=== PATIENT | male | born 1970 | race Hispanic/Latino ===

== ENCOUNTER 2019-11-27 10:51 | Inpatient (IN) | payer MEDICARE ==
--- NOTE | 2019-11-27 11:42 | Emergency Department Report ---
ED General Adult HPI - General Chief complaint: Upper Respiratory Infection Stated complaint: PRESISTENT COUGH PUI?: Yes Time Seen by Provider: 11/27/19 11:27 Source: patient, family, RN notes reviewed Mode of arrival: Ambulatory Limitations: Physical Limitation, Other (Patient is a poor historian) - History of Present Illness Initial comments: The patient was evaluated in the emergency department for symptoms described in the history of present illness. He/she was evaluated in the context of the global COVID-19 pandemic, which necessitated consideration that the patient might be at risk for infection with the virus that causes COVID-19. Institutional protocols and algorithms that pertain to the evaluation of patients at risk for COVID-19 are in a state of rapid change based on information released by regulatory bodies including the CDC and federal and state organizations. These policies and algorithms were followed during the patient's care in the emergency department. Please note that these policies, procedures and recommendations changed on a rapid basis. During the entire history and physical examination, I had on complete personal protective equipment. The patient is a 49-year-old gentleman, with a past medical history of psychiatric disease, who reportedly only takes valproic acid. He is brought to the hospital by his caregiver with a complaint of cough, weakness, malaise and fatigue. No fever, no nausea, vomiting, diarrhea, no sick contacts, no travel, and no physical pain. Patient has not had exposure to COVID that the caregiver is aware of. Patient himself is weak and only complains of cough but denies physical pain. Patient is not able to describe the qualitative nature of his symptoms, exacerbating factors, relieving factors, or aggravating factors. -: days(s) Quality: other Consistency: other Improves with: other Worsens with: other Associated Symptoms: other Treatments Prior to Arrival: other - Related Data Allergies Allergy/AdvReac Type Severity Reaction Status Date / Time No Known Allergies Allergy Unverified 11/27/19 11:24 ED Review of Systems ROS: Stated complaint: PRESISTENT COUGH Other details as noted in HPI Comment: Unobtainable due to pts medical conditions Constitutional: malaise Respiratory: cough, shortness of breath Neurological: weakness ED Past Medical Hx - Past Medical History Previous Medical History?: Yes Hx Hypertension: Yes - Surgical History Past Surgical History?: Yes Hx Coronary Stent: Yes Hx Open Heart Surgery: Yes Additional Surgical History: Back - Social History Smoking Status: Current Every Day Smoker Substance Use Type: Prescribed ED Physical Exam - General Limitations: Physical Limitation General appearance: alert, in no apparent distress, obese - Head Head exam: Present: atraumatic, normocephalic - Eye Eye exam: Present: normal appearance, EOMI - ENT ENT exam: Present: normal exam, normal orophraynx, mucous membranes moist, normal external ear exam - Neck Neck exam: Present: normal inspection, full ROM. Absent: tenderness, meningismus - Respiratory Respiratory exam: Present: decreased breath sounds. Absent: respiratory distress, wheezes, rales, rhonchi, stridor - Cardiovascular Cardiovascular Exam: Present: regular rate, normal rhythm, normal heart sounds. Absent: bradycardia, tachycardia, irregular rhythm, systolic murmur, diastolic murmur, rubs, gallop - GI/Abdominal GI/Abdominal exam: Present: soft. Absent: distended, tenderness, guarding, rebound, rigid, pulsatile mass - Rectal Rectal exam: Present: deferred - Extremities Exam Extremities exam: Present: normal inspection, full ROM, pedal edema (1+ edema in the bilateral lower extremity), other (2+ pulses noted in the bilateral upper and lower extremities. There is no palpable cord. negative Homans sign. Muscular compartments are soft. The pelvis is stable.). Absent: calf tenderness - Back Exam Back exam: Present: normal inspection. Absent: tenderness, CVA tenderness (R), CVA tenderness (L), paraspinal tenderness, vertebral tenderness - Neurological Exam Neurological exam: Present: alert, other (No facial droop. Tongue midline. Extraocular movements intact bilaterally. Facial sensation intact to light touch in V1, V2, V3 distribution bilaterally. 5 and a 5 strength in 4 e xtremities. Sensation intact to light touch in 4 extremities.) - Psychiatric Psychiatric exam: Present: flat affect - Skin Skin exam: Present: warm, dry, intact, normal color. Absent: rash ED Course Vital Signs 11/27/19 11/27/19 11/27/19 11:18 11:41 11:45 Temperature 97.9 F Pulse Rate 103 H 98 H Respiratory 22 11 L Rate Blood Pressure 144/72 O2 Sat by Pulse 67 L 88 92 Oximetry 11/27/19 11/27/19 11/27/19 11:48 12:00 12:28 Temperature Pulse Rate 94 H 92 H Respiratory 19 22 Rate Blood Pressure 149/81 149/81 O2 Sat by Pulse 92 96 Oximetry - Reevaluation(s) Reevaluation #1: 11/27/19 12:19 Differential diagnosis, including but not limited to: COVID-19, bacterial pneu monia, viral pneumonia, congestive heart failure Assessment and plan: 49-year-old gentleman, presenting in the midst of the COVID pandemic, hypoxic, with malaise and fatigue, suspect COVID-19. Arterial blood gas demonstrates respiratory acidosis, hypercarbia, hypoxemic respiratory failure, partial metabolic compensation. Patient is awake, and protecting his airway, and does not appear to be in any acute distress, however, he is markedly hypoxic and hypoxemic. We will initiate BiPAP therapy, initiate steroids empirically, obtain appropriate laboratory studies to risk stratify for cytokine storm, placed on isolation, obtain x-ray of the chest, and EKG. Caregiver endorses no DVT or pulmonary embolism risk factors. Reassess once laboratory studies and x-ray have resulted, anticipate admission to the intensive care unit versus stepdown unit. Of note, on supplemental oxygen, 6 L, saturating at 90 to 93%. Reevaluation #2: 11/27/19 12:56 Patient appears clinically improved on BiPAP. Hospital physician, Dr. Nahomi [place] to admit to step down unit We will place infectious disease consult as a courtesy given high suspicion for COVID, will defer to inpatient team to further follow this up. Reevaluation #3: 11/27/19 14:09 Inflammatory markers elevated. Elevated proBNP is appreciated, we do suspect that the patient has pulmonary process going on, but I do not suspect acute congestive heart failure at this time. Patient found to have mild hyperkalemia, currently on BiPAP, GFR 59, mildly to moderately uremic. May be a component of dehydration. Given that patient is on BiPAP, nursing team to perform a swallow screen and if he passes, Kayexalate to be administered orally. If he does not pass, Kayexalate to be administered rectally. Transaminitis reviewed and appreciated. There is no right upper quadrant pain or tenderness. ED Medical Decision Making - Lab Data Result diagrams: 11/27/19 12:08 11/27/19 12:08 Vital Signs 11/27/19 11/27/19 11/27/19 11:18 11:41 11:45 Temperature 97.9 F Pulse Rate 103 H 98 H Respiratory 22 11 L Rate Blood Pressure 144/72 O2 Sat by Pulse 67 L 88 92 Oximetry 11/27/19 11/27/19 11:48 12:00 Temperature Pulse Rate 94 H Respiratory 19 Rate Blood Pressure 149/81 O2 Sat by Pulse 92 Oximetry Lab Results 11/27/19 11/27/19 11/27/19 Range/Units 11:55 12:08 12:08 WBC 10.4 (4.5-11.0) K/mm3 RBC 4.74 (3.65-5.03) M/mm3 Hgb 15.1 (11.8-15.2) gm/dl Hct 45.8 H (35.5-45.6) % MCV 97 H (84-94) fl MCH 32 (28-32) pg MCHC 33 (32-34) % RDW 14.1 (13.2-15.2) % Plt Count 189 (140-440) K/mm3 Add Manual Diff Complete Total Counted 100 Seg Neuts % (Manual) 76.0 H (40.0-70.0) % Band Neutrophils % 3.0 % Lymphocytes % (Manual) 3.0 L (13.4-35.0) % Reactive Lymphs % (Man) 0 % Monocytes % (Manual) 17.0 H (0.0-7.3) % Eosinophils % (Manual) 0 (0.0-4.3) % Basophils % (Manual) 0 (0.0-1.8) % Metamyelocytes % 1.0 % Myelocytes % 0 % Promyelocytes % 0 % Blast Cells % 0 % Nucleated RBC % 1.0 H (0.0-0.9) % Seg Neutrophils # Man 7.9 H (1.8-7.7) K/mm3 Band Neutrophils # 0.3 K/mm3 Lymphocytes # (Manual) 0.3 L (1.2-5.4) K/mm3 Abs React Lymphs (Man) 0.0 K/mm3 Monocytes # (Manual) 1.8 H (0.0-0.8) K/mm3 Eosinophils # (Manual) 0.0 (0.0-0.4) K/mm3 Basophils # (Manual) 0.0 (0.0-0.1) K/mm3 Metamyelocytes # 0.1 K/mm3 Myelocytes # 0.0 K/mm3 Promyelocytes # 0.0 K/mm3 Blast Cells # 0.0 K/mm3 WBC Morphology Not Reportable Hypersegmented Neuts Not Reportable Hyposegmented Neuts Not Reportable Hypogranular Neuts Not Reportable Smudge Cells Not Reportable Toxic Granulation Not Reportable Toxic Vacuolation Not Reportable Dohle Bodies Not Reportable Pelger-Huet Anomaly Not Reportable Malena Rods Not Reportable Platelet Estimate Consistent w auto Clumped Platelets Not Reportable Plt Clumps, EDTA Not Reportable Large Platelets Not Reportable Giant Platelets Not Reportable Platelet Satelliting Not Reportable Plt Morphology Comment Not Reportable RBC Morphology Normal Dimorphic RBCs Not Reportable Polychromasia Not Reportable Hypochromasia Not Reportable Poikilocytosis Not Reportable Anisocytosis Not Reportable Microcytosis Not Reportable Macrocytosis Not Reportable Spherocytes Not Reportable Pappenheimer Bodies Not Reportable Sickle Cells Not Reportable Target Cells Not Reportable Tear Drop Cells Not Reportable Ovalocytes Not Reportable Helmet Cells Not Reportable Herrera-[place] Bodies Not Reportable [place] Not Reportable Dain Cells Not Reportable Bite Cells Not Reportable Crenated Cell Not Reportable Elliptocytes Not Reportable Acanthocytes (Spur) Not Reportable Rouleaux Not Reportable Hemoglobin C Crystals Not Reportable Schistocytes Not Reportable Malaria parasites Not Reportable Rock Bodies Not Reportable Hem Pathologist Commnt No PT 14.6 (12.2-14.9) Sec. INR 1.13 (0.87-1.13) ABG pH 7.250 L (7.350-7.450) pH Units ABG pCO2 85.1 mm Hg ABG pO2 61.4 L (80.0-90.0) mm Hg ABG HCO3 36.5 H (20.0-26.0) mmol/L ABG O2 Saturation 86.3 L (95.0-99.0) % ABG O2 Content 16.8 (0.0-44) ABG Base Excess 5.9 H (-2.0-3.0) mmol/L ABG Hemoglobin 14.6 (14.0-18.0) gm/dl ABG Carboxyhemoglobin 4.8 (0.0-5.0) % ABG Methemoglobin 0.6 (0.0-1.5) % Oxyhemoglobin 81.6 L (95.0-99.0) % FiO2 44 % Sodium (137-145) mmol/L Potassium (3.6-5.0) mmol/L Chloride (98-107) mmol/L Carbon Dioxide (22-30) mmol/L Anion Gap mmol/L BUN (9-20) mg/dL Creatinine (0.8-1.3) mg/dL Estimated GFR ml/min BUN/Creatinine Ratio % Glucose (75-100) mg/dL Lactic Acid (0.7-2.0) mmol/L Calcium (8.4-10.2) mg/dL Magnesium (1.7-2.3) mg/dL Ferritin (30.0-300.0) ng/mL Total Bilirubin (0.1-1.2) mg/dL AST (5-40) units/L ALT (7-56) units/L Alkaline Phosphatase (35-129) units/L Lactate Dehydrogenase (91-180) units/L Total Creatine Kinase (55-170) units/L C-Reactive Protein (0.00-1.30) mg/dL NT-Pro-B Natriuret Pep (0-450) pg/mL Total Protein (6.3-8.2) g/dL Albumin (3.9-5) g/dL Albumin/Globulin Ratio % Procalcitonin (<0.15) ng/mL Salicylates (2.8-20.0) mg/dL Acetaminophen (10.0-30.0) ug/mL Valproic Acid (50-100) ug/mL 11/27/19 11/27/19 11/27/19 Range/Units 12:08 12:08 12:08 WBC (4.5-11.0) K/mm3 RBC (3.65-5.03) M/mm3 Hgb (11.8-15.2) gm/dl Hct (35.5-45.6) % MCV (84-94) fl MCH (28-32) pg MCHC (32-34) % RDW (13.2-15.2) % Plt Count (140-440) K/mm3 Add Manual Diff Total Counted Seg Neuts % (Manual) (40.0-70.0) % Band Neutrophils % % Lymphocytes % (Manual) (13.4-35.0) % Reactive Lymphs % (Man) % Monocytes % (Manual) (0.0-7.3) % Eosinophils % (Manual) (0.0-4.3) % Basophils % (Manual) (0.0-1.8) % Metamyelocytes % % Myelocytes % % Promyelocytes % % Blast Cells % % Nucleated RBC % (0.0-0.9) % Seg Neutrophils # Man (1.8-7.7) K/mm3 Band Neutrophils # K/mm3 Lymphocytes # (Manual) (1.2-5.4) K/mm3 Abs React Lymphs (Man) K/mm3 Monocytes # (Manual) (0.0-0.8) K/mm3 Eosinophils # (Manual) (0.0-0.4) K/mm3 Basophils # (Manual) (0.0-0.1) K/mm3 Metamyelocytes # K/mm3 Myelocytes # K/mm3 Promyelocytes # K/mm3 Blast Cells # K/mm3 WBC Morphology Hypersegmented Neuts Hyposegmented Neuts Hypogranular Neuts Smudge Cells Toxic Granulation Toxic Vacuolation Dohle Bodies Pelger-Huet Anomaly Malena Rods Platelet Estimate Clumped Platelets Plt Clumps, EDTA Large Platelets Giant Platelets Platelet Satelliting Plt Morphology Comment RBC Morphology Dimorphic RBCs Polychromasia Hypochromasia Poikilocytosis Anisocytosis Microcytosis Macrocytosis Spherocytes Pappenheimer Bodies Sickle Cells Target Cells Tear Drop Cells Ovalocytes Helmet Cells Herrera-[place] Bodies [place] Cells Bite Cells Crenated Cell Elliptocytes Acanthocytes (Spur) Rouleaux Hemoglobin C Crystals Schistocytes Malaria parasites Rock Bodies Hem Pathologist Commnt PT (12.2-14.9) Sec. INR (0.87-1.13) ABG pH (7.350-7.450) pH Units ABG pCO2 mm Hg ABG pO2 (80.0-90.0) mm Hg ABG HCO3 (20.0-26.0) mmol/L ABG O2 Saturation (95.0-99.0) % ABG O2 Content (0.0-44) ABG Base Excess (-2.0-3.0) mmol/L ABG Hemoglobin (14.0-18.0) gm/dl ABG Carboxyhemoglobin (0.0-5.0) % ABG Methemoglobin (0.0-1.5) % Oxyhemoglobin (95.0-99.0) % FiO2 % Sodium 138 (137-145) mmol/L Potassium 5.5 H (3.6-5.0) mmol/L Chloride 93.8 L (98-107) mmol/L Carbon Dioxide 38 H (22-30) mmol/L Anion Gap 12 mmol/L BUN 75 H (9-20) mg/dL Creatinine 1.3 (0.8-1.3) mg/dL Estimated GFR 59 ml/min BUN/Creatinine Ratio 58 % Glucose 109 H (75-100) mg/dL Lactic Acid 1.30 (0.7-2.0) mmol/L Calcium 8.3 L (8.4-10.2) mg/dL Magnesium 3.00 H (1.7-2.3) mg/dL Ferritin 818.7 H (30.0-300.0) ng/mL Total Bilirubin 0.40 (0.1-1.2) mg/dL AST 505 H (5-40) units/L ALT 375 H (7-56) units/L Alkaline Phosphatase 121 (35-129) units/L Lactate Dehydrogenase 408 H (91-180) units/L Total Creatine Kinase 83 (55-170) units/L C-Reactive Protein 19.50 H (0.00-1.30) mg/dL NT-Pro-B Natriuret Pep (0-450) pg/mL Total Protein 7.1 (6.3-8.2) g/dL Albumin 3.5 L (3.9-5) g/dL Albumin/Globulin Ratio 1.0 % Procalcitonin (<0.15) ng/mL Salicylates (2.8-20.0) mg/dL Acetaminophen (10.0-30.0) ug/mL Valproic Acid (50-100) ug/mL 11/27/19 11/27/19 11/27/19 Range/Units 12:08 12:08 12:08 WBC (4.5-11.0) K/mm3 RBC (3.65-5.03) M/mm3 Hgb (11.8-15.2) gm/dl Hct (35.5-45.6) % MCV (84-94) fl MCH (28-32) pg MCHC (32-34) % RDW (13.2-15.2) % Plt Count (140-440) K/mm3 Add Manual Diff Total Counted Seg Neuts % (Manual) (40.0-70.0) % Band Neutrophils % % Lymphocytes % (Manual) (13.4-35.0) % Reactive Lymphs % (Man) % Monocytes % (Manual) (0.0-7.3) % Eosinophils % (Manual) (0.0-4.3) % Basophils % (Manual) (0.0-1.8) % Metamyelocytes % % Myelocytes % % Promyelocytes % % Blast Cells % % Nucleated RBC % (0.0-0.9) % Seg Neutrophils # Man (1.8-7.7) K/mm3 Band Neutrophils # K/mm3 Lymphocytes # (Manual) (1.2-5.4) K/mm3 Abs React Lymphs (Man) K/mm3 Monocytes # (Manual) (0.0-0.8) K/mm3 Eosinophils # (Manual) (0.0-0.4) K/mm3 Basophils # (Manual) (0.0-0.1) K/mm3 Metamyelocytes # K/mm3 Myelocytes # K/mm3 Promyelocytes # K/mm3 Blast Cells # K/mm3 WBC Morphology Hypersegmented Neuts Hyposegmented Neuts Hypogranular Neuts Smudge Cells Toxic Granulation Toxic Vacuolation Dohle Bodies Pelger-Huet Anomaly Malena Rods Platelet Estimate Clumped Platelets Plt Clumps, EDTA Large Platelets Giant Platelets Platelet Satelliting Plt Morphology Comment RBC Morphology Dimorphic RBCs Polychromasia Hypochromasia Poikilocytosis Anisocytosis Microcytosis Macrocytosis Spherocytes Pappenheimer Bodies Sickle Cells Target Cells Tear Drop Cells Ovalocytes Helmet Cells Herrera-[place] Bodies [place] Cells Bite Cells Crenated Cell Elliptocytes Acanthocytes (Spur) Rouleaux Hemoglobin C Crystals Schistocytes Malaria parasites Rock Bodies Hem Pathologist Commnt PT (12.2-14.9) Sec. INR (0.87-1.13) ABG pH (7.350-7.450) pH Units ABG pCO2 mm Hg ABG pO2 (80.0-90.0) mm Hg ABG HCO3 (20.0-26.0) mmol/L ABG O2 Saturation (95.0-99.0) % ABG O2 Content (0.0-44) ABG Base Excess (-2.0-3.0) mmol/L ABG Hemoglobin (14.0-18.0) gm/dl ABG Carboxyhemoglobin (0.0-5.0) % ABG Methemoglobin (0.0-1.5) % Oxyhemoglobin (95.0-99.0) % FiO2 % Sodium (137-145) mmol/L Potassium (3.6-5.0) mmol/L Chloride (98-107) mmol/L Carbon Dioxide (22-30) mmol/L Anion Gap mmol/L BUN (9-20) mg/dL Creatinine (0.8-1.3) mg/dL Estimated GFR ml/min BUN/Creatinine Ratio % Glucose (75-100) mg/dL Lactic Acid (0.7-2.0) mmol/L Calcium (8.4-10.2) mg/dL Magnesium (1.7-2.3) mg/dL Ferritin (30.0-300.0) ng/mL Total Bilirubin (0.1-1.2) mg/dL AST (5-40) units/L ALT (7-56) units/L Alkaline Phosphatase (35-129) units/L Lactate Dehydrogenase (91-180) units/L Total Creatine Kinase (55-170) units/L C-Reactive Protein (0.00-1.30) mg/dL NT-Pro-B Natriuret Pep (0-450) pg/mL Total Protein (6.3-8.2) g/dL Albumin (3.9-5) g/dL Albumin/Globulin Ratio % Procalcitonin 0.56 (<0.15) ng/mL Salicylates < 0.3 L (2.8-20.0) mg/dL Acetaminophen 5.0 L (10.0-30.0) ug/mL Valproic Acid 64.7 (50-100) ug/mL 11/27/19 Range/Units 12:22 WBC (4.5-11.0) K/mm3 RBC (3.65-5.03) M/mm3 Hgb (11.8-15.2) gm/dl Hct (35.5-45.6) % MCV (84-94) fl MCH (28-32) pg MCHC (32-34) % RDW (13.2-15.2) % Plt Count (140-440) K/mm3 Add Manual Diff Total Counted Seg Neuts % (Manual) (40.0-70.0) % Band Neutrophils % % Lymphocytes % (Manual) (13.4-35.0) % Reactive Lymphs % (Man) % Monocytes % (Manual) (0.0-7.3) % Eosinophils % (Manual) (0.0-4.3) % Basophils % (Manual) (0.0-1.8) % Metamyelocytes % % Myelocytes % % Promyelocytes % % Blast Cells % % Nucleated RBC % (0.0-0.9) % Seg Neutrophils # Man (1.8-7.7) K/mm3 Band Neutrophils # K/mm3 Lymphocytes # (Manual) (1.2-5.4) K/mm3 Abs React Lymphs (Man) K/mm3 Monocytes # (Manual) (0.0-0.8) K/mm3 Eosinophils # (Manual) (0.0-0.4) K/mm3 Basophils # (Manual) (0.0-0.1) K/mm3 Metamyelocytes # K/mm3 Myelocytes # K/mm3 Promyelocytes # K/mm3 Blast Cells # K/mm3 WBC Morphology Hypersegmented Neuts Hyposegmented Neuts Hypogranular Neuts Smudge Cells Toxic Granulation Toxic Vacuolation Dohle Bodies Pelger-Huet Anomaly Malena Rods Platelet Estimate Clumped Platelets Plt Clumps, EDTA Large Platelets Giant Platelets Platelet Satelliting Plt Morphology Comment RBC Morphology Dimorphic RBCs Polychromasia Hypochromasia Poikilocytosis Anisocytosis Microcytosis Macrocytosis Spherocytes Pappenheimer Bodies Sickle Cells Target Cells Tear Drop Cells Ovalocytes Helmet Cells Herrera-[place] Bodies [place] Dain Cells Bite Cells Crenated Cell Elliptocytes Acanthocytes (Spur) Rouleaux Hemoglobin C Crystals Schistocytes Malaria parasites Rock Bodies Hem Pathologist Commnt PT (12.2-14.9) Sec. INR (0.87-1.13) ABG pH (7.350-7.450) pH Units ABG pCO2 mm Hg ABG pO2 (80.0-90.0) mm Hg ABG HCO3 (20.0-26.0) mmol/L ABG O2 Saturation (95.0-99.0) % ABG O2 Content (0.0-44) ABG Base Excess (-2.0-3.0) mmol/L ABG Hemoglobin (14.0-18.0) gm/dl ABG Carboxyhemoglobin (0.0-5.0) % ABG Methemoglobin (0.0-1.5) % Oxyhemoglobin (95.0-99.0) % FiO2 % Sodium (137-145) mmol/L Potassium (3.6-5.0) mmol/L Chloride (98-107) mmol/L Carbon Dioxide (22-30) mmol/L Anion Gap mmol/L BUN (9-20) mg/dL Creatinine (0.8-1.3) mg/dL Estimated GFR ml/min BUN/Creatinine Ratio % Glucose (75-100) mg/dL Lactic Acid (0.7-2.0) mmol/L Calcium (8.4-10.2) mg/dL Magnesium (1.7-2.3) mg/dL Ferritin (30.0-300.0) ng/mL Total Bilirubin (0.1-1.2) mg/dL AST (5-40) units/L ALT (7-56) units/L Alkaline Phosphatase (35-129) units/L Lactate Dehydrogenase (91-180) units/L Total Creatine Kinase (55-170) units/L C-Reactive Protein (0.00-1.30) mg/dL NT-Pro-B Natriuret Pep 62273 H (0-450) pg/mL Total Protein (6.3-8.2) g/dL Albumin (3.9-5) g/dL Albumin/Globulin Ratio % Procalcitonin (<0.15) ng/mL Salicylates (2.8-20.0) mg/dL Acetaminophen (10.0-30.0) ug/mL Valproic Acid (50-100) ug/mL Vital Signs 11/27/19 11/27/19 11/27/19 11:18 11:41 11:45 Temperature 97.9 F Pulse Rate 103 H 98 H Respiratory 22 11 L Rate Blood Pressure 144/72 O2 Sat by Pulse 67 L 88 92 Oximetry 11/27/19 11/27/19 11/27/19 11:48 12:00 12:28 Temperature Pulse Rate 94 H 92 H Respiratory 19 22 Rate Blood Pressure 149/81 149/81 O2 Sat by Pulse 92 96 Oximetry - EKG Data -: EKG Interpreted by Ok EKG shows normal: sinus rhythm Rate: normal - EKG Data When compared to previous EKG there are: previous EKG unavailable 11/27/19 12:24 Sinus rhythm, 95 bpm, extreme rightward axis deviation, low voltage, right bundle branch block, QTC prolonged, Q waves noted in the inferior leads. The EKG is abnormal. The EKG is not a STEMI - Radiology Data Radiology results: pending, report reviewed, image reviewed Print Report Referring Physician: JUAN J DURHAM Patient Name: CHELE NICOLE Date of : 1970 Sex: Male Report Date: 2019-11-27 Report Status: Finalized Findings [address] [address] XRay Report Signed Patient: CHELE NICOLE MR#: [id number] : 1970 Acct:[id number] Age/Sex: 49 / M ADM Date: 11/27/19 Loc: ED Attending Dr: Ordering Physician: JUAN J DURHAM MD Date of Service: 11/27/19 Procedure(s): XR chest 1V ap Accession Number(s): [id number] cc: JUAN J DURHAM MD Fluoro Time In Minutes: CHEST 1 VIEW 11/27/2019 11:55 AM INDICATION / CLINICAL INFORMATION: hypoxia dyspnea. COMPARISON: None available. FINDINGS: SUPPORT DEVICES: None. HEART / MEDIASTINUM: No significant abnormality. LUNGS / PLEURA: Bilateral inter stitial opacities with airspace opacification in the right lower lung. There is also a small right-sided pleural effusion. No pneumothorax. ADDITIONAL FINDINGS: No significant additional findings. IMPRESSION: 1. Bilateral interstitial opacities could reflect a component of pulmonary edema with small right pleural effusion. 2. There is more focal airspace consolidation in the right lower lung for which developing pneumonia cannot be excluded. Signer Name: Jared Gerber MD Signed: 11/27/2019 12:59 PM Workstation Name: [id number] Transcribed By: SS Dictated By: JARED GERBER Electronically Authenticated By: JARED GERBER Signed Date/Time: 11/27/191258 DD/ 57 TD /TT: Critical Care Time: Yes Critical care time in (mins) excluding proc time.: 35 Critical care attestation.: If time is entered above; I have spent that time in minutes in the direct care of this critically ill patient, excluding procedure time. ED Disposition Clinical Impression: Suspected 2019 novel coronavirus infection, Acute respiratory acidosis, Acute h ypoxemic respiratory failure, Uremia, Hyperkalemia Disposition: OP ADMIT IP TO THIS HOSP Is pt being admited?: Yes Does the pt Need Aspirin: No Condition: Serious
[2019-11-27 12:11] LABS: ABG Base Excess 5.9 mmol/L (-2.0-3.0); ABG HCO3 36.5 mmol/L (20.0-26.0); ABG Methemoglobin 0.6 % (0.0-1.5); ABG Oxygen Saturation 86.3 % (95.0-99.0); ABG PCO2 85.1 mm Hg; ABG PH 7.25 pH Units (7.350-7.450); ABG PO2 61.4 mm Hg (80.0-90.0)
[2019-11-27] MEDS ORDERED: dexAMETHasone 4 MG/ML VIAL IV ONE (12:16)
[2019-11-27] MEDS ORDERED: cefTRIAXone/NS 1 GM/50 ML 1 GM/50 ML BAG IV ONE (12:23)
[2019-11-27] MEDS ORDERED: AZITHROMYCIN 500 MG in SODIUM CHLORIDE 0.9% 250ML 250 ML IV ONE (12:23)
[2019-11-27 12:35] LABS: Hematocrit 45.8 % (35.5-45.6); Hemoglobin 15.1 gm/dl (11.8-15.2); Mean Corpuscular HGB Conc 33 % (32-34); Mean Corpuscular Volume 97 fl (84-94); Platelet Count 189 K/mm3 (140-440); Red Blood Count 4.74 M/mm3 (3.65-5.03); Red Cell Distribution Width 14.1 % (13.2-15.2)
[2019-11-27 12:41] LABS: INR 1.13 (0.87-1.13)
--- NOTE | 2019-11-27 13:04 | XRay Report ---
CHEST 1 VIEW 11/27/2019 11:55 AM INDICATION / CLINICAL INFORMATION: hypoxia dyspnea. COMPARISON: None available. FINDINGS: SUPPORT DEVICES: None. HEART / MEDIASTINUM: No significant abnormality. LUNGS / PLEURA: Bilateral interstitial opacities with airspace opacification in the right lower lung. There is also a small right-sided pleural effusion. No pneumothorax. ADDITIONAL FINDINGS: No significant additional findings. IMPRESSION: 1. Bilateral interstitial opacities could reflect a component of pulmonary edema with small right ple ural effusion. 2. There is more focal airspace consolidation in the right lower lung for which developing pneumonia cannot be excluded. Signer Name: Jose Gerber MD Signed: 11/27/2019 12:59 PM Workstation Name: [id number]
[2019-11-27 13:18] LABS: Albumin 3.5 g/dL (3.9-5); C-Reactive Protein 19.5 mg/dL (0.00-1.30); Calcium 8.3 mg/dL (8.4-10.2)
[2019-11-27 14:02] LABS: Band Neutrophils # (Manual) 0.3 K/mm3; Basophils % (Manual) 0 % (0.0-1.8); Eosinophils % (Manual) 0 % (0.0-4.3); Platelet Estimate Consistent w Auto; RBC Morphology Normal; Total Cells Counted 100
[2019-11-27] MEDS ORDERED: SODIUM CHLORIDE 0.9% 500 ML 500 ML IV ONE (14:08)
[2019-11-27] MEDS ORDERED: SODIUM POLYSTYRENE 15 GM/60 ML ORAL LIQD PR ONE (14:08)
[2019-11-27] MEDS ORDERED: SODIUM CHLORIDE 0.9% 500 ML 500 ML ONE (14:38)
[2019-11-27] MEDS ORDERED: SODIUM POLYSTYRENE 15 GM/60 ML ORAL LIQD ONE (15:03)
--- NOTE | 2019-11-27 18:33 | History and Physical Report ---
History of Present Illness Date of examination: 11/27/19 Date of admission: 11/27/19 12:57 Chief complaint: Cough and shortness of breath for 1 day History of present illness: 49-year-old male with history of psychiatric problems on valproic acid comes in for cough productive of thick mucoid sputum, weakness, malaise and fatigue. No fever or chills. No vomiting or diarrhea. No sick contacts. No exposure to coronavirus. Patient very short of breath and very low oxygen saturations-at the time of admission. His oxygen saturation was 67% on room air at the time of admission improved to 92% with on BiPAP. History of coronary artery disease but no CHF - Past Medical History Previous Medical History?: Yes --Hypertension: Yes --Psychiatric problems - Surgical History Past Surgical History?: Yes --Coronary Stent: Yes --Open Heart Surgery: Yes - Social History Smoking Status: Current Every Day Smoker Substance Use Type: Prescribed Family history --Htn Review of Systems ROS: Stated complaint: PERSISTENT COUGH Constitutional no weight loss or weight gain no fever or chills HEENT no sore throat no post nasal drip no diplopia Neck no neck stiffness no lymph gland enlargement Chest and lungs cough productive of mucoid sputum and sometimes yellow sputum CVS no chest pain no diaphoresis no palpitations GI no nausea no vomiting no diarrhea Genitourinary system no dysuria no flank pain Musculoskeletal system no muscle pains no joint pains [employer] no syncope no seizures Skin no rash no itching Psychiatric no depression no homicidal or suicidal tendencies Hematologic no lymphedema or bruising Endocrine no polydipsia no polyuria no cold intolerance no heat intolerance Medications and Allergies Allergies Allergy/AdvReac Type Severity Reaction Status Date / Time No Known Allergies Allergy Unverified 11/27/19 11:24 Home Medications Medication Instructions Recorded Confirmed Last Taken Type Depakote ER 11/27/19 Unknown History Vistaril 25 mg PO TID 11/27/19 11/27/19 Unknown History ZyPREXA 10 mg PO DAILY 11/27/19 11/27/19 Unknown History ZyPREXA 20 mg PO HS 11/27/19 11/27/19 Unknown History Exam - Constitutional Vitals: Temp Pulse Resp BP Pulse Ox 97.9 F 101 H 23 148/93 97 11/27/19 11:18 11/27/19 16:46 11/27/19 16:46 11/27/19 16:46 11/27/19 16:46 General appearance: Present: no acute distress, well-nourished - EENT Eyes: Present: PERRL ENT: hearing intact, clear oral mucosa - Neck Neck: Present: supple, normal ROM - Respiratory Respiratory effort: normal Respiratory: bilateral: CTA, rhonchi, wheezing - Cardiovascular Heart rate: 78 Rhythm: regular Heart Sounds: Present: S1 & S2. Absent: rub, click - Extremities Extremities: pulses symmetrical, No edema Peripheral Pulses: within normal limits - Abdominal General gastrointestinal: Present: soft, non-tender, non-distended, normal bowel sounds Male genitourinary: Present: normal - Integumentary Integumentary: Present: clear, warm, dry - Musculoskeletal Musculoskeletal: gait normal, strength equal bilaterally - Psychiatric Psychiatric: appropriate mood/affect, intact judgment & insight - Neurologic Neurologic: CNII-XII intact, moves all extremities HEART Score - HEART Score History: Moderately suspicious Age: 45-65 Risk factors: 1-2 risk factors Troponin: 1-3x normal limit - Critical Actions Critical Actions: 4-6 pts:12-16.6% risk of adverse cardiac event. Should be admitted Results - Labs CBC & Chem 7: 11/27/19 12:08 11/27/19 12:08 Labs: Laboratory Last Values WBC 10.4 K/mm3 (4.5-11.0) 11/27/19 12:08 RBC 4.74 M/mm3 (3.65-5.03) 11/27/19 12:08 Hgb 15.1 gm/dl (11.8-15.2) 11/27/19 12:08 Hct 45.8 % (35.5-45.6) H 11/27/19 12:08 MCV 97 fl (84-94) H 11/27/19 12:08 MCH 32 pg (28-32) 11/27/19 12:08 MCHC 33 % (32-34) 11/27/19 12:08 RDW 14.1 % (13.2-15.2) 11/27/19 12:08 Plt Count 189 K/mm3 (140-440) 11/27/19 12:08 Add Manual Diff Complete 11/27/19 12:08 Total Counted 100 11/27/19 12:08 Seg Neuts % (Manual) 76.0 % (40.0-70.0) H 11/27/19 12:08 Band Neutrophils % 3.0 % 11/27/19 12:08 Lymphocytes % (Manual) 3.0 % (13.4-35.0) L 11/27/19 12:08 Reactive Lymphs % (Man) 0 % 11/27/19 12:08 Monocytes % (Manual) 17.0 % (0.0-7.3) H 11/27/19 12:08 Eosinophils % (Manual) 0 % (0.0-4.3) 11/27/19 12:08 Basophils % (Manual) 0 % (0.0-1.8) 11/27/19 12:08 Metamyelocytes % 1.0 % 11/27/19 12:08 Myelocytes % 0 % 11/27/19 12:08 Promyelocytes % 0 % 11/27/19 12:08 Blast Cells % 0 % 11/27/19 12:08 Nucleated RBC % 1.0 % (0.0-0.9) H 11/27/19 12:08 Seg Neutrophils # Man 7.9 K/mm3 (1.8-7.7) H 11/27/19 12:08 Band Neutrophils # 0.3 K/mm3 11/27/19 12:08 Lymphocytes # (Manual) 0.3 K/mm3 (1.2-5.4) L 11/27/19 12:08 Abs React Lymphs (Man) 0.0 K/mm3 11/27/19 12:08 Monocytes # (Manual) 1.8 K/mm3 (0.0-0.8) H 11/27/19 12:08 Eosinophils # (Manual) 0.0 K/mm3 (0.0-0.4) 11/27/19 12:08 Basophils # (Manual) 0.0 K/mm3 (0.0-0.1) 11/27/19 12:08 Metamyelocytes # 0.1 K/mm3 11/27/19 12:08 Myelocytes # 0.0 K/mm3 11/27/19 12:08 Promyelocytes # 0.0 K/mm3 11/27/19 12:08 Blast Cells # 0.0 K/mm3 11/27/19 12:08 WBC Morphology Not Reportable 11/27/19 12:08 Hypersegmented Neuts Not Reportable 11/27/19 12:08 Hyposegmented Neuts Not Reportable 11/27/19 12:08 Hypogranular Neuts Not Reportable 11/27/19 12:08 Smudge Cells Not Reportable 11/27/19 12:08 Toxic Granulation Not Reportable 11/27/19 12:08 Toxic Vacuolation Not Reportable 11/27/19 12:08 Dohle Bodies Not Reportable 11/27/19 12:08 Pelger-Huet Anomaly Not Reportable 11/27/19 12:08 Malena Rods Not Reportable 11/27/19 12:08 Platelet Estimate Consistent w auto 11/27/19 12:08 Clumped Platelets Not Reportable 11/27/19 12:08 Plt Clumps, EDTA Not Reportable 11/27/19 12:08 Large Platelets Not Reportable 11/27/19 12:08 Giant Platelets Not Reportable 11/27/19 12:08 Platelet Satelliting Not Reportable 11/27/19 12:08 Plt Morphology Comment Not Reportable 11/27/19 12:08 RBC Morphology Normal 11/27/19 12:08 Dimorphic RBCs Not Reportable 11/27/19 12:08 Polychromasia Not Reportable 11/27/19 12:08 Hypochromasia Not Reportable 11/27/19 12:08 Poikilocytosis Not Reportable 11/27/19 12:08 Anisocytosis Not Reportable 11/27/19 12:08 Microcytosis Not Reportable 11/27/19 12:08 Macrocytosis Not Reportable 11/27/19 12:08 Spherocytes Not Reportable 11/27/19 12:08 Pappenheimer Bodies Not Reportable 11/27/19 12:08 Sickle Cells Not Reportable 11/27/19 12:08 Target Cells Not Reportable 11/27/19 12:08 Tear Drop Cells Not Reportable 11/27/19 12:08 Ovalocytes Not Reportable 11/27/19 12:08 Helmet Cells Not Reportable 11/27/19 12:08 [place] Bodies Not Reportable 11/27/19 12:08 [place] Rings Not Reportable 11/27/19 12:08 Dain Cells Not Reportable 11/27/19 12:08 Bite Cells Not Reportable 11/27/19 12:08 Crenated Cell Not Reportable 11/27/19 12:08 Elliptocytes Not Reportable 11/27/19 12:08 Acanthocytes (Spur) Not Reportable 11/27/19 12:08 Rouleaux Not Reportable 11/27/19 12:08 Hemoglobin C Crystals Not Reportable 11/27/19 12:08 Schistocytes Not Reportable 11/27/19 12:08 Malaria parasites Not Reportable 11/27/19 12:08 Rock Bodies Not Reportable 11/27/19 12:08 Hem Pathologist Commnt No 11/27/19 12:08 PT 14.6 Sec. (12.2-14.9) 11/27/19 12:08 INR 1.13 (0.87-1.13) 11/27/19 12:08 ABG pH 7.250 pH Units (7.350-7.450) L 11/27/19 11:55 ABG pCO2 85.1 mm Hg 11/27/19 11:55 ABG pO2 61.4 mm Hg (80.0-90.0) L 11/27/19 11:55 ABG HCO3 36.5 mmol/L (20.0-26.0) H 11/27/19 11:55 ABG O2 Saturation 86.3 % (95.0-99.0) L 11/27/19 11:55 ABG O2 Content 16.8 (0.0-44) 11/27/19 11:55 ABG Base Excess 5.9 mmol/L (-2.0-3.0) H 11/27/19 11:55 ABG Hemoglobin 14.6 gm/dl (14.0-18.0) 11/27/19 11:55 ABG Carboxyhemoglobin 4.8 % (0.0-5.0) 11/27/19 11:55 ABG Methemoglobin 0.6 % (0.0-1.5) 11/27/19 11:55 Oxyhemoglobin 81.6 % (95.0-99.0) L 11/27/19 11:55 FiO2 44 % 11/27/19 11:55 Sodium 138 mmol/L (137-145) 11/27/19 12:08 Potassium 5.5 mmol/L (3.6-5.0) H 11/27/19 12:08 Chloride 93.8 mmol/L (98-107) L 11/27/19 12:08 Carbon Dioxide 38 mmol/L (22-30) H 11/27/19 12:08 Anion Gap 12 mmol/L 11/27/19 12:08 BUN 75 mg/dL (9-20) H 11/27/19 12:08 Creatinine 1.3 mg/dL (0.8-1.3) 11/27/19 12:08 Estimated GFR 59 ml/min 11/27/19 12:08 BUN/Creatinine Ratio 58 % 11/27/19 12:08 Glucose 109 mg/dL (75-100) H 11/27/19 12:08 Lactic Acid 1.30 mmol/L (0.7-2.0) 11/27/19 12:08 Calcium 8.3 mg/dL (8.4-10.2) L 11/27/19 12:08 Magnesium 3.00 mg/dL (1.7-2.3) H 11/27/19 12:08 Ferritin 818.7 ng/mL (30.0-300.0) H 11/27/19 12:08 Total Bilirubin 0.40 mg/dL (0.1-1.2) 11/27/19 12:08 AST 505 units/L (5-40) H 11/27/19 12:08 ALT 375 units/L (7-56) H 11/27/19 12:08 Alkaline Phosphatase 121 units/L (35-129) 11/27/19 12:08 Lactate Dehydrogenase 408 units/L (91-180) H 11/27/19 12:08 Total Creatine Kinase 83 units/L (55-170) 11/27/19 12:08 C-Reactive Protein 19.50 mg/dL (0.00-1.30) H 11/27/19 12:08 NT-Pro-B Natriuret Pep 47090 pg/mL (0-450) H 11/27/19 12:22 Total Protein 7.1 g/dL (6.3-8.2) 11/27/19 12:08 Albumin 3.5 g/dL (3.9-5) L 11/27/19 12:08 Albumin/Globulin Ratio 1.0 % 11/27/19 12:08 Procalcitonin 0.56 ng/mL (<0.15) 11/27/19 12:08 Salicylates < 0.3 mg/dL (2.8-20.0) L 11/27/19 12:08 Acetaminophen 5.0 ug/mL (10.0-30.0) L 11/27/19 12:08 Valproic Acid 64.7 ug/mL (50-100) 11/27/19 12:08 Short CBC 11/27/19 Range/Units 12:08 WBC 10.4 (4.5-11.0) K/mm3 Hgb 15.1 (11.8-15.2) gm/dl Hct 45.8 H (35.5-45.6) % Plt Count 189 (140-440) K/mm3 BMP 11/27/19 12:08 Sodium 138 Potassium 5.5 H Chloride 93.8 L Carbon Dioxide 38 H BUN 75 H Creatinine 1.3 Glucose 109 H Calcium 8.3 L Cardiac Enzymes 11/27/19 Range/Units 12:08 Total Creatine Kinase 83 (55-170) units/L Liver Function 11/27/19 Range/Units 12:08 Total Bilirubin 0.40 (0.1-1.2) mg/dL AST 505 H (5-40) units/L ALT 375 H (7-56) units/L Alkaline Phosphatase 121 (35-129) units/L Albumin 3.5 L (3.9-5) g/dL Microbiology: Microbiology 11/27/19 12:08 Peripheral/Venous Blood Culture - Preliminary Culture in Progress 11/27/19 12:08 Peripheral/Venous Blood Culture - Preliminary Culture in Progress - Imaging and Cardiology Chest x-ray: report reviewed Imaging and Cardiology: CXR IMPRESSION: 1. Bilateral interstitial opacities could reflect a component of pulmonary edema with small right pleural effusion. 2. There is more focal airspace consolidation in the right lower lung for which developing pneumonia cannot be excluded. Signer Name: Jose Gerber MD Signed: 11/27/2019 12:59 PM Workstation Name: [id number] Assessment and Plan Assessment and plan: Critical care statement The high probability OF a clinically significant sudden or life-threatening deterioration of the cardiorespiratory system and endocrine system required my full and direct attention, intervention and postoperative management. The aggregate critical care time was 40 minutes. The time is in addition to time spent performing reported procedures but includes the followin: Data review and interpretation 2: Patient assessment and monitoring of vital signs 3: Documentation 4:: Medication orders and management Advance Directives: Yes (Full code) VTE prophylaxis?: Chemical Plan of care discussed with patient/family: Yes - Patient Problems (1) Acute hypoxemic respiratory failure Current Visit: Yes Status: Acute Plan to address problem: Patient is severely hypoxic Patient needs to be on BiPAP Differential diagnosis of COVID pneumonia, bilateral pneumonia which is commu nity-acquired and CHF exacerbation BNP is high--in 16,000's (2) Hypercapnic respiratory failure Current Visit: Yes Status: Acute Qualifiers: Chronicity: acute on chronic Qualified Code(s): J96.22 - Acute and chronic respiratory failure with hypercapnia Plan to address problem: Duo nebs [id number] and every 3 as needed (3) Suspected 2019 novel coronavirus infection Current Visit: Yes Status: Acute Plan to address problem: Coronavirus PCR ordered Inflammatory markers are also elevated Liver enzymes elevated Clinical picture including the labs point to COVID-19 infection (4) Hyperkalemia Current Visit: Yes Status: Acute Plan to address problem: Treated (5) Hypertension Current Visit: Yes Status: Chronic Qualifiers: Hypertension type: essential hypertension Qualified Code(s): I10 - Essential (primary) hypertension Plan to address problem: Continue antihypertensives (6) Acute exacerbation of CHF (congestive heart failure) Current Visit: Yes Status: Acute Qualifiers: Heart failure type: combined systolic and diastolic Qualified Code(s): I50.43 - Acute on chronic combined systolic (congestive) and diastolic (congestive) heart failure Plan to address problem: BNP is high Small pleural effusion on the right side Will get echocardiogram We will get cardiology consult (7) Elevated LFTs Current Visit: Yes Status: Acute Plan to address problem: Possibly secondary to covid infection Hepatitis profile ordered (8) Coronary artery disease Current Visit: Yes Status: Chronic Qualifiers: Coronary Disease-Associated Artery/Lesion type: [place] artery [place] vs. transplanted heart: [place] heart Plan to address problem: Continue aspirin and Plavix (9) DVT prophylaxis Current Visit: Yes Status: Acute Plan to address problem: On Lovenox and GI prophylaxis
[2019-11-27] MEDS ORDERED: ACETAMINOPHEN 325 MG TAB PO PRN (19:22)
[2019-11-27] MEDS ORDERED: HYDROmorphone 1 MG/1 ML INJ IV PRN (19:22)
[2019-11-27] MEDS ORDERED: METOCLOPRAMIDE 10 MG/2 ML INJ IV PRN (19:22)
[2019-11-27] MEDS ORDERED: MORPHINE 2 MG/1 ML INJ IV PRN (19:22)
[2019-11-27] MEDS ORDERED: ONDANSETRON 4 MG/2 ML INJ IV PRN (19:22)
[2019-11-27] MEDS ORDERED: IPRATROPIUM/ALBUTEROL SULFATE 3 ML AMPUL.NEB IH PRN ×2 (19:24→19:30)
[2019-11-27] MEDS ORDERED: CALCIUM GLUCONATE 2,000 MG in SODIUM CHLORIDE 0.9% 100 ML IV ONE (19:27)
[2019-11-27] MEDS ORDERED: HYDROmorphone 1 MG/1 ML INJ ONE (19:46)
[2019-11-27] MEDS: cefTRIAXone/NS 2 GM/100 ML 2 GM/100 ML BAG IV SCH (19:51)
[2019-11-27] MEDS ORDERED: IPRATROPIUM/ALBUTEROL SULFATE 3 ML AMPUL.NEB IH SCH (20:00)
[2019-11-27] MEDS ORDERED: LORazepam 2 MG/ML VIAL IM PRN (20:11)
[2019-11-27] MEDS ORDERED: LORazepam 2 MG/ML VIAL ONE (20:15)
[2019-11-27] MEDS: LORazepam 2 MG/ML VIAL IV PRN (20:21)
[2019-11-27] MEDS: DIVALPROEX ER 250 MG TAB PO SCH (21:14)
[2019-11-27] MEDS: methylPREDNISolone Sod Succinate 125 MG/2 ML INJ IV SCH (21:20)
[2019-11-27] MEDS: FAMOTIDINE 20 MG/2 ML INJ IV SCH (21:20)
[2019-11-27] MEDS ORDERED: DEPAKOTE 250 MG PO SCH (22:00)
[2019-11-27] MEDS ORDERED: ZYPREXA 20 MG PO SCH (22:00)
[2019-11-27] MEDS ORDERED: MIDAZOLAM 2 MG/2 ML INJ IV ONE (23:00)
[2019-11-27] MEDS ORDERED: fentaNYL 100 MCG/2 ML INJ IV ONE (23:00)
[2019-11-27] MEDS ORDERED: fentaNYL 100 MCG/2 ML INJ ONE (23:06)
[2019-11-27] MEDS ORDERED: MIDAZOLAM 2 MG/2 ML INJ ONE (23:07)
--- NOTE | 2019-11-28 01:08 | XRay Report ---
CHEST 1 VIEW INDICATION: S/P oral Intubation. COMPARISON: One day prior. FINDINGS: Support devices: Endotracheal tube tip is at the level of the clavicles. Esophagogastric tube extends below the edge of the image in the upper abdomen. Heart: Stable. Lungs/Pleura: No pneumothorax is seen. Previously seen interstitial opacities and small right pleural effusion or cyst. IMPRESSION: 1. Support devices as above. No pneumothorax. Signer Name: Tony Casey MD Signed: 11/28/2019 1:03 AM Workstation Name: [id number]
[2019-11-28] MEDS: IPRATROPIUM/ALBUTEROL SULFATE 3 ML AMPUL.NEB IH SCH ×5 (04:45→19:19)
[2019-11-28] MEDS: FUROSEMIDE 40 MG/4 ML INJ IV SCH ×2 (05:42→19:04)
[2019-11-28] MEDS: methylPREDNISolone Sod Succinate 125 MG/2 ML INJ IV SCH ×3 (05:42→21:56)
[2019-11-28] MEDS: fentaNYL 100 MCG/2 ML INJ IV PRN ×2 (06:30→22:40)
--- NOTE | 2019-11-28 10:40 | Consultation ---
History of Present Illness - Reason for Consult Consult date: 11/28/19 Rule out COVID Requesting physician: DAVE NEVAREZ - History of Present Illness 49 years old female with morbid obesity, psychiatric disorder, admitted on 11/27/2019 due to a week history of worsening shortness of breath, cough, generalized weakness, malaise. Patient is unable to provide history due to being intubated. Per records she denies any exposure to COVID-19 infection. On arrival, temperature was 97.9, HR 103, RR 22, O2 sats down to 69%. Patient initially was placed on BiPAP unfortunately was intubated overnight. Initial WBC 10.4. Creatinine 1.3. AST 505/ALT 375/LDH 408. CRP 19. BNP 16,236. Procalcitonin 0.5. Chest x-ray shows bilateral interstitial opacities with more focal consolidation on the right lower lobe. Patient is currently intubated with an FiO2 of 70%. Review of Systems: reviewed ED and H&P notes. Limited due to PPE conservation strategy Medications and Allergies Allergies Allergy/AdvReac Type Severity Reaction Status Date / Time No Known Allergies Allergy Unverified 11/27/19 11:24 Home Medications Medication Instructions Recorded Confirmed Last Taken Type Depakote ER 11/27/19 Unknown History Vistaril 25 mg PO TID 11/27/19 11/27/19 Unknown History ZyPREXA 10 mg PO DAILY 11/27/19 11/27/19 Unknown History ZyPREXA 20 mg PO HS 11/27/19 11/27/19 Unknown History Active Meds: Active Medications Acetaminophen (Tylenol) 650 mg PO Q4H PRN PRN Reason: Pain MILD(1-3)/Fever >100.5/[facility] Albuterol/Ipratropium (Duoneb *Not For Prn Use*) 1 ampul IH Q3H PRN PRN Reason: Wheezing Last Admin: 11/28/19 02:00 Dose: 1 ampul Documented by: Albuterol/Ipratropium (Duoneb *Not For Prn Use*) 1 ampul IH QIDRT [facility] Last Admin: 11/28/19 08:37 Dose: 1 ampul Documented by: Divalproex Sodium (Depakote Er) 250 mg PO BID [facility] Last Admin: 11/27/19 21:14 Dose: Not Given Documented by: Famotidine (Pepcid) 20 mg IV BID [facility] Last Admin: 11/27/19 21:20 Dose: 20 mg Documented by: Fentanyl (Sublimaze) 50 mcg IV Q2H PRN PRN Reason: Sedation Last Admin: 11/28/19 06:30 Dose: 50 mcg Documented by: Furosemide (Lasix) 40 mg IV 0600,1800 [facility] Last Admin: 11/28/19 05:42 Dose: 40 mg Documented by: Hydromorphone HCl (Dilaudid) 0.5 mg IV Q3H PRN PRN Reason: Pain , Severe (7-10) Last Admin: 11/27/19 20:14 Dose: 0.5 mg Documented by: Ceftriaxone Sodium (Rocephin/Ns 2 Gm/100 Ml) 2 gm in 100 mls @ 200 mls/hr IV Q24HR [facility]; Protocol Last Admin: 11/27/19 19:51 Dose: 200 mls/hr Documented by: Azithromycin 500 mg/ Sodium (Chloride) 250 mls @ 250 mls/hr IV Q24HR [facility]; Protocol Propofol (Diprivan 10 Mg/Ml) 1,000 mg in 100 mls @ 4.627 mls/hr IV TITR [facility]; Protocol Last Admin: 11/28/19 06:52 Dose: 5 mcg/kg/min, 4.627 mls/hr Documented by: Lorazepam (Ativan) 0.5 mg IV Q3H PRN PRN Reason: Agitation Last Admin: 11/27/19 20:21 Dose: 0.5 mg Documented by: Methylprednisolone Sodium Succinate (Solu-Medrol) 60 mg IV Q8HR [facility] Last Admin: 11/28/19 05:42 Dose: 60 mg Documented by: Metoclopramide HCl (Reglan) 10 mg IV Q6H PRN PRN Reason: Nausea And Vomiting Morphine Sulfate (Morphine) 2 mg IV Q4H PRN PRN Reason: Pain, Moderate (4-6) Olanzapine (Zyprexa) 20 mg PO HS [facility] Last Admin: 11/27/19 21:16 Dose: Not Given Documented by: Ondansetron HCl (Zofran) 4 mg IV Q3H PRN PRN Reason: Nausea And Vomiting Sodium Chloride (Sodium Chloride Flush Syringe 10 Ml) 10 ml IV BID [facility] Last Admin: 11/27/19 21:20 Dose: 10 ml Documented by: Sodium Chloride (Sodium Chloride Flush Syringe 10 Ml) 10 ml IV PRN PRN PRN Reason: LINE FLUSH Physical Examination - Physical Exam Narrative exam: Physical Exam: reviewed ED and hospitalist notes, limited due to conservation of PPE and decrease risk of transmission. General appearance: limited due to conservation of PPE Eyes: limited due to conservation of PPE HENT: Atraumatic; limited due to conservation of PPE Lungs: limited due to conservation of PPE CV: limited due to conservation of PPE Abdomen: limited due to conservation of PPE Extremities: limited due to conservation of PPE Skin: limited due to conservation of PPE Psych: limited due to conservation of PPE Neuro: limited due to conservation of PPE - Constitutional Vitals: Vital Signs Temp Pulse Resp BP Pulse Ox 97.8 F 100 H 26 H 121/75 99 11/28/19 03:42 11/28/19 08:38 11/28/19 08:38 11/28/19 08:04 11/28/19 08:04 Temperature -Last 24 Hours Temperature 97.8 F Temperature 97.7 F Temperature 97.9 F Results - Labs CBC & Chem 7: 11/27/19 12:08 11/27/19 12:08 Labs: Abnormal lab results 11/27/19 11/27/19 11/27/19 Range/Units 11:55 12:08 12:08 Hct 45.8 H (35.5-45.6) % MCV 97 H (84-94) fl Seg Neuts % (Manual) 76.0 H (40.0-70.0) % Lymphocytes % (Manual) 3.0 L (13.4-35.0) % Monocytes % (Manual) 17.0 H (0.0-7.3) % Nucleated RBC % 1.0 H (0.0-0.9) % Seg Neutrophils # Man 7.9 H (1.8-7.7) K/mm3 Lymphocytes # (Manual) 0.3 L (1.2-5.4) K/mm3 Monocytes # (Manual) 1.8 H (0.0-0.8) K/mm3 ABG pH 7.250 L (7.350-7.450) pH Units POC ABG pCO2 (32.0-48.0) mmHg POC ABG pO2 (83-108) mmHg ABG pO2 61.4 L (80.0-90.0) mm Hg ABG HCO3 36.5 H (20.0-26.0) mmol/L ABG O2 Saturation 86.3 L (95.0-99.0) % ABG Base Excess 5.9 H (-2.0-3.0) mmol/L Oxyhemoglobin 81.6 L (95.0-99.0) % Potassium 5.5 H (3.6-5.0) mmol/L Chloride 93.8 L (98-107) mmol/L Carbon Dioxide 38 H (22-30) mmol/L BUN 75 H (9-20) mg/dL Glucose 109 H (75-100) mg/dL Calcium 8.3 L (8.4-10.2) mg/dL Magnesium 3.00 H (1.7-2.3) mg/dL Ferritin (30.0-300.0) ng/mL AST 505 H (5-40) units/L ALT 375 H (7-56) units/L Lactate Dehydrogenase 408 H (91-180) units/L C-Reactive Protein 19.50 H (0.00-1.30) mg/dL NT-Pro-B Natriuret Pep (0-450) pg/mL Albumin 3.5 L (3.9-5) g/dL Salicylates (2.8-20.0) mg/dL Acetaminophen (10.0-30.0) ug/mL 11/27/19 11/27/19 11/27/19 Range/Units 12:08 12:08 12:08 Hct (35.5-45.6) % MCV (84-94) fl Seg Neuts % (Manual) (40.0-70.0) % Lymphocytes % (Manual) (13.4-35.0) % Monocytes % (Manual) (0.0-7.3) % Nucleated RBC % (0.0-0.9) % Seg Neutrophils # Man (1.8-7.7) K/mm3 Lymphocytes # (Manual) (1.2-5.4) K/mm3 Monocytes # (Manual) (0.0-0.8) K/mm3 ABG pH (7.350-7.450) pH Units POC ABG pCO2 (32.0-48.0) mmHg POC ABG pO2 (83-108) mmHg ABG pO2 (80.0-90.0) mm Hg ABG HCO3 (20.0-26.0) mmol/L ABG O2 Saturation (95.0-99.0) % ABG Base Excess (-2.0-3.0) mmol/L Oxyhemoglobin (95.0-99.0) % Potassium (3.6-5.0) mmol/L Chloride (98-107) mmol/L Carbon Dioxide (22-30) mmol/L BUN (9-20) mg/dL Glucose (75-100) mg/dL Calcium (8.4-10.2) mg/dL Magnesium (1.7-2.3) mg/dL Ferritin 818.7 H (30.0-300.0) ng/mL AST (5-40) units/L ALT (7-56) units/L Lactate Dehydrogenase (91-180) units/L C-Reactive Protein (0.00-1.30) mg/dL NT-Pro-B Natriuret Pep (0-450) pg/mL Albumin (3.9-5) g/dL Salicylates < 0.3 L (2.8-20.0) mg/dL Acetaminophen 5.0 L (10.0-30.0) ug/mL 11/27/19 11/27/19 11/28/19 Range/Units 12:22 22:40 01:45 Hct (35.5-45.6) % MCV (84-94) fl Seg Neuts % (Manual) (40.0-70.0) % Lymphocytes % (Manual) (13.4-35.0) % Monocytes % (Manual) (0.0-7.3) % Nucleated RBC % (0.0-0.9) % Seg Neutrophils # Man (1.8-7.7) K/mm3 Lymphocytes # (Manual) (1.2-5.4) K/mm3 Monocytes # (Manual) (0.0-0.8) K/mm3 ABG pH 7.086 L 7.257 L (7.350-7.450) pH Units POC ABG pCO2 133.5 H 81.8 H (32.0-48.0) mmHg POC ABG pO2 78.4 L 172.6 H (83-108) mmHg ABG pO2 (80.0-90.0) mm Hg ABG HCO3 (20.0-26.0) mmol/L ABG O2 Saturation (95.0-99.0) % ABG Base Excess (-2.0-3.0) mmol/L Oxyhemoglobin (95.0-99.0) % Potassium (3.6-5.0) mmol/L Chloride (98-107) mmol/L Carbon Dioxide (22-30) mmol/L BUN (9-20) mg/dL Glucose (75-100) mg/dL Calcium (8.4-10.2) mg/dL Magnesium (1.7-2.3) mg/dL Ferritin (30.0-300.0) ng/mL AST (5-40) units/L ALT (7-56) units/L Lactate Dehydrogenase (91-180) units/L C-Reactive Protein (0.00-1.30) mg/dL NT-Pro-B Natriuret Pep 71057 H (0-450) pg/mL Albumin (3.9-5) g/dL Salicylates (2.8-20.0) mg/dL Acetaminophen (10.0-30.0) ug/mL 11/28/19 Range/Units 05:25 Hct (35.5-45.6) % MCV (84-94) fl Seg Neuts % (Manual) (40.0-70.0) % Lymphocytes % (Manual) (13.4-35.0) % Monocytes % (Manual) (0.0-7.3) % Nucleated RBC % (0.0-0.9) % Seg Neutrophils # Man (1.8-7.7) K/mm3 Lymphocytes # (Manual) (1.2-5.4) K/mm3 Monocytes # (Manual) (0.0-0.8) K/mm3 ABG pH (7.350-7.450) pH Units POC ABG pCO2 64.2 H (32.0-48.0) mmHg POC ABG pO2 68.1 L (83-108) mmHg ABG pO2 (80.0-90.0) mm Hg ABG HCO3 (20.0-26.0) mmol/L ABG O2 Saturation (95.0-99.0) % ABG Base Excess (-2.0-3.0) mmol/L Oxyhemoglobin (95.0-99.0) % Potassium (3.6-5.0) mmol/L Chloride (98-107) mmol/L Carbon Dioxide (22-30) mmol/L BUN (9-20) mg/dL Glucose (75-100) mg/dL Calcium (8.4-10.2) mg/dL Magnesium (1.7-2.3) mg/dL Ferritin (30.0-300.0) ng/mL AST (5-40) units/L ALT (7-56) units/L Lactate Dehydrogenase (91-180) units/L C-Reactive Protein (0.00-1.30) mg/dL NT-Pro-B Natriuret Pep (0-450) pg/mL Albumin (3.9-5) g/dL Salicylates (2.8-20.0) mg/dL Acetaminophen (10.0-30.0) ug/mL Assessment and Plan Cultures: Blood culture pending SARS CoV2 PCR pending Assessment: 49 years old female with morbid obesity, psychiatric disorder, admitted on 11/27/2019 due to a week history of worsening shortness of breath, cough, generalized weakness, malaise: #Severe sepsis: Present on admission with tachycardia, severe hypoxia likely due to bilateral pneumonia. #Suspect Critical COVID pneumonia: SARS-CoV-2 PCR pending. Inflammatory markers, ferritin, CRP and LDH daily elevated. D-dimer pending. Noted elevated BNP #Acute hypoxemic respiratory failure: Initial O2 sat 69%, patient was on BiPAP, now intubated. Likely secondary to COVID-19 pneumonia. However should rule out community-acquired pneumonia given mild elevated procalcitonin and CHF exacerbation given elevated BNP 16,236. #Elevated LFTs: Elevated 10 times baseline. From COVID #Morbid obesity: Associated with poor cell counts. Recommendations: -Obtain SARS-CoV-2 PCR -Obtain SARS CoV-2 IgG if negative, then patient is a candidate for COVID convalescent plasma -Start Dexamethasone 6 mg IV/PO daily for 10 days -Patient is not a candidate for Remdesivir due to elevated LFTs to 10 times normal value -Monitor inflammatory markers - ferritin, Ddimer, CRP, LDH. D-dimer is pending -Continue ceftriaxone and azithromycin -Continue anticoagulation per System Protocol -Prone positioning as possible -Agree with transthoracic echocardiogram High mortality All laboratory, cultures and imaging were reviewed. Will follow Joanna Durham MD Infectious Diseases [employer] [facility] M [phone] O [phone]
[2019-11-28] MEDS ORDERED: SODIUM CHLORIDE 0.9% 500 ML 500 ML ONE (11:29)
[2019-11-28] MEDS: cefTRIAXone/NS 2 GM/100 ML 2 GM/100 ML BAG IV SCH (11:43)
[2019-11-28] MEDS: AZITHROMYCIN 500 MG in SODIUM CHLORIDE 0.9% 250ML 250 ML IV SCH (11:43)
[2019-11-28] MEDS: FAMOTIDINE 20 MG/2 ML INJ IV SCH ×2 (11:43→21:56)
--- NOTE | 2019-11-28 11:48 | Consultation ---
History of Present Illness Consult date: 11/28/19 Requesting physician: DAVE NEVAREZ Reason for consult: hypoxemia History of present illness: 49 y/o male who presented to the ED on yesterday with hypoxic respiratory failure with concern for pneumonia, COVID 19 and CHF. Called by IMS last night about respiratory failure and patient was being admitted to IMCU. Called by nurse a few hours later that patient is completely unresponsive on bipap therapy after being sedated in the ED. Asked for ABG which came back with a pH of 7.086 and CO2 of 133. Patient was intubated. Repeat ABG showed improvement and adjustments were made. COVID test is pending and ABG is improving. Past History Past Medical History: other (unable to obtain) Past Surgical History: Other (unable to obtain) Social history: other (unable to obtain) Family history: other (unable to obtain) Medications and Allergies Allergies Allergy/AdvReac Type Severity Reaction Status Date / Time No Known Allergies Allergy Unverified 11/27/19 11:24 Home Medications Medication Instructions Recorded Confirmed Last Taken Type Depakote ER 11/27/19 Unknown History Vistaril 25 mg PO TID 11/27/19 11/27/19 Unknown History ZyPREXA 10 mg PO DAILY 11/27/19 11/27/19 Unknown History ZyPREXA 20 mg PO HS 11/27/19 11/27/19 Unknown History Active Meds: Active Medications Acetaminophen (Tylenol) 650 mg PO Q4H PRN PRN Reason: Pain MILD(1-3)/Fever >100.5/[facility] Albuterol/Ipratropium (Duoneb *Not For Prn Use*) 1 ampul IH Q3H PRN PRN Reason: Wheezing Last Admin: 11/28/19 02:00 Dose: 1 ampul Documented by: Albuterol/Ipratropium (Duoneb *Not For Prn Use*) 1 ampul IH QIDRT [facility] Last Admin: 11/28/19 08:37 Dose: 1 ampul Documented by: Divalproex Sodium (Depakote Er) 250 mg PO BID [facility] Last Admin: 11/27/19 21:14 Dose: Not Given Documented by: Famotidine (Pepcid) 20 mg IV BID [facility] Last Admin: 11/27/19 21:20 Dose: 20 mg Documented by: Fentanyl (Sublimaze) 50 mcg IV Q2H PRN PRN Reason: Sedation Last Admin: 11/28/19 06:30 Dose: 50 mcg Documented by: Furosemide (Lasix) 40 mg IV 0600,1800 [facility] Last Admin: 11/28/19 05:42 Dose: 40 mg Documented by: Hydromorphone HCl (Dilaudid) 0.5 mg IV Q3H PRN PRN Reason: Pain , Severe (7-10) Last Admin: 11/27/19 20:14 Dose: 0.5 mg Documented by: Ceftriaxone Sodium (Rocephin/Ns 2 Gm/100 Ml) 2 gm in 100 mls @ 200 mls/hr IV Q24HR [facility]; Protocol Last Admin: 11/27/19 19:51 Dose: 200 mls/hr Documented by: Azithromycin 500 mg/ Sodium (Chloride) 250 mls @ 250 mls/hr IV Q24HR [facility]; Protocol Propofol (Diprivan 10 Mg/Ml) 1,000 mg in 100 mls @ 4.627 mls/hr IV TITR [facility]; Protocol Last Admin: 11/28/19 06:52 Dose: 5 mcg/kg/min, 4.627 mls/hr Documented by: Lorazepam (Ativan) 0.5 mg IV Q3H PRN PRN Reason: Agitation Last Admin: 11/27/19 20:21 Dose: 0.5 mg Documented by: Methylprednisolone Sodium Succinate (Solu-Medrol) 60 mg IV Q8HR [facility] Last Admin: 11/28/19 05:42 Dose: 60 mg Documented by: Metoclopramide HCl (Reglan) 10 mg IV Q6H PRN PRN Reason: Nausea And Vomiting Morphine Sulfate (Morphine) 2 mg IV Q4H PRN PRN Reason: Pain, Moderate (4-6) Olanzapine (Zyprexa) 20 mg PO HS [facility] Last Admin: 11/27/19 21:16 Dose: Not Given Documented by: Ondansetron HCl (Zofran) 4 mg IV Q3H PRN PRN Reason: Nausea And Vomiting Sodium Chloride (Sodium Chloride Flush Syringe 10 Ml) 10 ml IV BID [facility] Last Admin: 11/27/19 21:20 Dose: 10 ml Documented by: Sodium Chloride (Sodium Chloride Flush Syringe 10 Ml) 10 ml IV PRN PRN PRN Reason: LINE FLUSH Review of Systems ROS unobtainable: due to endotracheal tube, due to mental status Physical Examination Vital signs: Vital Signs Temp Pulse Resp BP Pulse Ox 97.9 F 103 H 22 144/72 67 L 11/27/19 11:18 11/27/19 11:18 11/27/19 11:18 11/27/19 11:18 11/27/19 11:18 Results - Laboratory Findings CBC and BMP: 11/27/19 12:08 11/27/19 12:08 ABG ABG pH 7.360 (7.320-7.450) 11/28/19 05:25 POC ABG pCO2 64.2 mmHg (32.0-48.0) H 11/28/19 05:25 ABG pCO2 85.1 mm Hg 11/27/19 11:55 POC ABG pO2 68.1 mmHg (83-108) L 11/28/19 05:25 ABG pO2 61.4 mm Hg (80.0-90.0) L 11/27/19 11:55 POC ABG HCO3 35.5 11/28/19 05:25 ABG O2 Saturation 86.3 % (95.0-99.0) L 11/27/19 11:55 PT/INR, D-dimer PT 14.6 Sec. (12.2-14.9) 11/27/19 12:08 INR 1.13 (0.87-1.13) 11/27/19 12:08 Abnormal lab findings: Abnormal Labs 11/27/19 11/27/19 11/27/19 11:55 12:08 12:08 Hct 45.8 H MCV 97 H Seg Neuts % (Manual) 76.0 H Lymphocytes % (Manual) 3.0 L Monocytes % (Manual) 17.0 H Nucleated RBC % 1.0 H Seg Neutrophils # Man 7.9 H Lymphocytes # (Manual) 0.3 L Monocytes # (Manual) 1.8 H ABG pH 7.250 L POC ABG pCO2 POC ABG pO2 ABG pO2 61.4 L ABG HCO3 36.5 H ABG O2 Saturation 86.3 L ABG Base Excess 5.9 H Oxyhemoglobin 81.6 L Potassium 5.5 H Chloride 93.8 L Carbon Dioxide 38 H BUN 75 H Glucose 109 H Calcium 8.3 L Magnesium 3.00 H Ferritin AST 505 H ALT 375 H Lactate Dehydrogenase 408 H C-Reactive Protein 19.50 H NT-Pro-B Natriuret Pep Albumin 3.5 L Salicylates Acetaminophen 11/27/19 11/27/19 11/27/19 12:08 12:08 12:08 Hct MCV Seg Neuts % (Manual) Lymphocytes % (Manual) Monocytes % (Manual) Nucleated RBC % Seg Neutrophils # Man Lymphocytes # (Manual) Monocytes # (Manual) ABG pH POC ABG pCO2 POC ABG pO2 ABG pO2 ABG HCO3 ABG O2 Saturation ABG Base Excess Oxyhemoglobin Potassium Chloride Carbon Dioxide BUN Glucose Calcium Magnesium Ferritin 818.7 H AST ALT Lactate Dehydrogenase C-Reactive Protein NT-Pro-B Natriuret Pep Albumin Salicylates < 0.3 L Acetaminophen 5.0 L 11/27/19 11/27/19 11/28/19 12:22 22:40 01:45 Hct MCV Seg Neuts % (Manual) Lymphocytes % (Manual) Monocytes % (Manual) Nucleated RBC % Seg Neutrophils # Man Lymphocytes # (Manual) Monocytes # (Manual) ABG pH 7.086 L 7.257 L POC ABG pCO2 133.5 H 81.8 H POC ABG pO2 78.4 L 172.6 H ABG pO2 ABG HCO3 ABG O2 Saturation ABG Base Excess Oxyhemoglobin Potassium Chloride Carbon Dioxide BUN Glucose Calcium Magnesium Ferritin AST ALT Lactate Dehydrogenase C-Reactive Protein NT-Pro-B Natriuret Pep 80432 H Albumin Salicylates Acetaminophen 11/28/19 05:25 Hct MCV Seg Neuts % (Manual) Lymphocytes % (Manual) Monocytes % (Manual) Nucleated RBC % Seg Neutrophils # Man Lymphocytes # (Manual) Monocytes # (Manual) ABG pH POC ABG pCO2 64.2 H POC ABG pO2 68.1 L ABG pO2 ABG HCO3 ABG O2 Saturation ABG Base Excess Oxyhemoglobin Potassium Chloride Carbon Dioxide BUN Glucose Calcium Magnesium Ferritin AST ALT Lactate Dehydrogenase C-Reactive Protein NT-Pro-B Natriuret Pep Albumin Salicylates Acetaminophen - Diagnostic Findings Chest x-ray: image reviewed Assessment and Plan 49 y/o male with acute respiratory failure, hypercapnic respiratory failure, and likely CHF, presevered vs reduced EF 1. Await COVID testing 2. If negative needs 2d echo complete 3. Agree with BID lasix therapy 4. Will consider bronch if secretions do not improve in the next 24 hours 5. Feed patient 6. Needs GI and DVT prophylaxis.
[2019-11-28] MEDS: DIVALPROEX ER 250 MG TAB PO SCH ×2 (11:53→21:56)
[2019-11-28 13:31] LABS: BUN/Creatinine Ratio 46; Blood Urea Nitrogen 46 mg/dL (9-20)
[2019-11-28 13:32] LABS: Alanine Aminotransferase 284 units/L (7-56); Albumin 2.9 g/dL (3.9-5); Hemolysis Index 25
[2019-11-28 13:41] LABS: Hemoglobin 13.6 gm/dl (11.8-15.2); Mean Corpuscular HGB Conc 32 % (32-34); Mean Corpuscular Volume 97 fl (84-94); Platelet Count 207 K/mm3 (140-440); Red Blood Count 4.32 M/mm3 (3.65-5.03); Red Cell Distribution Width 14.7 % (13.2-15.2)
--- NOTE | 2019-11-28 14:14 | Consultation ---
HISTORY OF PRESENT ILLNESS: The patient is a 49-year-old male who presented with cough, thick sputum production, weakness, malaise, fatigue, but no fever. He was very short of breath and his oxygen saturation was noted to be low. No chest pain was described. Right now, he is on mechanical ventilation and is a patient under investigation for coronavirus. There is a history of coronary artery disease, but no details are available. He is a smoker and he has a history of psychiatric problems. So far, there is no description of hypertension, hyperlipidemia, or diabetes. A Cardiology consult was requested because of possible congestive heart failure. There is no description of lung disease, although the patient is a smoker. PAST MEDICAL HISTORY: ALLERGIES: None. MEDICATIONS: See the nurse's list. SOCIAL HISTORY: Smoking, currently a daily smoker. Alcohol, no heavy use described. OPERATIONS: Back surgery, vague description of heart surgery. FAMILY HISTORY: Not available. REVIEW OF SYSTEMS: No other complaints or medical problems described. There is no description of fever, chills, nausea, vomiting, diarrhea, headache, earache, sore throat, skin problems or extreme joint pain. No history of arrhythmias or congestive heart failure. There is no history of strokes. PHYSICAL EXAMINATION: Deferred because of being under investigation for ta. IMPRESSION: 1. Respiratory failure due to either pneumonia or congestive heart failure. An echocardiogram is in progress to check LV function. 2. Vague description of coronary artery disease in the past. 3. Psychiatric history. 4. Abnormal electrolytes. 5. Elevated liver enzymes: Etiology unknown. 6. Abnormal EKG showing right axis deviation, poor R-wave progression, nonspecific ST-T changes. Consider right ventricular hypertrophy. PLAN: Therapy initiated by Infectious Disease, mechanical ventilation. Consider adding TEDDY inhibitors and beta blockers at some point, anticoagulate. Consider checking troponin levels, check for prior cardiac studies. Consider aspirin therapy. Thank you for this consultation. We will follow with patient. JOB# [id number] YOLI/NTS
--- NOTE | 2019-11-28 21:06 | Progress Note ---
Assessment and Plan Critical care statement The high probability OF a clinically significant sudden or life-threatening deterioration of the cardiorespiratory system and endocrine system required my full and direct attention, intervention and postoperative management. The aggregate critical care time was 40 minutes. The time is in addition to time spent performing reported procedures but includes the followin: Data review and interpretation 2: Patient assessment and monitoring of vital signs 3: Documentation 4:: Medication orders and management - Patient Problems (1) Acute hypoxemic respiratory failure Current Visit: Yes Status: Acute Plan to address problem: Patient is intubated Coronavirus negative Severe COPD and CHF (2) Hypercapnic respiratory failure Current Visit: Yes Status: Acute Qualifiers: Chronicity: acute on chronic Qualified Code(s): J96.22 - Acute and chronic respiratory failure with hypercapnia Plan to address problem: Duo nebs [id number] and every 3 as needed IV Solu-Medrol 60 mg every 8 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 (3) Suspected 2019 novel coronavirus infection Current Visit: Yes Status: Acute Plan to address problem: Coronavirus PCR negative (4) Hyperkalemia Current Visit: Yes Status: Acute Plan to address problem: Treated (5) Hypertension Current Visit: Yes Status: Chronic Qualifiers: Hypertension type: essential hypertension Qualified Code(s): I10 - Essential (primary) hypertension Plan to address problem: Continue antihypertensives (6) Acute exacerbation of CHF (congestive heart failure) Current Visit: Yes Status: Acute Qualifiers: Heart failure type: combined systolic and diastolic Qualified Code(s): I50.43 - Acute on chronic combined systolic (congestive) and diastolic (congestive) heart failure Plan to address problem: BNP is high Small pleural effusion on the right side Will get echocardiogram We will get cardiology consult (7) Elevated LFTs Current Visit: Yes Status: Acute Plan to address problem: Passive congestion of the liver secondary to CHF (8) Coronary artery disease Current Visit: Yes Status: Chronic Qualifiers: Coronary Disease-Associated Artery/Lesion type: [place] artery [place] vs. transplanted heart: [place] heart Plan to address problem: Continue aspirin and Plavix (9) DVT prophylaxis Current Visit: Yes Status: Acute Plan to address problem: On Lovenox and GI prophylaxis Subjective Date of service: 11/28/19 Principal diagnosis: Acute respiratory failure with hypoxia Interval history: Overnight patient became more lethargic with CO2 retention of about 130. Patien t was intubated. Objective - Exam Narrative Exam: Patient was intubated. - Constitutional Vitals: Vital Signs - 12hr 11/28/19 11/28/19 11/28/19 09:30 10:00 10:30 Temperature Pulse Rate 90 71 70 Pulse Rate [ Anterior Bilateral Throughout] Respiratory 20 25 H 27 H Rate Respiratory Rate [Anterior Bilateral Throughout] Blood Pressure 115/67 106/64 110/64 O2 Sat by Pulse 96 95 94 Oximetry 11/28/19 11/28/19 11/28/19 11:00 11:30 11:43 Temperature Pulse Rate 69 72 71 Pulse Rate [ Anterior Bilateral Throughout] Respiratory 22 25 H Rate Respiratory Rate [Anterior Bilateral Throughout] Blood Pressure 123/73 112/66 112/46 O2 Sat by Pulse 96 95 94 Oximetry 11/28/19 11/28/19 11/28/19 12:00 12:30 13:00 Temperature Pulse Rate 69 66 72 Pulse Rate [ Anterior Bilateral Throughout] Respiratory 26 H 23 26 H Rate Respiratory Rate [Anterior Bilateral Throughout] Blood Pressure 110/65 118/71 118/71 O2 Sat by Pulse 94 96 97 Oximetry 11/28/19 11/28/19 11/28/19 13:30 14:00 14:31 Temperature Pulse Rate 67 73 97 H Pulse Rate [ 68 Anterior Bilateral Throughout] Respiratory 26 H 26 H 20 Rate Respiratory 26 H Rate [Anterior Bilateral Throughout] Blood Pressure 119/71 131/78 138/78 O2 Sat by Pulse 97 98 95 Oximetry 11/28/19 11/28/19 11/28/19 15:01 15:31 16:00 Temperature Pulse Rate 102 H 98 H 77 Pulse Rate [ Anterior Bilateral Throughout] Respiratory 14 12 26 H Rate Respiratory Rate [Anterior Bilateral Throughout] Blood Pressure 109/80 111/75 130/73 O2 Sat by Pulse 99 95 96 Oximetry 11/28/19 11/28/19 11/28/19 16:30 16:37 17:00 Temperature Pulse Rate 80 77 74 Pulse Rate [ Anterior Bilateral Throughout] Respiratory 26 H 26 H Rate Respiratory Rate [Anterior Bilateral Throughout] Blood Pressure 118/71 118/73 117/69 O2 Sat by Pulse 92 92 94 Oximetry 11/28/19 11/28/19 11/28/19 17:30 18:00 18:30 Temperature Pulse Rate 72 71 75 Pulse Rate [ Anterior Bilateral Throughout] Respiratory 22 26 H 26 H Rate Respiratory Rate [Anterior Bilateral Throughout] Blood Pressure 120/68 115/68 114/66 O2 Sat by Pulse 96 95 92 Oximetry 11/28/19 11/28/19 11/28/19 19:00 19:10 19:20 Temperature Pulse Rate 68 65 Pulse Rate [ 65 Anterior Bilateral Throughout] Respiratory 26 H Rate Respiratory 26 H Rate [Anterior Bilateral Throughout] Blood Pressure 117/69 117/69 O2 Sat by Pulse 93 93 Oximetry 11/28/19 11/28/19 20:00 20:04 Temperature 97.5 F L Pulse Rate 70 Pulse Rate [ Anterior Bilateral Throughout] Respiratory Rate Respiratory Rate [Anterior Bilateral Throughout] Blood Pressure O2 Sat by Pulse Oximetry General appearance: Present: no acute distress, mild distress, well-nourished - EENT Eyes: PERRL, EOM intact ENT: hearing intact, clear oral mucosa Ears: bilateral: normal - Neck Neck: supple, normal ROM - Respiratory Respiratory effort: normal Respiratory: bilateral: CTA, rhonchi, wheezing - Breasts Breasts: normal - Cardiovascular Rhythm: regular Heart Sounds: Present: S1 & S2. Absent: gallop, rub Extremities: pulses intact, No edema, normal color, Full ROM - Gastrointestinal General gastrointestinal: Present: soft, non-tender, non-distended, normal bowel sounds - Genitourinary Male genitourinary: normal - Integumentary Integumentary: clear, warm, dry - Musculoskeletal Musculoskeletal: strength equal bilaterally, generalized weakness - Neurologic Neurologic: other (Patient intubated) - Labs CBC & Chem 7: 11/28/19 12:36 11/28/19 12:36 Labs: Abnormal lab results 11/27/19 11/28/19 11/28/19 Range/Units 22:40 01:45 05:25 WBC (4.5-11.0) K/mm3 MCV (84-94) fl ABG pH 7.086 L 7.257 L (7.320-7.450) POC ABG pCO2 133.5 H 81.8 H 64.2 H (32.0-48.0) mmHg POC ABG pO2 78.4 L 172.6 H 68.1 L (83-108) mmHg Potassium (3.6-5.0) mmol/L Chloride (98-107) mmol/L Carbon Dioxide (22-30) mmol/L BUN (9-20) mg/dL Glucose (75-100) mg/dL POC Glucose (70-105) Calcium (8.4-10.2) mg/dL AST (5-40) units/L ALT (7-56) units/L Total Protein (6.3-8.2) g/dL Albumin (3.9-5) g/dL 11/28/19 11/28/19 11/28/19 Range/Units 12:36 12:36 15:41 WBC 11.3 H (4.5-11.0) K/mm3 MCV 97 H (84-94) fl ABG pH (7.320-7.450) POC ABG pCO2 (32.0-48.0) mmHg POC ABG pO2 (83-108) mmHg Potassium 5.4 H (3.6-5.0) mmol/L Chloride 95.8 L (98-107) mmol/L Carbon Dioxide 38 H (22-30) mmol/L BUN 46 H (9-20) mg/dL Glucose 114 H (75-100) mg/dL POC Glucose 122 H (70-105) Calcium 8.0 L (8.4-10.2) mg/dL AST 169 H (5-40) units/L ALT 284 H (7-56) units/L Total Protein 5.9 L (6.3-8.2) g/dL Albumin 2.9 L (3.9-5) g/dL HEART Score - HEART Score Age: 45-65 Risk factors: 1-2 risk factors Troponin: 1-3x normal limit - Critical Actions Critical Actions: 4-6 pts:12-16.6% risk of adverse cardiac event. Should be admitted
[2019-11-28] MEDS ORDERED: MIDAZOLAM 2 MG/2 ML INJ IV ONE (23:00)
--- NOTE | 2019-11-29 03:05 | XRay Report ---
CHEST 1 VIEW INDICATION: follow up respiratory failure. COMPARISON: One day prior. FINDINGS: Support devices: Unchanged. Heart: Stable. Lungs/Pleura: No consolidation is seen. Interstitial opacities have improved. Small right pleural eff usion persists. IMPRESSION: 1. Improving interstitial opacities with persistent small right effusion. Signer Name: Tony Casey MD Signed: 11/29/2019 3:00 AM Workstation Name: [id number]
[2019-11-29] MEDS: FUROSEMIDE 40 MG/4 ML INJ IV SCH ×2 (05:55→17:21)
[2019-11-29] MEDS: methylPREDNISolone Sod Succinate 125 MG/2 ML INJ IV SCH ×3 (05:55→23:10)
[2019-11-29] MEDS: IPRATROPIUM/ALBUTEROL SULFATE 3 ML AMPUL.NEB IH SCH ×4 (08:55→21:53)
--- NOTE | 2019-11-29 09:33 | Progress Note ---
Assessment and Plan - Patient Problems (1) Acute exacerbation of CHF (congestive heart failure) Current Visit: Yes Status: Acute Qualifiers: Heart failure type: combined systolic and diastolic Qualified Code(s): I50.43 - Acute on chronic combined systolic (congestive) and diastolic (congestive) heart failure (2) Acute respiratory acidosis Current Visit: Yes Status: Acute (3) Hyperkalemia Current Visit: Yes Status: Acute (4) Coronary artery disease Current Visit: Yes Status: Chronic Qualifiers: Coronary Disease-Associated Artery/Lesion type: [place] artery [place] vs. transplanted heart: [place] heart Subjective Date of service: 11/29/19 Principal diagnosis: Acute respiratory failure with hypoxia Interval history: ON THE VENT & SEDATED Objective Vital Signs Temp Pulse Pulse Resp Resp BP Pulse Ox 11/29/19 08:53 58 L 125/78 94 11/29/19 08:00 59 L 26 H 110/66 94 11/29/19 07:30 52 L 26 H 133/75 97 11/29/19 07:00 56 L 26 H 113/68 94 11/29/19 06:30 55 L 26 H 116/65 95 11/29/19 06:00 53 L 26 H 124/71 96 11/29/19 05:30 55 L 26 H 117/62 96 11/29/19 05:00 56 L 26 H 114/64 95 11/29/19 04:30 62 26 H 111/61 94 11/29/19 04:00 98.5 F 66 26 H 116/68 94 11/29/19 03:30 68 26 H 114/67 94 11/29/19 03:00 66 27 H 120/69 95 11/29/19 02:45 68 26 H 115/69 94 11/29/19 02:31 84 15 115/69 94 11/29/19 02:15 69 26 H 129/76 95 11/29/19 02:00 75 26 H 129/76 95 11/29/19 01:45 74 14 122/74 98 11/29/19 01:30 63 26 H 122/74 96 11/29/19 01:15 62 26 H 126/71 95 11/29/19 01:00 62 26 H 126/71 95 11/29/19 00:45 58 L 26 H 120/64 94 11/29/19 00:30 59 L 26 H 128/72 96 11/29/19 00:15 56 L 26 H 110/66 95 11/29/19 00:01 57 L 26 H 120/64 95 11/29/19 00:00 97.9 F 55 L 26 H 120/64 95 11/28/19 23:30 59 L 26 H 110/66 94 11/28/19 23:29 61 157/132 94 11/28/19 23:01 67 16 157/132 98 11/28/19 22:30 64 26 H 116/70 95 11/28/19 22:00 71 26 H 109/88 95 11/28/19 21:30 69 26 H 108/64 91 11/28/19 21:00 72 26 H 117/68 93 11/28/19 20:30 68 26 H 113/67 95 11/28/19 20:04 70 11/28/19 20:00 97.5 F L 70 26 H 115/66 94 11/28/19 19:30 70 26 H 126/73 94 11/28/19 19:20 65 26 H 11/28/19 19:10 65 117/69 93 11/28/19 19:00 68 26 H 117/69 93 11/28/19 18:30 75 26 H 114/66 92 11/28/19 18:00 71 26 H 115/68 95 11/28/19 17:30 72 22 120/68 96 11/28/19 17:00 74 26 H 117/69 94 11/28/19 16:37 77 118/73 92 11/28/19 16:30 80 26 H 118/71 92 11/28/19 16:00 77 26 H 130/73 96 11/28/19 15:31 98 H 12 111/75 95 11/28/19 15:01 102 H 14 109/80 99 11/28/19 14:31 97 H 20 138/78 95 11/28/19 14:00 73 68 26 H 26 H 131/78 98 11/28/19 13:30 67 26 H 119/71 97 11/28/19 13:00 72 26 H 118/71 97 11/28/19 12:30 66 23 118/71 96 11/28/19 12:00 69 26 H 110/65 94 11/28/19 11:43 71 112/46 94 11/28/19 11:30 72 25 H 112/66 95 11/28/19 11:00 69 22 123/73 96 11/28/19 10:30 70 27 H 110/64 94 11/28/19 10:00 71 25 H 106/64 95 - Physical Examination General: Other (UNRESPONSIVE,,,TWITCHING,,VENT) HEENT: Positive: Other (DILATED PUPILS) Neck: Positive: neck supple Cardiac: Positive: Reg Rate and Rhythm, Other (NO R/M/G/ BUT LOUD RONCHI MAY MASK) Lungs: Positive: Rhonchi Neuro: Positive: Other (SEDATED) Abdomen: Positive: Unremarkable, Soft Extremities: Present: edema (NO) - Labs and Meds Cardiac Enzymes 11/28/19 Range/Units 12:36 AST 169 H (5-40) units/L CBC 11/28/19 Range/Units 12:36 WBC 11.3 H (4.5-11.0) K/mm3 RBC 4.32 (3.65-5.03) M/mm3 Hgb 13.6 (11.8-15.2) gm/dl Hct 42.0 (35.5-45.6) % Plt Count 207 (140-440) K/mm3 Comprehensive Metabolic Panel 11/28/19 Range/Units 12:36 Sodium 143 (137-145) mmol/L Potassium 5.4 H (3.6-5.0) mmol/L Chloride 95.8 L (98-107) mmol/L Carbon Dioxide 38 H (22-30) mmol/L BUN 46 H (9-20) mg/dL Creatinine 1.0 (0.8-1.3) mg/dL Glucose 114 H (75-100) mg/dL Calcium 8.0 L (8.4-10.2) mg/dL AST 169 H (5-40) units/L ALT 284 H (7-56) units/L Alkaline Phosphatase 96 (35-129) units/L Total Protein 5.9 L (6.3-8.2) g/dL Albumin 2.9 L (3.9-5) g/dL
[2019-11-29] MEDS: cefTRIAXone/NS 2 GM/100 ML 2 GM/100 ML BAG IV SCH (09:55)
[2019-11-29] MEDS: FAMOTIDINE 20 MG TAB PO SCH ×2 (09:56→23:09)
[2019-11-29] MEDS: VALPROIC ACID 250 MG/5 ML ORAL LIQD FEEDTUBE SCH ×2 (09:56→23:09)
[2019-11-29] MEDS: AZITHROMYCIN 500 MG in SODIUM CHLORIDE 0.9% 250ML 250 ML IV SCH (10:15)
--- NOTE | 2019-11-29 10:59 | Progress Note ---
Assessment and Plan 49 y/o male with acute respiratory failure, hypercapnic respiratory failure, and likely CHF, presevered vs reduced EF 1. Needs Echo, hopeful to be done today. 2. Continue elevated PEEP until FIO2 into the 40's 3. Agree with BID lasix therapy 4. No current indication for bronch at this time 5. Feed patient 6. Needs GI and DVT prophylaxis. 7. Will start to wean steroids, no documented evidence of COPD, but patient smokes per IMS. CCT 31 minutes. Subjective Date of service: 11/29/19 Principal diagnosis: Acute respiratory failure with hypoxia Interval history: ABG continues to improve. CXR is improving. Remains on High peep but I de creased the FiO2 down to 50%. [place] Virus is negative. Objective Vital Signs - 12hr 11/28/19 11/28/19 11/28/19 23:01 23:29 23:30 Temperature Pulse Rate 67 61 59 L Pulse Rate [ From Monitor] Respiratory 16 26 H Rate Blood Pressure 157/132 157/132 110/66 O2 Sat by Pulse 98 94 94 Oximetry 11/29/19 11/29/19 11/29/19 00:00 00:01 00:15 Temperature 97.9 F Pulse Rate 55 L 57 L 56 L Pulse Rate [ From Monitor] Respiratory 26 H 26 H 26 H Rate Blood Pressure 120/64 120/64 110/66 O2 Sat by Pulse 95 95 95 Oximetry 11/29/19 11/29/19 11/29/19 00:30 00:45 01:00 Temperature Pulse Rate 59 L 58 L 62 Pulse Rate [ From Monitor] Respiratory 26 H 26 H 26 H Rate Blood Pressure 128/72 120/64 126/71 O2 Sat by Pulse 96 94 95 Oximetry 11/29/19 11/29/19 11/29/19 01:15 01:30 01:45 Temperature Pulse Rate 62 63 74 Pulse Rate [ From Monitor] Respiratory 26 H 26 H 14 Rate Blood Pressure 126/71 122/74 122/74 O2 Sat by Pulse 95 96 98 Oximetry 11/29/19 11/29/19 11/29/19 02:00 02:15 02:31 Temperature Pulse Rate 75 69 84 Pulse Rate [ From Monitor] Respiratory 26 H 26 H 15 Rate Blood Pressure 129/76 129/76 115/69 O2 Sat by Pulse 95 95 94 Oximetry 11/29/19 11/29/19 11/29/19 02:45 03:00 03:30 Temperature Pulse Rate 68 66 68 Pulse Rate [ From Monitor] Respiratory 26 H 27 H 26 H Rate Blood Pressure 115/69 120/69 114/67 O2 Sat by Pulse 94 95 94 Oximetry 11/29/19 11/29/19 11/29/19 04:00 04:30 05:00 Temperature 98.5 F Pulse Rate 66 62 56 L Pulse Rate [ From Monitor] Respiratory 26 H 26 H 26 H Rate Blood Pressure 116/68 111/61 114/64 O2 Sat by Pulse 94 94 95 Oximetry 11/29/19 11/29/19 11/29/19 05:30 06:00 06:30 Temperature Pulse Rate 55 L 53 L 55 L Pulse Rate [ From Monitor] Respiratory 26 H 26 H 26 H Rate Blood Pressure 117/62 124/71 116/65 O2 Sat by Pulse 96 96 95 Oximetry 11/29/19 11/29/19 11/29/19 07:00 07:30 08:00 Temperature Pulse Rate 56 L 52 L 60 Pulse Rate [ 60 From Monitor] Respiratory 26 H 26 H 26 H Rate Blood Pressure 113/68 133/75 110/66 O2 Sat by Pulse 94 97 93 Oximetry 11/29/19 11/29/19 11/29/19 08:30 08:53 09:00 Temperature Pulse Rate 59 L 58 L 54 L Pulse Rate [ From Monitor] Respiratory 26 H 26 H Rate Blood Pressure 107/61 125/78 110/62 O2 Sat by Pulse 93 94 93 Oximetry 11/29/19 11/29/19 09:30 10:00 Temperature Pulse Rate 66 82 Pulse Rate [ From Monitor] Respiratory 26 H 24 Rate Blood Pressure 113/63 103/54 O2 Sat by Pulse 93 95 Oximetry CBC and BMP: 11/28/19 12:36 11/28/19 12:36 ABG, PT/INR, D-dimer: ABG ABG pH 7.439 (7.320-7.450) 11/29/19 02:42 POC ABG pCO2 57.2 mmHg (32.0-48.0) H 11/29/19 02:42 ABG pCO2 85.1 mm Hg 11/27/19 11:55 POC ABG pO2 80.2 mmHg (83-108) L 11/29/19 02:42 ABG pO2 61.4 mm Hg (80.0-90.0) L 11/27/19 11:55 POC ABG HCO3 37.9 11/29/19 02:42 ABG O2 Saturation 86.3 % (95.0-99.0) L 11/27/19 11:55 PT/INR, D-dimer PT 14.6 Sec. (12.2-14.9) 11/27/19 12:08 INR 1.13 (0.87-1.13) 11/27/19 12:08 Abnormal lab findings: Abnormal Labs 11/27/19 11/27/19 11/27/19 11:55 12:08 12:08 WBC Hct 45.8 H MCV 97 H Seg Neuts % (Manual) 76.0 H Lymphocytes % (Manual) 3.0 L Monocytes % (Manual) 17.0 H Nucleated RBC % 1.0 H Seg Neutrophils # Man 7.9 H Lymphocytes # (Manual) 0.3 L Monocytes # (Manual) 1.8 H ABG pH 7.250 L POC ABG pCO2 POC ABG pO2 ABG pO2 61.4 L ABG HCO3 36.5 H ABG O2 Saturation 86.3 L ABG Base Excess 5.9 H ABG Potassium ABG Chloride ABG Glucose Oxyhemoglobin 81.6 L Potassium 5.5 H Chloride 93.8 L Carbon Dioxide 38 H BUN 75 H Glucose 109 H POC Glucose Calcium 8.3 L Magnesium 3.00 H Ferritin AST 505 H ALT 375 H Lactate Dehydrogenase 408 H C-Reactive Protein 19.50 H NT-Pro-B Natriuret Pep Total Protein Albumin 3.5 L Arterial Blood Glucose Arterial Blood Ionized Calcium Salicylates Acetaminophen 11/27/19 11/27/19 11/27/19 12:08 12:08 12:08 WBC Hct MCV Seg Neuts % (Manual) Lymphocytes % (Manual) Monocytes % (Manual) Nucleated RBC % Seg Neutrophils # Man Lymphocytes # (Manual) Monocytes # (Manual) ABG pH POC ABG pCO2 POC ABG pO2 ABG pO2 ABG HCO3 ABG O2 Saturation ABG Base Excess ABG Potassium ABG Chloride ABG Glucose Oxyhemoglobin Potassium Chloride Carbon Dioxide BUN Glucose POC Glucose Calcium Magnesium Ferritin 818.7 H AST ALT Lactate Dehydrogenase C-Reactive Protein NT-Pro-B Natriuret Pep Total Protein Albumin Arterial Blood Glucose Arterial Blood Ionized Calcium Salicylates < 0.3 L Acetaminophen 5.0 L 11/27/19 11/27/19 11/28/19 12:22 22:40 01:45 WBC Hct MCV Seg Neuts % (Manual) Lymphocytes % (Manual) Monocytes % (Manual) Nucleated RBC % Seg Neutrophils # Man Lymphocytes # (Manual) Monocytes # (Manual) ABG pH 7.086 L 7.257 L POC ABG pCO2 133.5 H 81.8 H POC ABG pO2 78.4 L 172.6 H ABG pO2 ABG HCO3 ABG O2 Saturation ABG Base Excess ABG Potassium ABG Chloride ABG Glucose Oxyhemoglobin Potassium Chloride Carbon Dioxide BUN Glucose POC Glucose Calcium Magnesium Ferritin AST ALT Lactate Dehydrogenase C-Reactive Protein NT-Pro-B Natriuret Pep 63878 H Total Protein Albumin Arterial Blood Glucose Arterial Blood Ionized Calcium Salicylates Acetaminophen 11/28/19 11/28/19 11/28/19 05:25 12:36 12:36 WBC 11.3 H Hct MCV 97 H Seg Neuts % (Manual) Lymphocytes % (Manual) Monocytes % (Manual) Nucleated RBC % Seg Neutrophils # Man Lymphocytes # (Manual) Monocytes # (Manual) ABG pH POC ABG pCO2 64.2 H POC ABG pO2 68.1 L ABG pO2 ABG HCO3 ABG O2 Saturation ABG Base Excess ABG Potassium ABG Chloride ABG Glucose Oxyhemoglobin Potassium 5.4 H Chloride 95.8 L Carbon Dioxide 38 H BUN 46 H Glucose 114 H POC Glucose Calcium 8.0 L Magnesium Ferritin AST 169 H ALT 284 H Lactate Dehydrogenase C-Reactive Protein NT-Pro-B Natriuret Pep Total Protein 5.9 L Albumin 2.9 L Arterial Blood Glucose Arterial Blood Ionized Calcium Salicylates Acetaminophen 11/28/19 11/29/19 15:41 02:42 WBC Hct MCV Seg Neuts % (Manual) Lymphocytes % (Manual) Monocytes % (Manual) Nucleated RBC % Seg Neutrophils # Man Lymphocytes # (Manual) Monocytes # (Manual) ABG pH POC ABG pCO2 57.2 H POC ABG pO2 80.2 L ABG pO2 ABG HCO3 ABG O2 Saturation ABG Base Excess ABG Potassium 4.6 H ABG Chloride 97.0 L ABG Glucose 131 H Oxyhemoglobin Potassium Chloride Carbon Dioxide BUN Glucose POC Glucose 122 H Calcium Magnesium Ferritin AST ALT Lactate Dehydrogenase C-Reactive Protein NT-Pro-B Natriuret Pep Total Protein Albumin Arterial Blood Glucose 131 H Arterial Blood Ionized Calcium 4.1 L Salicylates Acetaminophen
--- NOTE | 2019-11-29 12:29 | Progress Note ---
Subjective Date of service: 11/29/19 Principal diagnosis: Acute respiratory failure with hypoxia Interval history: 11/28 Patient is intubated and sedated No family member is available Vital signs stable Lab results reviewed from yesterday No new lab results today Cardiology and pulmonary consult notes reviewed Assessment and plan Acute combined respiratory failure Pulmonary note reviewed and appreciated Patient remains intubated on FiO2 of 55% and PEEP of 10 Continue management per pulmonary recommendations Acute CHF Cardiology note reviewed Continue IV Lasix Echo ordered Monitor electrolytes Hyperkalemia No labs available from this morning Will order stat BMP Transaminitis Trending down Unclear etiology Possibly congestive hepatopathy from CHF Monitor LFTs Tested negative for COVID 19 virus Objective - Constitutional Vitals: Vital Signs - 12hr 11/29/19 11/29/19 11/29/19 00:30 00:45 01:00 Temperature Pulse Rate 59 L 58 L 62 Pulse Rate [ From Monitor] Respiratory 26 H 26 H 26 H Rate Blood Pressure 128/72 120/64 126/71 O2 Sat by Pulse 96 94 95 Oximetry 11/29/19 11/29/19 11/29/19 01:15 01:30 01:45 Temperature Pulse Rate 62 63 74 Pulse Rate [ From Monitor] Respiratory 26 H 26 H 14 Rate Blood Pressure 126/71 122/74 122/74 O2 Sat by Pulse 95 96 98 Oximetry 11/29/19 11/29/19 11/29/19 02:00 02:15 02:31 Temperature Pulse Rate 75 69 84 Pulse Rate [ From Monitor] Respiratory 26 H 26 H 15 Rate Blood Pressure 129/76 129/76 115/69 O2 Sat by Pulse 95 95 94 Oximetry 11/29/19 11/29/19 11/29/19 02:45 03:00 03:30 Temperature Pulse Rate 68 66 68 Pulse Rate [ From Monitor] Respiratory 26 H 27 H 26 H Rate Blood Pressure 115/69 120/69 114/67 O2 Sat by Pulse 94 95 94 Oximetry 11/29/19 11/29/19 11/29/19 04:00 04:30 05:00 Temperature 98.5 F Pulse Rate 66 62 56 L Pulse Rate [ From Monitor] Respiratory 26 H 26 H 26 H Rate Blood Pressure 116/68 111/61 114/64 O2 Sat by Pulse 94 94 95 Oximetry 11/29/19 11/29/19 11/29/19 05:30 06:00 06:30 Temperature Pulse Rate 55 L 53 L 55 L Pulse Rate [ From Monitor] Respiratory 26 H 26 H 26 H Rate Blood Pressure 117/62 124/71 116/65 O2 Sat by Pulse 96 96 95 Oximetry 11/29/19 11/29/19 11/29/19 07:00 07:30 08:00 Temperature Pulse Rate 56 L 52 L 60 Pulse Rate [ 60 From Monitor] Respiratory 26 H 26 H 26 H Rate Blood Pressure 113/68 133/75 110/66 O2 Sat by Pulse 94 97 93 Oximetry 11/29/19 11/29/19 11/29/19 08:30 08:53 09:00 Temperature Pulse Rate 59 L 58 L 54 L Pulse Rate [ From Monitor] Respiratory 26 H 26 H Rate Blood Pressure 107/61 125/78 110/62 O2 Sat by Pulse 93 94 93 Oximetry 11/29/19 11/29/19 11/29/19 09:30 10:00 10:30 Temperature Pulse Rate 66 82 70 Pulse Rate [ From Monitor] Respiratory 26 H 24 26 H Rate Blood Pressure 113/63 103/54 104/59 O2 Sat by Pulse 93 95 93 Oximetry 11/29/19 11/29/19 11/29/19 11:00 11:30 12:07 Temperature Pulse Rate 65 61 61 Pulse Rate [ From Monitor] Respiratory 26 H 26 H Rate Blood Pressure 108/61 108/63 115/64 O2 Sat by Pulse 95 94 92 Oximetry General appearance: Present: no acute distress, other (Sedated secondary to intubation) - EENT Eyes: PERRL - Neck Neck: supple, no masses or JVD - Respiratory Respiratory effort: normal Respiratory: bilateral: CTA - Cardiovascular Rhythm: regular Heart Sounds: Present: S1 & S2 Extremities: No edema - Gastrointestinal General gastrointestinal: Present: soft, non-tender - Genitourinary Male genitourinary: deferred - Integumentary Integumentary: clear - Neurologic Neurologic: other (Patient is sedated) - Labs CBC & Chem 7: 11/28/19 12:36 11/28/19 12:36 Labs: Abnormal lab results 11/28/19 11/28/19 11/28/19 Range/Units 12:36 12:36 15:41 WBC 11.3 H (4.5-11.0) K/mm3 MCV 97 H (84-94) fl POC ABG pCO2 (32.0-48.0) mmHg POC ABG pO2 (83-108) mmHg ABG Potassium (3.40-4.50) mmol/L ABG Chloride (98-107) mmol/L ABG Glucose (65-95) mg/dL Potassium 5.4 H (3.6-5.0) mmol/L Chloride 95.8 L (98-107) mmol/L Carbon Dioxide 38 H (22-30) mmol/L BUN 46 H (9-20) mg/dL Glucose 114 H (75-100) mg/dL POC Glucose 122 H (70-105) Calcium 8.0 L (8.4-10.2) mg/dL AST 169 H (5-40) units/L ALT 284 H (7-56) units/L Total Protein 5.9 L (6.3-8.2) g/dL Albumin 2.9 L (3.9-5) g/dL Arterial Blood Glucose (65-95) mg/dL Arterial Blood Ionized Calcium (4.6-5.3) mg/dL 11/29/19 11/29/19 Range/Units 02:42 12:02 WBC (4.5-11.0) K/mm3 MCV (84-94) fl POC ABG pCO2 57.2 H (32.0-48.0) mmHg POC ABG pO2 80.2 L (83-108) mmHg ABG Potassium 4.6 H (3.40-4.50) mmol/L ABG Chloride 97.0 L (98-107) mmol/L ABG Glucose 131 H (65-95) mg/dL Potassium (3.6-5.0) mmol/L Chloride (98-107) mmol/L Carbon Dioxide (22-30) mmol/L BUN (9-20) mg/dL Glucose (75-100) mg/dL POC Glucose 123 H (70-105) Calcium (8.4-10.2) mg/dL AST (5-40) units/L ALT (7-56) units/L Total Protein (6.3-8.2) g/dL Albumin (3.9-5) g/dL Arterial Blood Glucose 131 H (65-95) mg/dL Arterial Blood Ionized Calcium 4.1 L (4.6-5.3) mg/dL HEART Score - HEART Score Age: 45-65 Risk factors: 1-2 risk factors Troponin: 1-3x normal limit - Critical Actions Critical Actions: 4-6 pts:12-16.6% risk of adverse cardiac event. Should be admitted
[2019-11-29] MEDS ORDERED: LIPASE 10,500/PROTEASE 25,000/AMYLASE 43,750 (UNITS) DR CAP FEEDTUBE PRN (12:44)
[2019-11-29] MEDS ORDERED: SIMPLE SYRUP 15 ML FEEDTUBE PRN ×2 (12:44)
[2019-11-29] MEDS ORDERED: SODIUM BICARBONATE 325 MG TAB FEEDTUBE PRN (12:44)
[2019-11-29 15:33] LABS: Calcium 7.9 mg/dL (8.4-10.2)
--- NOTE | 2019-11-29 15:55 | Progress Note ---
Assessment and Plan Cultures: Blood culture pending SARS CoV2 PCR negative Assessment: 49 years old female with morbid obesity, psychiatric disorder, admitted on 11/27/2019 due to a week history of worsening shortness of breath, cough, generalized weakness, malaise: #Severe sepsis: Present on admission with tachycardia, severe hypoxia likely due to bilateral pneumonia. #Suspect Critical COVID pneumonia: SARS-CoV-2 PCR negative initially. Inflammatory markers, ferritin, CRP and LDH daily elevated. D-dimer pending. Noted elevated BNP #Acute hypoxemic respiratory failure: Initial O2 sat 69%, patient was on BiPAP, now intubated. Likely secondary to COVID-19 pneumonia. However should rule out community-acquired pneumonia given mild elevated procalcitonin and CHF exacerbation given elevated BNP 16,236. #Elevated LFTs: Elevated 10 times baseline. From COVID #Morbid obesity: Associated with poor cell counts. Recommendations: -Obtain SARS-CoV-2 PCR retest -Obtain SARS CoV-2 IgG if negative, then patient is a candidate for COVID convalescent plasma -Start Dexamethasone 6 mg IV/PO daily for 10 days -Patient is not a candidate for Remdesivir due to elevated LFTs to 10 times normal value -Monitor inflammatory markers - ferritin, Ddimer, CRP, LDH. D-dimer is pending -Continue ceftriaxone and azithromycin -Continue anticoagulation per System Protocol -Prone positioning as possible -Agree with transthoracic echocardiogram High mortality All laboratory, cultures and imaging were reviewed. Will follow Rocky Cosby MD [facility] ([facility] M: [phone] O: [phone] F: [phone] Subjective Date of service: 11/29/19 Principal diagnosis: Acute respiratory failure with hypoxia Interval history: Afebrile, mildly elevated white count at 11.3 currently on mechanical ventilation. Objective - Exam Narrative Exam: Physical exam deferred due to PPE conservation strategy. Please refer to primary team's note. - Constitutional Vitals: Vital Signs Temp Pulse Resp BP Pulse Ox 98.5 F 78 26 H 114/68 95 11/29/19 04:00 11/29/19 15:00 11/29/19 15:00 11/29/19 15:00 11/29/19 15:00 Temperature -Last 24 Hours Temperature 98.5 F Temperature 97.9 F Temperature 97.5 F - Labs CBC & Chem 7: 11/28/19 12:36 11/29/19 14:48 Labs: Abnormal lab results 11/28/19 11/29/19 11/29/19 Range/Units 15:41 02:42 12:02 POC ABG pCO2 57.2 H (32.0-48.0) mmHg POC ABG pO2 80.2 L (83-108) mmHg ABG Potassium 4.6 H (3.40-4.50) mmol/L ABG Chloride 97.0 L (98-107) mmol/L ABG Glucose 131 H (65-95) mg/dL Sodium (137-145) mmol/L Chloride (98-107) mmol/L Carbon Dioxide (22-30) mmol/L BUN (9-20) mg/dL Glucose (75-100) mg/dL POC Glucose 122 H 123 H (70-105) Calcium (8.4-10.2) mg/dL Arterial Blood Glucose 131 H (65-95) mg/dL Arterial Blood Ionized Calcium 4.1 L (4.6-5.3) mg/dL 11/29/19 Range/Units 14:48 POC ABG pCO2 (32.0-48.0) mmHg POC ABG pO2 (83-108) mmHg ABG Potassium (3.40-4.50) mmol/L ABG Chloride (98-107) mmol/L ABG Glucose (65-95) mg/dL Sodium 148 H (137-145) mmol/L Chloride 97.4 L (98-107) mmol/L Carbon Dioxide 38 H (22-30) mmol/L BUN 51 H (9-20) mg/dL Glucose 147 H (75-100) mg/dL POC Glucose (70-105) Calcium 7.9 L (8.4-10.2) mg/dL Arterial Blood Glucose (65-95) mg/dL Arterial Blood Ionized Calcium (4.6-5.3) mg/dL
[2019-11-29] MEDS: HEPARIN 5,000 UNIT/1 ML VIAL SUB-Q SCH (23:10)
[2019-11-30 05:32] LABS: Alanine Aminotransferase 219 units/L (7-56); BUN/Creatinine Ratio 47; Blood Urea Nitrogen 52 mg/dL (9-20); Calcium 8.2 mg/dL (8.4-10.2); Hemolysis Index 36
[2019-11-30] MEDS: FUROSEMIDE 40 MG/4 ML INJ IV SCH ×2 (06:30→18:33)
[2019-11-30] MEDS: methylPREDNISolone Sod Succinate 125 MG/2 ML INJ IV SCH ×3 (06:30→22:42)
[2019-11-30] MEDS: HEPARIN 5,000 UNIT/1 ML VIAL SUB-Q SCH ×3 (06:30→22:42)
[2019-11-30] MEDS: IPRATROPIUM/ALBUTEROL SULFATE 3 ML AMPUL.NEB IH SCH ×4 (07:34→22:04)
--- NOTE | 2019-11-30 08:18 | Progress Note ---
Assessment and Plan Assessment and plan: 49-year-old male with history of psychiatric problems on valproic acid comes in for cough productive of thick mucoid sputum, weakness, malaise and fatigue. No fever or chills. No vomiting or diarrhea. No sick contacts. No exposure to coronavirus. Patient very short of breath and very low oxygen saturations-at the time of admission. His oxygen saturation was 67% on room air at the time of admission improved to 92% with on BiPAP. History of coronary artery disease but no CHF 11/28 Patient is intubated and sedated No family member is available Vital signs stable Lab results reviewed from yesterday No new lab results today Cardiology and pulmonary consult notes reviewed 11/29: Remains intubated, continue aggressive management, Negative COVID19 Negative. Assessment and plan Acute combined respiratory failure with hypoxia Pulmonary note reviewed and appreciated Patient remains intubated on FiO2 of 55% and PEEP of 10 Continue management per pulmonary recommendations Acute CHF WITH PRESERVED EF Cardiology note reviewed Continue IV Lasix Echo ordered Monitor electrolytes Hyperkalemia No labs available from this morning Will order stat BMP Transaminitis Trending down Unclear etiology Possibly congestive hepatopathy from CHF Monitor LFTs Tested negative for COVID 19 virus The high probability of a clinically significant, sudden or life threatening deterioration of the [pulmonary] system(s) required my full and direct attention, intervention and personal management. The aggregate critical care time was [35] minutes. This time is in addition to time spent performing repor dipak procedures but includes the following: [x] Data Review and interpretation [x] Patient assessment and monitoring of vital signs [x] Documentation [x] Medication orders and management History Interval history: Patient seen and examined remains on the vent. Hospitalist Physical - Physical exam Narrative exam: General appearance: Present: no acute distress, other (Sedated secondary to intubation) - EENT Eyes: PERRL - Neck Neck: supple, no masses or JVD - Respiratory Respiratory effort: normal Respiratory: bilateral: CTA - Cardiovascular Rhythm: regular Heart Sounds: Present: S1 & S2 Extremities: No edema - Gastrointestinal General gastrointestinal: Present: soft, non-tender - Genitourinary Male genitourinary: deferred - Integumentary Integumentary: clear - Neurologic Neurologic: other (Patient is sedated) - Constitutional Vitals: Temp Pulse Resp BP Pulse Ox 97.9 F 59 L 26 H 115/72 97 11/30/19 03:38 11/30/19 07:35 11/30/19 07:35 11/30/19 07:28 11/30/19 07:28 General appearance: Present: no acute distress, other (Sedated secondary to intubation) HEART Score - HEART Score Age: 45-65 Risk factors: 1-2 risk factors Troponin: 1-3x normal limit - Critical Actions Critical Actions: 4-6 pts:12-16.6% risk of adverse cardiac event. Should be admitted Results - Labs CBC & Chem 7: 11/28/19 12:36 11/30/19 04:31 Labs: Laboratory Last Values WBC 11.3 K/mm3 (4.5-11.0) H 11/28/19 12:36 RBC 4.32 M/mm3 (3.65-5.03) 11/28/19 12:36 Hgb 13.6 gm/dl (11.8-15.2) 11/28/19 12:36 Hct 42.0 % (35.5-45.6) 11/28/19 12:36 MCV 97 fl (84-94) H 11/28/19 12:36 MCH 31 pg (28-32) 11/28/19 12:36 MCHC 32 % (32-34) 11/28/19 12:36 RDW 14.7 % (13.2-15.2) 11/28/19 12:36 Plt Count 207 K/mm3 (140-440) 11/28/19 12:36 Add Manual Diff Complete 11/27/19 12:08 Total Counted 100 11/27/19 12:08 Seg Neuts % (Manual) 76.0 % (40.0-70.0) H 11/27/19 12:08 Band Neutrophils % 3.0 % 11/27/19 12:08 Lymphocytes % (Manual) 3.0 % (13.4-35.0) L 11/27/19 12:08 Reactive Lymphs % (Man) 0 % 11/27/19 12:08 Monocytes % (Manual) 17.0 % (0.0-7.3) H 11/27/19 12:08 Eosinophils % (Manual) 0 % (0.0-4.3) 11/27/19 12:08 Basophils % (Manual) 0 % (0.0-1.8) 11/27/19 12:08 Metamyelocytes % 1.0 % 11/27/19 12:08 Myelocytes % 0 % 11/27/19 12:08 Promyelocytes % 0 % 11/27/19 12:08 Blast Cells % 0 % 11/27/19 12:08 Nucleated RBC % 1.0 % (0.0-0.9) H 11/27/19 12:08 Seg Neutrophils # Man 7.9 K/mm3 (1.8-7.7) H 11/27/19 12:08 Band Neutrophils # 0.3 K/mm3 11/27/19 12:08 Lymphocytes # (Manual) 0.3 K/mm3 (1.2-5.4) L 11/27/19 12:08 Abs React Lymphs (Man) 0.0 K/mm3 11/27/19 12:08 Monocytes # (Manual) 1.8 K/mm3 (0.0-0.8) H 11/27/19 12:08 Eosinophils # (Manual) 0.0 K/mm3 (0.0-0.4) 11/27/19 12:08 Basophils # (Manual) 0.0 K/mm3 (0.0-0.1) 11/27/19 12:08 Metamyelocytes # 0.1 K/mm3 11/27/19 12:08 Myelocytes # 0.0 K/mm3 11/27/19 12:08 Promyelocytes # 0.0 K/mm3 11/27/19 12:08 Blast Cells # 0.0 K/mm3 11/27/19 12:08 WBC Morphology Not Reportable 11/27/19 12:08 Hypersegmented Neuts Not Reportable 11/27/19 12:08 Hyposegmented Neuts Not Reportable 11/27/19 12:08 Hypogranular Neuts Not Reportable 11/27/19 12:08 Smudge Cells Not Reportable 11/27/19 12:08 Toxic Granulation Not Reportable 11/27/19 12:08 Toxic Vacuolation Not Reportable 11/27/19 12:08 Dohle Bodies Not Reportable 11/27/19 12:08 Pelger-Huet Anomaly Not Reportable 11/27/19 12:08 Malena Rods Not Reportable 11/27/19 12:08 Platelet Estimate Consistent w auto 11/27/19 12:08 Clumped Platelets Not Reportable 11/27/19 12:08 Plt Clumps, EDTA Not Reportable 11/27/19 12:08 Large Platelets Not Reportable 11/27/19 12:08 Giant Platelets Not Reportable 11/27/19 12:08 Platelet Satelliting Not Reportable 11/27/19 12:08 Plt Morphology Comment Not Reportable 11/27/19 12:08 RBC Morphology Normal 11/27/19 12:08 Dimorphic RBCs Not Reportable 11/27/19 12:08 Polychromasia Not Reportable 11/27/19 12:08 Hypochromasia Not Reportable 11/27/19 12:08 Poikilocytosis Not Reportable 11/27/19 12:08 Anisocytosis Not Reportable 11/27/19 12:08 Microcytosis Not Reportable 11/27/19 12:08 Macrocytosis Not Reportable 11/27/19 12:08 Spherocytes Not Reportable 11/27/19 12:08 Pappenheimer Bodies Not Reportable 11/27/19 12:08 Sickle Cells Not Reportable 11/27/19 12:08 Target Cells Not Reportable 11/27/19 12:08 Tear Drop Cells Not Reportable 11/27/19 12:08 Ovalocytes Not Reportable 11/27/19 12:08 Helmet Cells Not Reportable 11/27/19 12:08 [place] Bodies Not Reportable 11/27/19 12:08 [place] Rings Not Reportable 11/27/19 12:08 Dain Cells Not Reportable 11/27/19 12:08 Bite Cells Not Reportable 11/27/19 12:08 Crenated Cell Not Reportable 11/27/19 12:08 Elliptocytes Not Reportable 11/27/19 12:08 Acanthocytes (Spur) Not Reportable 11/27/19 12:08 Rouleaux Not Reportable 11/27/19 12:08 Hemoglobin C Crystals Not Reportable 11/27/19 12:08 Schistocytes Not Reportable 11/27/19 12:08 Malaria parasites Not Reportable 11/27/19 12:08 Rcok Bodies Not Reportable 11/27/19 12:08 Hem Pathologist Commnt No 11/27/19 12:08 PT 14.6 Sec. (12.2-14.9) 11/27/19 12:08 INR 1.13 (0.87-1.13) 11/27/19 12:08 ABG pH 7.421 (7.320-7.450) 11/30/19 04:40 POC ABG pCO2 61.7 mmHg (32.0-48.0) H 11/30/19 04:40 ABG pCO2 85.1 mm Hg 11/27/19 11:55 POC ABG pO2 86.6 mmHg (83-108) 11/30/19 04:40 ABG pO2 61.4 mm Hg (80.0-90.0) L 11/27/19 11:55 POC ABG HCO3 39.2 11/30/19 04:40 ABG HCO3 36.5 mmol/L (20.0-26.0) H 11/27/19 11:55 ABG O2 Saturation 86.3 % (95.0-99.0) L 11/27/19 11:55 ABG O2 Content 94.8 11/30/19 04:40 POC ABG Base Excess 11.8 11/30/19 04:40 ABG Base Excess 5.9 mmol/L (-2.0-3.0) H 11/27/19 11:55 ABG Hemoglobin 15.3 (12.0-17.5) 11/30/19 04:40 ABG Carboxyhemoglobin 4.8 % (0.0-5.0) 11/27/19 11:55 ABG Methemoglobin 0.6 % (0.0-1.5) 11/27/19 11:55 ABG Sodium 142.0 mmol/L (136.0-145.0) 11/30/19 04:40 ABG Potassium 4.6 mmol/L (3.40-4.50) H 11/30/19 04:40 ABG Chloride 97.0 mmol/L (98-107) L 11/30/19 04:40 ABG Glucose 167 mg/dL (65-95) H 11/30/19 04:40 Oxyhemoglobin 81.6 % (95.0-99.0) L 11/27/19 11:55 FiO2 50.0 11/30/19 04:40 Sodium 145 mmol/L (137-145) 11/30/19 04:31 Potassium 4.8 mmol/L (3.6-5.0) 11/30/19 04:31 Chloride 96.6 mmol/L (98-107) L 11/30/19 04:31 Carbon Dioxide 37 mmol/L (22-30) H 11/30/19 04:31 Anion Gap 16 mmol/L 11/30/19 04:31 BUN 52 mg/dL (9-20) H 11/30/19 04:31 Creatinine 1.1 mg/dL (0.8-1.3) 11/30/19 04:31 Estimated GFR > 60 ml/min 11/30/19 04:31 BUN/Creatinine Ratio 47 % 11/30/19 04:31 Glucose 173 mg/dL (75-100) H 11/30/19 04:31 POC Glucose 127 (70-105) H 11/29/19 17:23 Hemoglobin A1c 4.7 % (4-6) 11/28/19 04:15 Lactic Acid 1.30 mmol/L (0.7-2.0) 11/27/19 12:08 Calcium 8.2 mg/dL (8.4-10.2) L 11/30/19 04:31 Magnesium 3.00 mg/dL (1.7-2.3) H 11/27/19 12:08 Ferritin 818.7 ng/mL (30.0-300.0) H 11/27/19 12:08 Total Bilirubin 0.30 mg/dL (0.1-1.2) 11/30/19 04:31 AST 86 units/L (5-40) H 11/30/19 04:31 ALT 219 units/L (7-56) H 11/30/19 04:31 Alkaline Phosphatase 90 units/L (35-129) 11/30/19 04:31 Lactate Dehydrogenase 408 units/L (91-180) H 11/27/19 12:08 Total Creatine Kinase 83 units/L (55-170) 11/27/19 12:08 C-Reactive Protein 19.50 mg/dL (0.00-1.30) H 11/27/19 12:08 NT-Pro-B Natriuret Pep 95641 pg/mL (0-450) H 11/27/19 12:22 Total Protein 6.1 g/dL (6.3-8.2) L 11/30/19 04:31 Albumin 3.0 g/dL (3.9-5) L 11/30/19 04:31 Albumin/Globulin Ratio 1.0 % 11/30/19 04:31 Procalcitonin 0.56 ng/mL (<0.15) 11/27/19 12:08 Arterial Blood Glucose 167 mg/dL (65-95) H 11/30/19 04:40 Arterial Blood Ionized Calcium 4.4 mg/dL (4.6-5.3) L 11/30/19 04:40 Salicylates < 0.3 mg/dL (2.8-20.0) L 11/27/19 12:08 Acetaminophen 5.0 ug/mL (10.0-30.0) L 11/27/19 12:08 Valproic Acid 64.7 ug/mL (50-100) 11/27/19 12:08 Coronavirus (PCR) Negative (Negative) 11/28/19 10:00 Microbiology: Microbiology 11/27/19 Unknown Tracheal Aspirate Sputum Culture - Preliminary 11/27/19 12:08 Peripheral/Venous Blood Culture - Preliminary NO GROWTH AFTER 48 HOURS 11/27/19 12:08 Peripheral/Venous Blood Culture - Preliminary NO GROWTH AFTER 48 HOURS Cohen/IV: Voiding Method Indwelling Catheter IV Catheter Type [Right Wrist] INT / Saline Lock IV Catheter Type [Left INT / Saline Lock Antecubital] IV Catheter Type [Right Hand] INT / Saline Lock Active Medications - Current Medications Current Medications: Generic Name Dose Route Start Last Admin Trade Name Freq PRN Reason Stop Dose Admin Acetaminophen 650 mg 11/27/19 19:22 11/29/19 23:20 Tylenol PO 650 mg Q4H PRN Administration Pain MILD(1-3)/Fever >100.5/DIXON Albuterol/Ipratropium 1 ampul 11/27/19 19:24 11/28/19 02:00 Duoneb *Not For Prn Use* IH 1 ampul Q3H PRN Administration Wheezing Albuterol/Ipratropium 1 ampul 11/27/19 20:00 11/30/19 07:34 Duoneb *Not For Prn Use* IH 1 ampul QIDRT AYAKA Administration Lipase/Protease/Amylase 1 each 11/29/19 12:44 [place] 10,500 Unit FEEDTUBE PRN PRN For Clogged Feeding Tube Famotidine 20 mg 11/29/19 10:00 11/29/19 23:09 Pepcid PO 20 mg BID AYAKA Administration Fentanyl 50 mcg 11/28/19 00:06 11/28/19 22:40 Sublimaze IV 50 mcg Q2H PRN Administration Sedation Furosemide 40 mg 11/28/19 06:00 11/30/19 06:30 Lasix IV 40 mg 0600,1800 AYAKA Administration Heparin Sodium (Porcine) 5,000 unit 11/29/19 22:00 11/30/19 06:30 Heparin SUB-Q 5,000 unit Q8HR AYAKA Administration Hydromorphone HCl 0.5 mg 11/27/19 19:22 11/27/19 20:14 Dilaudid IV 0.5 mg Q3H PRN Administration Pain , Severe (7-10) Ceftriaxone Sodium 2 gm in 100 mls @ 200 mls/hr 11/27/19 20:00 11/29/19 09:55 Rocephin/Ns 2 Gm/100 Ml IV 200 mls/hr Q24HR AYAKA Administration Protocol Azithromycin 500 mg/ Sodium 250 mls @ 250 mls/hr 11/28/19 10:00 11/29/19 10:15 Chloride IV 250 mls/hr Q24HR AYAKA Administration Protocol Propofol 1,000 mg in 100 mls @ 4.627 mls/hr 11/28/19 01:00 11/30/19 06:51 Diprivan 10 Mg/Ml IV 30 mcg/kg/min TITR AYAKA 27.76 mls/hr Administration Protocol 5 MCG/KG/MIN Lorazepam 0.5 mg 11/27/19 20:19 11/27/19 20:21 Ativan IV 0.5 mg Q3H PRN Administration Agitation Methylprednisolone Sodium Succinate 40 mg 11/29/19 12:00 11/30/19 06:30 Solu-Medrol IV 40 mg Q8HR AYAKA Administration Metoclopramide HCl 10 mg 11/27/19 19:22 Reglan IV Q6H PRN Nausea And Vomiting Morphine Sulfate 2 mg 11/27/19 19:22 Morphine IV Q4H PRN Pain, Moderate (4-6) Olanzapine 20 mg 11/27/19 22:00 11/29/19 23:10 Zyprexa PO 20 mg HS AYAKA Administration Ondansetron HCl 4 mg 11/27/19 19:22 Zofran IV Q3H PRN Nausea And Vomiting Simple Syrup 15 ml 11/29/19 12:44 Simple Syrup FEEDTUBE PRN PRN Hypoglycemia Simple Syrup 30 ml 11/29/19 12:44 Simple Syrup FEEDTUBE PRN PRN Hypoglycemia Sodium Bicarbonate 325 mg 11/29/19 12:44 Sodium Bicarbonate FEEDTUBE PRN PRN For Clogged Feeding Tube Sodium Chloride 10 ml 11/27/19 22:00 11/29/19 23:10 Sodium Chloride Flush Syringe 10 Ml IV 10 ml BID AYAKA Administration Sodium Chloride 10 ml 11/27/19 19:22 11/28/19 13:10 Sodium Chloride Flush Syringe 10 Ml IV 10 ml PRN PRN Administration LINE FLUSH Valproic Acid 250 mg 11/29/19 10:00 11/29/19 23:09 Depakene Liq FEEDTUBE 250 mg BID AYAKA Administration Nutrition/Malnutrition Assess - Dietary Evaluation Nutrition/Malnutrition Findings: Nutrition Notes Start: 11/29/19 12:28 Freq: Status: Active Protocol: Document 11/29/19 12:28 (Rec: 11/29/19 12:44 [id number]) Nutrition Notes Need for Assessment generated from: MD Order Initial or Follow up Assessment Current Diagnosis Coronary Artery Disease, Hypertension,Heart Failure Other Pertinent Diagnosis Acute respiratory failure Current Diet NPO Labs/Tests K 5.4 BUN 46 Pertinent Medications Propofol at 27.76 ml/hr (732 kcal) Lasix Height 6 ft 1 in Weight 154.221 kg [place] Body Weight (kg) 83.63 BMI 44.9 Weight Status Morbidly Obese Subjective/Other Information verbal ordrer for TF. Pt on vent. Burn Absent Trauma Absent Current % PO Negligible Minimum of two criteria No physical signs of malnutrition #1 Nutrition Diagnosis Inadequate oral intake Etiology acute respirtory failure As Evidenced by Signs and Symptoms pt on vent Is patient on ventilator? Yes Is Patient Ambulatory and/or Out of Bed No REE-([facility]-confined to bed) 2962.056 Kcal/Kg value to use for calculation 13 Approximate Energy Requirements Using 2005 kcal/Kg Calculation Used for Recommendations Kcal/kg Additional Notes Pro: 210 g (<2.5 g/kg IBW) Fluid: 1 ml/kcal Nutrition Intervention Change Diet Order: TF Nutrition Support: Nepro 1.8 at 40 ml/hr Flush 200 ml q4h Kcal 1,728 Protein (gm) 78 Goal #1 Start and tolerate TF Goal #2 Meet at least 75% of protein and energy needs via TF Anticipated Discharge Needs: Unable to determine at this time Follow-Up By: 12/01/19 Additional Comments FU for TF tolerance, K labs, Propofol
--- NOTE | 2019-11-30 08:46 | XRay Report ---
CHEST 1 VIEW 11/30/2019 7:35 AM INDICATION / CLINICAL INFORMATION: follow up respiratory failure. COMPARISON: 11/29/2019. FINDINGS: SUPPORT DEVICES: Unchanged. HEART / MEDIASTINUM: Stable. LUNGS / PLEURA: Bilateral interstitial opacities are stable. No pneumothorax. ADDITIONAL FINDINGS: No significant additional findings. IMPRESSION: 1. No significant change from yesterday. Signer Name: Jose Gerber MD Signed: 11/30/2019 8:41 AM Workstation Name: [id number]
[2019-11-30] MEDS: FAMOTIDINE 20 MG TAB PO SCH ×2 (09:04→22:41)
[2019-11-30] MEDS: cefTRIAXone/NS 2 GM/100 ML 2 GM/100 ML BAG IV SCH (09:04)
[2019-11-30] MEDS: VALPROIC ACID 250 MG/5 ML ORAL LIQD FEEDTUBE SCH ×2 (09:04→22:42)
[2019-11-30] MEDS: AZITHROMYCIN 500 MG in SODIUM CHLORIDE 0.9% 250ML 250 ML IV SCH (09:08)
--- NOTE | 2019-11-30 11:53 | Progress Note ---
Assessment and Plan 49 y/o male with acute respiratory failure, hypercapnic respiratory failure, and likely CHF, presevered vs reduced EF 1. Echo shows HFpEF diastolic dysfunction. Needs continue diuresis. 2. Continue elevated PEEP until FIO2 into the 40's 3. Agree with BID lasix therapy 4. No current indication for bronch at this time 5. Feed patient, tolerating 6. Needs GI and DVT prophylaxis. 7. Will start to wean steroids, per sister has COPD so will treat as COPD exacerbation. CCT 31 minutes. Subjective Date of service: 11/30/19 Principal diagnosis: Acute respiratory failure with hypoxia Interval history: Down to 50%. On Vent. I dropped to 45. Remains sedated on Diprovan but per nursing on holiday will wake all the way. Per nursing spoke with sister who states patient has CHF Objective Vital Signs - 12hr 11/30/19 11/30/19 11/30/19 00:00 00:22 00:23 Temperature Pulse Rate 71 95 H 70 Pulse Rate [ Anterior Bilateral Throughout] Pulse Rate [ From Monitor] Respiratory 23 Rate Respiratory Rate [Anterior Bilateral Throughout] Blood Pressure 101/59 107/63 O2 Sat by Pulse 95 93 Oximetry 11/30/19 11/30/19 11/30/19 00:24 00:30 01:00 Temperature Pulse Rate 66 65 Pulse Rate [ Anterior Bilateral Throughout] Pulse Rate [ 70 From Monitor] Respiratory 24 16 26 H Rate Respiratory Rate [Anterior Bilateral Throughout] Blood Pressure 105/61 112/69 O2 Sat by Pulse 95 96 97 Oximetry 11/30/19 11/30/19 11/30/19 01:30 02:00 02:30 Temperature Pulse Rate 59 L 61 64 Pulse Rate [ Anterior Bilateral Throughout] Pulse Rate [ From Monitor] Respiratory 23 19 26 H Rate Respiratory Rate [Anterior Bilateral Throughout] Blood Pressure 124/75 126/77 118/70 O2 Sat by Pulse 98 97 95 Oximetry 11/30/19 11/30/19 11/30/19 03:00 03:30 03:38 Temperature 97.9 F Pulse Rate 65 66 Pulse Rate [ Anterior Bilateral Throughout] Pulse Rate [ From Monitor] Respiratory 21 26 H Rate Respiratory Rate [Anterior Bilateral Throughout] Blood Pressure 119/69 107/62 O2 Sat by Pulse 96 95 Oximetry 11/30/19 11/30/19 11/30/19 04:00 04:24 04:27 Temperature Pulse Rate 57 L 61 63 Pulse Rate [ Anterior Bilateral Throughout] Pulse Rate [ 61 From Monitor] Respiratory 26 H 24 Rate Respiratory Rate [Anterior Bilateral Throughout] Blood Pressure 111/70 123/74 O2 Sat by Pulse 97 95 98 Oximetry 11/30/19 11/30/19 11/30/19 04:30 05:00 05:30 Temperature Pulse Rate 63 64 60 Pulse Rate [ Anterior Bilateral Throughout] Pulse Rate [ From Monitor] Respiratory 26 H 26 H 26 H Rate Respiratory Rate [Anterior Bilateral Throughout] Blood Pressure 115/70 120/70 120/73 O2 Sat by Pulse 98 98 97 Oximetry 11/30/19 11/30/19 11/30/19 06:00 06:30 07:00 Temperature Pulse Rate 55 L 54 L 50 L Pulse Rate [ Anterior Bilateral Throughout] Pulse Rate [ From Monitor] Respiratory 26 H 26 H 26 H Rate Respiratory Rate [Anterior Bilateral Throughout] Blood Pressure 114/69 118/70 126/76 O2 Sat by Pulse 97 97 98 Oximetry 11/30/19 11/30/19 11/30/19 07:28 07:30 07:35 Temperature Pulse Rate 61 60 Pulse Rate [ 59 L Anterior Bilateral Throughout] Pulse Rate [ From Monitor] Respiratory 26 H Rate Respiratory 26 H Rate [Anterior Bilateral Throughout] Blood Pressure 115/72 115/72 O2 Sat by Pulse 97 97 Oximetry 11/30/19 11/30/19 11/30/19 08:00 08:30 09:00 Temperature 98.4 F Pulse Rate 65 69 65 Pulse Rate [ Anterior Bilateral Throughout] Pulse Rate [ 69 From Monitor] Respiratory 22 26 H 16 Rate Respiratory Rate [Anterior Bilateral Throughout] Blood Pressure 105/62 110/63 109/64 O2 Sat by Pulse 95 95 96 Oximetry 11/30/19 11/30/19 11/30/19 09:30 10:00 10:30 Temperature Pulse Rate 88 79 68 Pulse Rate [ Anterior Bilateral Throughout] Pulse Rate [ From Monitor] Respiratory 27 H 17 22 Rate Respiratory Rate [Anterior Bilateral Throughout] Blood Pressure 104/63 126/77 119/73 O2 Sat by Pulse 95 97 96 Oximetry CBC and BMP: 11/28/19 12:36 11/30/19 04:31 ABG, PT/INR, D-dimer: ABG ABG pH 7.421 (7.320-7.450) 11/30/19 04:40 POC ABG pCO2 61.7 mmHg (32.0-48.0) H 10/13/20 04:40 ABG pCO2 85.1 mm Hg 11/27/19 11:55 POC ABG pO2 86.6 mmHg (83-108) 11/30/19 04:40 ABG pO2 61.4 mm Hg (80.0-90.0) L 11/27/19 11:55 POC ABG HCO3 39.2 11/30/19 04:40 ABG O2 Saturation 86.3 % (95.0-99.0) L 11/27/19 11:55 PT/INR, D-dimer PT 14.6 Sec. (12.2-14.9) 11/27/19 12:08 INR 1.13 (0.87-1.13) 11/27/19 12:08 Abnormal lab findings: Abnormal Labs 11/27/19 11/27/19 11/27/19 11:55 12:08 12:08 WBC Hct 45.8 H MCV 97 H Seg Neuts % (Manual) 76.0 H Lymphocytes % (Manual) 3.0 L Monocytes % (Manual) 17.0 H Nucleated RBC % 1.0 H Seg Neutrophils # Man 7.9 H Lymphocytes # (Manual) 0.3 L Monocytes # (Manual) 1.8 H ABG pH 7.250 L POC ABG pCO2 POC ABG pO2 ABG pO2 61.4 L ABG HCO3 36.5 H ABG O2 Saturation 86.3 L ABG Base Excess 5.9 H ABG Potassium ABG Chloride ABG Glucose Oxyhemoglobin 81.6 L Sodium Potassium 5.5 H Chloride 93.8 L Carbon Dioxide 38 H BUN 75 H Glucose 109 H POC Glucose Calcium 8.3 L Magnesium 3.00 H Ferritin AST 505 H ALT 375 H Lactate Dehydrogenase 408 H C-Reactive Protein 19.50 H NT-Pro-B Natriuret Pep Total Protein Albumin 3.5 L Triglycerides Arterial Blood Glucose Arterial Blood Ionized Calcium Salicylates Acetaminophen 11/27/19 11/27/19 11/27/19 12:08 12:08 12:08 WBC Hct MCV Seg Neuts % (Manual) Lymphocytes % (Manual) Monocytes % (Manual) Nucleated RBC % Seg Neutrophils # Man Lymphocytes # (Manual) Monocytes # (Manual) ABG pH POC ABG pCO2 POC ABG pO2 ABG pO2 ABG HCO3 ABG O2 Saturation ABG Base Excess ABG Potassium ABG Chloride ABG Glucose Oxyhemoglobin Sodium Potassium Chloride Carbon Dioxide BUN Glucose POC Glucose Calcium Magnesium Ferritin 818.7 H AST ALT Lactate Dehydrogenase C-Reactive Protein NT-Pro-B Natriuret Pep Total Protein Albumin Triglycerides Arterial Blood Glucose Arterial Blood Ionized Calcium Salicylates < 0.3 L Acetaminophen 5.0 L 11/27/19 11/27/19 11/28/19 12:22 22:40 01:45 WBC Hct MCV Seg Neuts % (Manual) Lymphocytes % (Manual) Monocytes % (Manual) Nucleated RBC % Seg Neutrophils # Man Lymphocytes # (Manual) Monocytes # (Manual) ABG pH 7.086 L 7.257 L POC ABG pCO2 133.5 H 81.8 H POC ABG pO2 78.4 L 172.6 H ABG pO2 ABG HCO3 ABG O2 Saturation ABG Base Excess ABG Potassium ABG Chloride ABG Glucose Oxyhemoglobin Sodium Potassium Chloride Carbon Dioxide BUN Glucose POC Glucose Calcium Magnesium Ferritin AST ALT Lactate Dehydrogenase C-Reactive Protein NT-Pro-B Natriuret Pep 20221 H Total Protein Albumin Triglycerides Arterial Blood Glucose Arterial Blood Ionized Calcium Salicylates Acetaminophen 11/28/19 11/28/19 11/28/19 05:25 12:36 12:36 WBC 11.3 H Hct MCV 97 H Seg Neuts % (Manual) Lymphocytes % (Manual) Monocytes % (Manual) Nucleated RBC % Seg Neutrophils # Man Lymphocytes # (Manual) Monocytes # (Manual) ABG pH POC ABG pCO2 64.2 H POC ABG pO2 68.1 L ABG pO2 ABG HCO3 ABG O2 Saturation ABG Base Excess ABG Potassium ABG Chloride ABG Glucose Oxyhemoglobin Sodium Potassium 5.4 H Chloride 95.8 L Carbon Dioxide 38 H BUN 46 H Glucose 114 H POC Glucose Calcium 8.0 L Magnesium Ferritin AST 169 H ALT 284 H Lactate Dehydrogenase C-Reactive Protein NT-Pro-B Natriuret Pep Total Protein 5.9 L Albumin 2.9 L Triglycerides Arterial Blood Glucose Arterial Blood Ionized Calcium Salicylates Acetaminophen 11/28/19 11/29/19 11/29/19 15:41 02:42 12:02 WBC Hct MCV Seg Neuts % (Manual) Lymphocytes % (Manual) Monocytes % (Manual) Nucleated RBC % Seg Neutrophils # Man Lymphocytes # (Manual) Monocytes # (Manual) ABG pH POC ABG pCO2 57.2 H POC ABG pO2 80.2 L ABG pO2 ABG HCO3 ABG O2 Saturation ABG Base Excess ABG Potassium 4.6 H ABG Chloride 97.0 L ABG Glucose 131 H Oxyhemoglobin Sodium Potassium Chloride Carbon Dioxide BUN Glucose POC Glucose 122 H 123 H Calcium Magnesium Ferritin AST ALT Lactate Dehydrogenase C-Reactive Protein NT-Pro-B Natriuret Pep Total Protein Albumin Triglycerides Arterial Blood Glucose 131 H Arterial Blood Ionized Calcium 4.1 L Salicylates Acetaminophen 11/29/19 11/29/19 11/30/19 14:48 17:23 04:30 WBC Hct MCV Seg Neuts % (Manual) Lymphocytes % (Manual) Monocytes % (Manual) Nucleated RBC % Seg Neutrophils # Man Lymphocytes # (Manual) Monocytes # (Manual) ABG pH POC ABG pCO2 POC ABG pO2 ABG pO2 ABG HCO3 ABG O2 Saturation ABG Base Excess ABG Potassium ABG Chloride ABG Glucose Oxyhemoglobin Sodium 148 H Potassium Chloride 97.4 L Carbon Dioxide 38 H BUN 51 H Glucose 147 H POC Glucose 127 H Calcium 7.9 L Magnesium Ferritin AST ALT Lactate Dehydrogenase C-Reactive Protein NT-Pro-B Natriuret Pep Total Protein Albumin Triglycerides 216 H Arterial Blood Glucose Arterial Blood Ionized Calcium Salicylates Acetaminophen 11/30/19 11/30/19 04:31 04:40 WBC Hct MCV Seg Neuts % (Manual) Lymphocytes % (Manual) Monocytes % (Manual) Nucleated RBC % Seg Neutrophils # Man Lymphocytes # (Manual) Monocytes # (Manual) ABG pH POC ABG pCO2 61.7 H POC ABG pO2 ABG pO2 ABG HCO3 ABG O2 Saturation ABG Base Excess ABG Potassium 4.6 H ABG Chloride 97.0 L ABG Glucose 167 H Oxyhemoglobin Sodium Potassium Chloride 96.6 L Carbon Dioxide 37 H BUN 52 H Glucose 173 H POC Glucose Calcium 8.2 L Magnesium Ferritin AST 86 H ALT 219 H Lactate Dehydrogenase C-Reactive Protein NT-Pro-B Natriuret Pep Total Protein 6.1 L Albumin 3.0 L Triglycerides Arterial Blood Glucose 167 H Arterial Blood Ionized Calcium 4.4 L Salicylates Acetaminophen
--- NOTE | 2019-11-30 12:16 | Progress Note ---
<LAUREN LEÓN - Last Filed: 11/30/19 12:17> Assessment and Plan Heart failure with a preserved ejection fraction LVEF 55-60% Acute respiratory failure negative for COVID-19 Elevated LFTs Hx of COPD Hx Psychiatric disorder Medical therapy for heart failure with a preserved ejection fraction. Subjective Date of service: 11/30/19 Principal diagnosis: Acute respiratory failure with hypoxia Interval history: Patient remains intubated on the vent. Objective Vital Signs Temp Pulse Pulse Pulse Resp Resp BP 11/30/19 11:59 89 22 11/30/19 11:56 66 125/74 11/30/19 10:30 68 22 119/73 11/30/19 10:00 79 17 126/77 11/30/19 09:30 88 27 H 104/63 11/30/19 09:00 65 16 109/64 11/30/19 08:30 69 26 H 110/63 11/30/19 08:00 98.4 F 65 69 22 105/62 11/30/19 07:35 59 L 26 H 11/30/19 07:30 60 26 H 115/72 11/30/19 07:28 61 115/72 11/30/19 07:00 50 L 26 H 126/76 11/30/19 06:30 54 L 26 H 118/70 11/30/19 06:00 55 L 26 H 114/69 11/30/19 05:30 60 26 H 120/73 11/30/19 05:00 64 26 H 120/70 11/30/19 04:30 63 26 H 115/70 11/30/19 04:27 63 123/74 11/30/19 04:24 61 61 24 11/30/19 04:00 57 L 26 H 111/70 11/30/19 03:38 97.9 F 11/30/19 03:30 66 26 H 107/62 11/30/19 03:00 65 21 119/69 11/30/19 02:30 64 26 H 118/70 11/30/19 02:00 61 19 126/77 11/30/19 01:30 59 L 23 124/75 11/30/19 01:00 65 26 H 112/69 11/30/19 00:30 66 16 105/61 11/30/19 00:24 70 24 11/30/19 00:23 70 11/30/19 00:22 95 H 107/63 11/30/19 00:00 71 23 101/59 11/29/19 23:30 98.8 F 72 26 H 107/66 11/29/19 23:00 74 26 H 116/67 11/29/19 22:30 72 25 H 107/61 11/29/19 22:29 74 26 H 107/61 11/29/19 22:01 96 H 19 115/71 11/29/19 21:54 96 H 99 H 26 H 125/72 11/29/19 21:30 79 26 H 116/69 11/29/19 21:01 96 H 22 125/72 11/29/19 20:30 67 26 H 121/67 11/29/19 20:00 97 H 97 H 26 H 113/62 11/29/19 19:51 100.2 F H 11/29/19 19:30 87 24 118/68 11/29/19 19:00 72 26 H 115/65 11/29/19 18:01 83 26 H 109/62 11/29/19 17:30 64 26 H 123/69 11/29/19 17:00 69 26 H 120/67 11/29/19 16:31 95 H 18 117/65 11/29/19 16:30 69 114/68 11/29/19 16:20 74 26 H 11/29/19 16:00 98 F 70 69 26 H 114/64 11/29/19 15:30 71 26 H 113/65 11/29/19 15:00 78 26 H 114/68 11/29/19 14:30 80 17 111/63 11/29/19 14:00 102 H 15 137/92 11/29/19 13:30 78 13 118/67 11/29/19 13:00 92 H 21 105/64 11/29/19 12:30 70 26 H 104/60 Pulse Ox 11/30/19 11:59 11/30/19 11:56 95 11/30/19 10:30 96 11/30/19 10:00 97 11/30/19 09:30 95 11/30/19 09:00 96 11/30/19 08:30 95 11/30/19 08:00 95 11/30/19 07:35 11/30/19 07:30 97 11/30/19 07:28 97 11/30/19 07:00 98 11/30/19 06:30 97 11/30/19 06:00 97 11/30/19 05:30 97 11/30/19 05:00 98 11/30/19 04:30 98 11/30/19 04:27 98 11/30/19 04:24 95 11/30/19 04:00 97 11/30/19 03:38 11/30/19 03:30 95 11/30/19 03:00 96 11/30/19 02:30 95 11/30/19 02:00 97 11/30/19 01:30 98 11/30/19 01:00 97 11/30/19 00:30 96 11/30/19 00:24 95 11/30/19 00:23 11/30/19 00:22 93 11/30/19 00:00 95 11/29/19 23:30 95 11/29/19 23:00 94 11/29/19 22:30 94 11/29/19 22:29 94 11/29/19 22:01 100 11/29/19 21:54 96 11/29/19 21:30 97 11/29/19 21:01 96 11/29/19 20:30 95 11/29/19 20:00 95 11/29/19 19:51 11/29/19 19:30 95 11/29/19 19:00 94 11/29/19 18:01 93 11/29/19 17:30 94 11/29/19 17:00 96 11/29/19 16:31 93 11/29/19 16:30 95 11/29/19 16:20 11/29/19 16:00 93 11/29/19 15:30 94 11/29/19 15:00 95 11/29/19 14:30 94 11/29/19 14:00 97 11/29/19 13:30 94 11/29/19 13:00 92 11/29/19 12:30 92 - Physical Examination General: Other (intubated on the vent) Cardiac: Positive: Reg Rate and Rhythm - Labs and Meds Cardiac Enzymes 11/30/19 Range/Units 04:31 AST 86 H (5-40) units/L Lipids 11/30/19 Range/Units 04:30 Triglycerides 216 H (2-149) mg/dL Comprehensive Metabolic Panel 11/29/19 11/30/19 Range/Units 14:48 04:31 Sodium 148 H 145 (137-145) mmol/L Potassium 4.8 4.8 (3.6-5.0) mmol/L Chloride 97.4 L 96.6 L (98-107) mmol/L Carbon Dioxide 38 H 37 H (22-30) mmol/L BUN 51 H 52 H (9-20) mg/dL Creatinine 1.3 1.1 (0.8-1.3) mg/dL Glucose 147 H 173 H (75-100) mg/dL Calcium 7.9 L 8.2 L (8.4-10.2) mg/dL AST 86 H (5-40) units/L ALT 219 H (7-56) units/L Alkaline Phosphatase 90 (35-129) units/L Total Protein 6.1 L (6.3-8.2) g/dL Albumin 3.0 L (3.9-5) g/dL <CARRIE NICOLE - Last Filed: 12/07/19 22:55> Assessment and Plan I SAWT HIS PT & AGREE WITH THE Dx & Tx PLAN. - Patient Problems (1) Acute exacerbation of CHF (congestive heart failure) Current Visit: Yes Status: Acute Qualifiers: Heart failure type: combined systolic and diastolic Qualified Code(s): I50.43 - Acute on chronic combined systolic (congestive) and diastolic (congestive) heart failure (2) Acute respiratory acidosis Current Visit: Yes Status: Acute (3) Hyperkalemia Current Visit: Yes Status: Acute (4) Coronary artery disease Current Visit: Yes Status: Chronic Qualifiers: Coronary Disease-Associated Artery/Lesion type: [place] artery [place] vs. transplanted heart: [place] heart Objective Vital Signs Temp Pulse Pulse Pulse Pulse Pulse Pulse 12/07/19 21:32 74 12/07/19 20:42 12/07/19 20:41 87 12/07/19 20:00 98.4 F 74 12/07/19 17:02 73 12/07/19 15:55 82 12/07/19 15:54 98.1 F 86 12/07/19 15:00 12/07/19 14:20 92 H 12/07/19 12:00 78 12/07/19 11:38 97.9 F 77 12/07/19 10:00 77 76 76 76 76 12/07/19 09:24 85 12/07/19 09:22 85 12/07/19 09:20 83 12/07/19 08:25 86 12/07/19 07:17 98.5 F 76 12/07/19 04:26 97.6 F 78 12/06/19 23:27 83 Pulse Resp Resp BP BP Pulse Ox 12/07/19 21:32 107/69 12/07/19 20:42 96 12/07/19 20:41 20 12/07/19 20:00 18 107/69 96 12/07/19 17:02 12/07/19 15:55 93 12/07/19 15:54 20 105/63 78 L 12/07/19 15:00 97 12/07/19 14:20 20 12/07/19 12:00 12/07/19 11:38 20 103/66 96 12/07/19 10:00 76 25 H 96 12/07/19 09:24 94/57 12/07/19 09:22 95/57 12/07/19 09:20 94/57 98 12/07/19 08:25 20 96 12/07/19 07:17 20 102/63 81 L 12/07/19 04:26 20 96/61 88 12/06/19 23:27
--- NOTE | 2019-11-30 14:57 | Progress Note ---
Assessment and Plan Cultures: Blood culture pending SARS CoV2 PCR negative Assessment: 49 years old female with morbid obesity, psychiatric disorder, admitted on 11/27/2019 due to a week history of worsening shortness of breath, cough, generalized weakness, malaise: #Severe sepsis: Present on admission with tachycardia, severe hypoxia likely due to bilateral pneumonia. #Suspect Critical COVID pneumonia: SARS-CoV-2 PCR negative initially. Inflammatory markers, ferritin, CRP and LDH daily elevated. D-dimer pending. Noted elevated BNP #Acute hypoxemic respiratory failure: Initial O2 sat 69%, patient was on BiPAP, now intubated. Likely secondary to COVID-19 pneumonia. However should rule out community-acquired pneumonia given mild elevated procalcitonin and CHF exacerbation given elevated BNP 16,236. #Elevated LFTs: Elevated 10 times baseline. From COVID #Morbid obesity: Associated with poor cell counts. Recommendations: -Obtain SARS-CoV-2 PCR retest -Obtain SARS CoV-2 IgG if negative, then patient is a candidate for COVID convalescent plasma -Start Dexamethasone 6 mg IV/PO daily for 10 days -Patient is not a candidate for Remdesivir due to elevated LFTs to 10 times normal value -Monitor inflammatory markers - ferritin, Ddimer, CRP, LDH. D-dimer is pending -Continue ceftriaxone and azithromycin -Continue anticoagulation per System Protocol -Prone positioning as possible High mortality All laboratory, cultures and imaging were reviewed. Will follow Rocky Cosby MD [facility] ([facility] M: [phone] O: [phone] F: [phone] Subjective Date of service: 11/30/19 Principal diagnosis: Acute respiratory failure with hypoxia Interval history: Afebrile, no other acute changes. Remains on the vent. Objective - Exam Narrative Exam: Physical exam deferred due to PPE conservation strategy. Please refer to primary team's note. - Constitutional Vitals: Vital Signs Temp Pulse Resp BP Pulse Ox 98.4 F 74 21 105/62 94 11/30/19 08:00 11/30/19 12:30 11/30/19 12:30 11/30/19 12:30 11/30/19 12:30 Temperature -Last 24 Hours Temperature 98.4 F Temperature 97.9 F Temperature 98.8 F Temperature 100.2 F Temperature 98 F - Labs CBC & Chem 7: 11/28/19 12:36 11/30/19 04:31 Labs: Abnormal lab results 11/29/19 11/29/19 11/30/19 Range/Units 14:48 17:23 04:30 POC ABG pCO2 (32.0-48.0) mmHg ABG Potassium (3.40-4.50) mmol/L ABG Chloride (98-107) mmol/L ABG Glucose (65-95) mg/dL Sodium 148 H (137-145) mmol/L Chloride 97.4 L (98-107) mmol/L Carbon Dioxide 38 H (22-30) mmol/L BUN 51 H (9-20) mg/dL Glucose 147 H (75-100) mg/dL POC Glucose 127 H (70-105) Calcium 7.9 L (8.4-10.2) mg/dL AST (5-40) units/L ALT (7-56) units/L Total Protein (6.3-8.2) g/dL Albumin (3.9-5) g/dL Triglycerides 216 H (2-149) mg/dL Arterial Blood Glucose (65-95) mg/dL Arterial Blood Ionized Calcium (4.6-5.3) mg/dL 11/30/19 11/30/19 11/30/19 Range/Units 04:31 04:40 12:33 POC ABG pCO2 61.7 H (32.0-48.0) mmHg ABG Potassium 4.6 H (3.40-4.50) mmol/L ABG Chloride 97.0 L (98-107) mmol/L ABG Glucose 167 H (65-95) mg/dL Sodium (137-145) mmol/L Chloride 96.6 L (98-107) mmol/L Carbon Dioxide 37 H (22-30) mmol/L BUN 52 H (9-20) mg/dL Glucose 173 H (75-100) mg/dL POC Glucose 164 H (70-105) Calcium 8.2 L (8.4-10.2) mg/dL AST 86 H (5-40) units/L ALT 219 H (7-56) units/L Total Protein 6.1 L (6.3-8.2) g/dL Albumin 3.0 L (3.9-5) g/dL Triglycerides (2-149) mg/dL Arterial Blood Glucose 167 H (65-95) mg/dL Arterial Blood Ionized Calcium 4.4 L (4.6-5.3) mg/dL
[2019-11-30] MEDS: carvediloL 3.125 MG TAB PO SCH (22:42)
[2019-12-01 05:22] LABS: ABG Base Excess 14.4 mmol/L (-2.0-3.0); ABG HCO3 42.8 mmol/L (20.0-26.0); ABG Methemoglobin 0.6 % (0.0-1.5); ABG Oxygen Saturation 99.1 % (95.0-99.0); ABG PH 7.411 pH Units (7.350-7.450); ABG PO2 186.5 mm Hg (80.0-90.0)
[2019-12-01] MEDS: methylPREDNISolone Sod Succinate 125 MG/2 ML INJ IV SCH ×3 (05:43→21:17)
[2019-12-01] MEDS: HEPARIN 5,000 UNIT/1 ML VIAL SUB-Q SCH ×3 (05:43→21:17)
[2019-12-01] MEDS: FUROSEMIDE 40 MG/4 ML INJ IV SCH ×2 (05:43→17:28)
--- NOTE | 2019-12-01 06:50 | Progress Note ---
Assessment and Plan Assessment and plan: 49-year-old male with history of psychiatric problems on valproic acid comes in for cough productive of thick mucoid sputum, weakness, malaise and fatigue. No fever or chills. No vomiting or diarrhea. No sick contacts. No exposure to coronavirus. Patient very short of breath and very low oxygen saturations-at the time of admission. His oxygen saturation was 67% on room air at the time of admission improved to 92% with on BiPAP. History of coronary artery disease but no CHF 11/28 Patient is intubated and sedated No family member is available Vital signs stable Lab results reviewed from yesterday No new lab results today Cardiology and pulmonary consult notes reviewed 11/29: Remains intubated, continue aggressive management, Negative COVID19 Negative. 11/30: Continue vent management per greek professor, wean as tolerated, obtain CT chest to eval for PE as d.dimer significantly elevated. Assessment and plan Acute combined respiratory failure with hypoxia Pulmonary note reviewed and appreciated Patient remains intubated on FiO2 of 55% and PEEP of 10 Continue management per pulmonary recommendations COPD with acute exacerbation Intensivsit managing Acute Diastolic CHF WITH PRESERVED EF Cardiology note reviewed Continue IV Lasix Echo ordered Monitor electrolytes Hyperkalemia No labs available from this morning Will order stat BMP Transaminitis Trending down Unclear etiology Possibly congestive hepatopathy from CHF Monitor LFTs Tested negative for COVID 19 virus The high probability of a clinically significant, sudden or life threatening deterioration of the [pulmonary] system(s) required my full and direct attention, intervention and personal management. The aggregate critical care time was [35] minutes. This time is in addition to time spent performing reporte d procedures but includes the following: [x] Data Review and interpretation [x] Patient assessment and monitoring of vital signs [x] Documentation [x] Medication orders and management History Interval history: Patient seen and examined remains on the vent. Hospitalist Physical - Physical exam Narrative exam: General appearance: Present: no acute distress, other (Sedated secondary to intubation) - EENT Eyes: PERRL - Neck Neck: supple, no masses or JVD - Respiratory Respiratory effort: normal Respiratory: bilateral: CTA - Cardiovascular Rhythm: regular Heart Sounds: Present: S1 & S2 Extremities: No edema - Gastrointestinal General gastrointestinal: Present: soft, non-tender - Genitourinary Male genitourinary: deferred - Integumentary Integumentary: clear - Neurologic Neurologic: other (Patient is sedated) - Constitutional Vitals: Temp Pulse Resp BP Pulse Ox 98.9 F 71 15 136/83 93 12/01/19 06:00 12/01/19 06:00 12/01/19 06:00 12/01/19 06:00 12/01/19 06:00 General appearance: Present: no acute distress, other (Sedated secondary to intubation) HEART Score - HEART Score Age: 45-65 Risk factors: 1-2 risk factors Troponin: 1-3x normal limit - Critical Actions Critical Actions: 4-6 pts:12-16.6% risk of adverse cardiac event. Should be a dmitted Results - Labs CBC & Chem 7: 11/28/19 12:36 11/30/19 04:31 Labs: Laboratory Last Values WBC 11.3 K/mm3 (4.5-11.0) H 11/28/19 12:36 RBC 4.32 M/mm3 (3.65-5.03) 11/28/19 12:36 Hgb 13.6 gm/dl (11.8-15.2) 11/28/19 12:36 Hct 42.0 % (35.5-45.6) 11/28/19 12:36 MCV 97 fl (84-94) H 11/28/19 12:36 MCH 31 pg (28-32) 11/28/19 12:36 MCHC 32 % (32-34) 11/28/19 12:36 RDW 14.7 % (13.2-15.2) 11/28/19 12:36 Plt Count 207 K/mm3 (140-440) 11/28/19 12:36 Add Manual Diff Complete 11/27/19 12:08 Total Counted 100 11/27/19 12:08 Seg Neuts % (Manual) 76.0 % (40.0-70.0) H 11/27/19 12:08 Band Neutrophils % 3.0 % 11/27/19 12:08 Lymphocytes % (Manual) 3.0 % (13.4-35.0) L 11/27/19 12:08 Reactive Lymphs % (Man) 0 % 11/27/19 12:08 Monocytes % (Manual) 17.0 % (0.0-7.3) H 11/27/19 12:08 Eosinophils % (Manual) 0 % (0.0-4.3) 11/27/19 12:08 Basophils % (Manual) 0 % (0.0-1.8) 11/27/19 12:08 Metamyelocytes % 1.0 % 11/27/19 12:08 Myelocytes % 0 % 11/27/19 12:08 Promyelocytes % 0 % 11/27/19 12:08 Blast Cells % 0 % 11/27/19 12:08 Nucleated RBC % 1.0 % (0.0-0.9) H 11/27/19 12:08 Seg Neutrophils # Man 7.9 K/mm3 (1.8-7.7) H 11/27/19 12:08 Band Neutrophils # 0.3 K/mm3 11/27/19 12:08 Lymphocytes # (Manual) 0.3 K/mm3 (1.2-5.4) L 11/27/19 12:08 Abs React Lymphs (Man) 0.0 K/mm3 11/27/19 12:08 Monocytes # (Manual) 1.8 K/mm3 (0.0-0.8) H 11/27/19 12:08 Eosinophils # (Manual) 0.0 K/mm3 (0.0-0.4) 11/27/19 12:08 Basophils # (Manual) 0.0 K/mm3 (0.0-0.1) 11/27/19 12:08 Metamyelocytes # 0.1 K/mm3 11/27/19 12:08 Myelocytes # 0.0 K/mm3 11/27/19 12:08 Promyelocytes # 0.0 K/mm3 11/27/19 12:08 Blast Cells # 0.0 K/mm3 11/27/19 12:08 WBC Morphology Not Reportable 11/27/19 12:08 Hypersegmented Neuts Not Reportable 11/27/19 12:08 Hyposegmented Neuts Not Reportable 11/27/19 12:08 Hypogranular Neuts Not Reportable 11/27/19 12:08 Smudge Cells Not Reportable 11/27/19 12:08 Toxic Granulation Not Reportable 11/27/19 12:08 Toxic Vacuolation Not Reportable 11/27/19 12:08 Dohle Bodies Not Reportable 11/27/19 12:08 Pelger-Huet Anomaly Not Reportable 11/27/19 12:08 Malena Rods Not Reportable 11/27/19 12:08 Platelet Estimate Consistent w auto 11/27/19 12:08 Clumped Platelets Not Reportable 11/27/19 12:08 Plt Clumps, EDTA Not Reportable 11/27/19 12:08 Large Platelets Not Reportable 11/27/19 12:08 Giant Platelets Not Reportable 11/27/19 12:08 Platelet Satelliting Not Reportable 11/27/19 12:08 Plt Morphology Comment Not Reportable 11/27/19 12:08 RBC Morphology Normal 11/27/19 12:08 Dimorphic RBCs Not Reportable 11/27/19 12:08 Polychromasia Not Reportable 11/27/19 12:08 Hypochromasia Not Reportable 11/27/19 12:08 Poikilocytosis Not Reportable 11/27/19 12:08 Anisocytosis Not Reportable 11/27/19 12:08 Microcytosis Not Reportable 11/27/19 12:08 Macrocytosis Not Reportable 11/27/19 12:08 Spherocytes Not Reportable 11/27/19 12:08 Pappenheimer Bodies Not Reportable 11/27/19 12:08 Sickle Cells Not Reportable 11/27/19 12:08 Target Cells Not Reportable 11/27/19 12:08 Tear Drop Cells Not Reportable 11/27/19 12:08 Ovalocytes Not Reportable 11/27/19 12:08 Helmet Cells Not Reportable 11/27/19 12:08 Herrera-Asbury Bodies Not Reportable 11/27/19 12:08 Mathias Rings Not Reportable 11/27/19 12:08 Dain Cells Not Reportable 11/27/19 12:08 Bite Cells Not Reportable 11/27/19 12:08 Crenated Cell Not Reportable 11/27/19 12:08 Elliptocytes Not Reportable 11/27/19 12:08 Acanthocytes (Spur) Not Reportable 11/27/19 12:08 Rouleaux Not Reportable 11/27/19 12:08 Hemoglobin C Crystals Not Reportable 11/27/19 12:08 Schistocytes Not Reportable 11/27/19 12:08 Malaria parasites Not Reportable 11/27/19 12:08 Rock Bodies Not Reportable 11/27/19 12:08 Hem Pathologist Commnt No 11/27/19 12:08 PT 14.6 Sec. (12.2-14.9) 11/27/19 12:08 INR 1.13 (0.87-1.13) 11/27/19 12:08 ABG pH 7.411 pH Units (7.350-7.450) 12/01/19 04:16 POC ABG pCO2 61.7 mmHg (32.0-48.0) H 11/30/19 04:40 ABG pCO2 69.0 mm Hg 12/01/19 04:16 POC ABG pO2 86.6 mmHg (83-108) 11/30/19 04:40 ABG pO2 186.5 mm Hg (80.0-90.0) H 12/01/19 04:16 POC ABG HCO3 39.2 11/30/19 04:40 ABG HCO3 42.8 mmol/L (20.0-26.0) H 12/01/19 04:16 ABG O2 Saturation 99.1 % (95.0-99.0) H 12/01/19 04:16 ABG O2 Content 21.2 (0.0-44) 12/01/19 04:16 POC ABG Base Excess 11.8 11/30/19 04:40 ABG Base Excess 14.4 mmol/L (-2.0-3.0) H 12/01/19 04:16 ABG Hemoglobin 15.3 gm/dl (14.0-18.0) 12/01/19 04:16 ABG Carboxyhemoglobin 1.4 % (0.0-5.0) 12/01/19 04:16 ABG Methemoglobin 0.6 % (0.0-1.5) 12/01/19 04:16 ABG Sodium 142.0 mmol/L (136.0-145.0) 11/30/19 04:40 ABG Potassium 4.6 mmol/L (3.40-4.50) H 11/30/19 04:40 ABG Chloride 97.0 mmol/L (98-107) L 11/30/19 04:40 ABG Glucose 167 mg/dL (65-95) H 11/30/19 04:40 Oxyhemoglobin 97.2 % (95.0-99.0) 12/01/19 04:16 FiO2 70 % 12/01/19 04:16 Sodium 145 mmol/L (137-145) 11/30/19 04:31 Potassium 4.8 mmol/L (3.6-5.0) 11/30/19 04:31 Chloride 96.6 mmol/L (98-107) L 11/30/19 04:31 Carbon Dioxide 37 mmol/L (22-30) H 11/30/19 04:31 Anion Gap 16 mmol/L 11/30/19 04:31 BUN 52 mg/dL (9-20) H 11/30/19 04:31 Creatinine 1.1 mg/dL (0.8-1.3) 11/30/19 04:31 Estimated GFR > 60 ml/min 11/30/19 04:31 BUN/Creatinine Ratio 47 % 11/30/19 04:31 Glucose 173 mg/dL (75-100) H 11/30/19 04:31 POC Glucose 151 (70-105) H 12/01/19 05:35 Hemoglobin A1c 4.7 % (4-6) 11/28/19 04:15 Lactic Acid 1.30 mmol/L (0.7-2.0) 11/27/19 12:08 Calcium 8.2 mg/dL (8.4-10.2) L 11/30/19 04:31 Magnesium 3.00 mg/dL (1.7-2.3) H 11/27/19 12:08 Ferritin 818.7 ng/mL (30.0-300.0) H 11/27/19 12:08 Total Bilirubin 0.30 mg/dL (0.1-1.2) 11/30/19 04:31 AST 86 units/L (5-40) H 11/30/19 04:31 ALT 219 units/L (7-56) H 11/30/19 04:31 Alkaline Phosphatase 90 units/L (35-129) 11/30/19 04:31 Lactate Dehydrogenase 408 units/L (91-180) H 11/27/19 12:08 Total Creatine Kinase 83 units/L (55-170) 11/27/19 12:08 C-Reactive Protein 19.50 mg/dL (0.00-1.30) H 11/27/19 12:08 NT-Pro-B Natriuret Pep 97222 pg/mL (0-450) H 11/27/19 12:22 Total Protein 6.1 g/dL (6.3-8.2) L 11/30/19 04:31 Albumin 3.0 g/dL (3.9-5) L 11/30/19 04:31 Albumin/Globulin Ratio 1.0 % 11/30/19 04:31 Triglycerides 216 mg/dL (2-149) H 11/30/19 04:30 Procalcitonin 0.56 ng/mL (<0.15) 11/27/19 12:08 Arterial Blood Glucose 167 mg/dL (65-95) H 11/30/19 04:40 Arterial Blood Ionized Calcium 4.4 mg/dL (4.6-5.3) L 11/30/19 04:40 Salicylates < 0.3 mg/dL (2.8-20.0) L 11/27/19 12:08 Acetaminophen 5.0 ug/mL (10.0-30.0) L 11/27/19 12:08 Valproic Acid 64.7 ug/mL (50-100) 11/27/19 12:08 Coronavirus (PCR) Negative (Negative) 11/28/19 10:00 Microbiology: Microbiology 11/27/19 12:08 Peripheral/Venous Blood Culture - Preliminary NO GROWTH AFTER 72 HOURS 11/27/19 12:08 Peripheral/Venous Blood Culture - Preliminary NO GROWTH AFTER 72 HOURS - Diagnostic Impressions Diagnostic Impressions: Echocardiogram 11/27/19 19:28 Transthoracic Echocardiogram Indication: SOB BP: 124/71 HR: 75 Conclusions *EF 55-60% *TR JET INADEQUATE TO DETERMINE RVSP *RV ENLARGEMENT DYSFUNCTION Findings Left Ventricle: The left ventricular chamber size is normal. Global left ventricular systolic function is normal. The estimated ejection fraction is 55-60%. Abnormal left ventricular diastolic filling is observed, consistent with impaired relaxation. Left Atrium: The left atrial chamber size is normal. Right Ventricle: The right ventricle is mildly dilated. The right ventricular global systolic function is moderately reduced. Right Atrium: The right atrial cavity size is normal. Aortic Valve: The aortic valve leaflets are mildly thickened. There is no evidence of aortic regurgitation. Mitral Valve: The mitral valve leaflets appear normal. There is no evidence of mitral regurgitation. Tricuspid Valve: There is no evidence of tricuspid valve regurgitation. Pulmonic Valve: The pulmonic valve is not well visualized. Pericardium: There is no pericardial effusion. Aorta: The aorta appears normal. Measurements Chambers 2D Name Value Normal Range IVSd (2D) 1.07 cm (0.6 - 1.1) LVPWd (2D) 0.96 cm (0.6 - 1.1) LVIDd (2D) 4.93 cm (3.7 - 5.6) LVIDs (2D) 4.08 cm (2 - 3.8) LV FS (2D) 17.21 % - Ao root diameter (2D) 3.72 cm (2 - 3.7) Volumes/Mass Name Value Normal Range LA ESV SP 4CH (A/L) 20.87 ml - LA ESV SP 2CH (A/L) 41 ml - LA ESV BP (A/L) 30.22 ml - LA ESV BP (A/L) index 14.96 ml/m2 - LA ESV SP 4CH (MOD) 21.34 ml - LA ESV SP 2CH (MOD) 40.04 ml - LA ESV BP (MOD) 29.33 ml - LA ESV BP (MOD) index 14.52 ml/m2 - Diastolic/Systolic Function Name Value Normal Range MV E-wave Vmax 0.48 m/sec - MV deceleration time 268.38 msec - MV A-wave Vmax 0.56 m/sec - MV E:A ratio 0.86 ratio - Aortic Valve Name Value Normal Range AV Vmax 1.22 m/sec - AV VTI 22.32 cm - AV peak gradient 5.99 mmHg - AV mean gradient 3.69 mmHg - LVOT diameter 2.65 cm - LVOT Vmax 0.73 m/sec - LVOT VTI 13.52 cm - LVOT peak gradient 2.13 mmHg - LVOT mean gradient 1.22 mmHg - SV LVOT 74.61 ml - AGNES (continuity Vmax) 3.29 cm2 - AGNES (continuity VTI) 3.34 cm2 - Tricuspid Valve Name Value Normal Range RAP 3 mmHg - IVC diameter 2.23 cm (1.2 - 2.3) Pulmonic Valve/Qp:Qs Name Value Normal Range PV acceleration time 98.95 msec - Cohen/IV: Voiding Method Indwelling Catheter IV Catheter Type [Right Wrist] INT / Saline Lock IV Catheter Type [Left INT / Saline Lock Antecubital] IV Catheter Type [Right Hand] INT / Saline Lock Active Medications - Current Medications Current Medications: Generic Name Dose Route Start Last Admin Trade Name Freq PRN Reason Stop Dose Admin Acetaminophen 650 mg 11/27/19 19:22 11/29/19 23:20 Tylenol PO 650 mg Q4H PRN Administration Pain MILD(1-3)/Fever >100.5/DIXON Albuterol/Ipratropium 1 ampul 11/27/19 19:24 11/28/19 02:00 Duoneb *Not For Prn Use* IH 1 ampul Q3H PRN Administration Wheezing Albuterol/Ipratropium 1 ampul 11/27/19 20:00 11/30/19 22:04 Duoneb *Not For Prn Use* IH 1 ampul QIDRT AYAKA Administration Lipase/Protease/Amylase 1 each 11/29/19 12:44 Pancreaze 10,500 Unit FEEDTUBE PRN PRN For Clogged Feeding Tube Carvedilol 3.125 mg 11/30/19 22:00 11/30/19 22:42 Coreg PO 3.125 mg BID AYAKA Administration Famotidine 20 mg 11/29/19 10:00 11/30/19 22:41 Pepcid PO 20 mg BID AYAKA Administration Fentanyl 50 mcg 11/28/19 00:06 11/28/19 22:40 Sublimaze IV 50 mcg Q2H PRN Administration Sedation Furosemide 40 mg 11/28/19 06:00 12/01/19 05:43 Lasix IV 40 mg 0600,1800 AYAKA Administration Heparin Sodium (Porcine) 5,000 unit 11/29/19 22:00 12/01/19 05:43 Heparin SUB-Q 5,000 unit Q8HR AYAKA Administration Hydromorphone HCl 0.5 mg 11/27/19 19:22 11/27/19 20:14 Dilaudid IV 0.5 mg Q3H PRN Administration Pain , Severe (7-10) Ceftriaxone Sodium 2 gm in 100 mls @ 200 mls/hr 11/27/19 20:00 11/30/19 10:05 Rocephin/Ns 2 Gm/100 Ml IV Infused Q24HR AYAKA Infusion Protocol Azithromycin 500 mg/ Sodium 250 mls @ 250 mls/hr 11/28/19 10:00 11/30/19 10:10 Chloride IV Infused Q24HR [facility] Infusion Protocol Propofol 1,000 mg in 100 mls @ 4.627 mls/hr 11/28/19 01:00 12/01/19 05:56 Diprivan 10 Mg/Ml IV 30 mcg/kg/min TITR AYAKA 27.76 mls/hr Administration Protocol 5 MCG/KG/MIN Lisinopril 2.5 mg 12/01/19 10:00 Zestril PO QDAY AYAKA Lorazepam 0.5 mg 11/27/19 20:19 11/27/19 20:21 Ativan IV 0.5 mg Q3H PRN Administration Agitation Methylprednisolone Sodium Succinate 40 mg 11/29/19 12:00 12/01/19 05:43 Solu-Medrol IV 40 mg Q8HR AYAKA Administration Metoclopramide HCl 10 mg 11/27/19 19:22 Reglan IV Q6H PRN Nausea And Vomiting Morphine Sulfate 2 mg 11/27/19 19:22 Morphine IV Q4H PRN Pain, Moderate (4-6) Olanzapine 20 mg 11/27/19 22:00 11/30/19 22:42 Zyprexa PO 20 mg HS AYAKA Administration Olanzapine 10 mg 11/30/19 11:00 11/30/19 10:43 Zyprexa PO 10 mg DAILY AYAKA Administration Ondansetron HCl 4 mg 11/27/19 19:22 Zofran IV Q3H PRN Nausea And Vomiting Simple Syrup 15 ml 11/29/19 12:44 Simple Syrup FEEDTUBE PRN PRN Hypoglycemia Simple Syrup 30 ml 11/29/19 12:44 Simple Syrup FEEDTUBE PRN PRN Hypoglycemia Sodium Bicarbonate 325 mg 11/29/19 12:44 Sodium Bicarbonate FEEDTUBE PRN PRN For Clogged Feeding Tube Sodium Chloride 10 ml 11/27/19 22:00 11/30/19 22:43 Sodium Chloride Flush Syringe 10 Ml IV 10 ml BID AYAKA Administration Sodium Chloride 10 ml 11/27/19 19:22 11/28/19 13:10 Sodium Chloride Flush Syringe 10 Ml IV 10 ml PRN PRN Administration LINE FLUSH Valproic Acid 250 mg 11/29/19 10:00 11/30/19 22:42 Depakene Liq FEEDTUBE 250 mg BID AYAKA Administration Nutrition/Malnutrition Assess - Dietary Evaluation Nutrition/Malnutrition Findings: Nutrition Notes Start: 11/29/19 12:28 Freq: Status: Active Protocol: Document 11/29/19 12:28 MANI (Rec: 11/29/19 12:44 MANI [id number]) Nutrition Notes Need for Assessment generated from: MD Order Initial or Follow up Assessment Current Diagnosis Coronary Artery Disease, Hypertension,Heart Failure Other Pertinent Diagnosis Acute respiratory failure Current Diet NPO Labs/Tests K 5.4 BUN 46 Pertinent Medications Propofol at 27.76 ml/hr (732 kcal) Lasix Height 6 ft 1 in Weight 154.221 kg [place] Body Weight (kg) 83.63 BMI 44.9 Weight Status Morbidly Obese Subjective/Other Information verbal ordrer for TF. Pt on vent. Burn Absent Trauma Absent Current % PO Negligible Minimum of two criteria No physical signs of malnutrition #1 Nutrition Diagnosis Inadequate oral intake Etiology acute respirtory failure As Evidenced by Signs and Symptoms pt on vent Is patient on ventilator? Yes Is Patient Ambulatory and/or Out of Bed No REE-([place]-confined to bed) 2962.056 Kcal/Kg value to use for calculation 13 Approximate Energy Requirements Using 2005 kcal/Kg Calculation Used for Recommendations Kcal/kg Additional Notes Pro: 210 g (<2.5 g/kg IBW) Fluid: 1 ml/kcal Nutrition Intervention Change Diet Order: TF Nutrition Support: Nepro 1.8 at 40 ml/hr Flush 200 ml q4h Kcal 1,728 Protein (gm) 78 Goal #1 Start and tolerate TF Goal #2 Meet at least 75% of protein and energy needs via TF Anticipated Discharge Needs: Unable to determine at this time Follow-Up By: 12/01/19 Additional Comments FU for TF tolerance, K labs, Propofol
[2019-12-01] MEDS: IPRATROPIUM/ALBUTEROL SULFATE 3 ML AMPUL.NEB IH SCH ×4 (08:54→20:32)
[2019-12-01] MEDS: FAMOTIDINE 20 MG TAB PO SCH ×2 (09:34→21:18)
[2019-12-01] MEDS: carvediloL 3.125 MG TAB PO SCH ×2 (09:35→21:18)
[2019-12-01] MEDS: cefTRIAXone/NS 2 GM/100 ML 2 GM/100 ML BAG IV SCH (09:35)
[2019-12-01] MEDS: VALPROIC ACID 250 MG/5 ML ORAL LIQD FEEDTUBE SCH ×2 (09:35→21:18)
--- NOTE | 2019-12-01 10:02 | XRay Report ---
CHEST 1 VIEW INDICATION: follow up respiratory failure COMPARISON: 11/30/2019 FINDINGS: SUPPORT DEVICES: Endotracheal tubes has tip in good position. Nasogastric tube has tip below diaphrag m HEART / MEDIASTINUM: No significant abnormality. LUNGS / PLEURA: No significant pulmonary or pleural abnormality. No pneumothorax. ADDITIONAL FINDINGS: IMPRESSION: 1. No acute cardiopulmonary disease Signer Name: Chris Garcia MD Signed: 12/01/2019 9:56 AM Workstation Name: [id number]
[2019-12-01] MEDS: LISINOPRIL 5 MG TAB PO SCH (10:11)
[2019-12-01] MEDS: AZITHROMYCIN 500 MG in SODIUM CHLORIDE 0.9% 250ML 250 ML IV SCH (10:11)
--- NOTE | 2019-12-01 10:25 | Progress Note ---
<LAUREN LEÓN - Last Filed: 12/01/19 10:22> Assessment and Plan Heart failure with a preserved ejection fraction LVEF 55-60% Acute respiratory failure negative for COVID-19 Elevated LFTs Hx of COPD Hx Psychiatric disorder Continue medical therapy for heart failure with a preserved ejection fraction. Subjective Date of service: 12/01/19 Principal diagnosis: Acute respiratory failure with hypoxia Interval history: Patient remains intubated on the vent. Objective Vital Signs Temp Pulse Pulse Pulse Resp Resp BP 12/01/19 10:11 71 133/83 12/01/19 10:00 84 83 13 26 H 133/83 12/01/19 09:35 71 136/88 12/01/19 09:30 76 25 H 136/88 12/01/19 09:00 71 14 133/79 12/01/19 08:50 90 118/69 12/01/19 08:30 67 22 122/72 12/01/19 08:00 98.0 F 68 16 132/80 12/01/19 07:30 57 L 20 129/80 12/01/19 07:00 63 15 122/78 12/01/19 06:30 68 19 125/79 12/01/19 06:00 98.9 F 71 15 136/83 12/01/19 05:42 98.0 F 12/01/19 05:30 61 20 136/79 12/01/19 05:00 59 L 24 141/83 12/01/19 04:45 58 L 137/83 12/01/19 04:30 56 L 21 145/86 12/01/19 04:10 56 L 70 18 12/01/19 04:00 55 L 17 140/84 12/01/19 03:30 55 L 22 131/81 12/01/19 03:00 57 L 13 140/84 12/01/19 02:30 64 14 140/83 12/01/19 02:00 61 17 140/87 12/01/19 01:30 69 16 124/80 12/01/19 01:00 63 70 16 139/87 12/01/19 00:30 69 16 128/82 12/01/19 00:06 74 137/85 12/01/19 00:00 99.1 F 72 14 137/85 11/30/19 23:35 82 13 124/74 11/30/19 23:30 75 17 124/74 11/30/19 23:00 76 26 H 128/77 11/30/19 22:42 88 118/70 11/30/19 22:30 80 18 118/70 11/30/19 22:02 77 22 11/30/19 22:00 78 26 H 133/82 11/30/19 21:59 77 133/82 11/30/19 21:30 73 18 121/75 11/30/19 21:00 77 16 119/75 11/30/19 20:31 94 H 17 133/77 11/30/19 20:18 83 11/30/19 20:12 83 18 11/30/19 20:01 92 H 18 126/79 11/30/19 20:00 98.0 F 11/30/19 19:30 84 16 132/81 11/30/19 19:00 74 20 125/71 11/30/19 18:31 89 21 125/82 11/30/19 18:00 67 13 128/73 11/30/19 17:30 71 13 133/79 11/30/19 17:00 69 15 129/77 11/30/19 16:30 73 18 128/77 11/30/19 16:00 98.4 F 69 70 16 128/79 11/30/19 15:30 70 18 123/73 11/30/19 15:00 80 13 135/82 11/30/19 14:30 79 17 113/70 11/30/19 14:01 94 H 17 126/80 11/30/19 13:30 98 H 19 130/76 11/30/19 13:01 108 H 13 112/67 11/30/19 12:30 74 21 105/62 11/30/19 12:00 98.4 F 91 H 92 H 19 136/67 11/30/19 11:59 89 22 11/30/19 11:56 66 125/74 11/30/19 11:30 64 14 122/73 11/30/19 11:00 69 18 119/73 11/30/19 10:30 68 22 119/73 Pulse Ox 12/01/19 10:11 12/01/19 10:00 12/01/19 09:35 12/01/19 09:30 93 12/01/19 09:00 92 12/01/19 08:50 94 12/01/19 08:30 91 12/01/19 08:00 90 12/01/19 07:30 89 12/01/19 07:00 91 12/01/19 06:30 93 12/01/19 06:00 93 12/01/19 05:42 12/01/19 05:30 95 12/01/19 05:00 94 12/01/19 04:45 97 12/01/19 04:30 95 12/01/19 04:10 92 12/01/19 04:00 95 12/01/19 03:30 96 12/01/19 03:00 95 12/01/19 02:30 95 12/01/19 02:00 12/01/19 01:30 96 12/01/19 01:00 96 12/01/19 00:30 97 12/01/19 00:06 95 12/01/19 00:00 94 11/30/19 23:35 98 11/30/19 23:30 94 11/30/19 23:00 96 11/30/19 22:42 11/30/19 22:30 95 11/30/19 22:02 11/30/19 22:00 11/30/19 21:59 94 11/30/19 21:30 88 11/30/19 21:00 88 11/30/19 20:31 95 11/30/19 20:18 11/30/19 20:12 92 11/30/19 20:01 94 11/30/19 20:00 11/30/19 19:30 93 11/30/19 19:00 91 11/30/19 18:31 94 11/30/19 18:00 91 11/30/19 17:30 91 11/30/19 17:00 91 11/30/19 16:30 11/30/19 16:00 89 11/30/19 15:30 88 11/30/19 15:00 94 11/30/19 14:30 11/30/19 14:01 95 11/30/19 13:30 97 11/30/19 13:01 96 11/30/19 12:30 94 11/30/19 12:00 97 11/30/19 11:59 11/30/19 11:56 95 11/30/19 11:30 95 11/30/19 11:00 96 11/30/19 10:30 96 - Physical Examination General: Other (intubated on the vent) Cardiac: Positive: Reg Rate and Rhythm <CARRIE NICOLE Last Filed: 12/01/19 13:23> Assessment and Plan - Patient Problems (1) Acute exacerbation of CHF (congestive heart failure) Current Visit: Yes Status: Acute Qualifiers: Heart failure type: combined systolic and diastolic Qualified Code(s): I50.43 - Acute on chronic combined systolic (congestive) and diastolic (congestive) heart failure (2) Acute respiratory acidosis Current Visit: Yes Status: Acute (3) Hyperkalemia Current Visit: Yes Status: Acute (4) Coronary artery disease Current Visit: Yes Status: Chronic Qualifiers: Coronary Disease-Associated Artery/Lesion type: hughes artery [place] vs. transplanted heart: hughes heart Subjective Interval history: I SAW THIS PT & AGREE WITH THE Dx & Tx Objective Vital Signs Temp Pulse Pulse Pulse Resp Resp BP 12/01/19 12:22 84 125/80 12/01/19 12:00 98.9 F 68 21 129/81 12/01/19 11:30 78 15 124/78 12/01/19 11:00 70 18 137/81 12/01/19 10:30 71 15 135/78 12/01/19 10:11 71 133/83 12/01/19 10:00 84 83 13 26 H 133/83 12/01/19 09:35 71 136/88 12/01/19 09:30 76 25 H 136/88 12/01/19 09:00 71 14 133/79 12/01/19 08:50 90 118/69 12/01/19 08:30 67 22 122/72 12/01/19 08:00 98.0 F 68 16 132/80 12/01/19 07:30 57 L 20 129/80 12/01/19 07:00 63 15 122/78 12/01/19 06:30 68 19 125/79 12/01/19 06:00 98.9 F 71 15 136/83 12/01/19 05:42 98.0 F 12/01/19 05:30 61 20 136/79 12/01/19 05:00 59 L 24 141/83 12/01/19 04:45 58 L 137/83 12/01/19 04:30 56 L 21 145/86 12/01/19 04:10 56 L 70 18 12/01/19 04:00 55 L 17 140/84 12/01/19 03:30 55 L 22 131/81 12/01/19 03:00 57 L 13 140/84 12/01/19 02:30 64 14 140/83 12/01/19 02:00 61 17 140/87 12/01/19 01:30 69 16 124/80 12/01/19 01:00 63 70 16 139/87 12/01/19 00:30 69 16 128/82 12/01/19 00:06 74 137/85 12/01/19 00:00 99.1 F 72 14 137/85 11/30/19 23:35 82 13 124/74 11/30/19 23:30 75 17 124/74 11/30/19 23:00 76 26 H 128/77 11/30/19 22:42 88 118/70 11/30/19 22:30 80 18 118/70 11/30/19 22:02 77 22 11/30/19 22:00 78 26 H 133/82 11/30/19 21:59 77 133/82 11/30/19 21:30 73 18 121/75 11/30/19 21:00 77 16 119/75 11/30/19 20:31 94 H 17 133/77 11/30/19 20:18 83 11/30/19 20:12 83 18 11/30/19 20:01 92 H 18 126/79 11/30/19 20:00 98.0 F 11/30/19 19:30 84 16 132/81 11/30/19 19:00 74 20 125/71 11/30/19 18:31 89 21 125/82 11/30/19 18:00 67 13 128/73 11/30/19 17:30 71 13 133/79 11/30/19 17:00 69 15 129/77 11/30/19 16:30 73 18 128/77 11/30/19 16:00 98.4 F 69 70 16 128/79 11/30/19 15:30 70 18 123/73 11/30/19 15:00 80 13 135/82 11/30/19 14:30 79 17 113/70 10/13/20 14:01 94 H 17 126/80 11/30/19 13:30 98 H 19 130/76 Pulse Ox 12/01/19 12:22 94 12/01/19 12:00 92 12/01/19 11:30 91 12/01/19 11:00 87 12/01/19 10:30 86 12/01/19 10:11 12/01/19 10:00 12/01/19 09:35 12/01/19 09:30 93 12/01/19 09:00 92 12/01/19 08:50 94 12/01/19 08:30 91 12/01/19 08:00 90 12/01/19 07:30 89 12/01/19 07:00 91 12/01/19 06:30 93 12/01/19 06:00 93 12/01/19 05:42 12/01/19 05:30 95 12/01/19 05:00 94 12/01/19 04:45 97 12/01/19 04:30 95 12/01/19 04:10 92 12/01/19 04:00 95 12/01/19 03:30 96 12/01/19 03:00 95 12/01/19 02:30 95 12/01/19 02:00 12/01/19 01:30 96 12/01/19 01:00 96 12/01/19 00:30 97 12/01/19 00:06 95 12/01/19 00:00 94 11/30/19 23:35 98 11/30/19 23:30 94 11/30/19 23:00 96 11/30/19 22:42 11/30/19 22:30 95 11/30/19 22:02 11/30/19 22:00 11/30/19 21:59 94 11/30/19 21:30 88 11/30/19 21:00 88 11/30/19 20:31 95 11/30/19 20:18 11/30/19 20:12 92 11/30/19 20:01 94 11/30/19 20:00 11/30/19 19:30 93 11/30/19 19:00 91 11/30/19 18:31 94 11/30/19 18:00 91 11/30/19 17:30 91 11/30/19 17:00 91 11/30/19 16:30 11/30/19 16:00 89 11/30/19 15:30 88 11/30/19 15:00 94 11/30/19 14:30 11/30/19 14:01 95 11/30/19 13:30 97
--- NOTE | 2019-12-01 13:00 | Progress Note ---
Assessment and Plan 49 y/o male with acute respiratory failure, hypercapnic respiratory failure, and likely CHF, preserved EF 1. Echo shows HFpEF diastolic dysfunction. Needs continue diuresis. CXR has cleared. 2. Continue elevated PEEP until FIO2 into the 40's. Now at 40, start to wean PEEP, maybe extubatable in the next 24-48 hours. 3. Agree with BID lasix therapy, needs to continue 4. No current indication for bronch at this time 5. Feed patient, tolerating 6. Needs GI and DVT prophylaxis. 7. Will start to wean steroids, per sister has COPD so will treat as COPD exacerbation. 8. Reached out to ID, waiting to hear back from them. Confused in regards to concern for COVID. in meantime will repeat inflammatory markers. CCT 31 minutes. Subjective Date of service: 12/01/19 Principal diagnosis: Acute respiratory failure with hypoxia Interval history: Down to 40% Fio2. Sats and PaO2 on gas this am are good. Remains sedated. Triglycerides were OK so continue diprovan. ID requesting for repeat COVID as well as IgG for COVID. Objective Vital Signs - 12hr 12/01/19 12/01/19 12/01/19 01:00 01:30 02:00 Temperature Pulse Rate 63 69 61 Pulse Rate [ Anterior Bilateral Throughout] Pulse Rate [ 70 From Monitor] Respiratory 16 16 17 Rate Respiratory Rate [Anterior Bilateral Throughout] Blood Pressure 139/87 124/80 140/87 O2 Sat by Pulse 96 96 Oximetry 12/01/19 12/01/19 12/01/19 02:30 03:00 03:30 Temperature Pulse Rate 64 57 L 55 L Pulse Rate [ Anterior Bilateral Throughout] Pulse Rate [ From Monitor] Respiratory 14 13 22 Rate Respiratory Rate [Anterior Bilateral Throughout] Blood Pressure 140/83 140/84 131/81 O2 Sat by Pulse 95 95 96 Oximetry 12/01/19 12/01/19 12/01/19 04:00 04:10 04:30 Temperature Pulse Rate 55 L 56 L 56 L Pulse Rate [ Anterior Bilateral Throughout] Pulse Rate [ 70 From Monitor] Respiratory 17 18 21 Rate Respiratory Rate [Anterior Bilateral Throughout] Blood Pressure 140/84 145/86 O2 Sat by Pulse 95 92 95 Oximetry 12/01/19 12/01/19 12/01/19 04:45 05:00 05:30 Temperature Pulse Rate 58 L 59 L 61 Pulse Rate [ Anterior Bilateral Throughout] Pulse Rate [ From Monitor] Respiratory 24 20 Rate Respiratory Rate [Anterior Bilateral Throughout] Blood Pressure 137/83 141/83 136/79 O2 Sat by Pulse 97 94 95 Oximetry 12/01/19 12/01/19 12/01/19 05:42 06:00 06:30 Temperature 98.0 F 98.9 F Pulse Rate 71 68 Pulse Rate [ Anterior Bilateral Throughout] Pulse Rate [ From Monitor] Respiratory 15 19 Rate Respiratory Rate [Anterior Bilateral Throughout] Blood Pressure 136/83 125/79 O2 Sat by Pulse 93 93 Oximetry 12/01/19 12/01/19 12/01/19 07:00 07:30 08:00 Temperature 98.0 F Pulse Rate 63 57 L 68 Pulse Rate [ Anterior Bilateral Throughout] Pulse Rate [ From Monitor] Respiratory 15 20 16 Rate Respiratory Rate [Anterior Bilateral Throughout] Blood Pressure 122/78 129/80 132/80 O2 Sat by Pulse 91 89 90 Oximetry 12/01/19 12/01/19 12/01/19 08:30 08:50 09:00 Temperature Pulse Rate 67 90 71 Pulse Rate [ Anterior Bilateral Throughout] Pulse Rate [ From Monitor] Respiratory 22 14 Rate Respiratory Rate [Anterior Bilateral Throughout] Blood Pressure 122/72 118/69 133/79 O2 Sat by Pulse 91 94 92 Oximetry 12/01/19 12/01/19 12/01/19 09:30 09:35 10:00 Temperature Pulse Rate 76 71 84 Pulse Rate [ 83 Anterior Bilateral Throughout] Pulse Rate [ From Monitor] Respiratory 25 H 13 Rate Respiratory 26 H Rate [Anterior Bilateral Throughout] Blood Pressure 136/88 136/88 133/83 O2 Sat by Pulse 93 Oximetry 12/01/19 12/01/19 12/01/19 10:11 10:30 11:00 Temperature Pulse Rate 71 71 70 Pulse Rate [ Anterior Bilateral Throughout] Pulse Rate [ From Monitor] Respiratory 15 18 Rate Respiratory Rate [Anterior Bilateral Throughout] Blood Pressure 133/83 135/78 137/81 O2 Sat by Pulse 86 87 Oximetry 12/01/19 12/01/19 12/01/19 11:30 12:00 12:22 Temperature 98.9 F Pulse Rate 78 68 84 Pulse Rate [ Anterior Bilateral Throughout] Pulse Rate [ From Monitor] Respiratory 15 21 Rate Respiratory Rate [Anterior Bilateral Throughout] Blood Pressure 124/78 129/81 125/80 O2 Sat by Pulse 91 92 94 Oximetry CBC and BMP: 11/28/19 12:36 11/30/19 04:31 ABG, PT/INR, D-dimer: ABG ABG pH 7.411 pH Units (7.350-7.450) 12/01/19 04:16 POC ABG pCO2 61.7 mmHg (32.0-48.0) H 11/30/19 04:40 ABG pCO2 69.0 mm Hg 12/01/19 04:16 POC ABG pO2 86.6 mmHg (83-108) 11/30/19 04:40 ABG pO2 186.5 mm Hg (80.0-90.0) H 12/01/19 04:16 POC ABG HCO3 39.2 11/30/19 04:40 ABG O2 Saturation 99.1 % (95.0-99.0) H 12/01/19 04:16 PT/INR, D-dimer PT 14.6 Sec. (12.2-14.9) 11/27/19 12:08 INR 1.13 (0.87-1.13) 11/27/19 12:08 Abnormal lab findings: Abnormal Labs 11/27/19 11/27/19 11/27/19 11:55 12:08 12:08 WBC Hct 45.8 H MCV 97 H Seg Neuts % (Manual) 76.0 H Lymphocytes % (Manual) 3.0 L Monocytes % (Manual) 17.0 H Nucleated RBC % 1.0 H Seg Neutrophils # Man 7.9 H Lymphocytes # (Manual) 0.3 L Monocytes # (Manual) 1.8 H ABG pH 7.250 L POC ABG pCO2 POC ABG pO2 ABG pO2 61.4 L ABG HCO3 36.5 H ABG O2 Saturation 86.3 L ABG Base Excess 5.9 H ABG Potassium ABG Chloride ABG Glucose Oxyhemoglobin 81.6 L Sodium Potassium 5.5 H Chloride 93.8 L Carbon Dioxide 38 H BUN 75 H Glucose 109 H POC Glucose Calcium 8.3 L Magnesium 3.00 H Ferritin AST 505 H ALT 375 H Lactate Dehydrogenase 408 H C-Reactive Protein 19.50 H NT-Pro-B Natriuret Pep Total Protein Albumin 3.5 L Triglycerides Arterial Blood Glucose Arterial Blood Ionized Calcium Salicylates Acetaminophen 11/27/19 11/27/19 11/27/19 12:08 12:08 12:08 WBC Hct MCV Seg Neuts % (Manual) Lymphocytes % (Manual) Monocytes % (Manual) Nucleated RBC % Seg Neutrophils # Man Lymphocytes # (Manual) Monocytes # (Manual) ABG pH POC ABG pCO2 POC ABG pO2 ABG pO2 ABG HCO3 ABG O2 Saturation ABG Base Excess ABG Potassium ABG Chloride ABG Glucose Oxyhemoglobin Sodium Potassium Chloride Carbon Dioxide BUN Glucose POC Glucose Calcium Magnesium Ferritin 818.7 H AST ALT Lactate Dehydrogenase C-Reactive Protein NT-Pro-B Natriuret Pep Total Protein Albumin Triglycerides Arterial Blood Glucose Arterial Blood Ionized Calcium Salicylates < 0.3 L Acetaminophen 5.0 L 11/27/19 11/27/19 11/28/19 12:22 22:40 01:45 WBC Hct MCV Seg Neuts % (Manual) Lymphocytes % (Manual) Monocytes % (Manual) Nucleated RBC % Seg Neutrophils # Man Lymphocytes # (Manual) Monocytes # (Manual) ABG pH 7.086 L 7.257 L POC ABG pCO2 133.5 H 81.8 H POC ABG pO2 78.4 L 172.6 H ABG pO2 ABG HCO3 ABG O2 Saturation ABG Base Excess ABG Potassium ABG Chloride ABG Glucose Oxyhemoglobin Sodium Potassium Chloride Carbon Dioxide BUN Glucose POC Glucose Calcium Magnesium Ferritin AST ALT Lactate Dehydrogenase C-Reactive Protein NT-Pro-B Natriuret Pep 73114 H Total Protein Albumin Triglycerides Arterial Blood Glucose Arterial Blood Ionized Calcium Salicylates Acetaminophen 11/28/19 11/28/19 11/28/19 05:25 12:36 12:36 WBC 11.3 H Hct MCV 97 H Seg Neuts % (Manual) Lymphocytes % (Manual) Monocytes % (Manual) Nucleated RBC % Seg Neutrophils # Man Lymphocytes # (Manual) Monocytes # (Manual) ABG pH POC ABG pCO2 64.2 H POC ABG pO2 68.1 L ABG pO2 ABG HCO3 ABG O2 Saturation ABG Base Excess ABG Potassium ABG Chloride ABG Glucose Oxyhemoglobin Sodium Potassium 5.4 H Chloride 95.8 L Carbon Dioxide 38 H BUN 46 H Glucose 114 H POC Glucose Calcium 8.0 L Magnesium Ferritin AST 169 H ALT 284 H Lactate Dehydrogenase C-Reactive Protein NT-Pro-B Natriuret Pep Total Protein 5.9 L Albumin 2.9 L Triglycerides Arterial Blood Glucose Arterial Blood Ionized Calcium Salicylates Acetaminophen 11/28/19 11/29/19 11/29/19 15:41 02:42 12:02 WBC Hct MCV Seg Neuts % (Manual) Lymphocytes % (Manual) Monocytes % (Manual) Nucleated RBC % Seg Neutrophils # Man Lymphocytes # (Manual) Monocytes # (Manual) ABG pH POC ABG pCO2 57.2 H POC ABG pO2 80.2 L ABG pO2 ABG HCO3 ABG O2 Saturation ABG Base Excess ABG Potassium 4.6 H ABG Chloride 97.0 L ABG Glucose 131 H Oxyhemoglobin Sodium Potassium Chloride Carbon Dioxide BUN Glucose POC Glucose 122 H 123 H Calcium Magnesium Ferritin AST ALT Lactate Dehydrogenase C-Reactive Protein NT-Pro-B Natriuret Pep Total Protein Albumin Triglycerides Arterial Blood Glucose 131 H Arterial Blood Ionized Calcium 4.1 L Salicylates Acetaminophen 11/29/19 11/29/19 11/30/19 14:48 17:23 04:30 WBC Hct MCV Seg Neuts % (Manual) Lymphocytes % (Manual) Monocytes % (Manual) Nucleated RBC % Seg Neutrophils # Man Lymphocytes # (Manual) Monocytes # (Manual) ABG pH POC ABG pCO2 POC ABG pO2 ABG pO2 ABG HCO3 ABG O2 Saturation ABG Base Excess ABG Potassium ABG Chloride ABG Glucose Oxyhemoglobin Sodium 148 H Potassium Chloride 97.4 L Carbon Dioxide 38 H BUN 51 H Glucose 147 H POC Glucose 127 H Calcium 7.9 L Magnesium Ferritin AST ALT Lactate Dehydrogenase C-Reactive Protein NT-Pro-B Natriuret Pep Total Protein Albumin Triglycerides 216 H Arterial Blood Glucose Arterial Blood Ionized Calcium Salicylates Acetaminophen 11/30/19 11/30/19 11/30/19 04:31 04:40 12:33 WBC Hct MCV Seg Neuts % (Manual) Lymphocytes % (Manual) Monocytes % (Manual) Nucleated RBC % Seg Neutrophils # Man Lymphocytes # (Manual) Monocytes # (Manual) ABG pH POC ABG pCO2 61.7 H POC ABG pO2 ABG pO2 ABG HCO3 ABG O2 Saturation ABG Base Excess ABG Potassium 4.6 H ABG Chloride 97.0 L ABG Glucose 167 H Oxyhemoglobin Sodium Potassium Chloride 96.6 L Carbon Dioxide 37 H BUN 52 H Glucose 173 H POC Glucose 164 H Calcium 8.2 L Magnesium Ferritin AST 86 H ALT 219 H Lactate Dehydrogenase C-Reactive Protein NT-Pro-B Natriuret Pep Total Protein 6.1 L Albumin 3.0 L Triglycerides Arterial Blood Glucose 167 H Arterial Blood Ionized Calcium 4.4 L Salicylates Acetaminophen 11/30/19 12/01/19 12/01/19 18:38 00:26 04:16 WBC Hct MCV Seg Neuts % (Manual) Lymphocytes % (Manual) Monocytes % (Manual) Nucleated RBC % Seg Neutrophils # Man Lymphocytes # (Manual) Monocytes # (Manual) ABG pH POC ABG pCO2 POC ABG pO2 ABG pO2 186.5 H ABG HCO3 42.8 H ABG O2 Saturation 99.1 H ABG Base Excess 14.4 H ABG Potassium ABG Chloride ABG Glucose Oxyhemoglobin Sodium Potassium Chloride Carbon Dioxide BUN Glucose POC Glucose 142 H 158 H Calcium Magnesium Ferritin AST ALT Lactate Dehydrogenase C-Reactive Protein NT-Pro-B Natriuret Pep Total Protein Albumin Triglycerides Arterial Blood Glucose Arterial Blood Ionized Calcium Salicylates Acetaminophen 12/01/19 05:35 WBC Hct MCV Seg Neuts % (Manual) Lymphocytes % (Manual) Monocytes % (Manual) Nucleated RBC % Seg Neutrophils # Man Lymphocytes # (Manual) Monocytes # (Manual) ABG pH POC ABG pCO2 POC ABG pO2 ABG pO2 ABG HCO3 ABG O2 Saturation ABG Base Excess ABG Potassium ABG Chloride ABG Glucose Oxyhemoglobin Sodium Potassium Chloride Carbon Dioxide BUN Glucose POC Glucose 151 H Calcium Magnesium Ferritin AST ALT Lactate Dehydrogenase C-Reactive Protein NT-Pro-B Natriuret Pep Total Protein Albumin Triglycerides Arterial Blood Glucose Arterial Blood Ionized Calcium Salicylates Acetaminophen
--- NOTE | 2019-12-01 14:13 | Progress Note ---
Assessment and Plan Cultures: Blood culture pending SARS CoV2 PCR negative Assessment: 49 years old female with morbid obesity, psychiatric disorder, admitted on 11/27/2019 due to a week history of worsening shortness of breath, cough, generalized weakness, malaise: #Severe sepsis: Present on admission with tachycardia, severe hypoxia likely due to bilateral pneumonia. #Suspect Critical COVID pneumonia: SARS-CoV-2 PCR negative initially. Inflammatory markers, ferritin, CRP and LDH daily elevated. D-dimer pending. Noted elevated BNP #Acute hypoxemic respiratory failure: Initial O2 sat 69%, patient was on BiPAP, now intubated. discussed with Dr. Díaz, most likely secondary to non- compliance with CHF medications and accumulation of fluid. Woul get re-test to ensure infection did not tip him into exacerbations. #Elevated LFTs: Elevated 10 times baseline. From COVID #Morbid obesity: Associated with poor cell counts. Recommendations: -Obtain SARS-CoV-2 PCR retest - was cancelled, pulm will obtain -Dexamethasone 6 mg IV/PO daily for 10 days -Monitor inflammatory markers - ferritin, Ddimer, CRP, LDH. D-dimer is pending -Stopped ceftriaxone/azithromycin -Continue anticoagulation per System Protocol -Prone positioning as possible D/W Dr. Díaz Will follow Rocky Cosby MD [facility] M: [phone] O: [phone] F: [phone] Subjective Date of service: 12/01/19 Principal diagnosis: Acute respiratory failure with hypoxia Interval history: Afebrile, no acute change. Remains on the vent Imaging personally reviewed: Chest x-ray: Clear chest Objective - Exam Narrative Exam: Physical exam deferred due to PPE conservation strategy. Please refer to primary team's note. - Constitutional Vitals: Vital Signs Temp Pulse Resp BP Pulse Ox 98.9 F 71 27 H 135/76 93 12/01/19 12:00 12/01/19 13:00 12/01/19 13:00 12/01/19 13:00 12/01/19 12:31 Temperature -Last 24 Hours Temperature 98.9 F Temperature 98.0 F Temperature 98.9 F Temperature 98.0 F Temperature 99.1 F Temperature 98.0 F Temperature 98.4 F - Labs CBC & Chem 7: 11/28/19 12:36 11/30/19 04:31 Labs: Abnormal lab results 11/30/19 12/01/19 12/01/19 Range/Units 18:38 00:26 04:16 ABG pO2 186.5 H (80.0-90.0) mm Hg ABG HCO3 42.8 H (20.0-26.0) mmol/L ABG O2 Saturation 99.1 H (95.0-99.0) % ABG Base Excess 14.4 H (-2.0-3.0) mmol/L POC Glucose 142 H 158 H (70-105) 12/01/19 Range/Units 05:35 ABG pO2 (80.0-90.0) mm Hg ABG HCO3 (20.0-26.0) mmol/L ABG O2 Saturation (95.0-99.0) % ABG Base Excess (-2.0-3.0) mmol/L POC Glucose 151 H (70-105)
[2019-12-02 04:38] LABS: ABG Base Excess 14.5 mmol/L (-2.0-3.0); ABG HCO3 41.6 mmol/L (20.0-26.0); ABG Methemoglobin 0.6 % (0.0-1.5); ABG Oxygen Saturation 94.4 % (95.0-99.0); ABG PCO2 60.1 mm Hg; ABG PH 7.458 pH Units (7.350-7.450); ABG PO2 66.2 mm Hg (80.0-90.0)
[2019-12-02 05:38] LABS: Hematocrit 47.8 % (35.5-45.6); Hemoglobin 15.8 gm/dl (11.8-15.2); Mean Corpuscular HGB Conc 33 % (32-34); Mean Corpuscular Volume 95 fl (84-94); Platelet Count 201 K/mm3 (140-440); Red Blood Count 5.01 M/mm3 (3.65-5.03); Red Cell Distribution Width 14.4 % (13.2-15.2)
[2019-12-02 05:58] LABS: BUN/Creatinine Ratio 54; Blood Urea Nitrogen 54 mg/dL (9-20); Calcium 8.4 mg/dL (8.4-10.2); Hemolysis Index 5
[2019-12-02] MEDS: HEPARIN 5,000 UNIT/1 ML VIAL SUB-Q SCH (06:09)
[2019-12-02] MEDS: methylPREDNISolone Sod Succinate 125 MG/2 ML INJ IV SCH ×3 (06:11→22:04)
[2019-12-02] MEDS: FUROSEMIDE 40 MG/4 ML INJ IV SCH ×2 (06:12→18:41)
[2019-12-02] MEDS: IPRATROPIUM/ALBUTEROL SULFATE 3 ML AMPUL.NEB IH SCH ×4 (07:39→20:00)
--- NOTE | 2019-12-02 08:05 | Progress Note ---
Assessment and Plan Heart failure with a preserved ejection fraction LVEF 55-60% Acute respiratory failure negative for COVID-19 Elevated LFTs Hx of COPD Hx Psychiatric disorder Continue medical therapy for heart failure with a preserved ejection fraction. Subjective Date of service: 12/02/19 Principal diagnosis: Acute respiratory failure with hypoxia Interval history: Patient remains intubated on the vent. Objective Vital Signs Temp Pulse Pulse Pulse Resp Resp BP 12/02/19 08:00 99.1 F 12/02/19 07:35 82 108/70 12/02/19 06:45 83 21 117/81 12/02/19 06:30 78 26 H 106/74 12/02/19 06:15 79 26 H 103/67 12/02/19 06:00 84 26 H 94/67 12/02/19 05:45 86 26 H 111/69 12/02/19 05:31 85 25 H 101/64 12/02/19 05:15 79 26 H 101/64 12/02/19 05:00 84 20 112/74 12/02/19 04:45 77 26 H 101/65 12/02/19 04:30 82 24 108/70 12/02/19 04:25 74 100/64 12/02/19 04:15 73 27 H 100/64 12/02/19 04:00 98.6 F 73 83 25 H 100/63 12/02/19 03:45 73 26 H 104/68 12/02/19 03:30 72 26 H 104/67 12/02/19 03:15 72 25 H 99/63 12/02/19 03:00 73 27 H 98/62 12/02/19 02:45 71 26 H 102/64 12/02/19 02:30 76 24 103/64 12/02/19 02:15 76 26 H 114/73 12/02/19 02:00 77 27 H 114/73 12/02/19 01:45 80 15 124/79 12/02/19 01:30 78 25 H 116/75 12/02/19 01:15 79 25 H 114/72 12/02/19 01:00 81 27 H 108/69 12/02/19 00:45 82 19 111/67 12/02/19 00:30 81 23 109/68 12/02/19 00:22 80 118/68 10/15/20 00:15 87 14 118/68 12/02/19 00:01 83 25 H 129/80 12/02/19 00:00 98.1 F 83 83 25 H 12/01/19 23:51 84 19 97/75 12/01/19 23:45 83 17 97/75 12/01/19 23:30 87 18 106/70 12/01/19 23:15 86 12 120/66 12/01/19 23:00 82 23 110/72 12/01/19 22:45 87 14 103/65 12/01/19 22:30 87 18 109/69 12/01/19 22:15 86 22 114/71 12/01/19 22:00 83 27 H 109/65 12/01/19 21:45 88 19 106/62 12/01/19 21:30 84 25 H 108/68 12/01/19 21:18 87 110/68 12/01/19 21:15 85 21 110/68 12/01/19 21:00 89 23 95/65 12/01/19 20:45 83 26 H 116/72 12/01/19 20:32 88 85 28 H 105/68 12/01/19 20:30 83 26 H 105/68 12/01/19 20:15 80 26 H 107/65 12/01/19 20:00 98.4 F 88 88 24 108/69 12/01/19 19:45 89 27 H 101/65 12/01/19 19:30 86 20 106/64 12/01/19 19:15 85 26 H 106/64 12/01/19 19:00 88 25 H 108/70 12/01/19 18:45 84 24 107/65 12/01/19 18:30 82 26 H 115/69 12/01/19 18:15 78 18 110/70 12/01/19 18:01 91 H 18 136/80 12/01/19 17:30 76 26 H 106/66 12/01/19 17:00 78 26 H 110/67 12/01/19 16:35 81 28 H 12/01/19 16:30 75 19 106/61 12/01/19 16:04 71 112/69 12/01/19 16:00 98.9 F 75 75 17 112/69 12/01/19 15:30 113/65 12/01/19 15:00 123/77 12/01/19 14:30 72 22 126/72 12/01/19 14:00 83 14 123/76 12/01/19 13:30 75 27 H 124/75 12/01/19 13:00 73 71 18 27 H 135/76 12/01/19 12:31 82 20 130/85 12/01/19 12:22 84 125/80 12/01/19 12:00 98.9 F 69 69 13 129/81 12/01/19 11:30 78 15 124/78 12/01/19 11:00 70 18 137/81 12/01/19 10:30 71 15 135/78 12/01/19 10:11 71 133/83 12/01/19 10:00 84 83 13 26 H 133/83 12/01/19 09:35 71 136/88 12/01/19 09:30 76 25 H 136/88 12/01/19 09:00 71 14 133/79 12/01/19 08:50 90 118/69 12/01/19 08:30 67 22 122/72 Pulse Ox 12/02/19 08:00 12/02/19 07:35 96 12/02/19 06:45 99 12/02/19 06:30 96 12/02/19 06:15 96 12/02/19 06:00 95 12/02/19 05:45 95 12/02/19 05:31 93 12/02/19 05:15 96 12/02/19 05:00 95 12/02/19 04:45 97 12/02/19 04:30 98 12/02/19 04:25 100 12/02/19 04:15 100 12/02/19 04:00 100 12/02/19 03:45 99 12/02/19 03:30 99 12/02/19 03:15 99 12/02/19 03:00 99 12/02/19 02:45 99 12/02/19 02:30 100 12/02/19 02:15 99 12/02/19 02:00 99 12/02/19 01:45 98 12/02/19 01:30 98 12/02/19 01:15 98 12/02/19 01:00 98 12/02/19 00:45 98 12/02/19 00:30 100 12/02/19 00:22 100 12/02/19 00:15 99 12/02/19 00:01 100 12/02/19 00:00 100 12/01/19 23:51 98 12/01/19 23:45 99 12/01/19 23:30 98 12/01/19 23:15 99 12/01/19 23:00 99 12/01/19 22:45 99 12/01/19 22:30 99 12/01/19 22:15 99 12/01/19 22:00 99 12/01/19 21:45 99 12/01/19 21:30 12/01/19 21:18 12/01/19 21:15 93 12/01/19 21:00 91 12/01/19 20:45 12/01/19 20:32 99 12/01/19 20:30 12/01/19 20:15 12/01/19 20:00 92 12/01/19 19:45 91 12/01/19 19:30 92 12/01/19 19:15 91 12/01/19 19:00 12/01/19 18:45 12/01/19 18:30 12/01/19 18:15 92 12/01/19 18:01 99 12/01/19 17:30 12/01/19 17:00 95 12/01/19 16:35 12/01/19 16:30 94 12/01/19 16:04 96 12/01/19 16:00 95 12/01/19 15:30 12/01/19 15:00 12/01/19 14:30 91 12/01/19 14:00 93 12/01/19 13:30 91 12/01/19 13:00 12/01/19 12:31 93 12/01/19 12:22 94 12/01/19 12:00 94 12/01/19 11:30 91 12/01/19 11:00 87 12/01/19 10:30 86 12/01/19 10:11 12/01/19 10:00 12/01/19 09:35 12/01/19 09:30 93 12/01/19 09:00 92 12/01/19 08:50 94 12/01/19 08:30 91 - Physical Examination General: Other (intubated on the vent) HEENT: Positive: Other (DILATED PUPILS) Neck: Positive: neck supple Neuro: Positive: Other (SEDATED) Abdomen: Positive: Unremarkable, Soft Extremities: Present: edema (NO) - Labs and Meds CBC 12/02/19 Range/Units 05:03 WBC 12.2 H (4.5-11.0) K/mm3 RBC 5.01 (3.65-5.03) M/mm3 Hgb 15.8 H (11.8-15.2) gm/dl Hct 47.8 H (35.5-45.6) % Plt Count 201 (140-440) K/mm3 Comprehensive Metabolic Panel 12/02/19 Range/Units 05:03 Sodium 151 H (137-145) mmol/L Potassium 4.6 (3.6-5.0) mmol/L Chloride 98.2 (98-107) mmol/L Carbon Dioxide 40 H (22-30) mmol/L BUN 54 H (9-20) mg/dL Creatinine 1.0 (0.8-1.3) mg/dL Glucose 142 H (75-100) mg/dL Calcium 8.4 (8.4-10.2) mg/dL
--- NOTE | 2019-12-02 09:24 | Progress Note ---
Assessment and Plan 49 y/o male with acute respiratory failure, hypercapnic respiratory failure, and likely CHF, preserved EF 1. Echo shows HFpEF diastolic dysfunction. Needs continue diuresis. CXR has cleared. 2. Continue elevated PEEP until FIO2 into the 40's. Now at 30, start to wean PEEP dropped to 8 this am, maybe extubatable in the next 24-48 hours. 3. Agree with BID lasix therapy, needs to continue 4. No current indication for bronch at this time 5. Feed patient, tolerating 6. Needs GI and DVT prophylaxis. 7. Will start to wean steroids, per sister has COPD so will treat as COPD exacerbation. Will drop down to 20q8 starting tomorrow. 8. Clinically feel suspicion is low for COVID as we have other reasons to explain respiratory failure and CXR has cleared. Will hold on repeat testing 9. Low suspicion for PE as well but will defer to IMS in regards to CT Angio 10. Hopeful extubation soon. CCT 31 minutes. Subjective Date of service: 12/02/19 Principal diagnosis: Acute respiratory failure with hypoxia Interval history: Down to 30% and PEEP of 8. Still with good sats. Remains sedated on Diprovan. Inflammatory markers (at least ferritin and CRP) decreased compared to admission. No D-Dimer was checked previously but was elevated on my check. Objective Vital Signs - 12hr 12/01/19 12/01/19 12/01/19 21:30 21:45 22:00 Temperature Pulse Rate 84 88 83 Pulse Rate [ Anterior Bilateral Throughout] Pulse Rate [ From Monitor] Respiratory 25 H 19 27 H Rate Respiratory Rate [Anterior Bilateral Throughout] Blood Pressure 108/68 106/62 109/65 O2 Sat by Pulse 99 99 Oximetry 12/01/19 12/01/19 12/01/19 22:15 22:30 22:45 Temperature Pulse Rate 86 87 87 Pulse Rate [ Anterior Bilateral Throughout] Pulse Rate [ From Monitor] Respiratory 22 18 14 Rate Respiratory Rate [Anterior Bilateral Throughout] Blood Pressure 114/71 109/69 103/65 O2 Sat by Pulse 99 99 99 Oximetry 12/01/19 12/01/19 12/01/19 23:00 23:15 23:30 Temperature Pulse Rate 82 86 87 Pulse Rate [ Anterior Bilateral Throughout] Pulse Rate [ From Monitor] Respiratory 23 12 18 Rate Respiratory Rate [Anterior Bilateral Throughout] Blood Pressure 110/72 120/66 106/70 O2 Sat by Pulse 99 99 98 Oximetry 12/01/19 12/01/19 12/02/19 23:45 23:51 00:00 Temperature 98.1 F Pulse Rate 83 84 83 Pulse Rate [ Anterior Bilateral Throughout] Pulse Rate [ 83 From Monitor] Respiratory 17 19 25 H Rate Respiratory Rate [Anterior Bilateral Throughout] Blood Pressure 97/75 97/75 O2 Sat by Pulse 99 98 100 Oximetry 12/02/19 12/02/19 12/02/19 00:01 00:15 00:22 Temperature Pulse Rate 83 87 80 Pulse Rate [ Anterior Bilateral Throughout] Pulse Rate [ From Monitor] Respiratory 25 H 14 Rate Respiratory Rate [Anterior Bilateral Throughout] Blood Pressure 129/80 118/68 118/68 O2 Sat by Pulse 100 99 100 Oximetry 12/02/19 12/02/19 12/02/19 00:30 00:45 01:00 Temperature Pulse Rate 81 82 81 Pulse Rate [ Anterior Bilateral Throughout] Pulse Rate [ From Monitor] Respiratory 23 19 27 H Rate Respiratory Rate [Anterior Bilateral Throughout] Blood Pressure 109/68 111/67 108/69 O2 Sat by Pulse 100 98 98 Oximetry 12/02/19 12/02/19 12/02/19 01:15 01:30 01:45 Temperature Pulse Rate 79 78 80 Pulse Rate [ Anterior Bilateral Throughout] Pulse Rate [ From Monitor] Respiratory 25 H 25 H 15 Rate Respiratory Rate [Anterior Bilateral Throughout] Blood Pressure 114/72 116/75 124/79 O2 Sat by Pulse 98 98 98 Oximetry 12/02/19 12/02/19 12/02/19 02:00 02:15 02:30 Temperature Pulse Rate 77 76 76 Pulse Rate [ Anterior Bilateral Throughout] Pulse Rate [ From Monitor] Respiratory 27 H 26 H 24 Rate Respiratory Rate [Anterior Bilateral Throughout] Blood Pressure 114/73 114/73 103/64 O2 Sat by Pulse 99 99 100 Oximetry 12/02/19 12/02/19 12/02/19 02:45 03:00 03:15 Temperature Pulse Rate 71 73 72 Pulse Rate [ Anterior Bilateral Throughout] Pulse Rate [ From Monitor] Respiratory 26 H 27 H 25 H Rate Respiratory Rate [Anterior Bilateral Throughout] Blood Pressure 102/64 98/62 99/63 O2 Sat by Pulse 99 99 99 Oximetry 12/02/19 12/02/19 12/02/19 03:30 03:45 04:00 Temperature 98.6 F Pulse Rate 72 73 73 Pulse Rate [ Anterior Bilateral Throughout] Pulse Rate [ 83 From Monitor] Respiratory 26 H 26 H 25 H Rate Respiratory Rate [Anterior Bilateral Throughout] Blood Pressure 104/67 104/68 100/63 O2 Sat by Pulse 99 99 100 Oximetry 12/02/19 12/02/19 12/02/19 04:15 04:25 04:30 Temperature Pulse Rate 73 74 82 Pulse Rate [ Anterior Bilateral Throughout] Pulse Rate [ From Monitor] Respiratory 27 H 24 Rate Respiratory Rate [Anterior Bilateral Throughout] Blood Pressure 100/64 100/64 108/70 O2 Sat by Pulse 100 100 98 Oximetry 12/02/19 12/02/19 12/02/19 04:45 05:00 05:15 Temperature Pulse Rate 77 84 79 Pulse Rate [ Anterior Bilateral Throughout] Pulse Rate [ From Monitor] Respiratory 26 H 20 26 H Rate Respiratory Rate [Anterior Bilateral Throughout] Blood Pressure 101/65 112/74 101/64 O2 Sat by Pulse 97 95 96 Oximetry 12/02/19 12/02/19 12/02/19 05:31 05:45 06:00 Temperature Pulse Rate 85 86 84 Pulse Rate [ Anterior Bilateral Throughout] Pulse Rate [ From Monitor] Respiratory 25 H 26 H 26 H Rate Respiratory Rate [Anterior Bilateral Throughout] Blood Pressure 101/64 111/69 94/67 O2 Sat by Pulse 93 95 95 Oximetry 12/02/19 12/02/19 12/02/19 06:15 06:30 06:45 Temperature Pulse Rate 79 78 83 Pulse Rate [ Anterior Bilateral Throughout] Pulse Rate [ From Monitor] Respiratory 26 H 26 H 21 Rate Respiratory Rate [Anterior Bilateral Throughout] Blood Pressure 103/67 106/74 117/81 O2 Sat by Pulse 96 96 99 Oximetry 12/02/19 12/02/19 12/02/19 07:00 07:15 07:30 Temperature Pulse Rate 89 80 88 Pulse Rate [ Anterior Bilateral Throughout] Pulse Rate [ From Monitor] Respiratory 27 H 26 H 22 Rate Respiratory Rate [Anterior Bilateral Throughout] Blood Pressure 103/66 105/70 108/70 O2 Sat by Pulse 96 97 98 Oximetry 12/02/19 12/02/19 12/02/19 07:35 07:45 08:00 Temperature 99.1 F Pulse Rate 82 90 85 Pulse Rate [ Anterior Bilateral Throughout] Pulse Rate [ 85 From Monitor] Respiratory 18 19 Rate Respiratory Rate [Anterior Bilateral Throughout] Blood Pressure 108/70 108/78 119/82 O2 Sat by Pulse 96 95 96 Oximetry 12/02/19 12/02/19 12/02/19 08:05 08:15 08:30 Temperature Pulse Rate 84 83 Pulse Rate [ 81 Anterior Bilateral Throughout] Pulse Rate [ From Monitor] Respiratory 21 27 H Rate Respiratory 26 H Rate [Anterior Bilateral Throughout] Blood Pressure 102/70 107/64 O2 Sat by Pulse 94 97 Oximetry 12/02/19 12/02/19 08:45 09:00 Temperature Pulse Rate 84 82 Pulse Rate [ Anterior Bilateral Throughout] Pulse Rate [ From Monitor] Respiratory 26 H 26 H Rate Respiratory Rate [Anterior Bilateral Throughout] Blood Pressure 96/65 101/64 O2 Sat by Pulse 95 91 Oximetry Constitutional: comatose (secondary to induction with diprovan) Eyes: non-icteric ENT: other (orally intubated and sedated) Neck: supple Effort: normal Ascultation: Bilateral: clear, diminished breath sounds Percussion: Bilateral: not dull Cardiovascular: regular rate and rhythm Gastrointestinal: normoactive bowel sounds, soft Neurologic: unable to assess CBC and BMP: 12/02/19 05:03 12/02/19 05:03 ABG, PT/INR, D-dimer: ABG ABG pH 7.458 pH Units (7.350-7.450) H 12/02/19 04:08 POC ABG pCO2 61.7 mmHg (32.0-48.0) H 11/30/19 04:40 ABG pCO2 60.1 mm Hg 12/02/19 04:08 POC ABG pO2 86.6 mmHg (83-108) 11/30/19 04:40 ABG pO2 66.2 mm Hg (80.0-90.0) L 12/02/19 04:08 POC ABG HCO3 39.2 11/30/19 04:40 ABG O2 Saturation 94.4 % (95.0-99.0) L 12/02/19 04:08 PT/INR, D-dimer PT 14.6 Sec. (12.2-14.9) 11/27/19 12:08 INR 1.13 (0.87-1.13) 11/27/19 12:08 D-Dimer 2939.43 ng/mlDDU (0-234) H 12/01/19 14:29 Abnormal lab findings: Abnormal Labs 11/27/19 11/27/19 11/27/19 11:55 12:08 12:08 WBC Hgb Hct 45.8 H MCV 97 H Seg Neuts % (Manual) 76.0 H Lymphocytes % (Manual) 3.0 L Monocytes % (Manual) 17.0 H Nucleated RBC % 1.0 H Seg Neutrophils # Man 7.9 H Lymphocytes # (Manual) 0.3 L Monocytes # (Manual) 1.8 H D-Dimer ABG pH 7.250 L POC ABG pCO2 POC ABG pO2 ABG pO2 61.4 L ABG HCO3 36.5 H ABG O2 Saturation 86.3 L ABG Base Excess 5.9 H ABG Potassium ABG Chloride ABG Glucose Oxyhemoglobin 81.6 L Sodium Potassium 5.5 H Chloride 93.8 L Carbon Dioxide 38 H BUN 75 H Glucose 109 H POC Glucose Calcium 8.3 L Magnesium 3.00 H Ferritin AST 505 H ALT 375 H Lactate Dehydrogenase 408 H C-Reactive Protein 19.50 H NT-Pro-B Natriuret Pep Total Protein Albumin 3.5 L Triglycerides Arterial Blood Glucose Arterial Blood Ionized Calcium Salicylates Acetaminophen 11/27/19 11/27/19 11/27/19 12:08 12:08 12:08 WBC Hgb Hct MCV Seg Neuts % (Manual) Lymphocytes % (Manual) Monocytes % (Manual) Nucleated RBC % Seg Neutrophils # Man Lymphocytes # (Manual) Monocytes # (Manual) D-Dimer ABG pH POC ABG pCO2 POC ABG pO2 ABG pO2 ABG HCO3 ABG O2 Saturation ABG Base Excess ABG Potassium ABG Chloride ABG Glucose Oxyhemoglobin Sodium Potassium Chloride Carbon Dioxide BUN Glucose POC Glucose Calcium Magnesium Ferritin 818.7 H AST ALT Lactate Dehydrogenase C-Reactive Protein NT-Pro-B Natriuret Pep Total Protein Albumin Triglycerides Arterial Blood Glucose Arterial Blood Ionized Calcium Salicylates < 0.3 L Acetaminophen 5.0 L 11/27/19 11/27/19 11/28/19 12:22 22:40 01:45 WBC Hgb Hct MCV Seg Neuts % (Manual) Lymphocytes % (Manual) Monocytes % (Manual) Nucleated RBC % Seg Neutrophils # Man Lymphocytes # (Manual) Monocytes # (Manual) D-Dimer ABG pH 7.086 L 7.257 L POC ABG pCO2 133.5 H 81.8 H POC ABG pO2 78.4 L 172.6 H ABG pO2 ABG HCO3 ABG O2 Saturation ABG Base Excess ABG Potassium ABG Chloride ABG Glucose Oxyhemoglobin Sodium Potassium Chloride Carbon Dioxide BUN Glucose POC Glucose Calcium Magnesium Ferritin AST ALT Lactate Dehydrogenase C-Reactive Protein NT-Pro-B Natriuret Pep 44566 H Total Protein Albumin Triglycerides Arterial Blood Glucose Arterial Blood Ionized Calcium Salicylates Acetaminophen 11/28/19 11/28/19 11/28/19 05:25 12:36 12:36 WBC 11.3 H Hgb Hct MCV 97 H Seg Neuts % (Manual) Lymphocytes % (Manual) Monocytes % (Manual) Nucleated RBC % Seg Neutrophils # Man Lymphocytes # (Manual) Monocytes # (Manual) D-Dimer ABG pH POC ABG pCO2 64.2 H POC ABG pO2 68.1 L ABG pO2 ABG HCO3 ABG O2 Saturation ABG Base Excess ABG Potassium ABG Chloride ABG Glucose Oxyhemoglobin Sodium Potassium 5.4 H Chloride 95.8 L Carbon Dioxide 38 H BUN 46 H Glucose 114 H POC Glucose Calcium 8.0 L Magnesium Ferritin AST 169 H ALT 284 H Lactate Dehydrogenase C-Reactive Protein NT-Pro-B Natriuret Pep Total Protein 5.9 L Albumin 2.9 L Triglycerides Arterial Blood Glucose Arterial Blood Ionized Calcium Salicylates Acetaminophen 11/28/19 11/29/19 11/29/19 15:41 02:42 12:02 WBC Hgb Hct MCV Seg Neuts % (Manual) Lymphocytes % (Manual) Monocytes % (Manual) Nucleated RBC % Seg Neutrophils # Man Lymphocytes # (Manual) Monocytes # (Manual) D-Dimer ABG pH POC ABG pCO2 57.2 H POC ABG pO2 80.2 L ABG pO2 ABG HCO3 ABG O2 Saturation ABG Base Excess ABG Potassium 4.6 H ABG Chloride 97.0 L ABG Glucose 131 H Oxyhemoglobin Sodium Potassium Chloride Carbon Dioxide BUN Glucose POC Glucose 122 H 123 H Calcium Magnesium Ferritin AST ALT Lactate Dehydrogenase C-Reactive Protein NT-Pro-B Natriuret Pep Total Protein Albumin Triglycerides Arterial Blood Glucose 131 H Arterial Blood Ionized Calcium 4.1 L Salicylates Acetaminophen 11/29/19 11/29/19 11/30/19 14:48 17:23 04:30 WBC Hgb Hct MCV Seg Neuts % (Manual) Lymphocytes % (Manual) Monocytes % (Manual) Nucleated RBC % Seg Neutrophils # Man Lymphocytes # (Manual) Monocytes # (Manual) D-Dimer ABG pH POC ABG pCO2 POC ABG pO2 ABG pO2 ABG HCO3 ABG O2 Saturation ABG Base Excess ABG Potassium ABG Chloride ABG Glucose Oxyhemoglobin Sodium 148 H Potassium Chloride 97.4 L Carbon Dioxide 38 H BUN 51 H Glucose 147 H POC Glucose 127 H Calcium 7.9 L Magnesium Ferritin AST ALT Lactate Dehydrogenase C-Reactive Protein NT-Pro-B Natriuret Pep Total Protein Albumin Triglycerides 216 H Arterial Blood Glucose Arterial Blood Ionized Calcium Salicylates Acetaminophen 11/30/19 11/30/19 11/30/19 04:31 04:40 12:33 WBC Hgb Hct MCV Seg Neuts % (Manual) Lymphocytes % (Manual) Monocytes % (Manual) Nucleated RBC % Seg Neutrophils # Man Lymphocytes # (Manual) Monocytes # (Manual) D-Dimer ABG pH POC ABG pCO2 61.7 H POC ABG pO2 ABG pO2 ABG HCO3 ABG O2 Saturation ABG Base Excess ABG Potassium 4.6 H ABG Chloride 97.0 L ABG Glucose 167 H Oxyhemoglobin Sodium Potassium Chloride 96.6 L Carbon Dioxide 37 H BUN 52 H Glucose 173 H POC Glucose 164 H Calcium 8.2 L Magnesium Ferritin AST 86 H ALT 219 H Lactate Dehydrogenase C-Reactive Protein NT-Pro-B Natriuret Pep Total Protein 6.1 L Albumin 3.0 L Triglycerides Arterial Blood Glucose 167 H Arterial Blood Ionized Calcium 4.4 L Salicylates Acetaminophen 11/30/19 12/01/19 12/01/19 18:38 00:26 04:16 WBC Hgb Hct MCV Seg Neuts % (Manual) Lymphocytes % (Manual) Monocytes % (Manual) Nucleated RBC % Seg Neutrophils # Man Lymphocytes # (Manual) Monocytes # (Manual) D-Dimer ABG pH POC ABG pCO2 POC ABG pO2 ABG pO2 186.5 H ABG HCO3 42.8 H ABG O2 Saturation 99.1 H ABG Base Excess 14.4 H ABG Potassium ABG Chloride ABG Glucose Oxyhemoglobin Sodium Potassium Chloride Carbon Dioxide BUN Glucose POC Glucose 142 H 158 H Calcium Magnesium Ferritin AST ALT Lactate Dehydrogenase C-Reactive Protein NT-Pro-B Natriuret Pep Total Protein Albumin Triglycerides Arterial Blood Glucose Arterial Blood Ionized Calcium Salicylates Acetaminophen 12/01/19 12/01/19 12/01/19 05:35 12:17 14:29 WBC Hgb Hct MCV Seg Neuts % (Manual) Lymphocytes % (Manual) Monocytes % (Manual) Nucleated RBC % Seg Neutrophils # Man Lymphocytes # (Manual) Monocytes # (Manual) D-Dimer 2939.43 H ABG pH POC ABG pCO2 POC ABG pO2 ABG pO2 ABG HCO3 ABG O2 Saturation ABG Base Excess ABG Potassium ABG Chloride ABG Glucose Oxyhemoglobin Sodium Potassium Chloride Carbon Dioxide BUN Glucose POC Glucose 151 H 191 H Calcium Magnesium Ferritin AST ALT Lactate Dehydrogenase C-Reactive Protein NT-Pro-B Natriuret Pep Total Protein Albumin Triglycerides Arterial Blood Glucose Arterial Blood Ionized Calcium Salicylates Acetaminophen 12/01/19 12/01/19 12/01/19 14:29 14:29 17:59 WBC Hgb Hct MCV Seg Neuts % (Manual) Lymphocytes % (Manual) Monocytes % (Manual) Nucleated RBC % Seg Neutrophils # Man Lymphocytes # (Manual) Monocytes # (Manual) D-Dimer ABG pH POC ABG pCO2 POC ABG pO2 ABG pO2 ABG HCO3 ABG O2 Saturation ABG Base Excess ABG Potassium ABG Chloride ABG Glucose Oxyhemoglobin Sodium Potassium Chloride Carbon Dioxide BUN Glucose POC Glucose 147 H Calcium Magnesium Ferritin 369.3 H AST ALT Lactate Dehydrogenase C-Reactive Protein 2.60 H NT-Pro-B Natriuret Pep Total Protein Albumin Triglycerides Arterial Blood Glucose Arterial Blood Ionized Calcium Salicylates Acetaminophen 12/01/19 12/02/19 12/02/19 23:58 04:08 05:03 WBC 12.2 H Hgb 15.8 H Hct 47.8 H MCV 95 H Seg Neuts % (Manual) Lymphocytes % (Manual) Monocytes % (Manual) Nucleated RBC % Seg Neutrophils # Man Lymphocytes # (Manual) Monocytes # (Manual) D-Dimer ABG pH 7.458 H POC ABG pCO2 POC ABG pO2 ABG pO2 66.2 L ABG HCO3 41.6 H ABG O2 Saturation 94.4 L ABG Base Excess 14.5 H ABG Potassium ABG Chloride ABG Glucose Oxyhemoglobin 92.4 L Sodium Potassium Chloride Carbon Dioxide BUN Glucose POC Glucose 126 H Calcium Magnesium Ferritin AST ALT Lactate Dehydrogenase C-Reactive Protein NT-Pro-B Natriuret Pep Total Protein Albumin Triglycerides Arterial Blood Glucose Arterial Blood Ionized Calcium Salicylates Acetaminophen 12/02/19 12/02/19 05:03 05:36 WBC Hgb Hct MCV Seg Neuts % (Manual) Lymphocytes % (Manual) Monocytes % (Manual) Nucleated RBC % Seg Neutrophils # Man Lymphocytes # (Manual) Monocytes # (Manual) D-Dimer ABG pH POC ABG pCO2 POC ABG pO2 ABG pO2 ABG HCO3 ABG O2 Saturation ABG Base Excess ABG Potassium ABG Chloride ABG Glucose Oxyhemoglobin Sodium 151 H Potassium Chloride Carbon Dioxide 40 H BUN 54 H Glucose 142 H POC Glucose 136 H Calcium Magnesium Ferritin AST ALT Lactate Dehydrogenase C-Reactive Protein NT-Pro-B Natriuret Pep Total Protein Albumin Triglycerides Arterial Blood Glucose Arterial Blood Ionized Calcium Salicylates Acetaminophen
[2019-12-02] MEDS: VALPROIC ACID 250 MG/5 ML ORAL LIQD FEEDTUBE SCH ×2 (10:20→22:14)
[2019-12-02] MEDS: carvediloL 3.125 MG TAB PO SCH ×2 (10:21→22:05)
[2019-12-02] MEDS: FAMOTIDINE 20 MG TAB PO SCH ×2 (10:21→22:03)
[2019-12-02] MEDS: ENOXAPARIN 150 MG/1 ML INJ SUB-Q SCH ×2 (10:22→22:03)
[2019-12-02] MEDS: LISINOPRIL 5 MG TAB PO SCH (10:22)
--- NOTE | 2019-12-02 10:23 | Cat Scan Report ---
CTA CHEST WITH CONTRAST INDICATION : Pulmonary embolism. TECHNIQUE: Axial imaging performed through the chest, with contrast bolus timing set to maximize opa cification of the pulmonary arteries. Sagittal and coronal reformatted images. 3-plane MIP reformatte d images were obtained. All CT scans at this location are performed using CT dose reduction for ALAR A by means of automated exposure control. 100 mL of intravenous contrast administered. COMPARISON: None FINDINGS: Bolus: Contrast bolus timing is adequate. PTE: Nonocclusive pulmonary emboli are identified in the second and third order branches leading to the left upper lobe and left lower lobe. Mediastinum: Heart and great vessels appear normal. No pathologic mediastinal adenopathy. Endotrach eal tube and nasogastric tube are in position. Lungs: There is mild linear scarring or atelectasis in the anterior right upper lobe. Otherwise, the lungs are clear. No evidence for mass lesion, infiltrate, pleural fluid or pneumothorax. Bones: Degenerative changes in the spine with nothing acute. Upper abdomen: Limited imaging of the upper abdomen shows nothing acute. IMPRESSION: Positive for pulmonary emboli as described. Critical result discovered at 1012 hours EST and called to Kris Sullivan at 1017 hours on 11/02/2019. A read back was performed. Signer Name: Curtis Sheehan Jr, MD Signed: 12/02/2019 10:18 AM Workstation Name: [id number]
--- NOTE | 2019-12-02 16:32 | Progress Note ---
Assessment and Plan Cultures: Blood culture pending SARS CoV2 PCR negative Assessment: 49 years old female with morbid obesity, psychiatric disorder, admitted on 11/27/2019 due to a week history of worsening shortness of breath, cough, generalized weakness, malaise: #Severe sepsis: Present on admission with tachycardia, severe hypoxia likely due to bilateral pneumonia. #Suspect Critical COVID pneumonia: SARS-CoV-2 PCR negative initially. Inflammatory markers, ferritin, CRP and LDH daily elevated. D-dimer pending. Noted elevated BNP #Acute hypoxemic respiratory failure: Initial O2 sat 69%, patient was on BiPAP, now intubated. discussed with Dr. Díaz, most likely secondary to non- compliance with CHF medications and accumulation of fluid. Woul get re-test to ensure infection did not tip him into exacerbations. #Elevated LFTs: Elevated 10 times baseline. From COVID #Morbid obesity: Associated with poor cell counts. Recommendations: -Obtain SARS-CoV-2 PCR retest - was cancelled, pulm will obtain -Dexamethasone 6 mg IV/PO daily for 10 days -Monitor inflammatory markers - ferritin, Ddimer, CRP, LDH. D-dimer is pending -Continue anticoagulation per System Protocol Will follow Rocky Cosby MD [facility] ([facility] M: [phone] O: [phone] F: [phone] Subjective Date of service: 12/02/19 Principal diagnosis: Acute respiratory failure with hypoxia Interval history: Afebrile, white count 12.2 Objective - Exam Narrative Exam: Physical exam deferred due to PPE conservation strategy. Please refer to primary team's note. - Constitutional Vitals: Vital Signs Temp Pulse Resp BP Pulse Ox 98.1 F 84 16 111/75 93 12/02/19 12:00 12/02/19 16:00 12/02/19 16:00 12/02/19 16:00 12/02/19 16:00 Temperature -Last 24 Hours Temperature 98.1 F Temperature 99.1 F Temperature 98.6 F Temperature 98.1 F Temperature 98.4 F - Labs CBC & Chem 7: 12/02/19 05:03 12/02/19 05:03 Labs: Abnormal lab results 12/01/19 12/01/19 12/01/19 Range/Units 12:17 17:59 23:58 WBC (4.5-11.0) K/mm3 Hgb (11.8-15.2) gm/dl Hct (35.5-45.6) % MCV (84-94) fl ABG pH (7.350-7.450) pH Units ABG pO2 (80.0-90.0) mm Hg ABG HCO3 (20.0-26.0) mmol/L ABG O2 Saturation (95.0-99.0) % ABG Base Excess (-2.0-3.0) mmol/L Oxyhemoglobin (95.0-99.0) % Sodium (137-145) mmol/L Carbon Dioxide (22-30) mmol/L BUN (9-20) mg/dL Glucose (75-100) mg/dL POC Glucose 191 H 147 H 126 H (70-105) 12/02/19 12/02/19 12/02/19 Range/Units 04:08 05:03 05:03 WBC 12.2 H (4.5-11.0) K/mm3 Hgb 15.8 H (11.8-15.2) gm/dl Hct 47.8 H (35.5-45.6) % MCV 95 H (84-94) fl ABG pH 7.458 H (7.350-7.450) pH Units ABG pO2 66.2 L (80.0-90.0) mm Hg ABG HCO3 41.6 H (20.0-26.0) mmol/L ABG O2 Saturation 94.4 L (95.0-99.0) % ABG Base Excess 14.5 H (-2.0-3.0) mmol/L Oxyhemoglobin 92.4 L (95.0-99.0) % Sodium 151 H (137-145) mmol/L Carbon Dioxide 40 H (22-30) mmol/L BUN 54 H (9-20) mg/dL Glucose 142 H (75-100) mg/dL POC Glucose (70-105) 12/02/19 Range/Units 05:36 WBC (4.5-11.0) K/mm3 Hgb (11.8-15.2) gm/dl Hct (35.5-45.6) % MCV (84-94) fl ABG pH (7.350-7.450) pH Units ABG pO2 (80.0-90.0) mm Hg ABG HCO3 (20.0-26.0) mmol/L ABG O2 Saturation (95.0-99.0) % ABG Base Excess (-2.0-3.0) mmol/L Oxyhemoglobin (95.0-99.0) % Sodium (137-145) mmol/L Carbon Dioxide (22-30) mmol/L BUN (9-20) mg/dL Glucose (75-100) mg/dL POC Glucose 136 H (70-105)
[2019-12-03] MEDS: FUROSEMIDE 40 MG/4 ML INJ IV SCH ×2 (05:36→18:18)
[2019-12-03] MEDS: methylPREDNISolone Sod Succinate 125 MG/2 ML INJ IV SCH ×3 (05:36→21:44)
[2019-12-03] MEDS: IPRATROPIUM/ALBUTEROL SULFATE 3 ML AMPUL.NEB IH SCH ×4 (07:48→20:29)
--- NOTE | 2019-12-03 09:02 | Progress Note ---
Assessment and Plan 49 y/o male with acute respiratory failure, hypercapnic respiratory failure, and likely CHF, preserved EF 1. Extubated now. 2. Bipap QHS and PRN, currently on HFNC 3. Agree with BID lasix therapy, needs to continue, even extubated. 4. No current indication for bronch at this time 5. Bedside Swallow eval later this morning. 6. Needs GI and DVT prophylaxis. 7. Will drop down to q8 dosing and 20mg today. 8. Patient found to have PE, started on BID lovenox, can switch to orals once tolerating PO 9. Will monitor in unit for today, remains stable transfer to [facility] tomorrow. could go later today if bed is needed. CCT 31 minutes. Subjective Date of service: 12/03/19 Principal diagnosis: Acute respiratory failure with hypoxia Interval history: Awake and alert, agitated this am. Ordered extubation around 0700. doing well w ith it so far. Requesting water. Objective Vital Signs - 12hr 12/02/19 12/02/19 12/02/19 21:00 21:15 21:30 Temperature Pulse Rate 85 88 93 H Pulse Rate [ Anterior Bilateral Throughout] Pulse Rate [ From Monitor] Respiratory 20 14 21 Rate Respiratory Rate [Anterior Bilateral Throughout] Blood Pressure 127/78 108/77 108/64 O2 Sat by Pulse 96 96 97 Oximetry 12/02/19 12/02/19 12/02/19 21:45 22:00 22:05 Temperature Pulse Rate 94 H 96 H 95 H Pulse Rate [ Anterior Bilateral Throughout] Pulse Rate [ From Monitor] Respiratory 18 24 Rate Respiratory Rate [Anterior Bilateral Throughout] Blood Pressure 108/64 103/71 103/71 O2 Sat by Pulse 95 90 Oximetry 12/02/19 12/02/19 12/02/19 22:15 22:30 22:45 Temperature Pulse Rate 88 84 85 Pulse Rate [ Anterior Bilateral Throughout] Pulse Rate [ From Monitor] Respiratory 26 H 26 H 26 H Rate Respiratory Rate [Anterior Bilateral Throughout] Blood Pressure 101/65 100/65 102/67 O2 Sat by Pulse 91 91 92 Oximetry 12/02/19 12/02/19 12/02/19 23:00 23:13 23:15 Temperature Pulse Rate 83 87 84 Pulse Rate [ Anterior Bilateral Throughout] Pulse Rate [ From Monitor] Respiratory 27 H 26 H 26 H Rate Respiratory Rate [Anterior Bilateral Throughout] Blood Pressure 99/67 102/67 102/69 O2 Sat by Pulse 94 93 93 Oximetry 12/02/19 12/02/19 12/03/19 23:30 23:45 00:00 Temperature 97.5 F L Pulse Rate 84 77 75 Pulse Rate [ Anterior Bilateral Throughout] Pulse Rate [ 75 From Monitor] Respiratory 26 H 26 H 26 H Rate Respiratory Rate [Anterior Bilateral Throughout] Blood Pressure 100/70 104/72 104/74 O2 Sat by Pulse 94 94 94 Oximetry 12/03/19 12/03/19 12/03/19 00:15 00:30 00:45 Temperature Pulse Rate 73 72 72 Pulse Rate [ Anterior Bilateral Throughout] Pulse Rate [ From Monitor] Respiratory 26 H 26 H 26 H Rate Respiratory Rate [Anterior Bilateral Throughout] Blood Pressure 104/71 104/71 106/72 O2 Sat by Pulse 93 93 91 Oximetry 12/03/19 12/03/19 12/03/19 01:00 01:15 01:30 Temperature Pulse Rate 70 72 73 Pulse Rate [ Anterior Bilateral Throughout] Pulse Rate [ From Monitor] Respiratory 26 H 26 H 26 H Rate Respiratory Rate [Anterior Bilateral Throughout] Blood Pressure 109/74 103/71 107/75 O2 Sat by Pulse 93 91 95 Oximetry 12/03/19 12/03/19 12/03/19 01:45 02:00 02:15 Temperature Pulse Rate 72 71 69 Pulse Rate [ Anterior Bilateral Throughout] Pulse Rate [ From Monitor] Respiratory 26 H 26 H 26 H Rate Respiratory Rate [Anterior Bilateral Throughout] Blood Pressure 101/71 105/72 106/74 O2 Sat by Pulse 95 95 95 Oximetry 12/03/19 12/03/19 12/03/19 02:30 02:45 03:00 Temperature Pulse Rate 71 72 72 Pulse Rate [ Anterior Bilateral Throughout] Pulse Rate [ From Monitor] Respiratory 26 H 26 H 26 H Rate Respiratory Rate [Anterior Bilateral Throughout] Blood Pressure 107/74 105/76 109/76 O2 Sat by Pulse 95 95 95 Oximetry 12/03/19 12/03/19 12/03/19 03:15 03:30 03:37 Temperature Pulse Rate 74 76 73 Pulse Rate [ Anterior Bilateral Throughout] Pulse Rate [ From Monitor] Respiratory 26 H 26 H Rate Respiratory Rate [Anterior Bilateral Throughout] Blood Pressure 102/73 105/74 O2 Sat by Pulse 94 94 95 Oximetry 12/03/19 12/03/19 12/03/19 03:45 04:00 04:15 Temperature 99.3 F Pulse Rate 75 74 74 Pulse Rate [ Anterior Bilateral Throughout] Pulse Rate [ 74 From Monitor] Respiratory 26 H 26 H 26 H Rate Respiratory Rate [Anterior Bilateral Throughout] Blood Pressure 123/85 106/74 103/72 O2 Sat by Pulse 93 95 95 Oximetry 12/03/19 12/03/19 12/03/19 04:30 04:45 05:00 Temperature Pulse Rate 75 75 75 Pulse Rate [ Anterior Bilateral Throughout] Pulse Rate [ From Monitor] Respiratory 26 H 26 H 26 H Rate Respiratory Rate [Anterior Bilateral Throughout] Blood Pressure 100/70 104/73 105/71 O2 Sat by Pulse 95 94 94 Oximetry 12/03/19 12/03/19 12/03/19 05:15 05:30 05:45 Temperature Pulse Rate 73 75 73 Pulse Rate [ Anterior Bilateral Throughout] Pulse Rate [ From Monitor] Respiratory 26 H 26 H 26 H Rate Respiratory Rate [Anterior Bilateral Throughout] Blood Pressure 105/74 107/77 109/80 O2 Sat by Pulse 94 93 94 Oximetry 12/03/19 12/03/19 12/03/19 06:00 06:15 06:30 Temperature Pulse Rate 75 78 84 Pulse Rate [ Anterior Bilateral Throughout] Pulse Rate [ From Monitor] Respiratory 26 H 25 H 20 Rate Respiratory Rate [Anterior Bilateral Throughout] Blood Pressure 115/84 122/86 110/86 O2 Sat by Pulse 94 93 94 Oximetry 12/03/19 12/03/19 12/03/19 06:45 07:00 07:15 Temperature Pulse Rate 78 83 83 Pulse Rate [ Anterior Bilateral Throughout] Pulse Rate [ From Monitor] Respiratory 14 21 18 Rate Respiratory Rate [Anterior Bilateral Throughout] Blood Pressure 111/79 115/75 114/83 O2 Sat by Pulse 94 90 91 Oximetry 12/03/19 12/03/19 12/03/19 07:30 08:13 08:51 Temperature Pulse Rate 80 Pulse Rate [ 81 Anterior Bilateral Throughout] Pulse Rate [ From Monitor] Respiratory 22 Rate Respiratory 26 H Rate [Anterior Bilateral Throughout] Blood Pressure 117/80 O2 Sat by Pulse 90 93 Oximetry Constitutional: comatose (secondary to induction with diprovan) Eyes: non-icteric ENT: other (orally intubated and sedated) Neck: supple Effort: normal Ascultation: Bilateral: clear, diminished breath sounds Percussion: Bilateral: not dull Cardiovascular: regular rate and rhythm Gastrointestinal: normoactive bowel sounds, soft Neurologic: unable to assess CBC and BMP: 12/02/19 05:03 12/02/19 05:03 ABG, PT/INR, D-dimer: ABG ABG pH 7.458 pH Units (7.350-7.450) H 12/02/19 04:08 POC ABG pCO2 61.7 mmHg (32.0-48.0) H 11/30/19 04:40 ABG pCO2 60.1 mm Hg 12/02/19 04:08 POC ABG pO2 86.6 mmHg (83-108) 11/30/19 04:40 ABG pO2 66.2 mm Hg (80.0-90.0) L 12/02/19 04:08 POC ABG HCO3 39.2 11/30/19 04:40 ABG O2 Saturation 94.4 % (95.0-99.0) L 12/02/19 04:08 PT/INR, D-dimer PT 14.6 Sec. (12.2-14.9) 11/27/19 12:08 INR 1.13 (0.87-1.13) 11/27/19 12:08 D-Dimer 2939.43 ng/mlDDU (0-234) H 12/01/19 14:29 Abnormal lab findings: Abnormal Labs 11/27/19 11/27/19 11/27/19 11:55 12:08 12:08 WBC Hgb Hct 45.8 H MCV 97 H Seg Neuts % (Manual) 76.0 H Lymphocytes % (Manual) 3.0 L Monocytes % (Manual) 17.0 H Nucleated RBC % 1.0 H Seg Neutrophils # Man 7.9 H Lymphocytes # (Manual) 0.3 L Monocytes # (Manual) 1.8 H D-Dimer ABG pH 7.250 L POC ABG pCO2 POC ABG pO2 ABG pO2 61.4 L ABG HCO3 36.5 H ABG O2 Saturation 86.3 L ABG Base Excess 5.9 H ABG Potassium ABG Chloride ABG Glucose Oxyhemoglobin 81.6 L Sodium Potassium 5.5 H Chloride 93.8 L Carbon Dioxide 38 H BUN 75 H Glucose 109 H POC Glucose Calcium 8.3 L Magnesium 3.00 H Ferritin AST 505 H ALT 375 H Lactate Dehydrogenase 408 H C-Reactive Protein 19.50 H NT-Pro-B Natriuret Pep Total Protein Albumin 3.5 L Triglycerides Arterial Blood Glucose Arterial Blood Ionized Calcium Salicylates Acetaminophen 11/27/19 11/27/19 11/27/19 12:08 12:08 12:08 WBC Hgb Hct MCV Seg Neuts % (Manual) Lymphocytes % (Manual) Monocytes % (Manual) Nucleated RBC % Seg Neutrophils # Man Lymphocytes # (Manual) Monocytes # (Manual) D-Dimer ABG pH POC ABG pCO2 POC ABG pO2 ABG pO2 ABG HCO3 ABG O2 Saturation ABG Base Excess ABG Potassium ABG Chloride ABG Glucose Oxyhemoglobin Sodium Potassium Chloride Carbon Dioxide BUN Glucose POC Glucose Calcium Magnesium Ferritin 818.7 H AST ALT Lactate Dehydrogenase C-Reactive Protein NT-Pro-B Natriuret Pep Total Protein Albumin Triglycerides Arterial Blood Glucose Arterial Blood Ionized Calcium Salicylates < 0.3 L Acetaminophen 5.0 L 11/27/19 11/27/19 11/28/19 12:22 22:40 01:45 WBC Hgb Hct MCV Seg Neuts % (Manual) Lymphocytes % (Manual) Monocytes % (Manual) Nucleated RBC % Seg Neutrophils # Man Lymphocytes # (Manual) Monocytes # (Manual) D-Dimer ABG pH 7.086 L 7.257 L POC ABG pCO2 133.5 H 81.8 H POC ABG pO2 78.4 L 172.6 H ABG pO2 ABG HCO3 ABG O2 Saturation ABG Base Excess ABG Potassium ABG Chloride ABG Glucose Oxyhemoglobin Sodium Potassium Chloride Carbon Dioxide BUN Glucose POC Glucose Calcium Magnesium Ferritin AST ALT Lactate Dehydrogenase C-Reactive Protein NT-Pro-B Natriuret Pep 08074 H Total Protein Albumin Triglycerides Arterial Blood Glucose Arterial Blood Ionized Calcium Salicylates Acetaminophen 11/28/19 11/28/19 11/28/19 05:25 12:36 12:36 WBC 11.3 H Hgb Hct MCV 97 H Seg Neuts % (Manual) Lymphocytes % (Manual) Monocytes % (Manual) Nucleated RBC % Seg Neutrophils # Man Lymphocytes # (Manual) Monocytes # (Manual) D-Dimer ABG pH POC ABG pCO2 64.2 H POC ABG pO2 68.1 L ABG pO2 ABG HCO3 ABG O2 Saturation ABG Base Excess ABG Potassium ABG Chloride ABG Glucose Oxyhemoglobin Sodium Potassium 5.4 H Chloride 95.8 L Carbon Dioxide 38 H BUN 46 H Glucose 114 H POC Glucose Calcium 8.0 L Magnesium Ferritin AST 169 H ALT 284 H Lactate Dehydrogenase C-Reactive Protein NT-Pro-B Natriuret Pep Total Protein 5.9 L Albumin 2.9 L Triglycerides Arterial Blood Glucose Arterial Blood Ionized Calcium Salicylates Acetaminophen 11/28/19 11/29/19 11/29/19 15:41 02:42 12:02 WBC Hgb Hct MCV Seg Neuts % (Manual) Lymphocytes % (Manual) Monocytes % (Manual) Nucleated RBC % Seg Neutrophils # Man Lymphocytes # (Manual) Monocytes # (Manual) D-Dimer ABG pH POC ABG pCO2 57.2 H POC ABG pO2 80.2 L ABG pO2 ABG HCO3 ABG O2 Saturation ABG Base Excess ABG Potassium 4.6 H ABG Chloride 97.0 L ABG Glucose 131 H Oxyhemoglobin Sodium Potassium Chloride Carbon Dioxide BUN Glucose POC Glucose 122 H 123 H Calcium Magnesium Ferritin AST ALT Lactate Dehydrogenase C-Reactive Protein NT-Pro-B Natriuret Pep Total Protein Albumin Triglycerides Arterial Blood Glucose 131 H Arterial Blood Ionized Calcium 4.1 L Salicylates Acetaminophen 11/29/19 11/29/19 11/30/19 14:48 17:23 04:30 WBC Hgb Hct MCV Seg Neuts % (Manual) Lymphocytes % (Manual) Monocytes % (Manual) Nucleated RBC % Seg Neutrophils # Man Lymphocytes # (Manual) Monocytes # (Manual) D-Dimer ABG pH POC ABG pCO2 POC ABG pO2 ABG pO2 ABG HCO3 ABG O2 Saturation ABG Base Excess ABG Potassium ABG Chloride ABG Glucose Oxyhemoglobin Sodium 148 H Potassium Chloride 97.4 L Carbon Dioxide 38 H BUN 51 H Glucose 147 H POC Glucose 127 H Calcium 7.9 L Magnesium Ferritin AST ALT Lactate Dehydrogenase C-Reactive Protein NT-Pro-B Natriuret Pep Total Protein Albumin Triglycerides 216 H Arterial Blood Glucose Arterial Blood Ionized Calcium Salicylates Acetaminophen 11/30/19 11/30/19 11/30/19 04:31 04:40 12:33 WBC Hgb Hct MCV Seg Neuts % (Manual) Lymphocytes % (Manual) Monocytes % (Manual) Nucleated RBC % Seg Neutrophils # Man Lymphocytes # (Manual) Monocytes # (Manual) D-Dimer ABG pH POC ABG pCO2 61.7 H POC ABG pO2 ABG pO2 ABG HCO3 ABG O2 Saturation ABG Base Excess ABG Potassium 4.6 H ABG Chloride 97.0 L ABG Glucose 167 H Oxyhemoglobin Sodium Potassium Chloride 96.6 L Carbon Dioxide 37 H BUN 52 H Glucose 173 H POC Glucose 164 H Calcium 8.2 L Magnesium Ferritin AST 86 H ALT 219 H Lactate Dehydrogenase C-Reactive Protein NT-Pro-B Natriuret Pep Total Protein 6.1 L Albumin 3.0 L Triglycerides Arterial Blood Glucose 167 H Arterial Blood Ionized Calcium 4.4 L Salicylates Acetaminophen 11/30/19 12/01/19 12/01/19 18:38 00:26 04:16 WBC Hgb Hct MCV Seg Neuts % (Manual) Lymphocytes % (Manual) Monocytes % (Manual) Nucleated RBC % Seg Neutrophils # Man Lymphocytes # (Manual) Monocytes # (Manual) D-Dimer ABG pH POC ABG pCO2 POC ABG pO2 ABG pO2 186.5 H ABG HCO3 42.8 H ABG O2 Saturation 99.1 H ABG Base Excess 14.4 H ABG Potassium ABG Chloride ABG Glucose Oxyhemoglobin Sodium Potassium Chloride Carbon Dioxide BUN Glucose POC Glucose 142 H 158 H Calcium Magnesium Ferritin AST ALT Lactate Dehydrogenase C-Reactive Protein NT-Pro-B Natriuret Pep Total Protein Albumin Triglycerides Arterial Blood Glucose Arterial Blood Ionized Calcium Salicylates Acetaminophen 12/01/19 12/01/19 12/01/19 05:35 12:17 14:29 WBC Hgb Hct MCV Seg Neuts % (Manual) Lymphocytes % (Manual) Monocytes % (Manual) Nucleated RBC % Seg Neutrophils # Man Lymphocytes # (Manual) Monocytes # (Manual) D-Dimer 2939.43 H ABG pH POC ABG pCO2 POC ABG pO2 ABG pO2 ABG HCO3 ABG O2 Saturation ABG Base Excess ABG Potassium ABG Chloride ABG Glucose Oxyhemoglobin Sodium Potassium Chloride Carbon Dioxide BUN Glucose POC Glucose 151 H 191 H Calcium Magnesium Ferritin AST ALT Lactate Dehydrogenase C-Reactive Protein NT-Pro-B Natriuret Pep Total Protein Albumin Triglycerides Arterial Blood Glucose Arterial Blood Ionized Calcium Salicylates Acetaminophen 12/01/19 12/01/19 12/01/19 14:29 14:29 17:59 WBC Hgb Hct MCV Seg Neuts % (Manual) Lymphocytes % (Manual) Monocytes % (Manual) Nucleated RBC % Seg Neutrophils # Man Lymphocytes # (Manual) Monocytes # (Manual) D-Dimer ABG pH POC ABG pCO2 POC ABG pO2 ABG pO2 ABG HCO3 ABG O2 Saturation ABG Base Excess ABG Potassium ABG Chloride ABG Glucose Oxyhemoglobin Sodium Potassium Chloride Carbon Dioxide BUN Glucose POC Glucose 147 H Calcium Magnesium Ferritin 369.3 H AST ALT Lactate Dehydrogenase C-Reactive Protein 2.60 H NT-Pro-B Natriuret Pep Total Protein Albumin Triglycerides Arterial Blood Glucose Arterial Blood Ionized Calcium Salicylates Acetaminophen 12/01/19 12/02/19 12/02/19 23:58 04:08 05:03 WBC 12.2 H Hgb 15.8 H Hct 47.8 H MCV 95 H Seg Neuts % (Manual) Lymphocytes % (Manual) Monocytes % (Manual) Nucleated RBC % Seg Neutrophils # Man Lymphocytes # (Manual) Monocytes # (Manual) D-Dimer ABG pH 7.458 H POC ABG pCO2 POC ABG pO2 ABG pO2 66.2 L ABG HCO3 41.6 H ABG O2 Saturation 94.4 L ABG Base Excess 14.5 H ABG Potassium ABG Chloride ABG Glucose Oxyhemoglobin 92.4 L Sodium Potassium Chloride Carbon Dioxide BUN Glucose POC Glucose 126 H Calcium Magnesium Ferritin AST ALT Lactate Dehydrogenase C-Reactive Protein NT-Pro-B Natriuret Pep Total Protein Albumin Triglycerides Arterial Blood Glucose Arterial Blood Ionized Calcium Salicylates Acetaminophen 12/02/19 12/02/19 12/02/19 05:03 05:36 12:17 WBC Hgb Hct MCV Seg Neuts % (Manual) Lymphocytes % (Manual) Monocytes % (Manual) Nucleated RBC % Seg Neutrophils # Man Lymphocytes # (Manual) Monocytes # (Manual) D-Dimer ABG pH POC ABG pCO2 POC ABG pO2 ABG pO2 ABG HCO3 ABG O2 Saturation ABG Base Excess ABG Potassium ABG Chloride ABG Glucose Oxyhemoglobin Sodium 151 H Potassium Chloride Carbon Dioxide 40 H BUN 54 H Glucose 142 H POC Glucose 136 H 135 H Calcium Magnesium Ferritin AST ALT Lactate Dehydrogenase C-Reactive Protein NT-Pro-B Natriuret Pep Total Protein Albumin Triglycerides Arterial Blood Glucose Arterial Blood Ionized Calcium Salicylates Acetaminophen 12/02/19 12/02/19 12/03/19 17:59 23:37 05:27 WBC Hgb Hct MCV Seg Neuts % (Manual) Lymphocytes % (Manual) Monocytes % (Manual) Nucleated RBC % Seg Neutrophils # Man Lymphocytes # (Manual) Monocytes # (Manual) D-Dimer ABG pH POC ABG pCO2 POC ABG pO2 ABG pO2 ABG HCO3 ABG O2 Saturation ABG Base Excess ABG Potassium ABG Chloride ABG Glucose Oxyhemoglobin Sodium Potassium Chloride Carbon Dioxide BUN Glucose POC Glucose 139 H 120 H 110 H Calcium Magnesium Ferritin AST ALT Lactate Dehydrogenase C-Reactive Protein NT-Pro-B Natriuret Pep Total Protein Albumin Triglycerides Arterial Blood Glucose Arterial Blood Ionized Calcium Salicylates Acetaminophen
--- NOTE | 2019-12-03 09:30 | Progress Note ---
Assessment and Plan Critical care statement The high probability OF a clinically significant sudden or life-threatening deterioration of the cardiorespiratory system and endocrine system required my full and direct attention, intervention and postoperative management. The aggregate critical care time was 40 minutes. The time is in addition to time spent performing reported procedures but includes the followin: Data review and interpretation 2: Patient assessment and monitoring of vital signs 3: Documentation 4:: Medication orders and management - Patient Problems (1) Acute hypoxemic respiratory failure Current Visit: Yes Status: Acute Plan to address problem: Patient is intubated Coronavirus negative Severe COPD and CHF (2) Hypercapnic respiratory failure Current Visit: Yes Status: Acute Qualifiers: Chronicity: acute on chronic Qualified Code(s): J96.22 - Acute and chronic respiratory failure with hypercapnia Plan to address problem: Duo nebs [id number] and every 3 as needed IV Solu-Medrol 60 mg every 8 [employer] consult appreciated (3) Suspected 2019 novel coronavirus infection Current Visit: Yes Status: Acute Plan to address problem: Coronavirus PCR negative (4) Hyperkalemia Current Visit: Yes Status: Acute Plan to address problem: Treated (5) Hypertension Current Visit: Yes Status: Chronic Qualifiers: Hypertension type: essential hypertension Qualified Code(s): I10 - Essential (primary) hypertension Plan to address problem: Continue antihypertensives (6) Acute exacerbation of CHF (congestive heart failure) Current Visit: Yes Status: Acute Qualifiers: Heart failure type: combined systolic and diastolic Qualified Code(s): I50.43 - Acute on chronic combined systolic (congestive) and diastolic (congestive) heart failure Plan to address problem: BNP is high Small pleural effusion on the right side Will get echocardiogram We will get cardiology consult (7) Elevated LFTs Current Visit: Yes Status: Acute Plan to address problem: Passive congestion of the liver secondary to CHF (8) Coronary artery disease Current Visit: Yes Status: Chronic Qualifiers: Coronary Disease-Associated Artery/Lesion type: [place] artery [place] vs. transplanted heart: [place] heart Plan to address problem: Continue aspirin and Plavix (9) DVT prophylaxis Current Visit: Yes Status: Acute Plan to address problem: On Lovenox and GI prophylaxis Subjective Date of service: 12/02/19 Principal diagnosis: Acute respiratory failure with hypoxia Interval history: Overnight patient became more lethargic with CO2 retention of about 130. Patien t was intubated. Objective - Exam Narrative Exam: Patient was intubated. - Constitutional Vitals: Vital Signs - 12hr 12/02/19 12/02/19 12/02/19 21:30 21:45 22:00 Temperature Pulse Rate 93 H 94 H 96 H Pulse Rate [ Anterior Bilateral Throughout] Pulse Rate [ From Monitor] Respiratory 21 18 24 Rate Respiratory Rate [Anterior Bilateral Throughout] Blood Pressure 108/64 108/64 103/71 O2 Sat by Pulse 97 95 90 Oximetry 12/02/19 12/02/19 12/02/19 22:05 22:15 22:30 Temperature Pulse Rate 95 H 88 84 Pulse Rate [ Anterior Bilateral Throughout] Pulse Rate [ From Monitor] Respiratory 26 H 26 H Rate Respiratory Rate [Anterior Bilateral Throughout] Blood Pressure 103/71 101/65 100/65 O2 Sat by Pulse 91 91 Oximetry 12/02/19 12/02/19 12/02/19 22:45 23:00 23:13 Temperature Pulse Rate 85 83 87 Pulse Rate [ Anterior Bilateral Throughout] Pulse Rate [ From Monitor] Respiratory 26 H 27 H 26 H Rate Respiratory Rate [Anterior Bilateral Throughout] Blood Pressure 102/67 99/67 102/67 O2 Sat by Pulse 92 94 93 Oximetry 12/02/19 12/02/19 12/02/19 23:15 23:30 23:45 Temperature Pulse Rate 84 84 77 Pulse Rate [ Anterior Bilateral Throughout] Pulse Rate [ From Monitor] Respiratory 26 H 26 H 26 H Rate Respiratory Rate [Anterior Bilateral Throughout] Blood Pressure 102/69 100/70 104/72 O2 Sat by Pulse 93 94 94 Oximetry 12/03/19 12/03/19 12/03/19 00:00 00:15 00:30 Temperature 97.5 F L Pulse Rate 75 73 72 Pulse Rate [ Anterior Bilateral Throughout] Pulse Rate [ 75 From Monitor] Respiratory 26 H 26 H 26 H Rate Respiratory Rate [Anterior Bilateral Throughout] Blood Pressure 104/74 104/71 104/71 O2 Sat by Pulse 94 93 93 Oximetry 12/03/19 12/03/19 12/03/19 00:45 01:00 01:15 Temperature Pulse Rate 72 70 72 Pulse Rate [ Anterior Bilateral Throughout] Pulse Rate [ From Monitor] Respiratory 26 H 26 H 26 H Rate Respiratory Rate [Anterior Bilateral Throughout] Blood Pressure 106/72 109/74 103/71 O2 Sat by Pulse 91 93 91 Oximetry 12/03/19 12/03/1912/02/20 01:30 01:45 02:00 Temperature Pulse Rate 73 72 71 Pulse Rate [ Anterior Bilateral Throughout] Pulse Rate [ From Monitor] Respiratory 26 H 26 H 26 H Rate Respiratory Rate [Anterior Bilateral Throughout] Blood Pressure 107/75 101/71 105/72 O2 Sat by Pulse 95 95 95 Oximetry 12/03/19 12/03/19 12/03/19 02:15 02:30 02:45 Temperature Pulse Rate 69 71 72 Pulse Rate [ Anterior Bilateral Throughout] Pulse Rate [ From Monitor] Respiratory 26 H 26 H 26 H Rate Respiratory Rate [Anterior Bilateral Throughout] Blood Pressure 106/74 107/74 105/76 O2 Sat by Pulse 95 95 95 Oximetry 12/03/19 12/03/19 12/03/19 03:00 03:15 03:30 Temperature Pulse Rate 72 74 76 Pulse Rate [ Anterior Bilateral Throughout] Pulse Rate [ From Monitor] Respiratory 26 H 26 H 26 H Rate Respiratory Rate [Anterior Bilateral Throughout] Blood Pressure 109/76 102/73 105/74 O2 Sat by Pulse 95 94 94 Oximetry 12/03/19 12/03/19 12/03/19 03:37 03:45 04:00 Temperature 99.3 F Pulse Rate 73 75 74 Pulse Rate [ Anterior Bilateral Throughout] Pulse Rate [ 74 From Monitor] Respiratory 26 H 26 H Rate Respiratory Rate [Anterior Bilateral Throughout] Blood Pressure 123/85 106/74 O2 Sat by Pulse 95 93 95 Oximetry 12/03/19 12/03/19 12/03/19 04:15 04:30 04:45 Temperature Pulse Rate 74 75 75 Pulse Rate [ Anterior Bilateral Throughout] Pulse Rate [ From Monitor] Respiratory 26 H 26 H 26 H Rate Respiratory Rate [Anterior Bilateral Throughout] Blood Pressure 103/72 100/70 104/73 O2 Sat by Pulse 95 95 94 Oximetry 12/03/19 12/03/19 12/03/19 05:00 05:15 05:30 Temperature Pulse Rate 75 73 75 Pulse Rate [ Anterior Bilateral Throughout] Pulse Rate [ From Monitor] Respiratory 26 H 26 H 26 H Rate Respiratory Rate [Anterior Bilateral Throughout] Blood Pressure 105/71 105/74 107/77 O2 Sat by Pulse 94 94 93 Oximetry 12/03/19 12/03/19 12/03/19 05:45 06:00 06:15 Temperature Pulse Rate 73 75 78 Pulse Rate [ Anterior Bilateral Throughout] Pulse Rate [ From Monitor] Respiratory 26 H 26 H 25 H Rate Respiratory Rate [Anterior Bilateral Throughout] Blood Pressure 109/80 115/84 122/86 O2 Sat by Pulse 94 94 93 Oximetry 12/03/19 12/03/19 12/03/19 06:30 06:45 07:00 Temperature Pulse Rate 84 78 83 Pulse Rate [ Anterior Bilateral Throughout] Pulse Rate [ From Monitor] Respiratory 20 14 21 Rate Respiratory Rate [Anterior Bilateral Throughout] Blood Pressure 110/86 111/79 115/75 O2 Sat by Pulse 94 94 90 Oximetry 12/03/19 12/03/19 12/03/19 07:15 07:30 07:45 Temperature Pulse Rate 83 80 85 Pulse Rate [ Anterior Bilateral Throughout] Pulse Rate [ From Monitor] Respiratory 18 22 16 Rate Respiratory Rate [Anterior Bilateral Throughout] Blood Pressure 114/83 117/80 117/80 O2 Sat by Pulse 91 90 88 Oximetry 12/03/19 12/03/19 12/03/19 08:00 08:13 08:15 Temperature Pulse Rate 77 80 Pulse Rate [ 81 Anterior Bilateral Throughout] Pulse Rate [ From Monitor] Respiratory 20 20 Rate Respiratory 26 H Rate [Anterior Bilateral Throughout] Blood Pressure 110/72 113/71 O2 Sat by Pulse 93 84 Oximetry 12/03/19 12/03/19 12/03/19 08:30 08:45 08:51 Temperature Pulse Rate 79 84 Pulse Rate [ Anterior Bilateral Throughout] Pulse Rate [ From Monitor] Respiratory 21 17 Rate Respiratory Rate [Anterior Bilateral Throughout] Blood Pressure 109/69 108/69 O2 Sat by Pulse 89 89 93 Oximetry 12/03/19 12/03/19 09:00 09:15 Temperature Pulse Rate 83 88 Pulse Rate [ Anterior Bilateral Throughout] Pulse Rate [ From Monitor] Respiratory 16 21 Rate Respiratory Rate [Anterior Bilateral Throughout] Blood Pressure 107/67 90/60 O2 Sat by Pulse 91 80 L Oximetry General appearance: Present: no acute distress, well-nourished - EENT Eyes: PERRL, EOM intact ENT: hearing intact, clear oral mucosa Ears: bilateral: normal - Neck Neck: supple, normal ROM - Respiratory Respiratory effort: normal Respiratory: bilateral: CTA, negative: rhonchi, wheezing - Breasts Breasts: normal - Cardiovascular Rhythm: regular Heart Sounds: Present: S1 & S2. Absent: gallop, rub Extremities: pulses intact, No edema, normal color, Full ROM - Gastrointestinal General gastrointestinal: Present: soft, non-tender, non-distended, normal bowel sounds - Genitourinary Male genitourinary: normal - Integumentary Integumentary: clear, warm, dry - Musculoskeletal Musculoskeletal: 1, strength equal bilaterally - Neurologic Neurologic: moves all extremities - Psychiatric Psychiatric: memory intact, appropriate mood/affect, intact judgment & insight - Labs CBC & Chem 7: 12/06/19 04:28 12/06/19 04:28 Labs: Abnormal lab results 12/02/19 12/02/19 12/02/19 Range/Units 12:17 17:59 23:37 POC Glucose 135 H 139 H 120 H (70-105) 12/03/19 Range/Units 05:27 POC Glucose 110 H (70-105) HEART Score - HEART Score Age: 45-65 Risk factors: 1-2 risk factors Troponin: 1-3x normal limit - Critical Actions Critical Actions: 4-6 pts:12-16.6% risk of adverse cardiac event. Should be admitted
--- NOTE | 2019-12-03 09:30 | Progress Note ---
Assessment and Plan Critical care statement The high probability OF a clinically significant sudden or life-threatening deterioration of the cardiorespiratory system and endocrine system required my full and direct attention, intervention and postoperative management. The aggregate critical care time was 40 minutes. The time is in addition to time spent performing reported procedures but includes the followin: Data review and interpretation 2: Patient assessment and monitoring of vital signs 3: Documentation 4:: Medication orders and management - Patient Problems (1) Acute hypoxemic respiratory failure Current Visit: Yes Status: Acute Plan to address problem: Patient is intubated Coronavirus negative Severe COPD and CHF (2) Hypercapnic respiratory failure Current Visit: Yes Status: Acute Qualifiers: Chronicity: acute on chronic Qualified Code(s): J96.22 - Acute and chronic respiratory failure with hypercapnia Plan to address problem: Duo nebs [id number] and every 3 as needed IV Solu-Medrol 60 mg every 8 Research Physician consult appreciated (3) Suspected 2019 novel coronavirus infection Current Visit: Yes Status: Acute Plan to address problem: Coronavirus PCR negative (4) Hyperkalemia Current Visit: Yes Status: Acute Plan to address problem: Treated (5) Hypertension Current Visit: Yes Status: Chronic Qualifiers: Hypertension type: essential hypertension Qualified Code(s): I10 - Essential (primary) hypertension Plan to address problem: Continue antihypertensives (6) Acute exacerbation of CHF (congestive heart failure) Current Visit: Yes Status: Acute Qualifiers: Heart failure type: combined systolic and diastolic Qualified Code(s): I50.43 - Acute on chronic combined systolic (congestive) and diastolic (congestive) heart failure Plan to address problem: BNP is high Small pleural effusion on the right side Will get echocardiogram We will get cardiology consult (7) Elevated LFTs Current Visit: Yes Status: Acute Plan to address problem: Passive congestion of the liver secondary to CHF (8) Coronary artery disease Current Visit: Yes Status: Chronic Qualifiers: Coronary Disease-Associated Artery/Lesion type: [place] artery [place] vs. transplanted heart: [place] heart Plan to address problem: Continue aspirin and Plavix (9) DVT prophylaxis Current Visit: Yes Status: Acute Plan to address problem: On Lovenox and GI prophylaxis Subjective Date of service: 12/03/19 Principal diagnosis: Acute respiratory failure with hypoxia Interval history: Overnight patient became more lethargic with CO2 retention of about 130. Patien t was intubated. Objective - Exam Narrative Exam: Patient was intubated. - Constitutional Vitals: Vital Signs - 12hr 12/02/19 12/02/19 12/02/19 21:45 22:00 22:05 Temperature Pulse Rate 94 H 96 H 95 H Pulse Rate [ Anterior Bilateral Throughout] Pulse Rate [ From Monitor] Respiratory 18 24 Rate Respiratory Rate [Anterior Bilateral Throughout] Blood Pressure 108/64 103/71 103/71 O2 Sat by Pulse 95 90 Oximetry 12/02/19 12/02/19 12/02/19 22:15 22:30 22:45 Temperature Pulse Rate 88 84 85 Pulse Rate [ Anterior Bilateral Throughout] Pulse Rate [ From Monitor] Respiratory 26 H 26 H 26 H Rate Respiratory Rate [Anterior Bilateral Throughout] Blood Pressure 101/65 100/65 102/67 O2 Sat by Pulse 91 91 92 Oximetry 12/02/19 12/02/19 12/02/19 23:00 23:13 23:15 Temperature Pulse Rate 83 87 84 Pulse Rate [ Anterior Bilateral Throughout] Pulse Rate [ From Monitor] Respiratory 27 H 26 H 26 H Rate Respiratory Rate [Anterior Bilateral Throughout] Blood Pressure 99/67 102/67 102/69 O2 Sat by Pulse 94 93 93 Oximetry 12/02/19 12/02/19 12/03/19 23:30 23:45 00:00 Temperature 97.5 F L Pulse Rate 84 77 75 Pulse Rate [ Anterior Bilateral Throughout] Pulse Rate [ 75 From Monitor] Respiratory 26 H 26 H 26 H Rate Respiratory Rate [Anterior Bilateral Throughout] Blood Pressure 100/70 104/72 104/74 O2 Sat by Pulse 94 94 94 Oximetry 12/03/19 12/03/19 12/03/19 00:15 00:30 00:45 Temperature Pulse Rate 73 72 72 Pulse Rate [ Anterior Bilateral Throughout] Pulse Rate [ From Monitor] Respiratory 26 H 26 H 26 H Rate Respiratory Rate [Anterior Bilateral Throughout] Blood Pressure 104/71 104/71 106/72 O2 Sat by Pulse 93 93 91 Oximetry 12/03/19 12/03/19 12/03/19 01:00 01:15 01:30 Temperature Pulse Rate 70 72 73 Pulse Rate [ Anterior Bilateral Throughout] Pulse Rate [ From Monitor] Respiratory 26 H 26 H 26 H Rate Respiratory Rate [Anterior Bilateral Throughout] Blood Pressure 109/74 103/71 107/75 O2 Sat by Pulse 93 91 95 Oximetry 12/03/19 12/03/1912/02/20 01:45 02:00 02:15 Temperature Pulse Rate 72 71 69 Pulse Rate [ Anterior Bilateral Throughout] Pulse Rate [ From Monitor] Respiratory 26 H 26 H 26 H Rate Respiratory Rate [Anterior Bilateral Throughout] Blood Pressure 101/71 105/72 106/74 O2 Sat by Pulse 95 95 95 Oximetry 12/03/19 12/03/19 12/03/19 02:30 02:45 03:00 Temperature Pulse Rate 71 72 72 Pulse Rate [ Anterior Bilateral Throughout] Pulse Rate [ From Monitor] Respiratory 26 H 26 H 26 H Rate Respiratory Rate [Anterior Bilateral Throughout] Blood Pressure 107/74 105/76 109/76 O2 Sat by Pulse 95 95 95 Oximetry 12/03/19 12/03/19 12/03/19 03:15 03:30 03:37 Temperature Pulse Rate 74 76 73 Pulse Rate [ Anterior Bilateral Throughout] Pulse Rate [ From Monitor] Respiratory 26 H 26 H Rate Respiratory Rate [Anterior Bilateral Throughout] Blood Pressure 102/73 105/74 O2 Sat by Pulse 94 94 95 Oximetry 12/03/19 12/03/19 12/03/19 03:45 04:00 04:15 Temperature 99.3 F Pulse Rate 75 74 74 Pulse Rate [ Anterior Bilateral Throughout] Pulse Rate [ 74 From Monitor] Respiratory 26 H 26 H 26 H Rate Respiratory Rate [Anterior Bilateral Throughout] Blood Pressure 123/85 106/74 103/72 O2 Sat by Pulse 93 95 95 Oximetry 12/03/19 12/03/19 12/03/19 04:30 04:45 05:00 Temperature Pulse Rate 75 75 75 Pulse Rate [ Anterior Bilateral Throughout] Pulse Rate [ From Monitor] Respiratory 26 H 26 H 26 H Rate Respiratory Rate [Anterior Bilateral Throughout] Blood Pressure 100/70 104/73 105/71 O2 Sat by Pulse 95 94 94 Oximetry 12/03/19 12/03/19 12/03/19 05:15 05:30 05:45 Temperature Pulse Rate 73 75 73 Pulse Rate [ Anterior Bilateral Throughout] Pulse Rate [ From Monitor] Respiratory 26 H 26 H 26 H Rate Respiratory Rate [Anterior Bilateral Throughout] Blood Pressure 105/74 107/77 109/80 O2 Sat by Pulse 94 93 94 Oximetry 12/03/19 12/03/19 12/03/19 06:00 06:15 06:30 Temperature Pulse Rate 75 78 84 Pulse Rate [ Anterior Bilateral Throughout] Pulse Rate [ From Monitor] Respiratory 26 H 25 H 20 Rate Respiratory Rate [Anterior Bilateral Throughout] Blood Pressure 115/84 122/86 110/86 O2 Sat by Pulse 94 93 94 Oximetry 12/03/19 12/03/19 12/03/19 06:45 07:00 07:15 Temperature Pulse Rate 78 83 83 Pulse Rate [ Anterior Bilateral Throughout] Pulse Rate [ From Monitor] Respiratory 14 21 18 Rate Respiratory Rate [Anterior Bilateral Throughout] Blood Pressure 111/79 115/75 114/83 O2 Sat by Pulse 94 90 91 Oximetry 12/03/19 12/03/19 12/03/19 07:30 07:45 08:00 Temperature 98 F Pulse Rate 80 85 77 Pulse Rate [ Anterior Bilateral Throughout] Pulse Rate [ From Monitor] Respiratory 22 16 20 Rate Respiratory Rate [Anterior Bilateral Throughout] Blood Pressure 117/80 117/80 110/72 O2 Sat by Pulse 90 88 93 Oximetry 12/03/19 12/03/19 12/03/19 08:13 08:15 08:30 Temperature Pulse Rate 80 79 Pulse Rate [ 81 Anterior Bilateral Throughout] Pulse Rate [ From Monitor] Respiratory 20 21 Rate Respiratory 26 H Rate [Anterior Bilateral Throughout] Blood Pressure 113/71 109/69 O2 Sat by Pulse 84 89 Oximetry 12/03/19 12/03/19 12/03/19 08:45 08:51 09:00 Temperature Pulse Rate 84 83 Pulse Rate [ Anterior Bilateral Throughout] Pulse Rate [ From Monitor] Respiratory 17 16 Rate Respiratory Rate [Anterior Bilateral Throughout] Blood Pressure 108/69 107/67 O2 Sat by Pulse 89 93 91 Oximetry 12/03/19 09:15 Temperature Pulse Rate 88 Pulse Rate [ Anterior Bilateral Throughout] Pulse Rate [ From Monitor] Respiratory 21 Rate Respiratory Rate [Anterior Bilateral Throughout] Blood Pressure 90/60 O2 Sat by Pulse 80 L Oximetry General appearance: Present: no acute distress, mild distress, well-nourished - EENT Eyes: PERRL, EOM intact ENT: hearing intact, clear oral mucosa Ears: bilateral: normal - Neck Neck: supple, normal ROM - Respiratory Respiratory effort: normal Respiratory: bilateral: CTA, rhonchi, wheezing - Breasts Breasts: normal - Cardiovascular Rhythm: regular Heart Sounds: Present: S1 & S2. Absent: gallop, rub Extremities: pulses intact, No edema, normal color, Full ROM - Gastrointestinal General gastrointestinal: Present: soft, non-tender, non-distended, normal bowel sounds - Genitourinary Male genitourinary: normal - Integumentary Integumentary: clear, warm, dry - Musculoskeletal Musculoskeletal: 1, strength equal bilaterally - Neurologic Neurologic: moves all extremities - Psychiatric Psychiatric: memory intact, appropriate mood/affect, intact judgment & insight - Labs CBC & Chem 7: 12/06/19 04:28 12/06/19 04:28 Labs: Abnormal lab results 12/02/19 12/02/19 12/02/19 Range/Units 12:17 17:59 23:37 POC Glucose 135 H 139 H 120 H (70-105) 12/03/19 Range/Units 05:27 POC Glucose 110 H (70-105) HEART Score - HEART Score Age: 45-65 Risk factors: 1-2 risk factors Troponin: 1-3x normal limit - Critical Actions Critical Actions: 4-6 pts:12-16.6% risk of adverse cardiac event. Should be admitted
[2019-12-03] MEDS: FAMOTIDINE 20 MG TAB PO SCH ×2 (10:08→22:00)
[2019-12-03] MEDS: carvediloL 3.125 MG TAB PO SCH ×2 (10:08→22:00)
[2019-12-03] MEDS: VALPROIC ACID 250 MG/5 ML ORAL LIQD FEEDTUBE SCH ×2 (10:08→22:00)
[2019-12-03] MEDS: ENOXAPARIN 150 MG/1 ML INJ SUB-Q SCH ×2 (10:08→21:45)
[2019-12-03] MEDS: LISINOPRIL 5 MG TAB PO SCH (10:09)
--- NOTE | 2019-12-03 11:12 | Progress Note ---
Assessment and Plan - Patient Problems (1) Acute pulmonary embolism Current Visit: Yes Status: Acute Plan to address problem: Patient is status post respiratory failure due to acute pulmonary embolism. Continue management as outlined by pulmonary. Subjective Date of service: 12/03/19 Principal diagnosis: Acute respiratory failure with hypoxia Interval history: Patient was extubated this morning, breathing comfortably on room air. On environmental monitoring specialist he is in a sinus rhythm at 90, blood pressure 110 systolic. Objective Vital Signs Temp Pulse Pulse Pulse Resp Resp BP 12/03/19 10:09 118/63 12/03/19 10:08 80 118/63 12/03/19 09:15 88 21 90/60 12/03/19 09:00 83 16 107/67 12/03/19 08:51 12/03/19 08:45 84 17 108/69 12/03/19 08:30 79 21 109/69 12/03/19 08:15 80 20 113/71 12/03/19 08:13 81 26 H 12/03/19 08:00 98 F 77 20 110/72 12/03/19 07:45 85 16 117/80 12/03/19 07:30 80 22 117/80 12/03/19 07:15 83 18 114/83 12/03/19 07:00 83 21 115/75 12/03/19 06:45 78 14 111/79 12/03/19 06:30 84 20 110/86 12/03/19 06:15 78 25 H 122/86 12/03/19 06:00 75 26 H 115/84 12/03/19 05:45 73 26 H 109/80 12/03/19 05:30 75 26 H 107/77 12/03/19 05:15 73 26 H 105/74 12/03/19 05:00 75 26 H 105/71 12/03/19 04:45 75 26 H 104/73 12/03/19 04:30 75 26 H 100/70 12/03/19 04:15 74 26 H 103/72 12/03/19 04:00 99.3 F 74 74 26 H 106/74 12/03/19 03:45 75 26 H 123/85 12/03/19 03:37 73 12/03/19 03:30 76 26 H 105/74 12/03/19 03:15 74 26 H 102/73 12/03/19 03:00 72 26 H 109/76 12/03/19 02:45 72 26 H 105/76 12/03/19 02:30 71 26 H 107/74 12/03/19 02:15 69 26 H 106/74 12/03/19 02:00 71 26 H 105/72 12/03/19 01:45 72 26 H 101/71 12/03/19 01:30 73 26 H 107/75 12/03/19 01:15 72 26 H 103/71 12/03/19 01:00 70 26 H 109/74 12/03/19 00:45 72 26 H 106/72 12/03/19 00:30 72 26 H 104/71 12/03/19 00:15 73 26 H 104/71 12/03/19 00:00 97.5 F L 75 75 26 H 104/74 12/02/19 23:45 77 26 H 104/72 12/02/19 23:30 84 26 H 100/70 12/02/19 23:15 84 26 H 102/69 12/02/19 23:13 87 26 H 102/67 12/02/19 23:00 83 27 H 99/67 12/02/19 22:45 85 26 H 102/67 12/02/19 22:30 84 26 H 100/65 12/02/19 22:15 88 26 H 101/65 12/02/19 22:05 95 H 103/71 12/02/19 22:00 96 H 24 103/71 12/02/19 21:45 94 H 18 108/64 12/02/19 21:30 93 H 21 108/64 12/02/19 21:15 88 14 108/77 12/02/19 21:00 85 20 127/78 12/02/19 20:45 88 16 119/81 12/02/19 20:30 92 H 17 109/75 12/02/19 20:15 88 14 103/76 12/02/19 20:05 88 12/02/19 20:00 97.6 F 87 93 H 87 24 28 H 109/75 12/02/19 19:45 86 15 118/77 12/02/19 19:30 86 26 H 108/74 12/02/19 19:15 96 H 19 134/86 10/15/20 19:00 92 H 14 134/86 12/02/19 18:45 93 H 15 123/77 12/02/19 18:30 80 10 L 109/66 12/02/19 18:15 85 14 112/69 12/02/19 18:00 84 13 117/80 12/02/19 17:45 82 15 116/84 12/02/19 17:30 77 18 113/74 12/02/19 17:15 75 14 108/68 12/02/19 17:00 77 19 109/69 12/02/19 16:45 81 20 106/70 12/02/19 16:30 77 78 16 27 H 106/69 12/02/19 16:15 85 18 111/78 12/02/19 16:00 98.5 F 77 77 26 H 111/75 12/02/19 15:45 79 26 H 99/62 12/02/19 15:30 80 21 97/63 12/02/19 15:15 81 20 107/69 12/02/19 15:00 75 26 H 101/66 12/02/19 14:45 76 26 H 99/63 12/02/19 14:30 77 19 90/54 12/02/19 14:15 82 20 96/63 12/02/19 14:00 87 17 95/60 12/02/19 13:45 78 20 95/60 12/02/19 13:30 77 21 96/65 12/02/19 13:17 76 101/68 12/02/19 13:15 77 22 101/68 12/02/19 13:00 75 28 H 99/67 12/02/19 12:45 75 24 102/68 12/02/19 12:30 76 26 H 100/67 12/02/19 12:15 77 22 97/63 12/02/19 12:00 98.1 F 78 78 66 22 26 H 99/67 12/02/19 11:45 78 20 100/68 12/02/19 11:30 80 26 H 106/68 12/02/19 11:29 80 106/68 12/02/19 11:15 84 19 109/76 Pulse Ox 12/03/19 10:09 12/03/19 10:08 12/03/19 09:15 80 L 12/03/19 09:00 91 12/03/19 08:51 93 10/16/20 08:45 89 12/03/19 08:30 89 12/03/19 08:15 84 12/03/19 08:13 12/03/19 08:00 93 12/03/19 07:45 88 12/03/19 07:30 90 12/03/19 07:15 91 12/03/19 07:00 90 12/03/19 06:45 94 12/03/19 06:30 94 12/03/19 06:15 93 12/03/19 06:00 94 12/03/19 05:45 94 12/03/19 05:30 93 12/03/19 05:15 94 12/03/19 05:00 94 12/03/19 04:45 94 12/03/19 04:30 95 12/03/19 04:15 95 12/03/19 04:00 95 12/03/19 03:45 93 12/03/19 03:37 95 12/03/19 03:30 94 12/03/19 03:15 94 12/03/19 03:00 95 12/03/19 02:45 95 12/03/19 02:30 95 12/03/19 02:15 95 12/03/19 02:00 95 12/03/19 01:45 95 12/03/19 01:30 95 12/03/19 01:15 91 12/03/19 01:00 93 12/03/19 00:45 91 12/03/19 00:30 93 12/03/19 00:15 93 12/03/19 00:00 94 12/02/19 23:45 94 12/02/19 23:30 94 20 23:15 93 12/02/19 23:13 93 12/02/19 23:00 94 20 22:45 92 20 22:30 91 20 22:15 91 12/02/19 22:05 12/02/19 22:00 90 20 21:45 95 20 21:30 97 20 21:15 96 1520 21:00 96 20 20:45 96 20 20:30 95 20 20:15 96 10/15/20 20:05 10/15/20 20:00 95 12/02/19 19:45 93 12/02/19 19:30 12/02/19 19:15 91 12/02/19 19:00 86 12/02/19 18:45 91 12/02/19 18:30 90 12/02/19 18:15 12/02/19 18:00 97 12/02/19 17:45 94 12/02/19 17:30 93 12/02/19 17:15 92 12/02/19 17:00 91 12/02/19 16:45 95 12/02/19 16:30 96 12/02/19 16:15 97 12/02/19 16:00 100 12/02/19 15:45 94 12/02/19 15:30 91 12/02/19 15:15 92 12/02/19 15:00 95 12/02/19 14:45 95 12/02/19 14:30 95 12/02/19 14:15 97 12/02/19 14:00 97 12/02/19 13:45 96 12/02/19 13:30 96 12/02/19 13:17 96 12/02/19 13:15 95 12/02/19 13:00 95 12/02/19 12:45 96 12/02/19 12:30 96 12/02/19 12:15 95 12/02/19 12:00 96 12/02/19 11:45 95 12/02/19 11:30 95 12/02/19 11:29 94 12/02/19 11:15 95 - Physical Examination General: No Apparent Distress HEENT: Positive: PERRL, Other (DILATED PUPILS) Neck: Positive: neck supple Cardiac: Positive: Reg Rate and Rhythm Lungs: Positive: Decreased Breath Sounds Neuro: Positive: Grossly Intact Abdomen: Positive: Soft Skin: Positive: Clear Extremities: Absent: edema
--- NOTE | 2019-12-03 14:01 | Progress Note ---
Assessment and Plan Cultures: Blood culture pending SARS CoV2 PCR negative Assessment: 49 years old female with morbid obesity, psychiatric disorder, admitted on 11/27/2019 due to a week history of worsening shortness of breath, cough, generalized weakness, malaise: #Severe sepsis: Present on admission with tachycardia, severe hypoxia likely due to bilateral pneumonia. #Suspect Critical COVID pneumonia: SARS-CoV-2 PCR negative initially. Inflammatory markers, ferritin, CRP and LDH daily elevated. D-dimer pending. Noted elevated BNP #Acute hypoxemic respiratory failure: Initial O2 sat 69%, patient was on BiPAP, now intubated. discussed with Dr. Díaz, most likely secondary to non- compliance with CHF medications and accumulation of fluid. Woul get re-test to ensure infection did not tip him into exacerbations. #Elevated LFTs: Elevated 10 times baseline. From COVID #Morbid obesity: Associated with poor cell counts. #Left lung pulmonary embolism: Management per primary and cardiology. Recommendations: -Obtain SARS-CoV-2 PCR retest - was cancelled, pulm will obtain -Dexamethasone 6 mg IV/PO daily for 10 days -Monitor inflammatory markers - ferritin, Ddimer, CRP, LDH. D-dimer is pending -Anticoagulation for pulmonary was appropriate. Will follow Rocky Cosby MD [facility] ([facility] M: [phone] O: [phone] F: [phone] Subjective Date of service: 12/03/19 Principal diagnosis: Acute respiratory failure with hypoxia Interval history: Afebrile, white count is 12.2. Imaging personally reviewed: Chest CTA: Pulmonary emboli in the left upper and left lower lobe. Objective - Exam Narrative Exam: Physical exam deferred due to PPE conservation strategy. Please refer to primary team's note. - Constitutional Vitals: Vital Signs Temp Pulse Resp BP Pulse Ox 98 F 74 14 107/77 95 12/03/19 08:00 12/03/19 13:00 12/03/19 13:00 12/03/19 13:00 12/03/19 12:45 Temperature -Last 24 Hours Temperature 98 F Temperature 99.3 F Temperature 97.5 F Temperature 97.6 F Temperature 98.5 F - Labs CBC & Chem 7: 12/02/19 05:03 12/02/19 05:03 Labs: Abnormal lab results 12/02/19 12/02/19 12/02/19 Range/Units 12:17 17:59 23:37 POC Glucose 135 H 139 H 120 H (70-105) 12/03/19 Range/Units 05:27 POC Glucose 110 H (70-105)
[2019-12-04] MEDS: methylPREDNISolone Sod Succinate 125 MG/2 ML INJ IV SCH ×3 (05:46→21:24)
[2019-12-04] MEDS: FUROSEMIDE 40 MG/4 ML INJ IV SCH ×2 (05:46→18:36)
--- NOTE | 2019-12-04 07:55 | Progress Note ---
Assessment and Plan Critical care statement The high probability OF a clinically significant sudden or life-threatening deterioration of the cardiorespiratory system and endocrine system required my full and direct attention, intervention and postoperative management. The aggregate critical care time was 40 minutes. The time is in addition to time spent performing reported procedures but includes the followin: Data review and interpretation 2: Patient assessment and monitoring of vital signs 3: Documentation 4:: Medication orders and management - Patient Problems (1) Acute hypoxemic respiratory failure Current Visit: Yes Status: Acute Plan to address problem: Patient is extubated Continue nasal cannula oxygen and nebulizer treatments (2) Hypercapnic respiratory failure Current Visit: Yes Status: Acute Qualifiers: Chronicity: acute on chronic Qualified Code(s): J96.22 - Acute and chronic respiratory failure with hypercapnia Plan to address problem: Duo nebs [id number] and every 3 as needed IV Solu-Medrol decreased to 20 mg every 8 (3) Suspected 2019 novel coronavirus infection Current Visit: Yes Status: Acute Plan to address problem: Coronavirus PCR negative (4) Hyperkalemia Current Visit: Yes Status: Acute Plan to address problem: Treated (5) Hypertension Current Visit: Yes Status: Chronic Qualifiers: Hypertension type: essential hypertension Qualified Code(s): I10 - Essential (primary) hypertension Plan to address problem: Continue antihypertensives (6) Acute exacerbation of CHF (congestive heart failure) Current Visit: Yes Status: Acute Qualifiers: Heart failure type: combined systolic and diastolic Qualified Code(s): I50.43 - Acute on chronic combined systolic (congestive) and diastolic (congestive) heart failure Plan to address problem: BNP is high Small pleural effusion on the right side Will get echocardiogram We will get cardiology consult (7) Elevated LFTs Current Visit: Yes Status: Acute Plan to address problem: Passive congestion of the liver secondary to CHF (8) Coronary artery disease Current Visit: Yes Status: Chronic Qualifiers: Coronary Disease-Associated Artery/Lesion type: grayling artery [place] vs. transplanted heart: grayling heart Plan to address problem: Continue aspirin and Plavix (9) DVT prophylaxis Current Visit: Yes Status: Acute Plan to address problem: On Lovenox and GI prophylaxis (10) Discharge planning issues Current Visit: Yes Status: Acute Plan to address problem: Patient transferred to floor Subjective Date of service: 12/04/19 Principal diagnosis: Acute respiratory failure with hypoxia Interval history: Patient extubated yesterday post extubation patient doing well but still coughing and slightly short of breath Patient to be transferred to medical floor Objective - Constitutional Vitals: Vital Signs - 12hr 12/03/19 12/03/19 12/03/19 19:57 20:00 20:15 Temperature 98.2 F Pulse Rate 76 76 Pulse Rate [ Anterior Bilateral Throughout] Respiratory 23 18 Rate Respiratory Rate [Anterior Bilateral Throughout] Blood Pressure 124/81 112/76 O2 Sat by Pulse 90 Oximetry 12/03/19 12/03/19 12/03/19 20:31 20:32 20:45 Temperature Pulse Rate 84 78 Pulse Rate [ 83 Anterior Bilateral Throughout] Respiratory 15 18 Rate Respiratory 15 Rate [Anterior Bilateral Throughout] Blood Pressure 114/77 O2 Sat by Pulse 94 Oximetry 12/03/19 12/03/19 12/03/19 20:46 21:00 21:30 Temperature Pulse Rate 84 86 Pulse Rate [ Anterior Bilateral Throughout] Respiratory 15 19 Rate Respiratory Rate [Anterior Bilateral Throughout] Blood Pressure 110/86 116/77 O2 Sat by Pulse 97 94 98 Oximetry 12/03/19 12/03/19 12/03/19 22:00 22:30 23:00 Temperature Pulse Rate 75 73 73 Pulse Rate [ Anterior Bilateral Throughout] Respiratory 18 15 19 Rate Respiratory Rate [Anterior Bilateral Throughout] Blood Pressure 117/80 114/77 115/79 O2 Sat by Pulse Oximetry 12/03/19 12/03/19 12/03/19 23:30 23:31 23:45 Temperature 98.8 F Pulse Rate 73 83 Pulse Rate [ Anterior Bilateral Throughout] Respiratory 12 13 Rate Respiratory Rate [Anterior Bilateral Throughout] Blood Pressure 116/77 124/83 O2 Sat by Pulse 95 96 Oximetry 12/04/19 12/04/19 12/04/19 00:00 01:00 02:00 Temperature Pulse Rate 73 73 82 Pulse Rate [ Anterior Bilateral Throughout] Respiratory 12 13 12 Rate Respiratory Rate [Anterior Bilateral Throughout] Blood Pressure 113/75 114/77 124/89 O2 Sat by Pulse 92 95 96 Oximetry 12/04/19 12/04/19 12/04/19 03:00 03:46 03:47 Temperature 98.4 F Pulse Rate 72 73 Pulse Rate [ Anterior Bilateral Throughout] Respiratory 12 Rate Respiratory Rate [Anterior Bilateral Throughout] Blood Pressure 120/78 O2 Sat by Pulse Oximetry 12/04/19 12/04/19 12/04/19 04:00 05:00 06:00 Temperature Pulse Rate 74 70 85 Pulse Rate [ Anterior Bilateral Throughout] Respiratory 20 15 12 Rate Respiratory Rate [Anterior Bilateral Throughout] Blood Pressure 120/78 115/81 120/90 O2 Sat by Pulse 94 Oximetry 12/04/19 07:51 Temperature 97.9 F Pulse Rate Pulse Rate [ Anterior Bilateral Throughout] Respiratory Rate Respiratory Rate [Anterior Bilateral Throughout] Blood Pressure O2 Sat by Pulse Oximetry General appearance: Present: no acute distress, well-nourished - EENT Eyes: PERRL, EOM intact ENT: hearing intact, clear oral mucosa Ears: bilateral: normal - Neck Neck: supple, normal ROM - Respiratory Respiratory effort: normal Respiratory: bilateral: CTA, rhonchi, wheezing - Breasts Breasts: normal - Cardiovascular Heart rate: 78 Rhythm: regular Heart Sounds: Present: S1 & S2. Absent: gallop, rub Extremities: pulses intact, No edema, normal color, Full ROM - Gastrointestinal General gastrointestinal: Present: soft, non-tender, non-distended, normal bowel sounds - Genitourinary Male genitourinary: normal - Integumentary Integumentary: clear, warm, dry - Musculoskeletal Musculoskeletal: 1, strength equal bilaterally - Neurologic Neurologic: moves all extremities - Psychiatric Psychiatric: memory intact, appropriate mood/affect, intact judgment & insight - Allied health notes Allied health notes reviewed: nursing, case management - Labs CBC & Chem 7: 12/06/19 04:28 12/06/19 04:28 Labs: Abnormal lab results 12/03/19 Range/Units 11:34 POC Glucose 110 H (70-105) HEART Score - HEART Score Age: 45-65 Risk factors: 1-2 risk factors Troponin: 1-3x normal limit - Critical Actions Critical Actions: 4-6 pts:12-16.6% risk of adverse cardiac event. Should be admitted
--- NOTE | 2019-12-04 09:35 | Progress Note ---
Assessment and Plan Acute PE Acute respiratory failure Extubated 12/03/2019 Recommendations: Transition from lovenox to po eliquis when feasible Subjective Date of service: 12/04/19 Principal diagnosis: Acute respiratory failure with hypoxia Interval history: Patient is lying in bed, appears comfortable No arrhythmias recorded on tele Objective Vital Signs Temp Pulse Pulse Resp Resp BP Pulse Ox 12/04/19 07:51 97.9 F 12/04/19 06:00 85 12 120/90 94 12/04/19 05:00 70 15 115/81 12/04/19 04:00 74 20 120/78 12/04/19 03:47 73 12/04/19 03:46 98.4 F 12/04/19 03:00 72 12 120/78 12/04/19 02:00 82 12 124/89 96 12/04/19 01:00 73 13 114/77 95 12/04/19 00:00 73 12 113/75 92 12/03/19 23:45 83 13 124/83 96 12/03/19 23:31 98.8 F 12/03/19 23:30 73 12 116/77 95 12/03/19 23:00 73 19 115/79 12/03/19 22:30 73 15 114/77 12/03/19 22:00 75 18 117/80 12/03/19 21:30 86 19 116/77 98 12/03/19 21:00 84 15 110/86 94 12/03/19 20:46 97 12/03/19 20:45 78 18 114/77 12/03/19 20:32 83 15 12/03/19 20:31 84 15 94 12/03/19 20:15 76 18 112/76 90 12/03/19 20:00 76 23 124/81 12/03/19 19:57 98.2 F 12/03/19 19:45 76 17 116/81 93 12/03/19 19:30 74 15 119/82 12/03/19 19:15 118/84 12/03/19 19:00 116/82 12/03/19 18:45 108/81 12/03/19 18:30 115/82 12/03/19 18:15 69 14 114/71 12/03/19 18:00 72 14 109/72 92 12/03/19 17:50 71 15 12/03/19 17:45 73 14 117/76 93 12/03/19 17:30 76 12 114/75 95 12/03/19 17:24 95 12/03/19 17:15 72 12 108/74 12/03/19 17:00 70 12 108/74 93 12/03/19 16:45 74 22 116/77 93 12/03/19 16:30 78 26 H 108/73 12/03/19 16:15 73 21 120/76 12/03/19 16:00 98.2 F 74 17 116/72 12/03/19 15:45 75 23 115/69 94 12/03/19 15:30 73 15 114/72 12/03/19 15:15 71 18 116/67 95 12/03/19 15:00 74 17 108/69 96 12/03/19 14:45 72 12 114/71 94 12/03/19 14:30 74 28 H 116/78 93 12/03/19 14:15 74 14 119/77 95 12/03/19 14:00 74 14 110/75 12/03/19 13:45 73 15 111/73 95 12/03/19 13:30 70 13 123/73 12/03/19 13:15 73 15 111/77 93 12/03/19 13:00 74 14 107/77 12/03/19 12:52 76 14 12/03/19 12:45 73 14 112/78 95 12/03/19 12:35 95 12/03/19 12:30 82 22 109/69 95 12/03/19 12:15 75 14 113/75 92 12/03/19 12:00 98.3 F 87 17 115/74 90 12/03/19 11:45 72 15 116/71 12/03/19 11:30 75 15 113/75 89 12/03/19 11:15 76 16 106/74 12/03/19 11:00 72 17 112/70 90 12/03/19 10:45 80 19 117/73 91 12/03/19 10:30 82 18 107/72 89 12/03/19 10:15 88 14 110/68 81 L 12/03/19 10:09 118/63 12/03/19 10:08 80 118/63 12/03/19 10:00 87 19 110/68 91 12/03/19 09:45 88 20 98/65 94 - Physical Examination General: No Apparent Distress HEENT: Positive: PERRL, Other (DILATED PUPILS) Neck: Positive: neck supple Cardiac: Positive: Reg Rate and Rhythm Lungs: Positive: Normal Exam Neuro: Positive: Grossly Intact Abdomen: Positive: Soft Skin: Positive: Clear Extremities: Absent: edema
[2019-12-04] MEDS: IPRATROPIUM/ALBUTEROL SULFATE 3 ML AMPUL.NEB IH SCH ×4 (09:43→19:17)
[2019-12-04] MEDS: ENOXAPARIN 150 MG/1 ML INJ SUB-Q SCH ×2 (10:54→21:19)
[2019-12-04] MEDS: LISINOPRIL 5 MG TAB PO SCH (11:15)
[2019-12-04] MEDS: carvediloL 3.125 MG TAB PO SCH ×2 (11:15→21:18)
[2019-12-04] MEDS: FAMOTIDINE 20 MG TAB PO SCH ×2 (11:15→21:20)
[2019-12-04] MEDS: VALPROIC ACID 250 MG/5 ML ORAL LIQD FEEDTUBE SCH ×2 (14:44→21:19)
--- NOTE | 2019-12-04 19:16 | Progress Note ---
Assessment and Plan Imp: 1. Acute PE 2. Acute respiratory failure, hypoxia 3. A/C respiratory failure, hypercapnea 4. Morbid obesity 5. OHS Rec: 1. Cont. full dose anticoagulation 2. Cont. Solumedrol and Duonebs 3. Wean Flow and then FiO2 to keep sats 88-94% 4. Absence of significant infiltrates on CT chest argues against Covid-19 and PCR was negative 5. Mobilize as tolerated 6. Outpatient PFTs and PSG are needed 7. Complex decision-making Plan of care reviewed w/ patient, he understands/agrees Subjective Date of service: 12/04/19 Principal diagnosis: Acute respiratory failure with hypoxia Interval history: No events. Alert and awake, asking for water. SOB is improving. No new complaints. Active Medications Acetaminophen (Tylenol) 650 mg PO Q4H PRN PRN Reason: Pain MILD(1-3)/Fever >100.5/DIXON Last Admin: 11/29/19 23:20 Dose: 650 mg Documented by: Albuterol/Ipratropium (Duoneb *Not For Prn Use*) 1 ampul IH Q3H PRN PRN Reason: Wheezing Last Admin: 11/28/19 02:00 Dose: 1 ampul Documented by: Albuterol/Ipratropium (Duoneb *Not For Prn Use*) 1 ampul IH QIDRT [facility] Last Admin: 12/04/19 15:49 Dose: 1 ampul Documented by: Lipase/Protease/Amylase ([place] 10,500 Unit) 1 each FEEDTUBE PRN PRN PRN Reason: For Clogged Feeding Tube Carvedilol (Coreg) 3.125 mg PO BID [facility] Last Admin: 12/04/19 11:15 Dose: Not Given Documented by: Enoxaparin Sodium (Enoxaparin) 150 mg SUB-Q Q12HR [facility] Last Admin: 12/04/19 10:54 Dose: 150 mg Documented by: Famotidine (Pepcid) 20 mg PO BID [facility] Last Admin: 12/04/19 11:15 Dose: Not Given Documented by: Furosemide (Lasix) 40 mg IV 0600,1800 [facility] Last Admin: 12/04/19 18:36 Dose: 40 mg Documented by: Hydromorphone HCl (Dilaudid) 0.5 mg IV Q3H PRN PRN Reason: Pain , Severe (7-10) Last Admin: 11/27/19 20:14 Dose: 0.5 mg Documented by: Lisinopril (Zestril) 2.5 mg PO QDAY [facility] Last Admin: 12/04/19 11:15 Dose: Not Given Documented by: Lorazepam (Ativan) 0.5 mg IV Q3H PRN PRN Reason: Agitation Last Admin: 11/27/19 20:21 Dose: 0.5 mg Documented by: Methylprednisolone Sodium Succinate (Solu-Medrol) 40 mg IV Q8HR [facility] Last Admin: 12/04/19 14:44 Dose: 40 mg Documented by: Metoclopramide HCl (Reglan) 10 mg IV Q6H PRN PRN Reason: Nausea And Vomiting Morphine Sulfate (Morphine) 2 mg IV Q4H PRN PRN Reason: Pain, Moderate (4-6) Olanzapine (Zyprexa) 20 mg PO HS [facility] Last Admin: 12/03/19 22:00 Dose: Not Given Documented by: Olanzapine (Zyprexa) 10 mg PO DAILY [facility] Last Admin: 12/04/19 14:44 Dose: 10 mg Documented by: Ondansetron HCl (Zofran) 4 mg IV Q3H PRN PRN Reason: Nausea And Vomiting Simple Syrup (Simple Syrup) 15 ml FEEDTUBE PRN PRN PRN Reason: Hypoglycemia Simple Syrup (Simple Syrup) 30 ml FEEDTUBE PRN PRN PRN Reason: Hypoglycemia Sodium Bicarbonate (Sodium Bicarbonate) 325 mg FEEDTUBE PRN PRN PRN Reason: For Clogged Feeding Tube Sodium Chloride (Sodium Chloride Flush Syringe 10 Ml) 10 ml IV BID [facility] Last Admin: 12/04/19 10:54 Dose: 10 ml Documented by: Sodium Chloride (Sodium Chloride Flush Syringe 10 Ml) 10 ml IV PRN PRN PRN Reason: LINE FLUSH Last Admin: 12/04/19 05:50 Dose: 10 ml Documented by: Valproic Acid (Depakene Liq) 250 mg FEEDTUBE BID [facility] Last Admin: 12/04/19 14:44 Dose: 250 mg Documented by: Objective Vital Signs - 12hr 12/04/19 12/04/19 12/04/19 07:51 08:00 08:57 Temperature 97.9 F Pulse Rate 75 Pulse Rate [ Anterior Bilateral Throughout] Respiratory 14 Rate Respiratory Rate [Anterior Bilateral Throughout] Blood Pressure 118/80 O2 Sat by Pulse 95 Oximetry 12/04/19 12/04/19 12/04/19 09:00 09:43 10:00 Temperature Pulse Rate 77 80 Pulse Rate [ 81 Anterior Bilateral Throughout] Respiratory 14 12 Rate Respiratory 20 Rate [Anterior Bilateral Throughout] Blood Pressure 110/72 123/79 O2 Sat by Pulse 91 95 Oximetry 12/04/19 12/04/19 12/04/19 11:00 12:00 12:53 Temperature 97.9 F Pulse Rate 86 83 Pulse Rate [ 75 Anterior Bilateral Throughout] Respiratory 17 13 Rate Respiratory 18 Rate [Anterior Bilateral Throughout] Blood Pressure 113/83 118/77 O2 Sat by Pulse 97 95 95 Oximetry 12/04/19 12/04/19 12/04/19 13:00 14:00 15:00 Temperature Pulse Rate 75 73 78 Pulse Rate [ Anterior Bilateral Throughout] Respiratory 11 L 13 13 Rate Respiratory Rate [Anterior Bilateral Throughout] Blood Pressure 126/88 125/83 126/85 O2 Sat by Pulse 95 92 Oximetry 12/04/19 12/04/19 12/04/19 15:49 16:00 17:00 Temperature 97.9 F Pulse Rate 79 89 Pulse Rate [ 76 Anterior Bilateral Throughout] Respiratory 13 11 L Rate Respiratory 18 Rate [Anterior Bilateral Throughout] Blood Pressure 123/81 108/77 O2 Sat by Pulse 90 Oximetry 12/04/19 18:00 Temperature Pulse Rate 80 Pulse Rate [ Anterior Bilateral Throughout] Respiratory 13 Rate Respiratory Rate [Anterior Bilateral Throughout] Blood Pressure 109/82 O2 Sat by Pulse 92 Oximetry Constitutional: no acute distress, alert Eyes: non-icteric ENT: oropharynx moist Neck: supple Effort: normal Ascultation: Bilateral: wheezes (bilateral wheezes) Cardiovascular: regular rate and rhythm (no mrg) Gastrointestinal: normoactive bowel sounds, soft, non-tender, non-distended Integumentary: normal Extremities: no cyanosis, no edema, pink and warm Neurologic: normal mental status, non-focal exam, pupils equal and round, CN II- XII normal Psychiatric: mood appropriate, affect normal CBC and BMP: 12/02/19 05:03 12/02/19 05:03 ABG, PT/INR, D-dimer: ABG ABG pH 7.458 pH Units (7.350-7.450) H 12/02/19 04:08 POC ABG pCO2 61.7 mmHg (32.0-48.0) H 11/30/19 04:40 ABG pCO2 60.1 mm Hg 12/02/19 04:08 POC ABG pO2 86.6 mmHg (83-108) 11/30/19 04:40 ABG pO2 66.2 mm Hg (80.0-90.0) L 12/02/19 04:08 POC ABG HCO3 39.2 11/30/19 04:40 ABG O2 Saturation 94.4 % (95.0-99.0) L 12/02/19 04:08 PT/INR, D-dimer PT 14.6 Sec. (12.2-14.9) 11/27/19 12:08 INR 1.13 (0.87-1.13) 11/27/19 12:08 D-Dimer 2939.43 ng/mlDDU (0-234) H 12/01/19 14:29 Abnormal lab findings: Abnormal Labs 11/27/19 11/27/19 11/27/19 11:55 12:08 12:08 WBC Hgb Hct 45.8 H MCV 97 H Seg Neuts % (Manual) 76.0 H Lymphocytes % (Manual) 3.0 L Monocytes % (Manual) 17.0 H Nucleated RBC % 1.0 H Seg Neutrophils # Man 7.9 H Lymphocytes # (Manual) 0.3 L Monocytes # (Manual) 1.8 H D-Dimer ABG pH 7.250 L POC ABG pCO2 POC ABG pO2 ABG pO2 61.4 L ABG HCO3 36.5 H ABG O2 Saturation 86.3 L ABG Base Excess 5.9 H ABG Potassium ABG Chloride ABG Glucose Oxyhemoglobin 81.6 L Sodium Potassium 5.5 H Chloride 93.8 L Carbon Dioxide 38 H BUN 75 H Glucose 109 H POC Glucose Calcium 8.3 L Magnesium 3.00 H Ferritin AST 505 H ALT 375 H Lactate Dehydrogenase 408 H C-Reactive Protein 19.50 H NT-Pro-B Natriuret Pep Total Protein Albumin 3.5 L Triglycerides Arterial Blood Glucose Arterial Blood Ionized Calcium Salicylates Acetaminophen 11/27/19 11/27/19 11/27/19 12:08 12:08 12:08 WBC Hgb Hct MCV Seg Neuts % (Manual) Lymphocytes % (Manual) Monocytes % (Manual) Nucleated RBC % Seg Neutrophils # Man Lymphocytes # (Manual) Monocytes # (Manual) D-Dimer ABG pH POC ABG pCO2 POC ABG pO2 ABG pO2 ABG HCO3 ABG O2 Saturation ABG Base Excess ABG Potassium ABG Chloride ABG Glucose Oxyhemoglobin Sodium Potassium Chloride Carbon Dioxide BUN Glucose POC Glucose Calcium Magnesium Ferritin 818.7 H AST ALT Lactate Dehydrogenase C-Reactive Protein NT-Pro-B Natriuret Pep Total Protein Albumin Triglycerides Arterial Blood Glucose Arterial Blood Ionized Calcium Salicylates < 0.3 L Acetaminophen 5.0 L 11/27/19 11/27/19 11/28/19 12:22 22:40 01:45 WBC Hgb Hct MCV Seg Neuts % (Manual) Lymphocytes % (Manual) Monocytes % (Manual) Nucleated RBC % Seg Neutrophils # Man Lymphocytes # (Manual) Monocytes # (Manual) D-Dimer ABG pH 7.086 L 7.257 L POC ABG pCO2 133.5 H 81.8 H POC ABG pO2 78.4 L 172.6 H ABG pO2 ABG HCO3 ABG O2 Saturation ABG Base Excess ABG Potassium ABG Chloride ABG Glucose Oxyhemoglobin Sodium Potassium Chloride Carbon Dioxide BUN Glucose POC Glucose Calcium Magnesium Ferritin AST ALT Lactate Dehydrogenase C-Reactive Protein NT-Pro-B Natriuret Pep 82473 H Total Protein Albumin Triglycerides Arterial Blood Glucose Arterial Blood Ionized Calcium Salicylates Acetaminophen 11/28/19 11/28/19 11/28/19 05:25 12:36 12:36 WBC 11.3 H Hgb Hct MCV 97 H Seg Neuts % (Manual) Lymphocytes % (Manual) Monocytes % (Manual) Nucleated RBC % Seg Neutrophils # Man Lymphocytes # (Manual) Monocytes # (Manual) D-Dimer ABG pH POC ABG pCO2 64.2 H POC ABG pO2 68.1 L ABG pO2 ABG HCO3 ABG O2 Saturation ABG Base Excess ABG Potassium ABG Chloride ABG Glucose Oxyhemoglobin Sodium Potassium 5.4 H Chloride 95.8 L Carbon Dioxide 38 H BUN 46 H Glucose 114 H POC Glucose Calcium 8.0 L Magnesium Ferritin AST 169 H ALT 284 H Lactate Dehydrogenase C-Reactive Protein NT-Pro-B Natriuret Pep Total Protein 5.9 L Albumin 2.9 L Triglycerides Arterial Blood Glucose Arterial Blood Ionized Calcium Salicylates Acetaminophen 11/28/19 11/29/19 11/29/19 15:41 02:42 12:02 WBC Hgb Hct MCV Seg Neuts % (Manual) Lymphocytes % (Manual) Monocytes % (Manual) Nucleated RBC % Seg Neutrophils # Man Lymphocytes # (Manual) Monocytes # (Manual) D-Dimer ABG pH POC ABG pCO2 57.2 H POC ABG pO2 80.2 L ABG pO2 ABG HCO3 ABG O2 Saturation ABG Base Excess ABG Potassium 4.6 H ABG Chloride 97.0 L ABG Glucose 131 H Oxyhemoglobin Sodium Potassium Chloride Carbon Dioxide BUN Glucose POC Glucose 122 H 123 H Calcium Magnesium Ferritin AST ALT Lactate Dehydrogenase C-Reactive Protein NT-Pro-B Natriuret Pep Total Protein Albumin Triglycerides Arterial Blood Glucose 131 H Arterial Blood Ionized Calcium 4.1 L Salicylates Acetaminophen 11/29/19 11/29/19 11/30/19 14:48 17:23 04:30 WBC Hgb Hct MCV Seg Neuts % (Manual) Lymphocytes % (Manual) Monocytes % (Manual) Nucleated RBC % Seg Neutrophils # Man Lymphocytes # (Manual) Monocytes # (Manual) D-Dimer ABG pH POC ABG pCO2 POC ABG pO2 ABG pO2 ABG HCO3 ABG O2 Saturation ABG Base Excess ABG Potassium ABG Chloride ABG Glucose Oxyhemoglobin Sodium 148 H Potassium Chloride 97.4 L Carbon Dioxide 38 H BUN 51 H Glucose 147 H POC Glucose 127 H Calcium 7.9 L Magnesium Ferritin AST ALT Lactate Dehydrogenase C-Reactive Protein NT-Pro-B Natriuret Pep Total Protein Albumin Triglycerides 216 H Arterial Blood Glucose Arterial Blood Ionized Calcium Salicylates Acetaminophen 11/30/19 11/30/19 11/30/19 04:31 04:40 12:33 WBC Hgb Hct MCV Seg Neuts % (Manual) Lymphocytes % (Manual) Monocytes % (Manual) Nucleated RBC % Seg Neutrophils # Man Lymphocytes # (Manual) Monocytes # (Manual) D-Dimer ABG pH POC ABG pCO2 61.7 H POC ABG pO2 ABG pO2 ABG HCO3 ABG O2 Saturation ABG Base Excess ABG Potassium 4.6 H ABG Chloride 97.0 L ABG Glucose 167 H Oxyhemoglobin Sodium Potassium Chloride 96.6 L Carbon Dioxide 37 H BUN 52 H Glucose 173 H POC Glucose 164 H Calcium 8.2 L Magnesium Ferritin AST 86 H ALT 219 H Lactate Dehydrogenase C-Reactive Protein NT-Pro-B Natriuret Pep Total Protein 6.1 L Albumin 3.0 L Triglycerides Arterial Blood Glucose 167 H Arterial Blood Ionized Calcium 4.4 L Salicylates Acetaminophen 11/30/19 12/01/19 12/01/19 18:38 00:26 04:16 WBC Hgb Hct MCV Seg Neuts % (Manual) Lymphocytes % (Manual) Monocytes % (Manual) Nucleated RBC % Seg Neutrophils # Man Lymphocytes # (Manual) Monocytes # (Manual) D-Dimer ABG pH POC ABG pCO2 POC ABG pO2 ABG pO2 186.5 H ABG HCO3 42.8 H ABG O2 Saturation 99.1 H ABG Base Excess 14.4 H ABG Potassium ABG Chloride ABG Glucose Oxyhemoglobin Sodium Potassium Chloride Carbon Dioxide BUN Glucose POC Glucose 142 H 158 H Calcium Magnesium Ferritin AST ALT Lactate Dehydrogenase C-Reactive Protein NT-Pro-B Natriuret Pep Total Protein Albumin Triglycerides Arterial Blood Glucose Arterial Blood Ionized Calcium Salicylates Acetaminophen 12/01/19 12/01/19 12/01/19 05:35 12:17 14:29 WBC Hgb Hct MCV Seg Neuts % (Manual) Lymphocytes % (Manual) Monocytes % (Manual) Nucleated RBC % Seg Neutrophils # Man Lymphocytes # (Manual) Monocytes # (Manual) D-Dimer 2939.43 H ABG pH POC ABG pCO2 POC ABG pO2 ABG pO2 ABG HCO3 ABG O2 Saturation ABG Base Excess ABG Potassium ABG Chloride ABG Glucose Oxyhemoglobin Sodium Potassium Chloride Carbon Dioxide BUN Glucose POC Glucose 151 H 191 H Calcium Magnesium Ferritin AST ALT Lactate Dehydrogenase C-Reactive Protein NT-Pro-B Natriuret Pep Total Protein Albumin Triglycerides Arterial Blood Glucose Arterial Blood Ionized Calcium Salicylates Acetaminophen 12/01/19 12/01/19 12/01/19 14:29 14:29 17:59 WBC Hgb Hct MCV Seg Neuts % (Manual) Lymphocytes % (Manual) Monocytes % (Manual) Nucleated RBC % Seg Neutrophils # Man Lymphocytes # (Manual) Monocytes # (Manual) D-Dimer ABG pH POC ABG pCO2 POC ABG pO2 ABG pO2 ABG HCO3 ABG O2 Saturation ABG Base Excess ABG Potassium ABG Chloride ABG Glucose Oxyhemoglobin Sodium Potassium Chloride Carbon Dioxide BUN Glucose POC Glucose 147 H Calcium Magnesium Ferritin 369.3 H AST ALT Lactate Dehydrogenase C-Reactive Protein 2.60 H NT-Pro-B Natriuret Pep Total Protein Albumin Triglycerides Arterial Blood Glucose Arterial Blood Ionized Calcium Salicylates Acetaminophen 10/14/20 10/15/20 10/15/20 23:58 04:08 05:03 WBC 12.2 H Hgb 15.8 H Hct 47.8 H MCV 95 H Seg Neuts % (Manual) Lymphocytes % (Manual) Monocytes % (Manual) Nucleated RBC % Seg Neutrophils # Man Lymphocytes # (Manual) Monocytes # (Manual) D-Dimer ABG pH 7.458 H POC ABG pCO2 POC ABG pO2 ABG pO2 66.2 L ABG HCO3 41.6 H ABG O2 Saturation 94.4 L ABG Base Excess 14.5 H ABG Potassium ABG Chloride ABG Glucose Oxyhemoglobin 92.4 L Sodium Potassium Chloride Carbon Dioxide BUN Glucose POC Glucose 126 H Calcium Magnesium Ferritin AST ALT Lactate Dehydrogenase C-Reactive Protein NT-Pro-B Natriuret Pep Total Protein Albumin Triglycerides Arterial Blood Glucose Arterial Blood Ionized Calcium Salicylates Acetaminophen 12/02/19 12/02/19 12/02/19 05:03 05:36 12:17 WBC Hgb Hct MCV Seg Neuts % (Manual) Lymphocytes % (Manual) Monocytes % (Manual) Nucleated RBC % Seg Neutrophils # Man Lymphocytes # (Manual) Monocytes # (Manual) D-Dimer ABG pH POC ABG pCO2 POC ABG pO2 ABG pO2 ABG HCO3 ABG O2 Saturation ABG Base Excess ABG Potassium ABG Chloride ABG Glucose Oxyhemoglobin Sodium 151 H Potassium Chloride Carbon Dioxide 40 H BUN 54 H Glucose 142 H POC Glucose 136 H 135 H Calcium Magnesium Ferritin AST ALT Lactate Dehydrogenase C-Reactive Protein NT-Pro-B Natriuret Pep Total Protein Albumin Triglycerides Arterial Blood Glucose Arterial Blood Ionized Calcium Salicylates Acetaminophen 12/02/19 12/02/19 12/03/19 17:59 23:37 05:27 WBC Hgb Hct MCV Seg Neuts % (Manual) Lymphocytes % (Manual) Monocytes % (Manual) Nucleated RBC % Seg Neutrophils # Man Lymphocytes # (Manual) Monocytes # (Manual) D-Dimer ABG pH POC ABG pCO2 POC ABG pO2 ABG pO2 ABG HCO3 ABG O2 Saturation ABG Base Excess ABG Potassium ABG Chloride ABG Glucose Oxyhemoglobin Sodium Potassium Chloride Carbon Dioxide BUN Glucose POC Glucose 139 H 120 H 110 H Calcium Magnesium Ferritin AST ALT Lactate Dehydrogenase C-Reactive Protein NT-Pro-B Natriuret Pep Total Protein Albumin Triglycerides Arterial Blood Glucose Arterial Blood Ionized Calcium Salicylates Acetaminophen 12/03/19 12/04/19 11:34 17:42 WBC Hgb Hct MCV Seg Neuts % (Manual) Lymphocytes % (Manual) Monocytes % (Manual) Nucleated RBC % Seg Neutrophils # Man Lymphocytes # (Manual) Monocytes # (Manual) D-Dimer ABG pH POC ABG pCO2 POC ABG pO2 ABG pO2 ABG HCO3 ABG O2 Saturation ABG Base Excess ABG Potassium ABG Chloride ABG Glucose Oxyhemoglobin Sodium Potassium Chloride Carbon Dioxide BUN Glucose POC Glucose 110 H 149 H Calcium Magnesium Ferritin AST ALT Lactate Dehydrogenase C-Reactive Protein NT-Pro-B Natriuret Pep Total Protein Albumin Triglycerides Arterial Blood Glucose Arterial Blood Ionized Calcium Salicylates Acetaminophen Chest x-ray: report reviewed, image reviewed CT scan - chest: report reviewed, image reviewed
[2019-12-05] MEDS: methylPREDNISolone Sod Succinate 125 MG/2 ML INJ IV SCH ×3 (05:15→22:19)
[2019-12-05] MEDS: FUROSEMIDE 40 MG/4 ML INJ IV SCH ×2 (05:16→18:37)
[2019-12-05] MEDS: IPRATROPIUM/ALBUTEROL SULFATE 3 ML AMPUL.NEB IH SCH ×4 (07:26→20:21)
--- NOTE | 2019-12-05 10:32 | Progress Note ---
Assessment and Plan Acute PE Acute respiratory failure Extubated 12/03/2019 Recommendations: Transition from lovenox to po eliquis when feasible Subjective Date of service: 12/05/19 Principal diagnosis: Acute respiratory failure with hypoxia Interval history: Patient is lying in bed, appears comfortable No arrhythmias recorded on tele Objective Vital Signs Temp Pulse Pulse Pulse Resp Resp BP 12/05/19 10:00 18 12/05/19 08:24 98.1 F 79 18 108/80 12/05/19 08:16 77 12/05/19 07:26 76 18 12/05/19 03:50 98.7 F 80 18 108/75 12/05/19 02:19 12/04/19 23:32 77 12/04/19 23:25 97.7 F 76 18 107/75 12/04/19 22:00 77 15 114/84 12/04/19 21:18 77 108/74 12/04/19 21:00 88 13 108/74 12/04/19 20:00 98.1 F 82 76 21 127/85 12/04/19 19:20 82 14 12/04/19 19:18 12/04/19 19:00 84 11 L 122/89 12/04/19 18:00 80 13 109/82 12/04/19 17:00 89 11 L 108/77 12/04/19 16:00 97.9 F 79 13 123/81 12/04/19 15:49 76 18 12/04/19 15:00 78 13 126/85 12/04/19 14:00 73 13 125/83 12/04/19 13:00 75 11 L 126/88 12/04/19 12:53 75 18 12/04/19 12:00 97.9 F 83 13 118/77 12/04/19 11:00 86 17 113/83 Pulse Ox 12/05/19 10:00 95 12/05/19 08:24 91 12/05/19 08:16 12/05/19 07:26 94 12/05/19 03:50 93 12/05/19 02:19 97 12/04/19 23:32 12/04/19 23:25 92 12/04/19 22:00 87 12/04/19 21:18 12/04/19 21:00 92 12/04/19 20:00 95 12/04/19 19:20 12/04/19 19:18 97 12/04/19 19:00 12/04/19 18:00 92 12/04/19 17:00 12/04/19 16:00 90 12/04/19 15:49 12/04/19 15:00 12/04/19 14:00 92 12/04/19 13:00 95 12/04/19 12:53 95 12/04/19 12:00 95 12/04/19 11:00 97 - Physical Examination General: No Apparent Distress HEENT: Positive: PERRL, Other (DILATED PUPILS) Neck: Positive: neck supple Cardiac: Positive: Reg Rate and Rhythm Lungs: Positive: Normal Exam Neuro: Positive: Grossly Intact Abdomen: Positive: Soft Skin: Positive: Clear Extremities: Absent: edema
[2019-12-05] MEDS: carvediloL 3.125 MG TAB PO SCH ×2 (11:20→21:47)
[2019-12-05] MEDS: VALPROIC ACID 250 MG/5 ML ORAL LIQD FEEDTUBE SCH ×2 (11:20→22:19)
[2019-12-05] MEDS: LISINOPRIL 5 MG TAB PO SCH (11:21)
[2019-12-05] MEDS: ENOXAPARIN 150 MG/1 ML INJ SUB-Q SCH ×2 (11:21→22:18)
[2019-12-05] MEDS: FAMOTIDINE 20 MG TAB PO SCH ×2 (11:21→22:18)
--- NOTE | 2019-12-05 12:02 | Progress Note ---
Assessment and Plan - Patient Problems (1) Acute hypoxemic respiratory failure Current Visit: Yes Status: Acute Plan to address problem: Patient is extubated Continue nasal cannula oxygen and nebulizer treatments (2) Hypercapnic respiratory failure Current Visit: Yes Status: Acute Qualifiers: Chronicity: acute on chronic Qualified Code(s): J96.22 - Acute and chronic respiratory failure with hypercapnia Plan to address problem: Duo nebs [id number] and every 3 as needed IV Solu-Medrol decreased to 20 mg every 8 (3) Suspected 2019 novel coronavirus infection Current Visit: Yes Status: Acute Plan to address problem: Coronavirus PCR negative (4) Hyperkalemia Current Visit: Yes Status: Acute Plan to address problem: Treated (5) Hypertension Current Visit: Yes Status: Chronic Qualifiers: Hypertension type: essential hypertension Qualified Code(s): I10 - Essential (primary) hypertension Plan to address problem: Continue antihypertensives (6) Acute exacerbation of CHF (congestive heart failure) Current Visit: Yes Status: Acute Qualifiers: Heart failure type: combined systolic and diastolic Qualified Code(s): I 50.43 - Acute on chronic combined systolic (congestive) and diastolic (congestive) heart failure Plan to address problem: BNP is high Small pleural effusion on the right side Continue Lasix Ejection fraction is 55 to 60% Lasix may be decreased to once a day (7) Elevated LFTs Current Visit: Yes Status: Acute Plan to address problem: Passive congestion of the liver secondary to CHF Improved (8) Coronary artery disease Current Visit: Yes Status: Chronic Qualifiers: Coronary Disease-Associated Artery/Lesion type: [place] artery [place] vs. transplanted heart: [place] heart Plan to address problem: Continue aspirin and Plavix (9) DVT prophylaxis Current Visit: Yes Status: Acute Plan to address problem: On Lovenox and GI prophylaxis (10) Discharge planning issues Current Visit: Yes Status: Acute Plan to address problem: Patient may be discharged after physical therapy Subjective Date of service: 12/05/19 Principal diagnosis: Acute respiratory failure with hypoxia Interval history: Patient extubated on 12/03/2019 and transferred to the floor yesterday Patient still coughing and with restless Objective - Constitutional Vitals: Vital Signs - 12hr 12/05/19 12/05/19 12/05/19 02:19 03:50 07:26 Temperature 98.7 F Pulse Rate 80 Pulse Rate [ 76 Anterior Bilateral Throughout] Respiratory 18 Rate Respiratory 18 Rate [Anterior Bilateral Throughout] Blood Pressure 108/75 O2 Sat by Pulse 97 93 94 Oximetry 12/05/19 12/05/19 12/05/19 08:16 08:24 10:00 Temperature 98.1 F Pulse Rate 77 79 Pulse Rate [ Anterior Bilateral Throughout] Respiratory 18 18 Rate Respiratory Rate [Anterior Bilateral Throughout] Blood Pressure 108/80 O2 Sat by Pulse 91 95 Oximetry General appearance: Present: no acute distress, well-nourished - EENT Eyes: PERRL, EOM intact ENT: hearing intact, clear oral mucosa Ears: bilateral: normal - Neck Neck: supple, normal ROM - Respiratory Respiratory effort: normal Respiratory: bilateral: CTA, rhonchi - Breasts Breasts: normal - Cardiovascular Heart rate: 78 Rhythm: regular Heart Sounds: Present: S1 & S2. Absent: gallop, rub Extremities: pulses intact, No edema, normal color, Full ROM - Gastrointestinal General gastrointestinal: Present: soft, non-tender, non-distended, normal bowel sounds - Genitourinary Male genitourinary: normal - Integumentary Integumentary: clear, warm, dry - Musculoskeletal Musculoskeletal: 1, strength equal bilaterally - Neurologic Neurologic: moves all extremities - Psychiatric Psychiatric: memory intact, appropriate mood/affect, intact judgment & insight - Labs CBC & Chem 7: 12/06/19 04:28 12/06/19 04:28 Labs: Abnormal lab results 12/04/19 Range/Units 17:42 POC Glucose 149 H (70-105) HEART Score - HEART Score Age: 45-65 Risk factors: 1-2 risk factors Troponin: 1-3x normal limit - Critical Actions Critical Actions: 4-6 pts:12-16.6% risk of adverse cardiac event. Should be admitted
[2019-12-05] MEDS: LORazepam 2 MG/ML VIAL IV PRN (15:46)
--- NOTE | 2019-12-05 19:55 | Progress Note ---
Assessment and Plan Imp: 1. Acute PE 2. Acute respiratory failure, hypoxia 3. A/C respiratory failure, hypercapnea 4. Morbid obesity 5. OHS 6. Hypernatremia 7. COPD exac. Rec: 1. Cont. full dose anticoagulation 2. Cont. Solumedrol and Duonebs 3. Wean Flow and then FiO2 to keep sats 88-94% 4. Absence of significant infiltrates on CT chest argues against Covid-19 and PCR was negative 5. Mobilize as tolerated 6. Outpatient PFTs and PSG are needed 7. Diet as per ST; increase PO water intake if possible and monitor sodium -> labs in AM 8. Complex decision-making Plan of care reviewed w/ patient, he understands/agrees Subjective Date of service: 12/05/19 Principal diagnosis: Acute respiratory failure with hypoxia Interval history: No events. Alert and awake, tolerating PO. SOB is improving. No new complaints. Active Medications Acetaminophen (Tylenol) 650 mg PO Q4H PRN PRN Reason: Pain MILD(1-3)/Fever >100.5/DIXON Last Admin: 11/29/19 23:20 Dose: 650 mg Documented by: Albuterol/Ipratropium (Duoneb *Not For Prn Use*) 1 ampul IH Q3H PRN PRN Reason: Wheezing Last Admin: 11/28/19 02:00 Dose: 1 ampul Documented by: Albuterol/Ipratropium (Duoneb *Not For Prn Use*) 1 ampul IH QIDRT [facility] Last Admin: 12/05/19 15:05 Dose: 1 ampul Documented by: Lipase/Protease/Amylase ([place] 10,500 Unit) 1 each FEEDTUBE PRN PRN PRN Reason: For Clogged Feeding Tube Carvedilol (Coreg) 3.125 mg PO BID [facility] Last Admin: 12/05/19 11:20 Dose: 3.125 mg Documented by: Enoxaparin Sodium (Enoxaparin) 150 mg SUB-Q Q12HR [facility] Last Admin: 12/05/19 11:21 Dose: 150 mg Documented by: Famotidine (Pepcid) 20 mg PO BID [facility] Last Admin: 12/05/19 11:21 Dose: 20 mg Documented by: Furosemide (Lasix) 40 mg IV 0600,1800 [facility] Last Admin: 12/05/19 18:37 Dose: 40 mg Documented by: Hydromorphone HCl (Dilaudid) 0.5 mg IV Q3H PRN PRN Reason: Pain , Severe (7-10) Last Admin: 11/27/19 20:14 Dose: 0.5 mg Documented by: Lisinopril (Zestril) 2.5 mg PO QDAY [facility] Last Admin: 12/05/19 11:21 Dose: 2.5 mg Documented by: Lorazepam (Ativan) 0.5 mg IV Q3H PRN PRN Reason: Agitation Last Admin: 12/05/19 15:46 Dose: 0.5 mg Documented by: Methylprednisolone Sodium Succinate (Solu-Medrol) 40 mg IV Q8HR [facility] Last Admin: 12/05/19 13:12 Dose: 40 mg Documented by: Metoclopramide HCl (Reglan) 10 mg IV Q6H PRN PRN Reason: Nausea And Vomiting Morphine Sulfate (Morphine) 2 mg IV Q4H PRN PRN Reason: Pain, Moderate (4-6) Olanzapine (Zyprexa) 20 mg PO HS [facility] Last Admin: 12/04/19 21:23 Dose: 20 mg Documented by: Olanzapine (Zyprexa) 10 mg PO DAILY [facility] Last Admin: 12/05/19 11:21 Dose: 10 mg Documented by: Ondansetron HCl (Zofran) 4 mg IV Q3H PRN PRN Reason: Nausea And Vomiting Simple Syrup (Simple Syrup) 15 ml FEEDTUBE PRN PRN PRN Reason: Hypoglycemia Simple Syrup (Simple Syrup) 30 ml FEEDTUBE PRN PRN PRN Reason: Hypoglycemia Sodium Bicarbonate (Sodium Bicarbonate) 325 mg FEEDTUBE PRN PRN PRN Reason: For Clogged Feeding Tube Sodium Chloride (Sodium Chloride Flush Syringe 10 Ml) 10 ml IV BID [facility] Last Admin: 12/05/19 11:22 Dose: 10 ml Documented by: Sodium Chloride (Sodium Chloride Flush Syringe 10 Ml) 10 ml IV PRN PRN PRN Reason: LINE FLUSH Last Admin: 12/04/19 05:50 Dose: 10 ml Documented by: Valproic Acid (Depakene Liq) 250 mg FEEDTUBE BID [facility] Last Admin: 12/05/19 11:20 Dose: 250 mg Documented by: Objective Vital Signs - 12hr 12/05/19 12/05/19 12/05/19 08:16 08:24 10:00 Temperature 98.1 F Pulse Rate 77 79 Pulse Rate [ Anterior Bilateral Throughout] Respiratory 18 18 Rate Respiratory Rate [Anterior Bilateral Throughout] Blood Pressure 108/80 O2 Sat by Pulse 91 95 Oximetry 12/05/19 12/05/19 12/05/19 11:57 12:23 13:30 Temperature 98.1 F Pulse Rate 92 H Pulse Rate [ 82 Anterior Bilateral Throughout] Respiratory 18 Rate Respiratory 18 Rate [Anterior Bilateral Throughout] Blood Pressure 108/75 O2 Sat by Pulse 95 93 94 Oximetry 12/05/19 12/05/19 15:05 15:51 Temperature 98.1 F Pulse Rate 83 Pulse Rate [ 88 Anterior Bilateral Throughout] Respiratory 18 Rate Respiratory 20 Rate [Anterior Bilateral Throughout] Blood Pressure 105/73 O2 Sat by Pulse 94 93 Oximetry Constitutional: no acute distress, alert Eyes: non-icteric ENT: oropharynx moist Neck: supple Effort: normal Ascultation: Bilateral: wheezes (bilateral wheezes) Cardiovascular: regular rate and rhythm (no mrg) Gastrointestinal: normoactive bowel sounds, soft, non-tender, non-distended Integumentary: normal Extremities: no cyanosis, no edema, pink and warm Neurologic: normal mental status, non-focal exam, pupils equal and round, CN II- XII normal Psychiatric: mood appropriate, affect normal CBC and BMP: 12/02/19 05:03 12/02/19 05:03 ABG, PT/INR, D-dimer: ABG ABG pH 7.458 pH Units (7.350-7.450) H 12/02/19 04:08 POC ABG pCO2 61.7 mmHg (32.0-48.0) H 11/30/19 04:40 ABG pCO2 60.1 mm Hg 12/02/19 04:08 POC ABG pO2 86.6 mmHg (83-108) 11/30/19 04:40 ABG pO2 66.2 mm Hg (80.0-90.0) L 12/02/19 04:08 POC ABG HCO3 39.2 11/30/19 04:40 ABG O2 Saturation 94.4 % (95.0-99.0) L 12/02/19 04:08 PT/INR, D-dimer PT 14.6 Sec. (12.2-14.9) 11/27/19 12:08 INR 1.13 (0.87-1.13) 11/27/19 12:08 D-Dimer 2939.43 ng/mlDDU (0-234) H 12/01/19 14:29 Abnormal lab findings: Abnormal Labs 11/27/19 11/27/19 11/27/19 11:55 12:08 12:08 WBC Hgb Hct 45.8 H MCV 97 H Seg Neuts % (Manual) 76.0 H Lymphocytes % (Manual) 3.0 L Monocytes % (Manual) 17.0 H Nucleated RBC % 1.0 H Seg Neutrophils # Man 7.9 H Lymphocytes # (Manual) 0.3 L Monocytes # (Manual) 1.8 H D-Dimer ABG pH 7.250 L POC ABG pCO2 POC ABG pO2 ABG pO2 61.4 L ABG HCO3 36.5 H ABG O2 Saturation 86.3 L ABG Base Excess 5.9 H ABG Potassium ABG Chloride ABG Glucose Oxyhemoglobin 81.6 L Sodium Potassium 5.5 H Chloride 93.8 L Carbon Dioxide 38 H BUN 75 H Glucose 109 H POC Glucose Calcium 8.3 L Magnesium 3.00 H Ferritin AST 505 H ALT 375 H Lactate Dehydrogenase 408 H C-Reactive Protein 19.50 H NT-Pro-B Natriuret Pep Total Protein Albumin 3.5 L Triglycerides Arterial Blood Glucose Arterial Blood Ionized Calcium Salicylates Acetaminophen 11/27/19 11/27/19 11/27/19 12:08 12:08 12:08 WBC Hgb Hct MCV Seg Neuts % (Manual) Lymphocytes % (Manual) Monocytes % (Manual) Nucleated RBC % Seg Neutrophils # Man Lymphocytes # (Manual) Monocytes # (Manual) D-Dimer ABG pH POC ABG pCO2 POC ABG pO2 ABG pO2 ABG HCO3 ABG O2 Saturation ABG Base Excess ABG Potassium ABG Chloride ABG Glucose Oxyhemoglobin Sodium Potassium Chloride Carbon Dioxide BUN Glucose POC Glucose Calcium Magnesium Ferritin 818.7 H AST ALT Lactate Dehydrogenase C-Reactive Protein NT-Pro-B Natriuret Pep Total Protein Albumin Triglycerides Arterial Blood Glucose Arterial Blood Ionized Calcium Salicylates < 0.3 L Acetaminophen 5.0 L 11/27/19 11/27/19 11/28/19 12:22 22:40 01:45 WBC Hgb Hct MCV Seg Neuts % (Manual) Lymphocytes % (Manual) Monocytes % (Manual) Nucleated RBC % Seg Neutrophils # Man Lymphocytes # (Manual) Monocytes # (Manual) D-Dimer ABG pH 7.086 L 7.257 L POC ABG pCO2 133.5 H 81.8 H POC ABG pO2 78.4 L 172.6 H ABG pO2 ABG HCO3 ABG O2 Saturation ABG Base Excess ABG Potassium ABG Chloride ABG Glucose Oxyhemoglobin Sodium Potassium Chloride Carbon Dioxide BUN Glucose POC Glucose Calcium Magnesium Ferritin AST ALT Lactate Dehydrogenase C-Reactive Protein NT-Pro-B Natriuret Pep 96379 H Total Protein Albumin Triglycerides Arterial Blood Glucose Arterial Blood Ionized Calcium Salicylates Acetaminophen 11/28/19 11/28/19 11/28/19 05:25 12:36 12:36 WBC 11.3 H Hgb Hct MCV 97 H Seg Neuts % (Manual) Lymphocytes % (Manual) Monocytes % (Manual) Nucleated RBC % Seg Neutrophils # Man Lymphocytes # (Manual) Monocytes # (Manual) D-Dimer ABG pH POC ABG pCO2 64.2 H POC ABG pO2 68.1 L ABG pO2 ABG HCO3 ABG O2 Saturation ABG Base Excess ABG Potassium ABG Chloride ABG Glucose Oxyhemoglobin Sodium Potassium 5.4 H Chloride 95.8 L Carbon Dioxide 38 H BUN 46 H Glucose 114 H POC Glucose Calcium 8.0 L Magnesium Ferritin AST 169 H ALT 284 H Lactate Dehydrogenase C-Reactive Protein NT-Pro-B Natriuret Pep Total Protein 5.9 L Albumin 2.9 L Triglycerides Arterial Blood Glucose Arterial Blood Ionized Calcium Salicylates Acetaminophen 11/28/19 11/29/19 11/29/19 15:41 02:42 12:02 WBC Hgb Hct MCV Seg Neuts % (Manual) Lymphocytes % (Manual) Monocytes % (Manual) Nucleated RBC % Seg Neutrophils # Man Lymphocytes # (Manual) Monocytes # (Manual) D-Dimer ABG pH POC ABG pCO2 57.2 H POC ABG pO2 80.2 L ABG pO2 ABG HCO3 ABG O2 Saturation ABG Base Excess ABG Potassium 4.6 H ABG Chloride 97.0 L ABG Glucose 131 H Oxyhemoglobin Sodium Potassium Chloride Carbon Dioxide BUN Glucose POC Glucose 122 H 123 H Calcium Magnesium Ferritin AST ALT Lactate Dehydrogenase C-Reactive Protein NT-Pro-B Natriuret Pep Total Protein Albumin Triglycerides Arterial Blood Glucose 131 H Arterial Blood Ionized Calcium 4.1 L Salicylates Acetaminophen 11/29/19 11/29/19 11/30/19 14:48 17:23 04:30 WBC Hgb Hct MCV Seg Neuts % (Manual) Lymphocytes % (Manual) Monocytes % (Manual) Nucleated RBC % Seg Neutrophils # Man Lymphocytes # (Manual) Monocytes # (Manual) D-Dimer ABG pH POC ABG pCO2 POC ABG pO2 ABG pO2 ABG HCO3 ABG O2 Saturation ABG Base Excess ABG Potassium ABG Chloride ABG Glucose Oxyhemoglobin Sodium 148 H Potassium Chloride 97.4 L Carbon Dioxide 38 H BUN 51 H Glucose 147 H POC Glucose 127 H Calcium 7.9 L Magnesium Ferritin AST ALT Lactate Dehydrogenase C-Reactive Protein NT-Pro-B Natriuret Pep Total Protein Albumin Triglycerides 216 H Arterial Blood Glucose Arterial Blood Ionized Calcium Salicylates Acetaminophen 11/30/19 11/30/19 11/30/19 04:31 04:40 12:33 WBC Hgb Hct MCV Seg Neuts % (Manual) Lymphocytes % (Manual) Monocytes % (Manual) Nucleated RBC % Seg Neutrophils # Man Lymphocytes # (Manual) Monocytes # (Manual) D-Dimer ABG pH POC ABG pCO2 61.7 H POC ABG pO2 ABG pO2 ABG HCO3 ABG O2 Saturation ABG Base Excess ABG Potassium 4.6 H ABG Chloride 97.0 L ABG Glucose 167 H Oxyhemoglobin Sodium Potassium Chloride 96.6 L Carbon Dioxide 37 H BUN 52 H Glucose 173 H POC Glucose 164 H Calcium 8.2 L Magnesium Ferritin AST 86 H ALT 219 H Lactate Dehydrogenase C-Reactive Protein NT-Pro-B Natriuret Pep Total Protein 6.1 L Albumin 3.0 L Triglycerides Arterial Blood Glucose 167 H Arterial Blood Ionized Calcium 4.4 L Salicylates Acetaminophen 11/30/19 12/01/19 12/01/19 18:38 00:26 04:16 WBC Hgb Hct MCV Seg Neuts % (Manual) Lymphocytes % (Manual) Monocytes % (Manual) Nucleated RBC % Seg Neutrophils # Man Lymphocytes # (Manual) Monocytes # (Manual) D-Dimer ABG pH POC ABG pCO2 POC ABG pO2 ABG pO2 186.5 H ABG HCO3 42.8 H ABG O2 Saturation 99.1 H ABG Base Excess 14.4 H ABG Potassium ABG Chloride ABG Glucose Oxyhemoglobin Sodium Potassium Chloride Carbon Dioxide BUN Glucose POC Glucose 142 H 158 H Calcium Magnesium Ferritin AST ALT Lactate Dehydrogenase C-Reactive Protein NT-Pro-B Natriuret Pep Total Protein Albumin Triglycerides Arterial Blood Glucose Arterial Blood Ionized Calcium Salicylates Acetaminophen 12/01/19 12/01/19 12/01/19 05:35 12:17 14:29 WBC Hgb Hct MCV Seg Neuts % (Manual) Lymphocytes % (Manual) Monocytes % (Manual) Nucleated RBC % Seg Neutrophils # Man Lymphocytes # (Manual) Monocytes # (Manual) D-Dimer 2939.43 H ABG pH POC ABG pCO2 POC ABG pO2 ABG pO2 ABG HCO3 ABG O2 Saturation ABG Base Excess ABG Potassium ABG Chloride ABG Glucose Oxyhemoglobin Sodium Potassium Chloride Carbon Dioxide BUN Glucose POC Glucose 151 H 191 H Calcium Magnesium Ferritin AST ALT Lactate Dehydrogenase C-Reactive Protein NT-Pro-B Natriuret Pep Total Protein Albumin Triglycerides Arterial Blood Glucose Arterial Blood Ionized Calcium Salicylates Acetaminophen 12/01/19 12/01/19 12/01/19 14:29 14:29 17:59 WBC Hgb Hct MCV Seg Neuts % (Manual) Lymphocytes % (Manual) Monocytes % (Manual) Nucleated RBC % Seg Neutrophils # Man Lymphocytes # (Manual) Monocytes # (Manual) D-Dimer ABG pH POC ABG pCO2 POC ABG pO2 ABG pO2 ABG HCO3 ABG O2 Saturation ABG Base Excess ABG Potassium ABG Chloride ABG Glucose Oxyhemoglobin Sodium Potassium Chloride Carbon Dioxide BUN Glucose POC Glucose 147 H Calcium Magnesium Ferritin 369.3 H AST ALT Lactate Dehydrogenase C-Reactive Protein 2.60 H NT-Pro-B Natriuret Pep Total Protein Albumin Triglycerides Arterial Blood Glucose Arterial Blood Ionized Calcium Salicylates Acetaminophen 12/01/19 12/02/19 12/02/19 23:58 04:08 05:03 WBC 12.2 H Hgb 15.8 H Hct 47.8 H MCV 95 H Seg Neuts % (Manual) Lymphocytes % (Manual) Monocytes % (Manual) Nucleated RBC % Seg Neutrophils # Man Lymphocytes # (Manual) Monocytes # (Manual) D-Dimer ABG pH 7.458 H POC ABG pCO2 POC ABG pO2 ABG pO2 66.2 L ABG HCO3 41.6 H ABG O2 Saturation 94.4 L ABG Base Excess 14.5 H ABG Potassium ABG Chloride ABG Glucose Oxyhemoglobin 92.4 L Sodium Potassium Chloride Carbon Dioxide BUN Glucose POC Glucose 126 H Calcium Magnesium Ferritin AST ALT Lactate Dehydrogenase C-Reactive Protein NT-Pro-B Natriuret Pep Total Protein Albumin Triglycerides Arterial Blood Glucose Arterial Blood Ionized Calcium Salicylates Acetaminophen 12/02/19 12/02/19 12/02/19 05:03 05:36 12:17 WBC Hgb Hct MCV Seg Neuts % (Manual) Lymphocytes % (Manual) Monocytes % (Manual) Nucleated RBC % Seg Neutrophils # Man Lymphocytes # (Manual) Monocytes # (Manual) D-Dimer ABG pH POC ABG pCO2 POC ABG pO2 ABG pO2 ABG HCO3 ABG O2 Saturation ABG Base Excess ABG Potassium ABG Chloride ABG Glucose Oxyhemoglobin Sodium 151 H Potassium Chloride Carbon Dioxide 40 H BUN 54 H Glucose 142 H POC Glucose 136 H 135 H Calcium Magnesium Ferritin AST ALT Lactate Dehydrogenase C-Reactive Protein NT-Pro-B Natriuret Pep Total Protein Albumin Triglycerides Arterial Blood Glucose Arterial Blood Ionized Calcium Salicylates Acetaminophen 12/02/19 12/02/19 12/03/19 17:59 23:37 05:27 WBC Hgb Hct MCV Seg Neuts % (Manual) Lymphocytes % (Manual) Monocytes % (Manual) Nucleated RBC % Seg Neutrophils # Man Lymphocytes # (Manual) Monocytes # (Manual) D-Dimer ABG pH POC ABG pCO2 POC ABG pO2 ABG pO2 ABG HCO3 ABG O2 Saturation ABG Base Excess ABG Potassium ABG Chloride ABG Glucose Oxyhemoglobin Sodium Potassium Chloride Carbon Dioxide BUN Glucose POC Glucose 139 H 120 H 110 H Calcium Magnesium Ferritin AST ALT Lactate Dehydrogenase C-Reactive Protein NT-Pro-B Natriuret Pep Total Protein Albumin Triglycerides Arterial Blood Glucose Arterial Blood Ionized Calcium Salicylates Acetaminophen 12/03/19 12/04/19 11:34 17:42 WBC Hgb Hct MCV Seg Neuts % (Manual) Lymphocytes % (Manual) Monocytes % (Manual) Nucleated RBC % Seg Neutrophils # Man Lymphocytes # (Manual) Monocytes # (Manual) D-Dimer ABG pH POC ABG pCO2 POC ABG pO2 ABG pO2 ABG HCO3 ABG O2 Saturation ABG Base Excess ABG Potassium ABG Chloride ABG Glucose Oxyhemoglobin Sodium Potassium Chloride Carbon Dioxide BUN Glucose POC Glucose 110 H 149 H Calcium Magnesium Ferritin AST ALT Lactate Dehydrogenase C-Reactive Protein NT-Pro-B Natriuret Pep Total Protein Albumin Triglycerides Arterial Blood Glucose Arterial Blood Ionized Calcium Salicylates Acetaminophen Chest x-ray: report reviewed, image reviewed
[2019-12-06] MEDS: FUROSEMIDE 40 MG/4 ML INJ IV SCH ×2 (05:10→18:20)
[2019-12-06] MEDS: methylPREDNISolone Sod Succinate 125 MG/2 ML INJ IV SCH ×3 (05:28→23:12)
[2019-12-06 05:31] LABS: Hematocrit 53.8 % (35.5-45.6); Hemoglobin 17.8 gm/dl (11.8-15.2); Mean Corpuscular HGB Conc 33 % (32-34); Mean Corpuscular Volume 95 fl (84-94); Platelet Count 148 K/mm3 (140-440); Red Blood Count 5.68 M/mm3 (3.65-5.03); Red Cell Distribution Width 14.1 % (13.2-15.2)
[2019-12-06 05:42] LABS: Basophils % (Auto) 0.1 % (0.0-1.8); Lymphocytes # (Auto) 0.9 K/mm3 (1.2-5.4); Lymphocytes % (Auto) 4.7 % (13.4-35.0); Monocytes # (Auto) 0.8 K/mm3 (0.0-0.8); Monocytes % (Auto) 4.1 % (0.0-7.3)
[2019-12-06 05:45] LABS: BUN/Creatinine Ratio 74; Blood Urea Nitrogen 74 mg/dL (9-20); Calcium 8.9 mg/dL (8.4-10.2); Hemolysis Index 18
[2019-12-06] MEDS: IPRATROPIUM/ALBUTEROL SULFATE 3 ML AMPUL.NEB IH SCH ×4 (07:10→20:55)
--- NOTE | 2019-12-06 09:29 | Progress Note ---
Assessment and Plan 49 y/o male with acute respiratory failure, hypercapnic respiratory failure, and likely CHF, preserved EF 1. Will order nocturnal NIV. Needs to be worn nightly. May help with oxygen requirement. 2. Will ask CM to check on his NIV for home, per sister, patient has one or is at least suppose to be on one. If not, will attempt to get patient a trilogy at discharge. 3. Continue BID lasix therapy. 4. Continue solumedrol at 40q8 through today, will change to 20q8 starting tomorrow. 5. Agree with switching to oral therapy for PE once ready. Will need hypercoag work up as an outpatient and heme follow up. Subjective Date of service: 12/06/19 Principal diagnosis: Acute respiratory failure with hypoxia Interval history: Patient remains on HFNC. He is however, not getting PPV nightly and he should be. Objective Vital Signs - 12hr 12/05/19 12/06/19 12/06/19 23:24 03:00 03:50 Temperature 99.3 F 99.5 F Pulse Rate 82 80 Pulse Rate [ Anterior Bilateral Throughout] Respiratory 20 20 Rate Respiratory Rate [Anterior Bilateral Throughout] Blood Pressure 99/66 94/64 O2 Sat by Pulse 93 95 97 Oximetry 12/06/19 12/06/19 12/06/19 07:12 07:13 07:52 Temperature 98.0 F Pulse Rate 78 Pulse Rate [ 89 Anterior Bilateral Throughout] Respiratory 20 Rate Respiratory 20 Rate [Anterior Bilateral Throughout] Blood Pressure 110/73 O2 Sat by Pulse 94 96 Oximetry Constitutional: no acute distress, alert Eyes: non-icteric ENT: oropharynx moist Neck: supple Effort: normal Ascultation: Bilateral: clear, diminished breath sounds, wheezes (bilateral wheezes) Percussion: Bilateral: not dull Cardiovascular: regular rate and rhythm (no mrg) Gastrointestinal: normoactive bowel sounds, soft, non-tender, non-distended Integumentary: normal Extremities: no cyanosis, no edema, pink and warm Neurologic: normal mental status, non-focal exam, pupils equal and round, CN II- XII normal Psychiatric: mood appropriate, affect normal CBC and BMP: 12/06/19 04:28 12/06/19 04:28 ABG, PT/INR, D-dimer: ABG ABG pH 7.458 pH Units (7.350-7.450) H 12/02/19 04:08 POC ABG pCO2 61.7 mmHg (32.0-48.0) H 11/30/19 04:40 ABG pCO2 60.1 mm Hg 12/02/19 04:08 POC ABG pO2 86.6 mmHg (83-108) 11/30/19 04:40 ABG pO2 66.2 mm Hg (80.0-90.0) L 12/02/19 04:08 POC ABG HCO3 39.2 11/30/19 04:40 ABG O2 Saturation 94.4 % (95.0-99.0) L 12/02/19 04:08 PT/INR, D-dimer PT 14.6 Sec. (12.2-14.9) 11/27/19 12:08 INR 1.13 (0.87-1.13) 11/27/19 12:08 D-Dimer 2939.43 ng/mlDDU (0-234) H 12/01/19 14:29 Abnormal lab findings: Abnormal Labs 11/27/19 11/27/19 11/27/19 11:55 12:08 12:08 WBC RBC Hgb Hct 45.8 H MCV 97 H Lymph % (Auto) Lymph # (Auto) Seg Neuts % (Manual) 76.0 H Lymphocytes % (Manual) 3.0 L Monocytes % (Manual) 17.0 H Nucleated RBC % 1.0 H Seg Neutrophils # Seg Neutrophils # Man 7.9 H Lymphocytes # (Manual) 0.3 L Monocytes # (Manual) 1.8 H D-Dimer ABG pH 7.250 L POC ABG pCO2 POC ABG pO2 ABG pO2 61.4 L ABG HCO3 36.5 H ABG O2 Saturation 86.3 L ABG Base Excess 5.9 H ABG Potassium ABG Chloride ABG Glucose Oxyhemoglobin 81.6 L Sodium Potassium 5.5 H Chloride 93.8 L Carbon Dioxide 38 H BUN 75 H Glucose 109 H POC Glucose Calcium 8.3 L Magnesium 3.00 H Ferritin AST 505 H ALT 375 H Lactate Dehydrogenase 408 H C-Reactive Protein 19.50 H NT-Pro-B Natriuret Pep Total Protein Albumin 3.5 L Triglycerides Arterial Blood Glucose Arterial Blood Ionized Calcium Salicylates Acetaminophen 11/27/19 11/27/19 11/27/19 12:08 12:08 12:08 WBC RBC Hgb Hct MCV Lymph % (Auto) Lymph # (Auto) Seg Neuts % (Manual) Lymphocytes % (Manual) Monocytes % (Manual) Nucleated RBC % Seg Neutrophils # Seg Neutrophils # Man Lymphocytes # (Manual) Monocytes # (Manual) D-Dimer ABG pH POC ABG pCO2 POC ABG pO2 ABG pO2 ABG HCO3 ABG O2 Saturation ABG Base Excess ABG Potassium ABG Chloride ABG Glucose Oxyhemoglobin Sodium Potassium Chloride Carbon Dioxide BUN Glucose POC Glucose Calcium Magnesium Ferritin 818.7 H AST ALT Lactate Dehydrogenase C-Reactive Protein NT-Pro-B Natriuret Pep Total Protein Albumin Triglycerides Arterial Blood Glucose Arterial Blood Ionized Calcium Salicylates < 0.3 L Acetaminophen 5.0 L 11/27/19 11/27/19 11/28/19 12:22 22:40 01:45 WBC RBC Hgb Hct MCV Lymph % (Auto) Lymph # (Auto) Seg Neuts % (Manual) Lymphocytes % (Manual) Monocytes % (Manual) Nucleated RBC % Seg Neutrophils # Seg Neutrophils # Man Lymphocytes # (Manual) Monocytes # (Manual) D-Dimer ABG pH 7.086 L 7.257 L POC ABG pCO2 133.5 H 81.8 H POC ABG pO2 78.4 L 172.6 H ABG pO2 ABG HCO3 ABG O2 Saturation ABG Base Excess ABG Potassium ABG Chloride ABG Glucose Oxyhemoglobin Sodium Potassium Chloride Carbon Dioxide BUN Glucose POC Glucose Calcium Magnesium Ferritin AST ALT Lactate Dehydrogenase C-Reactive Protein NT-Pro-B Natriuret Pep 35861 H Total Protein Albumin Triglycerides Arterial Blood Glucose Arterial Blood Ionized Calcium Salicylates Acetaminophen 11/28/19 11/28/19 11/28/19 05:25 12:36 12:36 WBC 11.3 H RBC Hgb Hct MCV 97 H Lymph % (Auto) Lymph # (Auto) Seg Neuts % (Manual) Lymphocytes % (Manual) Monocytes % (Manual) Nucleated RBC % Seg Neutrophils # Seg Neutrophils # Man Lymphocytes # (Manual) Monocytes # (Manual) D-Dimer ABG pH POC ABG pCO2 64.2 H POC ABG pO2 68.1 L ABG pO2 ABG HCO3 ABG O2 Saturation ABG Base Excess ABG Potassium ABG Chloride ABG Glucose Oxyhemoglobin Sodium Potassium 5.4 H Chloride 95.8 L Carbon Dioxide 38 H BUN 46 H Glucose 114 H POC Glucose Calcium 8.0 L Magnesium Ferritin AST 169 H ALT 284 H Lactate Dehydrogenase C-Reactive Protein NT-Pro-B Natriuret Pep Total Protein 5.9 L Albumin 2.9 L Triglycerides Arterial Blood Glucose Arterial Blood Ionized Calcium Salicylates Acetaminophen 11/28/19 11/29/19 11/29/19 15:41 02:42 12:02 WBC RBC Hgb Hct MCV Lymph % (Auto) Lymph # (Auto) Seg Neuts % (Manual) Lymphocytes % (Manual) Monocytes % (Manual) Nucleated RBC % Seg Neutrophils # Seg Neutrophils # Man Lymphocytes # (Manual) Monocytes # (Manual) D-Dimer ABG pH POC ABG pCO2 57.2 H POC ABG pO2 80.2 L ABG pO2 ABG HCO3 ABG O2 Saturation ABG Base Excess ABG Potassium 4.6 H ABG Chloride 97.0 L ABG Glucose 131 H Oxyhemoglobin Sodium Potassium Chloride Carbon Dioxide BUN Glucose POC Glucose 122 H 123 H Calcium Magnesium Ferritin AST ALT Lactate Dehydrogenase C-Reactive Protein NT-Pro-B Natriuret Pep Total Protein Albumin Triglycerides Arterial Blood Glucose 131 H Arterial Blood Ionized Calcium 4.1 L Salicylates Acetaminophen 11/29/19 11/29/19 11/30/19 14:48 17:23 04:30 WBC RBC Hgb Hct MCV Lymph % (Auto) Lymph # (Auto) Seg Neuts % (Manual) Lymphocytes % (Manual) Monocytes % (Manual) Nucleated RBC % Seg Neutrophils # Seg Neutrophils # Man Lymphocytes # (Manual) Monocytes # (Manual) D-Dimer ABG pH POC ABG pCO2 POC ABG pO2 ABG pO2 ABG HCO3 ABG O2 Saturation ABG Base Excess ABG Potassium ABG Chloride ABG Glucose Oxyhemoglobin Sodium 148 H Potassium Chloride 97.4 L Carbon Dioxide 38 H BUN 51 H Glucose 147 H POC Glucose 127 H Calcium 7.9 L Magnesium Ferritin AST ALT Lactate Dehydrogenase C-Reactive Protein NT-Pro-B Natriuret Pep Total Protein Albumin Triglycerides 216 H Arterial Blood Glucose Arterial Blood Ionized Calcium Salicylates Acetaminophen 11/30/19 11/30/19 11/30/19 04:31 04:40 12:33 WBC RBC Hgb Hct MCV Lymph % (Auto) Lymph # (Auto) Seg Neuts % (Manual) Lymphocytes % (Manual) Monocytes % (Manual) Nucleated RBC % Seg Neutrophils # Seg Neutrophils # Man Lymphocytes # (Manual) Monocytes # (Manual) D-Dimer ABG pH POC ABG pCO2 61.7 H POC ABG pO2 ABG pO2 ABG HCO3 ABG O2 Saturation ABG Base Excess ABG Potassium 4.6 H ABG Chloride 97.0 L ABG Glucose 167 H Oxyhemoglobin Sodium Potassium Chloride 96.6 L Carbon Dioxide 37 H BUN 52 H Glucose 173 H POC Glucose 164 H Calcium 8.2 L Magnesium Ferritin AST 86 H ALT 219 H Lactate Dehydrogenase C-Reactive Protein NT-Pro-B Natriuret Pep Total Protein 6.1 L Albumin 3.0 L Triglycerides Arterial Blood Glucose 167 H Arterial Blood Ionized Calcium 4.4 L Salicylates Acetaminophen 11/30/19 12/01/19 12/01/19 18:38 00:26 04:16 WBC RBC Hgb Hct MCV Lymph % (Auto) Lymph # (Auto) Seg Neuts % (Manual) Lymphocytes % (Manual) Monocytes % (Manual) Nucleated RBC % Seg Neutrophils # Seg Neutrophils # Man Lymphocytes # (Manual) Monocytes # (Manual) D-Dimer ABG pH POC ABG pCO2 POC ABG pO2 ABG pO2 186.5 H ABG HCO3 42.8 H ABG O2 Saturation 99.1 H ABG Base Excess 14.4 H ABG Potassium ABG Chloride ABG Glucose Oxyhemoglobin Sodium Potassium Chloride Carbon Dioxide BUN Glucose POC Glucose 142 H 158 H Calcium Magnesium Ferritin AST ALT Lactate Dehydrogenase C-Reactive Protein NT-Pro-B Natriuret Pep Total Protein Albumin Triglycerides Arterial Blood Glucose Arterial Blood Ionized Calcium Salicylates Acetaminophen 12/01/19 12/01/19 12/01/19 05:35 12:17 14:29 WBC RBC Hgb Hct MCV Lymph % (Auto) Lymph # (Auto) Seg Neuts % (Manual) Lymphocytes % (Manual) Monocytes % (Manual) Nucleated RBC % Seg Neutrophils # Seg Neutrophils # Man Lymphocytes # (Manual) Monocytes # (Manual) D-Dimer 2939.43 H ABG pH POC ABG pCO2 POC ABG pO2 ABG pO2 ABG HCO3 ABG O2 Saturation ABG Base Excess ABG Potassium ABG Chloride ABG Glucose Oxyhemoglobin Sodium Potassium Chloride Carbon Dioxide BUN Glucose POC Glucose 151 H 191 H Calcium Magnesium Ferritin AST ALT Lactate Dehydrogenase C-Reactive Protein NT-Pro-B Natriuret Pep Total Protein Albumin Triglycerides Arterial Blood Glucose Arterial Blood Ionized Calcium Salicylates Acetaminophen 12/01/19 12/01/19 12/01/19 14:29 14:29 17:59 WBC RBC Hgb Hct MCV Lymph % (Auto) Lymph # (Auto) Seg Neuts % (Manual) Lymphocytes % (Manual) Monocytes % (Manual) Nucleated RBC % Seg Neutrophils # Seg Neutrophils # Man Lymphocytes # (Manual) Monocytes # (Manual) D-Dimer ABG pH POC ABG pCO2 POC ABG pO2 ABG pO2 ABG HCO3 ABG O2 Saturation ABG Base Excess ABG Potassium ABG Chloride ABG Glucose Oxyhemoglobin Sodium Potassium Chloride Carbon Dioxide BUN Glucose POC Glucose 147 H Calcium Magnesium Ferritin 369.3 H AST ALT Lactate Dehydrogenase C-Reactive Protein 2.60 H NT-Pro-B Natriuret Pep Total Protein Albumin Triglycerides Arterial Blood Glucose Arterial Blood Ionized Calcium Salicylates Acetaminophen 12/01/19 12/02/19 12/02/19 23:58 04:08 05:03 WBC 12.2 H RBC Hgb 15.8 H Hct 47.8 H MCV 95 H Lymph % (Auto) Lymph # (Auto) Seg Neuts % (Manual) Lymphocytes % (Manual) Monocytes % (Manual) Nucleated RBC % Seg Neutrophils # Seg Neutrophils # Man Lymphocytes # (Manual) Monocytes # (Manual) D-Dimer ABG pH 7.458 H POC ABG pCO2 POC ABG pO2 ABG pO2 66.2 L ABG HCO3 41.6 H ABG O2 Saturation 94.4 L ABG Base Excess 14.5 H ABG Potassium ABG Chloride ABG Glucose Oxyhemoglobin 92.4 L Sodium Potassium Chloride Carbon Dioxide BUN Glucose POC Glucose 126 H Calcium Magnesium Ferritin AST ALT Lactate Dehydrogenase C-Reactive Protein NT-Pro-B Natriuret Pep Total Protein Albumin Triglycerides Arterial Blood Glucose Arterial Blood Ionized Calcium Salicylates Acetaminophen 12/02/19 12/02/19 12/02/19 05:03 05:36 12:17 WBC RBC Hgb Hct MCV Lymph % (Auto) Lymph # (Auto) Seg Neuts % (Manual) Lymphocytes % (Manual) Monocytes % (Manual) Nucleated RBC % Seg Neutrophils # Seg Neutrophils # Man Lymphocytes # (Manual) Monocytes # (Manual) D-Dimer ABG pH POC ABG pCO2 POC ABG pO2 ABG pO2 ABG HCO3 ABG O2 Saturation ABG Base Excess ABG Potassium ABG Chloride ABG Glucose Oxyhemoglobin Sodium 151 H Potassium Chloride Carbon Dioxide 40 H BUN 54 H Glucose 142 H POC Glucose 136 H 135 H Calcium Magnesium Ferritin AST ALT Lactate Dehydrogenase C-Reactive Protein NT-Pro-B Natriuret Pep Total Protein Albumin Triglycerides Arterial Blood Glucose Arterial Blood Ionized Calcium Salicylates Acetaminophen 12/02/19 12/02/19 12/03/19 17:59 23:37 05:27 WBC RBC Hgb Hct MCV Lymph % (Auto) Lymph # (Auto) Seg Neuts % (Manual) Lymphocytes % (Manual) Monocytes % (Manual) Nucleated RBC % Seg Neutrophils # Seg Neutrophils # Man Lymphocytes # (Manual) Monocytes # (Manual) D-Dimer ABG pH POC ABG pCO2 POC ABG pO2 ABG pO2 ABG HCO3 ABG O2 Saturation ABG Base Excess ABG Potassium ABG Chloride ABG Glucose Oxyhemoglobin Sodium Potassium Chloride Carbon Dioxide BUN Glucose POC Glucose 139 H 120 H 110 H Calcium Magnesium Ferritin AST ALT Lactate Dehydrogenase C-Reactive Protein NT-Pro-B Natriuret Pep Total Protein Albumin Triglycerides Arterial Blood Glucose Arterial Blood Ionized Calcium Salicylates Acetaminophen 12/03/19 12/04/19 12/06/19 11:34 17:42 04:28 WBC 20.0 H RBC 5.68 H Hgb 17.8 H Hct 53.8 H MCV 95 H Lymph % (Auto) 4.7 L Lymph # (Auto) 0.9 L Seg Neuts % (Manual) Lymphocytes % (Manual) Monocytes % (Manual) Nucleated RBC % Seg Neutrophils # 18.2 H Seg Neutrophils # Man Lymphocytes # (Manual) Monocytes # (Manual) D-Dimer ABG pH POC ABG pCO2 POC ABG pO2 ABG pO2 ABG HCO3 ABG O2 Saturation ABG Base Excess ABG Potassium ABG Chloride ABG Glucose Oxyhemoglobin Sodium Potassium Chloride Carbon Dioxide BUN Glucose POC Glucose 110 H 149 H Calcium Magnesium Ferritin AST ALT Lactate Dehydrogenase C-Reactive Protein NT-Pro-B Natriuret Pep Total Protein Albumin Triglycerides Arterial Blood Glucose Arterial Blood Ionized Calcium Salicylates Acetaminophen 12/06/19 04:28 WBC RBC Hgb Hct MCV Lymph % (Auto) Lymph # (Auto) Seg Neuts % (Manual) Lymphocytes % (Manual) Monocytes % (Manual) Nucleated RBC % Seg Neutrophils # Seg Neutrophils # Man Lymphocytes # (Manual) Monocytes # (Manual) D-Dimer ABG pH POC ABG pCO2 POC ABG pO2 ABG pO2 ABG HCO3 ABG O2 Saturation ABG Base Excess ABG Potassium ABG Chloride ABG Glucose Oxyhemoglobin Sodium Potassium Chloride 94.4 L Carbon Dioxide 34 H BUN 74 H Glucose 133 H POC Glucose Calcium Magnesium Ferritin AST ALT Lactate Dehydrogenase C-Reactive Protein NT-Pro-B Natriuret Pep Total Protein Albumin Triglycerides Arterial Blood Glucose Arterial Blood Ionized Calcium Salicylates Acetaminophen
[2019-12-06] MEDS: LISINOPRIL 5 MG TAB PO SCH (10:20)
[2019-12-06] MEDS: VALPROIC ACID 250 MG/5 ML ORAL LIQD FEEDTUBE SCH ×2 (10:20→23:12)
[2019-12-06] MEDS: FAMOTIDINE 20 MG TAB PO SCH ×2 (10:21→23:12)
[2019-12-06] MEDS: carvediloL 3.125 MG TAB PO SCH ×2 (10:21→23:11)
--- NOTE | 2019-12-06 10:28 | Progress Note ---
Assessment and Plan Acute PE Acute respiratory failure extubated 12/03/2019 negative for COVID-19 Echo this presentation reports mild dilated RV, normal LVEF 55-60% Hx of COPD Hx Psychiatric disorder Transition from lovenox to oral anticoagulation when feasible. Subjective Date of service: 12/06/19 Principal diagnosis: Acute respiratory failure with hypoxia Interval history: Patient is on high flow oxygen. No distress noted. Objective Vital Signs Temp Pulse Pulse Resp Resp BP Pulse Ox 12/06/19 10:21 78 110/73 12/06/19 10:20 78 110/73 12/06/19 07:52 98.0 F 78 20 110/73 96 12/06/19 07:13 94 12/06/19 07:12 89 20 12/06/19 03:50 99.5 F 80 20 94/64 97 12/06/19 03:00 95 12/05/19 23:24 99.3 F 82 20 99/66 93 12/05/19 20:43 18 95 12/05/19 20:28 85 12/05/19 20:24 91 H 18 12/05/19 20:00 95 H 12/05/19 19:45 97.5 F L 95 H 18 84/57 92 12/05/19 15:51 98.1 F 83 18 105/73 93 12/05/19 15:05 88 20 94 12/05/19 13:30 94 12/05/19 12:23 98.1 F 92 H 18 108/75 93 12/05/19 11:57 82 18 95 - Physical Examination General: No Apparent Distress HEENT: Positive: PERRL Neck: Positive: neck supple Cardiac: Positive: Reg Rate and Rhythm Neuro: Positive: Grossly Intact Extremities: Absent: edema - Labs and Meds CBC 12/06/19 Range/Units 04:28 WBC 20.0 H (4.5-11.0) K/mm3 RBC 5.68 H (3.65-5.03) M/mm3 Hgb 17.8 H (11.8-15.2) gm/dl Hct 53.8 H (35.5-45.6) % Plt Count 148 (140-440) K/mm3 Lymph # (Auto) 0.9 L (1.2-5.4) K/mm3 [place] # (Auto) 0.8 (0.0-0.8) K/mm3 Eos # (Auto) 0.0 (0.0-0.4) K/mm3 Baso # (Auto) 0.0 (0.0-0.1) K/mm3 Comprehensive Metabolic Panel 12/06/19 Range/Units 04:28 Sodium 143 D (137-145) mmol/L Potassium 4.5 (3.6-5.0) mmol/L Chloride 94.4 L (98-107) mmol/L Carbon Dioxide 34 H (22-30) mmol/L BUN 74 H (9-20) mg/dL Creatinine 1.0 (0.8-1.3) mg/dL Glucose 133 H (75-100) mg/dL Calcium 8.9 (8.4-10.2) mg/dL
[2019-12-06] MEDS: ENOXAPARIN 150 MG/1 ML INJ SUB-Q SCH ×2 (10:40→23:12)
[2019-12-06] MEDS: BUDESONIDE 0.5 MG/2 ML NEBU IH SCH ×2 (10:50→20:55)
--- NOTE | 2019-12-06 16:03 | Progress Note ---
Assessment and Plan Cultures: Blood culture pending SARS CoV2 PCR negative Assessment: 49 years old female with morbid obesity, psychiatric disorder, admitted on 11/27/2019 due to a week history of worsening shortness of breath, cough, generalized weakness, malaise: #Severe sepsis: Present on admission with tachycardia, severe hypoxia likely due to bilateral pneumonia. #Suspect Critical COVID pneumonia: SARS-CoV-2 PCR negative initially. Inflammatory markers, ferritin, CRP and LDH daily elevated. D-dimer pending. Noted elevated BNP #Acute hypoxemic respiratory failure: Initial O2 sat 69%, patient was on BiPAP, now intubated. discussed with Dr. Díaz, most likely secondary to non- compliance with CHF medications and accumulation of fluid. Woul get re-test to ensure infection did not tip him into exacerbations. #Elevated LFTs: Elevated 10 times baseline. From COVID #Morbid obesity: Associated with poor cell counts. #Left lung pulmonary embolism: Management per primary and cardiology. Recommendations: -Obtain SARS-CoV-2 PCR retest - was cancelled, pulm will obtain -Dexamethasone 6 mg IV/PO daily for 10 days -Monitor inflammatory markers - ferritin, Ddimer, CRP, LDH. D-dimer is pending -Anticoagulation for pulmonary was appropriate. -Leukocytosis may be secondary to high-dose steroids. Would obtain repeat procalcitonin to ensure it is not elevated. Will follow Rocky Cosby MD [facility] ([facility] M: [phone] O: [phone] F: [phone] Subjective Date of service: 12/06/19 Principal diagnosis: Acute respiratory failure with hypoxia Interval history: Afebrile, white count elevated at 20. Which is a large increase. Sputum culture with Streptococcus pneumonia from 11/27/2019. Currently on high-dose steroids. Objective - Exam Narrative Exam: Physical exam deferred due to PPE conservation strategy. Please refer to primary team's note. - Constitutional Vitals: Vital Signs Temp Pulse Resp BP Pulse Ox 98.0 F 85 20 106/60 94 12/06/19 11:38 12/06/19 11:36 12/06/19 11:38 12/06/19 11:38 12/06/19 12:42 Temperature -Last 24 Hours Temperature 98.0 F Temperature 98.0 F Temperature 99.5 F Temperature 99.3 F Temperature 97.5 F - Labs CBC & Chem 7: 12/06/19 04:28 12/06/19 04:28 Labs: Abnormal lab results 12/06/19 12/06/19 Range/Units 04:28 04:28 WBC 20.0 H (4.5-11.0) K/mm3 RBC 5.68 H (3.65-5.03) M/mm3 Hgb 17.8 H (11.8-15.2) gm/dl Hct 53.8 H (35.5-45.6) % MCV 95 H (84-94) fl Lymph % (Auto) 4.7 L (13.4-35.0) % Lymph # (Auto) 0.9 L (1.2-5.4) K/mm3 Seg Neutrophils # 18.2 H (1.8-7.7) K/mm3 Chloride 94.4 L (98-107) mmol/L Carbon Dioxide 34 H (22-30) mmol/L BUN 74 H (9-20) mg/dL Glucose 133 H (75-100) mg/dL
--- NOTE | 2019-12-06 16:24 | Progress Note ---
Assessment and Plan Critical care statement The high probability OF a clinically significant sudden or life-threatening deterioration of the cardiorespiratory system and endocrine system required my full and direct attention, intervention and postoperative management. The aggregate critical care time was 40 minutes. The time is in addition to time spent performing reported procedures but includes the followin: Data review and interpretation 2: Patient assessment and monitoring of vital signs 3: Documentation 4:: Medication orders and management - Patient Problems (1) Acute hypoxemic respiratory failure Current Visit: Yes Status: Acute Plan to address problem: Patient is extubated Coronavirus negative Severe COPD and CHF Per ID coronavirus test to be repeated Initial coronavirus test on 11/27 was negative (2) Hypercapnic respiratory failure Current Visit: Yes Status: Acute Qualifiers: Chronicity: acute on chronic Qualified Code(s): J96.22 - Acute and chronic respiratory failure with hypercapnia Plan to address problem: Duo nebs [id number] and every 3 as needed IV [id number] mg every 8 Telecommunications Operator consult appreciated (3) Suspected 2019 novel coronavirus infection Current Visit: Yes Status: Acute Plan to address problem: Coronavirus PCR negative To repeat coronavirus PCR on 12/07/2019 (4) Hyperkalemia Current Visit: Yes Status: Acute Plan to address problem: Treated (5) Hypertension Current Visit: Yes Status: Chronic Qualifiers: Hypertension type: essential hypertension Qualified Code(s): I10 - Essential (primary) hypertension Plan to address problem: Continue antihypertensives (6) Acute exacerbation of CHF (congestive heart failure) Current Visit: Yes Status: Acute Qualifiers: Heart failure type: combined systolic and diastolic Qualified Code(s): I50.43 - Acute on chronic combined systolic (congestive) and diastolic (congestive) heart failure Plan to address problem: Echocardiogram shows ejection fraction of 55 to 60% Lasix decreased to 40 mg once a day BUN is high From prerenal volume depletion (7) Elevated LFTs Current Visit: Yes Status: Acute Plan to address problem: Passive congestion of the liver secondary to CHF LFTs to be repeated (8) Coronary artery disease Current Visit: Yes Status: Chronic Qualifiers: Coronary Disease-Associated Artery/Lesion type: [place] artery [place] vs. transplanted heart: [place] heart Plan to address problem: Continue aspirin and Plavix (9) DVT prophylaxis Current Visit: Yes Status: Acute Plan to address problem: On Lovenox and GI prophylaxis Subjective Date of service: 12/06/19 Principal diagnosis: Acute respiratory failure with hypoxia, COPD/CHF exacerbation Interval history: Patient was extubated on 12/03/2019 patient transferred to floor on 12/04/2019 patient continues to be in mild respiratory distress patient able to walk to the restroom slightly agitated has a new sacral area redness but no open wound see wound care notes. Objective - Exam Narrative Exam: Patient was intubated. - Constitutional Vitals: Vital Signs - 12hr 12/06/19 12/06/19 12/06/19 07:12 07:13 07:52 Temperature 98.0 F Pulse Rate 78 Pulse Rate [ 89 Anterior Bilateral Throughout] Pulse Rate [ Apical] Pulse Rate [ From Monitor] Respiratory 20 Rate Respiratory 20 Rate [Anterior Bilateral Throughout] Blood Pressure 110/73 O2 Sat by Pulse 94 96 Oximetry 12/06/19 12/06/19 12/06/19 08:00 10:00 10:20 Temperature Pulse Rate 78 78 Pulse Rate [ Anterior Bilateral Throughout] Pulse Rate [ 78 Apical] Pulse Rate [ 80 From Monitor] Respiratory 22 Rate Respiratory Rate [Anterior Bilateral Throughout] Blood Pressure 110/73 O2 Sat by Pulse 96 Oximetry 12/06/19 12/06/19 12/06/19 10:21 11:36 11:38 Temperature 98.0 F Pulse Rate 78 85 Pulse Rate [ Anterior Bilateral Throughout] Pulse Rate [ Apical] Pulse Rate [ From Monitor] Respiratory 20 Rate Respiratory Rate [Anterior Bilateral Throughout] Blood Pressure 110/73 79/44 106/60 O2 Sat by Pulse 89 Oximetry 12/06/19 12:42 Temperature Pulse Rate Pulse Rate [ Anterior Bilateral Throughout] Pulse Rate [ Apical] Pulse Rate [ From Monitor] Respiratory Rate Respiratory Rate [Anterior Bilateral Throughout] Blood Pressure O2 Sat by Pulse 94 Oximetry General appearance: Present: no acute distress, well-nourished - EENT Eyes: PERRL, EOM intact ENT: hearing intact, clear oral mucosa Ears: bilateral: normal - Neck Neck: supple, normal ROM - Respiratory Respiratory effort: normal Respiratory: bilateral: CTA, wheezing - Breasts Breasts: normal - Cardiovascular Heart rate: 78 Rhythm: regular Heart Sounds: Present: S1 & S2. Absent: gallop, rub Extremities: pulses intact, No edema, normal color, Full ROM Extremity abnormal: other (Sacral area redness present) - Gastrointestinal General gastrointestinal: Present: soft, non-tender, non-distended, normal bowel sounds - Genitourinary Male genitourinary: normal - Integumentary Integumentary: clear, warm, dry - Musculoskeletal Musculoskeletal: 1, strength equal bilaterally - Neurologic Neurologic: moves all extremities - Psychiatric Psychiatric: memory intact, appropriate mood/affect, intact judgment & insight - Labs CBC & Chem 7: 12/06/19 04:28 12/06/19 04:28 Labs: Abnormal lab results 12/06/19 12/06/19 Range/Units 04:28 04:28 WBC 20.0 H (4.5-11.0) K/mm3 RBC 5.68 H (3.65-5.03) M/mm3 Hgb 17.8 H (11.8-15.2) gm/dl Hct 53.8 H (35.5-45.6) % MCV 95 H (84-94) fl Lymph % (Auto) 4.7 L (13.4-35.0) % Lymph # (Auto) 0.9 L (1.2-5.4) K/mm3 Seg Neutrophils # 18.2 H (1.8-7.7) K/mm3 Chloride 94.4 L (98-107) mmol/L Carbon Dioxide 34 H (22-30) mmol/L BUN 74 H (9-20) mg/dL Glucose 133 H (75-100) mg/dL HEART Score - HEART Score Age: 45-65 Risk factors: 1-2 risk factors Troponin: 1-3x normal limit - Critical Actions Critical Actions: 4-6 pts:12-16.6% risk of adverse cardiac event. Should be admitted
[2019-12-07] MEDS: methylPREDNISolone Sod Succinate 125 MG/2 ML INJ IV SCH (05:24)
[2019-12-07] MEDS: FUROSEMIDE 40 MG/4 ML INJ IV SCH ×2 (05:24→09:24)
[2019-12-07] MEDS: IPRATROPIUM/ALBUTEROL SULFATE 3 ML AMPUL.NEB IH SCH ×4 (08:31→20:39)
[2019-12-07] MEDS: BUDESONIDE 0.5 MG/2 ML NEBU IH SCH ×2 (08:31→20:39)
--- NOTE | 2019-12-07 08:53 | Progress Note ---
Assessment and Plan 49 y/o male with acute respiratory failure, hypercapnic respiratory failure, and likely CHF, preserved EF 1. Will place two communication orders to RT, one for weaning and one for NIV. Order of NIV is in, was placed yesterday morning. If patient is refusing, need to document. 2. Will ask CM to check on his NIV for home, per sister, patient has one or is at least suppose to be on one. If not, will attempt to get patient a trilogy at discharge. 3. Continue BID lasix therapy. 4. Will change to Prednisone 60 daily, hopeful patient will take it. 5. Agree with switching to oral therapy for PE once ready. Will need hypercoag work up as an outpatient and heme follow up. Subjective Date of service: 12/07/19 Principal diagnosis: Acute respiratory failure with hypoxia, COPD/CHF exacerbation Interval history: Patient refused IV steroids x2 yesterday and last night. Sats are good on HFNC but no documented attempts at weaning. WC is elevated but no fever. No documentation of patient being placed on bipap therapy either. Objective Vital Signs - 12hr 12/06/19 12/06/19 12/07/19 20:56 23:27 04:26 Temperature 97.6 F Pulse Rate 83 78 Pulse Rate [ 85 Anterior Bilateral Throughout] Respiratory 20 Rate Respiratory 20 Rate [Anterior Bilateral Throughout] Blood Pressure 96/61 O2 Sat by Pulse 94 88 Oximetry 12/07/19 07:17 Temperature 98.5 F Pulse Rate 76 Pulse Rate [ Anterior Bilateral Throughout] Respiratory 20 Rate Respiratory Rate [Anterior Bilateral Throughout] Blood Pressure 102/63 O2 Sat by Pulse 81 L Oximetry Constitutional: no acute distress, alert Eyes: non-icteric ENT: oropharynx moist Neck: supple Effort: normal Ascultation: Bilateral: clear, diminished breath sounds, wheezes (bilateral wheezes) Percussion: Bilateral: not dull Cardiovascular: regular rate and rhythm (no mrg) Gastrointestinal: normoactive bowel sounds, soft, non-tender, non-distended Integumentary: normal Extremities: no cyanosis, no edema, pink and warm Neurologic: normal mental status, non-focal exam, pupils equal and round, CN II- XII normal Psychiatric: mood appropriate, affect normal CBC and BMP: 12/06/19 04:28 12/06/19 04:28 ABG, PT/INR, D-dimer: ABG ABG pH 7.458 pH Units (7.350-7.450) H 12/02/19 04:08 POC ABG pCO2 61.7 mmHg (32.0-48.0) H 11/30/19 04:40 ABG pCO2 60.1 mm Hg 12/02/19 04:08 POC ABG pO2 86.6 mmHg (83-108) 11/30/19 04:40 ABG pO2 66.2 mm Hg (80.0-90.0) L 12/02/19 04:08 POC ABG HCO3 39.2 11/30/19 04:40 ABG O2 Saturation 94.4 % (95.0-99.0) L 12/02/19 04:08 PT/INR, D-dimer PT 14.6 Sec. (12.2-14.9) 11/27/19 12:08 INR 1.13 (0.87-1.13) 11/27/19 12:08 D-Dimer 2939.43 ng/mlDDU (0-234) H 12/01/19 14:29 Abnormal lab findings: Abnormal Labs 11/27/19 11/27/19 11/27/19 11:55 12:08 12:08 WBC RBC Hgb Hct 45.8 H MCV 97 H Lymph % (Auto) Lymph # (Auto) Seg Neuts % (Manual) 76.0 H Lymphocytes % (Manual) 3.0 L Monocytes % (Manual) 17.0 H Nucleated RBC % 1.0 H Seg Neutrophils # Seg Neutrophils # Man 7.9 H Lymphocytes # (Manual) 0.3 L Monocytes # (Manual) 1.8 H D-Dimer ABG pH 7.250 L POC ABG pCO2 POC ABG pO2 ABG pO2 61.4 L ABG HCO3 36.5 H ABG O2 Saturation 86.3 L ABG Base Excess 5.9 H ABG Potassium ABG Chloride ABG Glucose Oxyhemoglobin 81.6 L Sodium Potassium 5.5 H Chloride 93.8 L Carbon Dioxide 38 H BUN 75 H Glucose 109 H POC Glucose Calcium 8.3 L Magnesium 3.00 H Ferritin AST 505 H ALT 375 H Lactate Dehydrogenase 408 H C-Reactive Protein 19.50 H NT-Pro-B Natriuret Pep Total Protein Albumin 3.5 L Triglycerides Arterial Blood Glucose Arterial Blood Ionized Calcium Salicylates Acetaminophen 11/27/19 11/27/19 11/27/19 12:08 12:08 12:08 WBC RBC Hgb Hct MCV Lymph % (Auto) Lymph # (Auto) Seg Neuts % (Manual) Lymphocytes % (Manual) Monocytes % (Manual) Nucleated RBC % Seg Neutrophils # Seg Neutrophils # Man Lymphocytes # (Manual) Monocytes # (Manual) D-Dimer ABG pH POC ABG pCO2 POC ABG pO2 ABG pO2 ABG HCO3 ABG O2 Saturation ABG Base Excess ABG Potassium ABG Chloride ABG Glucose Oxyhemoglobin Sodium Potassium Chloride Carbon Dioxide BUN Glucose POC Glucose Calcium Magnesium Ferritin 818.7 H AST ALT Lactate Dehydrogenase C-Reactive Protein NT-Pro-B Natriuret Pep Total Protein Albumin Triglycerides Arterial Blood Glucose Arterial Blood Ionized Calcium Salicylates < 0.3 L Acetaminophen 5.0 L 11/27/19 11/27/19 11/28/19 12:22 22:40 01:45 WBC RBC Hgb Hct MCV Lymph % (Auto) Lymph # (Auto) Seg Neuts % (Manual) Lymphocytes % (Manual) Monocytes % (Manual) Nucleated RBC % Seg Neutrophils # Seg Neutrophils # Man Lymphocytes # (Manual) Monocytes # (Manual) D-Dimer ABG pH 7.086 L 7.257 L POC ABG pCO2 133.5 H 81.8 H POC ABG pO2 78.4 L 172.6 H ABG pO2 ABG HCO3 ABG O2 Saturation ABG Base Excess ABG Potassium ABG Chloride ABG Glucose Oxyhemoglobin Sodium Potassium Chloride Carbon Dioxide BUN Glucose POC Glucose Calcium Magnesium Ferritin AST ALT Lactate Dehydrogenase C-Reactive Protein NT-Pro-B Natriuret Pep 88225 H Total Protein Albumin Triglycerides Arterial Blood Glucose Arterial Blood Ionized Calcium Salicylates Acetaminophen 11/28/19 11/28/19 11/28/19 05:25 12:36 12:36 WBC 11.3 H RBC Hgb Hct MCV 97 H Lymph % (Auto) Lymph # (Auto) Seg Neuts % (Manual) Lymphocytes % (Manual) Monocytes % (Manual) Nucleated RBC % Seg Neutrophils # Seg Neutrophils # Man Lymphocytes # (Manual) Monocytes # (Manual) D-Dimer ABG pH POC ABG pCO2 64.2 H POC ABG pO2 68.1 L ABG pO2 ABG HCO3 ABG O2 Saturation ABG Base Excess ABG Potassium ABG Chloride ABG Glucose Oxyhemoglobin Sodium Potassium 5.4 H Chloride 95.8 L Carbon Dioxide 38 H BUN 46 H Glucose 114 H POC Glucose Calcium 8.0 L Magnesium Ferritin AST 169 H ALT 284 H Lactate Dehydrogenase C-Reactive Protein NT-Pro-B Natriuret Pep Total Protein 5.9 L Albumin 2.9 L Triglycerides Arterial Blood Glucose Arterial Blood Ionized Calcium Salicylates Acetaminophen 11/28/19 11/29/19 11/29/19 15:41 02:42 12:02 WBC RBC Hgb Hct MCV Lymph % (Auto) Lymph # (Auto) Seg Neuts % (Manual) Lymphocytes % (Manual) Monocytes % (Manual) Nucleated RBC % Seg Neutrophils # Seg Neutrophils # Man Lymphocytes # (Manual) Monocytes # (Manual) D-Dimer ABG pH POC ABG pCO2 57.2 H POC ABG pO2 80.2 L ABG pO2 ABG HCO3 ABG O2 Saturation ABG Base Excess ABG Potassium 4.6 H ABG Chloride 97.0 L ABG Glucose 131 H Oxyhemoglobin Sodium Potassium Chloride Carbon Dioxide BUN Glucose POC Glucose 122 H 123 H Calcium Magnesium Ferritin AST ALT Lactate Dehydrogenase C-Reactive Protein NT-Pro-B Natriuret Pep Total Protein Albumin Triglycerides Arterial Blood Glucose 131 H Arterial Blood Ionized Calcium 4.1 L Salicylates Acetaminophen 11/29/19 11/29/19 11/30/19 14:48 17:23 04:30 WBC RBC Hgb Hct MCV Lymph % (Auto) Lymph # (Auto) Seg Neuts % (Manual) Lymphocytes % (Manual) Monocytes % (Manual) Nucleated RBC % Seg Neutrophils # Seg Neutrophils # Man Lymphocytes # (Manual) Monocytes # (Manual) D-Dimer ABG pH POC ABG pCO2 POC ABG pO2 ABG pO2 ABG HCO3 ABG O2 Saturation ABG Base Excess ABG Potassium ABG Chloride ABG Glucose Oxyhemoglobin Sodium 148 H Potassium Chloride 97.4 L Carbon Dioxide 38 H BUN 51 H Glucose 147 H POC Glucose 127 H Calcium 7.9 L Magnesium Ferritin AST ALT Lactate Dehydrogenase C-Reactive Protein NT-Pro-B Natriuret Pep Total Protein Albumin Triglycerides 216 H Arterial Blood Glucose Arterial Blood Ionized Calcium Salicylates Acetaminophen 11/30/19 11/30/19 11/30/19 04:31 04:40 12:33 WBC RBC Hgb Hct MCV Lymph % (Auto) Lymph # (Auto) Seg Neuts % (Manual) Lymphocytes % (Manual) Monocytes % (Manual) Nucleated RBC % Seg Neutrophils # Seg Neutrophils # Man Lymphocytes # (Manual) Monocytes # (Manual) D-Dimer ABG pH POC ABG pCO2 61.7 H POC ABG pO2 ABG pO2 ABG HCO3 ABG O2 Saturation ABG Base Excess ABG Potassium 4.6 H ABG Chloride 97.0 L ABG Glucose 167 H Oxyhemoglobin Sodium Potassium Chloride 96.6 L Carbon Dioxide 37 H BUN 52 H Glucose 173 H POC Glucose 164 H Calcium 8.2 L Magnesium Ferritin AST 86 H ALT 219 H Lactate Dehydrogenase C-Reactive Protein NT-Pro-B Natriuret Pep Total Protein 6.1 L Albumin 3.0 L Triglycerides Arterial Blood Glucose 167 H Arterial Blood Ionized Calcium 4.4 L Salicylates Acetaminophen 11/30/19 12/01/19 12/01/19 18:38 00:26 04:16 WBC RBC Hgb Hct MCV Lymph % (Auto) Lymph # (Auto) Seg Neuts % (Manual) Lymphocytes % (Manual) Monocytes % (Manual) Nucleated RBC % Seg Neutrophils # Seg Neutrophils # Man Lymphocytes # (Manual) Monocytes # (Manual) D-Dimer ABG pH POC ABG pCO2 POC ABG pO2 ABG pO2 186.5 H ABG HCO3 42.8 H ABG O2 Saturation 99.1 H ABG Base Excess 14.4 H ABG Potassium ABG Chloride ABG Glucose Oxyhemoglobin Sodium Potassium Chloride Carbon Dioxide BUN Glucose POC Glucose 142 H 158 H Calcium Magnesium Ferritin AST ALT Lactate Dehydrogenase C-Reactive Protein NT-Pro-B Natriuret Pep Total Protein Albumin Triglycerides Arterial Blood Glucose Arterial Blood Ionized Calcium Salicylates Acetaminophen 12/01/19 12/01/19 12/01/19 05:35 12:17 14:29 WBC RBC Hgb Hct MCV Lymph % (Auto) Lymph # (Auto) Seg Neuts % (Manual) Lymphocytes % (Manual) Monocytes % (Manual) Nucleated RBC % Seg Neutrophils # Seg Neutrophils # Man Lymphocytes # (Manual) Monocytes # (Manual) D-Dimer 2939.43 H ABG pH POC ABG pCO2 POC ABG pO2 ABG pO2 ABG HCO3 ABG O2 Saturation ABG Base Excess ABG Potassium ABG Chloride ABG Glucose Oxyhemoglobin Sodium Potassium Chloride Carbon Dioxide BUN Glucose POC Glucose 151 H 191 H Calcium Magnesium Ferritin AST ALT Lactate Dehydrogenase C-Reactive Protein NT-Pro-B Natriuret Pep Total Protein Albumin Triglycerides Arterial Blood Glucose Arterial Blood Ionized Calcium Salicylates Acetaminophen 12/01/19 12/01/19 12/01/19 14:29 14:29 17:59 WBC RBC Hgb Hct MCV Lymph % (Auto) Lymph # (Auto) Seg Neuts % (Manual) Lymphocytes % (Manual) Monocytes % (Manual) Nucleated RBC % Seg Neutrophils # Seg Neutrophils # Man Lymphocytes # (Manual) Monocytes # (Manual) D-Dimer ABG pH POC ABG pCO2 POC ABG pO2 ABG pO2 ABG HCO3 ABG O2 Saturation ABG Base Excess ABG Potassium ABG Chloride ABG Glucose Oxyhemoglobin Sodium Potassium Chloride Carbon Dioxide BUN Glucose POC Glucose 147 H Calcium Magnesium Ferritin 369.3 H AST ALT Lactate Dehydrogenase C-Reactive Protein 2.60 H NT-Pro-B Natriuret Pep Total Protein Albumin Triglycerides Arterial Blood Glucose Arterial Blood Ionized Calcium Salicylates Acetaminophen 12/01/19 12/02/19 12/02/19 23:58 04:08 05:03 WBC 12.2 H RBC Hgb 15.8 H Hct 47.8 H MCV 95 H Lymph % (Auto) Lymph # (Auto) Seg Neuts % (Manual) Lymphocytes % (Manual) Monocytes % (Manual) Nucleated RBC % Seg Neutrophils # Seg Neutrophils # Man Lymphocytes # (Manual) Monocytes # (Manual) D-Dimer ABG pH 7.458 H POC ABG pCO2 POC ABG pO2 ABG pO2 66.2 L ABG HCO3 41.6 H ABG O2 Saturation 94.4 L ABG Base Excess 14.5 H ABG Potassium ABG Chloride ABG Glucose Oxyhemoglobin 92.4 L Sodium Potassium Chloride Carbon Dioxide BUN Glucose POC Glucose 126 H Calcium Magnesium Ferritin AST ALT Lactate Dehydrogenase C-Reactive Protein NT-Pro-B Natriuret Pep Total Protein Albumin Triglycerides Arterial Blood Glucose Arterial Blood Ionized Calcium Salicylates Acetaminophen 12/02/19 12/02/19 12/02/19 05:03 05:36 12:17 WBC RBC Hgb Hct MCV Lymph % (Auto) Lymph # (Auto) Seg Neuts % (Manual) Lymphocytes % (Manual) Monocytes % (Manual) Nucleated RBC % Seg Neutrophils # Seg Neutrophils # Man Lymphocytes # (Manual) Monocytes # (Manual) D-Dimer ABG pH POC ABG pCO2 POC ABG pO2 ABG pO2 ABG HCO3 ABG O2 Saturation ABG Base Excess ABG Potassium ABG Chloride ABG Glucose Oxyhemoglobin Sodium 151 H Potassium Chloride Carbon Dioxide 40 H BUN 54 H Glucose 142 H POC Glucose 136 H 135 H Calcium Magnesium Ferritin AST ALT Lactate Dehydrogenase C-Reactive Protein NT-Pro-B Natriuret Pep Total Protein Albumin Triglycerides Arterial Blood Glucose Arterial Blood Ionized Calcium Salicylates Acetaminophen 12/02/19 12/02/19 12/03/19 17:59 23:37 05:27 WBC RBC Hgb Hct MCV Lymph % (Auto) Lymph # (Auto) Seg Neuts % (Manual) Lymphocytes % (Manual) Monocytes % (Manual) Nucleated RBC % Seg Neutrophils # Seg Neutrophils # Man Lymphocytes # (Manual) Monocytes # (Manual) D-Dimer ABG pH POC ABG pCO2 POC ABG pO2 ABG pO2 ABG HCO3 ABG O2 Saturation ABG Base Excess ABG Potassium ABG Chloride ABG Glucose Oxyhemoglobin Sodium Potassium Chloride Carbon Dioxide BUN Glucose POC Glucose 139 H 120 H 110 H Calcium Magnesium Ferritin AST ALT Lactate Dehydrogenase C-Reactive Protein NT-Pro-B Natriuret Pep Total Protein Albumin Triglycerides Arterial Blood Glucose Arterial Blood Ionized Calcium Salicylates Acetaminophen 12/03/19 12/04/19 12/06/19 11:34 17:42 04:28 WBC 20.0 H RBC 5.68 H Hgb 17.8 H Hct 53.8 H MCV 95 H Lymph % (Auto) 4.7 L Lymph # (Auto) 0.9 L Seg Neuts % (Manual) Lymphocytes % (Manual) Monocytes % (Manual) Nucleated RBC % Seg Neutrophils # 18.2 H Seg Neutrophils # Man Lymphocytes # (Manual) Monocytes # (Manual) D-Dimer ABG pH POC ABG pCO2 POC ABG pO2 ABG pO2 ABG HCO3 ABG O2 Saturation ABG Base Excess ABG Potassium ABG Chloride ABG Glucose Oxyhemoglobin Sodium Potassium Chloride Carbon Dioxide BUN Glucose POC Glucose 110 H 149 H Calcium Magnesium Ferritin AST ALT Lactate Dehydrogenase C-Reactive Protein NT-Pro-B Natriuret Pep Total Protein Albumin Triglycerides Arterial Blood Glucose Arterial Blood Ionized Calcium Salicylates Acetaminophen 12/06/19 04:28 WBC RBC Hgb Hct MCV Lymph % (Auto) Lymph # (Auto) Seg Neuts % (Manual) Lymphocytes % (Manual) Monocytes % (Manual) Nucleated RBC % Seg Neutrophils # Seg Neutrophils # Man Lymphocytes # (Manual) Monocytes # (Manual) D-Dimer ABG pH POC ABG pCO2 POC ABG pO2 ABG pO2 ABG HCO3 ABG O2 Saturation ABG Base Excess ABG Potassium ABG Chloride ABG Glucose Oxyhemoglobin Sodium Potassium Chloride 94.4 L Carbon Dioxide 34 H BUN 74 H Glucose 133 H POC Glucose Calcium Magnesium Ferritin AST ALT Lactate Dehydrogenase C-Reactive Protein NT-Pro-B Natriuret Pep Total Protein Albumin Triglycerides Arterial Blood Glucose Arterial Blood Ionized Calcium Salicylates Acetaminophen
[2019-12-07] MEDS: VALPROIC ACID 250 MG/5 ML ORAL LIQD FEEDTUBE SCH ×2 (09:21→21:30)
[2019-12-07] MEDS: predniSONE 20 MG TAB PO SCH (09:22)
[2019-12-07] MEDS: LISINOPRIL 5 MG TAB PO SCH (09:22)
[2019-12-07] MEDS: FAMOTIDINE 20 MG TAB PO SCH ×2 (09:22→21:31)
[2019-12-07] MEDS: ENOXAPARIN 150 MG/1 ML INJ SUB-Q SCH (09:23)
[2019-12-07] MEDS: carvediloL 3.125 MG TAB PO SCH ×2 (09:24→21:32)
[2019-12-07] MEDS ORDERED: predniSONE 20 MG TAB PO SCH (10:00)
--- NOTE | 2019-12-07 10:41 | Progress Note ---
Assessment and Plan Acute PE Acute respiratory failure extubated 12/03/2019 negative for COVID-19 Echo this presentation reports mild dilated RV, normal LVEF 55-60% Hx of COPD Hx Psychiatric disorder Conservative cardiac management. We will follow intermittently. Subjective Date of service: 12/07/19 Principal diagnosis: Acute respiratory failure with hypoxia, COPD/CHF exacerbation Interval history: No cardiac events reported overnight. Stable sinus rhythm on telemetry. Objective Vital Signs Temp Pulse Pulse Pulse Resp Resp BP 12/07/19 09:24 85 94/57 12/07/19 09:22 85 95/57 12/07/19 07:17 98.5 F 76 20 102/63 12/07/19 04:26 97.6 F 78 20 96/61 12/06/19 23:27 83 12/06/19 20:56 85 20 12/06/19 20:27 80 22 12/06/19 19:11 98.1 F 84 16 89/50 12/06/19 16:02 97.9 F 79 22 101/63 12/06/19 12:42 12/06/19 11:38 98.0 F 20 106/60 12/06/19 11:36 85 79/44 Pulse Ox 12/07/19 09:24 12/07/19 09:22 12/07/19 07:17 81 L 12/07/19 04:26 88 12/06/19 23:27 12/06/19 20:56 94 12/06/19 20:27 96 12/06/19 19:11 81 L 12/06/19 16:02 84 12/06/19 12:42 94 12/06/19 11:38 12/06/19 11:36 89 - Physical Examination General: No Apparent Distress HEENT: Positive: PERRL Neck: Positive: neck supple Cardiac: Positive: Reg Rate and Rhythm Neuro: Positive: Grossly Intact Abdomen: Positive: Soft Skin: Positive: Clear Extremities: Absent: edema
--- NOTE | 2019-12-07 12:47 | Progress Note ---
Assessment and Plan Assessment and plan: 49-year-old male with a medical history of psychiatric problems on valproic acid presented to the hospital on 11/26 with cough, weakness, malaise and fatigue. He was also having shortness of breath. Here in the ER, patient was noted to be hypoxic and he was placed on a BiPAP with slight improvement. Patient was subsequently admitted to the hospital with differentials of COPD exacerbation, acute exacerbation of congestive heart failure, possible Covid pneumonia. Patient was intubated for respiratory failure. Cardiology, pulmonology and ID on board. COVID-19 test performed showed negative results. 11/28 -11/29. Negative COVID-19 test. Remains intubated. Patient getting diuresed 11/30. 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 12/01. Patient found to have PEM started on Lovenox. Patient was extubated to BiPAP. Patient was extubated on 12/03/2019 patient transferred to floor on 12/04/2019 patient continues to be in mild respiratory distress patient able to walk to the restroom slightly agitated has a new sacral area redness but no open wound see wound care notes. 12/06. His steroids have been tapered. He is still on Lasix 40 mg IV twice daily. Cardiology is following closely. Currently patient is on 60% of oxygen. Patient needs to use BiPAP at night. Plan to follow-up with pulmonology in the office for sleep study and pulmonary function test. Anticoagulation switch to Eliquis 5 mg twice daily. Procalcitonin ordered to rule out possible infection due to positive leukocytosis which could be as a result of steroid administration. Problems --Acute hypoxemic respiratory failure Current Visit: Yes Status: Acute Plan to address problem: Likely from severe COPD and CHF. Cardiology and pulmonology recommendations appreciated COVID-19 test negative Per ID coronavirus test to be repeated. COVID-19 test ordered this morning. ---Hypercapnic respiratory failure Current Visit: Yes Status: Acute Qualifiers: Chronicity: acute on chronic Qualified Code(s): J96.22 - Acute and chronic respiratory failure with hypercapnia Plan to address problem: Duo nebs [id number] and every 3 as needed Steroids tapered to 60 mg daily for now Pulmonary recommendations appreciated ---Suspected 2019 novel coronavirus infection Current Visit: Yes Status: Acute Plan to address problem: Coronavirus PCR negative To repeat coronavirus PCR on 12/07/2019 --- Acute pulmonary evaluation Current Visit: Yes Status: Acute Plan to address problem: Continue Eliquis twice daily Needs to have coagulation work-up as outpatient and heme follow-up ---Hypertension Current Visit: Yes Status: Chronic Qualifiers: Hypertension type: essential hypertension Qualified Code(s): I10 - [place] l (primary) hypertension Plan to address problem: Continue antihypertensives ---Acute exacerbation of CHF (congestive heart failure) Current Visit: Yes Status: Acute Qualifiers: Heart failure type: combined systolic and diastolic Qualified Code(s): I50.43 - Acute on chronic combined systolic (congestive) and diastolic (congestive) heart failure Plan to address problem: Echocardiogram shows ejection fraction of 55 to 60% Lasix 40 mg twice daily Plan to switch to daily from tomorrow From prerenal volume depletion ---Elevated LFTs Current Visit: Yes Status: Acute Plan to address problem: Passive congestion of the liver secondary to CHF Continue to monitor ---Coronary artery disease Current Visit: Yes Status: Chronic Qualifiers: Coronary Disease-Associated Artery/Lesion type: [place] artery [place] vs. transplanted heart: [place] heart Plan to address problem: On aspirin and probably but this is currently being held ? Cardiology following ---DVT prophylaxis Current Visit: Yes Status: Acute Plan to address problem: History Interval history: Patient seen and examined. He is on 60% oxygen. On steroids but refused medicati ons yesterday. Pulmonology is following. Hospitalist Physical - Constitutional Vitals: Temp Pulse Resp BP Pulse Ox 97.9 F 77 20 103/66 96 12/07/19 11:38 12/07/19 11:38 12/07/19 11:38 12/07/19 11:38 12/07/19 11:38 General appearance: Present: no acute distress, well-nourished - EENT Eyes: Present: PERRL - Respiratory Respiratory: bilateral: rhonchi - Cardiovascular Heart Sounds: Present: S1 & S2 - Extremities Extremities: no ischemia, No edema - Abdominal General gastrointestinal: soft, non-tender, distended, normal bowel sounds - Neurologic Neurologic: CNII-XII intact - Allied Health Allied health notes reviewed: nursing, RT, case management HEART Score - HEART Score Age: 45-65 Risk factors: 1-2 risk factors Troponin: 1-3x normal limit - Critical Actions Critical Actions: 4-6 pts:12-16.6% risk of adverse cardiac event. Should be admitted Results - Labs CBC & Chem 7: 12/06/19 04:28 12/06/19 04:28 Labs: Laboratory Last Values WBC 20.0 K/mm3 (4.5-11.0) H 12/06/19 04:28 RBC 5.68 M/mm3 (3.65-5.03) H 12/06/19 04:28 Hgb 17.8 gm/dl (11.8-15.2) H 12/06/19 04:28 Hct 53.8 % (35.5-45.6) H 12/06/19 04:28 MCV 95 fl (84-94) H 12/06/19 04:28 MCH 31 pg (28-32) 12/06/19 04:28 MCHC 33 % (32-34) 12/06/19 04:28 RDW 14.1 % (13.2-15.2) 12/06/19 04:28 Plt Count 148 K/mm3 (140-440) 12/06/19 04:28 Lymph % (Auto) 4.7 % (13.4-35.0) L 12/06/19 04:28 Faulk % (Auto) 4.1 % (0.0-7.3) 12/06/19 04:28 Eos % (Auto) 0.0 % (0.0-4.3) 12/06/19 04:28 Baso % (Auto) 0.1 % (0.0-1.8) 12/06/19 04:28 Lymph # (Auto) 0.9 K/mm3 (1.2-5.4) L 12/06/19 04:28 [place] # (Auto) 0.8 K/mm3 (0.0-0.8) 12/06/19 04:28 Eos # (Auto) 0.0 K/mm3 (0.0-0.4) 12/06/19 04:28 Baso # (Auto) 0.0 K/mm3 (0.0-0.1) 12/06/19 04:28 Add Manual Diff Complete 11/27/19 12:08 Total Counted 100 11/27/19 12:08 Seg Neutrophils % Head Lineman 12/06/19 04:28 Seg Neuts % (Manual) 76.0 % (40.0-70.0) H 11/27/19 12:08 Band Neutrophils % 3.0 % 11/27/19 12:08 Lymphocytes % (Manual) 3.0 % (13.4-35.0) L 11/27/19 12:08 Reactive Lymphs % (Man) 0 % 11/27/19 12:08 Monocytes % (Manual) 17.0 % (0.0-7.3) H 11/27/19 12:08 Eosinophils % (Manual) 0 % (0.0-4.3) 11/27/19 12:08 Basophils % (Manual) 0 % (0.0-1.8) 11/27/19 12:08 Metamyelocytes % 1.0 % 11/27/19 12:08 Myelocytes % 0 % 11/27/19 12:08 Promyelocytes % 0 % 11/27/19 12:08 Blast Cells % 0 % 11/27/19 12:08 Nucleated RBC % 1.0 % (0.0-0.9) H 11/27/19 12:08 Seg Neutrophils # 18.2 K/mm3 (1.8-7.7) H 12/06/19 04:28 Seg Neutrophils # Man 7.9 K/mm3 (1.8-7.7) H 11/27/19 12:08 Band Neutrophils # 0.3 K/mm3 11/27/19 12:08 Lymphocytes # (Manual) 0.3 K/mm3 (1.2-5.4) L 11/27/19 12:08 Abs React Lymphs (Man) 0.0 K/mm3 11/27/19 12:08 Monocytes # (Manual) 1.8 K/mm3 (0.0-0.8) H 11/27/19 12:08 Eosinophils # (Manual) 0.0 K/mm3 (0.0-0.4) 11/27/19 12:08 Basophils # (Manual) 0.0 K/mm3 (0.0-0.1) 11/27/19 12:08 Metamyelocytes # 0.1 K/mm3 11/27/19 12:08 Myelocytes # 0.0 K/mm3 11/27/19 12:08 Promyelocytes # 0.0 K/mm3 11/27/19 12:08 Blast Cells # 0.0 K/mm3 11/27/19 12:08 WBC Morphology Not Reportable 11/27/19 12:08 Hypersegmented Neuts Not Reportable 11/27/19 12:08 Hyposegmented Neuts Not Reportable 11/27/19 12:08 Hypogranular Neuts Not Reportable 11/27/19 12:08 Smudge Cells Not Reportable 11/27/19 12:08 Toxic Granulation Not Reportable 11/27/19 12:08 Toxic Vacuolation Not Reportable 11/27/19 12:08 Dohle Bodies Not Reportable 11/27/19 12:08 Pelger-Huet Anomaly Not Reportable 11/27/19 12:08 Malena Rods Not Reportable 11/27/19 12:08 Platelet Estimate Consistent w auto 11/27/19 12:08 Clumped Platelets Not Reportable 11/27/19 12:08 Plt Clumps, EDTA Not Reportable 11/27/19 12:08 Large Platelets Not Reportable 11/27/19 12:08 Giant Platelets Not Reportable 11/27/19 12:08 Platelet Satelliting Not Reportable 11/27/19 12:08 Plt Morphology Comment Not Reportable 11/27/19 12:08 RBC Morphology Normal 11/27/19 12:08 Dimorphic RBCs Not Reportable 11/27/19 12:08 Polychromasia Not Reportable 11/27/19 12:08 Hypochromasia Not Reportable 11/27/19 12:08 Poikilocytosis Not Reportable 11/27/19 12:08 Anisocytosis Not Reportable 11/27/19 12:08 Microcytosis Not Reportable 11/27/19 12:08 Macrocytosis Not Reportable 11/27/19 12:08 Spherocytes Not Reportable 11/27/19 12:08 Pappenheimer Bodies Not Reportable 11/27/19 12:08 Sickle Cells Not Reportable 11/27/19 12:08 Target Cells Not Reportable 11/27/19 12:08 Tear Drop Cells Not Reportable 11/27/19 12:08 Ovalocytes Not Reportable 11/27/19 12:08 Helmet Cells Not Reportable 11/27/19 12:08 Herrera-Cameron Bodies Not Reportable 11/27/19 12:08 [place] Rings Not Reportable 11/27/19 12:08 [place] Cells Not Reportable 11/27/19 12:08 Bite Cells Not Reportable 11/27/19 12:08 Crenated Cell Not Reportable 11/27/19 12:08 Elliptocytes Not Reportable 11/27/19 12:08 Acanthocytes (Spur) Not Reportable 11/27/19 12:08 Rouleaux Not Reportable 11/27/19 12:08 Hemoglobin C Crystals Not Reportable 11/27/19 12:08 Schistocytes Not Reportable 11/27/19 12:08 Malaria parasites Not Reportable 11/27/19 12:08 Rock Bodies Not Reportable 11/27/19 12:08 Hem Pathologist Commnt No 11/27/19 12:08 PT 14.6 Sec. (12.2-14.9) 11/27/19 12:08 INR 1.13 (0.87-1.13) 11/27/19 12:08 D-Dimer 2939.43 ng/mlDDU (0-234) H 12/01/19 14:29 ABG pH 7.458 pH Units (7.350-7.450) H 12/02/19 04:08 POC ABG pCO2 61.7 mmHg (32.0-48.0) H 11/30/19 04:40 ABG pCO2 60.1 mm Hg 12/02/19 04:08 POC ABG pO2 86.6 mmHg (83-108) 11/30/19 04:40 ABG pO2 66.2 mm Hg (80.0-90.0) L 12/02/19 04:08 POC ABG HCO3 39.2 11/30/19 04:40 ABG HCO3 41.6 mmol/L (20.0-26.0) H 12/02/19 04:08 ABG O2 Saturation 94.4 % (95.0-99.0) L 12/02/19 04:08 ABG O2 Content 20.5 (0.0-44) 12/02/19 04:08 POC ABG Base Excess 11.8 11/30/19 04:40 ABG Base Excess 14.5 mmol/L (-2.0-3.0) H 12/02/19 04:08 ABG Hemoglobin 15.8 gm/dl (14.0-18.0) 12/02/19 04:08 ABG Carboxyhemoglobin 1.5 % (0.0-5.0) 12/02/19 04:08 ABG Methemoglobin 0.6 % (0.0-1.5) 12/02/19 04:08 ABG Sodium 142.0 mmol/L (136.0-145.0) 11/30/19 04:40 ABG Potassium 4.6 mmol/L (3.40-4.50) H 11/30/19 04:40 ABG Chloride 97.0 mmol/L (98-107) L 11/30/19 04:40 ABG Glucose 167 mg/dL (65-95) H 11/30/19 04:40 Oxyhemoglobin 92.4 % (95.0-99.0) L 12/02/19 04:08 FiO2 40 % 12/02/19 04:08 Sodium 143 mmol/L (137-145) D 12/06/19 04:28 Potassium 4.5 mmol/L (3.6-5.0) 12/06/19 04:28 Chloride 94.4 mmol/L (98-107) L 12/06/19 04:28 Carbon Dioxide 34 mmol/L (22-30) H 12/06/19 04:28 Anion Gap 19 mmol/L 12/06/19 04:28 BUN 74 mg/dL (9-20) H 12/06/19 04:28 Creatinine 1.0 mg/dL (0.8-1.3) 12/06/19 04:28 Estimated GFR > 60 ml/min 12/06/19 04:28 BUN/Creatinine Ratio 74 % 12/06/19 04:28 Glucose 133 mg/dL (75-100) H 12/06/19 04:28 POC Glucose 149 (70-105) H 12/04/19 17:42 Hemoglobin A1c 4.7 % (4-6) 11/28/19 04:15 Lactic Acid 1.30 mmol/L (0.7-2.0) 11/27/19 12:08 Calcium 8.9 mg/dL (8.4-10.2) 12/06/19 04:28 Magnesium 3.00 mg/dL (1.7-2.3) H 11/27/19 12:08 Ferritin 369.3 ng/mL (30.0-300.0) H 12/01/19 14:29 Total Bilirubin 0.30 mg/dL (0.1-1.2) 11/30/19 04:31 AST 86 units/L (5-40) H 11/30/19 04:31 ALT 219 units/L (7-56) H 11/30/19 04:31 Alkaline Phosphatase 90 units/L (35-129) 11/30/19 04:31 Lactate Dehydrogenase 408 units/L (91-180) H 11/27/19 12:08 Total Creatine Kinase 83 units/L (55-170) 11/27/19 12:08 C-Reactive Protein 2.60 mg/dL (0.00-1.30) H 12/01/19 14:29 NT-Pro-B Natriuret Pep 33715 pg/mL (0-450) H 11/27/19 12:22 Total Protein 6.1 g/dL (6.3-8.2) L 11/30/19 04:31 Albumin 3.0 g/dL (3.9-5) L 11/30/19 04:31 Albumin/Globulin Ratio 1.0 % 11/30/19 04:31 Triglycerides 216 mg/dL (2-149) H 11/30/19 04:30 Procalcitonin 0.06 ng/mL (<0.15) 12/07/19 05:42 Arterial Blood Glucose 167 mg/dL (65-95) H 11/30/19 04:40 Arterial Blood Ionized Calcium 4.4 mg/dL (4.6-5.3) L 11/30/19 04:40 Salicylates < 0.3 mg/dL (2.8-20.0) L 11/27/19 12:08 Acetaminophen 5.0 ug/mL (10.0-30.0) L 11/27/19 12:08 Valproic Acid 64.7 ug/mL (50-100) 11/27/19 12:08 Coronavirus (PCR) Negative (Negative) 11/28/19 10:00 - Diagnostic Impressions Diagnostic Impressions: Echocardiogram 11/27/19 19:28 Transthoracic Echocardiogram Indication: SOB BP: 124/71 HR: 75 Conclusions *EF 55-60% *TR JET INADEQUATE TO DETERMINE RVSP *RV ENLARGEMENT DYSFUNCTION Findings Left Ventricle: The left ventricular chamber size is normal. Global left ventricular systolic function is normal. The estimated ejection fraction is 55-60%. Abnormal left ventricular diastolic filling is observed, consistent with impaired relaxation. Left Atrium: The left atrial chamber size is normal. Right Ventricle: The right ventricle is mildly dilated. The right ventricular global systolic function is moderately reduced. Right Atrium: The right atrial cavity size is normal. Aortic Valve: The aortic valve leaflets are mildly thickened. There is no evidence of aortic regurgitation. Mitral Valve: The mitral valve leaflets appear normal. There is no evidence of mitral regurgitation. Tricuspid Valve: There is no evidence of tricuspid valve regurgitation. Pulmonic Valve: The pulmonic valve is not well visualized. Pericardium: There is no pericardial effusion. Aorta: The aorta appears normal. Measurements Chambers 2D Name Value Normal Range IVSd (2D) 1.07 cm (0.6 - 1.1) LVPWd (2D) 0.96 cm (0.6 - 1.1) LVIDd (2D) 4.93 cm (3.7 - 5.6) LVIDs (2D) 4.08 cm (2 - 3.8) LV FS (2D) 17.21 % - Ao root diameter (2D) 3.72 cm (2 - 3.7) Volumes/Mass Name Value Normal Range LA ESV SP 4CH (A/L) 20.87 ml - LA ESV SP 2CH (A/L) 41 ml - LA ESV BP (A/L) 30.22 ml - LA ESV BP (A/L) index 14.96 ml/m2 - LA ESV SP 4CH (MOD) 21.34 ml - LA ESV SP 2CH (MOD) 40.04 ml - LA ESV BP (MOD) 29.33 ml - LA ESV BP (MOD) index 14.52 ml/m2 - Diastolic/Systolic Function Name Value Normal Range MV E-wave Vmax 0.48 m/sec - MV deceleration time 268.38 msec - MV A-wave Vmax 0.56 m/sec - MV E:A ratio 0.86 ratio - Aortic Valve Name Value Normal Range AV Vmax 1.22 m/sec - AV VTI 22.32 cm - AV peak gradient 5.99 mmHg - AV mean gradient 3.69 mmHg - LVOT diameter 2.65 cm - LVOT Vmax 0.73 m/sec - LVOT VTI 13.52 cm - LVOT peak gradient 2.13 mmHg - LVOT mean gradient 1.22 mmHg - SV LVOT 74.61 ml - AGNES (continuity Vmax) 3.29 cm2 - AGNES (continuity VTI) 3.34 cm2 - Tricuspid Valve Name Value Normal Range RAP 3 mmHg - IVC diameter 2.23 cm (1.2 - 2.3) Pulmonic Valve/Qp:Qs Name Value Normal Range PV acceleration time 98.95 msec - Cohen/IV: Voiding Method Incontinent IV Catheter Type [Right INT / Saline Lock Antecubital] IV Catheter Type [Left Wrist] INT / Saline Lock IV Catheter Type [Right Wrist] INT / Saline Lock IV Catheter Type [Left INT / Saline Lock Antecubital] IV Catheter Type [Right Hand] INT / Saline Lock Active Medications - Current Medications Current Medications: Generic Name Dose Route Start Last Admin Trade Name Freq PRN Reason Stop Dose Admin Acetaminophen 650 mg 11/27/19 19:22 11/29/19 23:20 Tylenol PO 650 mg Q4H PRN Administration Pain MILD(1-3)/Fever >100.5/DIXON Albuterol/Ipratropium 1 ampul 11/27/19 19:24 11/28/19 02:00 Duoneb *Not For Prn Use* IH 1 ampul Q3H PRN Administration Wheezing Albuterol/Ipratropium 1 ampul 11/27/19 20:00 12/07/19 08:31 Duoneb *Not For Prn Use* IH 1 ampul QIDRT AYAKA Administration Lipase/Protease/Amylase 1 each 11/29/19 12:44 [place] 10,500 Unit FEEDTUBE PRN PRN For Clogged Feeding Tube Apixaban 5 mg 12/07/19 22:00 Eliquis PO Q12HR AYAKA Protocol Budesonide 0.5 mg 12/06/19 10:00 12/07/19 08:31 Pulmicort IH 0.5 mg Q12HRT AYAKA Administration Carvedilol 3.125 mg 11/30/19 22:00 12/07/19 09:24 Coreg PO Not Given BID AYAKA Famotidine 20 mg 11/29/19 10:00 12/07/19 09:22 Pepcid PO 20 mg BID AYAKA Administration Furosemide 40 mg 12/07/19 08:00 12/07/19 09:24 Lasix IV Not Given 0600 AYAKA Lisinopril 2.5 mg 12/01/19 10:00 12/07/19 09:22 Zestril PO Not Given QDAY AYAKA Morphine Sulfate 2 mg 11/27/19 19:22 Morphine IV Q4H PRN Pain, Moderate (4-6) Olanzapine 20 mg 11/27/19 22:00 12/06/19 23:12 Zyprexa PO Not Given HS AYAKA Olanzapine 10 mg 11/30/19 11:00 12/07/19 09:24 Zyprexa PO 10 mg DAILY AYAKA Administration Ondansetron HCl 4 mg 11/27/19 19:22 Zofran IV Q3H PRN Nausea And Vomiting Prednisone 60 mg 12/07/19 10:00 12/07/19 09:22 Deltasone PO 60 mg QDAY AYAKA Administration Simple Syrup 15 ml 11/29/19 12:44 Simple Syrup FEEDTUBE PRN PRN Hypoglycemia Simple Syrup 30 ml 11/29/19 12:44 Simple Syrup FEEDTUBE PRN PRN Hypoglycemia Sodium Bicarbonate 325 mg 11/29/19 12:44 Sodium Bicarbonate FEEDTUBE PRN PRN For Clogged Feeding Tube Sodium Chloride 10 ml 11/27/19 22:00 12/07/19 09:23 Sodium Chloride Flush Syringe 10 Ml IV 10 ml BID AYAKA Administration Sodium Chloride 10 ml 11/27/19 19:22 12/04/19 05:50 Sodium Chloride Flush Syringe 10 Ml IV 10 ml PRN PRN Administration LINE FLUSH Valproic Acid 250 mg 11/29/19 10:00 12/07/19 09:21 Depakene Liq FEEDTUBE 250 mg BID AYAKA Administration Nutrition/Malnutrition Assess - Dietary Evaluation Nutrition/Malnutrition Findings: Nutrition Notes Start: 11/29/19 12:28 Freq: Status: Active Protocol: Document 12/03/19 12:57 AL (Rec: 12/03/19 13:07 AL [email or web address]) Co-Sign 12/03/19 12:57 MK Nutrition Notes Initial or Follow up Reassessment Current Diagnosis Coronary Artery Disease, Hypertension,Heart Failure Other Pertinent Diagnosis Acute respiratory failure Current Diet NPO after midnight Labs/Tests Reviewed Pertinent Medications Solumedrol Lasix Height 6 ft 1 in Weight 154.221 kg [place] Body Weight (kg) 83.63 BMI 44.9 Weight Status Morbidly Obese Subjective/Other Information RD FU for TF tolerance. TF not running at 40 ml/hr (goal rate). Pt off of the vent. Reports that his appetite is normal. Waiting for bedside swallow eval. for diet advancment. Percent of energy/protein needs met: 0%/0% Burn Absent Trauma Absent GI Symptoms None Current % PO Negligible Minimum of two criteria No physical signs of malnutrition #1 Nutrition Diagnosis Inadequate oral intake Diagnosis Progress(for reassessment Continues documentation) Is patient on ventilator? No Is Patient Ambulatory and/or Out of Bed No REE-([facility]-confined to bed) 2962.056 Kcal/Kg value to use for calculation 13 Approximate Energy Requirements Using 2005 kcal/Kg Calculation Used for Recommendations Kcal/kg Additional Notes Pro: 125-155 g (.8-1.0 g/kg ABW) Fluid: 1 ml/kcal Nutrition Intervention Change Diet Order: Advance diet when medically feasible Nutrition Support: DC Goal #1 Diet advancement when medically feasible. Anticipated Discharge Needs: Cardiac diet Follow-Up By: 12/07/19 Additional Comments FU for diet advancment
--- NOTE | 2019-12-07 13:48 | Progress Note ---
Assessment and Plan Cultures: Blood culture pending SARS CoV2 PCR negative Assessment: 49 years old female with morbid obesity, psychiatric disorder, admitted on 11/27/2019 due to a week history of worsening shortness of breath, cough, generalized weakness, malaise: #Severe sepsis: Present on admission with tachycardia, severe hypoxia likely due to bilateral pneumonia. #Strep pneumoniae pneumonia: Now resolved, status post treatment. #Acute hypoxemic respiratory failure: Initial O2 sat 69%, patient was on BiPAP, now intubated. discussed with Dr. Díaz, most likely secondary to non- compliance with CHF medications and accumulation of fluid. Woul get re-test to ensure infection did not tip him into exacerbations. #Elevated LFTs: Elevated 10 times baseline. From COVID #Morbid obesity: Associated with poor cell counts. #Left lung pulmonary embolism: Management per primary and cardiology. Recommendations: -Leukocytosis may be secondary to high-dose steroids. -Procalcitonin is normal, remain off antibiotics at this time. Will follow Rocky Cosby MD [facility] M: [phone] O: [phone] F: [phone] Subjective Date of service: 12/07/19 Principal diagnosis: Acute respiratory failure with hypoxia, COPD/CHF exacerbation Interval history: Afebrile, white count elevated at 20. Procalcitonin is resulted 0.06. Objective - Exam Narrative Exam: Physical Exam: Constitutional: Alert, cooperative. No acute distress Head, Ears, Nose: Normocephalic, atraumatic. External ears, nose normal Eyes: Conjunctivae/corneas clear. No icterus. No ptosis. Neck: Supple, no meningeal signs Oral: dentition fair, no thrush Cardiovascular: S1, S2 normal. Respiratory: Good air entry, clear to auscultation bilaterally GI: Soft, non-tender; bowel sounds normal. No peritoneal signs. Musculoskeletal: No pedal edema, no cyanosis. Skin: No rash or abscess Hem/Lymphatic: No palpable cervical or supraclavicular nodes. No lymphangitis Psych: Mood ok. Affect normal Neurological: Awake, alert, oriented. No gross abnormality - Constitutional Vitals: Vital Signs Temp Pulse Resp BP Pulse Ox 97.9 F 77 20 103/66 96 12/07/19 11:38 12/07/19 11:38 12/07/19 11:38 12/07/19 11:38 12/07/19 11:38 Temperature -Last 24 Hours Temperature 97.9 F Temperature 98.5 F Temperature 97.6 F Temperature 98.1 F Temperature 97.9 F - Labs CBC & Chem 7: 12/06/19 04:28 12/06/19 04:28
[2019-12-07] MEDS: APIXABAN 5 MG TAB PO SCH (21:31)
[2019-12-08] MEDS: FUROSEMIDE 40 MG/4 ML INJ IV SCH (05:44)
[2019-12-08] MEDS: IPRATROPIUM/ALBUTEROL SULFATE 3 ML AMPUL.NEB IH SCH ×4 (08:45→20:36)
[2019-12-08] MEDS: BUDESONIDE 0.5 MG/2 ML NEBU IH SCH ×2 (08:45→20:36)
--- NOTE | 2019-12-08 09:20 | Progress Note ---
Assessment and Plan Acute PE -initiated on Eliquis Acute respiratory failure extubated 12/03/2019 negative for COVID-19 Echo this presentation reports mild dilated RV, normal LVEF 55-60% Hx of COPD Hx Psychiatric disorder Conservative cardiac management. Subjective Date of service: 12/08/19 Principal diagnosis: Acute respiratory failure with hypoxia, COPD/CHF exacerbation Interval history: Patient remains on high flow oxygen. No cardiac events reported overnight. Stable sinus rhythm on telemetry. Objective Vital Signs Temp Pulse Pulse Pulse Pulse Pulse Pulse 12/08/19 07:54 98.0 F 88 12/08/19 05:16 97.5 F L 12/08/19 05:00 71 12/08/19 03:04 73 12/08/19 00:03 98.5 F 80 12/07/19 22:00 74 74 74 74 12/07/19 21:32 74 12/07/19 20:42 12/07/19 20:41 87 12/07/19 20:00 98.4 F 74 12/07/19 19:36 98.4 F 12/07/19 17:02 73 12/07/19 15:55 82 12/07/19 15:54 98.1 F 86 12/07/19 15:00 12/07/19 14:20 92 H 12/07/19 12:00 78 12/07/19 11:38 97.9 F 77 12/07/19 10:00 77 76 76 76 76 12/07/19 09:24 85 12/07/19 09:22 85 12/07/19 09:20 83 Pulse Resp Resp BP BP Pulse Ox 12/08/19 07:54 20 117/44 92 12/08/19 05:16 20 118/68 12/08/19 05:00 94 12/08/19 03:04 12/08/19 00:03 20 96/50 97 12/07/19 22:00 74 18 96 12/07/19 21:32 107/69 12/07/19 20:42 96 12/07/19 20:41 20 12/07/19 20:00 18 107/69 96 12/07/19 19:36 18 12/07/19 17:02 12/07/19 15:55 93 12/07/19 15:54 20 105/63 78 L 12/07/19 15:00 97 12/07/19 14:20 20 12/07/19 12:00 12/07/19 11:38 20 103/66 96 12/07/19 10:00 76 25 H 96 12/07/19 09:24 94/57 12/07/19 09:22 95/57 12/07/19 09:20 94/57 98 - Physical Examination General: No Apparent Distress HEENT: Positive: PERRL Neck: Positive: neck supple Cardiac: Positive: Reg Rate and Rhythm Neuro: Positive: Grossly Intact Extremities: Absent: edema
[2019-12-08 10:32] LABS: Hematocrit 51.3 % (35.5-45.6); Mean Corpuscular HGB Conc 33 % (32-34); Mean Corpuscular Volume 94 fl (84-94); Platelet Count 158 K/mm3 (140-440); Red Blood Count 5.45 M/mm3 (3.65-5.03); Red Cell Distribution Width 13.8 % (13.2-15.2)
[2019-12-08] MEDS: FAMOTIDINE 20 MG TAB PO SCH ×2 (10:39→21:10)
[2019-12-08 10:40] LABS: Alanine Aminotransferase 60 units/L (7-56); Albumin 3.3 g/dL (3.9-5); BUN/Creatinine Ratio 59; Blood Urea Nitrogen 59 mg/dL (9-20); Calcium 8.5 mg/dL (8.4-10.2); Hemolysis Index 14
[2019-12-08] MEDS: predniSONE 20 MG TAB PO SCH (10:40)
[2019-12-08] MEDS: APIXABAN 5 MG TAB PO SCH ×2 (10:40→21:10)
[2019-12-08] MEDS: VALPROIC ACID 250 MG/5 ML ORAL LIQD FEEDTUBE SCH ×2 (10:40→21:11)
[2019-12-08] MEDS: carvediloL 3.125 MG TAB PO SCH ×2 (10:41→21:09)
[2019-12-08] MEDS: LISINOPRIL 5 MG TAB PO SCH (10:41)
[2019-12-08 12:05] LABS: Basophils % (Manual) 0 % (0.0-1.8); RBC Morphology Normal; Total Cells Counted 100
--- NOTE | 2019-12-08 12:05 | Progress Note ---
Assessment and Plan 49 y/o male with acute respiratory failure, hypercapnic respiratory failure, and likely CHF, preserved EF 1. Spoke to RT in person. Orders reviewed. 2. Needs a CM consult to investigate home [employer] company and usage. 3. Continue BID lasix therapy. 4. Per chart, taking Prednisone 60 daily, will continue 5. Agree with switching to oral therapy for PE once ready. Will need hypercoag work up as an outpatient and heme follow up. Spoke with pharmacy on yesterday and we have switched to orals. Subjective Date of service: 12/08/19 Principal diagnosis: Acute respiratory failure with hypoxia, COPD/CHF exacerbation Interval history: Spoke with RT. Patient consistently removes HFNC. Bipap is not in room so order was not seen. Spoke with RT about this as well. Objective Vital Signs - 12hr 12/08/19 12/08/19 12/08/19 00:03 03:04 05:00 Temperature 98.5 F Pulse Rate 80 73 71 Pulse Rate [ Anterior Bilateral Throughout] Respiratory 20 Rate Respiratory Rate [Anterior Bilateral Throughout] Blood Pressure 96/50 O2 Sat by Pulse 97 94 Oximetry 12/08/19 12/08/19 12/08/19 05:16 07:54 08:45 Temperature 97.5 F L 98.0 F Pulse Rate 88 Pulse Rate [ 94 H Anterior Bilateral Throughout] Respiratory 20 20 Rate Respiratory 22 Rate [Anterior Bilateral Throughout] Blood Pressure 118/68 117/44 O2 Sat by Pulse 92 Oximetry 12/08/19 09:37 Temperature Pulse Rate Pulse Rate [ Anterior Bilateral Throughout] Respiratory Rate Respiratory Rate [Anterior Bilateral Throughout] Blood Pressure O2 Sat by Pulse 93 Oximetry Constitutional: no acute distress, alert Eyes: non-icteric ENT: oropharynx moist Neck: supple Effort: normal Ascultation: Bilateral: clear, diminished breath sounds, wheezes (bilateral wheezes) Percussion: Bilateral: not dull Cardiovascular: regular rate and rhythm (no mrg) Gastrointestinal: normoactive bowel sounds, soft, non-tender, non-distended Integumentary: normal Extremities: no cyanosis, no edema, pink and warm Neurologic: normal mental status, non-focal exam, pupils equal and round, CN II- XII normal Psychiatric: mood appropriate, affect normal CBC and BMP: 12/08/19 10:00 12/08/19 10:00 ABG, PT/INR, D-dimer: ABG ABG pH 7.458 pH Units (7.350-7.450) H 12/02/19 04:08 POC ABG pCO2 61.7 mmHg (32.0-48.0) H 11/30/19 04:40 ABG pCO2 60.1 mm Hg 12/02/19 04:08 POC ABG pO2 86.6 mmHg (83-108) 11/30/19 04:40 ABG pO2 66.2 mm Hg (80.0-90.0) L 12/02/19 04:08 POC ABG HCO3 39.2 11/30/19 04:40 ABG O2 Saturation 94.4 % (95.0-99.0) L 12/02/19 04:08 PT/INR, D-dimer PT 14.6 Sec. (12.2-14.9) 11/27/19 12:08 INR 1.13 (0.87-1.13) 11/27/19 12:08 D-Dimer 2939.43 ng/mlDDU (0-234) H 12/01/19 14:29 Abnormal lab findings: Abnormal Labs 11/27/19 11/27/19 11/27/19 11:55 12:08 12:08 WBC RBC Hgb Hct 45.8 H MCV 97 H Lymph % (Auto) Lymph # (Auto) Seg Neuts % (Manual) 76.0 H Lymphocytes % (Manual) 3.0 L Monocytes % (Manual) 17.0 H Nucleated RBC % 1.0 H Seg Neutrophils # Seg Neutrophils # Man 7.9 H Lymphocytes # (Manual) 0.3 L Monocytes # (Manual) 1.8 H D-Dimer ABG pH 7.250 L POC ABG pCO2 POC ABG pO2 ABG pO2 61.4 L ABG HCO3 36.5 H ABG O2 Saturation 86.3 L ABG Base Excess 5.9 H ABG Potassium ABG Chloride ABG Glucose Oxyhemoglobin 81.6 L Sodium Potassium 5.5 H Chloride 93.8 L Carbon Dioxide 38 H BUN 75 H Glucose 109 H POC Glucose Calcium 8.3 L Magnesium 3.00 H Ferritin AST 505 H ALT 375 H Lactate Dehydrogenase 408 H C-Reactive Protein 19.50 H NT-Pro-B Natriuret Pep Total Protein Albumin 3.5 L Triglycerides Arterial Blood Glucose Arterial Blood Ionized Calcium Salicylates Acetaminophen 11/27/19 11/27/19 11/27/19 12:08 12:08 12:08 WBC RBC Hgb Hct MCV Lymph % (Auto) Lymph # (Auto) Seg Neuts % (Manual) Lymphocytes % (Manual) Monocytes % (Manual) Nucleated RBC % Seg Neutrophils # Seg Neutrophils # Man Lymphocytes # (Manual) Monocytes # (Manual) D-Dimer ABG pH POC ABG pCO2 POC ABG pO2 ABG pO2 ABG HCO3 ABG O2 Saturation ABG Base Excess ABG Potassium ABG Chloride ABG Glucose Oxyhemoglobin Sodium Potassium Chloride Carbon Dioxide BUN Glucose POC Glucose Calcium Magnesium Ferritin 818.7 H AST ALT Lactate Dehydrogenase C-Reactive Protein NT-Pro-B Natriuret Pep Total Protein Albumin Triglycerides Arterial Blood Glucose Arterial Blood Ionized Calcium Salicylates < 0.3 L Acetaminophen 5.0 L 11/27/19 11/27/19 11/28/19 12:22 22:40 01:45 WBC RBC Hgb Hct MCV Lymph % (Auto) Lymph # (Auto) Seg Neuts % (Manual) Lymphocytes % (Manual) Monocytes % (Manual) Nucleated RBC % Seg Neutrophils # Seg Neutrophils # Man Lymphocytes # (Manual) Monocytes # (Manual) D-Dimer ABG pH 7.086 L 7.257 L POC ABG pCO2 133.5 H 81.8 H POC ABG pO2 78.4 L 172.6 H ABG pO2 ABG HCO3 ABG O2 Saturation ABG Base Excess ABG Potassium ABG Chloride ABG Glucose Oxyhemoglobin Sodium Potassium Chloride Carbon Dioxide BUN Glucose POC Glucose Calcium Magnesium Ferritin AST ALT Lactate Dehydrogenase C-Reactive Protein NT-Pro-B Natriuret Pep 25108 H Total Protein Albumin Triglycerides Arterial Blood Glucose Arterial Blood Ionized Calcium Salicylates Acetaminophen 11/28/19 11/28/19 11/28/19 05:25 12:36 12:36 WBC 11.3 H RBC Hgb Hct MCV 97 H Lymph % (Auto) Lymph # (Auto) Seg Neuts % (Manual) Lymphocytes % (Manual) Monocytes % (Manual) Nucleated RBC % Seg Neutrophils # Seg Neutrophils # Man Lymphocytes # (Manual) Monocytes # (Manual) D-Dimer ABG pH POC ABG pCO2 64.2 H POC ABG pO2 68.1 L ABG pO2 ABG HCO3 ABG O2 Saturation ABG Base Excess ABG Potassium ABG Chloride ABG Glucose Oxyhemoglobin Sodium Potassium 5.4 H Chloride 95.8 L Carbon Dioxide 38 H BUN 46 H Glucose 114 H POC Glucose Calcium 8.0 L Magnesium Ferritin AST 169 H ALT 284 H Lactate Dehydrogenase C-Reactive Protein NT-Pro-B Natriuret Pep Total Protein 5.9 L Albumin 2.9 L Triglycerides Arterial Blood Glucose Arterial Blood Ionized Calcium Salicylates Acetaminophen 11/28/19 11/29/19 11/29/19 15:41 02:42 12:02 WBC RBC Hgb Hct MCV Lymph % (Auto) Lymph # (Auto) Seg Neuts % (Manual) Lymphocytes % (Manual) Monocytes % (Manual) Nucleated RBC % Seg Neutrophils # Seg Neutrophils # Man Lymphocytes # (Manual) Monocytes # (Manual) D-Dimer ABG pH POC ABG pCO2 57.2 H POC ABG pO2 80.2 L ABG pO2 ABG HCO3 ABG O2 Saturation ABG Base Excess ABG Potassium 4.6 H ABG Chloride 97.0 L ABG Glucose 131 H Oxyhemoglobin Sodium Potassium Chloride Carbon Dioxide BUN Glucose POC Glucose 122 H 123 H Calcium Magnesium Ferritin AST ALT Lactate Dehydrogenase C-Reactive Protein NT-Pro-B Natriuret Pep Total Protein Albumin Triglycerides Arterial Blood Glucose 131 H Arterial Blood Ionized Calcium 4.1 L Salicylates Acetaminophen 11/29/19 11/29/19 11/30/19 14:48 17:23 04:30 WBC RBC Hgb Hct MCV Lymph % (Auto) Lymph # (Auto) Seg Neuts % (Manual) Lymphocytes % (Manual) Monocytes % (Manual) Nucleated RBC % Seg Neutrophils # Seg Neutrophils # Man Lymphocytes # (Manual) Monocytes # (Manual) D-Dimer ABG pH POC ABG pCO2 POC ABG pO2 ABG pO2 ABG HCO3 ABG O2 Saturation ABG Base Excess ABG Potassium ABG Chloride ABG Glucose Oxyhemoglobin Sodium 148 H Potassium Chloride 97.4 L Carbon Dioxide 38 H BUN 51 H Glucose 147 H POC Glucose 127 H Calcium 7.9 L Magnesium Ferritin AST ALT Lactate Dehydrogenase C-Reactive Protein NT-Pro-B Natriuret Pep Total Protein Albumin Triglycerides 216 H Arterial Blood Glucose Arterial Blood Ionized Calcium Salicylates Acetaminophen 11/30/19 11/30/19 11/30/19 04:31 04:40 12:33 WBC RBC Hgb Hct MCV Lymph % (Auto) Lymph # (Auto) Seg Neuts % (Manual) Lymphocytes % (Manual) Monocytes % (Manual) Nucleated RBC % Seg Neutrophils # Seg Neutrophils # Man Lymphocytes # (Manual) Monocytes # (Manual) D-Dimer ABG pH POC ABG pCO2 61.7 H POC ABG pO2 ABG pO2 ABG HCO3 ABG O2 Saturation ABG Base Excess ABG Potassium 4.6 H ABG Chloride 97.0 L ABG Glucose 167 H Oxyhemoglobin Sodium Potassium Chloride 96.6 L Carbon Dioxide 37 H BUN 52 H Glucose 173 H POC Glucose 164 H Calcium 8.2 L Magnesium Ferritin AST 86 H ALT 219 H Lactate Dehydrogenase C-Reactive Protein NT-Pro-B Natriuret Pep Total Protein 6.1 L Albumin 3.0 L Triglycerides Arterial Blood Glucose 167 H Arterial Blood Ionized Calcium 4.4 L Salicylates Acetaminophen 11/30/19 12/01/19 12/01/19 18:38 00:26 04:16 WBC RBC Hgb Hct MCV Lymph % (Auto) Lymph # (Auto) Seg Neuts % (Manual) Lymphocytes % (Manual) Monocytes % (Manual) Nucleated RBC % Seg Neutrophils # Seg Neutrophils # Man Lymphocytes # (Manual) Monocytes # (Manual) D-Dimer ABG pH POC ABG pCO2 POC ABG pO2 ABG pO2 186.5 H ABG HCO3 42.8 H ABG O2 Saturation 99.1 H ABG Base Excess 14.4 H ABG Potassium ABG Chloride ABG Glucose Oxyhemoglobin Sodium Potassium Chloride Carbon Dioxide BUN Glucose POC Glucose 142 H 158 H Calcium Magnesium Ferritin AST ALT Lactate Dehydrogenase C-Reactive Protein NT-Pro-B Natriuret Pep Total Protein Albumin Triglycerides Arterial Blood Glucose Arterial Blood Ionized Calcium Salicylates Acetaminophen 12/01/19 12/01/19 12/01/19 05:35 12:17 14:29 WBC RBC Hgb Hct MCV Lymph % (Auto) Lymph # (Auto) Seg Neuts % (Manual) Lymphocytes % (Manual) Monocytes % (Manual) Nucleated RBC % Seg Neutrophils # Seg Neutrophils # Man Lymphocytes # (Manual) Monocytes # (Manual) D-Dimer 2939.43 H ABG pH POC ABG pCO2 POC ABG pO2 ABG pO2 ABG HCO3 ABG O2 Saturation ABG Base Excess ABG Potassium ABG Chloride ABG Glucose Oxyhemoglobin Sodium Potassium Chloride Carbon Dioxide BUN Glucose POC Glucose 151 H 191 H Calcium Magnesium Ferritin AST ALT Lactate Dehydrogenase C-Reactive Protein NT-Pro-B Natriuret Pep Total Protein Albumin Triglycerides Arterial Blood Glucose Arterial Blood Ionized Calcium Salicylates Acetaminophen 12/01/19 12/01/19 12/01/19 14:29 14:29 17:59 WBC RBC Hgb Hct MCV Lymph % (Auto) Lymph # (Auto) Seg Neuts % (Manual) Lymphocytes % (Manual) Monocytes % (Manual) Nucleated RBC % Seg Neutrophils # Seg Neutrophils # Man Lymphocytes # (Manual) Monocytes # (Manual) D-Dimer ABG pH POC ABG pCO2 POC ABG pO2 ABG pO2 ABG HCO3 ABG O2 Saturation ABG Base Excess ABG Potassium ABG Chloride ABG Glucose Oxyhemoglobin Sodium Potassium Chloride Carbon Dioxide BUN Glucose POC Glucose 147 H Calcium Magnesium Ferritin 369.3 H AST ALT Lactate Dehydrogenase C-Reactive Protein 2.60 H NT-Pro-B Natriuret Pep Total Protein Albumin Triglycerides Arterial Blood Glucose Arterial Blood Ionized Calcium Salicylates Acetaminophen 12/01/19 12/02/19 12/02/19 23:58 04:08 05:03 WBC 12.2 H RBC Hgb 15.8 H Hct 47.8 H MCV 95 H Lymph % (Auto) Lymph # (Auto) Seg Neuts % (Manual) Lymphocytes % (Manual) Monocytes % (Manual) Nucleated RBC % Seg Neutrophils # Seg Neutrophils # Man Lymphocytes # (Manual) Monocytes # (Manual) D-Dimer ABG pH 7.458 H POC ABG pCO2 POC ABG pO2 ABG pO2 66.2 L ABG HCO3 41.6 H ABG O2 Saturation 94.4 L ABG Base Excess 14.5 H ABG Potassium ABG Chloride ABG Glucose Oxyhemoglobin 92.4 L Sodium Potassium Chloride Carbon Dioxide BUN Glucose POC Glucose 126 H Calcium Magnesium Ferritin AST ALT Lactate Dehydrogenase C-Reactive Protein NT-Pro-B Natriuret Pep Total Protein Albumin Triglycerides Arterial Blood Glucose Arterial Blood Ionized Calcium Salicylates Acetaminophen 12/02/19 12/02/19 12/02/19 05:03 05:36 12:17 WBC RBC Hgb Hct MCV Lymph % (Auto) Lymph # (Auto) Seg Neuts % (Manual) Lymphocytes % (Manual) Monocytes % (Manual) Nucleated RBC % Seg Neutrophils # Seg Neutrophils # Man Lymphocytes # (Manual) Monocytes # (Manual) D-Dimer ABG pH POC ABG pCO2 POC ABG pO2 ABG pO2 ABG HCO3 ABG O2 Saturation ABG Base Excess ABG Potassium ABG Chloride ABG Glucose Oxyhemoglobin Sodium 151 H Potassium Chloride Carbon Dioxide 40 H BUN 54 H Glucose 142 H POC Glucose 136 H 135 H Calcium Magnesium Ferritin AST ALT Lactate Dehydrogenase C-Reactive Protein NT-Pro-B Natriuret Pep Total Protein Albumin Triglycerides Arterial Blood Glucose Arterial Blood Ionized Calcium Salicylates Acetaminophen 12/02/19 12/02/19 12/03/19 17:59 23:37 05:27 WBC RBC Hgb Hct MCV Lymph % (Auto) Lymph # (Auto) Seg Neuts % (Manual) Lymphocytes % (Manual) Monocytes % (Manual) Nucleated RBC % Seg Neutrophils # Seg Neutrophils # Man Lymphocytes # (Manual) Monocytes # (Manual) D-Dimer ABG pH POC ABG pCO2 POC ABG pO2 ABG pO2 ABG HCO3 ABG O2 Saturation ABG Base Excess ABG Potassium ABG Chloride ABG Glucose Oxyhemoglobin Sodium Potassium Chloride Carbon Dioxide BUN Glucose POC Glucose 139 H 120 H 110 H Calcium Magnesium Ferritin AST ALT Lactate Dehydrogenase C-Reactive Protein NT-Pro-B Natriuret Pep Total Protein Albumin Triglycerides Arterial Blood Glucose Arterial Blood Ionized Calcium Salicylates Acetaminophen 12/03/19 12/04/19 12/06/19 11:34 17:42 04:28 WBC 20.0 H RBC 5.68 H Hgb 17.8 H Hct 53.8 H MCV 95 H Lymph % (Auto) 4.7 L Lymph # (Auto) 0.9 L Seg Neuts % (Manual) Lymphocytes % (Manual) Monocytes % (Manual) Nucleated RBC % Seg Neutrophils # 18.2 H Seg Neutrophils # Man Lymphocytes # (Manual) Monocytes # (Manual) D-Dimer ABG pH POC ABG pCO2 POC ABG pO2 ABG pO2 ABG HCO3 ABG O2 Saturation ABG Base Excess ABG Potassium ABG Chloride ABG Glucose Oxyhemoglobin Sodium Potassium Chloride Carbon Dioxide BUN Glucose POC Glucose 110 H 149 H Calcium Magnesium Ferritin AST ALT Lactate Dehydrogenase C-Reactive Protein NT-Pro-B Natriuret Pep Total Protein Albumin Triglycerides Arterial Blood Glucose Arterial Blood Ionized Calcium Salicylates Acetaminophen 12/06/19 12/08/19 12/08/19 04:28 10:00 10:00 WBC 14.8 H RBC 5.45 H Hgb 17.0 H Hct 51.3 H MCV Lymph % (Auto) Lymph # (Auto) Seg Neuts % (Manual) Lymphocytes % (Manual) Monocytes % (Manual) Nucleated RBC % Seg Neutrophils # Seg Neutrophils # Man Lymphocytes # (Manual) Monocytes # (Manual) D-Dimer ABG pH POC ABG pCO2 POC ABG pO2 ABG pO2 ABG HCO3 ABG O2 Saturation ABG Base Excess ABG Potassium ABG Chloride ABG Glucose Oxyhemoglobin Sodium 135 L D Potassium Chloride 94.4 L 90.9 L Carbon Dioxide 34 H 33 H BUN 74 H 59 H Glucose 133 H 123 H POC Glucose Calcium Magnesium Ferritin AST ALT 60 H Lactate Dehydrogenase C-Reactive Protein NT-Pro-B Natriuret Pep Total Protein Albumin 3.3 L Triglycerides Arterial Blood Glucose Arterial Blood Ionized Calcium Salicylates Acetaminophen
[2019-12-08 12:06] LABS: Platelet Estimate Consistent w Auto
--- NOTE | 2019-12-08 14:28 | Progress Note ---
Assessment and Plan Cultures: Blood culture pending SARS CoV2 PCR negative Assessment: 49 years old female with morbid obesity, psychiatric disorder, admitted on 11/27/2019 due to a week history of worsening shortness of breath, cough, generalized weakness, malaise: #Severe sepsis: Present on admission with tachycardia, severe hypoxia likely due to bilateral pneumonia. #Strep pneumoniae pneumonia: Now resolved, status post treatment. #Acute hypoxemic respiratory failure: Initial O2 sat 69%, patient was on BiPAP, now intubated. discussed with Dr. Díaz, most likely secondary to non- compliance with CHF medications and accumulation of fluid. Woul get re-test to ensure infection did not tip him into exacerbations. #Elevated LFTs: Elevated 10 times baseline. From COVID #Morbid obesity: Associated with poor cell counts. #Left lung pulmonary embolism: Management per primary and cardiology. Recommendations: -Leukocytosis may be secondary to high-dose steroids. -Procalcitonin is normal, remain off antibiotics at this time. Will follow Rocky Cosby MD [facility] M: [phone] O: [phone] F: [phone] Subjective Date of service: 12/08/19 Principal diagnosis: Acute respiratory failure with hypoxia, COPD/CHF exacerbation Interval history: Afebrile, improving white count now 14.8. Currently on high flow nasal cannula. Objective - Exam Narrative Exam: Physical Exam: Constitutional: Alert, cooperative. No acute distress Head, Ears, Nose: Normocephalic, atraumatic. External ears, nose normal Eyes: Conjunctivae/corneas clear. No icterus. No ptosis. Neck: Supple, no meningeal signs Oral: dentition fair, no thrush Cardiovascular: S1, S2 normal. Respiratory: Good air entry, clear to auscultation bilaterally GI: Soft, non-tender; bowel sounds normal. No peritoneal signs. Musculoskeletal: No pedal edema, no cyanosis. Skin: No rash or abscess Hem/Lymphatic: No palpable cervical or supraclavicular nodes. No lymphangitis Psych: Mood ok. Affect normal Neurological: Awake, alert, oriented. No gross abnormality - Constitutional Vitals: Vital Signs Temp Pulse Resp BP Pulse Ox 98.0 F 94 H 20 98/68 93 12/08/19 07:54 12/08/19 12:23 12/08/19 12:23 12/08/19 10:38 12/08/19 09:37 Temperature -Last 24 Hours Temperature 98.0 F Temperature 97.5 F Temperature 98.5 F Temperature 98.4 F Temperature 98.4 F Temperature 98.1 F - Labs CBC & Chem 7: 12/08/19 10:00 12/08/19 10:00 Labs: Abnormal lab results 12/08/19 12/08/19 Range/Units 10:00 10:00 WBC 14.8 H (4.5-11.0) K/mm3 RBC 5.45 H (3.65-5.03) M/mm3 Hgb 17.0 H (11.8-15.2) gm/dl Hct 51.3 H (35.5-45.6) % Seg Neuts % (Manual) 87.0 H (40.0-70.0) % Lymphocytes % (Manual) 8.0 L (13.4-35.0) % Seg Neutrophils # Man 12.9 H (1.8-7.7) K/mm3 Sodium 135 L D (137-145) mmol/L Chloride 90.9 L (98-107) mmol/L Carbon Dioxide 33 H (22-30) mmol/L BUN 59 H (9-20) mg/dL Glucose 123 H (75-100) mg/dL ALT 60 H (7-56) units/L Albumin 3.3 L (3.9-5) g/dL
--- NOTE | 2019-12-08 15:06 | Progress Note ---
Assessment and Plan Assessment and plan: 49-year-old male with a medical history of psychiatric problems on valproic acid presented to the hospital on 11/26 with cough, weakness, malaise and fatigue. He was also having shortness of breath. Here in the ER, patient was noted to be hypoxic and he was placed on a BiPAP with slight improvement. Patient was subsequently admitted to the hospital with differentials of COPD exacerbation, acute exacerbation of congestive heart failure, possible Covid pneumonia. Patient was intubated for respiratory failure. Cardiology, pulmonology and ID on board. COVID-19 test performed showed negative results. 11/28 -11/29. Negative COVID-19 test. Remains intubated. Patient getting diuresed 11/30. 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 12/01. Patient found to have PEM started on Lovenox. Patient was extubated to BiPAP. Patient was extubated on 12/03/2019 patient transferred to floor on 12/04/2019 patient continues to be in mild respiratory distress patient able to walk to the restroom slightly agitated has a new sacral area redness but no open wound see wound care notes. 12/06. His steroids have been tapered. He is still on Lasix 40 mg IV twice daily. Cardiology is following closely. Currently patient is on 60% of oxygen. Patient needs to use BiPAP at night. Plan to follow-up with pulmonology in the office for sleep study and pulmonary function test. Anticoagulation switch to Eliquis 5 mg twice daily. Procalcitonin ordered to rule out possible infection but increased WBC could be as a result of steroid administration. 12/07. Still on 60-65% oxygen. Pulmonology following. Procalcitonin negative. Problems --Acute hypoxemic respiratory failure Current Visit: Yes Status: Acute Plan to address problem: Likely from severe COPD and CHF. Cardiology and pulmonology recommendations appreciated COVID-19 test negative Per ID coronavirus test to be repeated. COVID-19 test ordered this morning. ---Hypercapnic respiratory failure Current Visit: Yes Status: Acute Qualifiers: Chronicity: acute on chronic Qualified Code(s): J96.22 - Acute and chronic respiratory failure with hypercapnia Plan to address problem: Duo nebs [id number] and every 3 as needed Steroids tapered to 60 mg daily for now Pulmonary recommendations appreciated ---Suspected 2019 novel coronavirus infection Current Visit: Yes Status: Acute Plan to address problem: Coronavirus PCR negative To repeat coronavirus PCR on 12/07/2019 --- Acute pulmonary evaluation Current Visit: Yes Status: Acute Plan to address problem: Continue Eliquis twice daily Needs to have coagulation work-up as outpatient and heme follow-up ---Hypertension Current Visit: Yes Status: Chronic Qualifiers: Hypertension type: essential hypertension Qualified Code(s): I10 - Essential (primary) hypertension Plan to address problem: Continue antihypertensives ---Acute exacerbation of CHF (congestive heart failure) Current Visit: Yes Status: Acute Qualifiers: Heart failure type: combined systolic and diastolic Qualified Code(s): I50.43 - Acute on chronic combined systolic (congestive) and diastolic (congestive) heart failure Plan to address problem: Echocardiogram shows ejection fraction of 55 to 60% Lasix 40 mg twice daily ---Elevated LFTs Current Visit: Yes Status: Acute Plan to address problem: Passive congestion of the liver secondary to CHF Continue to monitor ---Coronary artery disease Current Visit: Yes Status: Chronic Qualifiers: Coronary Disease-Associated Artery/Lesion type: [place] artery [place] vs. transplanted heart: [place] heart Plan to address problem: On aspirin and probably but this is currently being held ? Cardiology following ---DVT prophylaxis Current Visit: Yes Status: Acute Plan to address problem: History Interval history: Patient seen and examined. Has no complaints. Hospitalist Physical - Constitutional Vitals: Temp Pulse Resp BP Pulse Ox 98.0 F 94 H 20 98/68 93 12/08/19 07:54 12/08/19 12:23 12/08/19 12:23 12/08/19 10:38 12/08/19 09:37 General appearance: Present: no acute distress, well-nourished - EENT Eyes: Present: PERRL - Neck Neck: Present: supple - Respiratory Respiratory: bilateral: wheezing - Cardiovascular Heart Sounds: Present: S1 & S2 - Extremities Extremities: No edema - Abdominal General gastrointestinal: soft, non-tender, normal bowel sounds - Psychiatric Psychiatric: appropriate mood/affect - Neurologic Neurologic: CNII-XII intact HEART Score - HEART Score Age: 45-65 Risk factors: 1-2 risk factors Troponin: 1-3x normal limit - Critical Actions Critical Actions: 4-6 pts:12-16.6% risk of adverse cardiac event. Should be admitted Results - Labs CBC & Chem 7: 12/08/19 10:00 12/08/19 10:00 Labs: Laboratory Last Values WBC 14.8 K/mm3 (4.5-11.0) H 12/08/19 10:00 RBC 5.45 M/mm3 (3.65-5.03) H 12/08/19 10:00 Hgb 17.0 gm/dl (11.8-15.2) H 12/08/19 10:00 Hct 51.3 % (35.5-45.6) H 12/08/19 10:00 MCV 94 fl (84-94) 12/08/19 10:00 MCH 31 pg (28-32) 12/08/19 10:00 MCHC 33 % (32-34) 12/08/19 10:00 RDW 13.8 % (13.2-15.2) 12/08/19 10:00 Plt Count 158 K/mm3 (140-440) 12/08/19 10:00 Lymph % (Auto) 4.7 % (13.4-35.0) L 12/06/19 04:28 [place] % (Auto) 4.1 % (0.0-7.3) 12/06/19 04:28 Eos % (Auto) 0.0 % (0.0-4.3) 12/06/19 04:28 Baso % (Auto) 0.1 % (0.0-1.8) 12/06/19 04:28 Lymph # (Auto) 0.9 K/mm3 (1.2-5.4) L 12/06/19 04:28 [place] # (Auto) 0.8 K/mm3 (0.0-0.8) 12/06/19 04:28 Eos # (Auto) 0.0 K/mm3 (0.0-0.4) 12/06/19 04:28 Baso # (Auto) 0.0 K/mm3 (0.0-0.1) 12/06/19 04:28 Add Manual Diff Complete 12/08/19 10:00 Total Counted 100 12/08/19 10:00 Seg Neutrophils % Media Manager 12/06/19 04:28 Seg Neuts % (Manual) 87.0 % (40.0-70.0) H 12/08/19 10:00 Band Neutrophils % 0 % 12/08/19 10:00 Lymphocytes % (Manual) 8.0 % (13.4-35.0) L 12/08/19 10:00 Reactive Lymphs % (Man) 0 % 12/08/19 10:00 Monocytes % (Manual) 4.0 % (0.0-7.3) 12/08/19 10:00 Eosinophils % (Manual) 1.0 % (0.0-4.3) 12/08/19 10:00 Basophils % (Manual) 0 % (0.0-1.8) 12/08/19 10:00 Metamyelocytes % 0 % 12/08/19 10:00 Myelocytes % 0 % 12/08/19 10:00 Promyelocytes % 0 % 12/08/19 10:00 Blast Cells % 0 % 12/08/19 10:00 Nucleated RBC % Not Reportable 12/08/19 10:00 Seg Neutrophils # 18.2 K/mm3 (1.8-7.7) H 12/06/19 04:28 Seg Neutrophils # Man 12.9 K/mm3 (1.8-7.7) H 12/08/19 10:00 Band Neutrophils # 0.0 K/mm3 12/08/19 10:00 Lymphocytes # (Manual) 1.2 K/mm3 (1.2-5.4) 12/08/19 10:00 Abs React Lymphs (Man) 0.0 K/mm3 12/08/19 10:00 Monocytes # (Manual) 0.6 K/mm3 (0.0-0.8) 12/08/19 10:00 Eosinophils # (Manual) 0.1 K/mm3 (0.0-0.4) 12/08/19 10:00 Basophils # (Manual) 0.0 K/mm3 (0.0-0.1) 12/08/19 10:00 Metamyelocytes # 0.0 K/mm3 12/08/19 10:00 Myelocytes # 0.0 K/mm3 12/08/19 10:00 Promyelocytes # 0.0 K/mm3 12/08/19 10:00 Blast Cells # 0.0 K/mm3 12/08/19 10:00 WBC Morphology Not Reportable 12/08/19 10:00 Hypersegmented Neuts Not Reportable 12/08/19 10:00 Hyposegmented Neuts Not Reportable 12/08/19 10:00 Hypogranular Neuts Not Reportable 12/08/19 10:00 Smudge Cells Not Reportable 12/08/19 10:00 Toxic Granulation Not Reportable 12/08/19 10:00 Toxic Vacuolation Not Reportable 12/08/19 10:00 Dohle Bodies Not Reportable 12/08/19 10:00 Pelger-Huet Anomaly Not Reportable 12/08/19 10:00 Malena Rods Not Reportable 12/08/19 10:00 Platelet Estimate Consistent w auto 12/08/19 10:00 Clumped Platelets Not Reportable 12/08/19 10:00 Plt Clumps, EDTA Not Reportable 12/08/19 10:00 Large Platelets Not Reportable 12/08/19 10:00 Giant Platelets Not Reportable 12/08/19 10:00 Platelet Satelliting Not Reportable 12/08/19 10:00 Plt Morphology Comment Not Reportable 12/08/19 10:00 RBC Morphology Normal 12/08/19 10:00 Dimorphic RBCs Not Reportable 12/08/19 10:00 Polychromasia Not Reportable 12/08/19 10:00 Hypochromasia Not Reportable 12/08/19 10:00 Poikilocytosis Not Reportable 12/08/19 10:00 Anisocytosis Not Reportable 12/08/19 10:00 Microcytosis Not Reportable 12/08/19 10:00 Macrocytosis Not Reportable 12/08/19 10:00 Spherocytes Not Reportable 12/08/19 10:00 Pappenheimer Bodies Not Reportable 12/08/19 10:00 Sickle Cells Not Reportable 12/08/19 10:00 Target Cells Not Reportable 12/08/19 10:00 Tear Drop Cells Not Reportable 12/08/19 10:00 Ovalocytes Not Reportable 12/08/19 10:00 Helmet Cells Not Reportable 12/08/19 10:00 [place]rera-[place] Bodies Not Reportable 12/08/19 10:00 [place] Rings Not Reportable 12/08/19 10:00 [place] Cells Not Reportable 12/08/19 10:00 Bite Cells Not Reportable 12/08/19 10:00 Crenated Cell Not Reportable 12/08/19 10:00 Elliptocytes Not Reportable 12/08/19 10:00 Acanthocytes (Spur) Not Reportable 12/08/19 10:00 Rouleaux Not Reportable 12/08/19 10:00 Hemoglobin C Crystals Not Reportable 12/08/19 10:00 Schistocytes Not Reportable 12/08/19 10:00 Malaria parasites Not Reportable 12/08/19 10:00 Rock Bodies Not Reportable 12/08/19 10:00 Hem Pathologist Commnt No 12/08/19 10:00 PT 14.6 Sec. (12.2-14.9) 11/27/19 12:08 INR 1.13 (0.87-1.13) 11/27/19 12:08 D-Dimer 2939.43 ng/mlDDU (0-234) H 12/01/19 14:29 ABG pH 7.458 pH Units (7.350-7.450) H 12/02/19 04:08 POC ABG pCO2 61.7 mmHg (32.0-48.0) H 11/30/19 04:40 ABG pCO2 60.1 mm Hg 12/02/19 04:08 POC ABG pO2 86.6 mmHg (83-108) 11/30/19 04:40 ABG pO2 66.2 mm Hg (80.0-90.0) L 12/02/19 04:08 POC ABG HCO3 39.2 11/30/19 04:40 ABG HCO3 41.6 mmol/L (20.0-26.0) H 12/02/19 04:08 ABG O2 Saturation 94.4 % (95.0-99.0) L 12/02/19 04:08 ABG O2 Content 20.5 (0.0-44) 12/02/19 04:08 POC ABG Base Excess 11.8 11/30/19 04:40 ABG Base Excess 14.5 mmol/L (-2.0-3.0) H 12/02/19 04:08 ABG Hemoglobin 15.8 gm/dl (14.0-18.0) 12/02/19 04:08 ABG Carboxyhemoglobin 1.5 % (0.0-5.0) 12/02/19 04:08 ABG Methemoglobin 0.6 % (0.0-1.5) 12/02/19 04:08 ABG Sodium 142.0 mmol/L (136.0-145.0) 11/30/19 04:40 ABG Potassium 4.6 mmol/L (3.40-4.50) H 11/30/19 04:40 ABG Chloride 97.0 mmol/L (98-107) L 11/30/19 04:40 ABG Glucose 167 mg/dL (65-95) H 11/30/19 04:40 Oxyhemoglobin 92.4 % (95.0-99.0) L 12/02/19 04:08 FiO2 40 % 12/02/19 04:08 Sodium 135 mmol/L (137-145) L D 12/08/19 10:00 Potassium 3.9 mmol/L (3.6-5.0) 12/08/19 10:00 Chloride 90.9 mmol/L (98-107) L 12/08/19 10:00 Carbon Dioxide 33 mmol/L (22-30) H 12/08/19 10:00 Anion Gap 15 mmol/L 12/08/19 10:00 BUN 59 mg/dL (9-20) H 12/08/19 10:00 Creatinine 1.0 mg/dL (0.8-1.3) 12/08/19 10:00 Estimated GFR > 60 ml/min 12/08/19 10:00 BUN/Creatinine Ratio 59 % 12/08/19 10:00 Glucose 123 mg/dL (75-100) H 12/08/19 10:00 POC Glucose 149 (70-105) H 12/04/19 17:42 Hemoglobin A1c 4.7 % (4-6) 11/28/19 04:15 Lactic Acid 1.30 mmol/L (0.7-2.0) 11/27/19 12:08 Calcium 8.5 mg/dL (8.4-10.2) 12/08/19 10:00 Magnesium 3.00 mg/dL (1.7-2.3) H 11/27/19 12:08 Ferritin 369.3 ng/mL (30.0-300.0) H 12/01/19 14:29 Total Bilirubin 1.10 mg/dL (0.1-1.2) 12/08/19 10:00 AST 31 units/L (5-40) 12/08/19 10:00 ALT 60 units/L (7-56) H 12/08/19 10:00 Alkaline Phosphatase 67 units/L (35-129) 12/08/19 10:00 Lactate Dehydrogenase 408 units/L (91-180) H 11/27/19 12:08 Total Creatine Kinase 83 units/L (55-170) 11/27/19 12:08 C-Reactive Protein 2.60 mg/dL (0.00-1.30) H 12/01/19 14:29 NT-Pro-B Natriuret Pep 19905 pg/mL (0-450) H 11/27/19 12:22 Total Protein 6.4 g/dL (6.3-8.2) 12/08/19 10:00 Albumin 3.3 g/dL (3.9-5) L 12/08/19 10:00 Albumin/Globulin Ratio 1.1 % 12/08/19 10:00 Triglycerides 216 mg/dL (2-149) H 11/30/19 04:30 Procalcitonin 0.06 ng/mL (<0.15) 12/07/19 05:42 Arterial Blood Glucose 167 mg/dL (65-95) H 11/30/19 04:40 Arterial Blood Ionized Calcium 4.4 mg/dL (4.6-5.3) L 11/30/19 04:40 Salicylates < 0.3 mg/dL (2.8-20.0) L 11/27/19 12:08 Acetaminophen 5.0 ug/mL (10.0-30.0) L 11/27/19 12:08 Valproic Acid 64.7 ug/mL (50-100) 11/27/19 12:08 Coronavirus (PCR) Negative (Negative) 12/08/19 07:08 - Diagnostic Impressions Diagnostic Impressions: Echocardiogram 11/27/19 19:28 Transthoracic Echocardiogram Indication: SOB BP: 124/71 HR: 75 Conclusions *EF 55-60% *TR JET INADEQUATE TO DETERMINE RVSP *RV ENLARGEMENT DYSFUNCTION Findings Left Ventricle: The left ventricular chamber size is normal. Global left ventricular systolic function is normal. The estimated ejection fraction is 55-60%. Abnormal left ventricular diastolic filling is observed, consistent with impaired relaxation. Left Atrium: The left atrial chamber size is normal. Right Ventricle: The right ventricle is mildly dilated. The right ventricular global systolic function is moderately reduced. Right Atrium: The right atrial cavity size is normal. Aortic Valve: The aortic valve leaflets are mildly thickened. There is no evidence of aortic regurgitation. Mitral Valve: The mitral valve leaflets appear normal. There is no evidence of mitral regurgitation. Tricuspid Valve: There is no evidence of tricuspid valve regurgitation. Pulmonic Valve: The pulmonic valve is not well visualized. Pericardium: There is no pericardial effusion. Aorta: The aorta appears normal. Measurements Chambers 2D Name Value Normal Range IVSd (2D) 1.07 cm (0.6 - 1.1) LVPWd (2D) 0.96 cm (0.6 - 1.1) LVIDd (2D) 4.93 cm (3.7 - 5.6) LVIDs (2D) 4.08 cm (2 - 3.8) LV FS (2D) 17.21 % - Ao root diameter (2D) 3.72 cm (2 - 3.7) Volumes/Mass Name Value Normal Range LA ESV SP 4CH (A/L) 20.87 ml - LA ESV SP 2CH (A/L) 41 ml - LA ESV BP (A/L) 30.22 ml - LA ESV BP (A/L) index 14.96 ml/m2 - LA ESV SP 4CH (MOD) 21.34 ml - LA ESV SP 2CH (MOD) 40.04 ml - LA ESV BP (MOD) 29.33 ml - LA ESV BP (MOD) index 14.52 ml/m2 - Diastolic/Systolic Function Name Value Normal Range MV E-wave Vmax 0.48 m/sec - MV deceleration time 268.38 msec - MV A-wave Vmax 0.56 m/sec - MV E:A ratio 0.86 ratio - Aortic Valve Name Value Normal Range AV Vmax 1.22 m/sec - AV VTI 22.32 cm - AV peak gradient 5.99 mmHg - AV mean gradient 3.69 mmHg - LVOT diameter 2.65 cm - LVOT Vmax 0.73 m/sec - LVOT VTI 13.52 cm - LVOT peak gradient 2.13 mmHg - LVOT mean gradient 1.22 mmHg - SV LVOT 74.61 ml - AGNES (continuity Vmax) 3.29 cm2 - AGNES (continuity VTI) 3.34 cm2 - Tricuspid Valve Name Value Normal Range RAP 3 mmHg - IVC diameter 2.23 cm (1.2 - 2.3) Pulmonic Valve/Qp:Qs Name Value Normal Range PV acceleration time 98.95 msec - Cohen/IV: Voiding Method Incontinent IV Catheter Type [Right INT / Saline Lock Antecubital] IV Catheter Type [Left Wrist] INT / Saline Lock IV Catheter Type [Right Wrist] INT / Saline Lock IV Catheter Type [Left INT / Saline Lock Antecubital] IV Catheter Type [Right Hand] INT / Saline Lock Active Medications - Current Medications Current Medications: Generic Name Dose Route Start Last Admin Trade Name Freq PRN Reason Stop Dose Admin Acetaminophen 650 mg 11/27/19 19:22 11/29/19 23:20 Tylenol PO 650 mg Q4H PRN Administration Pain MILD(1-3)/Fever >100.5/DIXON Albuterol/Ipratropium 1 ampul 11/27/19 19:24 11/28/19 02:00 Duoneb *Not For Prn Use* IH 1 ampul Q3H PRN Administration Wheezing Albuterol/Ipratropium 1 ampul 11/27/19 20:00 12/08/19 12:23 Duoneb *Not For Prn Use* IH 1 ampul QIDRT AYAKA Administration Lipase/Protease/Amylase 1 each 11/29/19 12:44 [place] 10,500 Unit FEEDTUBE PRN PRN For Clogged Feeding Tube Apixaban 5 mg 12/07/19 22:00 12/08/19 10:40 Eliquis PO 5 mg Q12HR AYAKA Administration Protocol Budesonide 0.5 mg 12/06/19 10:00 12/08/19 08:45 Pulmicort IH 0.5 mg Q12HRT AYAKA Administration Carvedilol 3.125 mg 11/30/19 22:00 12/08/19 10:41 Coreg PO Not Given BID AYAKA Famotidine 20 mg 11/29/19 10:00 12/08/19 10:39 Pepcid PO 20 mg BID AYAKA Administration Furosemide 40 mg 12/07/19 08:00 12/08/19 05:44 Lasix IV 40 mg 0600 AYAKA Administration Lisinopril 2.5 mg 12/01/19 10:00 12/08/19 10:41 Zestril PO Not Given QDAY AYAKA Morphine Sulfate 2 mg 11/27/19 19:22 Morphine IV Q4H PRN Pain, Moderate (4-6) Olanzapine 20 mg 11/27/19 22:00 12/07/19 21:31 Zyprexa PO 20 mg HS AYAKA Administration Olanzapine 10 mg 11/30/19 11:00 12/08/19 10:56 Zyprexa PO 10 mg DAILY AYAKA Administration Ondansetron HCl 4 mg 11/27/19 19:22 Zofran IV Q3H PRN Nausea And Vomiting Prednisone 60 mg 12/07/19 10:00 12/08/19 10:40 Deltasone PO 60 mg QDAY AYAKA Administration Simple Syrup 15 ml 11/29/19 12:44 Simple Syrup FEEDTUBE PRN PRN Hypoglycemia Simple Syrup 30 ml 11/29/19 12:44 Simple Syrup FEEDTUBE PRN PRN Hypoglycemia Sodium Bicarbonate 325 mg 11/29/19 12:44 Sodium Bicarbonate FEEDTUBE PRN PRN For Clogged Feeding Tube Sodium Chloride 10 ml 11/27/19 22:00 12/07/19 21:33 Sodium Chloride Flush Syringe 10 Ml IV 10 ml BID AYAKA Administration Sodium Chloride 10 ml 11/27/19 19:22 12/04/19 05:50 Sodium Chloride Flush Syringe 10 Ml IV 10 ml PRN PRN Administration LINE FLUSH Valproic Acid 250 mg 11/29/19 10:00 12/08/19 10:40 Depakene Liq FEEDTUBE 250 mg BID AYAKA Administration Nutrition/Malnutrition Assess - Dietary Evaluation Nutrition/Malnutrition Findings: Nutrition Notes Start: 11/29/19 12:28 Freq: Status: Active Protocol: Document 12/07/19 13:36 TAY (Rec: 12/07/19 13:41 TAY [id number]) Co-Sign 12/07/19 13:36 LM Nutrition Notes Initial or Follow up Reassessment Current Diagnosis Coronary Artery Disease, Hypertension,Heart Failure Other Pertinent Diagnosis Acute respiratory failure Current Diet Pureed cardiac Labs/Tests BUN 74 Pertinent Medications Reviewed Height 6 ft 1 in Weight 154.221 kg [place] Body Weight (kg) 83.63 BMI 44.9 Weight Status Morbidly Obese Subjective/Other Information F/U for diet advancement. Pt receiving pureed cardiac diet. Per RN, pt consuming 100%. Percent of energy/protein needs met: 90%/61% Burn Absent Trauma Absent GI Symptoms None Current % PO Negligible Minimum of two criteria No physical signs of malnutrition #1 Nutrition Diagnosis Inadequate oral intake As Evidenced by Signs and Symptoms Pt consuming 100% pureed diet Diagnosis Progress(for reassessment Improved documentation) Is patient on ventilator? No Is Patient Ambulatory and/or Out of Bed No REE-([place]-St. Jeor-confined to bed) 2962.056 Kcal/Kg value to use for calculation 13 Approximate Energy Requirements Using 2005 kcal/Kg Calculation Used for Recommendations Kcal/kg Additional Notes Pro: 125-155 g (.8-1.0 g/kg ABW) Fluid: 1 ml/kcal Nutrition Intervention Change Diet Order: Advance diet when medically feasible Goal #1 Diet advancement when medically feasible. Goal #2 Meet at least 75% energy and protein needs Anticipated Discharge Needs: Cardiac diet Follow-Up By: 12/14/19 Additional Comments F/U for intakes and diet advancement
[2019-12-09] MEDS: FUROSEMIDE 40 MG/4 ML INJ IV SCH (05:10)
[2019-12-09] MEDS: IPRATROPIUM/ALBUTEROL SULFATE 3 ML AMPUL.NEB IH SCH ×4 (07:45→22:30)
[2019-12-09] MEDS: BUDESONIDE 0.5 MG/2 ML NEBU IH SCH ×2 (07:45→22:30)
--- NOTE | 2019-12-09 08:55 | Progress Note ---
Assessment and Plan 49 y/o male with acute respiratory failure, hypercapnic respiratory failure, and likely CHF, preserved EF 1. Wean HFNC as tolerated. 2. Needs a CM consult to investigate home P[employer] company and usage. Not sure how much help they will be. Patient should qualify for LTACH given his ICU stay for intubation and prolonged need for HFNC. 3. Continue BID lasix therapy. 4. Per chart, taking Prednisone 60 daily, will continue. Should stay on this dosing until oxygen requirement decreases then will wean further. 5. Oral therapy for VTE 6. Hopeful CM can help to arrange a plan for discharge, given his noncompliance with therapy he will likely benefit from LTACH with pulmonary rehab to help wean FiO2. Subjective Date of service: 12/09/19 Principal diagnosis: Acute respiratory failure with hypoxia, COPD/CHF exacerbation Interval history: No bipap use. NO documentation of refusal. No machine in room. Per patient he refuses to use the machine and does not need it. He refuses to tell me the physician who gave it him in the past. Remains on HFNC. Spoke to Case Management in the hallway but was no help in regards to placement. Objective Vital Signs - 12hr 12/08/19 12/08/19 12/08/19 21:09 22:00 23:02 Temperature 97.8 F Pulse Rate 92 H 82 Pulse Rate [ Anterior Bilateral Throughout] Respiratory 19 Rate Respiratory Rate [Anterior Bilateral Throughout] Blood Pressure 101/55 104/67 O2 Sat by Pulse 97 94 Oximetry 12/09/19 12/09/19 12/09/19 03:24 04:01 07:45 Temperature 98.3 F Pulse Rate 73 70 Pulse Rate [ 90 Anterior Bilateral Throughout] Respiratory 17 Rate Respiratory 20 Rate [Anterior Bilateral Throughout] Blood Pressure 110/75 O2 Sat by Pulse 98 Oximetry 12/09/19 08:29 Temperature Pulse Rate Pulse Rate [ Anterior Bilateral Throughout] Respiratory Rate Respiratory Rate [Anterior Bilateral Throughout] Blood Pressure O2 Sat by Pulse 96 Oximetry Constitutional: no acute distress, alert Eyes: non-icteric ENT: oropharynx moist Neck: supple Effort: normal Ascultation: Bilateral: clear, diminished breath sounds, wheezes (bilateral wheezes) Percussion: Bilateral: not dull Cardiovascular: regular rate and rhythm (no mrg) Gastrointestinal: normoactive bowel sounds, soft, non-tender, non-distended Integumentary: normal Extremities: no cyanosis, no edema, pink and warm Neurologic: normal mental status, non-focal exam, pupils equal and round, CN II- XII normal Psychiatric: mood appropriate, affect normal CBC and BMP: 12/08/19 10:00 12/08/19 10:00 ABG, PT/INR, D-dimer: ABG ABG pH 7.458 pH Units (7.350-7.450) H 12/02/19 04:08 POC ABG pCO2 61.7 mmHg (32.0-48.0) H 11/30/19 04:40 ABG pCO2 60.1 mm Hg 12/02/19 04:08 POC ABG pO2 86.6 mmHg (83-108) 11/30/19 04:40 ABG pO2 66.2 mm Hg (80.0-90.0) L 12/02/19 04:08 POC ABG HCO3 39.2 11/30/19 04:40 ABG O2 Saturation 94.4 % (95.0-99.0) L 12/02/19 04:08 PT/INR, D-dimer PT 14.6 Sec. (12.2-14.9) 11/27/19 12:08 INR 1.13 (0.87-1.13) 11/27/19 12:08 D-Dimer 2939.43 ng/mlDDU (0-234) H 12/01/19 14:29 Abnormal lab findings: Abnormal Labs 11/27/19 11/27/19 11/27/19 11:55 12:08 12:08 WBC RBC Hgb Hct 45.8 H MCV 97 H Lymph % (Auto) Lymph # (Auto) Seg Neuts % (Manual) 76.0 H Lymphocytes % (Manual) 3.0 L Monocytes % (Manual) 17.0 H Nucleated RBC % 1.0 H Seg Neutrophils # Seg Neutrophils # Man 7.9 H Lymphocytes # (Manual) 0.3 L Monocytes # (Manual) 1.8 H D-Dimer ABG pH 7.250 L POC ABG pCO2 POC ABG pO2 ABG pO2 61.4 L ABG HCO3 36.5 H ABG O2 Saturation 86.3 L ABG Base Excess 5.9 H ABG Potassium ABG Chloride ABG Glucose Oxyhemoglobin 81.6 L Sodium Potassium 5.5 H Chloride 93.8 L Carbon Dioxide 38 H BUN 75 H Glucose 109 H POC Glucose Calcium 8.3 L Magnesium 3.00 H Ferritin AST 505 H ALT 375 H Lactate Dehydrogenase 408 H C-Reactive Protein 19.50 H NT-Pro-B Natriuret Pep Total Protein Albumin 3.5 L Triglycerides Arterial Blood Glucose Arterial Blood Ionized Calcium Salicylates Acetaminophen 11/27/19 11/27/19 11/27/19 12:08 12:08 12:08 WBC RBC Hgb Hct MCV Lymph % (Auto) Lymph # (Auto) Seg Neuts % (Manual) Lymphocytes % (Manual) Monocytes % (Manual) Nucleated RBC % Seg Neutrophils # Seg Neutrophils # Man Lymphocytes # (Manual) Monocytes # (Manual) D-Dimer ABG pH POC ABG pCO2 POC ABG pO2 ABG pO2 ABG HCO3 ABG O2 Saturation ABG Base Excess ABG Potassium ABG Chloride ABG Glucose Oxyhemoglobin Sodium Potassium Chloride Carbon Dioxide BUN Glucose POC Glucose Calcium Magnesium Ferritin 818.7 H AST ALT Lactate Dehydrogenase C-Reactive Protein NT-Pro-B Natriuret Pep Total Protein Albumin Triglycerides Arterial Blood Glucose Arterial Blood Ionized Calcium Salicylates < 0.3 L Acetaminophen 5.0 L 11/27/19 11/27/19 11/28/19 12:22 22:40 01:45 WBC RBC Hgb Hct MCV Lymph % (Auto) Lymph # (Auto) Seg Neuts % (Manual) Lymphocytes % (Manual) Monocytes % (Manual) Nucleated RBC % Seg Neutrophils # Seg Neutrophils # Man Lymphocytes # (Manual) Monocytes # (Manual) D-Dimer ABG pH 7.086 L 7.257 L POC ABG pCO2 133.5 H 81.8 H POC ABG pO2 78.4 L 172.6 H ABG pO2 ABG HCO3 ABG O2 Saturation ABG Base Excess ABG Potassium ABG Chloride ABG Glucose Oxyhemoglobin Sodium Potassium Chloride Carbon Dioxide BUN Glucose POC Glucose Calcium Magnesium Ferritin AST ALT Lactate Dehydrogenase C-Reactive Protein NT-Pro-B Natriuret Pep 25421 H Total Protein Albumin Triglycerides Arterial Blood Glucose Arterial Blood Ionized Calcium Salicylates Acetaminophen 11/28/19 11/28/19 11/28/19 05:25 12:36 12:36 WBC 11.3 H RBC Hgb Hct MCV 97 H Lymph % (Auto) Lymph # (Auto) Seg Neuts % (Manual) Lymphocytes % (Manual) Monocytes % (Manual) Nucleated RBC % Seg Neutrophils # Seg Neutrophils # Man Lymphocytes # (Manual) Monocytes # (Manual) D-Dimer ABG pH POC ABG pCO2 64.2 H POC ABG pO2 68.1 L ABG pO2 ABG HCO3 ABG O2 Saturation ABG Base Excess ABG Potassium ABG Chloride ABG Glucose Oxyhemoglobin Sodium Potassium 5.4 H Chloride 95.8 L Carbon Dioxide 38 H BUN 46 H Glucose 114 H POC Glucose Calcium 8.0 L Magnesium Ferritin AST 169 H ALT 284 H Lactate Dehydrogenase C-Reactive Protein NT-Pro-B Natriuret Pep Total Protein 5.9 L Albumin 2.9 L Triglycerides Arterial Blood Glucose Arterial Blood Ionized Calcium Salicylates Acetaminophen 11/28/19 11/29/19 11/29/19 15:41 02:42 12:02 WBC RBC Hgb Hct MCV Lymph % (Auto) Lymph # (Auto) Seg Neuts % (Manual) Lymphocytes % (Manual) Monocytes % (Manual) Nucleated RBC % Seg Neutrophils # Seg Neutrophils # Man Lymphocytes # (Manual) Monocytes # (Manual) D-Dimer ABG pH POC ABG pCO2 57.2 H POC ABG pO2 80.2 L ABG pO2 ABG HCO3 ABG O2 Saturation ABG Base Excess ABG Potassium 4.6 H ABG Chloride 97.0 L ABG Glucose 131 H Oxyhemoglobin Sodium Potassium Chloride Carbon Dioxide BUN Glucose POC Glucose 122 H 123 H Calcium Magnesium Ferritin AST ALT Lactate Dehydrogenase C-Reactive Protein NT-Pro-B Natriuret Pep Total Protein Albumin Triglycerides Arterial Blood Glucose 131 H Arterial Blood Ionized Calcium 4.1 L Salicylates Acetaminophen 11/29/19 11/29/19 11/30/19 14:48 17:23 04:30 WBC RBC Hgb Hct MCV Lymph % (Auto) Lymph # (Auto) Seg Neuts % (Manual) Lymphocytes % (Manual) Monocytes % (Manual) Nucleated RBC % Seg Neutrophils # Seg Neutrophils # Man Lymphocytes # (Manual) Monocytes # (Manual) D-Dimer ABG pH POC ABG pCO2 POC ABG pO2 ABG pO2 ABG HCO3 ABG O2 Saturation ABG Base Excess ABG Potassium ABG Chloride ABG Glucose Oxyhemoglobin Sodium 148 H Potassium Chloride 97.4 L Carbon Dioxide 38 H BUN 51 H Glucose 147 H POC Glucose 127 H Calcium 7.9 L Magnesium Ferritin AST ALT Lactate Dehydrogenase C-Reactive Protein NT-Pro-B Natriuret Pep Total Protein Albumin Triglycerides 216 H Arterial Blood Glucose Arterial Blood Ionized Calcium Salicylates Acetaminophen 11/30/19 11/30/19 11/30/19 04:31 04:40 12:33 WBC RBC Hgb Hct MCV Lymph % (Auto) Lymph # (Auto) Seg Neuts % (Manual) Lymphocytes % (Manual) Monocytes % (Manual) Nucleated RBC % Seg Neutrophils # Seg Neutrophils # Man Lymphocytes # (Manual) Monocytes # (Manual) D-Dimer ABG pH POC ABG pCO2 61.7 H POC ABG pO2 ABG pO2 ABG HCO3 ABG O2 Saturation ABG Base Excess ABG Potassium 4.6 H ABG Chloride 97.0 L ABG Glucose 167 H Oxyhemoglobin Sodium Potassium Chloride 96.6 L Carbon Dioxide 37 H BUN 52 H Glucose 173 H POC Glucose 164 H Calcium 8.2 L Magnesium Ferritin AST 86 H ALT 219 H Lactate Dehydrogenase C-Reactive Protein NT-Pro-B Natriuret Pep Total Protein 6.1 L Albumin 3.0 L Triglycerides Arterial Blood Glucose 167 H Arterial Blood Ionized Calcium 4.4 L Salicylates Acetaminophen 11/30/19 12/01/19 12/01/19 18:38 00:26 04:16 WBC RBC Hgb Hct MCV Lymph % (Auto) Lymph # (Auto) Seg Neuts % (Manual) Lymphocytes % (Manual) Monocytes % (Manual) Nucleated RBC % Seg Neutrophils # Seg Neutrophils # Man Lymphocytes # (Manual) Monocytes # (Manual) D-Dimer ABG pH POC ABG pCO2 POC ABG pO2 ABG pO2 186.5 H ABG HCO3 42.8 H ABG O2 Saturation 99.1 H ABG Base Excess 14.4 H ABG Potassium ABG Chloride ABG Glucose Oxyhemoglobin Sodium Potassium Chloride Carbon Dioxide BUN Glucose POC Glucose 142 H 158 H Calcium Magnesium Ferritin AST ALT Lactate Dehydrogenase C-Reactive Protein NT-Pro-B Natriuret Pep Total Protein Albumin Triglycerides Arterial Blood Glucose Arterial Blood Ionized Calcium Salicylates Acetaminophen 12/01/19 12/01/19 12/01/19 05:35 12:17 14:29 WBC RBC Hgb Hct MCV Lymph % (Auto) Lymph # (Auto) Seg Neuts % (Manual) Lymphocytes % (Manual) Monocytes % (Manual) Nucleated RBC % Seg Neutrophils # Seg Neutrophils # Man Lymphocytes # (Manual) Monocytes # (Manual) D-Dimer 2939.43 H ABG pH POC ABG pCO2 POC ABG pO2 ABG pO2 ABG HCO3 ABG O2 Saturation ABG Base Excess ABG Potassium ABG Chloride ABG Glucose Oxyhemoglobin Sodium Potassium Chloride Carbon Dioxide BUN Glucose POC Glucose 151 H 191 H Calcium Magnesium Ferritin AST ALT Lactate Dehydrogenase C-Reactive Protein NT-Pro-B Natriuret Pep Total Protein Albumin Triglycerides Arterial Blood Glucose Arterial Blood Ionized Calcium Salicylates Acetaminophen 12/01/19 12/01/19 12/01/19 14:29 14:29 17:59 WBC RBC Hgb Hct MCV Lymph % (Auto) Lymph # (Auto) Seg Neuts % (Manual) Lymphocytes % (Manual) Monocytes % (Manual) Nucleated RBC % Seg Neutrophils # Seg Neutrophils # Man Lymphocytes # (Manual) Monocytes # (Manual) D-Dimer ABG pH POC ABG pCO2 POC ABG pO2 ABG pO2 ABG HCO3 ABG O2 Saturation ABG Base Excess ABG Potassium ABG Chloride ABG Glucose Oxyhemoglobin Sodium Potassium Chloride Carbon Dioxide BUN Glucose POC Glucose 147 H Calcium Magnesium Ferritin 369.3 H AST ALT Lactate Dehydrogenase C-Reactive Protein 2.60 H NT-Pro-B Natriuret Pep Total Protein Albumin Triglycerides Arterial Blood Glucose Arterial Blood Ionized Calcium Salicylates Acetaminophen 12/01/19 12/02/19 12/02/19 23:58 04:08 05:03 WBC 12.2 H RBC Hgb 15.8 H Hct 47.8 H MCV 95 H Lymph % (Auto) Lymph # (Auto) Seg Neuts % (Manual) Lymphocytes % (Manual) Monocytes % (Manual) Nucleated RBC % Seg Neutrophils # Seg Neutrophils # Man Lymphocytes # (Manual) Monocytes # (Manual) D-Dimer ABG pH 7.458 H POC ABG pCO2 POC ABG pO2 ABG pO2 66.2 L ABG HCO3 41.6 H ABG O2 Saturation 94.4 L ABG Base Excess 14.5 H ABG Potassium ABG Chloride ABG Glucose Oxyhemoglobin 92.4 L Sodium Potassium Chloride Carbon Dioxide BUN Glucose POC Glucose 126 H Calcium Magnesium Ferritin AST ALT Lactate Dehydrogenase C-Reactive Protein NT-Pro-B Natriuret Pep Total Protein Albumin Triglycerides Arterial Blood Glucose Arterial Blood Ionized Calcium Salicylates Acetaminophen 12/02/19 12/02/19 12/02/19 05:03 05:36 12:17 WBC RBC Hgb Hct MCV Lymph % (Auto) Lymph # (Auto) Seg Neuts % (Manual) Lymphocytes % (Manual) Monocytes % (Manual) Nucleated RBC % Seg Neutrophils # Seg Neutrophils # Man Lymphocytes # (Manual) Monocytes # (Manual) D-Dimer ABG pH POC ABG pCO2 POC ABG pO2 ABG pO2 ABG HCO3 ABG O2 Saturation ABG Base Excess ABG Potassium ABG Chloride ABG Glucose Oxyhemoglobin Sodium 151 H Potassium Chloride Carbon Dioxide 40 H BUN 54 H Glucose 142 H POC Glucose 136 H 135 H Calcium Magnesium Ferritin AST ALT Lactate Dehydrogenase C-Reactive Protein NT-Pro-B Natriuret Pep Total Protein Albumin Triglycerides Arterial Blood Glucose Arterial Blood Ionized Calcium Salicylates Acetaminophen 12/02/19 12/02/19 12/03/19 17:59 23:37 05:27 WBC RBC Hgb Hct MCV Lymph % (Auto) Lymph # (Auto) Seg Neuts % (Manual) Lymphocytes % (Manual) Monocytes % (Manual) Nucleated RBC % Seg Neutrophils # Seg Neutrophils # Man Lymphocytes # (Manual) Monocytes # (Manual) D-Dimer ABG pH POC ABG pCO2 POC ABG pO2 ABG pO2 ABG HCO3 ABG O2 Saturation ABG Base Excess ABG Potassium ABG Chloride ABG Glucose Oxyhemoglobin Sodium Potassium Chloride Carbon Dioxide BUN Glucose POC Glucose 139 H 120 H 110 H Calcium Magnesium Ferritin AST ALT Lactate Dehydrogenase C-Reactive Protein NT-Pro-B Natriuret Pep Total Protein Albumin Triglycerides Arterial Blood Glucose Arterial Blood Ionized Calcium Salicylates Acetaminophen 12/03/19 12/04/19 12/06/19 11:34 17:42 04:28 WBC 20.0 H RBC 5.68 H Hgb 17.8 H Hct 53.8 H MCV 95 H Lymph % (Auto) 4.7 L Lymph # (Auto) 0.9 L Seg Neuts % (Manual) Lymphocytes % (Manual) Monocytes % (Manual) Nucleated RBC % Seg Neutrophils # 18.2 H Seg Neutrophils # Man Lymphocytes # (Manual) Monocytes # (Manual) D-Dimer ABG pH POC ABG pCO2 POC ABG pO2 ABG pO2 ABG HCO3 ABG O2 Saturation ABG Base Excess ABG Potassium ABG Chloride ABG Glucose Oxyhemoglobin Sodium Potassium Chloride Carbon Dioxide BUN Glucose POC Glucose 110 H 149 H Calcium Magnesium Ferritin AST ALT Lactate Dehydrogenase C-Reactive Protein NT-Pro-B Natriuret Pep Total Protein Albumin Triglycerides Arterial Blood Glucose Arterial Blood Ionized Calcium Salicylates Acetaminophen 12/06/19 12/08/19 12/08/19 04:28 10:00 10:00 WBC 14.8 H RBC 5.45 H Hgb 17.0 H Hct 51.3 H MCV Lymph % (Auto) Lymph # (Auto) Seg Neuts % (Manual) 87.0 H Lymphocytes % (Manual) 8.0 L Monocytes % (Manual) Nucleated RBC % Seg Neutrophils # Seg Neutrophils # Man 12.9 H Lymphocytes # (Manual) Monocytes # (Manual) D-Dimer ABG pH POC ABG pCO2 POC ABG pO2 ABG pO2 ABG HCO3 ABG O2 Saturation ABG Base Excess ABG Potassium ABG Chloride ABG Glucose Oxyhemoglobin Sodium 135 L D Potassium Chloride 94.4 L 90.9 L Carbon Dioxide 34 H 33 H BUN 74 H 59 H Glucose 133 H 123 H POC Glucose Calcium Magnesium Ferritin AST ALT 60 H Lactate Dehydrogenase C-Reactive Protein NT-Pro-B Natriuret Pep Total Protein Albumin 3.3 L Triglycerides Arterial Blood Glucose Arterial Blood Ionized Calcium Salicylates Acetaminophen
[2019-12-09] MEDS: FAMOTIDINE 20 MG TAB PO SCH ×2 (10:32→21:46)
[2019-12-09] MEDS: APIXABAN 5 MG TAB PO SCH ×2 (10:33→21:21)
[2019-12-09] MEDS: predniSONE 20 MG TAB PO SCH (10:33)
[2019-12-09] MEDS: VALPROIC ACID 250 MG/5 ML ORAL LIQD FEEDTUBE SCH ×2 (10:39→21:21)
[2019-12-09] MEDS: LISINOPRIL 5 MG TAB PO SCH (10:50)
[2019-12-09] MEDS: carvediloL 3.125 MG TAB PO SCH ×2 (10:50→21:20)
--- NOTE | 2019-12-09 11:27 | Progress Note ---
Assessment and Plan - Patient Problems (1) Acute pulmonary embolism Current Visit: Yes Status: Acute Plan to address problem: Continue Eliquis for oral anticoagulation in the setting of acute pulmonary embolism. Subjective Date of service: 12/09/19 Principal diagnosis: Acute respiratory failure with hypoxia, COPD/CHF exacerbation Interval history: Patient is comfortable, no cardiac complaints. Physical therapy is in progress. Objective Vital Signs Temp Pulse Pulse Resp Resp BP BP 12/09/19 09:00 98 F 96 H 20 100/62 12/09/19 08:29 12/09/19 07:45 90 20 12/09/19 04:01 70 12/09/19 03:24 98.3 F 73 17 110/75 12/08/19 23:02 97.8 F 82 19 104/67 12/08/19 22:00 12/08/19 21:09 92 H 101/55 12/08/19 20:35 90 20 12/08/19 19:47 98.7 F 92 H 17 101/55 12/08/19 17:00 88 12/08/19 16:23 94 H 20 12/08/19 15:27 98.0 F 85 20 99/68 12/08/19 15:00 12/08/19 12:23 94 H 20 Pulse Ox 12/09/19 09:00 100 12/09/19 08:29 96 12/09/19 07:45 12/09/19 04:01 12/09/19 03:24 98 12/08/19 23:02 94 12/08/19 22:00 97 12/08/19 21:09 12/08/19 20:35 92 12/08/19 19:47 97 12/08/19 17:00 12/08/19 16:23 12/08/19 15:27 91 12/08/19 15:00 96 12/08/19 12:23 - Physical Examination General: No Apparent Distress HEENT: Positive: PERRL Neck: Positive: neck supple Cardiac: Positive: Reg Rate and Rhythm Lungs: Positive: Decreased Breath Sounds Neuro: Positive: Grossly Intact Abdomen: Positive: Soft Skin: Positive: Clear Extremities: Absent: edema
--- NOTE | 2019-12-09 13:36 | Progress Note ---
Assessment and Plan Cultures: Blood culture pending SARS CoV2 PCR negative x2 Assessment: 49 years old female with morbid obesity, psychiatric disorder, admitted on 11/27/2019 due to a week history of worsening shortness of breath, cough, generalized weakness, malaise: #Severe sepsis: Present on admission with tachycardia, severe hypoxia likely due to edema #Strep pneumoniae pneumonia: Now resolved, status post treatment. #Acute hypoxemic respiratory failure: Initial O2 sat 69% #Elevated LFTs: ?hepatic congestion #Morbid obesity: Associated with poor cell counts. #Left lung pulmonary embolism: Management per primary and cardiology. Recommendations: -Leukocytosis may be secondary to high-dose steroids. -Procalcitonin is normal, remain off antibiotics at this time. Will sign off. Please call with questions. Rocky Cosby MD [facility] M: [phone] O: [phone] F: [phone] Subjective Date of service: 12/09/19 Principal diagnosis: Acute respiratory failure with hypoxia, COPD/CHF exacerbation Interval history: Afebrile, white count now improved to 15. Objective - Exam Narrative Exam: Physical Exam: Constitutional: Alert, cooperative. No acute distress Head, Ears, Nose: Normocephalic, atraumatic. External ears, nose normal Eyes: Conjunctivae/corneas clear. No icterus. No ptosis. Neck: Supple, no meningeal signs Oral: dentition fair, no thrush Cardiovascular: S1, S2 normal. Respiratory: Good air entry, clear to auscultation bilaterally GI: Soft, non-tender; bowel sounds normal. No peritoneal signs. Musculoskeletal: No pedal edema, no cyanosis. Skin: No rash or abscess Hem/Lymphatic: No palpable cervical or supraclavicular nodes. No lymphangitis Psych: Mood ok. Affect normal Neurological: Awake, alert, oriented. No gross abnormality - Constitutional Vitals: Vital Signs Temp Pulse Resp BP Pulse Ox 98.0 F 96 H 16 105/65 92 12/09/19 11:10 12/09/19 13:06 12/09/19 13:06 12/09/19 11:10 12/09/19 11:10 Temperature -Last 24 Hours Temperature 98.0 F Temperature 98 F Temperature 98.3 F Temperature 97.8 F Temperature 98.7 F Temperature 98.0 F - Labs CBC & Chem 7: 12/08/19 10:00 12/08/19 10:00
--- NOTE | 2019-12-09 17:16 | Progress Note ---
Assessment and Plan Assessment and plan: 49-year-old male with a medical history of psychiatric problems on valproic acid presented to the hospital on 11/26 with cough, weakness, malaise and fatigue. He was also having shortness of breath. Here in the ER, patient was noted to be hypoxic and he was placed on a BiPAP with slight improvement. Patient was subsequently admitted to the hospital with differentials of COPD exacerbation, acute exacerbation of congestive heart failure, possible Covid pneumonia. Patient was intubated for respiratory failure. Cardiology, pulmonology and ID on board. COVID-19 test performed showed negative results. 11/28 -11/29. Negative COVID-19 test. Remains intubated. Patient getting diuresed 11/30. Continue vent management as presented with clarification operator, wean as tolerated, obtain CTA chest to rule out PE as D-dimer was significant elevated. 12/01. Patient found to have PEM started on Lovenox. Patient was extubated to BiPAP. Patient was extubated on 12/03/2019 patient transferred to floor on 12/04/2019 patient continues to be in mild respiratory distress patient able to walk to the restroom slightly agitated has a new sacral area redness but no open wound see wound care notes. 12/06. His steroids have been tapered. He is still on Lasix 40 mg IV twice daily. Cardiology is following closely. Currently patient is on 60% of oxygen. Patient needs to use BiPAP at night. Plan to follow-up with pulmonology in the office for sleep study and pulmonary function test. Anticoagulation switch to Eliquis 5 mg twice daily. Procalcitonin ordered to rule out possible infection but increased WBC could be as a result of steroid administration. 12/07. Still on 60-65% oxygen. Pulmonology following. Procalcitonin negative. 12/08. Patient has refused to keep his oxygen on today. Had episode of agitation today as per RN. Patient remained calm during my encounter this p.m. patient seen without oxygen on advancing to keep his oxygen on. Discussed with patient's family [Courtney] Problems --Acute hypoxemic respiratory failure Current Visit: Yes Status: Acute Plan to address problem: Likely from severe COPD and CHF. Cardiology and pulmonology recommendations appreciated COVID-19 test negative Per ID coronavirus test to be repeated. COVID-19 test negative ---Hypercapnic respiratory failure Current Visit: Yes Status: Acute Qualifiers: Chronicity: acute on chronic Qualified Code(s): J96.22 - Acute and chronic respiratory failure with hypercapnia Plan to address problem: Duo nebs [id number] and every 3 as needed Low-dose prednisone Pulmonary recommendations appreciated ---Suspected 2019 novel coronavirus infection Current Visit: Yes Status: Acute Plan to address problem: Coronavirus PCR negative --- Acute pulmonary evaluation Current Visit: Yes Status: Acute Plan to address problem: Continue Eliquis twice daily Needs to have coagulation work-up as outpatient and heme follow-up ---Hypertension Current Visit: Yes Status: Chronic Qualifiers: Hypertension type: essential hypertension Qualified Code(s): I10 - Essential (primary) hypertension Plan to address problem: Continue antihypertensives ---Acute exacerbation of CHF (congestive heart failure) Current Visit: Yes Status: Acute Qualifiers: Heart failure type: combined systolic and diastolic Qualified Code(s): I50.43 - Acute on chronic combined systolic (congestive) and diastolic (congestive) heart failure Plan to address problem: Echocardiogram shows ejection fraction of 55 to 60% Lasix 40 mg twice daily ---Elevated LFTs Current Visit: Yes Status: Acute Plan to address problem: Passive congestion of the liver secondary to CHF Continue to monitor ---Coronary artery disease Current Visit: Yes Status: Chronic Qualifiers: Coronary Disease-Associated Artery/Lesion type: [place] artery [place] vs. transplanted heart: [place] heart Plan to address problem: On aspirin and probably but this is currently being held ? Cardiology following ---DVT prophylaxis Current Visit: Yes Status: Acute Plan to address problem: History Interval history: Patient seen and examined. Has no complaints. Patient had been getting agitated today and has refused to keep his oxygen on. He said that he feels better. Hospitalist Physical - Physical exam Narrative exam: VITAL SIGNS: Reviewed. GENERAL: Awake and alert and responds to questions HEAD: No signs of head trauma. EYES: Pupils are equal. Extraocular motions intact. EARS: Hearing grossly intact. MOUTH: Oropharynx is normal. NECK: No adenopathy, no JVD. CHEST: Improved bilateral wheeze CARDIAC: Regular rate and rhythm. S1 and S2, without murmurs, gallops, or rubs. VASCULAR: No Edema. Peripheral pulses normal and equal in all extremities. ABDOMEN: Soft, non tender and non distended. No rebound or guarding, and no masses palpated. Bowel Sounds normal. MUSCULOSKELETAL: Good range of motion of all major joints. Extremities without clubbing, cyanosis or edema. NEUROLOGIC EXAM: Alert and oriented x3. No focal neurologic deficits PSYCHIATRIC: Stable mood SKIN: No obvious lesions - Constitutional Vitals: Temp Pulse Resp BP Pulse Ox 97.9 F 98 H 16 112/72 95 12/09/19 15:04 12/09/19 16:55 12/09/19 16:55 12/09/19 15:04 12/09/19 16:56 HEART Score - HEART Score Age: 45-65 Risk factors: 1-2 risk factors Troponin: 1-3x normal limit - Critical Actions Critical Actions: 4-6 pts:12-16.6% risk of adverse cardiac event. Should be admitted Results - Labs CBC & Chem 7: 12/08/19 10:00 12/08/19 10:00 Labs: Laboratory Last Values WBC 14.8 K/mm3 (4.5-11.0) H 12/08/19 10:00 RBC 5.45 M/mm3 (3.65-5.03) H 12/08/19 10:00 Hgb 17.0 gm/dl (11.8-15.2) H 12/08/19 10:00 Hct 51.3 % (35.5-45.6) H 12/08/19 10:00 MCV 94 fl (84-94) 12/08/19 10:00 MCH 31 pg (28-32) 12/08/19 10:00 MCHC 33 % (32-34) 12/08/19 10:00 RDW 13.8 % (13.2-15.2) 12/08/19 10:00 Plt Count 158 K/mm3 (140-440) 12/08/19 10:00 Lymph % (Auto) 4.7 % (13.4-35.0) L 12/06/19 04:28 [place] % (Auto) 4.1 % (0.0-7.3) 12/06/19 04:28 Eos % (Auto) 0.0 % (0.0-4.3) 12/06/19 04:28 Baso % (Auto) 0.1 % (0.0-1.8) 12/06/19 04:28 Lymph # (Auto) 0.9 K/mm3 (1.2-5.4) L 12/06/19 04:28 [place] # (Auto) 0.8 K/mm3 (0.0-0.8) 12/06/19 04:28 Eos # (Auto) 0.0 K/mm3 (0.0-0.4) 12/06/19 04:28 Baso # (Auto) 0.0 K/mm3 (0.0-0.1) 12/06/19 04:28 Add Manual Diff Complete 12/08/19 10:00 Total Counted 100 12/08/19 10:00 Seg Neutrophils % Air [employer]ubmar[employer] 12/06/19 04:28 Seg Neuts % (Manual) 87.0 % (40.0-70.0) H 12/08/19 10:00 Band Neutrophils % 0 % 12/08/19 10:00 Lymphocytes % (Manual) 8.0 % (13.4-35.0) L 12/08/19 10:00 Reactive Lymphs % (Man) 0 % 12/08/19 10:00 Monocytes % (Manual) 4.0 % (0.0-7.3) 12/08/19 10:00 Eosinophils % (Manual) 1.0 % (0.0-4.3) 12/08/19 10:00 Basophils % (Manual) 0 % (0.0-1.8) 12/08/19 10:00 Metamyelocytes % 0 % 12/08/19 10:00 Myelocytes % 0 % 12/08/19 10:00 Promyelocytes % 0 % 12/08/19 10:00 Blast Cells % 0 % 12/08/19 10:00 Nucleated RBC % Not Reportable 12/08/19 10:00 Seg Neutrophils # 18.2 K/mm3 (1.8-7.7) H 12/06/19 04:28 Seg Neutrophils # Man 12.9 K/mm3 (1.8-7.7) H 12/08/19 10:00 Band Neutrophils # 0.0 K/mm3 12/08/19 10:00 Lymphocytes # (Manual) 1.2 K/mm3 (1.2-5.4) 12/08/19 10:00 Abs React Lymphs (Man) 0.0 K/mm3 12/08/19 10:00 Monocytes # (Manual) 0.6 K/mm3 (0.0-0.8) 12/08/19 10:00 Eosinophils # (Manual) 0.1 K/mm3 (0.0-0.4) 12/08/19 10:00 Basophils # (Manual) 0.0 K/mm3 (0.0-0.1) 12/08/19 10:00 Metamyelocytes # 0.0 K/mm3 12/08/19 10:00 Myelocytes # 0.0 K/mm3 12/08/19 10:00 Promyelocytes # 0.0 K/mm3 12/08/19 10:00 Blast Cells # 0.0 K/mm3 12/08/19 10:00 WBC Morphology Not Reportable 12/08/19 10:00 Hypersegmented Neuts Not Reportable 12/08/19 10:00 Hyposegmented Neuts Not Reportable 12/08/19 10:00 Hypogranular Neuts Not Reportable 12/08/19 10:00 Smudge Cells Not Reportable 12/08/19 10:00 Toxic Granulation Not Reportable 12/08/19 10:00 Toxic Vacuolation Not Reportable 12/08/19 10:00 Dohle Bodies Not Reportable 12/08/19 10:00 Pelger-Huet Anomaly Not Reportable 12/08/19 10:00 Malena Rods Not Reportable 12/08/19 10:00 Platelet Estimate Consistent w auto 12/08/19 10:00 Clumped Platelets Not Reportable 12/08/19 10:00 Plt Clumps, EDTA Not Reportable 12/08/19 10:00 Large Platelets Not Reportable 12/08/19 10:00 Giant Platelets Not Reportable 12/08/19 10:00 Platelet Satelliting Not Reportable 12/08/19 10:00 Plt Morphology Comment Not Reportable 12/08/19 10:00 RBC Morphology Normal 12/08/19 10:00 Dimorphic RBCs Not Reportable 12/08/19 10:00 Polychromasia Not Reportable 12/08/19 10:00 Hypochromasia Not Reportable 12/08/19 10:00 Poikilocytosis Not Reportable 12/08/19 10:00 Anisocytosis Not Reportable 12/08/19 10:00 Microcytosis Not Reportable 12/08/19 10:00 Macrocytosis Not Reportable 12/08/19 10:00 Spherocytes Not Reportable 12/08/19 10:00 Pappenheimer Bodies Not Reportable 12/08/19 10:00 Sickle Cells Not Reportable 12/08/19 10:00 Target Cells Not Reportable 12/08/19 10:00 Tear Drop Cells Not Reportable 12/08/19 10:00 Ovalocytes Not Reportable 12/08/19 10:00 Helmet Cells Not Reportable 12/08/19 10:00 [place] Bodies Not Reportable 12/08/19 10:00 [place] Rings Not Reportable 12/08/19 10:00 Dain Cells Not Reportable 12/08/19 10:00 Bite Cells Not Reportable 12/08/19 10:00 Crenated Cell Not Reportable 12/08/19 10:00 Elliptocytes Not Reportable 12/08/19 10:00 Acanthocytes (Spur) Not Reportable 12/08/19 10:00 Rouleaux Not Reportable 12/08/19 10:00 Hemoglobin C Crystals Not Reportable 12/08/19 10:00 Schistocytes Not Reportable 12/08/19 10:00 Malaria parasites Not Reportable 12/08/19 10:00 Rock Bodies Not Reportable 12/08/19 10:00 Hem Pathologist Commnt No 12/08/19 10:00 PT 14.6 Sec. (12.2-14.9) 11/27/19 12:08 INR 1.13 (0.87-1.13) 11/27/19 12:08 D-Dimer 2939.43 ng/mlDDU (0-234) H 12/01/19 14:29 ABG pH 7.458 pH Units (7.350-7.450) H 12/02/19 04:08 POC ABG pCO2 61.7 mmHg (32.0-48.0) H 11/30/19 04:40 ABG pCO2 60.1 mm Hg 12/02/19 04:08 POC ABG pO2 86.6 mmHg (83-108) 11/30/19 04:40 ABG pO2 66.2 mm Hg (80.0-90.0) L 12/02/19 04:08 POC ABG HCO3 39.2 11/30/19 04:40 ABG HCO3 41.6 mmol/L (20.0-26.0) H 12/02/19 04:08 ABG O2 Saturation 94.4 % (95.0-99.0) L 12/02/19 04:08 ABG O2 Content 20.5 (0.0-44) 12/02/19 04:08 POC ABG Base Excess 11.8 11/30/19 04:40 ABG Base Excess 14.5 mmol/L (-2.0-3.0) H 12/02/19 04:08 ABG Hemoglobin 15.8 gm/dl (14.0-18.0) 12/02/19 04:08 ABG Carboxyhemoglobin 1.5 % (0.0-5.0) 12/02/19 04:08 ABG Methemoglobin 0.6 % (0.0-1.5) 12/02/19 04:08 ABG Sodium 142.0 mmol/L (136.0-145.0) 11/30/19 04:40 ABG Potassium 4.6 mmol/L (3.40-4.50) H 11/30/19 04:40 ABG Chloride 97.0 mmol/L (98-107) L 11/30/19 04:40 ABG Glucose 167 mg/dL (65-95) H 11/30/19 04:40 Oxyhemoglobin 92.4 % (95.0-99.0) L 12/02/19 04:08 FiO2 40 % 12/02/19 04:08 Sodium 135 mmol/L (137-145) L D 12/08/19 10:00 Potassium 3.9 mmol/L (3.6-5.0) 12/08/19 10:00 Chloride 90.9 mmol/L (98-107) L 12/08/19 10:00 Carbon Dioxide 33 mmol/L (22-30) H 12/08/19 10:00 Anion Gap 15 mmol/L 12/08/19 10:00 BUN 59 mg/dL (9-20) H 12/08/19 10:00 Creatinine 1.0 mg/dL (0.8-1.3) 12/08/19 10:00 Estimated GFR > 60 ml/min 12/08/19 10:00 BUN/Creatinine Ratio 59 % 12/08/19 10:00 Glucose 123 mg/dL (75-100) H 12/08/19 10:00 POC Glucose 149 (70-105) H 12/04/19 17:42 Hemoglobin A1c 4.7 % (4-6) 11/28/19 04:15 Lactic Acid 1.30 mmol/L (0.7-2.0) 11/27/19 12:08 Calcium 8.5 mg/dL (8.4-10.2) 12/08/19 10:00 Magnesium 3.00 mg/dL (1.7-2.3) H 11/27/19 12:08 Ferritin 369.3 ng/mL (30.0-300.0) H 12/01/19 14:29 Total Bilirubin 1.10 mg/dL (0.1-1.2) 12/08/19 10:00 AST 31 units/L (5-40) 12/08/19 10:00 ALT 60 units/L (7-56) H 12/08/19 10:00 Alkaline Phosphatase 67 units/L (35-129) 12/08/19 10:00 Lactate Dehydrogenase 408 units/L (91-180) H 11/27/19 12:08 Total Creatine Kinase 83 units/L (55-170) 11/27/19 12:08 C-Reactive Protein 2.60 mg/dL (0.00-1.30) H 12/01/19 14:29 NT-Pro-B Natriuret Pep 41056 pg/mL (0-450) H 11/27/19 12:22 Total Protein 6.4 g/dL (6.3-8.2) 12/08/19 10:00 Albumin 3.3 g/dL (3.9-5) L 12/08/19 10:00 Albumin/Globulin Ratio 1.1 % 12/08/19 10:00 Triglycerides 216 mg/dL (2-149) H 11/30/19 04:30 Procalcitonin 0.06 ng/mL (<0.15) 12/07/19 05:42 Arterial Blood Glucose 167 mg/dL (65-95) H 11/30/19 04:40 Arterial Blood Ionized Calcium 4.4 mg/dL (4.6-5.3) L 11/30/19 04:40 Salicylates < 0.3 mg/dL (2.8-20.0) L 11/27/19 12:08 Acetaminophen 5.0 ug/mL (10.0-30.0) L 11/27/19 12:08 Valproic Acid 64.7 ug/mL (50-100) 11/27/19 12:08 Coronavirus (PCR) Negative (Negative) 12/08/19 07:08 - Diagnostic Impressions Diagnostic Impressions: Echocardiogram 11/27/19 19:28 Transthoracic Echocardiogram Indication: SOB BP: 124/71 HR: 75 Conclusions *EF 55-60% *TR JET INADEQUATE TO DETERMINE RVSP *RV ENLARGEMENT DYSFUNCTION Findings Left Ventricle: The left ventricular chamber size is normal. Global left ventricular systolic function is normal. The estimated ejection fraction is 55-60%. Abnormal left ventricular diastolic filling is observed, consistent with impaired relaxation. Left Atrium: The left atrial chamber size is normal. Right Ventricle: The right ventricle is mildly dilated. The right ventricular global systolic function is moderately reduced. Right Atrium: The right atrial cavity size is normal. Aortic Valve: The aortic valve leaflets are mildly thickened. There is no evidence of aortic regurgitation. Mitral Valve: The mitral valve leaflets appear normal. There is no evidence of mitral regurgitation. Tricuspid Valve: There is no evidence of tricuspid valve regurgitation. Pulmonic Valve: The pulmonic valve is not well visualized. Pericardium: There is no pericardial effusion. Aorta: The aorta appears normal. Measurements Chambers 2D Name Value Normal Range IVSd (2D) 1.07 cm (0.6 - 1.1) LVPWd (2D) 0.96 cm (0.6 - 1.1) LVIDd (2D) 4.93 cm (3.7 - 5.6) LVIDs (2D) 4.08 cm (2 - 3.8) LV FS (2D) 17.21 % - Ao root diameter (2D) 3.72 cm (2 - 3.7) Volumes/Mass Name Value Normal Range LA ESV SP 4CH (A/L) 20.87 ml - LA ESV SP 2CH (A/L) 41 ml - LA ESV BP (A/L) 30.22 ml - LA ESV BP (A/L) index 14.96 ml/m2 - LA ESV SP 4CH (MOD) 21.34 ml - LA ESV SP 2CH (MOD) 40.04 ml - LA ESV BP (MOD) 29.33 ml - LA ESV BP (MOD) index 14.52 ml/m2 - Diastolic/Systolic Function Name Value Normal Range MV E-wave Vmax 0.48 m/sec - MV deceleration time 268.38 msec - MV A-wave Vmax 0.56 m/sec - MV E:A ratio 0.86 ratio - Aortic Valve Name Value Normal Range AV Vmax 1.22 m/sec - AV VTI 22.32 cm - AV peak gradient 5.99 mmHg - AV mean gradient 3.69 mmHg - LVOT diameter 2.65 cm - LVOT Vmax 0.73 m/sec - LVOT VTI 13.52 cm - LVOT peak gradient 2.13 mmHg - LVOT mean gradient 1.22 mmHg - SV LVOT 74.61 ml - AGNES (continuity Vmax) 3.29 cm2 - AGNES (continuity VTI) 3.34 cm2 - Tricuspid Valve Name Value Normal Range RAP 3 mmHg - IVC diameter 2.23 cm (1.2 - 2.3) Pulmonic Valve/Qp:Qs Name Value Normal Range PV acceleration time 98.95 msec - Cohen/IV: Voiding Method Urinal IV Catheter Type [Right INT / Saline Lock Antecubital] IV Catheter Type [Left Wrist] INT / Saline Lock IV Catheter Type [Right Wrist] INT / Saline Lock IV Catheter Type [Left INT / Saline Lock Antecubital] IV Catheter Type [Right Hand] INT / Saline Lock Active Medications - Current Medications Current Medications: Generic Name Dose Route Start Last Admin Trade Name Freq PRN Reason Stop Dose Admin Acetaminophen 650 mg 11/27/19 19:22 11/29/19 23:20 Tylenol PO 650 mg Q4H PRN Administration Pain MILD(1-3)/Fever >100.5/DIXON Albuterol/Ipratropium 1 ampul 11/27/19 19:24 11/28/19 02:00 Duoneb *Not For Prn Use* IH 1 ampul Q3H PRN Administration Wheezing Albuterol/Ipratropium 1 ampul 11/27/19 20:00 12/09/19 16:55 Duoneb *Not For Prn Use* IH 1 ampul QIDRT AYAKA Administration Lipase/Protease/Amylase 1 each 11/29/19 12:44 [place] 10,500 Unit FEEDTUBE PRN PRN For Clogged Feeding Tube Apixaban 5 mg 12/07/19 22:00 12/09/19 10:33 Eliquis PO 5 mg Q12HR AYAKA Administration Protocol Budesonide 0.5 mg 12/06/19 10:00 12/09/19 07:45 Pulmicort IH 0.5 mg Q12HRT AYAKA Administration Carvedilol 3.125 mg 11/30/19 22:00 12/09/19 10:50 Coreg PO Not Given BID AYAKA Famotidine 20 mg 11/29/19 10:00 12/09/19 10:32 Pepcid PO 20 mg BID AYAKA Administration Furosemide 40 mg 12/07/19 08:00 12/09/19 05:10 Lasix IV 40 mg 0600 AYAKA Administration Lisinopril 2.5 mg 12/01/19 10:00 12/09/19 10:50 Zestril PO Not Given QDAY AYAKA Morphine Sulfate 2 mg 11/27/19 19:22 Morphine IV Q4H PRN Pain, Moderate (4-6) Olanzapine 20 mg 11/27/19 22:00 12/08/19 21:10 Zyprexa PO 20 mg HS AYAKA Administration Olanzapine 10 mg 11/30/19 11:00 12/09/19 10:32 Zyprexa PO 10 mg DAILY AYAKA Administration Ondansetron HCl 4 mg 11/27/19 19:22 Zofran IV Q3H PRN Nausea And Vomiting Prednisone 60 mg 12/07/19 10:00 12/09/19 10:33 Deltasone PO 60 mg QDAY AYAKA Administration Simple Syrup 15 ml 11/29/19 12:44 Simple Syrup FEEDTUBE PRN PRN Hypoglycemia Simple Syrup 30 ml 11/29/19 12:44 Simple Syrup FEEDTUBE PRN PRN Hypoglycemia Sodium Bicarbonate 325 mg 11/29/19 12:44 Sodium Bicarbonate FEEDTUBE PRN PRN For Clogged Feeding Tube Sodium Chloride 10 ml 11/27/19 22:00 12/09/19 10:33 Sodium Chloride Flush Syringe 10 Ml IV 10 ml BID AYAKA Administration Sodium Chloride 10 ml 11/27/19 19:22 12/04/19 05:50 Sodium Chloride Flush Syringe 10 Ml IV 10 ml PRN PRN Administration LINE FLUSH Valproic Acid 250 mg 11/29/19 10:00 12/09/19 10:39 Depakene Liq FEEDTUBE 250 mg BID AYAKA Administration Nutrition/Malnutrition Assess - Dietary Evaluation Nutrition/Malnutrition Findings: Nutrition Notes Start: 11/29/19 12:28 Freq: Status: Active Protocol: Document 12/07/19 13:36 TAY (Rec: 12/07/19 13:41 TAY [id number]) Co-Sign 12/07/19 13:36 LM Nutrition Notes Initial or Follow up Reassessment Current Diagnosis Coronary Artery Disease, Hypertension,Heart Failure Other Pertinent Diagnosis Acute respiratory failure Current Diet Pureed cardiac Labs/Tests BUN 74 Pertinent Medications Reviewed Height 6 ft 1 in Weight 154.221 kg [place] Body Weight (kg) 83.63 BMI 44.9 Weight Status Morbidly Obese Subjective/Other Information F/U for diet advancement. Pt receiving pureed cardiac diet. Per RN, pt consuming 100%. Percent of energy/protein needs met: 90%/61% Burn Absent Trauma Absent GI Symptoms None Current % PO Negligible Minimum of two criteria No physical signs of malnutrition #1 Nutrition Diagnosis Inadequate oral intake As Evidenced by Signs and Symptoms Pt consuming 100% pureed diet Diagnosis Progress(for reassessment Improved documentation) Is patient on ventilator? No Is Patient Ambulatory and/or Out of Bed No REE-([facility]-confined to bed) 2962.056 Kcal/Kg value to use for calculation 13 Approximate Energy Requirements Using 2005 kcal/Kg Calculation Used for Recommendations Kcal/kg Additional Notes Pro: 125-155 g (.8-1.0 g/kg ABW) Fluid: 1 ml/kcal Nutrition Intervention Change Diet Order: Advance diet when medically feasible Goal #1 Diet advancement when medically feasible. Goal #2 Meet at least 75% energy and protein needs Anticipated Discharge Needs: Cardiac diet Follow-Up By: 12/14/19 Additional Comments F/U for intakes and diet advancement
[2019-12-10] MEDS: FUROSEMIDE 40 MG/4 ML INJ IV SCH (05:11)
[2019-12-10] MEDS: IPRATROPIUM/ALBUTEROL SULFATE 3 ML AMPUL.NEB IH SCH ×4 (07:47→20:29)
[2019-12-10] MEDS: BUDESONIDE 0.5 MG/2 ML NEBU IH SCH ×2 (07:47→20:30)
[2019-12-10] MEDS: FAMOTIDINE 20 MG TAB PO SCH ×2 (09:32→21:19)
[2019-12-10] MEDS: predniSONE 20 MG TAB PO SCH (09:33)
[2019-12-10] MEDS: APIXABAN 5 MG TAB PO SCH ×2 (09:33→21:19)
[2019-12-10] MEDS: carvediloL 3.125 MG TAB PO SCH ×2 (09:34→21:20)
[2019-12-10] MEDS: VALPROIC ACID 250 MG/5 ML ORAL LIQD FEEDTUBE SCH ×2 (09:38→21:19)
[2019-12-10] MEDS: LISINOPRIL 5 MG TAB PO SCH (09:38)
--- NOTE | 2019-12-10 10:02 | Progress Note ---
Assessment and Plan Acute PE -initiated on Eliquis Acute respiratory failure extubated 12/03/2019 negative for COVID-19 Echo this presentation reports mild dilated RV, normal LVEF 55-60% Hx of COPD Hx Psychiatric disorder Conservative cardiac management. Subjective Date of service: 12/10/19 Principal diagnosis: Acute respiratory failure with hypoxia, COPD/CHF exacerbation Interval history: Patient remains on high flow oxygen. No cardiac events reported overnight. Objective Vital Signs Temp Pulse Pulse Resp Resp BP BP 12/10/19 07:47 92 H 22 12/10/19 07:33 96.4 F L 81 18 105/72 12/10/19 04:17 97.9 F 79 16 99/56 12/10/19 03:52 99/66 12/09/19 23:16 97.6 F 83 18 103/66 12/09/19 22:05 90 16 12/09/19 22:00 12/09/19 21:20 92 H 96/56 12/09/19 19:28 97.5 F L 92 H 16 96/56 12/09/19 16:56 12/09/19 16:55 98 H 16 12/09/19 15:04 97.9 F 84 20 112/72 12/09/19 13:06 96 H 16 12/09/19 11:10 98.0 F 83 105/65 Pulse Ox 12/10/19 07:47 97 12/10/19 07:33 96 12/10/19 04:17 96 12/10/19 03:52 12/09/19 23:16 93 12/09/19 22:05 12/09/19 22:00 92 12/09/19 21:20 12/09/19 19:28 91 12/09/19 16:56 95 12/09/19 16:55 12/09/19 15:04 89 12/09/19 13:06 12/09/19 11:10 92 - Physical Examination General: No Apparent Distress HEENT: Positive: PERRL Neck: Positive: neck supple Cardiac: Positive: Reg Rate and Rhythm Lungs: Positive: Decreased Breath Sounds Neuro: Positive: Grossly Intact Extremities: Absent: edema
--- NOTE | 2019-12-10 12:06 | Consultation ---
History of Present Illness - Reason for Consult Consult date: 12/10/19 Reason for consult: psychosis - History of Present Psychiatric Illness Bacilio de la vega is a 49y/o male patient who presented to the ER for shortness of breath. During my interview with the patient, he was lying in bed watching t.v. He was calm and cooperative. He is a poor historian. He is a/o x 2. He says he has a history of "bipolar." The patient could not remember much about why he was admitted into the hospital. He says "I think I wasn't feeling well." He says "I feel okay, I'm just thirsty." He denies SI/HI or ever having an attempt. The patient also denies hallucinations of any kind. He denies any illicit drug use or alcohol but states he smokes a "pack of cigarets a day." He states he does not want a nicotine patch. PAST PSYCHIATRIC HISTORY: Diagnoses: Bipolar Suicide attempts or Self-harm behavior: denies Prior psychiatric hospitalizations: Denies Substance Abuse history: Nicotine Previous psychiatric medications tried: Could not recall Outpatient treatment: Denies PAST MEDICAL HISTORY: None reported Family Psychiatric History: None reported or documented SOCIAL HISTORY Marital Status: Single Living Arrangements: caregiver Employment Status: disabled Access to guns/weapons: None reported Education: high school History of Abuse: Denies Legal History: Denies REVIEW OF SYSTEMS Constitutional: Negative for weight loss ENT: Negative for stridor Respiratory: Negative for cough or hemoptysis All other systems reviewed and are negative MENTAL STATUS EXAMINATION General Appearance and Behavior: Age appropriate, good hygiene, wearing appropriate clothes, fair eye contact Cooperation: Participating/engaged Psychomotor Behavior: Psychomotor normal Mood: "okay." Affect and affective range: congruent with stated mood Thought Process: goal directed Thought Content: denies hallucinations, or negative thoughts Speech: Normal rate and tone Intellectual Functioning: Average Suicidal Ideation: SI Homicidal Ideation: Denies HI Hallucinations: Denies Delusions: None elicited Insight and Judgment: Limited insight and judgment Memory: Impaired Orientation: Alert, oriented Assessment and Plan (1)Acute Psychosis Current Visit: Yes Status: Acute RECOMMENDATIONS MEDICATIONS: No meds prescribed at this time. Risks, benefits and alternatives of medications discussed with the patient, questions answered and consent obtained from patient. PSYCHOTHERAPY: Supportive psychotherapy provided MEDICAL: Per primary team DELIRIUM PRECAUTIONS: Please re-orient patient frequently, keep lights on during the day, and minimize benzodiazepines and opiates as these medications could worsen patient's confusion. INDEPENDENT BEAUTY CONSULTANT: Defer to primary DISPOSITION: Do not recommend acute inpatient psychiatric treatment at this time. The patient understands that if thoughts of self harm or fear of endangerment are to arise she is to seek immediate assistance including the crisis hotline, 911/ER. The terrazzo helper is to give the patient resources for outpatient psychiatry, cognitive behavioral therapy. The patent is to follow up with outpatient psych, and primary in 7 to 14 days upon discharge. Will sign off. Thank you for the consult. Please contact with any questions and/or concerns. Medications and Allergies Allergies Allergy/AdvReac Type Severity Reaction Status Date / Time No Known Allergies Allergy Unverified 11/27/19 11:24 Home Medications Medication Instructions Recorded Confirmed Last Taken Type Depakote ER 250 mg PO ONCE 11/27/19 12/07/19 12/07/19 19:31 History Vistaril 25 mg PO TID 11/27/19 11/27/19 Unknown History ZyPREXA 10 mg PO DAILY 11/27/19 11/27/19 Unknown History ZyPREXA 20 mg PO HS 11/27/19 11/27/19 Unknown History Active Meds: Active Medications Acetaminophen (Tylenol) 650 mg PO Q4H PRN PRN Reason: Pain MILD(1-3)/Fever >100.5/DIXON Last Admin: 11/29/19 23:20 Dose: 650 mg Documented by: Albuterol/Ipratropium (Duoneb *Not For Prn Use*) 1 ampul IH Q3H PRN PRN Reason: Wheezing Last Admin: 11/28/19 02:00 Dose: 1 ampul Documented by: Albuterol/Ipratropium (Duoneb *Not For Prn Use*) 1 ampul IH QIDRT AYAKA Last Admin: 12/10/19 11:48 Dose: 1 ampul Documented by: Lipase/Protease/Amylase ([place] 10,500 Unit) 1 each FEEDTUBE PRN PRN PRN Reason: For Clogged Feeding Tube Apixaban (Eliquis) 5 mg PO Q12HR [facility]; Protocol Last Admin: 12/10/19 09:33 Dose: 5 mg Documented by: Budesonide (Pulmicort) 0.5 mg IH Q12HRT [facility] Last Admin: 12/10/19 07:47 Dose: 0.5 mg Documented by: Carvedilol (Coreg) 3.125 mg PO BID [facility] Last Admin: 12/10/19 09:34 Dose: 3.125 mg Documented by: Famotidine (Pepcid) 20 mg PO BID [facility] Last Admin: 12/10/19 09:32 Dose: 20 mg Documented by: Furosemide (Lasix) 40 mg IV 0600 [facility] Last Admin: 12/10/19 05:11 Dose: Not Given Documented by: Lisinopril (Zestril) 2.5 mg PO QDAY [facility] Last Admin: 12/10/19 09:38 Dose: Not Given Documented by: Morphine Sulfate (Morphine) 2 mg IV Q4H PRN PRN Reason: Pain, Moderate (4-6) Last Admin: 12/09/19 21:22 Dose: 2 mg Documented by: Olanzapine (Zyprexa) 20 mg PO HS [facility] Last Admin: 12/09/19 21:21 Dose: 20 mg Documented by: Olanzapine (Zyprexa) 10 mg PO DAILY [facility] Last Admin: 12/10/19 09:36 Dose: 10 mg Documented by: Ondansetron HCl (Zofran) 4 mg IV Q3H PRN PRN Reason: Nausea And Vomiting Prednisone (Deltasone) 60 mg PO QDAY [facility] Last Admin: 12/10/19 09:33 Dose: 60 mg Documented by: Simple Syrup (Simple Syrup) 15 ml FEEDTUBE PRN PRN PRN Reason: Hypoglycemia Simple Syrup (Simple Syrup) 30 ml FEEDTUBE PRN PRN PRN Reason: Hypoglycemia Sodium Bicarbonate (Sodium Bicarbonate) 325 mg FEEDTUBE PRN PRN PRN Reason: For Clogged Feeding Tube Sodium Chloride (Sodium Chloride Flush Syringe 10 Ml) 10 ml IV BID [facility] Last Admin: 12/10/19 09:35 Dose: 10 ml Documented by: Sodium Chloride (Sodium Chloride Flush Syringe 10 Ml) 10 ml IV PRN PRN PRN Reason: LINE FLUSH Last Admin: 12/04/19 05:50 Dose: 10 ml Documented by: Valproic Acid (Depakene Liq) 250 mg FEEDTUBE BID [facility] Last Admin: 12/10/19 09:38 Dose: 250 mg Documented by: Mental Status Exam - Vital signs Last Vital Signs Temp 97.9 F 12/10/19 11:16 Pulse 88 12/10/19 11:50 Resp 20 12/10/19 11:50 BP 95/57 12/10/19 11:16 Pulse Ox 89 12/10/19 11:16 Results Result Diagrams: 12/08/19 10:00 12/08/19 10:00 All other labs normal.
--- NOTE | 2019-12-10 13:18 | Progress Note ---
Assessment and Plan Assessment and plan: 49-year-old male with a medical history of psychiatric problems on valproic acid presented to the hospital on 11/26 with cough, weakness, malaise and fatigue. He was also having shortness of breath. Here in the ER, patient was noted to be hypoxic and he was placed on a BiPAP with slight improvement. Patient was subsequently admitted to the hospital with differentials of COPD exacerbation, acute exacerbation of congestive heart failure, possible Covid pneumonia. Patient was intubated for respiratory failure. Cardiology, pulmonology and ID on board. COVID-19 test performed showed negative results. 11/28 -11/29. Negative COVID-19 test. Remains intubated. Patient getting diuresed 11/30. 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 12/01. Patient found to have PEM started on Lovenox. Patient was extubated to BiPAP. Patient was extubated on 12/03/2019 patient transferred to floor on 12/04/2019 patient continues to be in mild respiratory distress patient able to walk to the restroom slightly agitated has a new sacral area redness but no open wound see wound care notes. 12/06. His steroids have been tapered. He is still on Lasix 40 mg IV twice daily. Cardiology is following closely. Currently patient is on 60% of oxygen. Patient needs to use BiPAP at night. Plan to follow-up with pulmonology in the office for sleep study and pulmonary function test. Anticoagulation switch to Eliquis 5 mg twice daily. Procalcitonin ordered to rule out possible infection but increased WBC could be as a result of steroid administration. 12/07. Still on 60-65% oxygen. Pulmonology following. Procalcitonin negative. 12/08. Patient has refused to keep his oxygen on today. Had episode of agitation today as per RN. Patient remained calm during my encounter this p.m. patient seen without oxygen on advancing to keep his oxygen on. Discussed with patient's family [Courtney] 12/09. He is calm today - still refuses oxygen but his oxygen has been holding above 90 in RA> See walk test. Has a history of psych issues. Has been seen by psych. He will need to go to [facility] when accepted. Problems --Sepsis POA Current Visit: Yes Status: Resolved Plan to address problem: --Acute hypoxemic respiratory failure Current Visit: Yes Status: Acute Plan to address problem: Likely from severe COPD and CHF. Cardiology and pulmonology recommendations appreciated COVID-19 test negative Per ID coronavirus test to be repeated. COVID-19 test negative ---Hypercapnic respiratory failure Current Visit: Yes Status: Acute Qualifiers: Chronicity: acute on chronic Qualified Code(s): J96.22 - Acute and chronic respiratory failure with hypercapnia Plan to address problem: Duo nebs [id number]-natrx and every 3 as needed Low-dose prednisone Pulmonary recommendations appreciated ---Suspected 2019 novel coronavirus infection Current Visit: Yes Status: Acute Plan to address problem: Coronavirus PCR negative --- Acute pulmonary evaluation Current Visit: Yes Status: Acute Plan to address problem: Continue Eliquis twice daily Needs to have coagulation work-up as outpatient and heme follow-up ---Hypertension Current Visit: Yes Status: Chronic Qualifiers: Hypertension type: essential hypertension Qualified Code(s): I10 - Essential (primary) hypertension Plan to address problem: Continue antihypertensives ---Acute exacerbation of CHF (congestive heart failure) Current Visit: Yes Status: Acute Qualifiers: Heart failure type: combined systolic and diastolic Qualified Code(s): I50.43 - Acute on chronic combined systolic (congestive) and diastolic (congestive) heart failure Plan to address problem: Echocardiogram shows ejection fraction of 55 to 60% Lasix 40 mg twice daily ---Elevated LFTs Current Visit: Yes Status: Acute Plan to address problem: Passive congestion of the liver secondary to CHF Continue to monitor ---Coronary artery disease Current Visit: Yes Status: Chronic Qualifiers: Coronary Disease-Associated Artery/Lesion type: [place] artery [place] vs. transplanted heart: [place] heart Plan to address problem: On aspirin and probably but this is currently being held ? Cardiology following ---DVT prophylaxis Current Visit: Yes Status: Acute Plan to address problem: History Interval history: Patient seen and examined. Has no complaints. Patient had been getting agitated today and has refused to keep his oxygen on. He said that he feels better. Hospitalist Physical - Constitutional Vitals: Temp Pulse Resp BP Pulse Ox 97.9 F 90 18 95/57 89 12/10/19 11:16 12/10/19 11:50 12/10/19 11:50 12/10/19 11:16 12/10/19 11:16 General appearance: Present: no acute distress, well-nourished HEART Score - HEART Score Age: 45-65 Risk factors: 1-2 risk factors Troponin: 1-3x normal limit - Critical Actions Critical Actions: 4-6 pts:12-16.6% risk of adverse cardiac event. Should be admitted Results - Labs CBC & Chem 7: 12/08/19 10:00 12/08/19 10:00 Labs: Laboratory Last Values WBC 14.8 K/mm3 (4.5-11.0) H 12/08/19 10:00 RBC 5.45 M/mm3 (3.65-5.03) H 12/08/19 10:00 Hgb 17.0 gm/dl (11.8-15.2) H 12/08/19 10:00 Hct 51.3 % (35.5-45.6) H 12/08/19 10:00 MCV 94 fl (84-94) 12/08/19 10:00 MCH 31 pg (28-32) 12/08/19 10:00 MCHC 33 % (32-34) 12/08/19 10:00 RDW 13.8 % (13.2-15.2) 12/08/19 10:00 Plt Count 158 K/mm3 (140-440) 12/08/19 10:00 Lymph % (Auto) 4.7 % (13.4-35.0) L 12/06/19 04:28 Elbert % (Auto) 4.1 % (0.0-7.3) 12/06/19 04:28 Eos % (Auto) 0.0 % (0.0-4.3) 12/06/19 04:28 Baso % (Auto) 0.1 % (0.0-1.8) 12/06/19 04:28 Lymph # (Auto) 0.9 K/mm3 (1.2-5.4) L 12/06/19 04:28 Elbert # (Auto) 0.8 K/mm3 (0.0-0.8) 12/06/19 04:28 Eos # (Auto) 0.0 K/mm3 (0.0-0.4) 12/06/19 04:28 Baso # (Auto) 0.0 K/mm3 (0.0-0.1) 12/06/19 04:28 Add Manual Diff Complete 12/08/19 10:00 Total Counted 100 12/08/19 10:00 Seg Neutrophils % Burn Table Operator 12/06/19 04:28 Seg Neuts % (Manual) 87.0 % (40.0-70.0) H 12/08/19 10:00 Band Neutrophils % 0 % 12/08/19 10:00 Lymphocytes % (Manual) 8.0 % (13.4-35.0) L 12/08/19 10:00 Reactive Lymphs % (Man) 0 % 12/08/19 10:00 Monocytes % (Manual) 4.0 % (0.0-7.3) 12/08/19 10:00 Eosinophils % (Manual) 1.0 % (0.0-4.3) 12/08/19 10:00 Basophils % (Manual) 0 % (0.0-1.8) 12/08/19 10:00 Metamyelocytes % 0 % 12/08/19 10:00 Myelocytes % 0 % 12/08/19 10:00 Promyelocytes % 0 % 12/08/19 10:00 Blast Cells % 0 % 12/08/19 10:00 Nucleated RBC % Not Reportable 12/08/19 10:00 Seg Neutrophils # 18.2 K/mm3 (1.8-7.7) H 12/06/19 04:28 Seg Neutrophils # Man 12.9 K/mm3 (1.8-7.7) H 12/08/19 10:00 Band Neutrophils # 0.0 K/mm3 12/08/19 10:00 Lymphocytes # (Manual) 1.2 K/mm3 (1.2-5.4) 12/08/19 10:00 Abs React Lymphs (Man) 0.0 K/mm3 12/08/19 10:00 Monocytes # (Manual) 0.6 K/mm3 (0.0-0.8) 12/08/19 10:00 Eosinophils # (Manual) 0.1 K/mm3 (0.0-0.4) 12/08/19 10:00 Basophils # (Manual) 0.0 K/mm3 (0.0-0.1) 12/08/19 10:00 Metamyelocytes # 0.0 K/mm3 12/08/19 10:00 Myelocytes # 0.0 K/mm3 12/08/19 10:00 Promyelocytes # 0.0 K/mm3 12/08/19 10:00 Blast Cells # 0.0 K/mm3 12/08/19 10:00 WBC Morphology Not Reportable 12/08/19 10:00 Hypersegmented Neuts Not Reportable 12/08/19 10:00 Hyposegmented Neuts Not Reportable 12/08/19 10:00 Hypogranular Neuts Not Reportable 12/08/19 10:00 Smudge Cells Not Reportable 12/08/19 10:00 Toxic Granulation Not Reportable 12/08/19 10:00 Toxic Vacuolation Not Reportable 12/08/19 10:00 Dohle Bodies Not Reportable 12/08/19 10:00 Pelger-Huet Anomaly Not Reportable 12/08/19 10:00 Malena Rods Not Reportable 12/08/19 10:00 Platelet Estimate Consistent w auto 12/08/19 10:00 Clumped Platelets Not Reportable 12/08/19 10:00 Plt Clumps, EDTA Not Reportable 12/08/19 10:00 Large Platelets Not Reportable 12/08/19 10:00 Giant Platelets Not Reportable 12/08/19 10:00 Platelet Satelliting Not Reportable 12/08/19 10:00 Plt Morphology Comment Not Reportable 12/08/19 10:00 RBC Morphology Normal 12/08/19 10:00 Dimorphic RBCs Not Reportable 12/08/19 10:00 Polychromasia Not Reportable 12/08/19 10:00 Hypochromasia Not Reportable 12/08/19 10:00 Poikilocytosis Not Reportable 12/08/19 10:00 Anisocytosis Not Reportable 12/08/19 10:00 Microcytosis Not Reportable 12/08/19 10:00 Macrocytosis Not Reportable 12/08/19 10:00 Spherocytes Not Reportable 12/08/19 10:00 Pappenheimer Bodies Not Reportable 12/08/19 10:00 Sickle Cells Not Reportable 12/08/19 10:00 Target Cells Not Reportable 12/08/19 10:00 Tear Drop Cells Not Reportable 12/08/19 10:00 Ovalocytes Not Reportable 12/08/19 10:00 Helmet Cells Not Reportable 12/08/19 10:00 [place] Bodies Not Reportable 12/08/19 10:00 Bagley Rings Not Reportable 12/08/19 10:00 Dain Cells Not Reportable 12/08/19 10:00 Bite Cells Not Reportable 12/08/19 10:00 Crenated Cell Not Reportable 12/08/19 10:00 Elliptocytes Not Reportable 12/08/19 10:00 Acanthocytes (Spur) Not Reportable 12/08/19 10:00 Rouleaux Not Reportable 12/08/19 10:00 Hemoglobin C Crystals Not Reportable 12/08/19 10:00 Schistocytes Not Reportable 12/08/19 10:00 Malaria parasites Not Reportable 12/08/19 10:00 Rock Bodies Not Reportable 12/08/19 10:00 Hem Pathologist Commnt No 12/08/19 10:00 PT 14.6 Sec. (12.2-14.9) 11/27/19 12:08 INR 1.13 (0.87-1.13) 11/27/19 12:08 D-Dimer 2939.43 ng/mlDDU (0-234) H 12/01/19 14:29 ABG pH 7.458 pH Units (7.350-7.450) H 12/02/19 04:08 POC ABG pCO2 61.7 mmHg (32.0-48.0) H 11/30/19 04:40 ABG pCO2 60.1 mm Hg 12/02/19 04:08 POC ABG pO2 86.6 mmHg (83-108) 11/30/19 04:40 ABG pO2 66.2 mm Hg (80.0-90.0) L 12/02/19 04:08 POC ABG HCO3 39.2 11/30/19 04:40 ABG HCO3 41.6 mmol/L (20.0-26.0) H 12/02/19 04:08 ABG O2 Saturation 94.4 % (95.0-99.0) L 12/02/19 04:08 ABG O2 Content 20.5 (0.0-44) 12/02/19 04:08 POC ABG Base Excess 11.8 11/30/19 04:40 ABG Base Excess 14.5 mmol/L (-2.0-3.0) H 12/02/19 04:08 ABG Hemoglobin 15.8 gm/dl (14.0-18.0) 12/02/19 04:08 ABG Carboxyhemoglobin 1.5 % (0.0-5.0) 12/02/19 04:08 ABG Methemoglobin 0.6 % (0.0-1.5) 12/02/19 04:08 ABG Sodium 142.0 mmol/L (136.0-145.0) 11/30/19 04:40 ABG Potassium 4.6 mmol/L (3.40-4.50) H 11/30/19 04:40 ABG Chloride 97.0 mmol/L (98-107) L 11/30/19 04:40 ABG Glucose 167 mg/dL (65-95) H 11/30/19 04:40 Oxyhemoglobin 92.4 % (95.0-99.0) L 12/02/19 04:08 FiO2 40 % 12/02/19 04:08 Sodium 135 mmol/L (137-145) L D 12/08/19 10:00 Potassium 3.9 mmol/L (3.6-5.0) 12/08/19 10:00 Chloride 90.9 mmol/L (98-107) L 12/08/19 10:00 Carbon Dioxide 33 mmol/L (22-30) H 12/08/19 10:00 Anion Gap 15 mmol/L 12/08/19 10:00 BUN 59 mg/dL (9-20) H 12/08/19 10:00 Creatinine 1.0 mg/dL (0.8-1.3) 12/08/19 10:00 Estimated GFR > 60 ml/min 12/08/19 10:00 BUN/Creatinine Ratio 59 % 12/08/19 10:00 Glucose 123 mg/dL (75-100) H 12/08/19 10:00 POC Glucose 149 (70-105) H 12/04/19 17:42 Hemoglobin A1c 4.7 % (4-6) 11/28/19 04:15 Lactic Acid 1.30 mmol/L (0.7-2.0) 11/27/19 12:08 Calcium 8.5 mg/dL (8.4-10.2) 12/08/19 10:00 Magnesium 3.00 mg/dL (1.7-2.3) H 11/27/19 12:08 Ferritin 369.3 ng/mL (30.0-300.0) H 12/01/19 14:29 Total Bilirubin 1.10 mg/dL (0.1-1.2) 12/08/19 10:00 AST 31 units/L (5-40) 12/08/19 10:00 ALT 60 units/L (7-56) H 12/08/19 10:00 Alkaline Phosphatase 67 units/L (35-129) 12/08/19 10:00 Lactate Dehydrogenase 408 units/L (91-180) H 11/27/19 12:08 Total Creatine Kinase 83 units/L (55-170) 11/27/19 12:08 C-Reactive Protein 2.60 mg/dL (0.00-1.30) H 12/01/19 14:29 NT-Pro-B Natriuret Pep 74980 pg/mL (0-450) H 11/27/19 12:22 Total Protein 6.4 g/dL (6.3-8.2) 12/08/19 10:00 Albumin 3.3 g/dL (3.9-5) L 12/08/19 10:00 Albumin/Globulin Ratio 1.1 % 12/08/19 10:00 Triglycerides 216 mg/dL (2-149) H 11/30/19 04:30 Procalcitonin 0.06 ng/mL (<0.15) 12/07/19 05:42 Arterial Blood Glucose 167 mg/dL (65-95) H 11/30/19 04:40 Arterial Blood Ionized Calcium 4.4 mg/dL (4.6-5.3) L 11/30/19 04:40 Salicylates < 0.3 mg/dL (2.8-20.0) L 11/27/19 12:08 Acetaminophen 5.0 ug/mL (10.0-30.0) L 11/27/19 12:08 Valproic Acid 64.7 ug/mL (50-100) 11/27/19 12:08 Coronavirus (PCR) Negative (Negative) 12/08/19 07:08 - Diagnostic Impressions Diagnostic Impressions: Echocardiogram 11/27/19 19:28 Transthoracic Echocardiogram Indication: SOB BP: 124/71 HR: 75 Conclusions *EF 55-60% *TR JET INADEQUATE TO DETERMINE RVSP *RV ENLARGEMENT DYSFUNCTION Findings Left Ventricle: The left ventricular chamber size is normal. Global left ventricular systolic function is normal. The estimated ejection fraction is 55-60%. Abnormal left ventricular diastolic filling is observed, consistent with impaired relaxation. Left Atrium: The left atrial chamber size is normal. Right Ventricle: The right ventricle is mildly dilated. The right ventricular global systolic function is moderately reduced. Right Atrium: The right atrial cavity size is normal. Aortic Valve: The aortic valve leaflets are mildly thickened. There is no evidence of aortic regurgitation. Mitral Valve: The mitral valve leaflets appear normal. There is no evidence of mitral regurgitation. Tricuspid Valve: There is no evidence of tricuspid valve regurgitation. Pulmonic Valve: The pulmonic valve is not well visualized. Pericardium: There is no pericardial effusion. Aorta: The aorta appears normal. Measurements Chambers 2D Name Value Normal Range IVSd (2D) 1.07 cm (0.6 - 1.1) LVPWd (2D) 0.96 cm (0.6 - 1.1) LVIDd (2D) 4.93 cm (3.7 - 5.6) LVIDs (2D) 4.08 cm (2 - 3.8) LV FS (2D) 17.21 % - Ao root diameter (2D) 3.72 cm (2 - 3.7) Volumes/Mass Name Value Normal Range LA ESV SP 4CH (A/L) 20.87 ml - LA ESV SP 2CH (A/L) 41 ml - LA ESV BP (A/L) 30.22 ml - LA ESV BP (A/L) index 14.96 ml/m2 - LA ESV SP 4CH (MOD) 21.34 ml - LA ESV SP 2CH (MOD) 40.04 ml - LA ESV BP (MOD) 29.33 ml - LA ESV BP (MOD) index 14.52 ml/m2 - Diastolic/Systolic Function Name Value Normal Range MV E-wave Vmax 0.48 m/sec - MV deceleration time 268.38 msec - MV A-wave Vmax 0.56 m/sec - MV E:A ratio 0.86 ratio - Aortic Valve Name Value Normal Range AV Vmax 1.22 m/sec - AV VTI 22.32 cm - AV peak gradient 5.99 mmHg - AV mean gradient 3.69 mmHg - LVOT diameter 2.65 cm - LVOT Vmax 0.73 m/sec - LVOT VTI 13.52 cm - LVOT peak gradient 2.13 mmHg - LVOT mean gradient 1.22 mmHg - SV LVOT 74.61 ml - AGNES (continuity Vmax) 3.29 cm2 - AGNES (continuity VTI) 3.34 cm2 - Tricuspid Valve Name Value Normal Range RAP 3 mmHg - IVC diameter 2.23 cm (1.2 - 2.3) Pulmonic Valve/Qp:Qs Name Value Normal Range PV acceleration time 98.95 msec - Cohen/IV: Voiding Method Incontinent IV Catheter Type [Left Forearm INT / Saline Lock ] IV Catheter Type [Right INT / Saline Lock Antecubital] IV Catheter Type [Left Wrist] INT / Saline Lock IV Catheter Type [Right Wrist] INT / Saline Lock IV Catheter Type [Left INT / Saline Lock Antecubital] IV Catheter Type [Right Hand] INT / Saline Lock Active Medications - Current Medications Current Medications: Generic Name Dose Route Start Last Admin Trade Name Freq PRN Reason Stop Dose Admin Acetaminophen 650 mg 11/27/19 19:22 11/29/19 23:20 Tylenol PO 650 mg Q4H PRN Administration Pain MILD(1-3)/Fever >100.5/DIXON Albuterol/Ipratropium 1 ampul 11/27/19 19:24 11/28/19 02:00 Duoneb *Not For Prn Use* IH 1 ampul Q3H PRN Administration Wheezing Albuterol/Ipratropium 1 ampul 11/27/19 20:00 12/10/19 11:48 Duoneb *Not For Prn Use* IH 1 ampul QIDRT AYAKA Administration Lipase/Protease/Amylase 1 each 11/29/19 12:44 [place] 10,500 Unit FEEDTUBE PRN PRN For Clogged Feeding Tube Apixaban 5 mg 12/07/19 22:00 12/10/19 09:33 Eliquis PO 5 mg Q12HR AYAKA Administration Protocol Budesonide 0.5 mg 12/06/19 10:00 12/10/19 07:47 Pulmicort IH 0.5 mg Q12HRT AYAKA Administration Carvedilol 3.125 mg 11/30/19 22:00 12/10/19 09:34 Coreg PO 3.125 mg BID AYAKA Administration Famotidine 20 mg 11/29/19 10:00 12/10/19 09:32 Pepcid PO 20 mg BID AYAKA Administration Furosemide 40 mg 12/07/19 08:00 12/10/19 05:11 Lasix IV Not Given 0600 AYAKA Lisinopril 2.5 mg 12/01/19 10:00 12/10/19 09:38 Zestril PO Not Given QDAY AYAKA Morphine Sulfate 2 mg 11/27/19 19:22 12/09/19 21:22 Morphine IV 2 mg Q4H PRN Administration Pain, Moderate (4-6) Olanzapine 20 mg 11/27/19 22:00 12/09/19 21:21 Zyprexa PO 20 mg HS AYAKA Administration Olanzapine 10 mg 11/30/19 11:00 12/10/19 09:36 Zyprexa PO 10 mg DAILY AYAKA Administration Ondansetron HCl 4 mg 11/27/19 19:22 Zofran IV Q3H PRN Nausea And Vomiting Prednisone 60 mg 12/07/19 10:00 12/10/19 09:33 Deltasone PO 60 mg QDAY AYAKA Administration Simple Syrup 15 ml 11/29/19 12:44 Simple Syrup FEEDTUBE PRN PRN Hypoglycemia Simple Syrup 30 ml 11/29/19 12:44 Simple Syrup FEEDTUBE PRN PRN Hypoglycemia Sodium Bicarbonate 325 mg 11/29/19 12:44 Sodium Bicarbonate FEEDTUBE PRN PRN For Clogged Feeding Tube Sodium Chloride 10 ml 11/27/19 22:00 12/10/19 09:35 Sodium Chloride Flush Syringe 10 Ml IV 10 ml BID AYAKA Administration Sodium Chloride 10 ml 11/27/19 19:22 12/04/19 05:50 Sodium Chloride Flush Syringe 10 Ml IV 10 ml PRN PRN Administration LINE FLUSH Valproic Acid 250 mg 11/29/19 10:00 12/10/19 09:38 Depakene Liq FEEDTUBE 250 mg BID AYAKA Administration Nutrition/Malnutrition Assess - Dietary Evaluation Nutrition/Malnutrition Findings: Nutrition Notes Start: 11/29/19 12:28 Freq: Status: Active Protocol: Document 12/07/19 13:36 TAY (Rec: 12/07/19 13:41 TAY [id number]) Co-Sign 12/07/19 13:36 LM Nutrition Notes Initial or Follow up Reassessment Current Diagnosis Coronary Artery Disease, Hypertension,Heart Failure Other Pertinent Diagnosis Acute respiratory failure Current Diet Pureed cardiac Labs/Tests BUN 74 Pertinent Medications Reviewed Height 6 ft 1 in Weight 154.221 kg [place] Body Weight (kg) 83.63 BMI 44.9 Weight Status Morbidly Obese Subjective/Other Information F/U for diet advancement. Pt receiving pureed cardiac diet. Per RN, pt consuming 100%. Percent of energy/protein needs met: 90%/61% Burn Absent Trauma Absent GI Symptoms None Current % PO Negligible Minimum of two criteria No physical signs of malnutrition #1 Nutrition Diagnosis Inadequate oral intake As Evidenced by Signs and Symptoms Pt consuming 100% pureed diet Diagnosis Progress(for reassessment Improved documentation) Is patient on ventilator? No Is Patient Ambulatory and/or Out of Bed No REE-([place]-confined to bed) 2962.056 Kcal/Kg value to use for calculation 13 Approximate Energy Requirements Using 2005 kcal/Kg Calculation Used for Recommendations Kcal/kg Additional Notes Pro: 125-155 g (.8-1.0 g/kg ABW) Fluid: 1 ml/kcal Nutrition Intervention Change Diet Order: Advance diet when medically feasible Goal #1 Diet advancement when medically feasible. Goal #2 Meet at least 75% energy and protein needs Anticipated Discharge Needs: Cardiac diet Follow-Up By: 12/14/19 Additional Comments F/U for intakes and diet advancement
--- NOTE | 2019-12-10 19:02 | Progress Note ---
Assessment and Plan 49 y/o male with acute respiratory failure, hypercapnic respiratory failure, and likely CHF, preserved EF 1. Now off oxygen. 2. Reviewed CM note in regards to LTACH. They have spoken with the patient's sister. However if patient truly does not require HFNC anymore then he will not meet criteria and does not need LTACH. 3. Continue BID lasix therapy. 4. Now that oxygen requirement had dropped, can start to wean steroids. Will c hange to 40 daily and taper as follows. 40 for 4 days, 20 for 4 days, 10 for 4 days then stop. 5. Oral therapy for VTE 6. Hopeful discharge in the next 24-48 hours. Subjective Date of service: 12/10/19 Principal diagnosis: Acute respiratory failure with hypoxia, COPD/CHF exacerbation Interval history: No acute events. Still on HFNC based on charting. Per the nurses notes a walk test was done on room air and patient had a sat of 89%, at rest 93. Patient currently lying in bed on room air. Pleasant today. Objective Vital Signs - 12hr 12/10/19 12/10/19 12/10/19 07:33 07:47 11:16 Temperature 96.4 F L 97.9 F Pulse Rate 81 94 H Pulse Rate [ 92 H Anterior Bilateral Throughout] Respiratory 18 18 Rate Respiratory 22 Rate [Anterior Bilateral Throughout] Blood Pressure 105/72 95/57 O2 Sat by Pulse 96 97 89 Oximetry 12/10/19 12/10/19 12/10/19 11:50 16:23 16:29 Temperature 98.7 F Pulse Rate 83 Pulse Rate [ 90 72 Anterior Bilateral Throughout] Respiratory 18 Rate Respiratory 18 24 Rate [Anterior Bilateral Throughout] Blood Pressure 80/50 O2 Sat by Pulse 92 Oximetry Constitutional: no acute distress, alert Eyes: non-icteric ENT: oropharynx moist Neck: supple Effort: normal Ascultation: Bilateral: clear, diminished breath sounds, wheezes (bilateral wheezes) Percussion: Bilateral: not dull Cardiovascular: regular rate and rhythm (no mrg) Gastrointestinal: normoactive bowel sounds, soft, non-tender, non-distended Integumentary: normal Extremities: no cyanosis, no edema, pink and warm Neurologic: normal mental status, non-focal exam, pupils equal and round, CN II- XII normal Psychiatric: mood appropriate, affect normal CBC and BMP: 12/08/19 10:00 12/08/19 10:00 ABG, PT/INR, D-dimer: ABG ABG pH 7.458 pH Units (7.350-7.450) H 12/02/19 04:08 POC ABG pCO2 61.7 mmHg (32.0-48.0) H 11/30/19 04:40 ABG pCO2 60.1 mm Hg 12/02/19 04:08 POC ABG pO2 86.6 mmHg (83-108) 11/30/19 04:40 ABG pO2 66.2 mm Hg (80.0-90.0) L 12/02/19 04:08 POC ABG HCO3 39.2 11/30/19 04:40 ABG O2 Saturation 94.4 % (95.0-99.0) L 12/02/19 04:08 PT/INR, D-dimer PT 14.6 Sec. (12.2-14.9) 11/27/19 12:08 INR 1.13 (0.87-1.13) 11/27/19 12:08 D-Dimer 2939.43 ng/mlDDU (0-234) H 12/01/19 14:29 Abnormal lab findings: Abnormal Labs 11/27/19 11/27/19 11/27/19 11:55 12:08 12:08 WBC RBC Hgb Hct 45.8 H MCV 97 H Lymph % (Auto) Lymph # (Auto) Seg Neuts % (Manual) 76.0 H Lymphocytes % (Manual) 3.0 L Monocytes % (Manual) 17.0 H Nucleated RBC % 1.0 H Seg Neutrophils # Seg Neutrophils # Man 7.9 H Lymphocytes # (Manual) 0.3 L Monocytes # (Manual) 1.8 H D-Dimer ABG pH 7.250 L POC ABG pCO2 POC ABG pO2 ABG pO2 61.4 L ABG HCO3 36.5 H ABG O2 Saturation 86.3 L ABG Base Excess 5.9 H ABG Potassium ABG Chloride ABG Glucose Oxyhemoglobin 81.6 L Sodium Potassium 5.5 H Chloride 93.8 L Carbon Dioxide 38 H BUN 75 H Glucose 109 H POC Glucose Calcium 8.3 L Magnesium 3.00 H Ferritin AST 505 H ALT 375 H Lactate Dehydrogenase 408 H C-Reactive Protein 19.50 H NT-Pro-B Natriuret Pep Total Protein Albumin 3.5 L Triglycerides Arterial Blood Glucose Arterial Blood Ionized Calcium Salicylates Acetaminophen 11/27/19 11/27/19 11/27/19 12:08 12:08 12:08 WBC RBC Hgb Hct MCV Lymph % (Auto) Lymph # (Auto) Seg Neuts % (Manual) Lymphocytes % (Manual) Monocytes % (Manual) Nucleated RBC % Seg Neutrophils # Seg Neutrophils # Man Lymphocytes # (Manual) Monocytes # (Manual) D-Dimer ABG pH POC ABG pCO2 POC ABG pO2 ABG pO2 ABG HCO3 ABG O2 Saturation ABG Base Excess ABG Potassium ABG Chloride ABG Glucose Oxyhemoglobin Sodium Potassium Chloride Carbon Dioxide BUN Glucose POC Glucose Calcium Magnesium Ferritin 818.7 H AST ALT Lactate Dehydrogenase C-Reactive Protein NT-Pro-B Natriuret Pep Total Protein Albumin Triglycerides Arterial Blood Glucose Arterial Blood Ionized Calcium Salicylates < 0.3 L Acetaminophen 5.0 L 11/27/19 11/27/19 11/28/19 12:22 22:40 01:45 WBC RBC Hgb Hct MCV Lymph % (Auto) Lymph # (Auto) Seg Neuts % (Manual) Lymphocytes % (Manual) Monocytes % (Manual) Nucleated RBC % Seg Neutrophils # Seg Neutrophils # Man Lymphocytes # (Manual) Monocytes # (Manual) D-Dimer ABG pH 7.086 L 7.257 L POC ABG pCO2 133.5 H 81.8 H POC ABG pO2 78.4 L 172.6 H ABG pO2 ABG HCO3 ABG O2 Saturation ABG Base Excess ABG Potassium ABG Chloride ABG Glucose Oxyhemoglobin Sodium Potassium Chloride Carbon Dioxide BUN Glucose POC Glucose Calcium Magnesium Ferritin AST ALT Lactate Dehydrogenase C-Reactive Protein NT-Pro-B Natriuret Pep 45960 H Total Protein Albumin Triglycerides Arterial Blood Glucose Arterial Blood Ionized Calcium Salicylates Acetaminophen 11/28/19 11/28/19 11/28/19 05:25 12:36 12:36 WBC 11.3 H RBC Hgb Hct MCV 97 H Lymph % (Auto) Lymph # (Auto) Seg Neuts % (Manual) Lymphocytes % (Manual) Monocytes % (Manual) Nucleated RBC % Seg Neutrophils # Seg Neutrophils # Man Lymphocytes # (Manual) Monocytes # (Manual) D-Dimer ABG pH POC ABG pCO2 64.2 H POC ABG pO2 68.1 L ABG pO2 ABG HCO3 ABG O2 Saturation ABG Base Excess ABG Potassium ABG Chloride ABG Glucose Oxyhemoglobin Sodium Potassium 5.4 H Chloride 95.8 L Carbon Dioxide 38 H BUN 46 H Glucose 114 H POC Glucose Calcium 8.0 L Magnesium Ferritin AST 169 H ALT 284 H Lactate Dehydrogenase C-Reactive Protein NT-Pro-B Natriuret Pep Total Protein 5.9 L Albumin 2.9 L Triglycerides Arterial Blood Glucose Arterial Blood Ionized Calcium Salicylates Acetaminophen 11/28/19 11/29/19 11/29/19 15:41 02:42 12:02 WBC RBC Hgb Hct MCV Lymph % (Auto) Lymph # (Auto) Seg Neuts % (Manual) Lymphocytes % (Manual) Monocytes % (Manual) Nucleated RBC % Seg Neutrophils # Seg Neutrophils # Man Lymphocytes # (Manual) Monocytes # (Manual) D-Dimer ABG pH POC ABG pCO2 57.2 H POC ABG pO2 80.2 L ABG pO2 ABG HCO3 ABG O2 Saturation ABG Base Excess ABG Potassium 4.6 H ABG Chloride 97.0 L ABG Glucose 131 H Oxyhemoglobin Sodium Potassium Chloride Carbon Dioxide BUN Glucose POC Glucose 122 H 123 H Calcium Magnesium Ferritin AST ALT Lactate Dehydrogenase C-Reactive Protein NT-Pro-B Natriuret Pep Total Protein Albumin Triglycerides Arterial Blood Glucose 131 H Arterial Blood Ionized Calcium 4.1 L Salicylates Acetaminophen 11/29/19 11/29/19 11/30/19 14:48 17:23 04:30 WBC RBC Hgb Hct MCV Lymph % (Auto) Lymph # (Auto) Seg Neuts % (Manual) Lymphocytes % (Manual) Monocytes % (Manual) Nucleated RBC % Seg Neutrophils # Seg Neutrophils # Man Lymphocytes # (Manual) Monocytes # (Manual) D-Dimer ABG pH POC ABG pCO2 POC ABG pO2 ABG pO2 ABG HCO3 ABG O2 Saturation ABG Base Excess ABG Potassium ABG Chloride ABG Glucose Oxyhemoglobin Sodium 148 H Potassium Chloride 97.4 L Carbon Dioxide 38 H BUN 51 H Glucose 147 H POC Glucose 127 H Calcium 7.9 L Magnesium Ferritin AST ALT Lactate Dehydrogenase C-Reactive Protein NT-Pro-B Natriuret Pep Total Protein Albumin Triglycerides 216 H Arterial Blood Glucose Arterial Blood Ionized Calcium Salicylates Acetaminophen 11/30/19 11/30/19 11/30/19 04:31 04:40 12:33 WBC RBC Hgb Hct MCV Lymph % (Auto) Lymph # (Auto) Seg Neuts % (Manual) Lymphocytes % (Manual) Monocytes % (Manual) Nucleated RBC % Seg Neutrophils # Seg Neutrophils # Man Lymphocytes # (Manual) Monocytes # (Manual) D-Dimer ABG pH POC ABG pCO2 61.7 H POC ABG pO2 ABG pO2 ABG HCO3 ABG O2 Saturation ABG Base Excess ABG Potassium 4.6 H ABG Chloride 97.0 L ABG Glucose 167 H Oxyhemoglobin Sodium Potassium Chloride 96.6 L Carbon Dioxide 37 H BUN 52 H Glucose 173 H POC Glucose 164 H Calcium 8.2 L Magnesium Ferritin AST 86 H ALT 219 H Lactate Dehydrogenase C-Reactive Protein NT-Pro-B Natriuret Pep Total Protein 6.1 L Albumin 3.0 L Triglycerides Arterial Blood Glucose 167 H Arterial Blood Ionized Calcium 4.4 L Salicylates Acetaminophen 11/30/19 12/01/19 12/01/19 18:38 00:26 04:16 WBC RBC Hgb Hct MCV Lymph % (Auto) Lymph # (Auto) Seg Neuts % (Manual) Lymphocytes % (Manual) Monocytes % (Manual) Nucleated RBC % Seg Neutrophils # Seg Neutrophils # Man Lymphocytes # (Manual) Monocytes # (Manual) D-Dimer ABG pH POC ABG pCO2 POC ABG pO2 ABG pO2 186.5 H ABG HCO3 42.8 H ABG O2 Saturation 99.1 H ABG Base Excess 14.4 H ABG Potassium ABG Chloride ABG Glucose Oxyhemoglobin Sodium Potassium Chloride Carbon Dioxide BUN Glucose POC Glucose 142 H 158 H Calcium Magnesium Ferritin AST ALT Lactate Dehydrogenase C-Reactive Protein NT-Pro-B Natriuret Pep Total Protein Albumin Triglycerides Arterial Blood Glucose Arterial Blood Ionized Calcium Salicylates Acetaminophen 12/01/19 12/01/19 12/01/19 05:35 12:17 14:29 WBC RBC Hgb Hct MCV Lymph % (Auto) Lymph # (Auto) Seg Neuts % (Manual) Lymphocytes % (Manual) Monocytes % (Manual) Nucleated RBC % Seg Neutrophils # Seg Neutrophils # Man Lymphocytes # (Manual) Monocytes # (Manual) D-Dimer 2939.43 H ABG pH POC ABG pCO2 POC ABG pO2 ABG pO2 ABG HCO3 ABG O2 Saturation ABG Base Excess ABG Potassium ABG Chloride ABG Glucose Oxyhemoglobin Sodium Potassium Chloride Carbon Dioxide BUN Glucose POC Glucose 151 H 191 H Calcium Magnesium Ferritin AST ALT Lactate Dehydrogenase C-Reactive Protein NT-Pro-B Natriuret Pep Total Protein Albumin Triglycerides Arterial Blood Glucose Arterial Blood Ionized Calcium Salicylates Acetaminophen 12/01/19 12/01/19 12/01/19 14:29 14:29 17:59 WBC RBC Hgb Hct MCV Lymph % (Auto) Lymph # (Auto) Seg Neuts % (Manual) Lymphocytes % (Manual) Monocytes % (Manual) Nucleated RBC % Seg Neutrophils # Seg Neutrophils # Man Lymphocytes # (Manual) Monocytes # (Manual) D-Dimer ABG pH POC ABG pCO2 POC ABG pO2 ABG pO2 ABG HCO3 ABG O2 Saturation ABG Base Excess ABG Potassium ABG Chloride ABG Glucose Oxyhemoglobin Sodium Potassium Chloride Carbon Dioxide BUN Glucose POC Glucose 147 H Calcium Magnesium Ferritin 369.3 H AST ALT Lactate Dehydrogenase C-Reactive Protein 2.60 H NT-Pro-B Natriuret Pep Total Protein Albumin Triglycerides Arterial Blood Glucose Arterial Blood Ionized Calcium Salicylates Acetaminophen 12/01/19 12/02/19 12/02/19 23:58 04:08 05:03 WBC 12.2 H RBC Hgb 15.8 H Hct 47.8 H MCV 95 H Lymph % (Auto) Lymph # (Auto) Seg Neuts % (Manual) Lymphocytes % (Manual) Monocytes % (Manual) Nucleated RBC % Seg Neutrophils # Seg Neutrophils # Man Lymphocytes # (Manual) Monocytes # (Manual) D-Dimer ABG pH 7.458 H POC ABG pCO2 POC ABG pO2 ABG pO2 66.2 L ABG HCO3 41.6 H ABG O2 Saturation 94.4 L ABG Base Excess 14.5 H ABG Potassium ABG Chloride ABG Glucose Oxyhemoglobin 92.4 L Sodium Potassium Chloride Carbon Dioxide BUN Glucose POC Glucose 126 H Calcium Magnesium Ferritin AST ALT Lactate Dehydrogenase C-Reactive Protein NT-Pro-B Natriuret Pep Total Protein Albumin Triglycerides Arterial Blood Glucose Arterial Blood Ionized Calcium Salicylates Acetaminophen 12/02/19 12/02/19 12/02/19 05:03 05:36 12:17 WBC RBC Hgb Hct MCV Lymph % (Auto) Lymph # (Auto) Seg Neuts % (Manual) Lymphocytes % (Manual) Monocytes % (Manual) Nucleated RBC % Seg Neutrophils # Seg Neutrophils # Man Lymphocytes # (Manual) Monocytes # (Manual) D-Dimer ABG pH POC ABG pCO2 POC ABG pO2 ABG pO2 ABG HCO3 ABG O2 Saturation ABG Base Excess ABG Potassium ABG Chloride ABG Glucose Oxyhemoglobin Sodium 151 H Potassium Chloride Carbon Dioxide 40 H BUN 54 H Glucose 142 H POC Glucose 136 H 135 H Calcium Magnesium Ferritin AST ALT Lactate Dehydrogenase C-Reactive Protein NT-Pro-B Natriuret Pep Total Protein Albumin Triglycerides Arterial Blood Glucose Arterial Blood Ionized Calcium Salicylates Acetaminophen 12/02/19 12/02/19 12/03/19 17:59 23:37 05:27 WBC RBC Hgb Hct MCV Lymph % (Auto) Lymph # (Auto) Seg Neuts % (Manual) Lymphocytes % (Manual) Monocytes % (Manual) Nucleated RBC % Seg Neutrophils # Seg Neutrophils # Man Lymphocytes # (Manual) Monocytes # (Manual) D-Dimer ABG pH POC ABG pCO2 POC ABG pO2 ABG pO2 ABG HCO3 ABG O2 Saturation ABG Base Excess ABG Potassium ABG Chloride ABG Glucose Oxyhemoglobin Sodium Potassium Chloride Carbon Dioxide BUN Glucose POC Glucose 139 H 120 H 110 H Calcium Magnesium Ferritin AST ALT Lactate Dehydrogenase C-Reactive Protein NT-Pro-B Natriuret Pep Total Protein Albumin Triglycerides Arterial Blood Glucose Arterial Blood Ionized Calcium Salicylates Acetaminophen 12/03/19 12/04/19 12/06/19 11:34 17:42 04:28 WBC 20.0 H RBC 5.68 H Hgb 17.8 H Hct 53.8 H MCV 95 H Lymph % (Auto) 4.7 L Lymph # (Auto) 0.9 L Seg Neuts % (Manual) Lymphocytes % (Manual) Monocytes % (Manual) Nucleated RBC % Seg Neutrophils # 18.2 H Seg Neutrophils # Man Lymphocytes # (Manual) Monocytes # (Manual) D-Dimer ABG pH POC ABG pCO2 POC ABG pO2 ABG pO2 ABG HCO3 ABG O2 Saturation ABG Base Excess ABG Potassium ABG Chloride ABG Glucose Oxyhemoglobin Sodium Potassium Chloride Carbon Dioxide BUN Glucose POC Glucose 110 H 149 H Calcium Magnesium Ferritin AST ALT Lactate Dehydrogenase C-Reactive Protein NT-Pro-B Natriuret Pep Total Protein Albumin Triglycerides Arterial Blood Glucose Arterial Blood Ionized Calcium Salicylates Acetaminophen 12/06/19 12/08/19 12/08/19 04:28 10:00 10:00 WBC 14.8 H RBC 5.45 H Hgb 17.0 H Hct 51.3 H MCV Lymph % (Auto) Lymph # (Auto) Seg Neuts % (Manual) 87.0 H Lymphocytes % (Manual) 8.0 L Monocytes % (Manual) Nucleated RBC % Seg Neutrophils # Seg Neutrophils # Man 12.9 H Lymphocytes # (Manual) Monocytes # (Manual) D-Dimer ABG pH POC ABG pCO2 POC ABG pO2 ABG pO2 ABG HCO3 ABG O2 Saturation ABG Base Excess ABG Potassium ABG Chloride ABG Glucose Oxyhemoglobin Sodium 135 L D Potassium Chloride 94.4 L 90.9 L Carbon Dioxide 34 H 33 H BUN 74 H 59 H Glucose 133 H 123 H POC Glucose Calcium Magnesium Ferritin AST ALT 60 H Lactate Dehydrogenase C-Reactive Protein NT-Pro-B Natriuret Pep Total Protein Albumin 3.3 L Triglycerides Arterial Blood Glucose Arterial Blood Ionized Calcium Salicylates Acetaminophen
[2019-12-11] MEDS: FUROSEMIDE 40 MG/4 ML INJ IV SCH (05:23)
[2019-12-11] MEDS: IPRATROPIUM/ALBUTEROL SULFATE 3 ML AMPUL.NEB IH SCH ×4 (08:15→21:37)
[2019-12-11] MEDS: BUDESONIDE 0.5 MG/2 ML NEBU IH SCH ×2 (08:15→21:37)
[2019-12-11] MEDS: VALPROIC ACID 250 MG/5 ML ORAL LIQD FEEDTUBE SCH ×2 (09:06→21:41)
[2019-12-11] MEDS: predniSONE 20 MG TAB PO SCH (09:07)
[2019-12-11] MEDS: carvediloL 3.125 MG TAB PO SCH ×2 (09:07→21:42)
[2019-12-11] MEDS: APIXABAN 5 MG TAB PO SCH ×2 (09:07→21:38)
[2019-12-11] MEDS: FAMOTIDINE 20 MG TAB PO SCH ×2 (09:07→21:38)
[2019-12-11] MEDS: LISINOPRIL 5 MG TAB PO SCH (09:08)
--- NOTE | 2019-12-11 11:35 | Progress Note ---
Assessment and Plan Assessment and plan: 49-year-old male with a medical history of psychiatric problems on valproic acid presented to the hospital on 11/26 with cough, weakness, malaise and fatigue. He was also having shortness of breath. Here in the ER, patient was noted to be hypoxic and he was placed on a BiPAP with slight improvement. Patient was subsequently admitted to the hospital with differentials of COPD exacerbation, acute exacerbation of congestive heart failure, possible Covid pneumonia. Patient was intubated for respiratory failure. Cardiology, pulmonology and ID on board. COVID-19 test performed showed negative results. 11/28 -11/29. Negative COVID-19 test. Remains intubated. Patient getting diuresed 11/30. 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 12/01. Patient found to have PEM started on Lovenox. Patient was extubated to BiPAP. Patient was extubated on 12/03/2019 patient transferred to floor on 12/04/2019 patient continues to be in mild respiratory distress patient able to walk to the restroom slightly agitated has a new sacral area redness but no open wound see wound care notes. 12/06. His steroids have been tapered. He is still on Lasix 40 mg IV twice daily. Cardiology is following closely. Currently patient is on 60% of oxygen. Patient needs to use BiPAP at night. Plan to follow-up with pulmonology in the office for sleep study and pulmonary function test. Anticoagulation switch to Eliquis 5 mg twice daily. Procalcitonin ordered to rule out possible infection but increased WBC could be as a result of steroid administration. 12/07. Still on 60-65% oxygen. Pulmonology following. Procalcitonin negative. 12/08. Patient has refused to keep his oxygen on today. Had episode of agitation today as per RN. Patient remained calm during my encounter this p.m. patient seen without oxygen on advancing to keep his oxygen on. Discussed with patient's family [Courtney] 12/09. He is calm today - still refuses oxygen but his oxygen has been holding above 90 in RA> See walk test. Has a history of psych issues. Has been seen by psych. He will need to go to LT[facility] when accepted. 12/10. Not requiring oxygen. On tapering doses of steroids. Switch lasix to PO. Does not qualify for LTAC. Will dc home. Problems --Sepsis POA Current Visit: Yes Status: Resolved Plan to address problem: --Acute hypoxemic respiratory failure Current Visit: Yes Status: Resolved Plan to address problem: Likely from severe COPD and CHF. Cardiology and pulmonology recommendations appreciated COVID-19 test negative Per ID coronavirus test to be repeated. COVID-19 test negative ---Hypercapnic respiratory failure Current Visit: Yes Status: Acute Qualifiers: Chronicity: acute on chronic Qualified Code(s): J96.22 - Acute and chronic respiratory failure with hypercapnia Plan to address problem: Low-dose prednisone taper Pulmonary recommendations appreciated ---Suspected 2019 novel coronavirus infection Current Visit: Yes Status: Acute Plan to address problem: Coronavirus PCR negative --- Acute pulmonary evaluation Current Visit: Yes Status: Acute Plan to address problem: Continue Eliquis twice daily Needs to have coagulation work-up as outpatient and heme follow-up ---Hypertension Current Visit: Yes Status: Chronic Qualifiers: Hypertension type: essential hypertension Qualified Code(s): I10 - Essential (primary) hypertension Plan to address problem: Continue antihypertensives ---Acute exacerbation of CHF (congestive heart failure) Current Visit: Yes Status: Acute Qualifiers: Heart failure type: combined systolic and diastolic Qualified Code(s): I50.43 - Acute on chronic combined systolic (congestive) and diastolic (congestive) heart failure Plan to address problem: Echocardiogram shows ejection fraction of 55 to 60% Switch lasix to PO ---Elevated LFTs Current Visit: Yes Status: Acute Plan to address problem: Passive congestion of the liver secondary to CHF Continue to monitor ---Coronary artery disease Current Visit: Yes Status: Chronic Qualifiers: Coronary Disease-Associated Artery/Lesion type: [place] artery [place] vs. transplanted heart: [place] heart Plan to address problem: On aspirin and probably but this is currently being held ? Cardiology following ---DVT prophylaxis Current Visit: Yes Status: Acute Plan to address problem: History Interval history: Patient seen and examined. Has no complaints. No longer on oxygen. Has no complaints. Hospitalist Physical - Physical exam Narrative exam: VITAL SIGNS: Reviewed. GENERAL: Awake and alert and responds to questions HEAD: No signs of head trauma. EYES: Pupils are equal. Extraocular motions intact. EARS: Hearing grossly intact. MOUTH: Oropharynx is normal. NECK: No adenopathy, no JVD. CHEST: Improved bilateral wheeze CARDIAC: Regular rate and rhythm. S1 and S2, without murmurs, gallops, or rubs. VASCULAR: No Edema. Peripheral pulses normal and equal in all extremities. ABDOMEN: Soft, non tender and non distended. No rebound or guarding, and no masses palpated. Bowel Sounds normal. MUSCULOSKELETAL: Good range of motion of all major joints. Extremities without clubbing, cyanosis or edema. NEUROLOGIC EXAM: Alert and oriented x3. No focal neurologic deficits PSYCHIATRIC: Stable mood SKIN: No obvious lesions - Constitutional Vitals: Temp Pulse Resp BP Pulse Ox 97.9 F 87 21 95/66 92 12/11/19 07:49 12/11/19 08:19 12/11/19 08:19 12/11/19 07:49 12/11/19 08:19 HEART Score - HEART Score Age: 45-65 Risk factors: 1-2 risk factors Troponin: 1-3x normal limit - Critical Actions Critical Actions: 4-6 pts:12-16.6% risk of adverse cardiac event. Should be admitted Results - Labs CBC & Chem 7: 12/08/19 10:00 12/08/19 10:00 Labs: Laboratory Last Values WBC 14.8 K/mm3 (4.5-11.0) H 12/08/19 10:00 RBC 5.45 M/mm3 (3.65-5.03) H 12/08/19 10:00 Hgb 17.0 gm/dl (11.8-15.2) H 12/08/19 10:00 Hct 51.3 % (35.5-45.6) H 12/08/19 10:00 MCV 94 fl (84-94) 12/08/19 10:00 MCH 31 pg (28-32) 12/08/19 10:00 MCHC 33 % (32-34) 12/08/19 10:00 RDW 13.8 % (13.2-15.2) 12/08/19 10:00 Plt Count 158 K/mm3 (140-440) 12/08/19 10:00 Lymph % (Auto) 4.7 % (13.4-35.0) L 12/06/19 04:28 [place] % (Auto) 4.1 % (0.0-7.3) 12/06/19 04:28 Eos % (Auto) 0.0 % (0.0-4.3) 12/06/19 04:28 Baso % (Auto) 0.1 % (0.0-1.8) 12/06/19 04:28 Lymph # (Auto) 0.9 K/mm3 (1.2-5.4) L 12/06/19 04:28 [place] # (Auto) 0.8 K/mm3 (0.0-0.8) 12/06/19 04:28 Eos # (Auto) 0.0 K/mm3 (0.0-0.4) 12/06/19 04:28 Baso # (Auto) 0.0 K/mm3 (0.0-0.1) 12/06/19 04:28 Add Manual Diff Complete 12/08/19 10:00 Total Counted 100 12/08/19 10:00 Seg Neutrophils % Sheet Writer 12/06/19 04:28 Seg Neuts % (Manual) 87.0 % (40.0-70.0) H 12/08/19 10:00 Band Neutrophils % 0 % 12/08/19 10:00 Lymphocytes % (Manual) 8.0 % (13.4-35.0) L 12/08/19 10:00 Reactive Lymphs % (Man) 0 % 12/08/19 10:00 Monocytes % (Manual) 4.0 % (0.0-7.3) 12/08/19 10:00 Eosinophils % (Manual) 1.0 % (0.0-4.3) 12/08/19 10:00 Basophils % (Manual) 0 % (0.0-1.8) 12/08/19 10:00 Metamyelocytes % 0 % 12/08/19 10:00 Myelocytes % 0 % 12/08/19 10:00 Promyelocytes % 0 % 12/08/19 10:00 Blast Cells % 0 % 12/08/19 10:00 Nucleated RBC % Not Reportable 12/08/19 10:00 Seg Neutrophils # 18.2 K/mm3 (1.8-7.7) H 12/06/19 04:28 Seg Neutrophils # Man 12.9 K/mm3 (1.8-7.7) H 12/08/19 10:00 Band Neutrophils # 0.0 K/mm3 12/08/19 10:00 Lymphocytes # (Manual) 1.2 K/mm3 (1.2-5.4) 12/08/19 10:00 Abs React Lymphs (Man) 0.0 K/mm3 12/08/19 10:00 Monocytes # (Manual) 0.6 K/mm3 (0.0-0.8) 12/08/19 10:00 Eosinophils # (Manual) 0.1 K/mm3 (0.0-0.4) 12/08/19 10:00 Basophils # (Manual) 0.0 K/mm3 (0.0-0.1) 12/08/19 10:00 Metamyelocytes # 0.0 K/mm3 12/08/19 10:00 Myelocytes # 0.0 K/mm3 12/08/19 10:00 Promyelocytes # 0.0 K/mm3 12/08/19 10:00 Blast Cells # 0.0 K/mm3 12/08/19 10:00 WBC Morphology Not Reportable 12/08/19 10:00 Hypersegmented Neuts Not Reportable 12/08/19 10:00 Hyposegmented Neuts Not Reportable 12/08/19 10:00 Hypogranular Neuts Not Reportable 12/08/19 10:00 Smudge Cells Not Reportable 12/08/19 10:00 Toxic Granulation Not Reportable 12/08/19 10:00 Toxic Vacuolation Not Reportable 12/08/19 10:00 Dohle Bodies Not Reportable 12/08/19 10:00 Pelger-Huet Anomaly Not Reportable 12/08/19 10:00 Malena Rods Not Reportable 12/08/19 10:00 Platelet Estimate Consistent w auto 12/08/19 10:00 Clumped Platelets Not Reportable 12/08/19 10:00 Plt Clumps, EDTA Not Reportable 12/08/19 10:00 Large Platelets Not Reportable 12/08/19 10:00 Giant Platelets Not Reportable 12/08/19 10:00 Platelet Satelliting Not Reportable 12/08/19 10:00 Plt Morphology Comment Not Reportable 12/08/19 10:00 RBC Morphology Normal 12/08/19 10:00 Dimorphic RBCs Not Reportable 12/08/19 10:00 Polychromasia Not Reportable 12/08/19 10:00 Hypochromasia Not Reportable 12/08/19 10:00 Poikilocytosis Not Reportable 12/08/19 10:00 Anisocytosis Not Reportable 12/08/19 10:00 Microcytosis Not Reportable 12/08/19 10:00 Macrocytosis Not Reportable 12/08/19 10:00 Spherocytes Not Reportable 12/08/19 10:00 Pappenheimer Bodies Not Reportable 12/08/19 10:00 Sickle Cells Not Reportable 12/08/19 10:00 Target Cells Not Reportable 12/08/19 10:00 Tear Drop Cells Not Reportable 12/08/19 10:00 Ovalocytes Not Reportable 12/08/19 10:00 Helmet Cells Not Reportable 12/08/19 10:00 [place] Bodies Not Reportable 12/08/19 10:00 [place] Rings Not Reportable 12/08/19 10:00 [place] Cells Not Reportable 12/08/19 10:00 Bite Cells Not Reportable 12/08/19 10:00 Crenated Cell Not Reportable 12/08/19 10:00 Elliptocytes Not Reportable 12/08/19 10:00 Acanthocytes (Spur) Not Reportable 12/08/19 10:00 Rouleaux Not Reportable 12/08/19 10:00 Hemoglobin C Crystals Not Reportable 12/08/19 10:00 Schistocytes Not Reportable 12/08/19 10:00 Malaria parasites Not Reportable 12/08/19 10:00 Rock Bodies Not Reportable 12/08/19 10:00 Hem Pathologist Commnt No 12/08/19 10:00 PT 14.6 Sec. (12.2-14.9) 11/27/19 12:08 INR 1.13 (0.87-1.13) 11/27/19 12:08 D-Dimer 2939.43 ng/mlDDU (0-234) H 12/01/19 14:29 ABG pH 7.458 pH Units (7.350-7.450) H 12/02/19 04:08 POC ABG pCO2 61.7 mmHg (32.0-48.0) H 11/30/19 04:40 ABG pCO2 60.1 mm Hg 12/02/19 04:08 POC ABG pO2 86.6 mmHg (83-108) 11/30/19 04:40 ABG pO2 66.2 mm Hg (80.0-90.0) L 12/02/19 04:08 POC ABG HCO3 39.2 11/30/19 04:40 ABG HCO3 41.6 mmol/L (20.0-26.0) H 12/02/19 04:08 ABG O2 Saturation 94.4 % (95.0-99.0) L 12/02/19 04:08 ABG O2 Content 20.5 (0.0-44) 12/02/19 04:08 POC ABG Base Excess 11.8 11/30/19 04:40 ABG Base Excess 14.5 mmol/L (-2.0-3.0) H 12/02/19 04:08 ABG Hemoglobin 15.8 gm/dl (14.0-18.0) 12/02/19 04:08 ABG Carboxyhemoglobin 1.5 % (0.0-5.0) 12/02/19 04:08 ABG Methemoglobin 0.6 % (0.0-1.5) 12/02/19 04:08 ABG Sodium 142.0 mmol/L (136.0-145.0) 11/30/19 04:40 ABG Potassium 4.6 mmol/L (3.40-4.50) H 11/30/19 04:40 ABG Chloride 97.0 mmol/L (98-107) L 11/30/19 04:40 ABG Glucose 167 mg/dL (65-95) H 11/30/19 04:40 Oxyhemoglobin 92.4 % (95.0-99.0) L 12/02/19 04:08 FiO2 40 % 12/02/19 04:08 Sodium 135 mmol/L (137-145) L D 12/08/19 10:00 Potassium 3.9 mmol/L (3.6-5.0) 12/08/19 10:00 Chloride 90.9 mmol/L (98-107) L 12/08/19 10:00 Carbon Dioxide 33 mmol/L (22-30) H 12/08/19 10:00 Anion Gap 15 mmol/L 12/08/19 10:00 BUN 59 mg/dL (9-20) H 12/08/19 10:00 Creatinine 1.0 mg/dL (0.8-1.3) 12/08/19 10:00 Estimated GFR > 60 ml/min 12/08/19 10:00 BUN/Creatinine Ratio 59 % 12/08/19 10:00 Glucose 123 mg/dL (75-100) H 12/08/19 10:00 POC Glucose 149 (70-105) H 12/04/19 17:42 Hemoglobin A1c 4.7 % (4-6) 11/28/19 04:15 Lactic Acid 1.30 mmol/L (0.7-2.0) 11/27/19 12:08 Calcium 8.5 mg/dL (8.4-10.2) 12/08/19 10:00 Magnesium 3.00 mg/dL (1.7-2.3) H 11/27/19 12:08 Ferritin 369.3 ng/mL (30.0-300.0) H 12/01/19 14:29 Total Bilirubin 1.10 mg/dL (0.1-1.2) 12/08/19 10:00 AST 31 units/L (5-40) 12/08/19 10:00 ALT 60 units/L (7-56) H 12/08/19 10:00 Alkaline Phosphatase 67 units/L (35-129) 12/08/19 10:00 Lactate Dehydrogenase 408 units/L (91-180) H 11/27/19 12:08 Total Creatine Kinase 83 units/L (55-170) 11/27/19 12:08 C-Reactive Protein 2.60 mg/dL (0.00-1.30) H 12/01/19 14:29 NT-Pro-B Natriuret Pep 32401 pg/mL (0-450) H 11/27/19 12:22 Total Protein 6.4 g/dL (6.3-8.2) 12/08/19 10:00 Albumin 3.3 g/dL (3.9-5) L 12/08/19 10:00 Albumin/Globulin Ratio 1.1 % 12/08/19 10:00 Triglycerides 216 mg/dL (2-149) H 11/30/19 04:30 Procalcitonin 0.06 ng/mL (<0.15) 12/07/19 05:42 Arterial Blood Glucose 167 mg/dL (65-95) H 11/30/19 04:40 Arterial Blood Ionized Calcium 4.4 mg/dL (4.6-5.3) L 11/30/19 04:40 Salicylates < 0.3 mg/dL (2.8-20.0) L 11/27/19 12:08 Acetaminophen 5.0 ug/mL (10.0-30.0) L 11/27/19 12:08 Valproic Acid 64.7 ug/mL (50-100) 11/27/19 12:08 Coronavirus (PCR) Negative (Negative) 12/08/19 07:08 - Diagnostic Impressions Diagnostic Impressions: Echocardiogram 11/27/19 19:28 Transthoracic Echocardiogram Indication: SOB BP: 124/71 HR: 75 Conclusions *EF 55-60% *TR JET INADEQUATE TO DETERMINE RVSP *RV ENLARGEMENT DYSFUNCTION Findings Left Ventricle: The left ventricular chamber size is normal. Global left ventricular systolic function is normal. The estimated ejection fraction is 55-60%. Abnormal left ventricular diastolic filling is observed, consistent with impaired relaxation. Left Atrium: The left atrial chamber size is normal. Right Ventricle: The right ventricle is mildly dilated. The right ventricular global systolic function is moderately reduced. Right Atrium: The right atrial cavity size is normal. Aortic Valve: The aortic valve leaflets are mildly thickened. There is no evidence of aortic regurgitation. Mitral Valve: The mitral valve leaflets appear normal. There is no evidence of mitral regurgitation. Tricuspid Valve: There is no evidence of tricuspid valve regurgitation. Pulmonic Valve: The pulmonic valve is not well visualized. Pericardium: There is no pericardial effusion. Aorta: The aorta appears normal. Measurements Chambers 2D Name Value Normal Range IVSd (2D) 1.07 cm (0.6 - 1.1) LVPWd (2D) 0.96 cm (0.6 - 1.1) LVIDd (2D) 4.93 cm (3.7 - 5.6) LVIDs (2D) 4.08 cm (2 - 3.8) LV FS (2D) 17.21 % - Ao root diameter (2D) 3.72 cm (2 - 3.7) Volumes/Mass Name Value Normal Range LA ESV SP 4CH (A/L) 20.87 ml - LA ESV SP 2CH (A/L) 41 ml - LA ESV BP (A/L) 30.22 ml - LA ESV BP (A/L) index 14.96 ml/m2 - LA ESV SP 4CH (MOD) 21.34 ml - LA ESV SP 2CH (MOD) 40.04 ml - LA ESV BP (MOD) 29.33 ml - LA ESV BP (MOD) index 14.52 ml/m2 - Diastolic/Systolic Function Name Value Normal Range MV E-wave Vmax 0.48 m/sec - MV deceleration time 268.38 msec - MV A-wave Vmax 0.56 m/sec - MV E:A ratio 0.86 ratio - Aortic Valve Name Value Normal Range AV Vmax 1.22 m/sec - AV VTI 22.32 cm - AV peak gradient 5.99 mmHg - AV mean gradient 3.69 mmHg - LVOT diameter 2.65 cm - LVOT Vmax 0.73 m/sec - LVOT VTI 13.52 cm - LVOT peak gradient 2.13 mmHg - LVOT mean gradient 1.22 mmHg - SV LVOT 74.61 ml - AGNES (continuity Vmax) 3.29 cm2 - AGNES (continuity VTI) 3.34 cm2 - Tricuspid Valve Name Value Normal Range RAP 3 mmHg - IVC diameter 2.23 cm (1.2 - 2.3) Pulmonic Valve/Qp:Qs Name Value Normal Range PV acceleration time 98.95 msec - Cohen/IV: Voiding Method Condom Catheter IV Catheter Type [Left Forearm INT / Saline Lock ] IV Catheter Type [Right INT / Saline Lock Antecubital] IV Catheter Type [Left Wrist] INT / Saline Lock IV Catheter Type [Right Wrist] INT / Saline Lock IV Catheter Type [Left INT / Saline Lock Antecubital] IV Catheter Type [Right Hand] INT / Saline Lock Active Medications - Current Medications Current Medications: Generic Name Dose Route Start Last Admin Trade Name Freq PRN Reason Stop Dose Admin Acetaminophen 650 mg 11/27/19 19:22 11/29/19 23:20 Tylenol PO 650 mg Q4H PRN Administration Pain MILD(1-3)/Fever >100.5/DIXON Albuterol/Ipratropium 1 ampul 11/27/19 19:24 11/28/19 02:00 Duoneb *Not For Prn Use* IH 1 ampul Q3H PRN Administration Wheezing Albuterol/Ipratropium 1 ampul 11/27/19 20:00 12/11/19 08:15 Duoneb *Not For Prn Use* IH 1 ampul QIDRT AYAKA Administration Lipase/Protease/Amylase 1 each 11/29/19 12:44 [place] 10,500 Unit FEEDTUBE PRN PRN For Clogged Feeding Tube Apixaban 5 mg 12/07/19 22:00 12/11/19 09:07 Eliquis PO 5 mg Q12HR AYAKA Administration Protocol Budesonide 0.5 mg 12/06/19 10:00 12/11/19 08:15 Pulmicort IH 0.5 mg Q12HRT AYAKA Administration Carvedilol 3.125 mg 11/30/19 22:00 12/11/19 09:07 Coreg PO Not Given BID AYAKA Famotidine 20 mg 11/29/19 10:00 12/11/19 09:07 Pepcid PO 20 mg BID AYAKA Administration Furosemide 40 mg 12/07/19 08:00 12/11/19 05:23 Lasix IV 40 mg 0600 AYAKA Administration Lisinopril 2.5 mg 12/01/19 10:00 12/11/19 09:08 Zestril PO Not Given QDAY AYAKA Morphine Sulfate 2 mg 11/27/19 19:22 12/09/19 21:22 Morphine IV 2 mg Q4H PRN Administration Pain, Moderate (4-6) Olanzapine 20 mg 11/27/19 22:00 12/10/19 21:19 Zyprexa PO 20 mg HS AYAKA Administration Olanzapine 10 mg 11/30/19 11:00 12/11/19 09:06 Zyprexa PO 10 mg DAILY AYAKA Administration Ondansetron HCl 4 mg 11/27/19 19:22 Zofran IV Q3H PRN Nausea And Vomiting Prednisone 60 mg 12/07/19 10:00 12/11/19 09:07 Deltasone PO 60 mg QDAY AYAKA Administration Simple Syrup 15 ml 11/29/19 12:44 Simple Syrup FEEDTUBE PRN PRN Hypoglycemia Simple Syrup 30 ml 11/29/19 12:44 Simple Syrup FEEDTUBE PRN PRN Hypoglycemia Sodium Bicarbonate 325 mg 11/29/19 12:44 Sodium Bicarbonate FEEDTUBE PRN PRN For Clogged Feeding Tube Sodium Chloride 10 ml 11/27/19 22:00 12/11/19 09:07 Sodium Chloride Flush Syringe 10 Ml IV 10 ml BID AYAKA Administration Sodium Chloride 10 ml 11/27/19 19:22 12/04/19 05:50 Sodium Chloride Flush Syringe 10 Ml IV 10 ml PRN PRN Administration LINE FLUSH Valproic Acid 250 mg 11/29/19 10:00 12/11/19 09:06 Depakene Liq FEEDTUBE 250 mg BID AYAKA Administration Nutrition/Malnutrition Assess - Dietary Evaluation Nutrition/Malnutrition Findings: Nutrition Notes Start: 11/29/19 12:28 Freq: Status: Active Protocol: Document 12/07/19 13:36 TAY (Rec: 12/07/19 13:41 TAY [id number]) Co-Sign 12/07/19 13:36 LM Nutrition Notes Initial or Follow up Reassessment Current Diagnosis Coronary Artery Disease, Hypertension,Heart Failure Other Pertinent Diagnosis Acute respiratory failure Current Diet Pureed cardiac Labs/Tests BUN 74 Pertinent Medications Reviewed Height 6 ft 1 in Weight 154.221 kg [place] Body Weight (kg) 83.63 BMI 44.9 Weight Status Morbidly Obese Subjective/Other Information F/U for diet advancement. Pt receiving pureed cardiac diet. Per RN, pt consuming 100%. Percent of energy/protein needs met: 90%/61% Burn Absent Trauma Absent GI Symptoms None Current % PO Negligible Minimum of two criteria No physical signs of malnutrition #1 Nutrition Diagnosis Inadequate oral intake As Evidenced by Signs and Symptoms Pt consuming 100% pureed diet Diagnosis Progress(for reassessment Improved documentation) Is patient on ventilator? No Is Patient Ambulatory and/or Out of Bed No REE-([facility]-confined to bed) 2962.056 Kcal/Kg value to use for calculation 13 Approximate Energy Requirements Using 2005 kcal/Kg Calculation Used for Recommendations Kcal/kg Additional Notes Pro: 125-155 g (.8-1.0 g/kg ABW) Fluid: 1 ml/kcal Nutrition Intervention Change Diet Order: Advance diet when medically feasible Goal #1 Diet advancement when medically feasible. Goal #2 Meet at least 75% energy and protein needs Anticipated Discharge Needs: Cardiac diet Follow-Up By: 12/14/19 Additional Comments F/U for intakes and diet advancement
--- NOTE | 2019-12-11 11:41 | Progress Note ---
Assessment and Plan 49 y/o male with acute respiratory failure, hypercapnic respiratory failure, and likely CHF, preserved EF No new recs for today. Please see recs for below. At this point will sign off. Patient is not a candidate for LTACH anymore since weaning from HFNC. Call if questions. 1. Now off oxygen. 2. Reviewed CM note in regards to LTACH. They have spoken with the patient's sister. However if patient truly does not require HFNC anymore then he will not meet criteria and does not need LTACH. 3. Continue BID lasix therapy. 4. Now that oxygen requirement had dropped, can start to wean steroids. Will change to 40 daily and taper as follows. 40 for 4 days, 20 for 4 days, 10 for 4 days then stop. 5. Oral therapy for VTE 6. Hopeful discharge in the next 24-48 hours. Subjective Date of service: 12/11/19 Principal diagnosis: Acute respiratory failure with hypoxia, COPD/CHF exacerbation Interval history: Patient remains on room air. Refused PPV again last night. Objective Vital Signs - 12hr 12/11/19 12/11/19 12/11/19 05:22 05:28 07:49 Temperature 98.2 F 97.9 F Pulse Rate 80 80 83 Pulse Rate [ Anterior Bilateral Throughout] Respiratory 20 20 Rate Respiratory Rate [Anterior Bilateral Throughout] Blood Pressure 95/66 Blood Pressure 110/69 [Left] O2 Sat by Pulse 94 92 Oximetry 12/11/19 08:19 Temperature Pulse Rate Pulse Rate [ 87 Anterior Bilateral Throughout] Respiratory Rate Respiratory 21 Rate [Anterior Bilateral Throughout] Blood Pressure Blood Pressure [Left] O2 Sat by Pulse 92 Oximetry Constitutional: no acute distress, alert Eyes: non-icteric ENT: oropharynx moist Neck: supple Effort: normal Ascultation: Bilateral: clear, diminished breath sounds, wheezes (bilateral wheezes) Percussion: Bilateral: not dull Cardiovascular: regular rate and rhythm (no mrg) Gastrointestinal: normoactive bowel sounds, soft, non-tender, non-distended Integumentary: normal Extremities: no cyanosis, no edema, pink and warm Neurologic: normal mental status, non-focal exam, pupils equal and round, CN II- XII normal Psychiatric: mood appropriate, affect normal CBC and BMP: 12/08/19 10:00 12/08/19 10:00 ABG, PT/INR, D-dimer: ABG ABG pH 7.458 pH Units (7.350-7.450) H 12/02/19 04:08 POC ABG pCO2 61.7 mmHg (32.0-48.0) H 11/30/19 04:40 ABG pCO2 60.1 mm Hg 12/02/19 04:08 POC ABG pO2 86.6 mmHg (83-108) 11/30/19 04:40 ABG pO2 66.2 mm Hg (80.0-90.0) L 12/02/19 04:08 POC ABG HCO3 39.2 11/30/19 04:40 ABG O2 Saturation 94.4 % (95.0-99.0) L 12/02/19 04:08 PT/INR, D-dimer PT 14.6 Sec. (12.2-14.9) 11/27/19 12:08 INR 1.13 (0.87-1.13) 11/27/19 12:08 D-Dimer 2939.43 ng/mlDDU (0-234) H 12/01/19 14:29 Abnormal lab findings: Abnormal Labs 11/27/19 11/27/19 11/27/19 11:55 12:08 12:08 WBC RBC Hgb Hct 45.8 H MCV 97 H Lymph % (Auto) Lymph # (Auto) Seg Neuts % (Manual) 76.0 H Lymphocytes % (Manual) 3.0 L Monocytes % (Manual) 17.0 H Nucleated RBC % 1.0 H Seg Neutrophils # Seg Neutrophils # Man 7.9 H Lymphocytes # (Manual) 0.3 L Monocytes # (Manual) 1.8 H D-Dimer ABG pH 7.250 L POC ABG pCO2 POC ABG pO2 ABG pO2 61.4 L ABG HCO3 36.5 H ABG O2 Saturation 86.3 L ABG Base Excess 5.9 H ABG Potassium ABG Chloride ABG Glucose Oxyhemoglobin 81.6 L Sodium Potassium 5.5 H Chloride 93.8 L Carbon Dioxide 38 H BUN 75 H Glucose 109 H POC Glucose Calcium 8.3 L Magnesium 3.00 H Ferritin AST 505 H ALT 375 H Lactate Dehydrogenase 408 H C-Reactive Protein 19.50 H NT-Pro-B Natriuret Pep Total Protein Albumin 3.5 L Triglycerides Arterial Blood Glucose Arterial Blood Ionized Calcium Salicylates Acetaminophen 11/27/19 11/27/19 11/27/19 12:08 12:08 12:08 WBC RBC Hgb Hct MCV Lymph % (Auto) Lymph # (Auto) Seg Neuts % (Manual) Lymphocytes % (Manual) Monocytes % (Manual) Nucleated RBC % Seg Neutrophils # Seg Neutrophils # Man Lymphocytes # (Manual) Monocytes # (Manual) D-Dimer ABG pH POC ABG pCO2 POC ABG pO2 ABG pO2 ABG HCO3 ABG O2 Saturation ABG Base Excess ABG Potassium ABG Chloride ABG Glucose Oxyhemoglobin Sodium Potassium Chloride Carbon Dioxide BUN Glucose POC Glucose Calcium Magnesium Ferritin 818.7 H AST ALT Lactate Dehydrogenase C-Reactive Protein NT-Pro-B Natriuret Pep Total Protein Albumin Triglycerides Arterial Blood Glucose Arterial Blood Ionized Calcium Salicylates < 0.3 L Acetaminophen 5.0 L 11/27/19 11/27/19 11/28/19 12:22 22:40 01:45 WBC RBC Hgb Hct MCV Lymph % (Auto) Lymph # (Auto) Seg Neuts % (Manual) Lymphocytes % (Manual) Monocytes % (Manual) Nucleated RBC % Seg Neutrophils # Seg Neutrophils # Man Lymphocytes # (Manual) Monocytes # (Manual) D-Dimer ABG pH 7.086 L 7.257 L POC ABG pCO2 133.5 H 81.8 H POC ABG pO2 78.4 L 172.6 H ABG pO2 ABG HCO3 ABG O2 Saturation ABG Base Excess ABG Potassium ABG Chloride ABG Glucose Oxyhemoglobin Sodium Potassium Chloride Carbon Dioxide BUN Glucose POC Glucose Calcium Magnesium Ferritin AST ALT Lactate Dehydrogenase C-Reactive Protein NT-Pro-B Natriuret Pep 46153 H Total Protein Albumin Triglycerides Arterial Blood Glucose Arterial Blood Ionized Calcium Salicylates Acetaminophen 11/28/19 11/28/19 11/28/19 05:25 12:36 12:36 WBC 11.3 H RBC Hgb Hct MCV 97 H Lymph % (Auto) Lymph # (Auto) Seg Neuts % (Manual) Lymphocytes % (Manual) Monocytes % (Manual) Nucleated RBC % Seg Neutrophils # Seg Neutrophils # Man Lymphocytes # (Manual) Monocytes # (Manual) D-Dimer ABG pH POC ABG pCO2 64.2 H POC ABG pO2 68.1 L ABG pO2 ABG HCO3 ABG O2 Saturation ABG Base Excess ABG Potassium ABG Chloride ABG Glucose Oxyhemoglobin Sodium Potassium 5.4 H Chloride 95.8 L Carbon Dioxide 38 H BUN 46 H Glucose 114 H POC Glucose Calcium 8.0 L Magnesium Ferritin AST 169 H ALT 284 H Lactate Dehydrogenase C-Reactive Protein NT-Pro-B Natriuret Pep Total Protein 5.9 L Albumin 2.9 L Triglycerides Arterial Blood Glucose Arterial Blood Ionized Calcium Salicylates Acetaminophen 11/28/19 11/29/19 11/29/19 15:41 02:42 12:02 WBC RBC Hgb Hct MCV Lymph % (Auto) Lymph # (Auto) Seg Neuts % (Manual) Lymphocytes % (Manual) Monocytes % (Manual) Nucleated RBC % Seg Neutrophils # Seg Neutrophils # Man Lymphocytes # (Manual) Monocytes # (Manual) D-Dimer ABG pH POC ABG pCO2 57.2 H POC ABG pO2 80.2 L ABG pO2 ABG HCO3 ABG O2 Saturation ABG Base Excess ABG Potassium 4.6 H ABG Chloride 97.0 L ABG Glucose 131 H Oxyhemoglobin Sodium Potassium Chloride Carbon Dioxide BUN Glucose POC Glucose 122 H 123 H Calcium Magnesium Ferritin AST ALT Lactate Dehydrogenase C-Reactive Protein NT-Pro-B Natriuret Pep Total Protein Albumin Triglycerides Arterial Blood Glucose 131 H Arterial Blood Ionized Calcium 4.1 L Salicylates Acetaminophen 11/29/19 11/29/19 11/30/19 14:48 17:23 04:30 WBC RBC Hgb Hct MCV Lymph % (Auto) Lymph # (Auto) Seg Neuts % (Manual) Lymphocytes % (Manual) Monocytes % (Manual) Nucleated RBC % Seg Neutrophils # Seg Neutrophils # Man Lymphocytes # (Manual) Monocytes # (Manual) D-Dimer ABG pH POC ABG pCO2 POC ABG pO2 ABG pO2 ABG HCO3 ABG O2 Saturation ABG Base Excess ABG Potassium ABG Chloride ABG Glucose Oxyhemoglobin Sodium 148 H Potassium Chloride 97.4 L Carbon Dioxide 38 H BUN 51 H Glucose 147 H POC Glucose 127 H Calcium 7.9 L Magnesium Ferritin AST ALT Lactate Dehydrogenase C-Reactive Protein NT-Pro-B Natriuret Pep Total Protein Albumin Triglycerides 216 H Arterial Blood Glucose Arterial Blood Ionized Calcium Salicylates Acetaminophen 11/30/19 11/30/19 11/30/19 04:31 04:40 12:33 WBC RBC Hgb Hct MCV Lymph % (Auto) Lymph # (Auto) Seg Neuts % (Manual) Lymphocytes % (Manual) Monocytes % (Manual) Nucleated RBC % Seg Neutrophils # Seg Neutrophils # Man Lymphocytes # (Manual) Monocytes # (Manual) D-Dimer ABG pH POC ABG pCO2 61.7 H POC ABG pO2 ABG pO2 ABG HCO3 ABG O2 Saturation ABG Base Excess ABG Potassium 4.6 H ABG Chloride 97.0 L ABG Glucose 167 H Oxyhemoglobin Sodium Potassium Chloride 96.6 L Carbon Dioxide 37 H BUN 52 H Glucose 173 H POC Glucose 164 H Calcium 8.2 L Magnesium Ferritin AST 86 H ALT 219 H Lactate Dehydrogenase C-Reactive Protein NT-Pro-B Natriuret Pep Total Protein 6.1 L Albumin 3.0 L Triglycerides Arterial Blood Glucose 167 H Arterial Blood Ionized Calcium 4.4 L Salicylates Acetaminophen 11/30/19 12/01/19 12/01/19 18:38 00:26 04:16 WBC RBC Hgb Hct MCV Lymph % (Auto) Lymph # (Auto) Seg Neuts % (Manual) Lymphocytes % (Manual) Monocytes % (Manual) Nucleated RBC % Seg Neutrophils # Seg Neutrophils # Man Lymphocytes # (Manual) Monocytes # (Manual) D-Dimer ABG pH POC ABG pCO2 POC ABG pO2 ABG pO2 186.5 H ABG HCO3 42.8 H ABG O2 Saturation 99.1 H ABG Base Excess 14.4 H ABG Potassium ABG Chloride ABG Glucose Oxyhemoglobin Sodium Potassium Chloride Carbon Dioxide BUN Glucose POC Glucose 142 H 158 H Calcium Magnesium Ferritin AST ALT Lactate Dehydrogenase C-Reactive Protein NT-Pro-B Natriuret Pep Total Protein Albumin Triglycerides Arterial Blood Glucose Arterial Blood Ionized Calcium Salicylates Acetaminophen 12/01/19 12/01/19 12/01/19 05:35 12:17 14:29 WBC RBC Hgb Hct MCV Lymph % (Auto) Lymph # (Auto) Seg Neuts % (Manual) Lymphocytes % (Manual) Monocytes % (Manual) Nucleated RBC % Seg Neutrophils # Seg Neutrophils # Man Lymphocytes # (Manual) Monocytes # (Manual) D-Dimer 2939.43 H ABG pH POC ABG pCO2 POC ABG pO2 ABG pO2 ABG HCO3 ABG O2 Saturation ABG Base Excess ABG Potassium ABG Chloride ABG Glucose Oxyhemoglobin Sodium Potassium Chloride Carbon Dioxide BUN Glucose POC Glucose 151 H 191 H Calcium Magnesium Ferritin AST ALT Lactate Dehydrogenase C-Reactive Protein NT-Pro-B Natriuret Pep Total Protein Albumin Triglycerides Arterial Blood Glucose Arterial Blood Ionized Calcium Salicylates Acetaminophen 12/01/19 12/01/19 12/01/19 14:29 14:29 17:59 WBC RBC Hgb Hct MCV Lymph % (Auto) Lymph # (Auto) Seg Neuts % (Manual) Lymphocytes % (Manual) Monocytes % (Manual) Nucleated RBC % Seg Neutrophils # Seg Neutrophils # Man Lymphocytes # (Manual) Monocytes # (Manual) D-Dimer ABG pH POC ABG pCO2 POC ABG pO2 ABG pO2 ABG HCO3 ABG O2 Saturation ABG Base Excess ABG Potassium ABG Chloride ABG Glucose Oxyhemoglobin Sodium Potassium Chloride Carbon Dioxide BUN Glucose POC Glucose 147 H Calcium Magnesium Ferritin 369.3 H AST ALT Lactate Dehydrogenase C-Reactive Protein 2.60 H NT-Pro-B Natriuret Pep Total Protein Albumin Triglycerides Arterial Blood Glucose Arterial Blood Ionized Calcium Salicylates Acetaminophen 12/01/19 12/02/19 12/02/19 23:58 04:08 05:03 WBC 12.2 H RBC Hgb 15.8 H Hct 47.8 H MCV 95 H Lymph % (Auto) Lymph # (Auto) Seg Neuts % (Manual) Lymphocytes % (Manual) Monocytes % (Manual) Nucleated RBC % Seg Neutrophils # Seg Neutrophils # Man Lymphocytes # (Manual) Monocytes # (Manual) D-Dimer ABG pH 7.458 H POC ABG pCO2 POC ABG pO2 ABG pO2 66.2 L ABG HCO3 41.6 H ABG O2 Saturation 94.4 L ABG Base Excess 14.5 H ABG Potassium ABG Chloride ABG Glucose Oxyhemoglobin 92.4 L Sodium Potassium Chloride Carbon Dioxide BUN Glucose POC Glucose 126 H Calcium Magnesium Ferritin AST ALT Lactate Dehydrogenase C-Reactive Protein NT-Pro-B Natriuret Pep Total Protein Albumin Triglycerides Arterial Blood Glucose Arterial Blood Ionized Calcium Salicylates Acetaminophen 12/02/19 12/02/19 12/02/19 05:03 05:36 12:17 WBC RBC Hgb Hct MCV Lymph % (Auto) Lymph # (Auto) Seg Neuts % (Manual) Lymphocytes % (Manual) Monocytes % (Manual) Nucleated RBC % Seg Neutrophils # Seg Neutrophils # Man Lymphocytes # (Manual) Monocytes # (Manual) D-Dimer ABG pH POC ABG pCO2 POC ABG pO2 ABG pO2 ABG HCO3 ABG O2 Saturation ABG Base Excess ABG Potassium ABG Chloride ABG Glucose Oxyhemoglobin Sodium 151 H Potassium Chloride Carbon Dioxide 40 H BUN 54 H Glucose 142 H POC Glucose 136 H 135 H Calcium Magnesium Ferritin AST ALT Lactate Dehydrogenase C-Reactive Protein NT-Pro-B Natriuret Pep Total Protein Albumin Triglycerides Arterial Blood Glucose Arterial Blood Ionized Calcium Salicylates Acetaminophen 12/02/19 12/02/19 12/03/19 17:59 23:37 05:27 WBC RBC Hgb Hct MCV Lymph % (Auto) Lymph # (Auto) Seg Neuts % (Manual) Lymphocytes % (Manual) Monocytes % (Manual) Nucleated RBC % Seg Neutrophils # Seg Neutrophils # Man Lymphocytes # (Manual) Monocytes # (Manual) D-Dimer ABG pH POC ABG pCO2 POC ABG pO2 ABG pO2 ABG HCO3 ABG O2 Saturation ABG Base Excess ABG Potassium ABG Chloride ABG Glucose Oxyhemoglobin Sodium Potassium Chloride Carbon Dioxide BUN Glucose POC Glucose 139 H 120 H 110 H Calcium Magnesium Ferritin AST ALT Lactate Dehydrogenase C-Reactive Protein NT-Pro-B Natriuret Pep Total Protein Albumin Triglycerides Arterial Blood Glucose Arterial Blood Ionized Calcium Salicylates Acetaminophen 12/03/19 12/04/19 12/06/19 11:34 17:42 04:28 WBC 20.0 H RBC 5.68 H Hgb 17.8 H Hct 53.8 H MCV 95 H Lymph % (Auto) 4.7 L Lymph # (Auto) 0.9 L Seg Neuts % (Manual) Lymphocytes % (Manual) Monocytes % (Manual) Nucleated RBC % Seg Neutrophils # 18.2 H Seg Neutrophils # Man Lymphocytes # (Manual) Monocytes # (Manual) D-Dimer ABG pH POC ABG pCO2 POC ABG pO2 ABG pO2 ABG HCO3 ABG O2 Saturation ABG Base Excess ABG Potassium ABG Chloride ABG Glucose Oxyhemoglobin Sodium Potassium Chloride Carbon Dioxide BUN Glucose POC Glucose 110 H 149 H Calcium Magnesium Ferritin AST ALT Lactate Dehydrogenase C-Reactive Protein NT-Pro-B Natriuret Pep Total Protein Albumin Triglycerides Arterial Blood Glucose Arterial Blood Ionized Calcium Salicylates Acetaminophen 12/06/19 12/08/19 12/08/19 04:28 10:00 10:00 WBC 14.8 H RBC 5.45 H Hgb 17.0 H Hct 51.3 H MCV Lymph % (Auto) Lymph # (Auto) Seg Neuts % (Manual) 87.0 H Lymphocytes % (Manual) 8.0 L Monocytes % (Manual) Nucleated RBC % Seg Neutrophils # Seg Neutrophils # Man 12.9 H Lymphocytes # (Manual) Monocytes # (Manual) D-Dimer ABG pH POC ABG pCO2 POC ABG pO2 ABG pO2 ABG HCO3 ABG O2 Saturation ABG Base Excess ABG Potassium ABG Chloride ABG Glucose Oxyhemoglobin Sodium 135 L D Potassium Chloride 94.4 L 90.9 L Carbon Dioxide 34 H 33 H BUN 74 H 59 H Glucose 133 H 123 H POC Glucose Calcium Magnesium Ferritin AST ALT 60 H Lactate Dehydrogenase C-Reactive Protein NT-Pro-B Natriuret Pep Total Protein Albumin 3.3 L Triglycerides Arterial Blood Glucose Arterial Blood Ionized Calcium Salicylates Acetaminophen
--- NOTE | 2019-12-11 12:32 | Progress Note ---
Assessment and Plan - Patient Problems (1) Acute pulmonary embolism Current Visit: Yes Status: Acute Plan to address problem: Continue Eliquis for oral anticoagulation in the setting of acute pulmonary embolism. Subjective Date of service: 12/11/19 Principal diagnosis: Acute respiratory failure with hypoxia, COPD/CHF exacerbation Interval history: Patient is comfortable, no new cardiac complaints. Objective Vital Signs Temp Pulse Pulse Resp Resp BP BP 12/11/19 12:24 84 21 12/11/19 08:19 87 21 12/11/19 07:49 97.9 F 83 20 95/66 12/11/19 05:28 98.2 F 80 20 110/69 12/11/19 05:22 80 12/10/19 21:20 98 H 101/66 12/10/19 20:32 91 H 16 12/10/19 19:17 98.0 F 107 H 18 101/66 12/10/19 16:29 98.7 F 83 18 80/50 12/10/19 16:23 72 24 Pulse Ox 12/11/19 12:24 12/11/19 08:19 92 12/11/19 07:49 92 12/11/19 05:28 12/11/19 05:22 94 12/10/19 21:20 12/10/19 20:32 94 12/10/19 19:17 89 12/10/19 16:29 92 12/10/19 16:23 - Physical Examination General: No Apparent Distress HEENT: Positive: PERRL Neck: Positive: neck supple Cardiac: Positive: Reg Rate and Rhythm Lungs: Positive: Decreased Breath Sounds Neuro: Positive: Grossly Intact Abdomen: Positive: Soft Skin: Positive: Clear Extremities: Absent: edema
[2019-12-12] MEDS ORDERED: FUROSEMIDE 40 MG TAB PO SCH (06:00)
[2019-12-12] MEDS: BUDESONIDE 0.5 MG/2 ML NEBU IH SCH (08:44)
[2019-12-12] MEDS: IPRATROPIUM/ALBUTEROL SULFATE 3 ML AMPUL.NEB IH SCH ×3 (08:44→16:43)
--- NOTE | 2019-12-12 09:02 | Progress Note ---
Assessment and Plan 49 y/o male with acute respiratory failure, hypercapnic respiratory failure, and likely CHF, preserved EF No new recs for today. Please see recs for below. At this point will sign off. Patient is not a candidate for LTACH anymore since weaning from HFNC. Call if questions. 1. Now off oxygen. 2. Reviewed CM note in regards to LTACH. They have spoken with the patient's sister. However if patient truly does not require HFNC anymore then he will not meet criteria and does not need LTACH. 3. Continue BID lasix therapy. 4. Now that oxygen requirement had dropped, can start to wean steroids. Will change to 40 daily and taper as follows. 40 for 4 days, 20 for 4 days, 10 for 4 days then stop. 5. Oral therapy for VTE 6. Hopeful discharge in the next 24-48 hours. Subjective Date of service: 12/12/19 Principal diagnosis: Acute respiratory failure with hypoxia, COPD/CHF exacerbation Interval history: No acute events. REmains on room air. Objective Vital Signs - 12hr 12/12/19 12/12/19 12/12/19 00:39 06:56 07:40 Temperature 97.3 F L 97.9 F Pulse Rate 75 80 79 Pulse Rate [ Anterior Bilateral Throughout] Respiratory 20 20 20 Rate Respiratory Rate [Anterior Bilateral Throughout] Blood Pressure 109/70 102/65 Blood Pressure 100/69 [Left] O2 Sat by Pulse 95 93 89 Oximetry 12/12/19 12/12/19 08:45 08:46 Temperature Pulse Rate Pulse Rate [ 95 H Anterior Bilateral Throughout] Respiratory Rate Respiratory 20 Rate [Anterior Bilateral Throughout] Blood Pressure Blood Pressure [Left] O2 Sat by Pulse 92 Oximetry Constitutional: no acute distress, alert Eyes: non-icteric ENT: oropharynx moist Neck: supple Effort: normal Ascultation: Bilateral: clear, diminished breath sounds, wheezes (bilateral wheezes) Percussion: Bilateral: not dull Cardiovascular: regular rate and rhythm (no mrg) Gastrointestinal: normoactive bowel sounds, soft, non-tender, non-distended Integumentary: normal Extremities: no cyanosis, no edema, pink and warm Neurologic: normal mental status, non-focal exam, pupils equal and round, CN II- XII normal Psychiatric: mood appropriate, affect normal CBC and BMP: 12/08/19 10:00 12/08/19 10:00 ABG, PT/INR, D-dimer: ABG ABG pH 7.458 pH Units (7.350-7.450) H 12/02/19 04:08 POC ABG pCO2 61.7 mmHg (32.0-48.0) H 11/30/19 04:40 ABG pCO2 60.1 mm Hg 12/02/19 04:08 POC ABG pO2 86.6 mmHg (83-108) 11/30/19 04:40 ABG pO2 66.2 mm Hg (80.0-90.0) L 12/02/19 04:08 POC ABG HCO3 39.2 11/30/19 04:40 ABG O2 Saturation 94.4 % (95.0-99.0) L 12/02/19 04:08 PT/INR, D-dimer PT 14.6 Sec. (12.2-14.9) 11/27/19 12:08 INR 1.13 (0.87-1.13) 11/27/19 12:08 D-Dimer 2939.43 ng/mlDDU (0-234) H 12/01/19 14:29 Abnormal lab findings: Abnormal Labs 11/27/19 11/27/19 11/27/19 11:55 12:08 12:08 WBC RBC Hgb Hct 45.8 H MCV 97 H Lymph % (Auto) Lymph # (Auto) Seg Neuts % (Manual) 76.0 H Lymphocytes % (Manual) 3.0 L Monocytes % (Manual) 17.0 H Nucleated RBC % 1.0 H Seg Neutrophils # Seg Neutrophils # Man 7.9 H Lymphocytes # (Manual) 0.3 L Monocytes # (Manual) 1.8 H D-Dimer ABG pH 7.250 L POC ABG pCO2 POC ABG pO2 ABG pO2 61.4 L ABG HCO3 36.5 H ABG O2 Saturation 86.3 L ABG Base Excess 5.9 H ABG Potassium ABG Chloride ABG Glucose Oxyhemoglobin 81.6 L Sodium Potassium 5.5 H Chloride 93.8 L Carbon Dioxide 38 H BUN 75 H Glucose 109 H POC Glucose Calcium 8.3 L Magnesium 3.00 H Ferritin AST 505 H ALT 375 H Lactate Dehydrogenase 408 H C-Reactive Protein 19.50 H NT-Pro-B Natriuret Pep Total Protein Albumin 3.5 L Triglycerides Arterial Blood Glucose Arterial Blood Ionized Calcium Salicylates Acetaminophen 11/27/19 11/27/19 11/27/19 12:08 12:08 12:08 WBC RBC Hgb Hct MCV Lymph % (Auto) Lymph # (Auto) Seg Neuts % (Manual) Lymphocytes % (Manual) Monocytes % (Manual) Nucleated RBC % Seg Neutrophils # Seg Neutrophils # Man Lymphocytes # (Manual) Monocytes # (Manual) D-Dimer ABG pH POC ABG pCO2 POC ABG pO2 ABG pO2 ABG HCO3 ABG O2 Saturation ABG Base Excess ABG Potassium ABG Chloride ABG Glucose Oxyhemoglobin Sodium Potassium Chloride Carbon Dioxide BUN Glucose POC Glucose Calcium Magnesium Ferritin 818.7 H AST ALT Lactate Dehydrogenase C-Reactive Protein NT-Pro-B Natriuret Pep Total Protein Albumin Triglycerides Arterial Blood Glucose Arterial Blood Ionized Calcium Salicylates < 0.3 L Acetaminophen 5.0 L 11/27/19 11/27/19 11/28/19 12:22 22:40 01:45 WBC RBC Hgb Hct MCV Lymph % (Auto) Lymph # (Auto) Seg Neuts % (Manual) Lymphocytes % (Manual) Monocytes % (Manual) Nucleated RBC % Seg Neutrophils # Seg Neutrophils # Man Lymphocytes # (Manual) Monocytes # (Manual) D-Dimer ABG pH 7.086 L 7.257 L POC ABG pCO2 133.5 H 81.8 H POC ABG pO2 78.4 L 172.6 H ABG pO2 ABG HCO3 ABG O2 Saturation ABG Base Excess ABG Potassium ABG Chloride ABG Glucose Oxyhemoglobin Sodium Potassium Chloride Carbon Dioxide BUN Glucose POC Glucose Calcium Magnesium Ferritin AST ALT Lactate Dehydrogenase C-Reactive Protein NT-Pro-B Natriuret Pep 51711 H Total Protein Albumin Triglycerides Arterial Blood Glucose Arterial Blood Ionized Calcium Salicylates Acetaminophen 11/28/19 11/28/19 11/28/19 05:25 12:36 12:36 WBC 11.3 H RBC Hgb Hct MCV 97 H Lymph % (Auto) Lymph # (Auto) Seg Neuts % (Manual) Lymphocytes % (Manual) Monocytes % (Manual) Nucleated RBC % Seg Neutrophils # Seg Neutrophils # Man Lymphocytes # (Manual) Monocytes # (Manual) D-Dimer ABG pH POC ABG pCO2 64.2 H POC ABG pO2 68.1 L ABG pO2 ABG HCO3 ABG O2 Saturation ABG Base Excess ABG Potassium ABG Chloride ABG Glucose Oxyhemoglobin Sodium Potassium 5.4 H Chloride 95.8 L Carbon Dioxide 38 H BUN 46 H Glucose 114 H POC Glucose Calcium 8.0 L Magnesium Ferritin AST 169 H ALT 284 H Lactate Dehydrogenase C-Reactive Protein NT-Pro-B Natriuret Pep Total Protein 5.9 L Albumin 2.9 L Triglycerides Arterial Blood Glucose Arterial Blood Ionized Calcium Salicylates Acetaminophen 11/28/19 11/29/19 11/29/19 15:41 02:42 12:02 WBC RBC Hgb Hct MCV Lymph % (Auto) Lymph # (Auto) Seg Neuts % (Manual) Lymphocytes % (Manual) Monocytes % (Manual) Nucleated RBC % Seg Neutrophils # Seg Neutrophils # Man Lymphocytes # (Manual) Monocytes # (Manual) D-Dimer ABG pH POC ABG pCO2 57.2 H POC ABG pO2 80.2 L ABG pO2 ABG HCO3 ABG O2 Saturation ABG Base Excess ABG Potassium 4.6 H ABG Chloride 97.0 L ABG Glucose 131 H Oxyhemoglobin Sodium Potassium Chloride Carbon Dioxide BUN Glucose POC Glucose 122 H 123 H Calcium Magnesium Ferritin AST ALT Lactate Dehydrogenase C-Reactive Protein NT-Pro-B Natriuret Pep Total Protein Albumin Triglycerides Arterial Blood Glucose 131 H Arterial Blood Ionized Calcium 4.1 L Salicylates Acetaminophen 11/29/19 11/29/19 11/30/19 14:48 17:23 04:30 WBC RBC Hgb Hct MCV Lymph % (Auto) Lymph # (Auto) Seg Neuts % (Manual) Lymphocytes % (Manual) Monocytes % (Manual) Nucleated RBC % Seg Neutrophils # Seg Neutrophils # Man Lymphocytes # (Manual) Monocytes # (Manual) D-Dimer ABG pH POC ABG pCO2 POC ABG pO2 ABG pO2 ABG HCO3 ABG O2 Saturation ABG Base Excess ABG Potassium ABG Chloride ABG Glucose Oxyhemoglobin Sodium 148 H Potassium Chloride 97.4 L Carbon Dioxide 38 H BUN 51 H Glucose 147 H POC Glucose 127 H Calcium 7.9 L Magnesium Ferritin AST ALT Lactate Dehydrogenase C-Reactive Protein NT-Pro-B Natriuret Pep Total Protein Albumin Triglycerides 216 H Arterial Blood Glucose Arterial Blood Ionized Calcium Salicylates Acetaminophen 11/30/19 11/30/19 11/30/19 04:31 04:40 12:33 WBC RBC Hgb Hct MCV Lymph % (Auto) Lymph # (Auto) Seg Neuts % (Manual) Lymphocytes % (Manual) Monocytes % (Manual) Nucleated RBC % Seg Neutrophils # Seg Neutrophils # Man Lymphocytes # (Manual) Monocytes # (Manual) D-Dimer ABG pH POC ABG pCO2 61.7 H POC ABG pO2 ABG pO2 ABG HCO3 ABG O2 Saturation ABG Base Excess ABG Potassium 4.6 H ABG Chloride 97.0 L ABG Glucose 167 H Oxyhemoglobin Sodium Potassium Chloride 96.6 L Carbon Dioxide 37 H BUN 52 H Glucose 173 H POC Glucose 164 H Calcium 8.2 L Magnesium Ferritin AST 86 H ALT 219 H Lactate Dehydrogenase C-Reactive Protein NT-Pro-B Natriuret Pep Total Protein 6.1 L Albumin 3.0 L Triglycerides Arterial Blood Glucose 167 H Arterial Blood Ionized Calcium 4.4 L Salicylates Acetaminophen 11/30/19 12/01/19 12/01/19 18:38 00:26 04:16 WBC RBC Hgb Hct MCV Lymph % (Auto) Lymph # (Auto) Seg Neuts % (Manual) Lymphocytes % (Manual) Monocytes % (Manual) Nucleated RBC % Seg Neutrophils # Seg Neutrophils # Man Lymphocytes # (Manual) Monocytes # (Manual) D-Dimer ABG pH POC ABG pCO2 POC ABG pO2 ABG pO2 186.5 H ABG HCO3 42.8 H ABG O2 Saturation 99.1 H ABG Base Excess 14.4 H ABG Potassium ABG Chloride ABG Glucose Oxyhemoglobin Sodium Potassium Chloride Carbon Dioxide BUN Glucose POC Glucose 142 H 158 H Calcium Magnesium Ferritin AST ALT Lactate Dehydrogenase C-Reactive Protein NT-Pro-B Natriuret Pep Total Protein Albumin Triglycerides Arterial Blood Glucose Arterial Blood Ionized Calcium Salicylates Acetaminophen 12/01/19 12/01/19 12/01/19 05:35 12:17 14:29 WBC RBC Hgb Hct MCV Lymph % (Auto) Lymph # (Auto) Seg Neuts % (Manual) Lymphocytes % (Manual) Monocytes % (Manual) Nucleated RBC % Seg Neutrophils # Seg Neutrophils # Man Lymphocytes # (Manual) Monocytes # (Manual) D-Dimer 2939.43 H ABG pH POC ABG pCO2 POC ABG pO2 ABG pO2 ABG HCO3 ABG O2 Saturation ABG Base Excess ABG Potassium ABG Chloride ABG Glucose Oxyhemoglobin Sodium Potassium Chloride Carbon Dioxide BUN Glucose POC Glucose 151 H 191 H Calcium Magnesium Ferritin AST ALT Lactate Dehydrogenase C-Reactive Protein NT-Pro-B Natriuret Pep Total Protein Albumin Triglycerides Arterial Blood Glucose Arterial Blood Ionized Calcium Salicylates Acetaminophen 12/01/19 12/01/19 12/01/19 14:29 14:29 17:59 WBC RBC Hgb Hct MCV Lymph % (Auto) Lymph # (Auto) Seg Neuts % (Manual) Lymphocytes % (Manual) Monocytes % (Manual) Nucleated RBC % Seg Neutrophils # Seg Neutrophils # Man Lymphocytes # (Manual) Monocytes # (Manual) D-Dimer ABG pH POC ABG pCO2 POC ABG pO2 ABG pO2 ABG HCO3 ABG O2 Saturation ABG Base Excess ABG Potassium ABG Chloride ABG Glucose Oxyhemoglobin Sodium Potassium Chloride Carbon Dioxide BUN Glucose POC Glucose 147 H Calcium Magnesium Ferritin 369.3 H AST ALT Lactate Dehydrogenase C-Reactive Protein 2.60 H NT-Pro-B Natriuret Pep Total Protein Albumin Triglycerides Arterial Blood Glucose Arterial Blood Ionized Calcium Salicylates Acetaminophen 12/01/19 12/02/19 12/02/19 23:58 04:08 05:03 WBC 12.2 H RBC Hgb 15.8 H Hct 47.8 H MCV 95 H Lymph % (Auto) Lymph # (Auto) Seg Neuts % (Manual) Lymphocytes % (Manual) Monocytes % (Manual) Nucleated RBC % Seg Neutrophils # Seg Neutrophils # Man Lymphocytes # (Manual) Monocytes # (Manual) D-Dimer ABG pH 7.458 H POC ABG pCO2 POC ABG pO2 ABG pO2 66.2 L ABG HCO3 41.6 H ABG O2 Saturation 94.4 L ABG Base Excess 14.5 H ABG Potassium ABG Chloride ABG Glucose Oxyhemoglobin 92.4 L Sodium Potassium Chloride Carbon Dioxide BUN Glucose POC Glucose 126 H Calcium Magnesium Ferritin AST ALT Lactate Dehydrogenase C-Reactive Protein NT-Pro-B Natriuret Pep Total Protein Albumin Triglycerides Arterial Blood Glucose Arterial Blood Ionized Calcium Salicylates Acetaminophen 12/02/19 12/02/19 12/02/19 05:03 05:36 12:17 WBC RBC Hgb Hct MCV Lymph % (Auto) Lymph # (Auto) Seg Neuts % (Manual) Lymphocytes % (Manual) Monocytes % (Manual) Nucleated RBC % Seg Neutrophils # Seg Neutrophils # Man Lymphocytes # (Manual) Monocytes # (Manual) D-Dimer ABG pH POC ABG pCO2 POC ABG pO2 ABG pO2 ABG HCO3 ABG O2 Saturation ABG Base Excess ABG Potassium ABG Chloride ABG Glucose Oxyhemoglobin Sodium 151 H Potassium Chloride Carbon Dioxide 40 H BUN 54 H Glucose 142 H POC Glucose 136 H 135 H Calcium Magnesium Ferritin AST ALT Lactate Dehydrogenase C-Reactive Protein NT-Pro-B Natriuret Pep Total Protein Albumin Triglycerides Arterial Blood Glucose Arterial Blood Ionized Calcium Salicylates Acetaminophen 12/02/19 12/02/19 12/03/19 17:59 23:37 05:27 WBC RBC Hgb Hct MCV Lymph % (Auto) Lymph # (Auto) Seg Neuts % (Manual) Lymphocytes % (Manual) Monocytes % (Manual) Nucleated RBC % Seg Neutrophils # Seg Neutrophils # Man Lymphocytes # (Manual) Monocytes # (Manual) D-Dimer ABG pH POC ABG pCO2 POC ABG pO2 ABG pO2 ABG HCO3 ABG O2 Saturation ABG Base Excess ABG Potassium ABG Chloride ABG Glucose Oxyhemoglobin Sodium Potassium Chloride Carbon Dioxide BUN Glucose POC Glucose 139 H 120 H 110 H Calcium Magnesium Ferritin AST ALT Lactate Dehydrogenase C-Reactive Protein NT-Pro-B Natriuret Pep Total Protein Albumin Triglycerides Arterial Blood Glucose Arterial Blood Ionized Calcium Salicylates Acetaminophen 12/03/19 12/04/19 12/06/19 11:34 17:42 04:28 WBC 20.0 H RBC 5.68 H Hgb 17.8 H Hct 53.8 H MCV 95 H Lymph % (Auto) 4.7 L Lymph # (Auto) 0.9 L Seg Neuts % (Manual) Lymphocytes % (Manual) Monocytes % (Manual) Nucleated RBC % Seg Neutrophils # 18.2 H Seg Neutrophils # Man Lymphocytes # (Manual) Monocytes # (Manual) D-Dimer ABG pH POC ABG pCO2 POC ABG pO2 ABG pO2 ABG HCO3 ABG O2 Saturation ABG Base Excess ABG Potassium ABG Chloride ABG Glucose Oxyhemoglobin Sodium Potassium Chloride Carbon Dioxide BUN Glucose POC Glucose 110 H 149 H Calcium Magnesium Ferritin AST ALT Lactate Dehydrogenase C-Reactive Protein NT-Pro-B Natriuret Pep Total Protein Albumin Triglycerides Arterial Blood Glucose Arterial Blood Ionized Calcium Salicylates Acetaminophen 12/06/19 12/08/19 12/08/19 04:28 10:00 10:00 WBC 14.8 H RBC 5.45 H Hgb 17.0 H Hct 51.3 H MCV Lymph % (Auto) Lymph # (Auto) Seg Neuts % (Manual) 87.0 H Lymphocytes % (Manual) 8.0 L Monocytes % (Manual) Nucleated RBC % Seg Neutrophils # Seg Neutrophils # Man 12.9 H Lymphocytes # (Manual) Monocytes # (Manual) D-Dimer ABG pH POC ABG pCO2 POC ABG pO2 ABG pO2 ABG HCO3 ABG O2 Saturation ABG Base Excess ABG Potassium ABG Chloride ABG Glucose Oxyhemoglobin Sodium 135 L D Potassium Chloride 94.4 L 90.9 L Carbon Dioxide 34 H 33 H BUN 74 H 59 H Glucose 133 H 123 H POC Glucose Calcium Magnesium Ferritin AST ALT 60 H Lactate Dehydrogenase C-Reactive Protein NT-Pro-B Natriuret Pep Total Protein Albumin 3.3 L Triglycerides Arterial Blood Glucose Arterial Blood Ionized Calcium Salicylates Acetaminophen
[2019-12-12] MEDS: carvediloL 3.125 MG TAB PO SCH (09:30)
[2019-12-12] MEDS: LISINOPRIL 5 MG TAB PO SCH (09:31)
[2019-12-12] MEDS: APIXABAN 5 MG TAB PO SCH (10:51)
[2019-12-12] MEDS: FAMOTIDINE 20 MG TAB PO SCH (10:51)
[2019-12-12] MEDS: VALPROIC ACID 250 MG/5 ML ORAL LIQD FEEDTUBE SCH (10:52)
--- NOTE | 2019-12-12 13:01 | Progress Note ---
Assessment and Plan Assessment and plan: 49-year-old male with a medical history of psychiatric problems on valproic acid presented to the hospital on 11/26 with cough, weakness, malaise and fatigue. He was also having shortness of breath. Here in the ER, patient was noted to be hypoxic and he was placed on a BiPAP with slight improvement. Patient was subsequently admitted to the hospital with differentials of COPD exacerbation, acute exacerbation of congestive heart failure, possible Covid pneumonia. Patient was intubated for respiratory failure. Cardiology, pulmonology and ID on board. COVID-19 test performed showed negative results. 11/28 -11/29. Negative COVID-19 test. Remains intubated. Patient getting diuresed 11/30. Continue vent management as presented with fly winder, wean as tolerated, obtain CTA chest to rule out PE as D-dimer was significant elevated. 12/01. Patient found to have PE started on Lovenox. Patient was extubated to BiPAP. Patient was extubated on 12/03/2019 patient transferred to floor on 12/04/2019 patient continues to be in mild respiratory distress patient able to walk to the restroom slightly agitated has a new sacral area redness but no open wound see wound care notes. 12/06. His steroids have been tapered. He is still on Lasix 40 mg IV twice daily. Cardiology is following closely. Currently patient is on 60% of oxygen. Patient needs to use BiPAP at night. Plan to follow-up with pulmonology in the office for sleep study and pulmonary function test. Anticoagulation switch to Eliquis 5 mg twice daily. Procalcitonin ordered to rule out possible infection but increased WBC could be as a result of steroid administration. 12/07. Still on 60-65% oxygen. Pulmonology following. Procalcitonin negative. 12/08. Patient has refused to keep his oxygen on today. Had episode of agitation today as per RN. Patient remained calm during my encounter this p.m. patient seen without oxygen on advancing to keep his oxygen on. Discussed with patient's family [Courtney] 12/09. He is calm today - still refuses oxygen but his oxygen has been holding above 90 in RA> See walk test. Has a history of psych issues. Has been seen by psych. He will need to go to LTAC when accepted. 12/10. Not requiring oxygen. On tapering doses of steroids. Switch lasix to PO. Does not qualify for LTAC. Will dc home. 12/11. Discussed with Janett (patients sister) about plan for DC. He is improving and is stable to be discharged. Awaiting call back from Marisel. Needs a walk test. Problems --Sepsis POA Current Visit: Yes Status: Resolved Plan to address problem: --Acute hypoxemic respiratory failure Current Visit: Yes Status: Resolved Plan to address problem: Likely from severe COPD and CHF. Cardiology and pulmonology recommendations appreciated COVID-19 test negative Per ID coronavirus test to be repeated. COVID-19 test negative ---Hypercapnic respiratory failure Current Visit: Yes Status: Acute Qualifiers: Chronicity: acute on chronic Qualified Code(s): J96.22 - Acute and chronic respiratory failure with hypercapnia Plan to address problem: Low-dose prednisone taper Pulmonary recommendations appreciated ---Suspected 2019 novel coronavirus infection Current Visit: Yes Status: Acute Plan to address problem: Coronavirus PCR negative --- Acute pulmonary evaluation Current Visit: Yes Status: Acute Plan to address problem: Continue Eliquis twice daily Needs to have coagulation work-up as outpatient and heme follow-up ---Hypertension Current Visit: Yes Status: Chronic Qualifiers: Hypertension type: essential hypertension Qualified Code(s): I10 - Essential (primary) hypertension Plan to address problem: Continue antihypertensives ---Acute exacerbation of CHF (congestive heart failure) Current Visit: Yes Status: Acute Qualifiers: Heart failure type: combined systolic and diastolic Qualified Code(s): I5 0.43 - Acute on chronic combined systolic (congestive) and diastolic (congestive) heart failure Plan to address problem: Echocardiogram shows ejection fraction of 55 to 60% Switch lasix to PO ---Elevated LFTs Current Visit: Yes Status: Acute Plan to address problem: Passive congestion of the liver secondary to CHF Continue to monitor ---Coronary artery disease Current Visit: Yes Status: Chronic Qualifiers: Coronary Disease-Associated Artery/Lesion type: [place] artery Habematolel vs. transplanted heart: [place] heart Plan to address problem: On aspirin and probably but this is currently being held ? Cardiology following ---Psych Current Visit: Yes Status: Acute Plan to address problem: Continue current medications Needs resources for outpatient psychiatry, cognitive behavioral therapy. The patent is to follow up with outpatient psych, and primary in 7 to 14 days upon discharge. History Interval history: Patient seen and examined. Has no complaints this morning. Hospitalist Physical - Physical exam Narrative exam: VITAL SIGNS: Reviewed. GENERAL: Awake and alert and responds to questions HEAD: No signs of head trauma. EYES: Pupils are equal. Extraocular motions intact. EARS: Hearing grossly intact. MOUTH: Oropharynx is normal. NECK: No adenopathy, no JVD. CHEST: Improved bilateral wheeze CARDIAC: Regular rate and rhythm. S1 and S2, without murmurs, gallops, or rubs. VASCULAR: No Edema. Peripheral pulses normal and equal in all extremities. ABDOMEN: Soft, non tender and non distended. No rebound or guarding, and no masses palpated. Bowel Sounds normal. MUSCULOSKELETAL: Good range of motion of all major joints. Extremities without clubbing, cyanosis or edema. NEUROLOGIC EXAM: Alert and oriented x3. No focal neurologic deficits PSYCHIATRIC: Stable mood SKIN: No obvious lesions - Constitutional Vitals: Temp Pulse Resp BP Pulse Ox 98.4 F 83 20 89/56 96 12/12/19 12:13 12/12/19 12:48 12/12/19 12:48 12/12/19 12:13 12/12/19 12:13 HEART Score - HEART Score Age: 45-65 Risk factors: 1-2 risk factors Troponin: 1-3x normal limit - Critical Actions Critical Actions: 4-6 pts:12-16.6% risk of adverse cardiac event. Should be admitted Results - Labs CBC & Chem 7: 12/08/19 10:00 12/08/19 10:00 Labs: Laboratory Last Values WBC 14.8 K/mm3 (4.5-11.0) H 12/08/19 10:00 RBC 5.45 M/mm3 (3.65-5.03) H 12/08/19 10:00 Hgb 17.0 gm/dl (11.8-15.2) H 12/08/19 10:00 Hct 51.3 % (35.5-45.6) H 12/08/19 10:00 MCV 94 fl (84-94) 12/08/19 10:00 MCH 31 pg (28-32) 12/08/19 10:00 MCHC 33 % (32-34) 12/08/19 10:00 RDW 13.8 % (13.2-15.2) 12/08/19 10:00 Plt Count 158 K/mm3 (140-440) 12/08/19 10:00 Lymph % (Auto) 4.7 % (13.4-35.0) L 12/06/19 04:28 [place] % (Auto) 4.1 % (0.0-7.3) 12/06/19 04:28 Eos % (Auto) 0.0 % (0.0-4.3) 12/06/19 04:28 Baso % (Auto) 0.1 % (0.0-1.8) 12/06/19 04:28 Lymph # (Auto) 0.9 K/mm3 (1.2-5.4) L 12/06/19 04:28 [place] # (Auto) 0.8 K/mm3 (0.0-0.8) 12/06/19 04:28 Eos # (Auto) 0.0 K/mm3 (0.0-0.4) 12/06/19 04:28 Baso # (Auto) 0.0 K/mm3 (0.0-0.1) 12/06/19 04:28 Add Manual Diff Complete 12/08/19 10:00 Total Counted 100 12/08/19 10:00 Seg Neutrophils % [employer] 12/06/19 04:28 Seg Neuts % (Manual) 87.0 % (40.0-70.0) H 12/08/19 10:00 Band Neutrophils % 0 % 12/08/19 10:00 Lymphocytes % (Manual) 8.0 % (13.4-35.0) L 12/08/19 10:00 Reactive Lymphs % (Man) 0 % 12/08/19 10:00 Monocytes % (Manual) 4.0 % (0.0-7.3) 12/08/19 10:00 Eosinophils % (Manual) 1.0 % (0.0-4.3) 12/08/19 10:00 Basophils % (Manual) 0 % (0.0-1.8) 12/08/19 10:00 Metamyelocytes % 0 % 12/08/19 10:00 Myelocytes % 0 % 12/08/19 10:00 Promyelocytes % 0 % 12/08/19 10:00 Blast Cells % 0 % 12/08/19 10:00 Nucleated RBC % Not Reportable 12/08/19 10:00 Seg Neutrophils # 18.2 K/mm3 (1.8-7.7) H 12/06/19 04:28 Seg Neutrophils # Man 12.9 K/mm3 (1.8-7.7) H 12/08/19 10:00 Band Neutrophils # 0.0 K/mm3 12/08/19 10:00 Lymphocytes # (Manual) 1.2 K/mm3 (1.2-5.4) 12/08/19 10:00 Abs React Lymphs (Man) 0.0 K/mm3 12/08/19 10:00 Monocytes # (Manual) 0.6 K/mm3 (0.0-0.8) 12/08/19 10:00 Eosinophils # (Manual) 0.1 K/mm3 (0.0-0.4) 12/08/19 10:00 Basophils # (Manual) 0.0 K/mm3 (0.0-0.1) 12/08/19 10:00 Metamyelocytes # 0.0 K/mm3 12/08/19 10:00 Myelocytes # 0.0 K/mm3 12/08/19 10:00 Promyelocytes # 0.0 K/mm3 12/08/19 10:00 Blast Cells # 0.0 K/mm3 12/08/19 10:00 WBC Morphology Not Reportable 12/08/19 10:00 Hypersegmented Neuts Not Reportable 12/08/19 10:00 Hyposegmented Neuts Not Reportable 12/08/19 10:00 Hypogranular Neuts Not Reportable 12/08/19 10:00 Smudge Cells Not Reportable 12/08/19 10:00 Toxic Granulation Not Reportable 12/08/19 10:00 Toxic Vacuolation Not Reportable 12/08/19 10:00 Dohle Bodies Not Reportable 12/08/19 10:00 Pelger-Huet Anomaly Not Reportable 12/08/19 10:00 Malena Rods Not Reportable 12/08/19 10:00 Platelet Estimate Consistent w auto 12/08/19 10:00 Clumped Platelets Not Reportable 12/08/19 10:00 Plt Clumps, EDTA Not Reportable 12/08/19 10:00 Large Platelets Not Reportable 12/08/19 10:00 Giant Platelets Not Reportable 12/08/19 10:00 Platelet Satelliting Not Reportable 12/08/19 10:00 Plt Morphology Comment Not Reportable 12/08/19 10:00 RBC Morphology Normal 12/08/19 10:00 Dimorphic RBCs Not Reportable 12/08/19 10:00 Polychromasia Not Reportable 12/08/19 10:00 Hypochromasia Not Reportable 12/08/19 10:00 Poikilocytosis Not Reportable 12/08/19 10:00 Anisocytosis Not Reportable 12/08/19 10:00 Microcytosis Not Reportable 12/08/19 10:00 Macrocytosis Not Reportable 12/08/19 10:00 Spherocytes Not Reportable 12/08/19 10:00 Pappenheimer Bodies Not Reportable 12/08/19 10:00 Sickle Cells Not Reportable 12/08/19 10:00 Target Cells Not Reportable 12/08/19 10:00 Tear Drop Cells Not Reportable 12/08/19 10:00 Ovalocytes Not Reportable 12/08/19 10:00 Helmet Cells Not Reportable 12/08/19 10:00 Herrera-Friant Bodies Not Reportable 12/08/19 10:00 [place] Rings Not Reportable 12/08/19 10:00 Dain Cells Not Reportable 12/08/19 10:00 Bite Cells Not Reportable 12/08/19 10:00 Crenated Cell Not Reportable 12/08/19 10:00 Elliptocytes Not Reportable 12/08/19 10:00 Acanthocytes (Spur) Not Reportable 12/08/19 10:00 Rouleaux Not Reportable 12/08/19 10:00 Hemoglobin C Crystals Not Reportable 12/08/19 10:00 Schistocytes Not Reportable 12/08/19 10:00 Malaria parasites Not Reportable 12/08/19 10:00 Rock Bodies Not Reportable 12/08/19 10:00 Hem Pathologist Commnt No 12/08/19 10:00 PT 14.6 Sec. (12.2-14.9) 11/27/19 12:08 INR 1.13 (0.87-1.13) 11/27/19 12:08 D-Dimer 2939.43 ng/mlDDU (0-234) H 12/01/19 14:29 ABG pH 7.458 pH Units (7.350-7.450) H 12/02/19 04:08 POC ABG pCO2 61.7 mmHg (32.0-48.0) H 11/30/19 04:40 ABG pCO2 60.1 mm Hg 12/02/19 04:08 POC ABG pO2 86.6 mmHg (83-108) 11/30/19 04:40 ABG pO2 66.2 mm Hg (80.0-90.0) L 12/02/19 04:08 POC ABG HCO3 39.2 11/30/19 04:40 ABG HCO3 41.6 mmol/L (20.0-26.0) H 12/02/19 04:08 ABG O2 Saturation 94.4 % (95.0-99.0) L 12/02/19 04:08 ABG O2 Content 20.5 (0.0-44) 12/02/19 04:08 POC ABG Base Excess 11.8 11/30/19 04:40 ABG Base Excess 14.5 mmol/L (-2.0-3.0) H 12/02/19 04:08 ABG Hemoglobin 15.8 gm/dl (14.0-18.0) 12/02/19 04:08 ABG Carboxyhemoglobin 1.5 % (0.0-5.0) 12/02/19 04:08 ABG Methemoglobin 0.6 % (0.0-1.5) 12/02/19 04:08 ABG Sodium 142.0 mmol/L (136.0-145.0) 11/30/19 04:40 ABG Potassium 4.6 mmol/L (3.40-4.50) H 11/30/19 04:40 ABG Chloride 97.0 mmol/L (98-107) L 11/30/19 04:40 ABG Glucose 167 mg/dL (65-95) H 11/30/19 04:40 Oxyhemoglobin 92.4 % (95.0-99.0) L 12/02/19 04:08 FiO2 40 % 12/02/19 04:08 Sodium 135 mmol/L (137-145) L D 12/08/19 10:00 Potassium 3.9 mmol/L (3.6-5.0) 12/08/19 10:00 Chloride 90.9 mmol/L (98-107) L 12/08/19 10:00 Carbon Dioxide 33 mmol/L (22-30) H 12/08/19 10:00 Anion Gap 15 mmol/L 12/08/19 10:00 BUN 59 mg/dL (9-20) H 12/08/19 10:00 Creatinine 1.0 mg/dL (0.8-1.3) 12/08/19 10:00 Estimated GFR > 60 ml/min 12/08/19 10:00 BUN/Creatinine Ratio 59 % 12/08/19 10:00 Glucose 123 mg/dL (75-100) H 12/08/19 10:00 POC Glucose 149 (70-105) H 12/04/19 17:42 Hemoglobin A1c 4.7 % (4-6) 11/28/19 04:15 Lactic Acid 1.30 mmol/L (0.7-2.0) 11/27/19 12:08 Calcium 8.5 mg/dL (8.4-10.2) 12/08/19 10:00 Magnesium 3.00 mg/dL (1.7-2.3) H 11/27/19 12:08 Ferritin 369.3 ng/mL (30.0-300.0) H 12/01/19 14:29 Total Bilirubin 1.10 mg/dL (0.1-1.2) 12/08/19 10:00 AST 31 units/L (5-40) 12/08/19 10:00 ALT 60 units/L (7-56) H 12/08/19 10:00 Alkaline Phosphatase 67 units/L (35-129) 12/08/19 10:00 Lactate Dehydrogenase 408 units/L (91-180) H 11/27/19 12:08 Total Creatine Kinase 83 units/L (55-170) 11/27/19 12:08 C-Reactive Protein 2.60 mg/dL (0.00-1.30) H 12/01/19 14:29 NT-Pro-B Natriuret Pep 68203 pg/mL (0-450) H 11/27/19 12:22 Total Protein 6.4 g/dL (6.3-8.2) 12/08/19 10:00 Albumin 3.3 g/dL (3.9-5) L 12/08/19 10:00 Albumin/Globulin Ratio 1.1 % 12/08/19 10:00 Triglycerides 216 mg/dL (2-149) H 11/30/19 04:30 Procalcitonin 0.06 ng/mL (<0.15) 12/07/19 05:42 Arterial Blood Glucose 167 mg/dL (65-95) H 11/30/19 04:40 Arterial Blood Ionized Calcium 4.4 mg/dL (4.6-5.3) L 11/30/19 04:40 Salicylates < 0.3 mg/dL (2.8-20.0) L 11/27/19 12:08 Acetaminophen 5.0 ug/mL (10.0-30.0) L 11/27/19 12:08 Valproic Acid 64.7 ug/mL (50-100) 11/27/19 12:08 Coronavirus (PCR) Negative (Negative) 12/08/19 07:08 - Diagnostic Impressions Diagnostic Impressions: Echocardiogram 11/27/19 19:28 Transthoracic Echocardiogram Indication: SOB BP: 124/71 HR: 75 Conclusions *EF 55-60% *TR JET INADEQUATE TO DETERMINE RVSP *RV ENLARGEMENT DYSFUNCTION Findings Left Ventricle: The left ventricular chamber size is normal. Global left ventricular systolic function is normal. The estimated ejection fraction is 55-60%. Abnormal left ventricular diastolic filling is observed, consistent with impaired relaxation. Left Atrium: The left atrial chamber size is normal. Right Ventricle: The right ventricle is mildly dilated. The right ventricular global systolic function is moderately reduced. Right Atrium: The right atrial cavity size is normal. Aortic Valve: The aortic valve leaflets are mildly thickened. There is no evidence of aortic regurgitation. Mitral Valve: The mitral valve leaflets appear normal. There is no evidence of mitral regurgitation. Tricuspid Valve: There is no evidence of tricuspid valve regurgitation. Pulmonic Valve: The pulmonic valve is not well visualized. Pericardium: There is no pericardial effusion. Aorta: The aorta appears normal. Measurements Chambers 2D Name Value Normal Range IVSd (2D) 1.07 cm (0.6 - 1.1) LVPWd (2D) 0.96 cm (0.6 - 1.1) LVIDd (2D) 4.93 cm (3.7 - 5.6) LVIDs (2D) 4.08 cm (2 - 3.8) LV FS (2D) 17.21 % - Ao root diameter (2D) 3.72 cm (2 - 3.7) Volumes/Mass Name Value Normal Range LA ESV SP 4CH (A/L) 20.87 ml - LA ESV SP 2CH (A/L) 41 ml - LA ESV BP (A/L) 30.22 ml - LA ESV BP (A/L) index 14.96 ml/m2 - LA ESV SP 4CH (MOD) 21.34 ml - LA ESV SP 2CH (MOD) 40.04 ml - LA ESV BP (MOD) 29.33 ml - LA ESV BP (MOD) index 14.52 ml/m2 - Diastolic/Systolic Function Name Value Normal Range MV E-wave Vmax 0.48 m/sec - MV deceleration time 268.38 msec - MV A-wave Vmax 0.56 m/sec - MV E:A ratio 0.86 ratio - Aortic Valve Name Value Normal Range AV Vmax 1.22 m/sec - AV VTI 22.32 cm - AV peak gradient 5.99 mmHg - AV mean gradient 3.69 mmHg - LVOT diameter 2.65 cm - LVOT Vmax 0.73 m/sec - LVOT VTI 13.52 cm - LVOT peak gradient 2.13 mmHg - LVOT mean gradient 1.22 mmHg - SV LVOT 74.61 ml - AGNES (continuity Vmax) 3.29 cm2 - AGNES (continuity VTI) 3.34 cm2 - Tricuspid Valve Name Value Normal Range RAP 3 mmHg - IVC diameter 2.23 cm (1.2 - 2.3) Pulmonic Valve/Qp:Qs Name Value Normal Range PV acceleration time 98.95 msec - Cohen/IV: Voiding Method Condom Catheter IV Catheter Type [Left Forearm INT / Saline Lock ] IV Catheter Type [Right INT / Saline Lock Antecubital] IV Catheter Type [Left Wrist] INT / Saline Lock IV Catheter Type [Right Wrist] INT / Saline Lock IV Catheter Type [Left INT / Saline Lock Antecubital] IV Catheter Type [Right Hand] INT / Saline Lock Active Medications - Current Medications Current Medications: Generic Name Dose Route Start Last Admin Trade Name Freq PRN Reason Stop Dose Admin Acetaminophen 650 mg 11/27/19 19:22 11/29/19 23:20 Tylenol PO 650 mg Q4H PRN Administration Pain MILD(1-3)/Fever >100.5/DIXON Albuterol/Ipratropium 1 ampul 11/27/19 19:24 11/28/19 02:00 Duoneb *Not For Prn Use* IH 1 ampul Q3H PRN Administration Wheezing Albuterol/Ipratropium 1 ampul 11/27/19 20:00 12/12/19 12:46 Duoneb *Not For Prn Use* IH 1 ampul QIDRT AYAKA Administration Lipase/Protease/Amylase 1 each 11/29/19 12:44 [place] 10,500 Unit FEEDTUBE PRN PRN For Clogged Feeding Tube Apixaban 5 mg 12/07/19 22:00 12/12/19 10:51 Eliquis PO 5 mg Q12HR AYAKA Administration Protocol Budesonide 0.5 mg 12/06/19 10:00 12/12/19 08:44 Pulmicort IH 0.5 mg Q12HRT AYAKA Administration Carvedilol 3.125 mg 11/30/19 22:00 12/12/19 09:30 Coreg PO Not Given BID AYAKA Famotidine 20 mg 11/29/19 10:00 12/12/19 10:51 Pepcid PO 20 mg BID AYAKA Administration Furosemide 40 mg 12/12/19 06:00 12/12/19 06:07 Lasix PO 40 mg DAILY@0600 AYAKA Administration Lisinopril 2.5 mg 12/01/19 10:00 12/12/19 09:31 Zestril PO Not Given QDAY AYAKA Morphine Sulfate 2 mg 11/27/19 19:22 12/09/19 21:22 Morphine IV 2 mg Q4H PRN Administration Pain, Moderate (4-6) Olanzapine 20 mg 11/27/19 22:00 12/11/19 21:38 Zyprexa PO 20 mg HS AYAKA Administration Olanzapine 10 mg 11/30/19 11:00 12/12/19 10:52 Zyprexa PO 10 mg DAILY AYAKA Administration Ondansetron HCl 4 mg 11/27/19 19:22 Zofran IV Q3H PRN Nausea And Vomiting Simple Syrup 15 ml 11/29/19 12:44 Simple Syrup FEEDTUBE PRN PRN Hypoglycemia Simple Syrup 30 ml 11/29/19 12:44 Simple Syrup FEEDTUBE PRN PRN Hypoglycemia Sodium Bicarbonate 325 mg 11/29/19 12:44 Sodium Bicarbonate FEEDTUBE PRN PRN For Clogged Feeding Tube Sodium Chloride 10 ml 11/27/19 22:00 12/12/19 10:57 Sodium Chloride Flush Syringe 10 Ml IV 10 ml BID AYAKA Administration Sodium Chloride 10 ml 11/27/19 19:22 12/04/19 05:50 Sodium Chloride Flush Syringe 10 Ml IV 10 ml PRN PRN Administration LINE FLUSH Valproic Acid 250 mg 11/29/19 10:00 12/12/19 10:52 Depakene Liq FEEDTUBE 250 mg BID AYAKA Administration Nutrition/Malnutrition Assess - Dietary Evaluation Nutrition/Malnutrition Findings: Nutrition Notes Start: 11/29/19 12:28 Freq: Status: Active Protocol: Document 12/07/19 13:36 TAY (Rec: 12/07/19 13:41 TAY [id number]) Co-Sign 12/07/19 13:36 LM Nutrition Notes Initial or Follow up Reassessment Current Diagnosis Coronary Artery Disease, Hypertension,Heart Failure Other Pertinent Diagnosis Acute respiratory failure Current Diet Pureed cardiac Labs/Tests BUN 74 Pertinent Medications Reviewed Height 6 ft 1 in Weight 154.221 kg [place] Body Weight (kg) 83.63 BMI 44.9 Weight Status Morbidly Obese Subjective/Other Information F/U for diet advancement. Pt receiving pureed cardiac diet. Per RN, pt consuming 100%. Percent of energy/protein needs met: 90%/61% Burn Absent Trauma Absent GI Symptoms None Current % PO Negligible Minimum of two criteria No physical signs of malnutrition #1 Nutrition Diagnosis Inadequate oral intake As Evidenced by Signs and Symptoms Pt consuming 100% pureed diet Diagnosis Progress(for reassessment Improved documentation) Is patient on ventilator? No Is Patient Ambulatory and/or Out of Bed No REE-([facility]-confined to bed) 2962.056 Kcal/Kg value to use for calculation 13 Approximate Energy Requirements Using 2005 kcal/Kg Calculation Used for Recommendations Kcal/kg Additional Notes Pro: 125-155 g (.8-1.0 g/kg ABW) Fluid: 1 ml/kcal Nutrition Intervention Change Diet Order: Advance diet when medically feasible Goal #1 Diet advancement when medically feasible. Goal #2 Meet at least 75% energy and protein needs Anticipated Discharge Needs: Cardiac diet Follow-Up By: 12/14/19 Additional Comments F/U for intakes and diet advancement
--- NOTE | 2019-12-12 13:09 | Discharge Summary ---
Providers - Providers Date of Admission: 11/27/19 12:57 Date of discharge: 12/12/19 Attending physician: NITHYA ESCALERA 11/27/19 12:57 Consult to Physician [CONS] Urgent Comment: called answ./ eliza Consulting Provider: SARAH BETH LARIOS Physician Instructions: Reason For Exam: hypoxia suspected covid 11/27/19 19:29 Consult to Physician [CONS] Routine Comment: called ans. serv./ eliza Consulting Provider: MANUEL HURTADO Physician Instructions: Reason For Exam: CHF exacerbation 11/27/19 21:14 Consult to Physician [CONS] Routine Comment: called answ. serv./ eliza Consulting Provider: ROMEO CRAWFORD Physician Instructions: Reason For Exam: Acute respiratory failure with hypoxia 12/03/19 13:15 Speech Therapy Evaluation and Treat [CONS] Routine Reason For Exam: failed bedside swallowing screen 12/06/19 11:20 Consult to Wound/ET Nurse [CONS] Routine Reason For Exam: wound eval 12/08/19 11:16 Physical Therapy Evaluation and Treat [CONS] Routine Comment: Reason For Exam: Debility 12/09/19 07:59 Consult to Case Management [CONS] Routine Services Needed at Discharge: DME Equipment Home O2 Notified:: Case management 12/09/19 09:43 Occupational Therapy Evaluate and Treat [CONS] Routine Comment: Reason For Exam: adl 12/09/19 17:19 psychiatry consult [Consult to Mental Health] [CONS] Routine Reason For Exam: Psychosis Primary care physician: MIMI WELCH NP Hospitalization Condition: Serious Hospital course: 49-year-old male with a medical history of psychiatric problems on valproic acid presented to the hospital on 11/26 with cough, weakness, malaise and fatigue. He was also having shortness of breath. Here in the ER, patient was noted to be hypoxic and he was placed on a BiPAP with slight improvement. Patient was subsequently admitted to the hospital with differentials of COPD exacerbation, acute exacerbation of congestive heart failure, possible Covid pneumonia. Patient was intubated for respiratory failure. Cardiology, pulmonology and ID on board. COVID-19 test performed showed negative results. 11/28 -11/29. Negative COVID-19 test. Remains intubated. Patient getting diuresed 11/30. 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 12/01. Patient found to have PE started on Lovenox. Patient was extubated to BiPAP. Patient was extubated on 12/03/2019 patient transferred to floor on 12/04/2019 patient continues to be in mild respiratory distress patient able to walk to the restroom slightly agitated has a new sacral area redness but no open wound see wound care notes. 12/06. His steroids have been tapered. He is still on Lasix 40 mg IV twice daily. Cardiology is following closely. Currently patient is on 60% of oxygen. Patient needs to use BiPAP at night. Plan to follow-up with pulmonology in the office for sleep study and pulmonary function test. Anticoagulation switch to Eliquis 5 mg twice daily. Procalcitonin ordered to rule out possible infection but increased WBC could be as a result of steroid administration. 12/07. Still on 60-65% oxygen. Pulmonology following. Procalcitonin negative. 12/08. Patient has refused to keep his oxygen on today. Had episode of agitation today as per RN. Patient remained calm during my encounter this p.m. patient seen without oxygen on advancing to keep his oxygen on. Discussed with patient's family [Courtney] 12/09. He is calm today - still refuses oxygen but his oxygen has been holding above 90 in RA> See walk test. Has a history of psych issues. Has been seen by psych. He will need to go to LT[facility] when accepted. 12/10. Not requiring oxygen. On tapering doses of steroids. Switch lasix to PO. Does not qualify for LTAC. Will dc home. 12/11. Discussed with Janett (patients sister) about plan for DC. He is improving and is stable to be discharged. Awaiting call back from [facility]. Needs a walk test. Disposition: DC-01 TO HOME OR SELFCARE - Discharge Diagnoses (1) Acute exacerbation of CHF (congestive heart failure) Status: Acute Qualifiers: Heart failure type: combined systolic and diastolic Qualified Code(s): I50.43 - Acute on chronic combined systolic (congestive) and diastolic (congestive) heart failure (2) Acute hypoxemic respiratory failure Status: Acute (3) Acute pulmonary embolism Status: Acute (4) Acute respiratory acidosis Status: Acute (5) Hypercapnic respiratory failure Status: Acute Qualifiers: Chronicity: acute on chronic Qualified Code(s): J96.22 - Acute and chronic respiratory failure with hypercapnia Core Measure Documentation - Palliative Care Palliative Care/ Comfort Measures: Not Applicable - Core Measures Any of the following diagnoses?: none Exam - Physical Exam Narrative exam: VITAL SIGNS: Reviewed. GENERAL: Awake and alert and responds to questions HEAD: No signs of head trauma. EYES: Pupils are equal. Extraocular motions intact. EARS: Hearing grossly intact. MOUTH: Oropharynx is normal. NECK: No adenopathy, no JVD. CHEST: Improved bilateral wheeze CARDIAC: Regular rate and rhythm. S1 and S2, without murmurs, gallops, or rubs. VASCULAR: No Edema. Peripheral pulses normal and equal in all extremities. ABDOMEN: Soft, non tender and non distended. No rebound or guarding, and no masses palpated. Bowel Sounds normal. MUSCULOSKELETAL: Good range of motion of all major joints. Extremities without clubbing, cyanosis or edema. NEUROLOGIC EXAM: Alert and oriented x3. No focal neurologic deficits PSYCHIATRIC: Stable mood SKIN: No obvious lesions - Constitutional Vitals: Temp Pulse Resp BP Pulse Ox 98.4 F 83 20 89/56 96 12/12/19 12:13 12/12/19 12:48 12/12/19 12:48 12/12/19 12:13 12/12/19 12:13 Plan Activity: no restrictions Diet: low fat, low cholesterol, low salt Additional Instructions: Prednisone taper as follows - 40mg for 4 days, 20 mg for 4 days then 10mg for 4 days and stop. Continue rest of medications ordered. Follow up with cardiology in the office. Follow up with psychiatry in the office Follow up with: DR REBEKAH [Other] - 3-5 Days BENEDICT RAND MD [Staff Physician] - 7 Days ROMEO CRAWFORD MD [Staff Physician] - 7 Days Prescriptions: carvediloL [Coreg] 3.125 mg PO BID #60 tablet predniSONE [Deltasone] 10 mg PO QDAY #4 tab predniSONE [Deltasone] 40 mg PO QDAY #3 tablet predniSONE [Deltasone] 20 mg PO QDAY #4 tab Depakote ER 250 mg PO BID #30 Apixaban [Eliquis] 5 mg PO Q12HR #60 tablet Furosemide [Lasix TAB] 40 mg PO DAILY@0600 #30 tablet Famotidine [Pepcid] 20 mg PO BID #30 tablet lisinopriL [Zestril TAB] 2.5 mg PO QDAY #30 tablet
[2019-12-12] MEDS ORDERED: predniSONE 20 MG TAB PO SCH (14:00)
--- NOTE | 2019-12-12 15:12 | Progress Note ---
Assessment and Plan - Patient Problems (1) Acute pulmonary embolism Current Visit: Yes Status: Acute Plan to address problem: Continue Eliquis for oral anticoagulation in the setting of acute pulmonary embolism. Subjective Date of service: 12/12/19 Principal diagnosis: Acute respiratory failure with hypoxia, COPD/CHF exacerbation Interval history: Patient is comfortable, no new cardiac complaints. Objective Vital Signs Temp Pulse Pulse Resp Resp BP BP 12/12/19 12:48 83 20 12/12/19 12:13 98.4 F 92 H 20 89/56 12/12/19 09:30 79 102/65 12/12/19 08:46 95 H 20 12/12/19 08:45 12/12/19 07:40 97.9 F 79 20 102/65 12/12/19 06:56 97.3 F L 80 20 100/69 12/12/19 00:39 75 20 109/70 12/11/19 19:30 98.5 F 93 H 20 114/65 12/11/19 16:22 87 22 12/11/19 15:48 97.6 F 78 20 103/70 Pulse Ox 12/12/19 12:48 12/12/19 12:13 96 12/12/19 09:30 12/12/19 08:46 12/12/19 08:45 92 12/12/19 07:40 89 12/12/19 06:56 93 12/12/19 00:39 95 12/11/19 19:30 94 12/11/19 16:22 12/11/19 15:48 95 - Physical Examination General: No Apparent Distress HEENT: Positive: PERRL Neck: Positive: neck supple Cardiac: Positive: Reg Rate and Rhythm Lungs: Positive: Decreased Breath Sounds Neuro: Positive: Grossly Intact Abdomen: Positive: Soft Skin: Positive: Clear Extremities: Absent: edema
[2019-12-12 17:29] VITALS: BP 95/64
== END 2019-12-12 20:00 | disposition home or self-care (01) | DRG 870 ==
LOC: ED 10:51 → IMCU 12:57 → 4A 12-04 23:01
PROVIDERS: ADMIT Internal Medicine; ATTEND Internal Medicine
PROC: 5A1955Z Respiratory Ventilation, Greater than 96 Consecutive Hours (ICD-10-PCS; principal; 2019-11-27)
PROC: 0BH17EZ Insertion of Endotracheal Airway into Trachea, Via Natural or Artificial Opening (ICD-10-PCS; 2019-11-27)
PROC: 4A033R1 Measurement of Arterial Saturation, Peripheral, Percutaneous Approach (ICD-10-PCS; 2019-11-28)
DX: A41.9 Sepsis, unspecified organism (principal); J18.9 Pneumonia, unspecified organism; I50.43 Acute on chronic combined systolic (congestive) and diastolic (congestive) heart failure; J96.22 Acute and chronic respiratory failure with hypercapnia; J96.21 Acute and chronic respiratory failure with hypoxia; I26.99 Other pulmonary embolism without acute cor pulmonale; E87.2 Acidosis; J44.1 Chronic obstructive pulmonary disease with (acute) exacerbation; J44.0 Chronic obstructive pulmonary disease with (acute) lower respiratory infection; F23 Brief psychotic disorder; Z20.828 Contact with and (suspected) exposure to other viral communicable diseases; R65.20 Severe sepsis without septic shock; E66.01 Morbid (severe) obesity due to excess calories; E87.5 Hyperkalemia; B95.3 Streptococcus pneumoniae as the cause of diseases classified elsewhere; I11.0 Hypertensive heart disease with heart failure; F17.200 Nicotine dependence, unspecified, uncomplicated; I25.10 Atherosclerotic heart disease of native coronary artery without angina pectoris; R79.89 Other specified abnormal findings of blood chemistry; Z95.5 Presence of coronary angioplasty implant and graft; R74.01 Elevation of levels of liver transaminase levels; Z68.29 Body mass index [BMI] 29.0-29.9, adult
CPT/HCPCS: 31500; 36415; 36600; 71045; 71275; 80048; 80053; 80164; 80320; 82140; 82550; 82728; 82803; 82805; 82962; 83036; 83615; 83735; 83880; 84145; 84478; 85007; 85025; 85027; 85379; 85610; 86140; 87040; 87070; 87076; 87186; 87205; 90471; 93005; 93306; 94002; 94003; 94640; 94660; 94760; G0378; G0480; J0456; J0610; J0696; J1100; J1170; J1644; J1650; J1940; J2060; J2250; J2270; J2704; J2930; J3010; J7040; J7050; J7512; Q9967; U0003

== ENCOUNTER 2020-08-21 15:07 | Inpatient (IN) | payer MEDICARE ==
--- NOTE | 2020-08-21 15:42 | XRay Report ---
CHEST 1 VIEW 08/21/2020 3:12 PM INDICATION / CLINICAL INFORMATION: SOB. COMPARISON: 12/01/19 FINDINGS: SUPPORT DEVICES: None. HEART / MEDIASTINUM: No significant abnormality. LUNGS / PLEURA: Hazy density over the right mid to lower lung may represent early infiltrate such as pneumonia. No pneumothorax. ADDITIONAL FINDINGS: Ossified bodies in the left coracoid recess of the left shoulder are unchanged. IMPRESSION: 1. Possible left lung pneumonia. Signer Name: Angelita Schaffer MD Signed: 08/21/2020 3:38 PM Workstation Name: [id number]
[2020-08-21 16:06] LABS: Basophils % (Auto) 0.3 % (0.0-1.8); Hematocrit 46.9 % (35.5-45.6); Hemoglobin 15.7 gm/dl (11.8-15.2); Mean Corpuscular HGB Conc 33 % (32-34); Mean Corpuscular Volume 95 fl (84-94); Monocytes # (Auto) 1.7 K/mm3 (0.0-0.8); Monocytes % (Auto) 15.8 % (0.0-7.3); Red Blood Count 4.96 M/mm3 (3.65-5.03); Red Cell Distribution Width 13.7 % (13.2-15.2)
[2020-08-21 16:11] LABS: Platelet Count 84 K/mm3 (140-440)
[2020-08-21 16:12] LABS: Albumin 3.3 g/dL (3.9-5); Calcium 8.3 mg/dL (8.4-10.2)
--- NOTE | 2020-08-21 16:16 | Emergency Department Report ---
HPI - General Time Seen by Provider: 08/21/20 15:12 - HPI HPI: This is a 49-year-old male presents to the emergency department via EMS from [place]. EMS was called by the restaurant expeditor who says that his oxygen saturation was down in the 40s initially. EMS found him to have a an oxygen saturation in the 70s on 2 L via nasal cannula. Initially he was placed on 6 L via nasal cannula and went up into the mid 80s. He was then placed on CPAP and went up to about 92%. He has a history of hypertension, CHF, COPD and has been here previously for hypercapnic respiratory failure. The patient is currently a poor historian secondary to his current medical condition. ED Past Medical Hx - Past Medical History Previous Medical History?: Yes Hx Hypertension: Yes Hx Congestive Heart Failure: Yes Hx COPD: Yes - Surgical History Past Surgical History?: Yes Hx Coronary Stent: Yes Hx Open Heart Surgery: Yes Additional Surgical History: Back - Social History Smoking Status: Current Every Day Smoker Substance Use Type: None - Medications Home Medications: Home Medications Medication Instructions Recorded Confirmed Last Taken Type Vistaril 25 mg PO TID 11/27/19 11/27/19 Unknown History ZyPREXA 10 mg PO DAILY 11/27/19 11/27/19 Unknown History ZyPREXA 20 mg PO HS 11/27/19 11/27/19 Unknown History Apixaban [Eliquis] 5 mg PO Q12HR #60 tablet 12/12/19 Unknown Rx Depakote ER 250 mg PO BID #30 12/12/19 Unknown Rx Famotidine [Pepcid] 20 mg PO BID #30 tablet 12/12/19 Unknown Rx Furosemide [Lasix TAB] 40 mg PO DAILY@0600 #30 tablet 12/12/19 Unknown Rx carvediloL [Coreg] 3.125 mg PO BID #60 tablet 12/12/19 Unknown Rx lisinopriL [Zestril TAB] 2.5 mg PO QDAY #30 tablet 12/12/19 Unknown Rx predniSONE 10 mg PO QDAY #4 tab 12/12/19 Unknown Rx predniSONE [Deltasone] 20 mg PO QDAY #4 tab 12/12/19 Unknown Rx predniSONE [Deltasone] 40 mg PO QDAY #3 tablet 12/12/19 Unknown Rx ED Review of Systems ROS: Stated complaint: KALLIE Other details as noted in HPI Comment: Unobtainable due to pts medical conditions Physical Exam - Physical Exam Vital Signs: Vital Signs 08/21/20 08/21/20 08/21/20 15:10 15:14 15:17 Temperature 97.0 F L Pulse Rate 95 H 92 H Respiratory 24 24 20 Rate Blood Pressure 93/68 O2 Sat by Pulse 99 Oximetry 08/21/20 15:23 Temperature Pulse Rate 90 Respiratory 24 Rate Blood Pressure O2 Sat by Pulse 98 Oximetry Physical Exam: GENERAL: The patient is ill-appearing. HENT: Normocephalic. Atraumatic. Patient has moist mucous membranes. EYES: Pupils equal reactive to light bilaterally. NECK: Supple. Trachea is midline. CHEST/LUNGS: There are crackles heard bilaterally. Tachypnea and accessory muscle use. HEART/CARDIOVASCULAR: Regular. There is no tachycardia. There is no murmur. ABDOMEN: Abdomen is soft, nontender. Patient has normal bowel sounds. There is no abdominal distention. SKIN: Skin is warm and dry. NEURO: Patient is very sleepy but is arousable to verbal and tactile stimuli. He will go right back to sleep if not continuously stimulated. Cranial nerves II through XII grossly intact. No facial asymmetry. MUSCULOSKELETAL: There is no tenderness or deformity. There is no limitation ra nge of motion. ED Course Vital Signs 08/21/20 08/21/20 08/21/20 15:10 15:14 15:17 Temperature 97.0 F L Pulse Rate 95 H 92 H Respiratory 24 24 20 Rate Blood Pressure 93/68 O2 Sat by Pulse 99 Oximetry 08/21/20 15:23 Temperature Pulse Rate 90 Respiratory 24 Rate Blood Pressure O2 Sat by Pulse 98 Oximetry - ABG Interpretation Ph: 7.395 PCO2: 57 PO2: 178 Bicarbonate: 34 Interpretation: respiratory acidosis, metabolic alkalosis ED Medical Decision Making - Lab Data Result diagrams: 08/21/20 15:30 08/21/20 15:30 Lab Results 08/21/20 08/21/20 08/21/20 Range/Units 15:13 15:30 15:30 WBC (4.5-11.0) K/mm3 RBC (3.65-5.03) M/mm3 Hgb (11.8-15.2) gm/dl Hct (35.5-45.6) % MCV (84-94) fl MCH (28-32) pg MCHC (32-34) % RDW (13.2-15.2) % Plt Count (140-440) K/mm3 Lymph % (Auto) (13.4-35.0) % [place] % (Auto) (0.0-7.3) % Eos % (Auto) (0.0-4.3) % Baso % (Auto) (0.0-1.8) % Lymph # (Auto) (1.2-5.4) K/mm3 [place] # (Auto) (0.0-0.8) K/mm3 Eos # (Auto) (0.0-0.4) K/mm3 Baso # (Auto) (0.0-0.1) K/mm3 Seg Neutrophils % (40.0-70.0) % Seg Neutrophils # (1.8-7.7) K/mm3 PT (12.2-14.9) Sec. INR (0.87-1.13) APTT (24.2-36.6) Sec. ABG pH 7.395 (7.320-7.450) POC ABG pCO2 57.9 H (32.0-48.0) mmHg POC ABG pO2 178.0 H (83-108) mmHg POC ABG HCO3 34.7 ABG O2 Saturation 99.2 (0-100) POC ABG Base Excess 7.5 ABG Hemoglobin 16.1 (12.0-17.5) ABG Oxyhemoglobin 94.6 (94-98) ABG Methemoglobin 0.3 (0.0-1.5) ABG Sodium 134.2 L (136.0-145.0) mmol/L ABG Potassium 5.1 H (3.40-4.50) mmol/L ABG Chloride 96.0 L (98-107) mmol/L ABG Glucose 94 (65-95) mg/dL Carboxyhemoglobin 4.3 H (0.5-1.5) FiO2 % 65.0 Sodium 140 (137-145) mmol/L Potassium 4.4 (3.6-5.0) mmol/L Chloride 92.2 L (98-107) mmol/L Carbon Dioxide 34 H (22-30) mmol/L Anion Gap 18 mmol/L BUN 47 H (9-20) mg/dL Creatinine 3.2 H (0.8-1.3) mg/dL Estimated GFR 21 ml/min BUN/Creatinine Ratio 15 % Glucose 102 H (75-100) mg/dL Lactic Acid 1.30 (0.7-2.0) mmol/L Calcium 8.3 L (8.4-10.2) mg/dL Total Bilirubin 0.40 (0.1-1.2) mg/dL AST 49 H (5-40) units/L ALT 24 (7-56) units/L Alkaline Phosphatase 70 (35-129) units/L Troponin T (0.00-0.029) ng/mL NT-Pro-B Natriuret Pep (0-450) pg/mL Total Protein 6.3 (6.3-8.2) g/dL Albumin 3.3 L (3.9-5) g/dL Albumin/Globulin Ratio 1.1 % Triglycerides (2-149) mg/dL Cholesterol (50-199) mg/dL LDL Cholesterol Direct (50-130) mg/dL HDL Cholesterol (40-59) mg/dL Cholesterol/HDL Ratio % Arterial Blood Glucose 94 (65-95) mg/dL Arterial Blood Ionized Calcium 4.0 L (4.6-5.3) mg/dL 08/21/20 08/21/20 08/21/20 Range/Units 15:30 15:30 15:30 WBC 10.6 (4.5-11.0) K/mm3 RBC 4.96 (3.65-5.03) M/mm3 Hgb 15.7 H (11.8-15.2) gm/dl Hct 46.9 H (35.5-45.6) % MCV 95 H (84-94) fl MCH 32 (28-32) pg MCHC 33 (32-34) % RDW 13.7 (13.2-15.2) % Plt Count 84 L (140-440) K/mm3 Lymph % (Auto) 9.0 L (13.4-35.0) % [place] % (Auto) 15.8 H (0.0-7.3) % Eos % (Auto) 0.0 (0.0-4.3) % Baso % (Auto) 0.3 (0.0-1.8) % Lymph # (Auto) 1.0 L (1.2-5.4) K/mm3 [place] # (Auto) 1.7 H (0.0-0.8) K/mm3 Eos # (Auto) 0.0 (0.0-0.4) K/mm3 Baso # (Auto) 0.0 (0.0-0.1) K/mm3 Seg Neutrophils % 74.9 H (40.0-70.0) % Seg Neutrophils # 7.9 H (1.8-7.7) K/mm3 PT 17.4 H (12.2-14.9) Sec. INR 1.37 H (0.87-1.13) APTT 31.3 (24.2-36.6) Sec. ABG pH (7.320-7.450) POC ABG pCO2 (32.0-48.0) mmHg POC ABG pO2 (83-108) mmHg POC ABG HCO3 ABG O2 Saturation (0-100) POC ABG Base Excess ABG Hemoglobin (12.0-17.5) ABG Oxyhemoglobin (94-98) ABG Methemoglobin (0.0-1.5) ABG Sodium (136.0-145.0) mmol/L ABG Potassium (3.40-4.50) mmol/L ABG Chloride (98-107) mmol/L ABG Glucose (65-95) mg/dL Carboxyhemoglobin (0.5-1.5) FiO2 % Sodium (137-145) mmol/L Potassium (3.6-5.0) mmol/L Chloride (98-107) mmol/L Carbon Dioxide (22-30) mmol/L Anion Gap mmol/L BUN (9-20) mg/dL Creatinine (0.8-1.3) mg/dL Estimated GFR ml/min BUN/Creatinine Ratio % Glucose (75-100) mg/dL Lactic Acid (0.7-2.0) mmol/L Calcium (8.4-10.2) mg/dL Total Bilirubin (0.1-1.2) mg/dL AST (5-40) units/L ALT (7-56) units/L Alkaline Phosphatase (35-129) units/L Troponin T 0.053 H (0.00-0.029) ng/mL NT-Pro-B Natriuret Pep [id number] H (0-450) pg/mL Total Protein (6.3-8.2) g/dL Albumin (3.9-5) g/dL Albumin/Globulin Ratio % Triglycerides 123 (2-149) mg/dL Cholesterol 137 (50-199) mg/dL LDL Cholesterol Direct 76 (50-130) mg/dL HDL Cholesterol 35 L (40-59) mg/dL Cholesterol/HDL Ratio 3.91 % Arterial Blood Glucose (65-95) mg/dL Arterial Blood Ionized Calcium (4.6-5.3) mg/dL - EKG Data -: EKG Interpreted by Me EKG shows normal: sinus rhythm, axis (Left axis deviation), intervals, QRS complexes (Left anterior fascicular block, LVH), ST-T waves Rate: normal - EKG Data When compared to previous EKG there are: no significant change Interpretation: unchanged when compared t (11/27/19) - Radiology Data Radiology results: image reviewed interpreted by me: CHEST 1 VIEW 08/21/2020 3:12 PM INDICATION / CLINICAL INFORMATION: SOB. COMPARISON: 12/01/19 FINDINGS: SUPPORT DEVICES: None. HEART / MEDIASTINUM: No significant abnormality. LUNGS / PLEURA: Hazy density over the right mid to lower lung may represent early infiltrate such as pneumonia. No pneumothorax. ADDITIONAL FINDINGS: Ossified bodies in the left coracoid recess of the left shoulder are unchanged. IMPRESSION: 1. Possible left lung pneumonia. - Medical Decision Making This patient presents to the emergency department from [place] with hypoxia and shortness of breath. Allegedly he was 40% on room air. He was about 70% on 2 L when seen by EMS. Then he was in the 80s on 6 L and then eventually in the 90s when placed on CPAP. Initially the patient presents altered. He is arousable to verbal and tactile stimuli but will go right back to sleep if not c ontinuously stimulated. I had concern for hypercapnic encephalopathy. The patient required BiPAP anyways due to his increased work of breathing and some hypoxia. Blood gas shows respiratory acidosis with a PCO2 of 57 and some metabolic alkalosis with a bicarb of 34. Chest x-ray shows concern for a left-sided opacity read by radiology is concern for pneumonia. Blood culture sent and the patient has been given IV antibiotics. Given the hypoxia, shortness of breath, concern for pneumonia, the patient has been made a PUI and placed in droplet precautions and patient isolation. Patient's labs shows elevation in his INR, acute renal failure, elevated troponin, and a very elevated proBNP. The patient's hypercapnic and hypoxemic respiratory failure could be consistent with his COPD, could be related to COVID-19 infection. Patient also has a history of CHF with a very elevated proBNP. However, chest x-ray does not show any excessive volume overload and the patient's blood pressure would not tolerate diuresis at this time. With the patient removed his BiPAP, which he has done twice thus far, his oxygen saturation plummets. He will be admitted to the [facility] for further evaluation a nd treatment and was accepted for admission by the hospitalist, Dr. [place]. Critical Care Time: Yes Critical care time in (mins) excluding proc time.: 40 Critical care attestation.: If time is entered above; I have spent that time in minutes in the direct care of this critically ill patient, excluding procedure time. Critical care time spent on this patient doing his initial evaluation, multiple reevaluations, ordering and interpretation of labs and imaging, titration of the BiPAP for respiratory support, IV antibiotics. Critical Care Time: 40 minutes ED Disposition Clinical Impression: Suspected 2019 novel coronavirus infection, Acute hypoxemic respiratory failure Acute respiratory failure Qualifiers: Respiratory failure complication: hypoxia and hypercapnia Qualified Code(s): J96.01 - Acute respiratory failure with hypoxia; J96.02 - Acute respiratory failure with hypercapnia Acute renal failure Qualifiers: Acute renal failure type: unspecified Qualified Code(s): N17.9 - Acute kidney f ailure, unspecified Acute exacerbation of CHF (congestive heart failure) Qualifiers: Heart failure type: unspecified Qualified Code(s): I50.9 - Heart failure, unspecified Pneumonia Qualifiers: Pneumonia type: due to unspecified organism Laterality: left Lung location: unspecified part of lung Qualified Code(s): J18.9 - Pneumonia, unspecified organism Disposition: OP ADMIT IP TO THIS HOSP Is pt being admited?: Yes Condition: Serious Time of Disposition: 17:44
[2020-08-21 16:17] LABS: INR 1.37 (0.87-1.13)
[2020-08-21 16:18] LABS: Partial Thromboplastin Time 31.3 Sec. (24.2-36.6)
[2020-08-21 16:31] LABS: Chol/HDL Ratio 3.91 %
[2020-08-21] MEDS ORDERED: cefTRIAXone/NS 1 GM/50 ML 1 GM/50 ML BAG IV ONE (17:16)
[2020-08-21] MEDS ORDERED: AZITHROMYCIN/NS 500 MG/250 ML 500 MG/250 ML BAG IV ONE (17:21)
[2020-08-21 18:18] LABS: C-Reactive Protein 18.9 mg/dL (0.00-1.30)
--- NOTE | 2020-08-22 08:10 | History and Physical Report ---
History of Present Illness Date of examination: 08/21/20 Date of admission: 08/21/20 17:45 Chief complaint: Shortness of breath for 1 day History of present illness: This is a 49-year-old male presents to the emergency department via EMS from [address]. EMS was called by the speech language therapist who says that his oxygen saturation was down in the 40s initially. EMS found him to have a an oxygen saturation in the 70s on 2 L via nasal cannula. Initially he was placed on 6 L via nasal cannula and went up into the mid 80s. He was then placed on CPAP and went up to about 92%. He has a history of hypertension, CHF, COPD and has been here previously for hypercapnic respiratory failure. The patient is currently a poor historian secondary to his current medical condition. - Past Medical History Previous Medical History?: Yes Hx Hypertension: Yes Hx Congestive Heart Failure: Yes Hx COPD: Yes - Surgical History Past Surgical History?: Yes Hx Coronary Stent: Yes Hx Open Heart Surgery: Yes Additional Surgical History: Back - Social History Smoking Status: Current Every Day Smoker Substance Use Type: None - Medications Home Medications: Home Medications Medication Instructions Recorded Confirmed Last Taken Type Vistaril 25 mg PO TID 11/27/19 11/27/19 Unknown History ZyPREXA 10 mg PO DAILY 11/27/19 11/27/19 Unknown History ZyPREXA 20 mg PO HS 11/27/19 11/27/19 Unknown History Apixaban [Eliquis] 5 mg PO Q12HR #60 tablet 12/12/19 Unknown Rx Depakote ER 250 mg PO BID #30 12/12/19 Unknown Rx Famotidine [Pepcid] 20 mg PO BID #30 tablet 12/12/19 Unknown Rx Furosemide [Lasix TAB] 40 mg PO DAILY@0600 #30 tablet 12/12/19 Unknown Rx carvediloL [Coreg] 3.125 mg PO BID #60 tablet 12/12/19 Unknown Rx lisinopriL [Zestril TAB] 2.5 mg PO QDAY #30 tablet 12/12/19 Unknown Rx predniSONE 10 mg PO QDAY #4 tab 12/12/19 Unknown Rx predniSONE [Deltasone] 20 mg PO QDAY #4 tab 12/12/19 Unknown Rx predniSONE [Deltasone] 40 mg PO QDAY #3 tablet 12/12/19 Unknown Rx Review of Systems ROS: Stated complaint: KALLIE Other details as noted in HPI Comment: Unobtainable due to pts medical conditions Medications and Allergies Allergies Allergy/AdvReac Type Severity Reaction Status Date / Time No Known Allergies Allergy Unverified 11/27/19 11:24 Home Medications Medication Instructions Recorded Confirmed Last Taken Type Vistaril 25 mg PO TID 11/27/19 11/27/19 Unknown History ZyPREXA 10 mg PO DAILY 11/27/19 11/27/19 Unknown History ZyPREXA 20 mg PO HS 11/27/19 11/27/19 Unknown History Apixaban [Eliquis] 5 mg PO Q12HR #60 tablet 12/12/19 Unknown Rx Depakote ER 250 mg PO BID #30 12/12/19 Unknown Rx Famotidine [Pepcid] 20 mg PO BID #30 tablet 12/12/19 Unknown Rx Furosemide [Lasix TAB] 40 mg PO DAILY@0600 #30 tablet 12/12/19 Unknown Rx carvediloL [Coreg] 3.125 mg PO BID #60 tablet 12/12/19 Unknown Rx lisinopriL [Zestril TAB] 2.5 mg PO QDAY #30 tablet 12/12/19 Unknown Rx predniSONE 10 mg PO QDAY #4 tab 12/12/19 Unknown Rx predniSONE [Deltasone] 20 mg PO QDAY #4 tab 12/12/19 Unknown Rx predniSONE [Deltasone] 40 mg PO QDAY #3 tablet 12/12/19 Unknown Rx Exam - Constitutional Vitals: Temp Pulse Resp BP Pulse Ox 98.1 F 79 20 136/74 92 08/22/20 04:30 08/22/20 04:30 08/22/20 04:30 08/22/20 04:30 08/22/20 02:04 HEART Score - HEART Score Troponin: Troponin T 0.045 ng/mL (0.00-0.029) H 08/21/20 20:38 Results - Labs CBC & Chem 7: 08/21/20 15:30 08/21/20 15:30 Labs: Laboratory Last Values WBC 10.6 K/mm3 (4.5-11.0) 08/21/20 15:30 RBC 4.96 M/mm3 (3.65-5.03) 08/21/20 15:30 Hgb 15.7 gm/dl (11.8-15.2) H 08/21/20 15:30 Hct 46.9 % (35.5-45.6) H 08/21/20 15:30 MCV 95 fl (84-94) H 08/21/20 15:30 MCH 32 pg (28-32) 08/21/20 15:30 MCHC 33 % (32-34) 08/21/20 15:30 RDW 13.7 % (13.2-15.2) 08/21/20 15:30 Plt Count 84 K/mm3 (140-440) L 08/21/20 15:30 Lymph % (Auto) 9.0 % (13.4-35.0) L 08/21/20 15:30 [place]eller % (Auto) 15.8 % (0.0-7.3) H 08/21/20 15:30 Eos % (Auto) 0.0 % (0.0-4.3) 08/21/20 15:30 Baso % (Auto) 0.3 % (0.0-1.8) 08/21/20 15:30 Lymph # (Auto) 1.0 K/mm3 (1.2-5.4) L 08/21/20 15:30 Teller # (Auto) 1.7 K/mm3 (0.0-0.8) H 08/21/20 15:30 Eos # (Auto) 0.0 K/mm3 (0.0-0.4) 08/21/20 15:30 Baso # (Auto) 0.0 K/mm3 (0.0-0.1) 08/21/20 15:30 Seg Neutrophils % 74.9 % (40.0-70.0) H 08/21/20 15:30 Seg Neutrophils # 7.9 K/mm3 (1.8-7.7) H 08/21/20 15:30 PT 17.4 Sec. (12.2-14.9) H 08/21/20 15:30 INR 1.37 (0.87-1.13) H 08/21/20 15:30 APTT 31.3 Sec. (24.2-36.6) 08/21/20 15:30 D-Dimer 251.44 ng/mlDDU (0-234) H 08/21/20 17:52 ABG pH 7.395 (7.320-7.450) 08/21/20 15:13 POC ABG pCO2 57.9 mmHg (32.0-48.0) H 08/21/20 15:13 POC ABG pO2 178.0 mmHg (83-108) H 08/21/20 15:13 POC ABG HCO3 34.7 08/21/20 15:13 ABG O2 Saturation 99.2 (0-100) 08/21/20 15:13 POC ABG Base Excess 7.5 08/21/20 15:13 ABG Hemoglobin 16.1 (12.0-17.5) 08/21/20 15:13 ABG Oxyhemoglobin 94.6 (94-98) 08/21/20 15:13 ABG Methemoglobin 0.3 (0.0-1.5) 08/21/20 15:13 ABG Sodium 134.2 mmol/L (136.0-145.0) L 08/21/20 15:13 ABG Potassium 5.1 mmol/L (3.40-4.50) H 08/21/20 15:13 ABG Chloride 96.0 mmol/L (98-107) L 08/21/20 15:13 ABG Glucose 94 mg/dL (65-95) 08/21/20 15:13 Carboxyhemoglobin 4.3 (0.5-1.5) H 08/21/20 15:13 FiO2 % 65.0 08/21/20 15:13 Sodium 140 mmol/L (137-145) 08/21/20 15:30 Potassium 4.4 mmol/L (3.6-5.0) 08/21/20 15:30 Chloride 92.2 mmol/L (98-107) L 08/21/20 15:30 Carbon Dioxide 34 mmol/L (22-30) H 08/21/20 15:30 Anion Gap 18 mmol/L 08/21/20 15:30 BUN 47 mg/dL (9-20) H 08/21/20 15:30 Creatinine 3.2 mg/dL (0.8-1.3) H 08/21/20 15:30 Estimated GFR 21 ml/min 08/21/20 15:30 BUN/Creatinine Ratio 15 % 08/21/20 15:30 Glucose 102 mg/dL (75-100) H 08/21/20 15:30 POC Glucose 83 mg/dL (70-105) 08/22/20 07:49 Lactic Acid 1.30 mmol/L (0.7-2.0) 08/21/20 15:30 Calcium 8.3 mg/dL (8.4-10.2) L 08/21/20 15:30 Total Bilirubin 0.40 mg/dL (0.1-1.2) 08/21/20 15:30 AST 49 units/L (5-40) H 08/21/20 15:30 ALT 24 units/L (7-56) 08/21/20 15:30 Alkaline Phosphatase 70 units/L (35-129) 08/21/20 15:30 Lactate Dehydrogenase 303 units/L (91-180) H 08/21/20 17:52 Troponin T 0.045 ng/mL (0.00-0.029) H 08/21/20 20:38 C-Reactive Protein 18.90 mg/dL (0.00-1.30) H 08/21/20 17:52 NT-Pro-B Natriuret Pep 65717 pg/mL (0-450) H 08/21/20 15:30 Total Protein 6.3 g/dL (6.3-8.2) 08/21/20 15:30 Albumin 3.3 g/dL (3.9-5) L 08/21/20 15:30 Albumin/Globulin Ratio 1.1 % 08/21/20 15:30 Triglycerides 123 mg/dL (2-149) 08/21/20 15:30 Cholesterol 137 mg/dL (50-199) 08/21/20 15:30 LDL Cholesterol Direct 76 mg/dL (50-130) 08/21/20 15:30 HDL Cholesterol 35 mg/dL (40-59) L 08/21/20 15:30 Cholesterol/HDL Ratio 3.91 % 08/21/20 15:30 Arterial Blood Glucose 94 mg/dL (65-95) 08/21/20 15:13 Arterial Blood Ionized Calcium 4.0 mg/dL (4.6-5.3) L 08/21/20 15:13 Microbiology: Microbiology 08/21/20 16:38 Peripheral/Venous Blood Culture - Preliminary Culture in Progress 08/21/20 16:38 Peripheral/Venous Blood Culture - Preliminary Culture in Progress Assessment and Plan Advance Directives: Yes (Full code) VTE prophylaxis?: Chemical - Patient Problems (1) Acute hypoxemic respiratory failure Current Visit: Yes Status: Acute Plan to address problem: Patient is on BiPAP now May need intubation BNP is high Differential diagnosis of Covid also present Elevated troponin Possible troponin leak We will get CK and CK-MB for stratification (2) Acute exacerbation of CHF (congestive heart failure) Current Visit: Yes Status: Acute Qualifiers: Heart failure type: unspecified Qualified Code(s): I50.9 - Heart failure, unspecified Plan to address problem: BNP is very high and 27,000 We will get echocardiogram for ejection fraction IV Lasix in the meantime Daily weights and intake and output (3) Pneumonia Current Visit: Yes Status: Acute Plan to address problem: Treat as community-acquired pneumonia (4) Suspected 2019 novel coronavirus infection Current Visit: Yes Status: Acute Plan to address problem: Coronavirus PCR requested IV Decadron started (5) Hypertension Current Visit: Yes Status: Chronic Plan to address problem: Continue antihypertensive (6) DVT prophylaxis Current Visit: Yes Status: Acute Plan to address problem: On heparin and GI prophylaxis
[2020-08-22] MEDS ORDERED: ONDANSETRON 4 MG/2 ML INJ IV PRN (08:16)
[2020-08-22] MEDS ORDERED: ALBUTEROL 2.5 MG/3 ML NEBU IH PRN (08:31)
[2020-08-22 09:47] LABS: Creatine Kinase MB 4.3 ng/mL (0.0-4.0)
[2020-08-22] MEDS ORDERED: POTASSIUM CHLORIDE ER 20 MEQ TAB PO SCH (10:00)
[2020-08-22] MEDS ORDERED: AZITHROMYCIN/NS 500 MG/250 ML 500 MG/250 ML BAG IV SCH (10:00)
[2020-08-22] MEDS ORDERED: SODIUM CHLORIDE 0.9% 250ML 250 ML ONE (10:24)
[2020-08-22] MEDS: cefTRIAXone/NS 2 GM/100 ML 2 GM/100 ML BAG IV SCH (10:51)
[2020-08-22] MEDS: methylPREDNISolone Sod Succinate 40 MG/1 ML INJ IV SCH ×3 (10:52→21:54)
[2020-08-22] MEDS: FAMOTIDINE 20 MG TAB PO SCH (10:55)
[2020-08-22] MEDS: FUROSEMIDE 40 MG/4 ML INJ IV SCH ×2 (10:55→18:26)
--- NOTE | 2020-08-22 11:00 | Consultation ---
History of Present Illness Consult date: 08/22/20 Consult reason: congestive heart failure History of present illness: Patient is a 49-year old M admitted with shortness of breath, oxygen saturation of 72% on EMS arrival. Chest x-ray is suspicious for pneumonia. He is undergoing further evaluation for coronavirus infection. He is currently on isolation protocol and appears lethargic. There was no report of chest pain, palpitations or lower extremity edema. A 12-lead ECG is sinus rhythm, no acute ST or T wave changes. There is no reported cardiac history. An echocardiogram done at this hospital 8 months ago reports mildly dilated right ventricle, normal left ventricular systolic function, ejection fraction 55-60%. Medications and Allergies Allergies Allergy/AdvReac Type Severity Reaction Status Date / Time No Known Allergies Allergy Unverified 11/27/19 11:24 Home Medications Medication Instructions Recorded Confirmed Last Taken Type Vistaril 25 mg PO TID 11/27/19 11/27/19 Unknown History ZyPREXA 10 mg PO DAILY 11/27/19 11/27/19 Unknown History ZyPREXA 20 mg PO HS 11/27/19 11/27/19 Unknown History Apixaban [Eliquis] 5 mg PO Q12HR #60 tablet 12/12/19 Unknown Rx Depakote ER 250 mg PO BID #30 12/12/19 Unknown Rx Famotidine [Pepcid] 20 mg PO BID #30 tablet 12/12/19 Unknown Rx Furosemide [Lasix TAB] 40 mg PO DAILY@0600 #30 tablet 12/12/19 Unknown Rx carvediloL [Coreg] 3.125 mg PO BID #60 tablet 12/12/19 Unknown Rx lisinopriL [Zestril TAB] 2.5 mg PO QDAY #30 tablet 12/12/19 Unknown Rx predniSONE 10 mg PO QDAY #4 tab 12/12/19 Unknown Rx predniSONE [Deltasone] 20 mg PO QDAY #4 tab 12/12/19 Unknown Rx predniSONE [Deltasone] 40 mg PO QDAY #3 tablet 12/12/19 Unknown Rx Active Meds: Active Medications Acetaminophen (Acetaminophen 325 Mg Tab) 650 mg PO Q4H PRN PRN Reason: Pain MILD(1-3)/Fever >100.5/DIXON Albuterol (Albuterol 2.5 Mg/3 Ml Nebu) 1 mg IH Q3H PRN PRN Reason: Wheezing Albuterol/Ipratropium (Ipratropium/Albuterol Sulfate 3 Ml Ampul.Neb) 1 ampul IH QIDRT [facility] Famotidine (Famotidine 20 Mg Tab) 20 mg PO DAILY [facility] Last Admin: 08/22/20 10:55 Dose: 20 mg Documented by: Furosemide (Furosemide 40 Mg/4 Ml Inj) 40 mg IV 0600,1800 [facility] Last Admin: 08/22/20 10:55 Dose: 40 mg Documented by: Azithromycin (Zithromax/Ns) 500 mg in 250 mls @ 250 mls/hr IV Q24H [facility] Last Admin: 08/22/20 10:50 Dose: 250 mls/hr Documented by: Ceftriaxone Sodium (Rocephin/Ns 2 Gm/100 Ml) 2 gm in 100 mls @ 200 mls/hr IV Q24HR [facility]; Protocol Last Admin: 08/22/20 10:51 Dose: 200 mls/hr Documented by: Methylprednisolone Sodium Succinate (Methylprednisolone Sod Succinate 40 Mg/1 Ml Inj) 40 mg IV Q8HR [facility] Last Admin: 08/22/20 10:52 Dose: 40 mg Documented by: Morphine Sulfate (Morphine 2 Mg/1 Ml Inj) 2 mg IV Q4H PRN PRN Reason: Pain, Moderate (4-6) Ondansetron HCl (Ondansetron 4 Mg/2 Ml Inj) 4 mg IV Q8H PRN PRN Reason: Nausea And Vomiting Sodium Chloride (Sodium Chloride 0.9% 10 Ml Flush Syringe) 10 ml IV BID [facility] Last Admin: 08/22/20 10:54 Dose: 10 ml Documented by: Sodium Chloride (Sodium Chloride 0.9% 10 Ml Flush Syringe) 10 ml IV PRN PRN PRN Reason: LINE FLUSH Review of Systems ROS unobtainable: due to mental status Physical Examination Vital Signs Resp 24 08/21/20 15:10 General appearance: no acute distress HEENT: Positive: PERRL Cardiac: Positive: Reg Rate and Rhythm Results 08/21/20 15:30 08/21/20 15:30 Cardiac Enzymes 08/21/20 08/21/20 08/22/20 Range/Units 15:30 17:52 09:06 AST 49 H (5-40) units/L Lactate Dehydrogenase 303 H (91-180) units/L CK-MB (CK-2) 4.3 H (0.0-4.0) ng/mL Coagulation 08/21/20 Range/Units 15:30 PT 17.4 H (12.2-14.9) Sec. INR 1.37 H (0.87-1.13) APTT 31.3 (24.2-36.6) Sec. Lipids 08/21/20 Range/Units 15:30 Triglycerides 123 (2-149) mg/dL Cholesterol 137 (50-199) mg/dL HDL Cholesterol 35 L (40-59) mg/dL Cholesterol/HDL Ratio 3.91 % CBC 08/21/20 Range/Units 15:30 WBC 10.6 (4.5-11.0) K/mm3 RBC 4.96 (3.65-5.03) M/mm3 Hgb 15.7 H (11.8-15.2) gm/dl Hct 46.9 H (35.5-45.6) % Plt Count 84 L (140-440) K/mm3 Lymph # (Auto) 1.0 L (1.2-5.4) K/mm3 [place] # (Auto) 1.7 H (0.0-0.8) K/mm3 Eos # (Auto) 0.0 (0.0-0.4) K/mm3 Baso # (Auto) 0.0 (0.0-0.1) K/mm3 Comprehensive Metabolic Panel 08/21/20 Range/Units 15:30 Sodium 140 (137-145) mmol/L Potassium 4.4 (3.6-5.0) mmol/L Chloride 92.2 L (98-107) mmol/L Carbon Dioxide 34 H (22-30) mmol/L BUN 47 H (9-20) mg/dL Creatinine 3.2 H (0.8-1.3) mg/dL Glucose 102 H (75-100) mg/dL Calcium 8.3 L (8.4-10.2) mg/dL AST 49 H (5-40) units/L ALT 24 (7-56) units/L Alkaline Phosphatase 70 (35-129) units/L Total Protein 6.3 (6.3-8.2) g/dL Albumin 3.3 L (3.9-5) g/dL Assessment and Plan - Patient Problems (1) Acute hypoxemic respiratory failure Current Visit: Yes Status: Acute
[2020-08-22 16:00] LABS: Creatine Kinase MB 3.5 ng/mL (0.0-4.0)
[2020-08-22] MEDS: IPRATROPIUM/ALBUTEROL SULFATE 3 ML AMPUL.NEB IH SCH ×3 (17:29→20:44)
[2020-08-23] MEDS: methylPREDNISolone Sod Succinate 40 MG/1 ML INJ IV SCH ×3 (05:46→21:03)
[2020-08-23] MEDS: FUROSEMIDE 40 MG/4 ML INJ IV SCH ×2 (05:46→17:35)
[2020-08-23 07:36] LABS: Hematocrit 49.1 % (35.5-45.6); Hemoglobin 16.3 gm/dl (11.8-15.2); Mean Corpuscular HGB Conc 33 % (32-34); Mean Corpuscular Volume 96 fl (84-94); Platelet Count 113 K/mm3 (140-440); Red Blood Count 5.12 M/mm3 (3.65-5.03); Red Cell Distribution Width 13.9 % (13.2-15.2)
--- NOTE | 2020-08-23 08:26 | Progress Note ---
Assessment and Plan - Patient Problems (1) Acute hypoxemic respiratory failure Current Visit: Yes Status: Acute Plan to address problem: Patient was on BiPAP Transition to 8 L nasal cannula oxygen BNP is high Differential diagnosis of Covid also present Elevated troponin Possible troponin leak We will get CK and CK-MB for stratification (2) Acute exacerbation of CHF (congestive heart failure) Current Visit: Yes Status: Acute Qualifiers: Heart failure type: unspecified Qualified Code(s): I50.9 - Heart failure, unspecified Plan to address problem: BNP is very high and 27,000 We will get echocardiogram for ejection fraction IV Lasix in the meantime Daily weights and intake and output (3) Pneumonia Current Visit: Yes Status: Acute Plan to address problem: Treat as community-acquired pneumonia Covid ruled out (4) Suspected 2019 novel coronavirus infection Current Visit: Yes Status: Acute Plan to address problem: Coronavirus ruled out (5) Hypertension Current Visit: Yes Status: Chronic Plan to address problem: Continue antihypertensive (6) DVT prophylaxis Current Visit: Yes Status: Acute Plan to address problem: On heparin and GI prophylaxis Subjective Date of service: 08/22/20 Principal diagnosis: LLL pneumonia Interval history: This is a 49-year-old male presents to the emergency department via EMS from [place]. EMS was called by the stroke coordinator who says that his oxygen saturation was down in the 40s initially. EMS found him to have a an oxygen saturation in the 70s on 2 L via nasal cannula. Initially he was placed on 6 L via nasal cannula and went up into the mid 80s. He was then placed on CPAP and went up to about 92%. He has a history of hypertension, CHF, COPD and has been here previously for hypercapnic respiratory failure. The patient is currently a poor historian secondary to his current medical condition. 08/22/2020 Transition from BiPAP to 8 L nasal cannula oxygen Objective - Constitutional Vitals: Vital Signs - 12hr 08/22/20 08/22/20 08/22/20 20:30 20:32 20:40 Temperature Pulse Rate 86 100 H 95 H Pulse Rate [ Anterior Bilateral Throughout] Respiratory 12 10 L 15 Rate Respiratory Rate [Anterior Bilateral Throughout] Blood Pressure 125/77 125/77 125/77 O2 Sat by Pulse 91 93 89 Oximetry 08/22/20 08/22/20 08/22/20 20:45 20:50 20:55 Temperature Pulse Rate 98 H 82 Pulse Rate [ 87 Anterior Bilateral Throughout] Respiratory 21 21 Rate Respiratory 19 Rate [Anterior Bilateral Throughout] Blood Pressure 125/77 125/77 O2 Sat by Pulse 90 89 Oximetry 08/22/20 08/22/20 08/22/20 21:00 21:03 21:10 Temperature Pulse Rate 86 86 Pulse Rate [ Anterior Bilateral Throughout] Respiratory 19 11 L Rate Respiratory Rate [Anterior Bilateral Throughout] Blood Pressure 119/75 119/75 O2 Sat by Pulse 91 97 95 Oximetry 08/22/20 08/22/20 08/22/20 21:20 21:30 21:40 Temperature Pulse Rate 88 91 H 88 Pulse Rate [ Anterior Bilateral Throughout] Respiratory 19 18 20 Rate Respiratory Rate [Anterior Bilateral Throughout] Blood Pressure 119/75 119/75 119/75 O2 Sat by Pulse 96 98 98 Oximetry 08/22/20 08/22/20 08/22/20 21:50 22:00 22:10 Temperature Pulse Rate 79 83 86 Pulse Rate [ Anterior Bilateral Throughout] Respiratory 19 21 19 Rate Respiratory Rate [Anterior Bilateral Throughout] Blood Pressure 119/75 115/78 115/78 O2 Sat by Pulse 98 97 99 Oximetry 08/22/20 08/22/20 08/22/20 22:20 22:30 22:40 Temperature Pulse Rate 89 84 86 Pulse Rate [ Anterior Bilateral Throughout] Respiratory 11 L 20 15 Rate Respiratory Rate [Anterior Bilateral Throughout] Blood Pressure 115/78 115/78 115/78 O2 Sat by Pulse 96 96 95 Oximetry 08/22/20 08/22/20 08/22/20 22:50 23:00 23:10 Temperature Pulse Rate 85 85 86 Pulse Rate [ Anterior Bilateral Throughout] Respiratory 21 17 14 Rate Respiratory Rate [Anterior Bilateral Throughout] Blood Pressure 115/78 115/78 115/78 O2 Sat by Pulse 95 96 93 Oximetry 08/22/20 08/22/20 08/22/20 23:20 23:30 23:40 Temperature Pulse Rate 86 79 84 Pulse Rate [ Anterior Bilateral Throughout] Respiratory 15 16 17 Rate Respiratory Rate [Anterior Bilateral Throughout] Blood Pressure 115/78 115/78 115/78 O2 Sat by Pulse 95 96 95 Oximetry 08/22/20 08/22/20 08/23/20 23:44 23:50 00:00 Temperature 99.4 F Pulse Rate 92 H 79 Pulse Rate [ Anterior Bilateral Throughout] Respiratory 15 14 Rate Respiratory Rate [Anterior Bilateral Throughout] Blood Pressure 115/78 115/77 O2 Sat by Pulse 91 94 Oximetry 08/23/20 08/23/20 08/23/20 00:10 00:20 00:30 Temperature Pulse Rate 80 81 85 Pulse Rate [ Anterior Bilateral Throughout] Respiratory 14 13 20 Rate Respiratory Rate [Anterior Bilateral Throughout] Blood Pressure 115/77 115/77 115/77 O2 Sat by Pulse 96 95 97 Oximetry 08/23/20 08/23/20 08/23/20 00:40 00:50 01:00 Temperature Pulse Rate 88 84 87 Pulse Rate [ Anterior Bilateral Throughout] Respiratory 13 17 12 Rate Respiratory Rate [Anterior Bilateral Throughout] Blood Pressure 115/77 115/77 125/78 O2 Sat by Pulse 97 98 98 Oximetry 08/23/20 08/23/20 08/23/20 01:10 01:20 01:30 Temperature Pulse Rate 83 87 86 Pulse Rate [ Anterior Bilateral Throughout] Respiratory 13 21 21 Rate Respiratory Rate [Anterior Bilateral Throughout] Blood Pressure 125/78 125/78 125/78 O2 Sat by Pulse 98 99 98 Oximetry 08/23/20 08/23/20 08/23/20 01:40 01:50 02:00 Temperature Pulse Rate 75 82 83 Pulse Rate [ Anterior Bilateral Throughout] Respiratory 13 11 L 14 Rate Respiratory Rate [Anterior Bilateral Throughout] Blood Pressure 125/78 125/78 123/79 O2 Sat by Pulse 97 97 96 Oximetry 08/23/20 08/23/20 08/23/20 02:10 02:20 02:30 Temperature Pulse Rate 80 84 81 Pulse Rate [ Anterior Bilateral Throughout] Respiratory 12 15 13 Rate Respiratory Rate [Anterior Bilateral Throughout] Blood Pressure 123/79 123/79 123/79 O2 Sat by Pulse 95 95 95 Oximetry 08/23/20 08/23/20 08/23/20 02:40 02:50 03:00 Temperature Pulse Rate 88 94 H 78 Pulse Rate [ Anterior Bilateral Throughout] Respiratory 11 L 14 13 Rate Respiratory Rate [Anterior Bilateral Throughout] Blood Pressure 123/79 123/79 118/78 O2 Sat by Pulse 97 98 97 Oximetry 08/23/20 08/23/20 08/23/20 03:10 03:20 03:30 Temperature Pulse Rate 87 81 80 Pulse Rate [ Anterior Bilateral Throughout] Respiratory 12 15 13 Rate Respiratory Rate [Anterior Bilateral Throughout] Blood Pressure 118/78 118/78 118/78 O2 Sat by Pulse 98 98 99 Oximetry 08/23/20 08/23/20 08/23/20 03:40 03:50 04:00 Temperature 97.7 F Pulse Rate 83 79 73 Pulse Rate [ Anterior Bilateral Throughout] Respiratory 13 12 11 L Rate Respiratory Rate [Anterior Bilateral Throughout] Blood Pressure 118/78 118/78 124/81 O2 Sat by Pulse 99 99 99 Oximetry 08/23/20 08/23/20 08/23/20 04:10 04:20 04:30 Temperature Pulse Rate 76 74 76 Pulse Rate [ Anterior Bilateral Throughout] Respiratory 12 13 14 Rate Respiratory Rate [Anterior Bilateral Throughout] Blood Pressure 124/81 124/81 124/81 O2 Sat by Pulse 99 99 99 Oximetry 08/23/20 08/23/20 08/23/20 04:40 04:50 05:00 Temperature Pulse Rate 84 72 74 Pulse Rate [ Anterior Bilateral Throughout] Respiratory 20 16 13 Rate Respiratory Rate [Anterior Bilateral Throughout] Blood Pressure 124/81 124/81 133/82 O2 Sat by Pulse 100 100 99 Oximetry 08/23/20 08/23/20 08/23/20 05:10 05:20 05:30 Temperature Pulse Rate 80 77 105 H Pulse Rate [ Anterior Bilateral Throughout] Respiratory 16 16 16 Rate Respiratory Rate [Anterior Bilateral Throughout] Blood Pressure 133/82 133/82 133/82 O2 Sat by Pulse 99 99 99 Oximetry 08/23/20 08/23/20 08/23/20 05:40 05:44 05:50 Temperature Pulse Rate 84 97 H Pulse Rate [ Anterior Bilateral Throughout] Respiratory 13 24 Rate Respiratory Rate [Anterior Bilateral Throughout] Blood Pressure 133/82 133/82 O2 Sat by Pulse 99 97 97 Oximetry 08/23/20 08/23/20 08/23/20 06:00 06:10 06:20 Temperature Pulse Rate 91 H 88 86 Pulse Rate [ Anterior Bilateral Throughout] Respiratory 13 14 14 Rate Respiratory Rate [Anterior Bilateral Throughout] Blood Pressure 138/96 138/96 138/96 O2 Sat by Pulse 92 88 91 Oximetry 08/23/20 08/23/20 08/23/20 06:30 06:40 06:50 Temperature Pulse Rate 79 95 H 91 H Pulse Rate [ Anterior Bilateral Throughout] Respiratory 15 16 12 Rate Respiratory Rate [Anterior Bilateral Throughout] Blood Pressure 138/96 138/96 138/96 O2 Sat by Pulse 92 93 92 Oximetry 08/23/20 07:00 Temperature Pulse Rate 77 Pulse Rate [ Anterior Bilateral Throughout] Respiratory 15 Rate Respiratory Rate [Anterior Bilateral Throughout] Blood Pressure 139/83 O2 Sat by Pulse 92 Oximetry General appearance: Present: mild distress, well-nourished - EENT Eyes: PERRL, EOM intact ENT: hearing intact, clear oral mucosa Ears: bilateral: normal - Neck Neck: supple, normal ROM - Respiratory Respiratory effort: normal Respiratory: bilateral: CTA, rhonchi, wheezing - Breasts Breasts: normal - Cardiovascular Heart rate: 78 Rhythm: regular Heart Sounds: Present: S1 & S2. Absent: gallop, rub Extremities: pulses intact, No edema, normal color, Full ROM - Gastrointestinal General gastrointestinal: Present: soft, non-tender, non-distended, normal bowel sounds - Genitourinary Male genitourinary: normal - Integumentary Integumentary: clear, warm, dry - Musculoskeletal Musculoskeletal: 1, strength equal bilaterally - Neurologic Neurologic: moves all extremities - Psychiatric Psychiatric: memory intact, appropriate mood/affect, intact judgment & insight - Labs CBC & Chem 7: 08/23/20 07:19 08/23/20 07:19 Labs: Abnormal lab results 08/22/20 08/22/20 08/22/20 Range/Units 09:06 15:16 19:49 RBC (3.65-5.03) M/mm3 Hgb (11.8-15.2) gm/dl Hct (35.5-45.6) % MCV (84-94) fl Plt Count (140-440) K/mm3 Total Creatine Kinase 49 L 51 L (55-170) units/L CK-MB (CK-2) 4.3 H (0.0-4.0) ng/mL CK-MB (CK-2) Rel Index 8.7 H 5.4 H 5.8 H (0-4) 08/23/20 Range/Units 07:19 RBC 5.12 H (3.65-5.03) M/mm3 Hgb 16.3 H (11.8-15.2) gm/dl Hct 49.1 H (35.5-45.6) % MCV 96 H (84-94) fl Plt Count 113 L (140-440) K/mm3 Total Creatine Kinase (55-170) units/L CK-MB (CK-2) (0.0-4.0) ng/mL CK-MB (CK-2) Rel Index (0-4) HEART Score - HEART Score Troponin: Troponin T 0.045 ng/mL (0.00-0.029) H 08/21/20 20:38
[2020-08-23 08:34] LABS: Alanine Aminotransferase 26 units/L (7-56); Albumin 3.4 g/dL (3.9-5); BUN/Creatinine Ratio 31; Blood Urea Nitrogen 34 mg/dL (9-20); Calcium 9.2 mg/dL (8.4-10.2); Hemolysis Index 4
[2020-08-23] MEDS: IPRATROPIUM/ALBUTEROL SULFATE 3 ML AMPUL.NEB IH SCH ×3 (08:55→21:12)
--- NOTE | 2020-08-23 09:39 | Progress Note ---
Assessment and Plan - Patient Problems (1) Acute hypoxemic respiratory failure Current Visit: Yes Status: Acute Plan to address problem: 11/2019 echocardiogram reports normal left ventricular systolic function with ejection fraction 55 to 60%. Recommendations: Patient has no clinical or x-ray findings of fluid overload or congestive heart failure. We will defer to internal medicine and pulmonology for further evaluation of the patient's shortness of breath and O2 desaturation. Subjective Date of service: 08/23/20 Principal diagnosis: LLL pneumonia Interval history: Appears lethargic. Bilateral wrist restraints are in place. Objective Vital Signs Temp Pulse Pulse Resp Resp BP Pulse Ox 08/23/20 08:30 88 15 129/78 96 08/23/20 08:20 84 17 129/78 95 08/23/20 08:10 75 12 129/78 90 08/23/20 08:00 97.9 F 76 12 129/78 90 08/23/20 07:50 80 11 L 139/83 89 08/23/20 07:40 85 11 L 139/83 89 08/23/20 07:30 87 13 139/83 89 08/23/20 07:20 81 11 L 139/83 90 08/23/20 07:10 77 13 139/83 94 08/23/20 07:00 77 15 139/83 92 08/23/20 06:50 91 H 12 138/96 92 08/23/20 06:40 95 H 16 138/96 93 08/23/20 06:30 79 15 138/96 92 08/23/20 06:20 86 14 138/96 91 08/23/20 06:10 88 14 138/96 88 08/23/20 06:00 91 H 13 138/96 92 08/23/20 05:50 97 H 24 133/82 97 08/23/20 05:44 97 08/23/20 05:40 84 13 133/82 99 08/23/20 05:30 105 H 16 133/82 99 08/23/20 05:20 77 16 133/82 99 08/23/20 05:10 80 16 133/82 99 08/23/20 05:00 74 13 133/82 99 08/23/20 04:50 72 16 124/81 100 08/23/20 04:40 84 20 124/81 100 08/23/20 04:30 76 14 124/81 99 08/23/20 04:20 74 13 124/81 99 08/23/20 04:10 76 12 124/81 99 08/23/20 04:00 97.7 F 73 11 L 124/81 99 08/23/20 03:50 79 12 118/78 99 08/23/20 03:40 83 13 118/78 99 08/23/20 03:30 80 13 118/78 99 08/23/20 03:20 81 15 118/78 98 07 03:10 87 12 118/78 98 08/23/20 03:00 78 13 118/78 97 08/23/20 02:50 94 H 14 123/79 98 08/23/20 02:40 88 11 L 123/79 97 07 02:30 81 13 123/79 95 07 02:20 84 15 123/79 95 08/23/20 02:10 80 12 123/79 95 08/23/20 02:00 83 14 123/79 96 08/23/20 01:50 82 11 L 125/78 97 08/23/20 01:40 75 13 125/78 97 08/23/20 01:30 86 21 125/78 98 07 01:20 87 21 125/78 99 08/23/20 01:10 83 13 125/78 98 08/23/20 01:00 87 12 125/78 98 08/23/20 00:50 84 17 115/77 98 08/23/20 00:40 88 13 115/77 97 07 00:30 85 20 115/77 97 07 00:20 81 13 115/77 95 07 00:10 80 14 115/77 96 07 00:00 79 14 115/77 94 06 23:50 92 H 15 115/78 91 06 23:44 99.4 F 06 23:40 84 17 115/78 95 06/21 23:30 79 16 115/78 96 06/21 23:20 86 15 115/78 95 /06/21 23:10 86 14 115/78 93 06/ 23:00 85 17 115/78 96 /06 22:50 85 21 115/78 95 07/06/21 22:40 86 15 115/78 95 08/22/20 22:30 84 20 115/78 96 08/22/20 22:20 89 11 L 115/78 96 08/22/20 22:10 86 19 115/78 99 08/22/20 22:00 83 21 115/78 97 08/22/20 21:50 79 19 119/75 98 08/22/20 21:40 88 20 119/75 98 08/22/20 21:30 91 H 18 119/75 98 08/22/20 21:20 88 19 119/75 96 08/22/20 21:10 86 11 L 119/75 95 08/22/20 21:03 97 08/22/20 21:00 86 19 119/75 91 08/22/20 20:55 82 21 125/77 89 08/22/20 20:50 98 H 21 125/77 90 08/22/20 20:45 87 19 08/22/20 20:40 95 H 15 125/77 89 08/22/20 20:32 100 H 10 L 125/77 93 08/22/20 20:30 86 12 125/77 91 08/22/20 20:20 92 H 13 125/77 90 08/22/20 20:10 95 H 16 125/77 92 08/22/20 20:00 98.0 F 90 14 125/77 94 08/22/20 19:50 98 H 12 127/80 93 08/22/20 19:40 80 12 127/80 89 08/22/20 19:30 84 11 L 127/80 90 08/22/20 19:20 79 11 L 127/80 92 08/22/20 19:10 87 11 L 127/80 93 08/22/20 19:00 86 11 L 127/80 89 08/22/20 18:50 96 H 14 127/71 93 08/22/20 18:40 87 14 127/71 92 08/22/20 18:30 91 H 11 L 119/80 93 08/22/20 18:20 97 H 10 L 119/80 93 08/22/20 18:10 79 11 L 119/80 94 08/22/20 18:00 81 11 L 127/71 95 08/22/20 17:50 90 19 119/80 97 08/22/20 17:43 81 11 L 08/22/20 17:41 82 15 119/80 96 08/22/20 17:31 87 14 119/80 97 08/22/20 17:21 98 H 20 119/80 97 08/22/20 17:11 85 15 119/80 98 08/22/20 17:00 89 17 119/80 95 08/22/20 16:51 16 121/85 97 08/22/20 16:41 83 13 121/85 96 08/22/20 16:31 88 14 121/85 94 08/22/20 16:21 94 H 10 L 121/85 94 08/22/20 16:11 84 13 121/85 93 08/22/20 16:00 97.5 F L 93 H 16 121/85 92 08/22/20 15:50 85 11 L 125/77 97 08/22/20 15:41 82 12 125/77 97 08/22/20 15:31 80 11 L 125/77 97 08/22/20 15:21 85 13 125/77 97 08/22/20 15:11 98 H 24 125/77 96 08/22/20 15:03 95 08/22/20 15:00 91 H 15 125/77 93 08/22/20 14:51 81 17 99/46 92 08/22/20 14:41 80 15 99/46 94 08/22/20 14:31 84 14 99/46 97 08/22/20 14:23 79 99/46 08/22/20 14:01 99/46 08/22/20 13:32 132/85 98 08/22/20 13:22 132/85 95 08/22/20 13:11 132/85 90 08/22/20 13:00 87 13 132/85 94 08/22/20 12:51 92 H 13 122/76 94 08/22/20 12:41 91 H 16 122/76 95 08/22/20 12:31 104 H 32 H 122/76 89 08/22/20 12:21 94 H 12 122/76 87 08/22/20 12:11 100 H 12 122/76 90 08/22/20 12:00 97.5 F L 98 H 16 122/76 88 08/22/20 11:51 87 18 129/70 89 08/22/20 11:41 91 H 14 129/70 86 08/22/20 11:31 96 H 20 129/70 92 08/22/20 11:21 95 H 16 129/70 92 08/22/20 11:11 89 14 129/70 94 08/22/20 11:00 83 11 L 129/70 94 08/22/20 10:51 87 13 98/52 95 08/22/20 10:41 94 H 15 98/52 92 08/22/20 10:31 95 H 14 98/52 96 08/22/20 10:21 81 12 98/52 95 08/22/20 10:11 75 10 L 98/52 98 08/22/20 10:01 89 12 98/52 99 08/22/20 10:00 96 08/22/20 09:51 85 14 98/52 95 08/22/20 09:41 73 11 L 98/52 92 - Physical Examination General: No Apparent Distress HEENT: Positive: PERRL Neck: Positive: trachea midline Cardiac: Positive: Reg Rate and Rhythm Lungs: Positive: Decreased Breath Sounds - Labs and Meds Cardiac Enzymes 08/22/20 08/22/20 08/22/20 Range/Units 09:06 15:16 19:49 AST (5-40) units/L CK-MB (CK-2) 4.3 H 3.5 3.0 (0.0-4.0) ng/mL 08/23/20 Range/Units 07:19 AST 27 (5-40) units/L CK-MB (CK-2) (0.0-4.0) ng/mL CBC 08/23/20 Range/Units 07:19 WBC 6.8 (4.5-11.0) K/mm3 RBC 5.12 H (3.65-5.03) M/mm3 Hgb 16.3 H (11.8-15.2) gm/dl Hct 49.1 H (35.5-45.6) % Plt Count 113 L (140-440) K/mm3 Comprehensive Metabolic Panel 08/23/20 Range/Units 07:19 Sodium 143 (137-145) mmol/L Potassium 4.3 (3.6-5.0) mmol/L Chloride 92.3 L (98-107) mmol/L BUN 34 H (9-20) mg/dL Glucose 279 H (75-100) mg/dL Calcium 9.2 (8.4-10.2) mg/dL AST 27 (5-40) units/L ALT 26 (7-56) units/L Alkaline Phosphatase 74 (35-129) units/L Total Protein 6.6 (6.3-8.2) g/dL Albumin 3.4 L (3.9-5) g/dL
[2020-08-23] MEDS: FAMOTIDINE 20 MG TAB PO SCH (09:54)
[2020-08-23] MEDS: AZITHROMYCIN 250 MG TAB PO SCH (09:54)
[2020-08-23] MEDS: cefTRIAXone/NS 2 GM/100 ML 2 GM/100 ML BAG IV SCH (09:55)
[2020-08-23 12:49] LABS: Band Neutrophils # (Manual) 0.5 K/mm3; Platelet Estimate Consistent w Auto; Stomatocytes 2+; Total Cells Counted 100
--- NOTE | 2020-08-23 17:50 | Electrocardiograph Report ---
[facility] Test Date: 2020-08-21 Test Time: 19:40:10 Pat Name: CHELE NICOLE Department: Room: A267 1 Gender: M [employer] Att[employer]: CLT : 1970 Requested By: GINA CRESPO Order Number: [id number] Reading MD: Oliverio Chen Measurements Intervals [place] Rate: 80 P: 56 CO: 194 QRS: 264 QRSD: 89 T: 41 QT: 388 QTc: 449 Interpretive Statements Sinus rhythm Left anterior fascicular block Probable right ventricular hypertrophy No previous ECG available for comparison Electronically Signed On 08-23-2020 17:50:01 EDT by Oliverio Chen
[2020-08-23] MEDS: ACETAMINOPHEN 325 MG TAB PO PRN (20:51)
[2020-08-23] MEDS: MORPHINE 2 MG/1 ML INJ IV PRN (20:52)
[2020-08-24] MEDS: IPRATROPIUM/ALBUTEROL SULFATE 3 ML AMPUL.NEB IH SCH ×4 (02:24→20:14)
[2020-08-24] MEDS: ACETAMINOPHEN 325 MG TAB PO PRN (03:54)
[2020-08-24] MEDS: MORPHINE 2 MG/1 ML INJ IV PRN (03:54)
[2020-08-24] MEDS: FUROSEMIDE 40 MG/4 ML INJ IV SCH (05:13)
[2020-08-24] MEDS: methylPREDNISolone Sod Succinate 40 MG/1 ML INJ IV SCH ×3 (05:13→22:45)
--- NOTE | 2020-08-24 07:32 | Progress Note ---
Assessment and Plan - Patient Problems (1) Acute hypoxemic respiratory failure Current Visit: Yes Status: Acute Plan to address problem: Patient is on liters nasal cannula oxygen BNP is high Covid ruled out Elevated troponin Possible troponin leak CK and CK-MB are negative (2) Acute exacerbation of CHF (congestive heart failure) Current Visit: Yes Status: Acute Qualifiers: Heart failure type: unspecified Qualified Code(s): I50.9 - Heart failure, unspecified Plan to address problem: BNP is very high and 27,000 11/2019 echocardiogram reports normal left ventricular systolic function with ejection fraction 55 to 60%. Per cardiology no volume overload (3) Pneumonia Current Visit: Yes Status: Acute Plan to address problem: Treat as community-acquired pneumonia Patient on 8 L nasal cannula oxygen Initially on BiPAP Improved Smokes 6 cigarettes a day (4) Suspected 2019 novel coronavirus infection Current Visit: Yes Status: Acute Plan to address problem: Covid ruled out (5) Hypertension Current Visit: Yes Status: Chronic Plan to address problem: Continue antihypertensive (6) DVT prophylaxis Current Visit: Yes Status: Acute Plan to address problem: On heparin and GI prophylaxis Subjective Date of service: 08/23/20 Principal diagnosis: LLL pneumonia Interval history: This is a 49-year-old male presents to the emergency department via EMS from [place]. EMS was called by the project coach who says that his oxygen saturation was down in the 40s initially. EMS found him to have a an oxygen saturation in the 70s on 2 L via nasal cannula. Initially he was placed on 6 L via nasal cannula and went up into the mid 80s. He was then placed on CPAP and went up to about 92%. He has a history of hypertension, CHF, COPD and has been here previously for hypercapnic respiratory failure. The patient is currently a poor historian secondary to his current medical condition. 08/22/2020 On 8 L nasal cannula oxygen Cardiology consult appreciated 08/23/2020 More comfortable On 8 L nasal cannula oxygen Patient to be transferred to [facility] with remote telemetry Objective - Constitutional Vitals: Vital Signs - 12hr 08/23/20 08/23/20 08/23/20 20:00 20:10 20:16 Temperature 98.4 F Pulse Rate 88 82 82 Pulse Rate [ Anterior Bilateral Throughout] Pulse Rate [ 88 From Monitor] Respiratory 18 18 Rate Respiratory Rate [Anterior Bilateral Throughout] Respiratory Rate [Head] Blood Pressure 156/102 156/102 O2 Sat by Pulse 94 97 Oximetry 08/23/20 08/23/20 08/23/20 20:50 20:51 20:52 Temperature Pulse Rate Pulse Rate [ Anterior Bilateral Throughout] Pulse Rate [ From Monitor] Respiratory 16 16 Rate Respiratory Rate [Anterior Bilateral Throughout] Respiratory 16 Rate [Head] Blood Pressure O2 Sat by Pulse Oximetry 08/23/20 08/23/20 08/23/20 21:00 21:13 21:15 Temperature Pulse Rate 86 Pulse Rate [ 85 Anterior Bilateral Throughout] Pulse Rate [ From Monitor] Respiratory 12 Rate Respiratory 16 Rate [Anterior Bilateral Throughout] Respiratory Rate [Head] Blood Pressure 141/85 O2 Sat by Pulse 97 97 Oximetry 08/23/20 08/23/20 08/23/20 21:22 21:51 22:00 Temperature Pulse Rate 77 Pulse Rate [ Anterior Bilateral Throughout] Pulse Rate [ From Monitor] Respiratory 16 16 12 Rate Respiratory Rate [Anterior Bilateral Throughout] Respiratory Rate [Head] Blood Pressure 137/82 O2 Sat by Pulse 97 Oximetry 08/23/20 08/23/20 08/24/20 23:00 23:28 00:00 Temperature 98.6 F Pulse Rate 83 75 Pulse Rate [ Anterior Bilateral Throughout] Pulse Rate [ From Monitor] Respiratory 11 L 10 L Rate Respiratory Rate [Anterior Bilateral Throughout] Respiratory Rate [Head] Blood Pressure 137/86 131/80 O2 Sat by Pulse 94 98 Oximetry 08/24/20 08/24/20 08/24/20 00:40 01:00 02:00 Temperature Pulse Rate 76 83 72 Pulse Rate [ Anterior Bilateral Throughout] Pulse Rate [ From Monitor] Respiratory 14 12 Rate Respiratory Rate [Anterior Bilateral Throughout] Respiratory Rate [Head] Blood Pressure 141/83 120/76 O2 Sat by Pulse 95 98 Oximetry 08/24/20 08/24/20 08/24/20 02:25 03:00 03:54 Temperature Pulse Rate Pulse Rate [ Anterior Bilateral Throughout] Pulse Rate [ From Monitor] Respiratory 25 H 13 Rate Respiratory Rate [Anterior Bilateral Throughout] Respiratory Rate [Head] Blood Pressure 120/76 O2 Sat by Pulse 97 95 Oximetry 08/24/20 08/24/20 08/24/20 04:00 04:24 04:35 Temperature 98.0 F Pulse Rate 78 84 Pulse Rate [ Anterior Bilateral Throughout] Pulse Rate [ 78 From Monitor] Respiratory 11 L 12 Rate Respiratory Rate [Anterior Bilateral Throughout] Respiratory Rate [Head] Blood Pressure 131/78 O2 Sat by Pulse 98 Oximetry 08/24/20 08/24/20 08/24/20 04:54 05:00 06:00 Temperature Pulse Rate 78 72 Pulse Rate [ Anterior Bilateral Throughout] Pulse Rate [ From Monitor] Respiratory 12 12 15 Rate Respiratory Rate [Anterior Bilateral Throughout] Respiratory Rate [Head] Blood Pressure 132/72 137/69 O2 Sat by Pulse 95 98 Oximetry 08/24/20 07:00 Temperature Pulse Rate 75 Pulse Rate [ Anterior Bilateral Throughout] Pulse Rate [ From Monitor] Respiratory 11 L Rate Respiratory Rate [Anterior Bilateral Throughout] Respiratory Rate [Head] Blood Pressure 136/77 O2 Sat by Pulse 98 Oximetry General appearance: Present: mild distress, well-nourished - EENT Eyes: PERRL, EOM intact ENT: hearing intact, clear oral mucosa Ears: bilateral: normal - Neck Neck: supple, normal ROM - Respiratory Respiratory effort: normal Respiratory: bilateral: CTA, rhonchi - Breasts Breasts: normal - Cardiovascular Heart rate: 78 Rhythm: regular Heart Sounds: Present: S1 & S2. Absent: gallop, rub Extremities: pulses intact, No edema, normal color, Full ROM - Gastrointestinal General gastrointestinal: Present: soft, non-tender, non-distended, normal bowel sounds - Genitourinary Male genitourinary: normal - Integumentary Integumentary: clear, warm, dry - Musculoskeletal Musculoskeletal: 1, strength equal bilaterally - Neurologic Neurologic: moves all extremities - Psychiatric Psychiatric: memory intact, appropriate mood/affect, intact judgment & insight - Labs CBC & Chem 7: 08/23/20 07:19 08/23/20 07:19 Labs: Abnormal lab results 08/23/20 08/23/20 Range/Units 07:19 07:19 RBC 5.12 H (3.65-5.03) M/mm3 Hgb 16.3 H (11.8-15.2) gm/dl Hct 49.1 H (35.5-45.6) % MCV 96 H (84-94) fl Plt Count 113 L (140-440) K/mm3 Seg Neuts % (Manual) 89.0 H (40.0-70.0) % Lymphocytes % (Manual) 2.0 L (13.4-35.0) % Nucleated RBC % 1.0 H (0.0-0.9) % Lymphocytes # (Manual) 0.1 L (1.2-5.4) K/mm3 Chloride 92.3 L (98-107) mmol/L Carbon Dioxide 44 H* D (22-30) mmol/L BUN 34 H (9-20) mg/dL Glucose 279 H (75-100) mg/dL Albumin 3.4 L (3.9-5) g/dL HEART Score - HEART Score Troponin: Troponin T 0.045 ng/mL (0.00-0.029) H 08/21/20 20:38
--- NOTE | 2020-08-24 07:40 | Event Note ---
Date: 08/23/20 Lasix was stopped as the EF was near normal
--- NOTE | 2020-08-24 08:30 | Progress Note ---
Assessment and Plan Assessment and plan: This is a 49-year-old male presents to the emergency department via EMS from [place]. EMS was called by the pipe organ installer who says that his oxygen saturation was down in the 40s initially. EMS found him to have a an oxygen saturation in the 70s on 2 L via nasal cannula. Initially he was placed on 6 L via nasal cannula and went up into the mid 80s. He was then placed on CPAP and went up to about 92%. He has a history of hypertension, CHF, COPD and has been here previously for hypercapnic respiratory failure. The patient is currently a poor historian secondary to his current medical condition. 08/22/2020 On 8 L nasal cannula oxygen Cardiology consult appreciated 08/23/2020 More comfortable On 8 L nasal cannula oxygen Patient to be transferred to [facility] with remote telemetry 08/24 Patient seen and examined this morning Remains -encephalopathic and on 15 liter of Oxygen. Pysch medications and apixaban had not been restarted since admission, unsure of the accuracy of the med [facility] Reviewed prior hx, patient was admitted in Nov 2019 With shortness of breath, was intubated and diagnosed with PE, COPD exacerbation and discharged on Eliquis and steroids Will obtain ABG on Room air if possible. Will obtain Pulmonary consult CXR is unremarkable, Hold transfer to floor until issues sorted out Restart Eliquis Obtain psych consult patient oriented only to person. (1) Acute hypoxemic respiratory failure Current Visit: Yes Status: Acute Plan to address problem: Patient is on liters nasal cannula oxygen BNP is high Covid ruled out Elevated troponin Possible troponin leak CK and CK-MB are negative (2) Acute exacerbation of CHF (congestive heart failure) Current Visit: Yes Status: Acute Qualifiers: Heart failure type: unspecified Qualified Code(s): I50.9 - Heart failure, unspecified Plan to address problem: BNP is very high and 27,000 11/2019 echocardiogram reports normal left ventricular systolic function with ejection fraction 55 to 60%. Per cardiology no volume overload (3) Pneumonia Current Visit: Yes Status: Acute Plan to address problem: Treat as community-acquired pneumonia Patient on 8 L nasal cannula oxygen Initially on BiPAP Improved Smokes 6 cigarettes a day (4) Suspected 2019 novel coronavirus infection Current Visit: Yes Status: Acute Plan to address problem: Covid ruled out (5) Hypertension Current Visit: Yes Status: Chronic Plan to address problem: Continue antihypertensive (6) DVT prophylaxis Current Visit: Yes Status: Acute Plan to address problem: On heparin and GI prophylaxis History Interval history: Patient seen and examined, lethargic, confused, unable to answer questions and still on 15 liters of oxygen Hospitalist Physical - Physical exam Narrative exam: General appearance: Present: mild distress, disheveled, well-nourished - EENT Eyes: PERRL, EOM intact ENT: hearing intact, clear oral mucosa Ears: bilateral: normal - Neck Neck: supple, normal ROM - Respiratory Respiratory effort: normal Respiratory: bilateral: CTA, rhonchi - Breasts Breasts: normal - Cardiovascular Heart rate: 78 Rhythm: regular Heart Sounds: Present: S1 & S2. Absent: gallop, rub Extremities: pulses intact, No edema, normal color, Full ROM - Gastrointestinal General gastrointestinal: Present: soft, non-tender, non-distended, normal bowel sounds - Genitourinary Male genitourinary: normal - Integumentary Integumentary: clear, warm, dry - Musculoskeletal Musculoskeletal: 1, strength equal bilaterally - Neurologic Neurologic: moves all extremities, aao x1 - Psychiatric Psychiatric: flat affect - Constitutional Vitals: Temp Pulse Resp BP Pulse Ox 98.0 F 75 11 L 136/77 98 08/24/20 04:00 08/24/20 07:00 08/24/20 07:00 08/24/20 07:00 08/24/20 07:00 General appearance: Present: mild distress, well-nourished HEART Score - HEART Score Troponin: Troponin T 0.045 ng/mL (0.00-0.029) H 08/21/20 20:38 Results - Labs CBC & Chem 7: 08/23/20 07:19 08/23/20 07:19 Labs: Laboratory Last Values WBC 6.8 K/mm3 (4.5-11.0) 08/23/20 07:19 RBC 5.12 M/mm3 (3.65-5.03) H 08/23/20 07:19 Hgb 16.3 gm/dl (11.8-15.2) H 08/23/20 07:19 Hct 49.1 % (35.5-45.6) H 08/23/20 07:19 MCV 96 fl (84-94) H 08/23/20 07:19 MCH 32 pg (28-32) 08/23/20 07:19 MCHC 33 % (32-34) 08/23/20 07:19 RDW 13.9 % (13.2-15.2) 08/23/20 07:19 Plt Count 113 K/mm3 (140-440) L 08/23/20 07:19 Lymph % (Auto) 9.0 % (13.4-35.0) L 08/21/20 15:30 [place] % (Auto) 15.8 % (0.0-7.3) H 08/21/20 15:30 Eos % (Auto) 0.0 % (0.0-4.3) 08/21/20 15:30 Baso % (Auto) 0.3 % (0.0-1.8) 08/21/20 15:30 Lymph # (Auto) 1.0 K/mm3 (1.2-5.4) L 08/21/20 15:30 [place] # (Auto) 1.7 K/mm3 (0.0-0.8) H 08/21/20 15:30 Eos # (Auto) 0.0 K/mm3 (0.0-0.4) 08/21/20 15:30 Baso # (Auto) 0.0 K/mm3 (0.0-0.1) 08/21/20 15:30 Add Manual Diff Complete 08/23/20 07:19 Total Counted 100 08/23/20 07:19 Seg Neutrophils % [employer] 08/23/20 07:19 Seg Neuts % (Manual) 89.0 % (40.0-70.0) H 08/23/20 07:19 Band Neutrophils % 7.0 % 08/23/20 07:19 Lymphocytes % (Manual) 2.0 % (13.4-35.0) L 08/23/20 07:19 Monocytes % (Manual) 2.0 % (0.0-7.3) 08/23/20 07:19 Nucleated RBC % 1.0 % (0.0-0.9) H 08/23/20 07:19 Seg Neutrophils # 7.9 K/mm3 (1.8-7.7) H 08/21/20 15:30 Seg Neutrophils # Man 6.1 K/mm3 (1.8-7.7) 08/23/20 07:19 Band Neutrophils # 0.5 K/mm3 08/23/20 07:19 Lymphocytes # (Manual) 0.1 K/mm3 (1.2-5.4) L 08/23/20 07:19 Abs React Lymphs (Man) 0.0 K/mm3 08/23/20 07:19 Monocytes # (Manual) 0.1 K/mm3 (0.0-0.8) 08/23/20 07:19 Eosinophils # (Manual) 0.0 K/mm3 (0.0-0.4) 08/23/20 07:19 Basophils # (Manual) 0.0 K/mm3 (0.0-0.1) 08/23/20 07:19 Metamyelocytes # 0.0 K/mm3 08/23/20 07:19 Myelocytes # 0.0 K/mm3 08/23/20 07:19 Promyelocytes # 0.0 K/mm3 08/23/20 07:19 Blast Cells # 0.0 K/mm3 08/23/20 07:19 WBC Morphology Not Reportable 08/23/20 07:19 Hypersegmented Neuts Not Reportable 08/23/20 07:19 Hyposegmented Neuts Not Reportable 08/23/20 07:19 Hypogranular Neuts Not Reportable 08/23/20 07:19 Smudge Cells Not Reportable 08/23/20 07:19 Toxic Granulation Not Reportable 08/23/20 07:19 Toxic Vacuolation Not Reportable 08/23/20 07:19 Dohle Bodies Not Reportable 08/23/20 07:19 Pelger-Huet Anomaly Not Reportable 08/23/20 07:19 Malena Rods Not Reportable 08/23/20 07:19 Platelet Estimate Consistent w auto 08/23/20 07:19 Clumped Platelets Not Reportable 08/23/20 07:19 Plt Clumps, EDTA Not Reportable 08/23/20 07:19 Large Platelets Not Reportable 08/23/20 07:19 Giant Platelets Not Reportable 08/23/20 07:19 Platelet Satelliting Not Reportable 08/23/20 07:19 Plt Morphology Comment Not Reportable 08/23/20 07:19 RBC Morphology Not Reportable 08/23/20 07:19 Dimorphic RBCs Not Reportable 08/23/20 07:19 Polychromasia Not Reportable 08/23/20 07:19 Hypochromasia Not Reportable 08/23/20 07:19 Poikilocytosis Not Reportable 08/23/20 07:19 Anisocytosis Not Reportable 08/23/20 07:19 Microcytosis Not Reportable 08/23/20 07:19 Macrocytosis Not Reportable 08/23/20 07:19 Spherocytes Not Reportable 08/23/20 07:19 Pappenheimer Bodies Not Reportable 08/23/20 07:19 Sickle Cells Not Reportable 08/23/20 07:19 Target Cells Not Reportable 08/23/20 07:19 Tear Drop Cells Not Reportable 08/23/20 07:19 Ovalocytes Not Reportable 08/23/20 07:19 Stomatocytes 2+ 08/23/20 07:19 Helmet Cells Not Reportable 08/23/20 07:19 [place] Bodies Not Reportable 08/23/20 07:19 [place] Rings Not Reportable 08/23/20 07:19 Dain Cells Not Reportable 08/23/20 07:19 Bite Cells Not Reportable 08/23/20 07:19 Crenated Cell Not Reportable 08/23/20 07:19 Elliptocytes Not Reportable 08/23/20 07:19 Acanthocytes (Spur) Not Reportable 08/23/20 07:19 Rouleaux Not Reportable 08/23/20 07:19 Hemoglobin C Crystals Not Reportable 08/23/20 07:19 Schistocytes Not Reportable 08/23/20 07:19 Malaria parasites Not Reportable 08/23/20 07:19 Rock Bodies Not Reportable 08/23/20 07:19 Hem Pathologist Commnt No 08/23/20 07:19 PT 17.4 Sec. (12.2-14.9) H 08/21/20 15:30 INR 1.37 (0.87-1.13) H 08/21/20 15:30 APTT 31.3 Sec. (24.2-36.6) 08/21/20 15:30 D-Dimer 251.44 ng/mlDDU (0-234) H 08/21/20 17:52 ABG pH 7.395 (7.320-7.450) 08/21/20 15:13 POC ABG pCO2 57.9 mmHg (32.0-48.0) H 08/21/20 15:13 POC ABG pO2 178.0 mmHg (83-108) H 08/21/20 15:13 POC ABG HCO3 34.7 08/21/20 15:13 ABG O2 Saturation 99.2 (0-100) 08/21/20 15:13 POC ABG Base Excess 7.5 08/21/20 15:13 ABG Hemoglobin 16.1 (12.0-17.5) 08/21/20 15:13 ABG Oxyhemoglobin 94.6 (94-98) 08/21/20 15:13 ABG Methemoglobin 0.3 (0.0-1.5) 08/21/20 15:13 ABG Sodium 134.2 mmol/L (136.0-145.0) L 08/21/20 15:13 ABG Potassium 5.1 mmol/L (3.40-4.50) H 08/21/20 15:13 ABG Chloride 96.0 mmol/L (98-107) L 08/21/20 15:13 ABG Glucose 94 mg/dL (65-95) 08/21/20 15:13 Carboxyhemoglobin 4.3 (0.5-1.5) H 08/21/20 15:13 FiO2 % 65.0 08/21/20 15:13 Sodium 143 mmol/L (137-145) 08/23/20 07:19 Potassium 4.3 mmol/L (3.6-5.0) 08/23/20 07:19 Chloride 92.3 mmol/L (98-107) L 08/23/20 07:19 Carbon Dioxide 44 mmol/L (22-30) H* D 08/23/20 07:19 Anion Gap 11 mmol/L 08/23/20 07:19 BUN 34 mg/dL (9-20) H 08/23/20 07:19 Creatinine 1.1 mg/dL (0.8-1.3) D 08/23/20 07:19 Estimated GFR > 60 ml/min 08/23/20 07:19 BUN/Creatinine Ratio 31 % 08/23/20 07:19 Glucose 279 mg/dL (75-100) H 08/23/20 07:19 POC Glucose 83 mg/dL (70-105) 08/22/20 07:49 Hemoglobin A1c 5.5 % (4-6) 08/22/20 09:06 Lactic Acid 1.30 mmol/L (0.7-2.0) 08/21/20 15:30 Calcium 9.2 mg/dL (8.4-10.2) 08/23/20 07:19 Total Bilirubin 0.30 mg/dL (0.1-1.2) 08/23/20 07:19 AST 27 units/L (5-40) 08/23/20 07:19 ALT 26 units/L (7-56) 08/23/20 07:19 Alkaline Phosphatase 74 units/L (35-129) 08/23/20 07:19 Lactate Dehydrogenase 303 units/L (91-180) H 08/21/20 17:52 Total Creatine Kinase 51 units/L (55-170) L 08/22/20 19:49 CK-MB (CK-2) 3.0 ng/mL (0.0-4.0) 08/22/20 19:49 CK-MB (CK-2) Rel Index 5.8 (0-4) H 08/22/20 19:49 Troponin T 0.045 ng/mL (0.00-0.029) H 08/21/20 20:38 C-Reactive Protein 18.90 mg/dL (0.00-1.30) H 08/21/20 17:52 NT-Pro-B Natriuret Pep 47825 pg/mL (0-450) H 08/21/20 15:30 Total Protein 6.6 g/dL (6.3-8.2) 08/23/20 07:19 Albumin 3.4 g/dL (3.9-5) L 08/23/20 07:19 Albumin/Globulin Ratio 1.1 % 08/23/20 07:19 Triglycerides 123 mg/dL (2-149) 08/21/20 15:30 Cholesterol 137 mg/dL (50-199) 08/21/20 15:30 LDL Cholesterol Direct 76 mg/dL (50-130) 08/21/20 15:30 HDL Cholesterol 35 mg/dL (40-59) L 08/21/20 15:30 Cholesterol/HDL Ratio 3.91 % 08/21/20 15:30 Procalcitonin 0.43 ng/mL (<0.15) 08/21/20 17:52 Arterial Blood Glucose 94 mg/dL (65-95) 08/21/20 15:13 Arterial Blood Ionized Calcium 4.0 mg/dL (4.6-5.3) L 08/21/20 15:13 Coronavirus (PCR) Negative (Negative) 08/22/20 Unknown Microbiology: Microbiology 08/21/20 16:38 Peripheral/Venous Blood Culture - Preliminary NO GROWTH AFTER 48 HOURS 08/21/20 16:38 Peripheral/Venous Blood Culture - Preliminary NO GROWTH AFTER 48 HOURS Cohen/IV: Voiding Method Incontinent Active Medications - Current Medications Current Medications: Generic Name Dose Route Start Last Admin Trade Name Freq PRN Reason Stop Dose Admin Acetaminophen 650 mg 08/22/20 08:16 08/24/20 03:54 Acetaminophen 325 Mg Tab PO 650 mg Q4H PRN Administration Pain MILD(1-3)/Fever >100.5/DIXON Albuterol 1 mg 08/22/20 08:31 Albuterol 2.5 Mg/3 Ml Nebu IH Q3H PRN Wheezing Albuterol/Ipratropium 1 ampul 08/23/20 14:00 08/24/20 02:24 Ipratropium/Albuterol Sulfate 3 Ml Ampul.Neb IH Not Given Q6HRT AYAKA Azithromycin 500 mg 08/23/20 10:00 08/23/20 09:54 Azithromycin 250 Mg Tab PO 08/26/20 10:01 500 mg QDAY AYAKA Administration Protocol Carvedilol 3.125 mg 08/24/20 10:00 Carvedilol 3.125 Mg Tab PO BID AYAKA Famotidine 20 mg 08/22/20 10:00 08/23/20 09:54 Famotidine 20 Mg Tab PO 20 mg DAILY AYAKA Administration Ceftriaxone Sodium 2 gm in 100 mls @ 200 mls/hr 08/22/20 10:00 08/23/20 09:55 Rocephin/Ns 2 Gm/100 Ml IV 08/26/20 10:29 200 mls/hr Q24HR AYAKA Administration Protocol Methylprednisolone Sodium Succinate 40 mg 08/22/20 09:00 08/24/20 05:13 Methylprednisolone Sod Succinate 40 Mg/1 Ml Inj IV 40 mg Q8HR AYAKA Administration Miscellaneous Medication 5 mg 08/24/20 10:00 Apixaban PO Q12HR AYAKA Miscellaneous Medication 250 mg 08/24/20 10:00 Depakote Er PO BID [facility] Miscellaneous Medication 25 mg 08/24/20 14:00 Vistaril PO TID AYAKA Miscellaneous Medication 10 mg 08/24/20 10:00 Zyprexa PO DAILY [facility] Miscellaneous Medication 20 mg 08/24/20 22:00 Zyprexa PO HS [facility] Morphine Sulfate 2 mg 08/22/20 08:16 08/24/20 03:54 Morphine 2 Mg/1 Ml Inj IV 2 mg Q4H PRN Administration Pain, Moderate (4-6) Nicotine 14 mg 08/24/20 10:00 Nicotine 14 Mg/24 Hr Patch TD QDAY [facility] Ondansetron HCl 4 mg 08/22/20 08:16 Ondansetron 4 Mg/2 Ml Inj IV Q8H PRN Nausea And Vomiting Sodium Chloride 10 ml 08/22/20 10:00 08/23/20 21:04 Sodium Chloride 0.9% 10 Ml Flush Syringe IV 10 ml BID AYAKA Administration Sodium Chloride 10 ml 08/22/20 08:16 Sodium Chloride 0.9% 10 Ml Flush Syringe IV PRN PRN LINE FLUSH
--- NOTE | 2020-08-24 09:35 | Progress Note ---
Assessment and Plan - Patient Problems (1) Acute hypoxemic respiratory failure Current Visit: Yes Status: Acute Plan to address problem: 11/2019 echocardiogram reports normal left ventricular systolic function with ejection fraction 55 to 60%. Conservative cardiac management. Subjective Date of service: 08/24/20 Principal diagnosis: LLL pneumonia Interval history: No cardiac events. Objective Vital Signs Temp Pulse Pulse Pulse Resp Resp Resp 08/24/20 09:03 79 12 08/24/20 08:00 08/24/20 07:00 75 11 L 08/24/20 06:00 72 15 08/24/20 05:00 78 12 08/24/20 04:54 12 08/24/20 04:35 84 08/24/20 04:24 12 08/24/20 04:00 98.0 F 78 78 11 L 08/24/20 03:54 13 08/24/20 03:00 25 H 08/24/20 02:25 08/24/20 02:00 72 12 08/24/20 01:00 83 14 08/24/20 00:40 76 08/24/20 00:00 75 10 L 08/23/20 23:28 98.6 F 08/23/20 23:00 83 11 L 08/23/20 22:00 77 12 08/23/20 21:51 16 08/23/20 21:22 16 08/23/20 21:15 08/23/20 21:13 85 16 08/23/20 21:00 86 12 08/23/20 20:52 16 08/23/20 20:51 16 08/23/20 20:50 16 08/23/20 20:16 82 18 08/23/20 20:10 82 08/23/20 20:00 98.4 F 88 88 18 08/23/20 19:30 79 12 08/23/20 19:00 80 15 08/23/20 18:50 81 18 08/23/20 18:40 95 H 16 08/23/20 18:30 84 17 08/23/20 18:20 77 14 08/23/20 18:10 83 13 08/23/20 18:00 79 15 08/23/20 17:50 80 16 08/23/20 17:40 92 H 12 08/23/20 17:30 79 15 08/23/20 17:20 80 16 08/23/20 17:10 76 16 08/23/20 17:00 93 H 11 L 08/23/20 16:50 77 15 08/23/20 16:40 77 14 08/23/20 16:30 81 15 08/23/20 16:20 85 16 08/23/20 16:10 95 H 12 08/23/20 16:00 98.6 F 86 15 08/23/20 15:50 75 15 08/23/20 15:40 81 14 08/23/20 15:30 95 H 13 08/23/20 15:20 78 16 08/23/20 15:10 81 92 H 20 18 08/23/20 15:00 82 18 08/23/20 14:50 80 14 08/23/20 14:40 86 13 08/23/20 14:30 86 19 08/23/20 14:20 88 15 08/23/20 14:10 94 H 16 08/23/20 14:00 88 15 08/23/20 13:50 79 16 08/23/20 13:40 87 12 08/23/20 13:30 93 H 21 08/23/20 13:20 89 16 08/23/20 13:10 89 15 08/23/20 13:00 85 13 08/23/20 12:50 83 13 08/23/20 12:40 89 13 08/23/20 12:30 72 10 L 08/23/20 12:20 71 10 L 08/23/20 12:10 69 10 L 08/23/20 12:00 98.2 F 82 11 L 08/23/20 11:50 73 12 08/23/20 11:40 75 11 L 08/23/20 11:30 77 11 L 08/23/20 11:20 80 13 08/23/20 11:10 80 13 08/23/20 11:00 87 16 08/23/20 10:50 85 12 08/23/20 10:40 85 17 08/23/20 10:30 88 16 08/23/20 10:20 89 17 08/23/20 10:10 86 19 08/23/20 10:00 92 H 22 08/23/20 09:50 89 11 L 08/23/20 09:40 82 13 08/23/20 09:37 BP Pulse Ox 08/24/20 09:03 08/24/20 08:00 98 08/24/20 07:00 136/77 98 08/24/20 06:00 137/69 98 08/24/20 05:00 132/72 95 08/24/20 04:54 08/24/20 04:35 08/24/20 04:24 08/24/20 04:00 131/78 98 08/24/20 03:54 08/24/20 03:00 120/76 95 08/24/20 02:25 97 08/24/20 02:00 120/76 98 08/24/20 01:00 141/83 95 08/24/20 00:40 08/24/20 00:00 131/80 98 08/23/20 23:28 08/23/20 23:00 137/86 94 08/23/20 22:00 137/82 97 08/23/20 21:51 08/23/20 21:22 08/23/20 21:15 97 08/23/20 21:13 08/23/20 21:00 141/85 97 08/23/20 20:52 08/23/20 20:51 08/23/20 20:50 08/23/20 20:16 156/102 97 08/23/20 20:10 08/23/20 20:00 156/102 94 08/23/20 19:30 142/85 95 08/23/20 19:00 142/85 96 08/23/20 18:50 130/84 95 08/23/20 18:40 130/84 98 08/23/20 18:30 130/84 97 08/23/20 18:20 130/84 98 08/23/20 18:10 130/84 97 08/23/20 18:00 130/84 97 08/23/20 17:50 145/95 96 08/23/20 17:40 145/95 99 08/23/20 17:30 145/95 96 08/23/20 17:20 145/95 96 08/23/20 17:10 145/95 95 08/23/20 17:00 123/82 95 08/23/20 16:50 123/82 96 08/23/20 16:40 123/82 96 08/23/20 16:30 123/82 94 08/23/20 16:20 123/82 92 08/23/20 16:10 123/82 98 08/23/20 16:00 123/82 95 08/23/20 15:50 126/82 96 08/23/20 15:40 126/82 95 08/23/20 15:30 126/82 98 08/23/20 15:20 126/82 96 08/23/20 15:10 126/82 95 08/23/20 15:00 126/82 96 08/23/20 14:50 132/89 94 08/23/20 14:40 132/89 93 08/23/20 14:30 132/89 95 08/23/20 14:20 132/89 93 08/23/20 14:10 132/89 91 08/23/20 14:00 132/89 91 08/23/20 13:50 147/102 90 08/23/20 13:40 147/102 93 08/23/20 13:30 147/102 92 08/23/20 13:20 147/102 87 08/23/20 13:10 147/102 90 08/23/20 13:00 147/102 88 08/23/20 12:50 125/83 95 08/23/20 12:40 125/83 96 08/23/20 12:30 125/83 98 08/23/20 12:20 125/83 96 08/23/20 12:10 125/83 97 08/23/20 12:00 125/83 95 08/23/20 11:50 146/95 94 08/23/20 11:40 146/95 93 08/23/20 11:30 146/95 92 08/23/20 11:20 146/95 92 08/23/20 11:10 146/95 91 08/23/20 11:00 146/95 90 08/23/20 10:50 145/96 90 08/23/20 10:40 145/96 92 08/23/20 10:30 145/96 92 08/23/20 10:20 145/96 88 08/23/20 10:10 145/96 87 08/23/20 10:00 145/96 88 08/23/20 09:50 150/95 89 08/23/20 09:40 150/95 87 08/23/20 09:37 93 - Physical Examination General: No Apparent Distress HEENT: Positive: PERRL Neck: Positive: trachea midline Cardiac: Positive: Reg Rate and Rhythm Lungs: Positive: Decreased Breath Sounds - Labs and Meds Comprehensive Metabolic Panel 08/23/20 Range/Units 07:19 Carbon Dioxide 44 H* D (22-30) mmol/L Creatinine 1.1 D (0.8-1.3) mg/dL
[2020-08-24] MEDS: FAMOTIDINE 20 MG TAB PO SCH (10:01)
[2020-08-24] MEDS: APIXABAN 5 MG TAB PO SCH ×2 (10:02→22:44)
[2020-08-24] MEDS: cefTRIAXone/NS 2 GM/100 ML 2 GM/100 ML BAG IV SCH (10:02)
[2020-08-24] MEDS: NICOTINE 14 MG/24 HR PATCH TD SCH (10:02)
[2020-08-24] MEDS: carvediloL 3.125 MG TAB PO SCH ×2 (10:02→22:45)
[2020-08-24] MEDS: AZITHROMYCIN 250 MG TAB PO SCH (10:03)
[2020-08-24] MEDS: DIVALPROEX ER 250 MG TAB PO SCH ×2 (11:01→22:44)
--- NOTE | 2020-08-24 11:07 | Consultation ---
History of Present Illness - Reason for Consult Consult date: 08/24/20 Reason for consult: bipolar, ams - History of Present Psychiatric Illness Bacilio Dickens is a 49y/o male patient who was evaluated today. He is confused, has poor insight and unable to give any history or tell what is going on with him. He often repeats the same words. His responses are inappropriate for the questions being asked. The patient states he has heart trouble, sleep apnea and emphysema. When asked if he had any psychiatric history, he replies "emphysema." I rephrased the question and asked if he had a history of depression, bipolar or schizophrenia, he replied "emphysema." The patient then says "Marcos Salcedo is the reason I'm here. He is no good." When asking the patient if he's taking any medications, he replies "." PAST PSYCHIATRIC HISTORY: Unable to obtain PAST MEDICAL HISTORY: OSP, asthma, emphysema, heart trouble Family Psychiatric History: None reported or documented SOCIAL HISTORY Unable to obtain REVIEW OF SYSTEMS Unable to obtain MENTAL STATUS EXAMINATION Unable to assess Diagnoses: Delirium Current Visit: Yes Status: Acute RECOMMENDATIONS I agree with home meds Risks, benefits and alternatives of medications discussed with the patient, questions answered and consent obtained from patient. PSYCHOTHERAPY: Supportive psychotherapy provided MEDICAL: Per primary team DELIRIUM PRECAUTIONS: Please re-orient patient frequently, keep lights on during the day, and minimize benzodiazepines and opiates as these medications could worsen patient's confusion. 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 Please contact with any questions and/or concerns. Case staffed with Dr. Noriega Medications and Allergies Allergies Allergy/AdvReac Type Severity Reaction Status Date / Time No Known Allergies Allergy Unverified 11/27/19 11:24 Home Medications Medication Instructions Recorded Confirmed Last Taken Type Vistaril 25 mg PO TID 11/27/19 11/27/19 Unknown History ZyPREXA 10 mg PO DAILY 11/27/19 11/27/19 Unknown History ZyPREXA 20 mg PO HS 11/27/19 11/27/19 Unknown History Apixaban [Eliquis] 5 mg PO Q12HR #60 tablet 12/12/19 Unknown Rx Depakote ER 250 mg PO BID #30 12/12/19 Unknown Rx Famotidine [Pepcid] 20 mg PO BID #30 tablet 12/12/19 Unknown Rx Furosemide [Lasix TAB] 40 mg PO DAILY@0600 #30 tablet 12/12/19 Unknown Rx carvediloL [Coreg] 3.125 mg PO BID #60 tablet 12/12/19 Unknown Rx lisinopriL [Zestril TAB] 2.5 mg PO QDAY #30 tablet 12/12/19 Unknown Rx predniSONE 10 mg PO QDAY #4 tab 12/12/19 Unknown Rx predniSONE [Deltasone] 20 mg PO QDAY #4 tab 12/12/19 Unknown Rx predniSONE [Deltasone] 40 mg PO QDAY #3 tablet 12/12/19 Unknown Rx Active Meds: Active Medications Acetaminophen (Acetaminophen 325 Mg Tab) 650 mg PO Q4H PRN PRN Reason: Pain MILD(1-3)/Fever >100.5/DIXON Last Admin: 08/24/20 03:54 Dose: 650 mg Documented by: Albuterol (Albuterol 2.5 Mg/3 Ml Nebu) 1 mg IH Q3H PRN PRN Reason: Wheezing Albuterol/Ipratropium (Ipratropium/Albuterol Sulfate 3 Ml Ampul.Neb) 1 ampul IH Q6HRT [facility] Last Admin: 08/24/20 09:08 Dose: 1 ampul Documented by: Apixaban (Apixaban 5 Mg Tab) 5 mg PO Q12HR [facility] Last Admin: 08/24/20 10:02 Dose: 5 mg Documented by: Azithromycin (Azithromycin 250 Mg Tab) 500 mg PO QDAY [facility]; Protocol Stop: 08/26/20 10:01 Last Admin: 08/24/20 10:03 Dose: 500 mg Documented by: Carvedilol (Carvedilol 3.125 Mg Tab) 3.125 mg PO BID [facility] Last Admin: 08/24/20 10:02 Dose: 3.125 mg Documented by: Divalproex Sodium (Divalproex Er 250 Mg Tab) 250 mg PO BID [facility] Last Admin: 08/24/20 11:01 Dose: 250 mg Documented by: Famotidine (Famotidine 20 Mg Tab) 20 mg PO DAILY [facility] Last Admin: 08/24/20 10:01 Dose: 20 mg Documented by: Hydroxyzine Pamoate (Hydroxyzine Pamoate 25 Mg Cap) 25 mg PO TID [facility] [place] Ceftriaxone Sodium (Rocephin/Ns 2 Gm/100 Ml) 2 gm in 100 mls @ 200 mls/hr IV Q24HR [facility] [place]; Protocol Stop: 08/26/20 10:29 Last Admin: 08/24/20 10:02 Dose: 200 mls/hr Documented by: Methylprednisolone Sodium Succinate (Methylprednisolone Sod Succinate 40 Mg/1 Ml Inj) 40 mg IV Q8HR [facility] [place] Last Admin: 08/24/20 05:13 Dose: 40 mg Documented by: Morphine Sulfate (Morphine 2 Mg/1 Ml Inj) 2 mg IV Q4H PRN PRN Reason: Pain, Moderate (4-6) Last Admin: 08/24/20 03:54 Dose: 2 mg Documented by: Nicotine (Nicotine 14 Mg/24 Hr Patch) 14 mg TD QDAY [facility] [place] Last Admin: 08/24/20 10:02 Dose: 14 mg Documented by: Olanzapine (Olanzapine 10 Mg Tab) 10 mg PO DAILY [facility] [place] Last Admin: 08/24/20 11:01 Dose: 10 mg Documented by: Olanzapine (Olanzapine 10 Mg Tab) 20 mg PO HS [facility] [place] Ondansetron HCl (Ondansetron 4 Mg/2 Ml Inj) 4 mg IV Q8H PRN PRN Reason: Nausea And Vomiting Sodium Chloride (Sodium Chloride 0.9% 10 Ml Flush Syringe) 10 ml IV BID [facility] [place] Last Admin: 08/24/20 10:03 Dose: 10 ml Documented by: Sodium Chloride (Sodium Chloride 0.9% 10 Ml Flush Syringe) 10 ml IV PRN PRN PRN Reason: LINE FLUSH Mental Status Exam - Vital signs Last Vital Signs Temp 97.4 F L 08/24/20 08:00 Pulse 96 H 08/24/20 10:02 Resp 11 L 08/24/20 10:00 BP 121/76 08/24/20 10:00 Pulse Ox 90 08/24/20 10:00 Results Result Diagrams: 08/23/20 07:19 08/23/20 07:19 Abnormal lab results 08/23/20 08/24/20 Range/Units 07:19 09:54 Seg Neuts % (Manual) 89.0 H (40.0-70.0) % Lymphocytes % (Manual) 2.0 L (13.4-35.0) % Nucleated RBC % 1.0 H (0.0-0.9) % Lymphocytes # (Manual) 0.1 L (1.2-5.4) K/mm3 ABG pH 7.319 L (7.320-7.450) POC ABG pCO2 97.9 H (32.0-48.0) mmHg POC ABG pO2 53.2 L (83-108) mmHg ABG Oxyhemoglobin 86.8 L (94-98) ABG Chloride 87.0 L (98-107) mmol/L ABG Glucose 202 H (65-95) mg/dL Arterial Blood Glucose 202 H (65-95) mg/dL Arterial Blood Ionized Calcium 4.4 L (4.6-5.3) mg/dL All other labs normal.
--- NOTE | 2020-08-24 13:19 | Consultation ---
History of Present Illness Consult date: 08/24/20 Requesting physician: DEEPALI LANCE Reason for consult: hypoxemia History of present illness: 49 y/o male with prior history of COPD and CHF admitted several days ago with acute respiratory failure. I know this patient from his admission in November. He was intubated for several days then extubated and required HFNC for several days. Now in Step Down on Bipap secondary to hypercapnea. Past History Past Medical History: COPD, other (CHF) Medications and Allergies Allergies Allergy/AdvReac Type Severity Reaction Status Date / Time No Known Allergies Allergy Unverified 11/27/19 11:24 Home Medications Medication Instructions Recorded Confirmed Last Taken Type Vistaril 25 mg PO TID 11/27/19 11/27/19 Unknown History ZyPREXA 10 mg PO DAILY 11/27/19 11/27/19 Unknown History ZyPREXA 20 mg PO HS 11/27/19 11/27/19 Unknown History Apixaban [Eliquis] 5 mg PO Q12HR #60 tablet 12/12/19 Unknown Rx Depakote ER 250 mg PO BID #30 12/12/19 Unknown Rx Famotidine [Pepcid] 20 mg PO BID #30 tablet 12/12/19 Unknown Rx Furosemide [Lasix TAB] 40 mg PO DAILY@0600 #30 tablet 12/12/19 Unknown Rx carvediloL [Coreg] 3.125 mg PO BID #60 tablet 12/12/19 Unknown Rx lisinopriL [Zestril TAB] 2.5 mg PO QDAY #30 tablet 12/12/19 Unknown Rx predniSONE 10 mg PO QDAY #4 tab 12/12/19 Unknown Rx predniSONE [Deltasone] 20 mg PO QDAY #4 tab 12/12/19 Unknown Rx predniSONE [Deltasone] 40 mg PO QDAY #3 tablet 12/12/19 Unknown Rx Active Meds: Active Medications Acetaminophen (Acetaminophen 325 Mg Tab) 650 mg PO Q4H PRN PRN Reason: Pain MILD(1-3)/Fever >100.5/DIXON Last Admin: 08/24/20 03:54 Dose: 650 mg Documented by: Albuterol (Albuterol 2.5 Mg/3 Ml Nebu) 1 mg IH Q3H PRN PRN Reason: Wheezing Albuterol/Ipratropium (Ipratropium/Albuterol Sulfate 3 Ml Ampul.Neb) 1 ampul IH Q6HRT [facility] Last Admin: 08/24/20 09:08 Dose: 1 ampul Documented by: Apixaban (Apixaban 5 Mg Tab) 5 mg PO Q12HR [facility] Last Admin: 08/24/20 10:02 Dose: 5 mg Documented by: Azithromycin (Azithromycin 250 Mg Tab) 500 mg PO QDAY [facility]; Protocol Stop: 08/26/20 10:01 Last Admin: 08/24/20 10:03 Dose: 500 mg Documented by: Carvedilol (Carvedilol 3.125 Mg Tab) 3.125 mg PO BID [facility] Last Admin: 08/24/20 10:02 Dose: 3.125 mg Documented by: Divalproex Sodium (Divalproex Er 250 Mg Tab) 250 mg PO BID [facility] Last Admin: 08/24/20 11:01 Dose: 250 mg Documented by: Famotidine (Famotidine 20 Mg Tab) 20 mg PO DAILY [facility] Last Admin: 08/24/20 10:01 Dose: 20 mg Documented by: Hydroxyzine Pamoate (Hydroxyzine Pamoate 25 Mg Cap) 25 mg PO TID [facility] Ceftriaxone Sodium (Rocephin/Ns 2 Gm/100 Ml) 2 gm in 100 mls @ 200 mls/hr IV Q24HR [facility]; Protocol Stop: 08/26/20 10:29 Last Admin: 08/24/20 10:02 Dose: 200 mls/hr Documented by: Methylprednisolone Sodium Succinate (Methylprednisolone Sod Succinate 40 Mg/1 Ml Inj) 40 mg IV Q8HR [facility] Last Admin: 08/24/20 05:13 Dose: 40 mg Documented by: Morphine Sulfate (Morphine 2 Mg/1 Ml Inj) 2 mg IV Q4H PRN PRN Reason: Pain, Moderate (4-6) Last Admin: 08/24/20 03:54 Dose: 2 mg Documented by: Nicotine (Nicotine 14 Mg/24 Hr Patch) 14 mg TD QDAY [facility] Last Admin: 08/24/20 10:02 Dose: 14 mg Documented by: Olanzapine (Olanzapine 10 Mg Tab) 10 mg PO DAILY [facility] Last Admin: 08/24/20 11:01 Dose: 10 mg Documented by: Olanzapine (Olanzapine 10 Mg Tab) 20 mg PO HS [facility] Ondansetron HCl (Ondansetron 4 Mg/2 Ml Inj) 4 mg IV Q8H PRN PRN Reason: Nausea And Vomiting Sodium Chloride (Sodium Chloride 0.9% 10 Ml Flush Syringe) 10 ml IV BID AYAKA Last Admin: 08/24/20 10:03 Dose: 10 ml Documented by: Sodium Chloride (Sodium Chloride 0.9% 10 Ml Flush Syringe) 10 ml IV PRN PRN PRN Reason: LINE FLUSH Review of Systems All systems: negative Physical Examination Vital signs: Vital Signs Resp 24 08/21/20 15:10 General appearance: no acute distress, lethargic Eyes: non-icteric ENT: oropharynx moist Neck: supple, no lymphadenopathy Effort: normal Ascultation: Bilateral: clear Percussion: Bilateral: not dull Tactile fremitus: Bilateral: normal Cardiovascular: regular rate and rhythm Gastrointestinal: soft Extremities: no edema Results - Laboratory Findings CBC and BMP: 08/23/20 07:19 08/23/20 07:19 ABG ABG pH 7.319 (7.320-7.450) L 08/24/20 09:54 POC ABG pCO2 97.9 mmHg (32.0-48.0) H 08/24/20 09:54 POC ABG pO2 53.2 mmHg (83-108) L 08/24/20 09:54 POC ABG HCO3 49.2 08/24/20 09:54 ABG O2 Saturation 87.9 (0-100) 08/24/20 09:54 PT/INR, D-dimer PT 17.4 Sec. (12.2-14.9) H 08/21/20 15:30 INR 1.37 (0.87-1.13) H 08/21/20 15:30 D-Dimer 251.44 ng/mlDDU (0-234) H 08/21/20 17:52 Abnormal lab findings: Abnormal Labs 08/21/20 08/21/20 08/21/20 15:13 15:30 15:30 RBC Hgb 15.7 H Hct 46.9 H MCV 95 H Plt Count 84 L Lymph % (Auto) 9.0 L [place] % (Auto) 15.8 H Lymph # (Auto) 1.0 L [place] # (Auto) 1.7 H Seg Neutrophils % 74.9 H Seg Neuts % (Manual) Lymphocytes % (Manual) Nucleated RBC % Seg Neutrophils # 7.9 H Lymphocytes # (Manual) PT INR D-Dimer ABG pH POC ABG pCO2 57.9 H POC ABG pO2 178.0 H ABG Oxyhemoglobin ABG Sodium 134.2 L ABG Potassium 5.1 H ABG Chloride 96.0 L ABG Glucose Carboxyhemoglobin 4.3 H Chloride 92.2 L Carbon Dioxide 34 H BUN 47 H Creatinine 3.2 H Glucose 102 H Calcium 8.3 L AST 49 H Lactate Dehydrogenase Total Creatine Kinase CK-MB (CK-2) CK-MB (CK-2) Rel Index Troponin T C-Reactive Protein NT-Pro-B Natriuret Pep Albumin 3.3 L HDL Cholesterol Arterial Blood Glucose Arterial Blood Ionized Calcium 4.0 L 08/21/20 08/21/20 08/21/20 15:30 15:30 17:52 RBC Hgb Hct MCV Plt Count Lymph % (Auto) [place] % (Auto) Lymph # (Auto) [place] # (Auto) Seg Neutrophils % Seg Neuts % (Manual) Lymphocytes % (Manual) Nucleated RBC % Seg Neutrophils # Lymphocytes # (Manual) PT 17.4 H INR 1.37 H D-Dimer ABG pH POC ABG pCO2 POC ABG pO2 ABG Oxyhemoglobin ABG Sodium ABG Potassium ABG Chloride ABG Glucose Carboxyhemoglobin Chloride Carbon Dioxide BUN Creatinine Glucose Calcium AST Lactate Dehydrogenase Total Creatine Kinase CK-MB (CK-2) CK-MB (CK-2) Rel Index Troponin T 0.053 H 0.051 H C-Reactive Protein NT-Pro-B Natriuret Pep 88754 H Albumin HDL Cholesterol 35 L Arterial Blood Glucose Arterial Blood Ionized Calcium 08/21/20 08/21/20 08/21/20 17:52 17:52 20:38 RBC Hgb Hct MCV Plt Count Lymph % (Auto) [place] % (Auto) Lymph # (Auto) [place] # (Auto) Seg Neutrophils % Seg Neuts % (Manual) Lymphocytes % (Manual) Nucleated RBC % Seg Neutrophils # Lymphocytes # (Manual) PT INR D-Dimer 251.44 H ABG pH POC ABG pCO2 POC ABG pO2 ABG Oxyhemoglobin ABG Sodium ABG Potassium ABG Chloride ABG Glucose Carboxyhemoglobin Chloride Carbon Dioxide BUN Creatinine Glucose Calcium AST Lactate Dehydrogenase 303 H Total Creatine Kinase CK-MB (CK-2) CK-MB (CK-2) Rel Index Troponin T 0.045 H C-Reactive Protein 18.90 H NT-Pro-B Natriuret Pep Albumin HDL Cholesterol Arterial Blood Glucose Arterial Blood Ionized Calcium 08/22/20 08/22/20 08/22/20 09:06 15:16 19:49 RBC Hgb Hct MCV Plt Count Lymph % (Auto) [place] % (Auto) Lymph # (Auto) [place] # (Auto) Seg Neutrophils % Seg Neuts % (Manual) Lymphocytes % (Manual) Nucleated RBC % Seg Neutrophils # Lymphocytes # (Manual) PT INR D-Dimer ABG pH POC ABG pCO2 POC ABG pO2 ABG Oxyhemoglobin ABG Sodium ABG Potassium ABG Chloride ABG Glucose Carboxyhemoglobin Chloride Carbon Dioxide BUN Creatinine Glucose Calcium AST Lactate Dehydrogenase Total Creatine Kinase 49 L 51 L CK-MB (CK-2) 4.3 H CK-MB (CK-2) Rel Index 8.7 H 5.4 H 5.8 H Troponin T C-Reactive Protein NT-Pro-B Natriuret Pep Albumin HDL Cholesterol Arterial Blood Glucose Arterial Blood Ionized Calcium 08/23/20 08/23/20 08/24/20 07:19 07:19 09:54 RBC 5.12 H Hgb 16.3 H Hct 49.1 H MCV 96 H Plt Count 113 L Lymph % (Auto) [place] % (Auto) Lymph # (Auto) [place] # (Auto) Seg Neutrophils % Seg Neuts % (Manual) 89.0 H Lymphocytes % (Manual) 2.0 L Nucleated RBC % 1.0 H Seg Neutrophils # Lymphocytes # (Manual) 0.1 L PT INR D-Dimer ABG pH 7.319 L POC ABG pCO2 97.9 H POC ABG pO2 53.2 L ABG Oxyhemoglobin 86.8 L ABG Sodium ABG Potassium ABG Chloride 87.0 L ABG Glucose 202 H Carboxyhemoglobin Chloride 92.3 L Carbon Dioxide 44 H* D BUN 34 H Creatinine Glucose 279 H Calcium AST Lactate Dehydrogenase Total Creatine Kinase CK-MB (CK-2) CK-MB (CK-2) Rel Index Troponin T C-Reactive Protein NT-Pro-B Natriuret Pep Albumin 3.4 L HDL Cholesterol Arterial Blood Glucose 202 H Arterial Blood Ionized Calcium 4.4 L Assessment and Plan 49 y/o male with known COPD, NABIL, and CHF admitted with acute exacerbation of CHF And COPD with chronic hypercapnic respiratory failure. 1. Bipap therapy for now 2. Repeat ABG 3. Ok with IV steroids 4. Continue daily net negative state 5. patient is noncompliant with outpatient therapy.
[2020-08-24] MEDS ORDERED: LORazepam 2 MG/ML VIAL IV ONE (14:45)
[2020-08-24] MEDS: hydrOXYzine PAMOATE 25 MG CAP PO SCH ×2 (14:56→22:45)
[2020-08-24] MEDS ORDERED: HALOPERIDOL LACTATE 5 MG/1 ML INJ IV ONE (15:00)
[2020-08-24] MEDS ORDERED: diphenhydrAMINE 50 MG/ML VIAL IV ONE (15:00)
[2020-08-25] MEDS: IPRATROPIUM/ALBUTEROL SULFATE 3 ML AMPUL.NEB IH SCH ×4 (01:21→20:08)
[2020-08-25] MEDS: methylPREDNISolone Sod Succinate 40 MG/1 ML INJ IV SCH ×3 (05:54→22:23)
--- NOTE | 2020-08-25 08:44 | Progress Note ---
Assessment and Plan Assessment and plan: This is a 49-year-old male presents to the emergency department via EMS from [place]. EMS was called by the store loss prevention manager who says that his oxygen saturation was down in the 40s initially. EMS found him to have a an oxygen saturation in the 70s on 2 L via nasal cannula. Initially he was placed on 6 L via nasal cannula and went up into the mid 80s. He was then placed on CPAP and went up to about 92%. He has a history of hypertension, CHF, COPD and has been here previously for hypercapnic respiratory failure. The patient is currently a poor historian secondary to his current medical condition. 08/22/2020 On 8 L nasal cannula oxygen Cardiology consult appreciated 08/23/2020 More comfortable On 8 L nasal cannula oxygen Patient to be transferred to [facility] with remote telemetry 08/24 Patient seen and examined this morning Remains -encephalopathic and on 15 liter of Oxygen. Pysch medications and apixaban had not been restarted since admission, unsure of the accuracy of the med [facility] Reviewed prior hx, patient was admitted in Nov 2019 With shortness of breath, was intubated and diagnosed with PE, COPD exacerbation and discharged on Eliquis and steroids Will obtain ABG on Room air if possible. Will obtain Pulmonary consult CXR is unremarkable, Hold transfer to floor until issues sorted out Restart Eliquis Obtain psych consult patient oriented only to person. 08/25: Pulmonary and psych input noted. Evidence of hypercapnia on ABG noted anticipate some correction with BiPAP. Continue current monitoring. Continue IMCU care as patient is too unstable for transfer to the floors at this time. Is still very agitated and encephalopathic. Again when mental status is improved will be apparent discussion with this patient again about need to be on BiPAP even outpatient ramos. (1) Acute hypoxemic and hypercapnic respiratory failure Current Visit: Yes Status: Acute Plan to address problem: Patient is on liters nasal cannula oxygen BNP is high Covid ruled out Elevated troponin Possible troponin leak CK and CK-MB are negative (2) Acute exacerbation of CHF (congestive heart failure) Current Visit: Yes Status: Acute Qualifiers: Heart failure type: unspecified Qualified Code(s): I50.9 - Heart failure, unspecified Plan to address problem: BNP is very high and 27,000 11/2019 echocardiogram reports normal left ventricular systolic function with ejection fraction 55 to 60%. Per cardiology no volume overload (3) Pneumonia Current Visit: Yes Status: Acute Plan to address problem: Treat as community-acquired pneumonia Patient on 8 L nasal cannula oxygen Initially on BiPAP Improved Smokes 6 cigarettes a day (4) Suspected 2019 novel coronavirus infection Current Visit: Yes Status: Acute Plan to address problem: Covid ruled out (5) Hypertension Current Visit: Yes Status: Chronic Plan to address problem: Continue antihypertensive (6) acute toxic metabolic encephalopathy (7)DVT prophylaxis Current Visit: Yes Status: Acute Plan to address problem: On heparin and GI prophylaxis History Interval history: Patient seen and examined, lethargic, confused, on BiPAP at 70% FiO2 Hospitalist Physical - Physical exam Narrative exam: General appearance: Present: mild distress, disheveled, well-nourished - EENT Eyes: PERRL, EOM intact ENT: hearing intact, clear oral mucosa Ears: bilateral: normal - Neck Neck: supple, normal ROM - Respiratory Respiratory effort: normal on BiPAP with full facemask Respiratory: bilateral: CTA, rhonchi - Breasts Breasts: normal - Cardiovascular Heart rate: 78 Rhythm: regular Heart Sounds: Present: S1 & S2. Absent: gallop, rub Extremities: pulses intact, No edema, normal color, Full ROM - Gastrointestinal General gastrointestinal: Present: soft, non-tender, non-distended, normal bowel sounds - Genitourinary Male genitourinary: normal - Integumentary Integumentary: clear, warm, dry - Musculoskeletal Musculoskeletal: 1, strength equal bilaterally - Neurologic Neurologic: moves all extremities, aao x1 - Psychiatric Psychiatric: flat affect - Constitutional Vitals: Temp Pulse Resp BP Pulse Ox 97.5 F L 60 16 108/69 99 08/25/20 04:00 08/25/20 08:36 08/25/20 08:36 08/25/20 08:36 08/25/20 08:36 General appearance: Present: mild distress, well-nourished HEART Score - HEART Score Troponin: Troponin T 0.045 ng/mL (0.00-0.029) H 08/21/20 20:38 Results - Labs CBC & Chem 7: 08/23/20 07:19 08/23/20 07:19 Labs: Laboratory Last Values WBC 6.8 K/mm3 (4.5-11.0) 08/23/20 07:19 RBC 5.12 M/mm3 (3.65-5.03) H 08/23/20 07:19 Hgb 16.3 gm/dl (11.8-15.2) H 08/23/20 07:19 Hct 49.1 % (35.5-45.6) H 08/23/20 07:19 MCV 96 fl (84-94) H 08/23/20 07:19 MCH 32 pg (28-32) 08/23/20 07:19 MCHC 33 % (32-34) 08/23/20 07:19 RDW 13.9 % (13.2-15.2) 08/23/20 07:19 Plt Count 113 K/mm3 (140-440) L 08/23/20 07:19 Lymph % (Auto) 9.0 % (13.4-35.0) L 08/21/20 15:30 [place] % (Auto) 15.8 % (0.0-7.3) H 08/21/20 15:30 Eos % (Auto) 0.0 % (0.0-4.3) 08/21/20 15:30 Baso % (Auto) 0.3 % (0.0-1.8) 08/21/20 15:30 Lymph # (Auto) 1.0 K/mm3 (1.2-5.4) L 08/21/20 15:30 Wilson # (Auto) 1.7 K/mm3 (0.0-0.8) H 08/21/20 15:30 Eos # (Auto) 0.0 K/mm3 (0.0-0.4) 08/21/20 15:30 Baso # (Auto) 0.0 K/mm3 (0.0-0.1) 08/21/20 15:30 Add Manual Diff Complete 08/23/20 07:19 Total Counted 100 08/23/20 07:19 Seg Neutrophils % Data Clerk 08/23/20 07:19 Seg Neuts % (Manual) 89.0 % (40.0-70.0) H 08/23/20 07:19 Band Neutrophils % 7.0 % 08/23/20 07:19 Lymphocytes % (Manual) 2.0 % (13.4-35.0) L 08/23/20 07:19 Monocytes % (Manual) 2.0 % (0.0-7.3) 08/23/20 07:19 Nucleated RBC % 1.0 % (0.0-0.9) H 08/23/20 07:19 Seg Neutrophils # 7.9 K/mm3 (1.8-7.7) H 08/21/20 15:30 Seg Neutrophils # Man 6.1 K/mm3 (1.8-7.7) 08/23/20 07:19 Band Neutrophils # 0.5 K/mm3 08/23/20 07:19 Lymphocytes # (Manual) 0.1 K/mm3 (1.2-5.4) L 08/23/20 07:19 Abs React Lymphs (Man) 0.0 K/mm3 08/23/20 07:19 Monocytes # (Manual) 0.1 K/mm3 (0.0-0.8) 08/23/20 07:19 Eosinophils # (Manual) 0.0 K/mm3 (0.0-0.4) 08/23/20 07:19 Basophils # (Manual) 0.0 K/mm3 (0.0-0.1) 08/23/20 07:19 Metamyelocytes # 0.0 K/mm3 08/23/20 07:19 Myelocytes # 0.0 K/mm3 08/23/20 07:19 Promyelocytes # 0.0 K/mm3 08/23/20 07:19 Blast Cells # 0.0 K/mm3 08/23/20 07:19 WBC Morphology Not Reportable 08/23/20 07:19 Hypersegmented Neuts Not Reportable 08/23/20 07:19 Hyposegmented Neuts Not Reportable 08/23/20 07:19 Hypogranular Neuts Not Reportable 08/23/20 07:19 Smudge Cells Not Reportable 08/23/20 07:19 Toxic Granulation Not Reportable 08/23/20 07:19 Toxic Vacuolation Not Reportable 08/23/20 07:19 Dohle Bodies Not Reportable 08/23/20 07:19 Pelger-Huet Anomaly Not Reportable 08/23/20 07:19 Malena Rods Not Reportable 08/23/20 07:19 Platelet Estimate Consistent w auto 08/23/20 07:19 Clumped Platelets Not Reportable 08/23/20 07:19 Plt Clumps, EDTA Not Reportable 08/23/20 07:19 Large Platelets Not Reportable 08/23/20 07:19 Giant Platelets Not Reportable 08/23/20 07:19 Platelet Satelliting Not Reportable 08/23/20 07:19 Plt Morphology Comment Not Reportable 08/23/20 07:19 RBC Morphology Not Reportable 08/23/20 07:19 Dimorphic RBCs Not Reportable 08/23/20 07:19 Polychromasia Not Reportable 08/23/20 07:19 Hypochromasia Not Reportable 08/23/20 07:19 Poikilocytosis Not Reportable 08/23/20 07:19 Anisocytosis Not Reportable 08/23/20 07:19 Microcytosis Not Reportable 08/23/20 07:19 Macrocytosis Not Reportable 08/23/20 07:19 Spherocytes Not Reportable 08/23/20 07:19 Pappenheimer Bodies Not Reportable 08/23/20 07:19 Sickle Cells Not Reportable 08/23/20 07:19 Target Cells Not Reportable 08/23/20 07:19 Tear Drop Cells Not Reportable 08/23/20 07:19 Ovalocytes Not Reportable 08/23/20 07:19 Stomatocytes 2+ 08/23/20 07:19 Helmet Cells Not Reportable 08/23/20 07:19 [place] Bodies Not Reportable 08/23/20 07:19 Cr[place] Rings Not Reportable 08/23/20 07:19 [place] Cells Not Reportable 08/23/20 07:19 Bite Cells Not Reportable 08/23/20 07:19 Crenated Cell Not Reportable 08/23/20 07:19 Elliptocytes Not Reportable 08/23/20 07:19 Acanthocytes (Spur) Not Reportable 08/23/20 07:19 Rouleaux Not Reportable 08/23/20 07:19 Hemoglobin C Crystals Not Reportable 08/23/20 07:19 Schistocytes Not Reportable 08/23/20 07:19 Malaria parasites Not Reportable 08/23/20 07:19 Rock Bodies Not Reportable 08/23/20 07:19 Hem Pathologist Commnt No 08/23/20 07:19 PT 17.4 Sec. (12.2-14.9) H 08/21/20 15:30 INR 1.37 (0.87-1.13) H 08/21/20 15:30 APTT 31.3 Sec. (24.2-36.6) 08/21/20 15:30 D-Dimer 251.44 ng/mlDDU (0-234) H 08/21/20 17:52 ABG pH 7.331 (7.320-7.450) 08/24/20 19:41 POC ABG pCO2 103.6 mmHg (32.0-48.0) H 08/24/20 19:41 POC ABG pO2 163.1 mmHg (83-108) H 08/24/20 19:41 POC ABG HCO3 53.5 08/24/20 19:41 ABG O2 Saturation 99.3 (0-100) 08/24/20 19:41 POC ABG Base Excess 20.3 08/24/20 19:41 ABG Hemoglobin 16.7 (12.0-17.5) 08/24/20 19:41 ABG Oxyhemoglobin 98.6 (94-98) H 08/24/20 19:41 ABG Methemoglobin 0.1 (0.0-1.5) 08/24/20 19:41 ABG Sodium 131.9 mmol/L (136.0-145.0) L 08/24/20 19:41 ABG Potassium 4.2 mmol/L (3.40-4.50) 08/24/20 19:41 ABG Chloride 90.0 mmol/L (98-107) L 08/24/20 19:41 ABG Glucose 153 mg/dL (65-95) H 08/24/20 19:41 Carboxyhemoglobin 0.6 (0.5-1.5) 08/24/20 19:41 FiO2 % 100.0 08/24/20 19:41 Sodium 143 mmol/L (137-145) 08/23/20 07:19 Potassium 4.3 mmol/L (3.6-5.0) 08/23/20 07:19 Chloride 92.3 mmol/L (98-107) L 08/23/20 07:19 Carbon Dioxide 44 mmol/L (22-30) H* D 08/23/20 07:19 Anion Gap 11 mmol/L 08/23/20 07:19 BUN 34 mg/dL (9-20) H 08/23/20 07:19 Creatinine 1.1 mg/dL (0.8-1.3) D 08/23/20 07:19 Estimated GFR > 60 ml/min 08/23/20 07:19 BUN/Creatinine Ratio 31 % 08/23/20 07:19 Glucose 279 mg/dL (75-100) H 08/23/20 07:19 POC Glucose 83 mg/dL (70-105) 08/22/20 07:49 Hemoglobin A1c 5.5 % (4-6) 08/22/20 09:06 Lactic Acid 1.30 mmol/L (0.7-2.0) 08/21/20 15:30 Calcium 9.2 mg/dL (8.4-10.2) 08/23/20 07:19 Total Bilirubin 0.30 mg/dL (0.1-1.2) 08/23/20 07:19 AST 27 units/L (5-40) 08/23/20 07:19 ALT 26 units/L (7-56) 08/23/20 07:19 Alkaline Phosphatase 74 units/L (35-129) 08/23/20 07:19 Lactate Dehydrogenase 303 units/L (91-180) H 08/21/20 17:52 Total Creatine Kinase 51 units/L (55-170) L 08/22/20 19:49 CK-MB (CK-2) 3.0 ng/mL (0.0-4.0) 08/22/20 19:49 CK-MB (CK-2) Rel Index 5.8 (0-4) H 08/22/20 19:49 Troponin T 0.045 ng/mL (0.00-0.029) H 08/21/20 20:38 C-Reactive Protein 18.90 mg/dL (0.00-1.30) H 08/21/20 17:52 NT-Pro-B Natriuret Pep 59947 pg/mL (0-450) H 08/21/20 15:30 Total Protein 6.6 g/dL (6.3-8.2) 08/23/20 07:19 Albumin 3.4 g/dL (3.9-5) L 08/23/20 07:19 Albumin/Globulin Ratio 1.1 % 08/23/20 07:19 Triglycerides 123 mg/dL (2-149) 08/21/20 15:30 Cholesterol 137 mg/dL (50-199) 08/21/20 15:30 LDL Cholesterol Direct 76 mg/dL (50-130) 08/21/20 15:30 HDL Cholesterol 35 mg/dL (40-59) L 08/21/20 15:30 Cholesterol/HDL Ratio 3.91 % 08/21/20 15:30 Procalcitonin 0.43 ng/mL (<0.15) 08/21/20 17:52 Arterial Blood Glucose 153 mg/dL (65-95) H 08/24/20 19:41 Arterial Blood Ionized Calcium 4.5 mg/dL (4.6-5.3) L 08/24/20 19:41 Coronavirus (PCR) Negative (Negative) 08/22/20 Unknown Microbiology: Microbiology 08/21/20 16:38 Peripheral/Venous Blood Culture - Preliminary NO GROWTH AFTER 72 HOURS 08/21/20 16:38 Peripheral/Venous Blood Culture - Preliminary NO GROWTH AFTER 72 HOURS Cohen/IV: Voiding Method Incontinent Active Medications - Current Medications Current Medications: Generic Name Dose Route Start Last Admin Trade Name Freq PRN Reason Stop Dose Admin Acetaminophen 650 mg 08/22/20 08:16 08/24/20 03:54 Acetaminophen 325 Mg Tab PO 650 mg Q4H PRN Administration Pain MILD(1-3)/Fever >100.5/DIXON Albuterol 1 mg 08/22/20 08:31 Albuterol 2.5 Mg/3 Ml Nebu IH Q3H PRN Wheezing Albuterol/Ipratropium 1 ampul 08/23/20 14:00 08/25/20 08:36 Ipratropium/Albuterol Sulfate 3 Ml Ampul.Neb IH Not Given Q6HRT AYAKA Apixaban 5 mg 08/24/20 10:00 08/24/20 22:44 Apixaban 5 Mg Tab PO 5 mg Q12HR AYAKA Administration Azithromycin 500 mg 08/23/20 10:00 08/24/20 10:03 Azithromycin 250 Mg Tab PO 08/26/20 10:01 500 mg QDAY AYAKA Administration Protocol Carvedilol 3.125 mg 08/24/20 10:00 08/24/20 22:45 Carvedilol 3.125 Mg Tab PO 3.125 mg BID AYAKA Administration Divalproex Sodium 250 mg 08/24/20 10:00 08/24/20 22:44 Divalproex Er 250 Mg Tab PO 250 mg BID AYAKA Administration Famotidine 20 mg 08/22/20 10:00 08/24/20 10:01 Famotidine 20 Mg Tab PO 20 mg DAILY AYAKA Administration Hydroxyzine Pamoate 25 mg 08/24/20 14:00 08/24/20 22:45 Hydroxyzine Pamoate 25 Mg Cap PO 25 mg TID AYAKA Administration Ceftriaxone Sodium 2 gm in 100 mls @ 200 mls/hr 08/22/20 10:00 08/24/20 10:02 Rocephin/Ns 2 Gm/100 Ml IV 08/26/20 10:29 200 mls/hr Q24HR AYAKA Administration Protocol Methylprednisolone Sodium Succinate 40 mg 08/22/20 09:00 08/25/20 05:54 Methylprednisolone Sod Succinate 40 Mg/1 Ml Inj IV 40 mg Q8HR AYAKA Administration Morphine Sulfate 2 mg 08/22/20 08:16 08/24/20 03:54 Morphine 2 Mg/1 Ml Inj IV 2 mg Q4H PRN Administration Pain, Moderate (4-6) Nicotine 14 mg 08/24/20 10:00 08/24/20 10:02 Nicotine 14 Mg/24 Hr Patch TD 14 mg QDAY AYAKA Administration Olanzapine 10 mg 08/24/20 10:00 08/24/20 11:01 Olanzapine 10 Mg Tab PO 10 mg DAILY AYAKA Administration Olanzapine 20 mg 08/24/20 22:00 08/24/20 22:48 Olanzapine 10 Mg Tab PO 20 mg HS AYAKA Administration Ondansetron HCl 4 mg 08/22/20 08:16 Ondansetron 4 Mg/2 Ml Inj IV Q8H PRN Nausea And Vomiting Sodium Chloride 10 ml 08/22/20 10:00 08/24/20 22:45 Sodium Chloride 0.9% 10 Ml Flush Syringe IV 10 ml BID AYAKA Administration Sodium Chloride 10 ml 08/22/20 08:16 Sodium Chloride 0.9% 10 Ml Flush Syringe IV PRN PRN LINE FLUSH
[2020-08-25] MEDS: hydrOXYzine PAMOATE 25 MG CAP PO SCH ×3 (09:19→22:04)
[2020-08-25] MEDS: cefTRIAXone/NS 2 GM/100 ML 2 GM/100 ML BAG IV SCH (09:19)
[2020-08-25] MEDS: FAMOTIDINE 20 MG TAB PO SCH (09:20)
[2020-08-25] MEDS: APIXABAN 5 MG TAB PO SCH ×2 (09:20→22:04)
[2020-08-25] MEDS: NICOTINE 14 MG/24 HR PATCH TD SCH (09:20)
[2020-08-25] MEDS: carvediloL 3.125 MG TAB PO SCH ×2 (09:20→22:04)
[2020-08-25] MEDS: AZITHROMYCIN 250 MG TAB PO SCH (09:20)
[2020-08-25] MEDS: DIVALPROEX ER 250 MG TAB PO SCH ×2 (09:20→22:04)
--- NOTE | 2020-08-25 11:27 | Progress Note ---
Assessment and Plan 49 y/o male with known COPD, NABIL, and CHF admitted with acute exacerbation of CHF And COPD with chronic hypercapnic respiratory failure. 08/25/20: Repeat ABG now and make adjustments accordingly. hopeful will not have to intubate patient. Continue IV steroids. Daily net negative state. May need to restart lasix therapy if BP will allow. CXR for tomorrow. 1. Bipap therapy for now 2. Repeat ABG 3. Ok with IV steroids 4. Continue daily net negative state 5. patient is noncompliant with outpatient therapy. Subjective Date of service: 08/25/20 Principal diagnosis: LLL pneumonia Interval history: Still on bipap. No repeat gas this am. patient will awaken to name call. Was placed back on 100% after desats on 70% per RT Objective Vital Signs - 12hr 08/24/20 08/24/20 08/25/20 23:30 23:54 00:00 Temperature 98.4 F Pulse Rate 68 66 Pulse Rate [ From Monitor] Respiratory 19 12 Rate Respiratory Rate [Head] Blood Pressure 114/72 141/80 O2 Sat by Pulse 98 91 Oximetry 08/25/20 08/25/20 08/25/20 00:25 00:30 00:55 Temperature Pulse Rate 75 71 75 Pulse Rate [ From Monitor] Respiratory 17 16 Rate Respiratory Rate [Head] Blood Pressure 141/80 141/80 O2 Sat by Pulse 92 94 Oximetry 08/25/20 08/25/20 08/25/20 01:00 01:30 02:00 Temperature Pulse Rate 73 61 71 Pulse Rate [ From Monitor] Respiratory 15 11 L 12 Rate Respiratory Rate [Head] Blood Pressure 107/66 107/66 112/65 O2 Sat by Pulse 99 100 97 Oximetry 08/25/20 08/25/20 08/25/20 02:30 03:00 03:30 Temperature Pulse Rate 74 73 65 Pulse Rate [ From Monitor] Respiratory 12 13 14 Rate Respiratory Rate [Head] Blood Pressure 112/65 122/69 122/69 O2 Sat by Pulse 99 97 92 Oximetry 08/25/20 08/25/20 08/25/20 04:00 04:15 04:30 Temperature 97.5 F L Pulse Rate 66 69 68 Pulse Rate [ 66 From Monitor] Respiratory 14 16 Rate Respiratory Rate [Head] Blood Pressure 122/69 114/73 O2 Sat by Pulse 92 95 Oximetry 08/25/20 08/25/20 08/25/20 04:35 05:00 05:30 Temperature Pulse Rate 76 67 69 Pulse Rate [ From Monitor] Respiratory 16 9 L 13 Rate Respiratory Rate [Head] Blood Pressure 114/73 143/79 O2 Sat by Pulse 95 65 L 95 Oximetry 08/25/20 08/25/20 08/25/20 06:00 06:30 07:00 Temperature Pulse Rate 73 72 63 Pulse Rate [ From Monitor] Respiratory 14 16 18 Rate Respiratory Rate [Head] Blood Pressure 105/73 105/73 121/74 O2 Sat by Pulse 96 98 Oximetry 08/25/20 08/25/20 08/25/20 07:30 08:00 08:30 Temperature 97.4 F L Pulse Rate 72 69 65 Pulse Rate [ 66 From Monitor] Respiratory 14 16 15 Rate Respiratory Rate [Head] Blood Pressure 121/74 108/69 108/69 O2 Sat by Pulse 98 100 98 Oximetry 08/25/20 08/25/20 08/25/20 08:36 09:00 09:30 Temperature Pulse Rate 60 71 80 Pulse Rate [ From Monitor] Respiratory 16 14 18 Rate Respiratory Rate [Head] Blood Pressure 108/69 110/72 110/72 O2 Sat by Pulse 99 83 L Oximetry 08/25/20 08/25/20 08/25/20 10:00 10:30 11:00 Temperature Pulse Rate 79 71 70 Pulse Rate [ From Monitor] Respiratory 17 14 16 Rate Respiratory 16 Rate [Head] Blood Pressure 135/77 135/77 112/68 O2 Sat by Pulse 91 98 95 Oximetry Constitutional: no acute distress, lethargic Eyes: non-icteric ENT: oropharynx moist Neck: supple, no lymphadenopathy Effort: normal Ascultation: Bilateral: clear Percussion: Bilateral: not dull Tactile fremitus: Bilateral: normal Cardiovascular: regular rate and rhythm Gastrointestinal: soft Extremities: no edema CBC and BMP: 08/23/20 07:19 08/23/20 07:19 ABG, PT/INR, D-dimer: ABG ABG pH 7.331 (7.320-7.450) 08/24/20 19:41 POC ABG pCO2 103.6 mmHg (32.0-48.0) H 08/24/20 19:41 POC ABG pO2 163.1 mmHg (83-108) H 08/24/20 19:41 POC ABG HCO3 53.5 08/24/20 19:41 ABG O2 Saturation 99.3 (0-100) 08/24/20 19:41 PT/INR, D-dimer PT 17.4 Sec. (12.2-14.9) H 08/21/20 15:30 INR 1.37 (0.87-1.13) H 08/21/20 15:30 D-Dimer 251.44 ng/mlDDU (0-234) H 08/21/20 17:52 Abnormal lab findings: Abnormal Labs 08/21/20 08/21/20 08/21/20 15:13 15:30 15:30 RBC Hgb 15.7 H Hct 46.9 H MCV 95 H Plt Count 84 L Lymph % (Auto) 9.0 L [place] % (Auto) 15.8 H Lymph # (Auto) 1.0 L [place] # (Auto) 1.7 H Seg Neutrophils % 74.9 H Seg Neuts % (Manual) Lymphocytes % (Manual) Nucleated RBC % Seg Neutrophils # 7.9 H Lymphocytes # (Manual) PT INR D-Dimer ABG pH POC ABG pCO2 57.9 H POC ABG pO2 178.0 H ABG Oxyhemoglobin ABG Sodium 134.2 L ABG Potassium 5.1 H ABG Chloride 96.0 L ABG Glucose Carboxyhemoglobin 4.3 H Chloride 92.2 L Carbon Dioxide 34 H BUN 47 H Creatinine 3.2 H Glucose 102 H Calcium 8.3 L AST 49 H Lactate Dehydrogenase Total Creatine Kinase CK-MB (CK-2) CK-MB (CK-2) Rel Index Troponin T C-Reactive Protein NT-Pro-B Natriuret Pep Albumin 3.3 L HDL Cholesterol Arterial Blood Glucose Arterial Blood Ionized Calcium 4.0 L 08/21/20 08/21/20 08/21/20 15:30 15:30 17:52 RBC Hgb Hct MCV Plt Count Lymph % (Auto) [place] % (Auto) Lymph # (Auto) [place] # (Auto) Seg Neutrophils % Seg Neuts % (Manual) Lymphocytes % (Manual) Nucleated RBC % Seg Neutrophils # Lymphocytes # (Manual) PT 17.4 H INR 1.37 H D-Dimer ABG pH POC ABG pCO2 POC ABG pO2 ABG Oxyhemoglobin ABG Sodium ABG Potassium ABG Chloride ABG Glucose Carboxyhemoglobin Chloride Carbon Dioxide BUN Creatinine Glucose Calcium AST Lactate Dehydrogenase Total Creatine Kinase CK-MB (CK-2) CK-MB (CK-2) Rel Index Troponin T 0.053 H 0.051 H C-Reactive Protein NT-Pro-B Natriuret Pep 10691 H Albumin HDL Cholesterol 35 L Arterial Blood Glucose Arterial Blood Ionized Calcium 08/21/20 08/21/20 08/21/20 17:52 17:52 20:38 RBC Hgb Hct MCV Plt Count Lymph % (Auto) [place] % (Auto) Lymph # (Auto) [place] # (Auto) Seg Neutrophils % Seg Neuts % (Manual) Lymphocytes % (Manual) Nucleated RBC % Seg Neutrophils # Lymphocytes # (Manual) PT INR D-Dimer 251.44 H ABG pH POC ABG pCO2 POC ABG pO2 ABG Oxyhemoglobin ABG Sodium ABG Potassium ABG Chloride ABG Glucose Carboxyhemoglobin Chloride Carbon Dioxide BUN Creatinine Glucose Calcium AST Lactate Dehydrogenase 303 H Total Creatine Kinase CK-MB (CK-2) CK-MB (CK-2) Rel Index Troponin T 0.045 H C-Reactive Protein 18.90 H NT-Pro-B Natriuret Pep Albumin HDL Cholesterol Arterial Blood Glucose Arterial Blood Ionized Calcium 08/22/20 08/22/20 08/22/20 09:06 15:16 19:49 RBC Hgb Hct MCV Plt Count Lymph % (Auto) [place] % (Auto) Lymph # (Auto) [place] # (Auto) Seg Neutrophils % Seg Neuts % (Manual) Lymphocytes % (Manual) Nucleated RBC % Seg Neutrophils # Lymphocytes # (Manual) PT INR D-Dimer ABG pH POC ABG pCO2 POC ABG pO2 ABG Oxyhemoglobin ABG Sodium ABG Potassium ABG Chloride ABG Glucose Carboxyhemoglobin Chloride Carbon Dioxide BUN Creatinine Glucose Calcium AST Lactate Dehydrogenase Total Creatine Kinase 49 L 51 L CK-MB (CK-2) 4.3 H CK-MB (CK-2) Rel Index 8.7 H 5.4 H 5.8 H Troponin T C-Reactive Protein NT-Pro-B Natriuret Pep Albumin HDL Cholesterol Arterial Blood Glucose Arterial Blood Ionized Calcium 08/23/20 08/23/20 08/24/20 07:19 07:19 09:54 RBC 5.12 H Hgb 16.3 H Hct 49.1 H MCV 96 H Plt Count 113 L Lymph % (Auto) [place] % (Auto) Lymph # (Auto) [place] # (Auto) Seg Neutrophils % Seg Neuts % (Manual) 89.0 H Lymphocytes % (Manual) 2.0 L Nucleated RBC % 1.0 H Seg Neutrophils # Lymphocytes # (Manual) 0.1 L PT INR D-Dimer ABG pH 7.319 L POC ABG pCO2 97.9 H POC ABG pO2 53.2 L ABG Oxyhemoglobin 86.8 L ABG Sodium ABG Potassium ABG Chloride 87.0 L ABG Glucose 202 H Carboxyhemoglobin Chloride 92.3 L Carbon Dioxide 44 H* D BUN 34 H Creatinine Glucose 279 H Calcium AST Lactate Dehydrogenase Total Creatine Kinase CK-MB (CK-2) CK-MB (CK-2) Rel Index Troponin T C-Reactive Protein NT-Pro-B Natriuret Pep Albumin 3.4 L HDL Cholesterol Arterial Blood Glucose 202 H Arterial Blood Ionized Calcium 4.4 L 08/24/20 08/24/20 16:19 19:41 RBC Hgb Hct MCV Plt Count Lymph % (Auto) [place] % (Auto) Lymph # (Auto) [place] # (Auto) Seg Neutrophils % Seg Neuts % (Manual) Lymphocytes % (Manual) Nucleated RBC % Seg Neutrophils # Lymphocytes # (Manual) PT INR D-Dimer ABG pH 7.310 L POC ABG pCO2 101.9 H 103.6 H POC ABG pO2 336.0 H 163.1 H ABG Oxyhemoglobin 99.3 H 98.6 H ABG Sodium 133.7 L 131.9 L ABG Potassium 4.6 H ABG Chloride 89.0 L 90.0 L ABG Glucose 146 H 153 H Carboxyhemoglobin Chloride Carbon Dioxide BUN Creatinine Glucose Calcium AST Lactate Dehydrogenase Total Creatine Kinase CK-MB (CK-2) CK-MB (CK-2) Rel Index Troponin T C-Reactive Protein NT-Pro-B Natriuret Pep Albumin HDL Cholesterol Arterial Blood Glucose 146 H 153 H Arterial Blood Ionized Calcium 4.5 L
--- NOTE | 2020-08-25 12:45 | Progress Note ---
Assessment and Plan - Patient Problems (1) Acute hypoxemic respiratory failure Current Visit: Yes Status: Acute Plan to address problem: 11/2019 echocardiogram reports normal left ventricular systolic function with ejection fraction 55 to 60%. Conservative cardiac management. No cardiac issues, will follow intermittently. Subjective Date of service: 08/25/20 Principal diagnosis: LLL pneumonia Interval history: No cardiac events. Objective Vital Signs Temp Pulse Pulse Pulse Resp Resp Resp 08/25/20 11:00 70 16 08/25/20 10:30 71 14 08/25/20 10:00 79 17 16 08/25/20 09:30 80 18 08/25/20 09:00 71 14 08/25/20 08:36 60 16 08/25/20 08:30 65 15 08/25/20 08:00 97.4 F L 69 66 16 08/25/20 07:30 72 14 08/25/20 07:00 63 18 08/25/20 06:30 72 16 08/25/20 06:00 73 14 08/25/20 05:30 69 13 08/25/20 05:00 67 9 L 08/25/20 04:35 76 16 08/25/20 04:30 68 16 08/25/20 04:15 69 08/25/20 04:00 97.5 F L 66 66 14 08/25/20 03:30 65 14 08/25/20 03:00 73 13 08/25/20 02:30 74 12 08/25/20 02:00 71 12 08/25/20 01:30 61 11 L 08/25/20 01:00 73 15 08/25/20 00:55 75 16 08/25/20 00:30 71 17 08/25/20 00:25 75 08/25/20 00:00 66 12 08/24/20 23:54 98.4 F 08/24/20 23:30 68 19 08/24/20 23:00 70 13 08/24/20 22:45 70 08/24/20 22:30 72 15 08/24/20 22:00 68 16 16 08/24/20 21:30 65 16 08/24/20 21:00 71 16 08/24/20 20:30 76 18 08/24/20 20:14 81 81 18 18 08/24/20 20:10 75 08/24/20 20:00 98.2 F 76 15 08/24/20 19:34 76 11 L 08/24/20 19:00 71 19 08/24/20 18:54 73 15 08/24/20 18:00 08/24/20 17:00 92 H 08/24/20 16:08 82 24 08/24/20 16:00 97.0 F L 82 76 14 08/24/20 15:00 79 08/24/20 14:55 89 24 08/24/20 14:00 79 14 08/24/20 13:00 83 14 BP Pulse Ox 08/25/20 11:00 112/68 95 08/25/20 10:30 135/77 98 08/25/20 10:00 135/77 91 08/25/20 09:30 110/72 83 L 08/25/20 09:00 110/72 08/25/20 08:36 108/69 99 08/25/20 08:30 108/69 98 08/25/20 08:00 108/69 100 08/25/20 07:30 121/74 98 08/25/20 07:00 121/74 98 08/25/20 06:30 105/73 96 08/25/20 06:00 105/73 08/25/20 05:30 143/79 95 08/25/20 05:00 114/73 65 L 08/25/20 04:35 95 08/25/20 04:30 114/73 95 08/25/20 04:15 08/25/20 04:00 122/69 92 08/25/20 03:30 122/69 92 08/25/20 03:00 122/69 97 08/25/20 02:30 112/65 99 08/25/20 02:00 112/65 97 08/25/20 01:30 107/66 100 08/25/20 01:00 107/66 99 08/25/20 00:55 141/80 94 08/25/20 00:30 141/80 92 08/25/20 00:25 08/25/20 00:00 141/80 91 08/24/20 23:54 08/24/20 23:30 114/72 98 08/24/20 23:00 114/72 97 08/24/20 22:45 124/75 07/08/21 22:30 124/75 98 08/24/20 22:00 124/75 98 08/24/20 21:30 112/71 99 08/24/20 21:00 112/71 95 08/24/20 20:30 160/94 95 08/24/20 20:14 140/78 100 08/24/20 20:10 08/24/20 20:00 118/72 96 08/24/20 19:34 160/94 08/24/20 19:00 160/94 98 08/24/20 18:54 122/76 98 08/24/20 18:00 122/76 83 L 08/24/20 17:00 124/74 100 08/24/20 16:08 124/74 98 08/24/20 16:00 124/74 98 08/24/20 15:00 119/81 86 08/24/20 14:55 08/24/20 14:00 141/88 96 08/24/20 13:00 145/79 96 - Physical Examination General: Other (on Bipap) HEENT: Positive: PERRL Neck: Positive: trachea midline Cardiac: Positive: Reg Rate and Rhythm
[2020-08-25] MEDS: MORPHINE 2 MG/1 ML INJ IV PRN (22:30)
[2020-08-26] MEDS: IPRATROPIUM/ALBUTEROL SULFATE 3 ML AMPUL.NEB IH SCH ×4 (02:00→19:59)
--- NOTE | 2020-08-26 02:59 | XRay Report ---
XR chest 1V ap INDICATION / CLINICAL INFORMATION: Hypoxemia. COMPARISON: 08/21/2020. FINDINGS: SUPPORT DEVICES: None. HEART /PULMONARY VASCULATURE: There is cardiomegaly without overt failure. LUNGS / PLEURA: Patchy right basilar airspace opacity is unchanged. Left lung remains clear. No pneum othorax. ADDITIONAL FINDINGS: No significant additional findings. IMPRESSION: Stable airspace opacities within the right mid and lower lung, suspect pneumonia. Signer Name: Surinder Merino MD Signed: 08/26/2020 2:54 AM Workstation Name: [id number]
[2020-08-26 05:11] LABS: Hematocrit 46.8 % (35.5-45.6); Hemoglobin 15.4 gm/dl (11.8-15.2); Mean Corpuscular HGB Conc 33 % (32-34); Mean Corpuscular Volume 96 fl (84-94); Platelet Count 154 K/mm3 (140-440); Red Blood Count 4.88 M/mm3 (3.65-5.03); Red Cell Distribution Width 13.9 % (13.2-15.2)
[2020-08-26] MEDS: methylPREDNISolone Sod Succinate 40 MG/1 ML INJ IV SCH ×3 (05:17→21:18)
[2020-08-26 05:30] LABS: BUN/Creatinine Ratio 36; Blood Urea Nitrogen 29 mg/dL (9-20); Calcium 8.8 mg/dL (8.4-10.2); Hemolysis Index 7
[2020-08-26] MEDS: AZITHROMYCIN 250 MG TAB PO SCH (09:05)
[2020-08-26] MEDS: NICOTINE 14 MG/24 HR PATCH TD SCH (09:06)
[2020-08-26] MEDS: APIXABAN 5 MG TAB PO SCH ×2 (09:06→21:18)
[2020-08-26] MEDS: FAMOTIDINE 20 MG TAB PO SCH (09:06)
[2020-08-26] MEDS: carvediloL 3.125 MG TAB PO SCH ×2 (09:06→21:19)
[2020-08-26] MEDS: hydrOXYzine PAMOATE 25 MG CAP PO SCH ×3 (09:07→20:35)
[2020-08-26] MEDS: DIVALPROEX ER 250 MG TAB PO SCH ×2 (09:07→21:19)
[2020-08-26] MEDS: cefTRIAXone/NS 2 GM/100 ML 2 GM/100 ML BAG IV SCH (09:09)
--- NOTE | 2020-08-26 10:43 | Progress Note ---
Assessment and Plan 1. Community acquired left lower lobe pneumonia 2. COPD Patient had an echocardiogram November 2019 which showed normal left ventricular size and function LVEF 55 to 60%. Plan Cardiac ramos stable continue management as per hospitalist Subjective Date of service: 09/02/20 Principal diagnosis: LLL pneumonia Interval history: No cardiac symptoms Objective Vital Signs Temp Pulse Pulse Pulse Resp Resp BP 08/26/20 09:06 87 125/79 08/26/20 08:00 75 20 08/26/20 07:56 98 F 08/26/20 07:00 67 119/71 08/26/20 06:00 65 113/66 08/26/20 05:00 71 114/66 08/26/20 04:05 69 08/26/20 04:00 69 108/62 08/26/20 03:55 97.9 F 08/26/20 03:00 93 H 109/56 08/26/20 02:00 73 109/56 08/26/20 01:00 85 25 H 121/67 08/26/20 00:02 82 08/26/20 00:00 98.3 F 78 16 124/63 08/25/20 23:00 106 H 25 H 125/59 08/25/20 22:04 85 125/59 08/25/20 22:00 88 16 112/62 08/25/20 21:50 94 H 15 112/62 08/25/20 21:00 103 H 17 112/62 08/25/20 20:44 91 H 08/25/20 20:07 08/25/20 20:00 109/56 08/25/20 19:50 98.3 F 08/25/20 19:00 91 H 14 118/91 08/25/20 18:30 100 H 13 119/61 08/25/20 18:00 84 13 119/61 08/25/20 17:30 89 17 110/66 08/25/20 17:00 73 13 110/66 08/25/20 16:30 84 15 102/64 08/25/20 16:00 98.0 F 73 66 13 102/64 08/25/20 15:30 92 H 26 H 133/77 08/25/20 15:00 85 16 133/77 08/25/20 14:53 08/25/20 14:30 89 13 108/57 08/25/20 14:00 74 108/57 08/25/20 13:30 78 85/52 08/25/20 13:10 08/25/20 13:00 89 114/69 08/25/20 12:30 96 H 18 114/69 08/25/20 12:00 98.9 F 66 66 16 114/69 08/25/20 11:30 66 16 112/68 08/25/20 11:00 70 16 112/68 Pulse Ox 08/26/20 09:06 08/26/20 08:00 100 08/26/20 07:56 08/26/20 07:00 99 08/26/20 06:00 100 08/26/20 05:00 100 08/26/20 04:05 08/26/20 04:00 99 08/26/20 03:55 08/26/20 03:00 98 08/26/20 02:00 97 08/26/20 01:00 100 08/26/20 00:02 08/26/20 00:00 100 08/25/20 23:00 08/25/20 22:04 08/25/20 22:00 89 08/25/20 21:50 08/25/20 21:00 08/25/20 20:44 08/25/20 20:07 96 08/25/20 20:00 08/25/20 19:50 08/25/20 19:00 97 08/25/20 18:30 99 08/25/20 18:00 98 08/25/20 17:30 99 08/25/20 17:00 98 08/25/20 16:30 100 08/25/20 16:00 99 08/25/20 15:30 57 L 08/25/20 15:00 95 08/25/20 14:53 95 08/25/20 14:30 93 08/25/20 14:00 92 08/25/20 13:30 96 08/25/20 13:10 93 08/25/20 13:00 90 08/25/20 12:30 95 08/25/20 12:00 84 08/25/20 11:30 89 08/25/20 11:00 95 - Physical Examination General: Other (on Bipap) HEENT: Positive: PERRL Neck: Positive: trachea midline Cardiac: Positive: Regular Rate, S1/S2, PMI, Laterally Displaced Lungs: Positive: clear to auscultation, No Wheeze, Rales, Rhonchi Neuro: Positive: Grossly Intact Abdomen: Positive: Unremarkable, Soft, Active Bowel Sounds Extremities: Absent: edema - Labs and Meds CBC 08/26/20 Range/Units 04:47 WBC 8.5 (4.5-11.0) K/mm3 RBC 4.88 (3.65-5.03) M/mm3 Hgb 15.4 H (11.8-15.2) gm/dl Hct 46.8 H (35.5-45.6) % Plt Count 154 (140-440) K/mm3 Comprehensive Metabolic Panel 08/26/20 Range/Units 04:47 Sodium 145 (137-145) mmol/L Potassium 5.3 H D (3.6-5.0) mmol/L Chloride 98.2 (98-107) mmol/L Carbon Dioxide 48 H* (22-30) mmol/L BUN 29 H (9-20) mg/dL Creatinine 0.8 (0.8-1.3) mg/dL Glucose 154 H (75-100) mg/dL Calcium 8.8 (8.4-10.2) mg/dL
--- NOTE | 2020-08-26 12:03 | Progress Note ---
Assessment and Plan Assessment and plan: This is a 49-year-old male presents to the emergency department via EMS from [place]. EMS was called by the racebook writer who says that his oxygen saturation was down in the 40s initially. EMS found him to have a an oxygen saturation in the 70s on 2 L via nasal cannula. Initially he was placed on 6 L via nasal cannula and went up into the mid 80s. He was then placed on CPAP and went up to about 92%. He has a history of hypertension, CHF, COPD and has been here previously for hypercapnic respiratory failure. The patient is currently a poor historian secondary to his current medical condition. 08/22/2020 On 8 L nasal cannula oxygen Cardiology consult appreciated 08/23/2020 More comfortable On 8 L nasal cannula oxygen Patient to be transferred to [facility] with remote telemetry 08/24 Patient seen and examined this morning Remains -encephalopathic and on 15 liter of Oxygen. Pysch medications and apixaban had not been restarted since admission, unsure of the accuracy of the med [facility] Reviewed prior hx, patient was admitted in Nov 2019 With shortness of breath, was intubated and diagnosed with PE, COPD exacerbation and discharged on Eliquis and steroids Will obtain ABG on Room air if possible. Will obtain Pulmonary consult CXR is unremarkable, Hold transfer to floor until issues sorted out Restart Eliquis Obtain psych consult patient oriented only to person. 08/25: Pulmonary and psych input noted. Evidence of hypercapnia on ABG noted anticipate some correction with BiPAP. Continue current monitoring. Continue IMCU care as patient is too unstable for transfer to the floors at this time. Is still very agitated and encephalopathic. Again when mental status is improved will be apparent discussion with this patient again about need to be on BiPAP even outpatient ramos. 08/26: wean oxygen as tolerated, will transfer to floor in am if continues to i mprove (1) Acute hypoxemic and hypercapnic respiratory failure Current Visit: Yes Status: Acute Plan to address problem: Patient is on liters nasal cannula oxygen BNP is high Covid ruled out Elevated troponin Possible troponin leak CK and CK-MB are negative (2) Acute exacerbation of CHF (congestive heart failure) Current Visit: Yes Status: Acute Qualifiers: Heart failure type: unspecified Qualified Code(s): I50.9 - Heart failure, unspecified Plan to address problem: BNP is very high and 27,000 11/2019 echocardiogram reports normal left ventricular systolic function with ejection fraction 55 to 60%. Per cardiology no volume overload (3) Pneumonia Current Visit: Yes Status: Acute Plan to address problem: Treat as community-acquired pneumonia Patient on 8 L nasal cannula oxygen Initially on BiPAP Improved Smokes 6 cigarettes a day (4) Suspected 2019 novel coronavirus infection Current Visit: Yes Status: Acute Plan to address problem: Covid ruled out (5) Hypertension Current Visit: Yes Status: Chronic Plan to address problem: Continue antihypertensive (6) acute toxic metabolic encephalopathy (7)DVT prophylaxis Current Visit: Yes Status: Acute Plan to address problem: On heparin and GI prophylaxis History Interval history: Patient seen and examined, more awake and alert, still on high flow at 14 l via salter nasal cannula Hospitalist Physical - Physical exam Narrative exam: General appearance: Present: mild distress, disheveled, well-nourished - EENT Eyes: PERRL, EOM intact ENT: hearing intact, clear oral mucosa Ears: bilateral: normal - Neck Neck: supple, normal ROM - Respiratory Respiratory effort: normal onNC at 14 l Respiratory: bilateral: CTA, rhonchi - Breasts Breasts: normal - Cardiovascular Heart rate: 78 Rhythm: regular Heart Sounds: Present: S1 & S2. Absent: gallop, rub Extremities: pulses intact, No edema, normal color, Full ROM - Gastrointestinal General gastrointestinal: Present: soft, non-tender, non-distended, normal bowel sounds - Genitourinary Male genitourinary: normal - Integumentary Integumentary: clear, warm, dry - Musculoskeletal Musculoskeletal: 1, strength equal bilaterally - Neurologic Neurologic: moves all extremities, aao x1 - Psychiatric Psychiatric: flat affect - Constitutional Vitals: Temp Pulse Resp BP Pulse Ox 98 F 87 20 125/79 100 08/26/20 07:56 08/26/20 09:06 08/26/20 08:00 08/26/20 09:06 08/26/20 08:00 General appearance: Present: mild distress, well-nourished HEART Score - HEART Score Troponin: Troponin T 0.045 ng/mL (0.00-0.029) H 08/21/20 20:38 Results - Labs CBC & Chem 7: 08/26/20 04:47 08/27/20 04:51 Labs: Laboratory Last Values WBC 8.5 K/mm3 (4.5-11.0) 08/26/20 04:47 RBC 4.88 M/mm3 (3.65-5.03) 08/26/20 04:47 Hgb 15.4 gm/dl (11.8-15.2) H 08/26/20 04:47 Hct 46.8 % (35.5-45.6) H 08/26/20 04:47 MCV 96 fl (84-94) H 08/26/20 04:47 MCH 32 pg (28-32) 08/26/20 04:47 MCHC 33 % (32-34) 08/26/20 04:47 RDW 13.9 % (13.2-15.2) 08/26/20 04:47 Plt Count 154 K/mm3 (140-440) 08/26/20 04:47 Lymph % (Auto) 9.0 % (13.4-35.0) L 08/21/20 15:30 Pratt % (Auto) 15.8 % (0.0-7.3) H 08/21/20 15:30 Eos % (Auto) 0.0 % (0.0-4.3) 08/21/20 15:30 Baso % (Auto) 0.3 % (0.0-1.8) 08/21/20 15:30 Lymph # (Auto) 1.0 K/mm3 (1.2-5.4) L 08/21/20 15:30 Pratt # (Auto) 1.7 K/mm3 (0.0-0.8) H 08/21/20 15:30 Eos # (Auto) 0.0 K/mm3 (0.0-0.4) 08/21/20 15:30 Baso # (Auto) 0.0 K/mm3 (0.0-0.1) 08/21/20 15:30 Add Manual Diff Complete 08/23/20 07:19 Total Counted 100 08/23/20 07:19 Seg Neutrophils % Commissioner Of Conciliation 08/23/20 07:19 Seg Neuts % (Manual) 89.0 % (40.0-70.0) H 08/23/20 07:19 Band Neutrophils % 7.0 % 08/23/20 07:19 Lymphocytes % (Manual) 2.0 % (13.4-35.0) L 08/23/20 07:19 Monocytes % (Manual) 2.0 % (0.0-7.3) 08/23/20 07:19 Nucleated RBC % 1.0 % (0.0-0.9) H 08/23/20 07:19 Seg Neutrophils # 7.9 K/mm3 (1.8-7.7) H 08/21/20 15:30 Seg Neutrophils # Man 6.1 K/mm3 (1.8-7.7) 08/23/20 07:19 Band Neutrophils # 0.5 K/mm3 08/23/20 07:19 Lymphocytes # (Manual) 0.1 K/mm3 (1.2-5.4) L 08/23/20 07:19 Abs React Lymphs (Man) 0.0 K/mm3 08/23/20 07:19 Monocytes # (Manual) 0.1 K/mm3 (0.0-0.8) 08/23/20 07:19 Eosinophils # (Manual) 0.0 K/mm3 (0.0-0.4) 08/23/20 07:19 Basophils # (Manual) 0.0 K/mm3 (0.0-0.1) 08/23/20 07:19 Metamyelocytes # 0.0 K/mm3 08/23/20 07:19 Myelocytes # 0.0 K/mm3 08/23/20 07:19 Promyelocytes # 0.0 K/mm3 08/23/20 07:19 Blast Cells # 0.0 K/mm3 08/23/20 07:19 WBC Morphology Not Reportable 08/23/20 07:19 Hypersegmented Neuts Not Reportable 08/23/20 07:19 Hyposegmented Neuts Not Reportable 08/23/20 07:19 Hypogranular Neuts Not Reportable 08/23/20 07:19 Smudge Cells Not Reportable 08/23/20 07:19 Toxic Granulation Not Reportable 08/23/20 07:19 Toxic Vacuolation Not Reportable 08/23/20 07:19 Dohle Bodies Not Reportable 08/23/20 07:19 Pelger-Huet Anomaly Not Reportable 08/23/20 07:19 Malena Rods Not Reportable 08/23/20 07:19 Platelet Estimate Consistent w auto 08/23/20 07:19 Clumped Platelets Not Reportable 08/23/20 07:19 Plt Clumps, EDTA Not Reportable 08/23/20 07:19 Large Platelets Not Reportable 08/23/20 07:19 Giant Platelets Not Reportable 08/23/20 07:19 Platelet Satelliting Not Reportable 08/23/20 07:19 Plt Morphology Comment Not Reportable 08/23/20 07:19 RBC Morphology Not Reportable 08/23/20 07:19 Dimorphic RBCs Not Reportable 08/23/20 07:19 Polychromasia Not Reportable 08/23/20 07:19 Hypochromasia Not Reportable 08/23/20 07:19 Poikilocytosis Not Reportable 08/23/20 07:19 Anisocytosis Not Reportable 08/23/20 07:19 Microcytosis Not Reportable 08/23/20 07:19 Macrocytosis Not Reportable 08/23/20 07:19 Spherocytes Not Reportable 08/23/20 07:19 Pappenheimer Bodies Not Reportable 08/23/20 07:19 Sickle Cells Not Reportable 08/23/20 07:19 Target Cells Not Reportable 08/23/20 07:19 Tear Drop Cells Not Reportable 08/23/20 07:19 Ovalocytes Not Reportable 08/23/20 07:19 Stomatocytes 2+ 08/23/20 07:19 Helmet Cells Not Reportable 08/23/20 07:19 [place] Bodies Not Reportable 08/23/20 07:19 [place] Rings Not Reportable 08/23/20 07:19 Reva Cells Not Reportable 08/23/20 07:19 Bite Cells Not Reportable 08/23/20 07:19 Crenated Cell Not Reportable 08/23/20 07:19 Elliptocytes Not Reportable 08/23/20 07:19 Acanthocytes (Spur) Not Reportable 08/23/20 07:19 Rouleaux Not Reportable 08/23/20 07:19 Hemoglobin C Crystals Not Reportable 08/23/20 07:19 Schistocytes Not Reportable 08/23/20 07:19 Malaria parasites Not Reportable 08/23/20 07:19 Rock Bodies Not Reportable 08/23/20 07:19 Hem Pathologist Commnt No 08/23/20 07:19 PT 17.4 Sec. (12.2-14.9) H 08/21/20 15:30 INR 1.37 (0.87-1.13) H 08/21/20 15:30 APTT 31.3 Sec. (24.2-36.6) 08/21/20 15:30 D-Dimer 251.44 ng/mlDDU (0-234) H 08/21/20 17:52 ABG pH 7.367 (7.320-7.450) 08/25/20 11:22 POC ABG pCO2 87.5 mmHg (32.0-48.0) H 08/25/20 11:22 POC ABG pO2 64.0 mmHg (83-108) L 08/25/20 11:22 POC ABG HCO3 49.1 08/25/20 11:22 ABG O2 Saturation 92.6 (0-100) 08/25/20 11:22 POC ABG Base Excess 18.0 08/25/20 11:22 ABG Hemoglobin 16.3 (12.0-17.5) 08/25/20 11:22 ABG Oxyhemoglobin 91.7 (94-98) L 08/25/20 11:22 ABG Methemoglobin 0.3 (0.0-1.5) 08/25/20 11:22 ABG Sodium 135.7 mmol/L (136.0-145.0) L 08/25/20 11:22 ABG Potassium 4.6 mmol/L (3.40-4.50) H 08/25/20 11:22 ABG Chloride 89.0 mmol/L (98-107) L 08/25/20 11:22 ABG Glucose 137 mg/dL (65-95) H 08/25/20 11:22 Carboxyhemoglobin 0.7 (0.5-1.5) 08/25/20 11:22 FiO2 % 85.0 08/25/20 11:22 Sodium 145 mmol/L (137-145) 08/26/20 04:47 Potassium 5.3 mmol/L (3.6-5.0) H D 08/26/20 04:47 Chloride 98.2 mmol/L (98-107) 08/26/20 04:47 Carbon Dioxide 48 mmol/L (22-30) H* 08/26/20 04:47 Anion Gap 4 mmol/L 08/26/20 04:47 BUN 29 mg/dL (9-20) H 08/26/20 04:47 Creatinine 0.8 mg/dL (0.8-1.3) 08/26/20 04:47 Estimated GFR > 60 ml/min 08/26/20 04:47 BUN/Creatinine Ratio 36 % 08/26/20 04:47 Glucose 154 mg/dL (75-100) H 08/26/20 04:47 POC Glucose 83 mg/dL (70-105) 08/22/20 07:49 Hemoglobin A1c 5.5 % (4-6) 08/22/20 09:06 Lactic Acid 1.30 mmol/L (0.7-2.0) 08/21/20 15:30 Calcium 8.8 mg/dL (8.4-10.2) 08/26/20 04:47 Phosphorus 3.60 mg/dL (2.5-4.5) 08/26/20 04:47 Magnesium 2.40 mg/dL (1.7-2.3) H 08/26/20 04:47 Total Bilirubin 0.30 mg/dL (0.1-1.2) 08/23/20 07:19 AST 27 units/L (5-40) 08/23/20 07:19 ALT 26 units/L (7-56) 08/23/20 07:19 Alkaline Phosphatase 74 units/L (35-129) 08/23/20 07:19 Lactate Dehydrogenase 303 units/L (91-180) H 08/21/20 17:52 Total Creatine Kinase 51 units/L (55-170) L 08/22/20 19:49 CK-MB (CK-2) 3.0 ng/mL (0.0-4.0) 08/22/20 19:49 CK-MB (CK-2) Rel Index 5.8 (0-4) H 08/22/20 19:49 Troponin T 0.045 ng/mL (0.00-0.029) H 08/21/20 20:38 C-Reactive Protein 18.90 mg/dL (0.00-1.30) H 08/21/20 17:52 NT-Pro-B Natriuret Pep 22628 pg/mL (0-450) H 08/21/20 15:30 Total Protein 6.6 g/dL (6.3-8.2) 08/23/20 07:19 Albumin 3.4 g/dL (3.9-5) L 08/23/20 07:19 Albumin/Globulin Ratio 1.1 % 08/23/20 07:19 Triglycerides 123 mg/dL (2-149) 08/21/20 15:30 Cholesterol 137 mg/dL (50-199) 08/21/20 15:30 LDL Cholesterol Direct 76 mg/dL (50-130) 08/21/20 15:30 HDL Cholesterol 35 mg/dL (40-59) L 08/21/20 15:30 Cholesterol/HDL Ratio 3.91 % 08/21/20 15:30 Procalcitonin 0.43 ng/mL (<0.15) 08/21/20 17:52 Arterial Blood Glucose 137 mg/dL (65-95) H 08/25/20 11:22 Arterial Blood Ionized Calcium 4.6 mg/dL (4.6-5.3) 08/25/20 11:22 Coronavirus (PCR) Negative (Negative) 08/22/20 Unknown Microbiology: Microbiology 08/21/20 16:38 Peripheral/Venous Blood Culture - Preliminary NO GROWTH AFTER 4 DAYS 08/21/20 16:38 Peripheral/Venous Blood Culture - Preliminary NO GROWTH AFTER 4 DAYS 08/22/20 18:30 Nares - Right MRSA Culture - Final Cohen/IV: Voiding Method Urinal Active Medications - Current Medications Current Medications: Generic Name Dose Route Start Last Admin Trade Name Freq PRN Reason Stop Dose Admin Acetaminophen 650 mg 08/22/20 08:16 08/24/20 03:54 Acetaminophen 325 Mg Tab PO 650 mg Q4H PRN Administration Pain MILD(1-3)/Fever >100.5/DIXON Albuterol 1 mg 08/22/20 08:31 Albuterol 2.5 Mg/3 Ml Nebu IH Q3H PRN Wheezing Albuterol/Ipratropium 1 ampul 08/23/20 14:00 08/26/20 09:00 Ipratropium/Albuterol Sulfate 3 Ml Ampul.Neb IH 1 ampul Q6HRT AYAKA Administration Apixaban 5 mg 08/24/20 10:00 07/10/21 09:06 Apixaban 5 Mg Tab PO 5 mg Q12HR AYAKA Administration Carvedilol 3.125 mg 08/24/20 10:00 08/26/20 09:06 Carvedilol 3.125 Mg Tab PO 3.125 mg BID AYAKA Administration Divalproex Sodium 250 mg 08/24/20 10:00 08/26/20 09:07 Divalproex Er 250 Mg Tab PO 250 mg BID AYAKA Administration Famotidine 20 mg 08/22/20 10:00 08/26/20 09:06 Famotidine 20 Mg Tab PO 20 mg DAILY AYAKA Administration Hydroxyzine Pamoate 25 mg 08/24/20 14:00 08/26/20 09:07 Hydroxyzine Pamoate 25 Mg Cap PO 25 mg TID AYAKA Administration Methylprednisolone Sodium Succinate 40 mg 08/22/20 09:00 08/26/20 05:17 Methylprednisolone Sod Succinate 40 Mg/1 Ml Inj IV 40 mg Q8HR AYAKA Administration Morphine Sulfate 2 mg 08/22/20 08:16 08/25/20 22:30 Morphine 2 Mg/1 Ml Inj IV 2 mg Q4H PRN Administration Pain, Moderate (4-6) Nicotine 14 mg 08/24/20 10:00 08/26/20 09:06 Nicotine 14 Mg/24 Hr Patch TD 14 mg QDAY AYAKA Administration Olanzapine 10 mg 08/24/20 10:00 08/26/20 09:09 Olanzapine 10 Mg Tab PO 10 mg DAILY AYAKA Administration Olanzapine 20 mg 08/24/20 22:00 08/25/20 22:05 Olanzapine 10 Mg Tab PO 20 mg HS AYAKA Administration Ondansetron HCl 4 mg 08/22/20 08:16 Ondansetron 4 Mg/2 Ml Inj IV Q8H PRN Nausea And Vomiting Sodium Chloride 10 ml 08/22/20 10:00 08/26/20 09:10 Sodium Chloride 0.9% 10 Ml Flush Syringe IV 10 ml BID AYAKA Administration Sodium Chloride 10 ml 08/22/20 08:16 Sodium Chloride 0.9% 10 Ml Flush Syringe IV PRN PRN LINE FLUSH
--- NOTE | 2020-08-26 12:42 | Progress Note ---
Subjective - Reason for Consult Consult date: 08/26/20 Reason for consult: Bipolar - Chief Complaint Chief complaint: Per Nurse Note:Intermittent confusion noted, labile restlessness/agitation. Patient has pulled out multiple IV's this shift, along with monitoring equipment. Restraints initiated per protocol. The patient was seen resting quietly in bed. He reports dong well. He reports sleep and appetite as good. the patient denies any current suicdal/omicidal ideation and denies hallucinations. REVIEW OF SYSTEMS Constitutional: Negative for weight loss ENT: Negative for stridor Respiratory: Negative for cough or hemoptysis All other systems reviewed and are negative MENTAL STATUS EXAMINATION General Appearance and Behavior: Age appropriate, good hygiene, wearing a ppropriate clothes, poor eye contact, irritable Cooperation: uncooperative, guarded Mood: "ok" Affect and affective range: congruent with mood Thought Process: Goal directed Thought Content: Impulsive Speech: normal tone and pace Suicidal Ideation: Not SI Homicidal Ideation: Denies Hallucinations: Denies Delusions: Denies Impulse Control: Impaired Insight and Judgment: Limited insight and judgment, Memory: Abnormal Attention: Distractible Orientation: Alert, oriented RECOMMENDATIONS I agree with home meds Risks, benefits and alternatives of medications discussed with the patient, questions answered and consent obtained from patient. PSYCHOTHERAPY: Supportive psychotherapy provided MEDICAL: Per primary team DELIRIUM PRECAUTIONS: Please re-orient patient frequently, keep lights on during the day, and minimize benzodiazepines and opiates as these medications could worsen patient's confusion. CLOTH SPREADER: Per medical team DISPOSITION: Do not recommend acute inpatient psychiatric hospitalization at this time FOLLOW-UP: Will follow for med management and psych progress Please contact with any questions and/or concerns. Case staffed with Dr. Noriega Mental Status Exam - Vital signs Last Vital Signs Temp 98 F 08/26/20 07:56 Pulse 87 08/26/20 09:06 Resp 20 08/26/20 08:00 BP 125/79 08/26/20 09:06 Pulse Ox 100 08/26/20 08:00
[2020-08-26] MEDS: MORPHINE 2 MG/1 ML INJ IV PRN (20:37)
--- NOTE | 2020-08-26 20:57 | Progress Note ---
Assessment and Plan Imp: 1. COPD exac. 2. CAP 3. A/C respiratory failure, hypoxia/hypercapnea 4. Obesity 5. Polycythemia Rec: 1. Cont. steroids/bronchodilators 2. Completed 5 days of Rocephin/Azithro 3. Goal sats 88-94% 4. Diamox IV x 1; repeat BMP and ABG in AM 5. DVT PPx 6. Oupatient PFTs and PSG; consider home NIV 7. Complex decision-making Plan of care reviewed w/ patient, he understands/agrees Subjective Date of service: 08/26/20 Principal diagnosis: LLL pneumonia Interval history: On O2 via salter cannula. SOB improving. No other current complaints. Active Medications Acetaminophen (Acetaminophen 325 Mg Tab) 650 mg PO Q4H PRN PRN Reason: Pain MILD(1-3)/Fever >100.5/[facility] Last Admin: 08/24/20 03:54 Dose: 650 mg Documented by: Acetazolamide (Acetazolamide 500 Mg Vial) 500 mg IV ONCE ONE Stop: 08/26/20 20:54 Albuterol (Albuterol 2.5 Mg/3 Ml Nebu) 1 mg IH Q3H PRN PRN Reason: Wheezing Albuterol/Ipratropium (Ipratropium/Albuterol Sulfate 3 Ml Ampul.Neb) 1 ampul IH Q6HRT [facility] Last Admin: 08/26/20 19:59 Dose: 1 ampul Documented by: Apixaban (Apixaban 5 Mg Tab) 5 mg PO Q12HR [facility] Last Admin: 08/26/20 09:06 Dose: 5 mg Documented by: Carvedilol (Carvedilol 3.125 Mg Tab) 3.125 mg PO BID [facility] Last Admin: 08/26/20 09:06 Dose: 3.125 mg Documented by: Divalproex Sodium (Divalproex Er 250 Mg Tab) 250 mg PO BID [facility] Last Admin: 08/26/20 09:07 Dose: 250 mg Documented by: Famotidine (Famotidine 20 Mg Tab) 20 mg PO DAILY [facility] Last Admin: 08/26/20 09:06 Dose: 20 mg Documented by: Hydroxyzine Pamoate (Hydroxyzine Pamoate 25 Mg Cap) 25 mg PO TID [facility] Last Admin: 08/26/20 20:35 Dose: 25 mg Documented by: Methylprednisolone Sodium Succinate (Methylprednisolone Sod Succinate 40 Mg/1 Ml Inj) 40 mg IV Q8HR [facility] Last Admin: 08/26/20 15:00 Dose: 40 mg Documented by: Morphine Sulfate (Morphine 2 Mg/1 Ml Inj) 2 mg IV Q4H PRN PRN Reason: Pain, Moderate (4-6) Last Admin: 08/26/20 20:37 Dose: 2 mg Documented by: Nicotine (Nicotine 14 Mg/24 Hr Patch) 14 mg TD QDAY [facility] Last Admin: 08/26/20 09:06 Dose: 14 mg Documented by: Olanzapine (Olanzapine 10 Mg Tab) 10 mg PO DAILY [facility] Last Admin: 08/26/20 09:09 Dose: 10 mg Documented by: Olanzapine (Olanzapine 10 Mg Tab) 20 mg PO HS [facility] Last Admin: 08/25/20 22:05 Dose: 20 mg Documented by: Ondansetron HCl (Ondansetron 4 Mg/2 Ml Inj) 4 mg IV Q8H PRN PRN Reason: Nausea And Vomiting Sodium Chloride (Sodium Chloride 0.9% 10 Ml Flush Syringe) 10 ml IV BID [facility] Last Admin: 08/26/20 09:10 Dose: 10 ml Documented by: Sodium Chloride (Sodium Chloride 0.9% 10 Ml Flush Syringe) 10 ml IV PRN PRN PRN Reason: LINE FLUSH Objective Vital Signs - 12hr 08/26/20 08/26/20 08/26/20 09:00 09:06 10:00 Temperature Pulse Rate 88 87 75 Pulse Rate [ Anterior Bilateral Throughout] Pulse Rate [ From Monitor] Respiratory Rate Respiratory Rate [Anterior Bilateral Throughout] Blood Pressure 125/79 125/79 113/77 O2 Sat by Pulse 100 Oximetry 08/26/20 08/26/20 08/26/20 11:00 12:00 12:01 Temperature 98.2 F Pulse Rate 76 66 61 Pulse Rate [ Anterior Bilateral Throughout] Pulse Rate [ 66 From Monitor] Respiratory Rate Respiratory Rate [Anterior Bilateral Throughout] Blood Pressure 105/78 125/108 O2 Sat by Pulse 95 97 Oximetry 08/26/20 08/26/20 08/26/20 13:00 14:00 14:10 Temperature Pulse Rate 83 71 Pulse Rate [ 86 Anterior Bilateral Throughout] Pulse Rate [ From Monitor] Respiratory Rate Respiratory 20 Rate [Anterior Bilateral Throughout] Blood Pressure 125/75 130/67 O2 Sat by Pulse 93 97 98 Oximetry 08/26/20 08/26/20 08/26/20 15:00 16:00 17:01 Temperature 97.9 F Pulse Rate 68 79 81 Pulse Rate [ Anterior Bilateral Throughout] Pulse Rate [ 66 From Monitor] Respiratory Rate Respiratory Rate [Anterior Bilateral Throughout] Blood Pressure 100/59 105/60 105/60 O2 Sat by Pulse 96 96 92 Oximetry 08/26/20 08/26/20 08/26/20 18:01 20:23 20:37 Temperature Pulse Rate 67 Pulse Rate [ 69 Anterior Bilateral Throughout] Pulse Rate [ From Monitor] Respiratory 16 Rate Respiratory 20 Rate [Anterior Bilateral Throughout] Blood Pressure 117/69 O2 Sat by Pulse 95 99 Oximetry Constitutional: no acute distress, alert Eyes: non-icteric ENT: oropharynx moist Neck: supple, no lymphadenopathy Effort: normal Ascultation: Bilateral: wheezes, rales Cardiovascular: regular rate and rhythm Gastrointestinal: normoactive bowel sounds, soft, non-tender, non-distended Integumentary: normal Extremities: no cyanosis, no edema, pink and warm Neurologic: normal mental status, non-focal exam, pupils equal and round Psychiatric: mood appropriate, affect normal CBC and BMP: 08/26/20 04:47 08/26/20 04:47 ABG, PT/INR, D-dimer: ABG ABG pH 7.367 (7.320-7.450) 08/25/20 11:22 POC ABG pCO2 87.5 mmHg (32.0-48.0) H 08/25/20 11:22 POC ABG pO2 64.0 mmHg (83-108) L 08/25/20 11:22 POC ABG HCO3 49.1 08/25/20 11:22 ABG O2 Saturation 92.6 (0-100) 08/25/20 11:22 PT/INR, D-dimer PT 17.4 Sec. (12.2-14.9) H 08/21/20 15:30 INR 1.37 (0.87-1.13) H 08/21/20 15:30 D-Dimer 251.44 ng/mlDDU (0-234) H 08/21/20 17:52 Abnormal lab findings: Abnormal Labs 08/21/20 08/21/20 08/21/20 15:13 15:30 15:30 RBC Hgb 15.7 H Hct 46.9 H MCV 95 H Plt Count 84 L Lymph % (Auto) 9.0 L Gove % (Auto) 15.8 H Lymph # (Auto) 1.0 L Gove # (Auto) 1.7 H Seg Neutrophils % 74.9 H Seg Neuts % (Manual) Lymphocytes % (Manual) Nucleated RBC % Seg Neutrophils # 7.9 H Lymphocytes # (Manual) PT INR D-Dimer ABG pH POC ABG pCO2 57.9 H POC ABG pO2 178.0 H ABG Oxyhemoglobin ABG Sodium 134.2 L ABG Potassium 5.1 H ABG Chloride 96.0 L ABG Glucose Carboxyhemoglobin 4.3 H Potassium Chloride 92.2 L Carbon Dioxide 34 H BUN 47 H Creatinine 3.2 H Glucose 102 H Calcium 8.3 L Magnesium AST 49 H Lactate Dehydrogenase Total Creatine Kinase CK-MB (CK-2) CK-MB (CK-2) Rel Index Troponin T C-Reactive Protein NT-Pro-B Natriuret Pep Albumin 3.3 L HDL Cholesterol Arterial Blood Glucose Arterial Blood Ionized Calcium 4.0 L 08/21/20 08/21/20 08/21/20 15:30 15:30 17:52 RBC Hgb Hct MCV Plt Count Lymph % (Auto) Gove % (Auto) Lymph # (Auto) Gove # (Auto) Seg Neutrophils % Seg Neuts % (Manual) Lymphocytes % (Manual) Nucleated RBC % Seg Neutrophils # Lymphocytes # (Manual) PT 17.4 H INR 1.37 H D-Dimer ABG pH POC ABG pCO2 POC ABG pO2 ABG Oxyhemoglobin ABG Sodium ABG Potassium ABG Chloride ABG Glucose Carboxyhemoglobin Potassium Chloride Carbon Dioxide BUN Creatinine Glucose Calcium Magnesium AST Lactate Dehydrogenase Total Creatine Kinase CK-MB (CK-2) CK-MB (CK-2) Rel Index Troponin T 0.053 H 0.051 H C-Reactive Protein NT-Pro-B Natriuret Pep 93561 H Albumin HDL Cholesterol 35 L Arterial Blood Glucose Arterial Blood Ionized Calcium 08/21/20 08/21/20 08/21/20 17:52 17:52 20:38 RBC Hgb Hct MCV Plt Count Lymph % (Auto) Gove % (Auto) Lymph # (Auto) Gove # (Auto) Seg Neutrophils % Seg Neuts % (Manual) Lymphocytes % (Manual) Nucleated RBC % Seg Neutrophils # Lymphocytes # (Manual) PT INR D-Dimer 251.44 H ABG pH POC ABG pCO2 POC ABG pO2 ABG Oxyhemoglobin ABG Sodium ABG Potassium ABG Chloride ABG Glucose Carboxyhemoglobin Potassium Chloride Carbon Dioxide BUN Creatinine Glucose Calcium Magnesium AST Lactate Dehydrogenase 303 H Total Creatine Kinase CK-MB (CK-2) CK-MB (CK-2) Rel Index Troponin T 0.045 H C-Reactive Protein 18.90 H NT-Pro-B Natriuret Pep Albumin HDL Cholesterol Arterial Blood Glucose Arterial Blood Ionized Calcium 08/22/20 08/22/20 08/22/20 09:06 15:16 19:49 RBC Hgb Hct MCV Plt Count Lymph % (Auto) Gove % (Auto) Lymph # (Auto) Gove # (Auto) Seg Neutrophils % Seg Neuts % (Manual) Lymphocytes % (Manual) Nucleated RBC % Seg Neutrophils # Lymphocytes # (Manual) PT INR D-Dimer ABG pH POC ABG pCO2 POC ABG pO2 ABG Oxyhemoglobin ABG Sodium ABG Potassium ABG Chloride ABG Glucose Carboxyhemoglobin Potassium Chloride Carbon Dioxide BUN Creatinine Glucose Calcium Magnesium AST Lactate Dehydrogenase Total Creatine Kinase 49 L 51 L CK-MB (CK-2) 4.3 H CK-MB (CK-2) Rel Index 8.7 H 5.4 H 5.8 H Troponin T C-Reactive Protein NT-Pro-B Natriuret Pep Albumin HDL Cholesterol Arterial Blood Glucose Arterial Blood Ionized Calcium 08/23/20 08/23/20 08/24/20 07:19 07:19 09:54 RBC 5.12 H Hgb 16.3 H Hct 49.1 H MCV 96 H Plt Count 113 L Lymph % (Auto) Gove % (Auto) Lymph # (Auto) Gove # (Auto) Seg Neutrophils % Seg Neuts % (Manual) 89.0 H Lymphocytes % (Manual) 2.0 L Nucleated RBC % 1.0 H Seg Neutrophils # Lymphocytes # (Manual) 0.1 L PT INR D-Dimer ABG pH 7.319 L POC ABG pCO2 97.9 H POC ABG pO2 53.2 L ABG Oxyhemoglobin 86.8 L ABG Sodium ABG Potassium ABG Chloride 87.0 L ABG Glucose 202 H Carboxyhemoglobin Potassium Chloride 92.3 L Carbon Dioxide 44 H* D BUN 34 H Creatinine Glucose 279 H Calcium Magnesium AST Lactate Dehydrogenase Total Creatine Kinase CK-MB (CK-2) CK-MB (CK-2) Rel Index Troponin T C-Reactive Protein NT-Pro-B Natriuret Pep Albumin 3.4 L HDL Cholesterol Arterial Blood Glucose 202 H Arterial Blood Ionized Calcium 4.4 L 08/24/20 08/24/20 08/25/20 16:19 19:41 11:22 RBC Hgb Hct MCV Plt Count Lymph % (Auto) Gove % (Auto) Lymph # (Auto) Gove # (Auto) Seg Neutrophils % Seg Neuts % (Manual) Lymphocytes % (Manual) Nucleated RBC % Seg Neutrophils # Lymphocytes # (Manual) PT INR D-Dimer ABG pH 7.310 L POC ABG pCO2 101.9 H 103.6 H 87.5 H POC ABG pO2 336.0 H 163.1 H 64.0 L ABG Oxyhemoglobin 99.3 H 98.6 H 91.7 L ABG Sodium 133.7 L 131.9 L 135.7 L ABG Potassium 4.6 H 4.6 H ABG Chloride 89.0 L 90.0 L 89.0 L ABG Glucose 146 H 153 H 137 H Carboxyhemoglobin Potassium Chloride Carbon Dioxide BUN Creatinine Glucose Calcium Magnesium AST Lactate Dehydrogenase Total Creatine Kinase CK-MB (CK-2) CK-MB (CK-2) Rel Index Troponin T C-Reactive Protein NT-Pro-B Natriuret Pep Albumin HDL Cholesterol Arterial Blood Glucose 146 H 153 H 137 H Arterial Blood Ionized Calcium 4.5 L 08/26/20 08/26/20 04:47 04:47 RBC Hgb 15.4 H Hct 46.8 H MCV 96 H Plt Count Lymph % (Auto) Gove % (Auto) Lymph # (Auto) Gove # (Auto) Seg Neutrophils % Seg Neuts % (Manual) Lymphocytes % (Manual) Nucleated RBC % Seg Neutrophils # Lymphocytes # (Manual) PT INR D-Dimer ABG pH POC ABG pCO2 POC ABG pO2 ABG Oxyhemoglobin ABG Sodium ABG Potassium ABG Chloride ABG Glucose Carboxyhemoglobin Potassium 5.3 H D Chloride Carbon Dioxide 48 H* BUN 29 H Creatinine Glucose 154 H Calcium Magnesium 2.40 H AST Lactate Dehydrogenase Total Creatine Kinase CK-MB (CK-2) CK-MB (CK-2) Rel Index Troponin T C-Reactive Protein NT-Pro-B Natriuret Pep Albumin HDL Cholesterol Arterial Blood Glucose Arterial Blood Ionized Calcium Chest x-ray: report reviewed, image reviewed
[2020-08-26] MEDS ORDERED: ACETAZOLAMIDE IV ONE (22:00)
[2020-08-26] MEDS ORDERED: SODIUM CHLORIDE 0.9% IV ONE (22:00)
[2020-08-27] MEDS: IPRATROPIUM/ALBUTEROL SULFATE 3 ML AMPUL.NEB IH SCH ×3 (03:13→14:48)
[2020-08-27] MEDS: methylPREDNISolone Sod Succinate 40 MG/1 ML INJ IV SCH ×3 (06:00→22:06)
[2020-08-27 06:31] LABS: Blood Urea Nitrogen 23 mg/dL (9-20); Calcium 9.1 mg/dL (8.4-10.2); Hemolysis Index 18
[2020-08-27 06:32] LABS: BUN/Creatinine Ratio 33
[2020-08-27] MEDS: hydrOXYzine PAMOATE 25 MG CAP PO SCH ×3 (08:07→22:05)
[2020-08-27] MEDS: NICOTINE 14 MG/24 HR PATCH TD SCH (09:07)
--- NOTE | 2020-08-27 09:07 | Progress Note ---
Assessment and Plan Assessment and plan: This is a 49-year-old male presents to the emergency department via EMS from [place]. EMS was called by the mica parts sprayer who says that his oxygen saturation was down in the 40s initially. EMS found him to have a an oxygen saturation in the 70s on 2 L via nasal cannula. Initially he was placed on 6 L via nasal cannula and went up into the mid 80s. He was then placed on CPAP and went up to about 92%. He has a history of hypertension, CHF, COPD and has been here previously for hypercapnic respiratory failure. The patient is currently a poor historian secondary to his current medical condition. 08/22/2020 On 8 L nasal cannula oxygen Cardiology consult appreciated 08/23/2020 More comfortable On 8 L nasal cannula oxygen Patient to be transferred to [facility] with remote telemetry 08/24 Patient seen and examined this morning Remains -encephalopathic and on 15 liter of Oxygen. Pysch medications and apixaban had not been restarted since admission, unsure of the accuracy of the med rec Reviewed prior hx, patient was admitted in Nov 2019 With shortness of breath, was intubated and diagnosed with PE, COPD exacerbation and discharged on Eliquis and steroids Will obtain ABG on Room air if possible. Will obtain Pulmonary consult CXR is unremarkable, Hold transfer to floor until issues sorted out Restart Eliquis Obtain psych consult patient oriented only to person. 08/25: Pulmonary and psych input noted. Evidence of hypercapnia on ABG noted anticipate some correction with BiPAP. Continue current monitoring. Continue IMCU care as patient is too unstable for transfer to the floors at this time. Is still very agitated and encephalopathic. Again when mental status is improved will be apparent discussion with this patient again about need to be on BiPAP even outpatient ramos. 08/26: wean oxygen as tolerated, will transfer to floor in am if continues to i mprove 08/27: Patient seen and examined, mental status showing some improvement, Will transfer to [facility] WITH Continuous tele due to bed space. Discussed with nursing staff to continue close monitoring. (1) Acute hypoxemic and hypercapnic respiratory failure Current Visit: Yes Status: Acute Plan to address problem: Patient is on liters nasal cannula oxygen BNP is high Covid ruled out Elevated troponin Possible troponin leak CK and CK-MB are negative (2) Acute exacerbation of CHF (congestive heart failure) Current Visit: Yes Status: Acute Qualifiers: Heart failure type: unspecified Qualified Code(s): I50.9 - Heart failure, unspecified Plan to address problem: BNP is very high and 27,000 11/2019 echocardiogram reports normal left ventricular systolic function with ejection fraction 55 to 60%. Per cardiology no volume overload (3) Pneumonia Current Visit: Yes Status: Acute Plan to address problem: Treat as community-acquired pneumonia Patient on 8 L nasal cannula oxygen Initially on BiPAP Improved Smokes 6 cigarettes a day (4) Suspected 2019 novel coronavirus infection Current Visit: Yes Status: Acute Plan to address problem: Covid ruled out (5) Hypertension Current Visit: Yes Status: Chronic Plan to address problem: Continue antihypertensive (6) acute toxic metabolic encephalopathy (7)DVT prophylaxis Current Visit: Yes Status: Acute Plan to address problem: On heparin and GI prophylaxis History Interval history: Patient seen and examined, more awake and alert, still on high flow at 10 l via salter nasal cannula with saturation of 91% Hospitalist Physical - Physical exam Narrative exam: General appearance: Present: mild distress, well-nourished - EENT Eyes: PERRL, EOM intact ENT: hearing intact, clear oral mucosa Ears: bilateral: normal - Neck Neck: supple, normal ROM - Respiratory Respiratory effort: normal on NC at 10 l Respiratory: bilateral: CTA, rhonchi - Breasts Breasts: normal - Cardiovascular Heart rate: 78 Rhythm: regular Heart Sounds: Present: S1 & S2. Absent: gallop, rub Extremities: pulses intact, No edema, normal color, Full ROM - Gastrointestinal General gastrointestinal: Present: soft, non-tender, non-distended, normal bowel sounds - Genitourinary Male genitourinary: normal - Integumentary Integumentary: clear, warm, dry - Musculoskeletal Musculoskeletal: 1, strength equal bilaterally - Neurologic Neurologic: moves all extremities, aao x2 - Psychiatric Psychiatric: flat affect - Constitutional Vitals: Temp Pulse Resp BP Pulse Ox 98.8 F 62 12 125/80 95 08/27/20 04:00 08/27/20 08:00 08/27/20 08:00 08/27/20 08:00 08/27/20 08:44 General appearance: Present: mild distress, well-nourished HEART Score - HEART Score Troponin: Troponin T 0.045 ng/mL (0.00-0.029) H 08/21/20 20:38 Results - Labs CBC & Chem 7: 08/26/20 04:47 08/27/20 04:51 Labs: Laboratory Last Values WBC 8.5 K/mm3 (4.5-11.0) 08/26/20 04:47 RBC 4.88 M/mm3 (3.65-5.03) 08/26/20 04:47 Hgb 15.4 gm/dl (11.8-15.2) H 08/26/20 04:47 Hct 46.8 % (35.5-45.6) H 08/26/20 04:47 MCV 96 fl (84-94) H 08/26/20 04:47 MCH 32 pg (28-32) 08/26/20 04:47 MCHC 33 % (32-34) 08/26/20 04:47 RDW 13.9 % (13.2-15.2) 08/26/20 04:47 Plt Count 154 K/mm3 (140-440) 08/26/20 04:47 Lymph % (Auto) 9.0 % (13.4-35.0) L 08/21/20 15:30 [facility] % (Auto) 15.8 % (0.0-7.3) H 08/21/20 15:30 Eos % (Auto) 0.0 % (0.0-4.3) 08/21/20 15:30 Baso % (Auto) 0.3 % (0.0-1.8) 08/21/20 15:30 Lymph # (Auto) 1.0 K/mm3 (1.2-5.4) L 08/21/20 15:30 [facility] # (Auto) 1.7 K/mm3 (0.0-0.8) H 08/21/20 15:30 Eos # (Auto) 0.0 K/mm3 (0.0-0.4) 08/21/20 15:30 Baso # (Auto) 0.0 K/mm3 (0.0-0.1) 08/21/20 15:30 Add Manual Diff Complete 08/23/20 07:19 Total Counted 100 08/23/20 07:19 Seg Neutrophils % Document Manager 08/23/20 07:19 Seg Neuts % (Manual) 89.0 % (40.0-70.0) H 08/23/20 07:19 Band Neutrophils % 7.0 % 08/23/20 07:19 Lymphocytes % (Manual) 2.0 % (13.4-35.0) L 08/23/20 07:19 Monocytes % (Manual) 2.0 % (0.0-7.3) 08/23/20 07:19 Nucleated RBC % 1.0 % (0.0-0.9) H 08/23/20 07:19 Seg Neutrophils # 7.9 K/mm3 (1.8-7.7) H 08/21/20 15:30 Seg Neutrophils # Man 6.1 K/mm3 (1.8-7.7) 08/23/20 07:19 Band Neutrophils # 0.5 K/mm3 08/23/20 07:19 Lymphocytes # (Manual) 0.1 K/mm3 (1.2-5.4) L 08/23/20 07:19 Abs React Lymphs (Man) 0.0 K/mm3 08/23/20 07:19 Monocytes # (Manual) 0.1 K/mm3 (0.0-0.8) 08/23/20 07:19 Eosinophils # (Manual) 0.0 K/mm3 (0.0-0.4) 08/23/20 07:19 Basophils # (Manual) 0.0 K/mm3 (0.0-0.1) 08/23/20 07:19 Metamyelocytes # 0.0 K/mm3 08/23/20 07:19 Myelocytes # 0.0 K/mm3 08/23/20 07:19 Promyelocytes # 0.0 K/mm3 08/23/20 07:19 Blast Cells # 0.0 K/mm3 08/23/20 07:19 WBC Morphology Not Reportable 08/23/20 07:19 Hypersegmented Neuts Not Reportable 08/23/20 07:19 Hyposegmented Neuts Not Reportable 08/23/20 07:19 Hypogranular Neuts Not Reportable 08/23/20 07:19 Smudge Cells Not Reportable 08/23/20 07:19 Toxic Granulation Not Reportable 08/23/20 07:19 Toxic Vacuolation Not Reportable 08/23/20 07:19 Dohle Bodies Not Reportable 08/23/20 07:19 Pelger-Huet Anomaly Not Reportable 08/23/20 07:19 Malena Rods Not Reportable 08/23/20 07:19 Platelet Estimate Consistent w auto 08/23/20 07:19 Clumped Platelets Not Reportable 08/23/20 07:19 Plt Clumps, EDTA Not Reportable 08/23/20 07:19 Large Platelets Not Reportable 08/23/20 07:19 Giant Platelets Not Reportable 08/23/20 07:19 Platelet Satelliting Not Reportable 08/23/20 07:19 Plt Morphology Comment Not Reportable 08/23/20 07:19 RBC Morphology Not Reportable 08/23/20 07:19 Dimorphic RBCs Not Reportable 08/23/20 07:19 Polychromasia Not Reportable 08/23/20 07:19 Hypochromasia Not Reportable 08/23/20 07:19 Poikilocytosis Not Reportable 08/23/20 07:19 Anisocytosis Not Reportable 08/23/20 07:19 Microcytosis Not Reportable 08/23/20 07:19 Macrocytosis Not Reportable 08/23/20 07:19 Spherocytes Not Reportable 08/23/20 07:19 Pappenheimer Bodies Not Reportable 08/23/20 07:19 Sickle Cells Not Reportable 08/23/20 07:19 Target Cells Not Reportable 08/23/20 07:19 Tear Drop Cells Not Reportable 08/23/20 07:19 Ovalocytes Not Reportable 08/23/20 07:19 Stomatocytes 2+ 08/23/20 07:19 Helmet Cells Not Reportable 08/23/20 07:19 Herrera-[place] Bodies Not Reportable 08/23/20 07:19 Dyess Rings Not Reportable 08/23/20 07:19 Dain Cells Not Reportable 08/23/20 07:19 Bite Cells Not Reportable 08/23/20 07:19 Crenated Cell Not Reportable 08/23/20 07:19 Elliptocytes Not Reportable 08/23/20 07:19 Acanthocytes (Spur) Not Reportable 08/23/20 07:19 Rouleaux Not Reportable 08/23/20 07:19 Hemoglobin C Crystals Not Reportable 08/23/20 07:19 Schistocytes Not Reportable 08/23/20 07:19 Malaria parasites Not Reportable 08/23/20 07:19 Rock Bodies Not Reportable 08/23/20 07:19 Hem Pathologist Commnt No 08/23/20 07:19 PT 17.4 Sec. (12.2-14.9) H 08/21/20 15:30 INR 1.37 (0.87-1.13) H 08/21/20 15:30 APTT 31.3 Sec. (24.2-36.6) 08/21/20 15:30 D-Dimer 251.44 ng/mlDDU (0-234) H 08/21/20 17:52 ABG pH 7.367 (7.320-7.450) 08/25/20 11:22 POC ABG pCO2 87.5 mmHg (32.0-48.0) H 08/25/20 11:22 POC ABG pO2 64.0 mmHg (83-108) L 08/25/20 11:22 POC ABG HCO3 49.1 08/25/20 11:22 ABG O2 Saturation 92.6 (0-100) 08/25/20 11:22 POC ABG Base Excess 18.0 08/25/20 11:22 ABG Hemoglobin 16.3 (12.0-17.5) 08/25/20 11:22 ABG Oxyhemoglobin 91.7 (94-98) L 08/25/20 11:22 ABG Methemoglobin 0.3 (0.0-1.5) 08/25/20 11:22 ABG Sodium 135.7 mmol/L (136.0-145.0) L 08/25/20 11:22 ABG Potassium 4.6 mmol/L (3.40-4.50) H 08/25/20 11:22 ABG Chloride 89.0 mmol/L (98-107) L 08/25/20 11:22 ABG Glucose 137 mg/dL (65-95) H 08/25/20 11:22 Carboxyhemoglobin 0.7 (0.5-1.5) 08/25/20 11:22 FiO2 % 85.0 08/25/20 11:22 Sodium 140 mmol/L (137-145) 08/27/20 04:51 Potassium 5.1 mmol/L (3.6-5.0) H 08/27/20 04:51 Chloride 98.0 mmol/L (98-107) 08/27/20 04:51 Carbon Dioxide 37 mmol/L (22-30) H D 08/27/20 04:51 Anion Gap 10 mmol/L 08/27/20 04:51 BUN 23 mg/dL (9-20) H 08/27/20 04:51 Creatinine 0.7 mg/dL (0.8-1.3) L 08/27/20 04:51 Estimated GFR > 60 ml/min 08/27/20 04:51 BUN/Creatinine Ratio 33 % 08/27/20 04:51 Glucose 121 mg/dL (75-100) H 08/27/20 04:51 POC Glucose 83 mg/dL (70-105) 08/22/20 07:49 Hemoglobin A1c 5.5 % (4-6) 08/22/20 09:06 Lactic Acid 1.30 mmol/L (0.7-2.0) 08/21/20 15:30 Calcium 9.1 mg/dL (8.4-10.2) 08/27/20 04:51 Phosphorus 3.60 mg/dL (2.5-4.5) 08/26/20 04:47 Magnesium 2.40 mg/dL (1.7-2.3) H 08/26/20 04:47 Total Bilirubin 0.30 mg/dL (0.1-1.2) 08/23/20 07:19 AST 27 units/L (5-40) 08/23/20 07:19 ALT 26 units/L (7-56) 08/23/20 07:19 Alkaline Phosphatase 74 units/L (35-129) 08/23/20 07:19 Lactate Dehydrogenase 303 units/L (91-180) H 08/21/20 17:52 Total Creatine Kinase 51 units/L (55-170) L 08/22/20 19:49 CK-MB (CK-2) 3.0 ng/mL (0.0-4.0) 08/22/20 19:49 CK-MB (CK-2) Rel Index 5.8 (0-4) H 08/22/20 19:49 Troponin T 0.045 ng/mL (0.00-0.029) H 08/21/20 20:38 C-Reactive Protein 18.90 mg/dL (0.00-1.30) H 08/21/20 17:52 NT-Pro-B Natriuret Pep 86798 pg/mL (0-450) H 08/21/20 15:30 Total Protein 6.6 g/dL (6.3-8.2) 08/23/20 07:19 Albumin 3.4 g/dL (3.9-5) L 08/23/20 07:19 Albumin/Globulin Ratio 1.1 % 08/23/20 07:19 Triglycerides 123 mg/dL (2-149) 08/21/20 15:30 Cholesterol 137 mg/dL (50-199) 08/21/20 15:30 LDL Cholesterol Direct 76 mg/dL (50-130) 08/21/20 15:30 HDL Cholesterol 35 mg/dL (40-59) L 08/21/20 15:30 Cholesterol/HDL Ratio 3.91 % 08/21/20 15:30 Procalcitonin 0.43 ng/mL (<0.15) 08/21/20 17:52 Arterial Blood Glucose 137 mg/dL (65-95) H 08/25/20 11:22 Arterial Blood Ionized Calcium 4.6 mg/dL (4.6-5.3) 08/25/20 11:22 Coronavirus (PCR) Negative (Negative) 08/22/20 Unknown Microbiology: Microbiology 08/21/20 16:38 Peripheral/Venous Blood Culture - Final NO GROWTH AFTER 5 DAYS 08/21/20 16:38 Peripheral/Venous Blood Culture - Final NO GROWTH AFTER 5 DAYS Cohen/IV: Voiding Method Urinal Active Medications - Current Medications Current Medications: Generic Name Dose Route Start Last Admin Trade Name Freq PRN Reason Stop Dose Admin Acetaminophen 650 mg 08/22/20 08:16 08/24/20 03:54 Acetaminophen 325 Mg Tab PO 650 mg Q4H PRN Administration Pain MILD(1-3)/Fever >100.5/DIXON Albuterol 1 mg 08/22/20 08:31 Albuterol 2.5 Mg/3 Ml Nebu IH Q3H PRN Wheezing Albuterol/Ipratropium 1 ampul 08/23/20 14:00 08/27/20 07:55 Ipratropium/Albuterol Sulfate 3 Ml Ampul.Neb IH 1 ampul Q6HRT AYAKA Administration Apixaban 5 mg 08/24/20 10:00 08/26/20 21:18 Apixaban 5 Mg Tab PO 5 mg Q12HR AYAKA Administration Carvedilol 3.125 mg 08/24/20 10:00 08/26/20 21:19 Carvedilol 3.125 Mg Tab PO 3.125 mg BID AYAKA Administration Divalproex Sodium 250 mg 08/24/20 10:00 08/26/20 21:19 Divalproex Er 250 Mg Tab PO 250 mg BID AYAKA Administration Famotidine 20 mg 08/22/20 10:00 08/26/20 09:06 Famotidine 20 Mg Tab PO 20 mg DAILY AYAKA Administration Hydroxyzine Pamoate 25 mg 08/24/20 14:00 08/26/20 20:35 Hydroxyzine Pamoate 25 Mg Cap PO 25 mg TID AYAKA Administration Methylprednisolone Sodium Succinate 40 mg 08/22/20 09:00 08/27/20 06:00 Methylprednisolone Sod Succinate 40 Mg/1 Ml Inj IV 40 mg Q8HR AYAKA Administration Morphine Sulfate 2 mg 08/22/20 08:16 08/26/20 20:37 Morphine 2 Mg/1 Ml Inj IV 2 mg Q4H PRN Administration Pain, Moderate (4-6) Nicotine 14 mg 08/24/20 10:00 08/26/20 09:06 Nicotine 14 Mg/24 Hr Patch TD 14 mg QDAY AYAKA Administration Olanzapine 10 mg 08/24/20 10:00 08/26/20 09:09 Olanzapine 10 Mg Tab PO 10 mg DAILY AYAKA Administration Olanzapine 20 mg 08/24/20 22:00 08/26/20 21:19 Olanzapine 10 Mg Tab PO 20 mg HS AYAKA Administration Ondansetron HCl 4 mg 08/22/20 08:16 Ondansetron 4 Mg/2 Ml Inj IV Q8H PRN Nausea And Vomiting Sodium Chloride 10 ml 08/22/20 10:00 08/26/20 21:20 Sodium Chloride 0.9% 10 Ml Flush Syringe IV 10 ml BID AYAKA Administration Sodium Chloride 10 ml 08/22/20 08:16 Sodium Chloride 0.9% 10 Ml Flush Syringe IV PRN PRN LINE FLUSH Sodium Polystyrene Sulfonate 30 gm 08/27/20 09:03 Sodium Polystyrene 15 Gm/60 Ml Oral Liqd PO 08/27/20 09:04 ONCE ONE
[2020-08-27] MEDS: FAMOTIDINE 20 MG TAB PO SCH (09:08)
[2020-08-27] MEDS: DIVALPROEX ER 250 MG TAB PO SCH ×2 (09:09→22:05)
[2020-08-27] MEDS: APIXABAN 5 MG TAB PO SCH ×2 (09:09→22:06)
[2020-08-27] MEDS: carvediloL 3.125 MG TAB PO SCH ×2 (09:10→22:08)
[2020-08-27 09:21] LABS: ABG Base Excess 8.4 mmol/L (-2.0-3.0); ABG HCO3 37.5 mmol/L (20.0-26.0); ABG Methemoglobin 0.5 % (0.0-1.5); ABG Oxygen Saturation 93.7 % (95.0-99.0); ABG PCO2 72.2 mm Hg; ABG PH 7.333 pH Units (7.350-7.450); ABG PO2 69.2 mm Hg (80.0-90.0)
[2020-08-27] MEDS ORDERED: SODIUM POLYSTYRENE 15 GM/60 ML ORAL LIQD PO ONE (10:00)
--- NOTE | 2020-08-27 10:45 | Progress Note ---
Assessment and Plan 1. Community acquired left lower lobe pneumonia 2. COPD Patient had an echocardiogram November 2019 which showed normal left ventricular size and function LVEF 55 to 60%. Plan Cardiac ramos stable continue management as per hospitalist Subjective Date of service: 08/27/20 Principal diagnosis: LLL pneumonia Interval history: No cardiac symptoms Objective Vital Signs Temp Pulse Pulse Pulse Resp Resp Resp 08/27/20 10:00 81 17 16 08/27/20 09:20 63 19 08/27/20 09:10 66 08/27/20 09:01 66 14 08/27/20 08:44 08/27/20 08:20 97.9 F 08/27/20 08:00 68 62 13 08/27/20 07:55 65 20 08/27/20 07:00 53 L 15 08/27/20 06:00 57 L 14 08/27/20 05:00 61 17 08/27/20 04:00 98.8 F 62 62 12 08/27/20 03:50 66 08/27/20 03:13 58 L 18 08/27/20 03:05 58 L 18 08/27/20 03:00 60 12 08/27/20 02:01 56 L 16 08/27/20 01:01 123 H 15 08/27/20 00:00 97.7 F 52 L 18 08/26/20 23:30 67 08/26/20 23:00 08/26/20 22:56 66 18 08/26/20 22:00 69 28 H 08/26/20 21:19 71 08/26/20 21:07 16 08/26/20 21:01 75 08/26/20 20:45 16 08/26/20 20:37 16 08/26/20 20:23 69 20 08/26/20 20:00 98.2 F 74 08/26/20 19:00 70 08/26/20 18:07 83 08/26/20 18:01 67 08/26/20 17:01 81 08/26/20 16:00 97.9 F 79 66 08/26/20 15:00 68 08/26/20 14:10 86 20 08/26/20 14:00 71 08/26/20 13:00 83 08/26/20 12:01 61 08/26/20 12:00 98.2 F 66 66 08/26/20 11:00 76 BP Pulse Ox 08/27/20 10:00 126/77 94 08/27/20 09:20 125/80 95 08/27/20 09:10 96/42 08/27/20 09:01 96/42 89 08/27/20 08:44 95 08/27/20 08:20 08/27/20 08:00 125/80 95 08/27/20 07:55 95 08/27/20 07:00 135/76 99 08/27/20 06:00 132/81 97 08/27/20 05:00 119/77 96 08/27/20 04:00 120/72 97 08/27/20 03:50 08/27/20 03:13 08/27/20 03:05 96 08/27/20 03:00 104/69 96 08/27/20 02:01 113/62 93 08/27/20 01:01 108/62 94 08/27/20 00:00 130/68 98 08/26/20 23:30 08/26/20 23:00 130/65 93 08/26/20 22:56 96 08/26/20 22:00 125/68 96 08/26/20 21:19 127/71 08/26/20 21:07 08/26/20 21:01 127/71 93 08/26/20 20:45 08/26/20 20:37 08/26/20 20:23 99 08/26/20 20:00 124/76 95 08/26/20 19:00 119/83 93 08/26/20 18:07 117/69 95 08/26/20 18:01 117/69 95 08/26/20 17:01 105/60 92 08/26/20 16:00 105/60 96 08/26/20 15:00 100/59 96 08/26/20 14:10 98 08/26/20 14:00 130/67 97 08/26/20 13:00 125/75 93 08/26/20 12:01 125/108 97 08/26/20 12:00 08/26/20 11:00 105/78 95 - Physical Examination General: Other (on Bipap) HEENT: Positive: PERRL Neck: Positive: trachea midline Cardiac: Positive: Regular Rate, S1/S2, PMI, Laterally Displaced. Negative: S3, S4 Lungs: Positive: clear to auscultation, No Wheeze, Rales, Rhonchi Neuro: Positive: Grossly Intact Abdomen: Positive: Unremarkable, Soft, Active Bowel Sounds Extremities: Absent: edema - Labs and Meds Comprehensive Metabolic Panel 08/27/20 Range/Units 04:51 Sodium 140 (137-145) mmol/L Potassium 5.1 H (3.6-5.0) mmol/L Chloride 98.0 (98-107) mmol/L Carbon Dioxide 37 H D (22-30) mmol/L BUN 23 H (9-20) mg/dL Creatinine 0.7 L (0.8-1.3) mg/dL Glucose 121 H (75-100) mg/dL Calcium 9.1 (8.4-10.2) mg/dL
[2020-08-27] MEDS ORDERED: ALBUTEROL 2.5 MG/3 ML NEBU IH PRN (16:48)
--- NOTE | 2020-08-27 19:40 | Progress Note ---
Assessment and Plan Imp: 1. COPD exac. 2. CAP 3. A/C respiratory failure, hypoxia/hypercapnea 4. Obesity 5. Polycythemia Rec: 1. Cont. steroids/bronchodilators 2. Completed 5 days of Rocephin/Azithro 3. Goal sats 88-94% 4. S/p Diamox x 1 on 08/26/2020; hold further Diamox; monitor ABG and BMP 5. DVT PPx 6. Oupatient PFTs and PSG; consider home NIV 7. Complex decision-making Plan of care reviewed w/ patient, he understands/agrees Subjective Date of service: 08/27/20 Principal diagnosis: LLL pneumonia Interval history: On O2 12 liters via salter cannula. SOB improving. No other current complaints. Active Medications Acetaminophen (Acetaminophen 325 Mg Tab) 650 mg PO Q4H PRN PRN Reason: Pain MILD(1-3)/Fever >100.5/[place] Last Admin: 08/24/20 03:54 Dose: 650 mg Documented by: Albuterol (Albuterol 2.5 Mg/3 Ml Nebu) 1 mg IH Q4H PRN PRN Reason: Wheezing Albuterol/Ipratropium (Ipratropium/Albuterol Sulfate 3 Ml Ampul.Neb) 1 ampul IH TIDRT [facility] Apixaban (Apixaban 5 Mg Tab) 5 mg PO Q12HR [facility] Last Admin: 08/27/20 09:09 Dose: 5 mg Documented by: Arformoterol Tartrate (Arformoterol 15 Mcg/2 Ml Nebu) 15 mcg IH Q12HRT [facility] Budesonide (Budesonide 0.5 Mg/2 Ml Nebu) 0.5 mg IH Q12HRT [facility] Carvedilol (Carvedilol 3.125 Mg Tab) 3.125 mg PO BID [facility] Last Admin: 08/27/20 09:10 Dose: Not Given Documented by: Divalproex Sodium (Divalproex Er 250 Mg Tab) 250 mg PO BID [facility] Last Admin: 08/27/20 09:09 Dose: 250 mg Documented by: Famotidine (Famotidine 20 Mg Tab) 20 mg PO DAILY [facility] Last Admin: 08/27/20 09:08 Dose: 20 mg Documented by: Hydroxyzine Pamoate (Hydroxyzine Pamoate 25 Mg Cap) 25 mg PO TID [facility] Last Admin: 08/27/20 17:09 Dose: 25 mg Documented by: Methylprednisolone Sodium Succinate (Methylprednisolone Sod Succinate 40 Mg/1 Ml Inj) 40 mg IV Q8HR [facility] Last Admin: 08/27/20 14:31 Dose: 40 mg Documented by: Morphine Sulfate (Morphine 2 Mg/1 Ml Inj) 2 mg IV Q4H PRN PRN Reason: Pain, Moderate (4-6) Last Admin: 08/26/20 20:37 Dose: 2 mg Documented by: Nicotine (Nicotine 14 Mg/24 Hr Patch) 14 mg TD QDAY [facility] Last Admin: 08/27/20 09:07 Dose: 14 mg Documented by: Olanzapine (Olanzapine 10 Mg Tab) 10 mg PO DAILY [facility] Last Admin: 08/27/20 09:08 Dose: 10 mg Documented by: Olanzapine (Olanzapine 10 Mg Tab) 20 mg PO HS [facility] Last Admin: 08/26/20 21:19 Dose: 20 mg Documented by: Ondansetron HCl (Ondansetron 4 Mg/2 Ml Inj) 4 mg IV Q8H PRN PRN Reason: Nausea And Vomiting Sodium Chloride (Sodium Chloride 0.9% 10 Ml Flush Syringe) 10 ml IV BID [facility] Last Admin: 08/27/20 09:09 Dose: 10 ml Documented by: Sodium Chloride (Sodium Chloride 0.9% 10 Ml Flush Syringe) 10 ml IV PRN PRN PRN Reason: LINE FLUSH Objective Vital Signs - 12hr 08/27/20 08/27/20 08/27/20 07:55 08:00 08:20 Temperature 97.9 F 97.9 F Pulse Rate 68 Pulse Rate [ 65 Anterior Bilateral Throughout] Pulse Rate [ 62 From Monitor] Respiratory 13 Rate Respiratory 20 Rate [Anterior Bilateral Throughout] Respiratory Rate [Head] Blood Pressure 125/80 O2 Sat by Pulse 95 95 Oximetry 08/27/20 08/27/20 08/27/20 08:44 09:01 09:10 Temperature Pulse Rate 66 66 Pulse Rate [ Anterior Bilateral Throughout] Pulse Rate [ From Monitor] Respiratory 14 Rate Respiratory Rate [Anterior Bilateral Throughout] Respiratory Rate [Head] Blood Pressure 96/42 96/42 O2 Sat by Pulse 95 89 Oximetry 08/27/20 08/27/20 08/27/20 09:20 10:00 11:00 Temperature Pulse Rate 63 81 113 H Pulse Rate [ Anterior Bilateral Throughout] Pulse Rate [ From Monitor] Respiratory 19 17 14 Rate Respiratory Rate [Anterior Bilateral Throughout] Respiratory 16 Rate [Head] Blood Pressure 125/80 126/77 121/70 O2 Sat by Pulse 95 94 90 Oximetry 08/27/20 08/27/20 08/27/20 11:50 12:00 12:10 Temperature 98.6 F 98.6 F Pulse Rate 94 H 67 Pulse Rate [ Anterior Bilateral Throughout] Pulse Rate [ 68 From Monitor] Respiratory 13 11 L Rate Respiratory Rate [Anterior Bilateral Throughout] Respiratory Rate [Head] Blood Pressure 110/63 110/63 O2 Sat by Pulse 96 96 Oximetry 08/27/20 08/27/20 08/27/20 12:20 12:30 13:22 Temperature 97.9 F Pulse Rate 80 76 Pulse Rate [ Anterior Bilateral Throughout] Pulse Rate [ From Monitor] Respiratory 17 18 Rate Respiratory Rate [Anterior Bilateral Throughout] Respiratory Rate [Head] Blood Pressure 110/63 110/63 116/74 O2 Sat by Pulse 94 94 95 Oximetry 08/27/20 08/27/20 08/27/20 14:48 16:45 17:43 Temperature Pulse Rate Pulse Rate [ 66 Anterior Bilateral Throughout] Pulse Rate [ From Monitor] Respiratory Rate Respiratory 20 Rate [Anterior Bilateral Throughout] Respiratory Rate [Head] Blood Pressure O2 Sat by Pulse 96 97 Oximetry Constitutional: no acute distress, alert Eyes: non-icteric ENT: oropharynx moist Neck: supple, no lymphadenopathy Effort: normal Ascultation: Bilateral: wheezes, rales Percussion: Bilateral: not dull Tactile fremitus: Bilateral: normal Cardiovascular: regular rate and rhythm Gastrointestinal: normoactive bowel sounds, soft, non-tender, non-distended Integumentary: normal Extremities: no cyanosis, no edema, pink and warm Neurologic: normal mental status, non-focal exam, pupils equal and round Psychiatric: mood appropriate, affect normal CBC and BMP: 08/26/20 04:47 08/27/20 04:51 ABG, PT/INR, D-dimer: ABG ABG pH 7.333 pH Units (7.350-7.450) L 08/27/20 08:40 POC ABG pCO2 87.5 mmHg (32.0-48.0) H 08/25/20 11:22 ABG pCO2 72.2 mm Hg 08/27/20 08:40 POC ABG pO2 64.0 mmHg (83-108) L 08/25/20 11:22 ABG pO2 69.2 mm Hg (80.0-90.0) L 08/27/20 08:40 POC ABG HCO3 49.1 08/25/20 11:22 ABG O2 Saturation 93.7 % (95.0-99.0) L 08/27/20 08:40 PT/INR, D-dimer PT 17.4 Sec. (12.2-14.9) H 08/21/20 15:30 INR 1.37 (0.87-1.13) H 08/21/20 15:30 D-Dimer 251.44 ng/mlDDU (0-234) H 08/21/20 17:52 Abnormal lab findings: Abnormal Labs 08/21/20 08/21/20 08/21/20 15:13 15:30 15:30 RBC Hgb 15.7 H Hct 46.9 H MCV 95 H Plt Count 84 L Lymph % (Auto) 9.0 L [place] % (Auto) 15.8 H Lymph # (Auto) 1.0 L [place] # (Auto) 1.7 H Seg Neutrophils % 74.9 H Seg Neuts % (Manual) Lymphocytes % (Manual) Nucleated RBC % Seg Neutrophils # 7.9 H Lymphocytes # (Manual) PT INR D-Dimer ABG pH POC ABG pCO2 57.9 H POC ABG pO2 178.0 H ABG pO2 ABG HCO3 ABG O2 Saturation ABG Base Excess ABG Oxyhemoglobin ABG Sodium 134.2 L ABG Potassium 5.1 H ABG Chloride 96.0 L ABG Glucose Oxyhemoglobin Carboxyhemoglobin 4.3 H Potassium Chloride 92.2 L Carbon Dioxide 34 H BUN 47 H Creatinine 3.2 H Glucose 102 H Calcium 8.3 L Magnesium AST 49 H Lactate Dehydrogenase Total Creatine Kinase CK-MB (CK-2) CK-MB (CK-2) Rel Index Troponin T C-Reactive Protein NT-Pro-B Natriuret Pep Albumin 3.3 L HDL Cholesterol Arterial Blood Glucose Arterial Blood Ionized Calcium 4.0 L 08/21/20 08/21/20 08/21/20 15:30 15:30 17:52 RBC Hgb Hct MCV Plt Count Lymph % (Auto) [place] % (Auto) Lymph # (Auto) [place] # (Auto) Seg Neutrophils % Seg Neuts % (Manual) Lymphocytes % (Manual) Nucleated RBC % Seg Neutrophils # Lymphocytes # (Manual) PT 17.4 H INR 1.37 H D-Dimer ABG pH POC ABG pCO2 POC ABG pO2 ABG pO2 ABG HCO3 ABG O2 Saturation ABG Base Excess ABG Oxyhemoglobin ABG Sodium ABG Potassium ABG Chloride ABG Glucose Oxyhemoglobin Carboxyhemoglobin Potassium Chloride Carbon Dioxide BUN Creatinine Glucose Calcium Magnesium AST Lactate Dehydrogenase Total Creatine Kinase CK-MB (CK-2) CK-MB (CK-2) Rel Index Troponin T 0.053 H 0.051 H C-Reactive Protein NT-Pro-B Natriuret Pep 35827 H Albumin HDL Cholesterol 35 L Arterial Blood Glucose Arterial Blood Ionized Calcium 08/21/20 08/21/20 08/21/20 17:52 17:52 20:38 RBC Hgb Hct MCV Plt Count Lymph % (Auto) [place] % (Auto) Lymph # (Auto) [place] # (Auto) Seg Neutrophils % Seg Neuts % (Manual) Lymphocytes % (Manual) Nucleated RBC % Seg Neutrophils # Lymphocytes # (Manual) PT INR D-Dimer 251.44 H ABG pH POC ABG pCO2 POC ABG pO2 ABG pO2 ABG HCO3 ABG O2 Saturation ABG Base Excess ABG Oxyhemoglobin ABG Sodium ABG Potassium ABG Chloride ABG Glucose Oxyhemoglobin Carboxyhemoglobin Potassium Chloride Carbon Dioxide BUN Creatinine Glucose Calcium Magnesium AST Lactate Dehydrogenase 303 H Total Creatine Kinase CK-MB (CK-2) CK-MB (CK-2) Rel Index Troponin T 0.045 H C-Reactive Protein 18.90 H NT-Pro-B Natriuret Pep Albumin HDL Cholesterol Arterial Blood Glucose Arterial Blood Ionized Calcium 08/22/20 08/22/20 08/22/20 09:06 15:16 19:49 RBC Hgb Hct MCV Plt Count Lymph % (Auto) [place] % (Auto) Lymph # (Auto) [place] # (Auto) Seg Neutrophils % Seg Neuts % (Manual) Lymphocytes % (Manual) Nucleated RBC % Seg Neutrophils # Lymphocytes # (Manual) PT INR D-Dimer ABG pH POC ABG pCO2 POC ABG pO2 ABG pO2 ABG HCO3 ABG O2 Saturation ABG Base Excess ABG Oxyhemoglobin ABG Sodium ABG Potassium ABG Chloride ABG Glucose Oxyhemoglobin Carboxyhemoglobin Potassium Chloride Carbon Dioxide BUN Creatinine Glucose Calcium Magnesium AST Lactate Dehydrogenase Total Creatine Kinase 49 L 51 L CK-MB (CK-2) 4.3 H CK-MB (CK-2) Rel Index 8.7 H 5.4 H 5.8 H Troponin T C-Reactive Protein NT-Pro-B Natriuret Pep Albumin HDL Cholesterol Arterial Blood Glucose Arterial Blood Ionized Calcium 08/23/20 08/23/20 08/24/20 07:19 07:19 09:54 RBC 5.12 H Hgb 16.3 H Hct 49.1 H MCV 96 H Plt Count 113 L Lymph % (Auto) [place] % (Auto) Lymph # (Auto) [place] # (Auto) Seg Neutrophils % Seg Neuts % (Manual) 89.0 H Lymphocytes % (Manual) 2.0 L Nucleated RBC % 1.0 H Seg Neutrophils # Lymphocytes # (Manual) 0.1 L PT INR D-Dimer ABG pH 7.319 L POC ABG pCO2 97.9 H POC ABG pO2 53.2 L ABG pO2 ABG HCO3 ABG O2 Saturation ABG Base Excess ABG Oxyhemoglobin 86.8 L ABG Sodium ABG Potassium ABG Chloride 87.0 L ABG Glucose 202 H Oxyhemoglobin Carboxyhemoglobin Potassium Chloride 92.3 L Carbon Dioxide 44 H* D BUN 34 H Creatinine Glucose 279 H Calcium Magnesium AST Lactate Dehydrogenase Total Creatine Kinase CK-MB (CK-2) CK-MB (CK-2) Rel Index Troponin T C-Reactive Protein NT-Pro-B Natriuret Pep Albumin 3.4 L HDL Cholesterol Arterial Blood Glucose 202 H Arterial Blood Ionized Calcium 4.4 L 08/24/20 08/24/20 08/25/20 16:19 19:41 11:22 RBC Hgb Hct MCV Plt Count Lymph % (Auto) [place] % (Auto) Lymph # (Auto) [place] # (Auto) Seg Neutrophils % Seg Neuts % (Manual) Lymphocytes % (Manual) Nucleated RBC % Seg Neutrophils # Lymphocytes # (Manual) PT INR D-Dimer ABG pH 7.310 L POC ABG pCO2 101.9 H 103.6 H 87.5 H POC ABG pO2 336.0 H 163.1 H 64.0 L ABG pO2 ABG HCO3 ABG O2 Saturation ABG Base Excess ABG Oxyhemoglobin 99.3 H 98.6 H 91.7 L ABG Sodium 133.7 L 131.9 L 135.7 L ABG Potassium 4.6 H 4.6 H ABG Chloride 89.0 L 90.0 L 89.0 L ABG Glucose 146 H 153 H 137 H Oxyhemoglobin Carboxyhemoglobin Potassium Chloride Carbon Dioxide BUN Creatinine Glucose Calcium Magnesium AST Lactate Dehydrogenase Total Creatine Kinase CK-MB (CK-2) CK-MB (CK-2) Rel Index Troponin T C-Reactive Protein NT-Pro-B Natriuret Pep Albumin HDL Cholesterol Arterial Blood Glucose 146 H 153 H 137 H Arterial Blood Ionized Calcium 4.5 L 08/26/20 08/26/20 08/27/20 04:47 04:47 04:51 RBC Hgb 15.4 H Hct 46.8 H MCV 96 H Plt Count Lymph % (Auto) [place] % (Auto) Lymph # (Auto) [place] # (Auto) Seg Neutrophils % Seg Neuts % (Manual) Lymphocytes % (Manual) Nucleated RBC % Seg Neutrophils # Lymphocytes # (Manual) PT INR D-Dimer ABG pH POC ABG pCO2 POC ABG pO2 ABG pO2 ABG HCO3 ABG O2 Saturation ABG Base Excess ABG Oxyhemoglobin ABG Sodium ABG Potassium ABG Chloride ABG Glucose Oxyhemoglobin Carboxyhemoglobin Potassium 5.3 H D 5.1 H Chloride Carbon Dioxide 48 H* 37 H D BUN 29 H 23 H Creatinine 0.7 L Glucose 154 H 121 H Calcium Magnesium 2.40 H AST Lactate Dehydrogenase Total Creatine Kinase CK-MB (CK-2) CK-MB (CK-2) Rel Index Troponin T C-Reactive Protein NT-Pro-B Natriuret Pep Albumin HDL Cholesterol Arterial Blood Glucose Arterial Blood Ionized Calcium 08/27/20 08:40 RBC Hgb Hct MCV Plt Count Lymph % (Auto) [place] % (Auto) Lymph # (Auto) [place] # (Auto) Seg Neutrophils % Seg Neuts % (Manual) Lymphocytes % (Manual) Nucleated RBC % Seg Neutrophils # Lymphocytes # (Manual) PT INR D-Dimer ABG pH 7.333 L POC ABG pCO2 POC ABG pO2 ABG pO2 69.2 L ABG HCO3 37.5 H ABG O2 Saturation 93.7 L ABG Base Excess 8.4 H ABG Oxyhemoglobin ABG Sodium ABG Potassium ABG Chloride ABG Glucose Oxyhemoglobin 91.9 L Carboxyhemoglobin Potassium Chloride Carbon Dioxide BUN Creatinine Glucose Calcium Magnesium AST Lactate Dehydrogenase Total Creatine Kinase CK-MB (CK-2) CK-MB (CK-2) Rel Index Troponin T C-Reactive Protein NT-Pro-B Natriuret Pep Albumin HDL Cholesterol Arterial Blood Glucose Arterial Blood Ionized Calcium Chest x-ray: report reviewed, image reviewed
[2020-08-27] MEDS: ARFORMOTEROL 15 MCG/2 ML NEBU IH SCH (22:16)
[2020-08-27] MEDS: BUDESONIDE 0.5 MG/2 ML NEBU IH SCH (22:16)
[2020-08-28] MEDS: methylPREDNISolone Sod Succinate 40 MG/1 ML INJ IV SCH ×3 (05:31→22:20)
[2020-08-28] MEDS: BUDESONIDE 0.5 MG/2 ML NEBU IH SCH ×2 (07:57→19:27)
[2020-08-28] MEDS: ARFORMOTEROL 15 MCG/2 ML NEBU IH SCH ×2 (07:57→19:27)
[2020-08-28] MEDS: IPRATROPIUM/ALBUTEROL SULFATE 3 ML AMPUL.NEB IH SCH ×3 (07:57→19:27)
[2020-08-28 08:23] LABS: Hematocrit 50.2 % (35.5-45.6); Hemoglobin 16.7 gm/dl (11.8-15.2); Mean Corpuscular HGB Conc 33 % (32-34); Mean Corpuscular Volume 95 fl (84-94); Platelet Count 162 K/mm3 (140-440); Red Blood Count 5.31 M/mm3 (3.65-5.03); Red Cell Distribution Width 14.1 % (13.2-15.2)
[2020-08-28 08:46] LABS: Blood Urea Nitrogen 25 mg/dL (9-20); Calcium 8.5 mg/dL (8.4-10.2); Hemolysis Index 5
[2020-08-28 08:47] LABS: BUN/Creatinine Ratio 36
[2020-08-28] MEDS: hydrOXYzine PAMOATE 25 MG CAP PO SCH ×4 (09:24→22:20)
[2020-08-28] MEDS: carvediloL 3.125 MG TAB PO SCH ×2 (09:24→22:20)
[2020-08-28] MEDS: DIVALPROEX ER 250 MG TAB PO SCH ×2 (09:24→22:20)
[2020-08-28] MEDS: FAMOTIDINE 20 MG TAB PO SCH (09:25)
[2020-08-28] MEDS: NICOTINE 14 MG/24 HR PATCH TD SCH (09:25)
[2020-08-28] MEDS: APIXABAN 5 MG TAB PO SCH ×2 (09:25→22:20)
--- NOTE | 2020-08-28 11:00 | Progress Note ---
Assessment and Plan Assessment and plan: This is a 49-year-old male presents to the emergency department via EMS from [place]. EMS was called by the nursery attendant who says that his oxygen saturation was down in the 40s initially. EMS found him to have a an oxygen saturation in the 70s on 2 L via nasal cannula. Initially he was placed on 6 L via nasal cannula and went up into the mid 80s. He was then placed on CPAP and went up to about 92%. He has a history of hypertension, CHF, COPD and has been here previously for hypercapnic respiratory failure. The patient is currently a poor historian secondary to his current medical condition. 08/22/2020 On 8 L nasal cannula oxygen Cardiology consult appreciated 08/23/2020 More comfortable On 8 L nasal cannula oxygen Patient to be transferred to [facility] with remote telemetry 08/24 Patient seen and examined this morning Remains -encephalopathic and on 15 liter of Oxygen. Pysch medications and apixaban had not been restarted since admission, unsure of the accuracy of the med rec Reviewed prior hx, patient was admitted in Nov 2019 With shortness of breath, was intubated and diagnosed with PE, COPD exacerbation and discharged on Eliquis and steroids Will obtain ABG on Room air if possible. Will obtain Pulmonary consult CXR is unremarkable, Hold transfer to floor until issues sorted out Restart Eliquis Obtain psych consult patient oriented only to person. 08/25: Pulmonary and psych input noted. Evidence of hypercapnia on ABG noted anticipate some correction with BiPAP. Continue current monitoring. Continue IMCU care as patient is too unstable for transfer to the floors at this time. Is still very agitated and encephalopathic. Again when mental status is improved will be apparent discussion with this patient again about need to be on BiPAP even outpatient ramos. 08/26: wean oxygen as tolerated, will transfer to floor in am if continues to im prove 08/27: Patient seen and examined, mental status showing some improvement, Will transfer to [facility] WITH Continuous tele due to bed space. Discussed with nursing staff to continue close monitoring. 08/28: Patient continues to show remarkable improvement. I did have extensive discussion with the patient again about why it is important to use his BiPAP due to hypercapnic respiratory failure he verbalized understanding he is to be discharged with BiPAP back to his facility. Brief summary patient is a 49-year-old male with a history of COPD hypercapnia and presumed underlining bipolar disease currently resident of [place]. He has been admitted here in the last 2 months with the same symptom presentation which improved with BiPAP use. Anticipate discharge in 2 to 3 days and will need home O2 eval. Continue aggressive weaning of oxygen (1) Acute hypoxemic and hypercapnic respiratory failure Current Visit: Yes Status: Acute Plan to address problem: Patient is on liters nasal cannula oxygen BNP is high Covid ruled out Elevated troponin Possible troponin leak CK and CK-MB are negative (2) Acute exacerbation of CHF (congestive heart failure) Current Visit: Yes Status: Acute Qualifiers: Heart failure type: unspecified Qualified Code(s): I50.9 - Heart failure, unspecified Plan to address problem: BNP is very high and 27,000 11/2019 echocardiogram reports normal left ventricular systolic function with ejection fraction 55 to 60%. Per cardiology no volume overload (3) Pneumonia Current Visit: Yes Status: Acute Plan to address problem: Treat as community-acquired pneumonia Patient on 8 L nasal cannula oxygen Initially on BiPAP Improved Smokes 6 cigarettes a day (4) Suspected 2019 novel coronavirus infection Current Visit: Yes Status: Acute Plan to address problem: Covid ruled out (5) Hypertension Current Visit: Yes Status: Chronic Plan to address problem: Continue antihypertensive (6) acute toxic metabolic encephalopathy (7)DVT prophylaxis Current Visit: Yes Status: Acute Plan to address problem: On heparin and GI prophylaxis History Interval history: Patient seen and examined, more awake and alert, down to 8 L oxygen this morning understands the importance of using the BiPAP. Hospitalist Physical - Physical exam Narrative exam: General appearance: Present: No distress, well-nourished - EENT Eyes: PERRL, EOM intact ENT: hearing intact, clear oral mucosa Ears: bilateral: normal - Neck Neck: supple, normal ROM - Respiratory Respiratory effort: normal on NC at 10 l Respiratory: bilateral: CTA, rhonchi - Breasts Breasts: normal - Cardiovascular Heart rate: 78 Rhythm: regular Heart Sounds: Present: S1 & S2. Absent: gallop, rub Extremities: pulses intact, No edema, normal color, Full ROM - Gastrointestinal General gastrointestinal: Present: soft, non-tender, non-distended, normal bowel sounds - Genitourinary Male genitourinary: normal - Integumentary Integumentary: clear, warm, dry - Musculoskeletal Musculoskeletal: 1, strength equal bilaterally - Neurologic Neurologic: moves all extremities, aao x2 - Psychiatric Psychiatric: flat affect - Constitutional Vitals: Temp Pulse Resp BP Pulse Ox 97.1 F L 66 18 127/80 98 08/28/20 05:03 08/28/20 09:24 08/28/20 07:57 08/28/20 05:03 08/28/20 07:57 General appearance: Present: mild distress, well-nourished HEART Score - HEART Score Troponin: Troponin T 0.045 ng/mL (0.00-0.029) H 08/21/20 20:38 Results - Labs CBC & Chem 7: 08/28/20 08:05 08/28/20 08:05 Labs: Laboratory Last Values WBC 9.6 K/mm3 (4.5-11.0) 08/28/20 08:05 RBC 5.31 M/mm3 (3.65-5.03) H 08/28/20 08:05 Hgb 16.7 gm/dl (11.8-15.2) H 08/28/20 08:05 Hct 50.2 % (35.5-45.6) H 08/28/20 08:05 MCV 95 fl (84-94) H 08/28/20 08:05 MCH 31 pg (28-32) 08/28/20 08:05 MCHC 33 % (32-34) 08/28/20 08:05 RDW 14.1 % (13.2-15.2) 08/28/20 08:05 Plt Count 162 K/mm3 (140-440) 08/28/20 08:05 Lymph % (Auto) 9.0 % (13.4-35.0) L 08/21/20 15:30 Hughes % (Auto) 15.8 % (0.0-7.3) H 08/21/20 15:30 Eos % (Auto) 0.0 % (0.0-4.3) 08/21/20 15:30 Baso % (Auto) 0.3 % (0.0-1.8) 08/21/20 15:30 Lymph # (Auto) 1.0 K/mm3 (1.2-5.4) L 08/21/20 15:30 Hughes # (Auto) 1.7 K/mm3 (0.0-0.8) H 08/21/20 15:30 Eos # (Auto) 0.0 K/mm3 (0.0-0.4) 08/21/20 15:30 Baso # (Auto) 0.0 K/mm3 (0.0-0.1) 08/21/20 15:30 Add Manual Diff Complete 08/23/20 07:19 Total Counted 100 08/23/20 07:19 Seg Neutrophils % Bods Developer 08/23/20 07:19 Seg Neuts % (Manual) 89.0 % (40.0-70.0) H 08/23/20 07:19 Band Neutrophils % 7.0 % 08/23/20 07:19 Lymphocytes % (Manual) 2.0 % (13.4-35.0) L 08/23/20 07:19 Monocytes % (Manual) 2.0 % (0.0-7.3) 08/23/20 07:19 Nucleated RBC % 1.0 % (0.0-0.9) H 08/23/20 07:19 Seg Neutrophils # 7.9 K/mm3 (1.8-7.7) H 08/21/20 15:30 Seg Neutrophils # Man 6.1 K/mm3 (1.8-7.7) 08/23/20 07:19 Band Neutrophils # 0.5 K/mm3 08/23/20 07:19 Lymphocytes # (Manual) 0.1 K/mm3 (1.2-5.4) L 08/23/20 07:19 Abs React Lymphs (Man) 0.0 K/mm3 08/23/20 07:19 Monocytes # (Manual) 0.1 K/mm3 (0.0-0.8) 08/23/20 07:19 Eosinophils # (Manual) 0.0 K/mm3 (0.0-0.4) 08/23/20 07:19 Basophils # (Manual) 0.0 K/mm3 (0.0-0.1) 08/23/20 07:19 Metamyelocytes # 0.0 K/mm3 08/23/20 07:19 Myelocytes # 0.0 K/mm3 08/23/20 07:19 Promyelocytes # 0.0 K/mm3 08/23/20 07:19 Blast Cells # 0.0 K/mm3 08/23/20 07:19 WBC Morphology Not Reportable 08/23/20 07:19 Hypersegmented Neuts Not Reportable 08/23/20 07:19 Hyposegmented Neuts Not Reportable 08/23/20 07:19 Hypogranular Neuts Not Reportable 08/23/20 07:19 Smudge Cells Not Reportable 08/23/20 07:19 Toxic Granulation Not Reportable 08/23/20 07:19 Toxic Vacuolation Not Reportable 08/23/20 07:19 Dohle Bodies Not Reportable 08/23/20 07:19 Pelger-Huet Anomaly Not Reportable 08/23/20 07:19 Malena Rods Not Reportable 08/23/20 07:19 Platelet Estimate Consistent w auto 08/23/20 07:19 Clumped Platelets Not Reportable 08/23/20 07:19 Plt Clumps, EDTA Not Reportable 08/23/20 07:19 Large Platelets Not Reportable 08/23/20 07:19 Giant Platelets Not Reportable 08/23/20 07:19 Platelet Satelliting Not Reportable 08/23/20 07:19 Plt Morphology Comment Not Reportable 08/23/20 07:19 RBC Morphology Not Reportable 08/23/20 07:19 Dimorphic RBCs Not Reportable 08/23/20 07:19 Polychromasia Not Reportable 08/23/20 07:19 Hypochromasia Not Reportable 08/23/20 07:19 Poikilocytosis Not Reportable 08/23/20 07:19 Anisocytosis Not Reportable 08/23/20 07:19 Microcytosis Not Reportable 08/23/20 07:19 Macrocytosis Not Reportable 08/23/20 07:19 Spherocytes Not Reportable 08/23/20 07:19 Pappenheimer Bodies Not Reportable 08/23/20 07:19 Sickle Cells Not Reportable 08/23/20 07:19 Target Cells Not Reportable 08/23/20 07:19 Tear Drop Cells Not Reportable 08/23/20 07:19 Ovalocytes Not Reportable 08/23/20 07:19 Stomatocytes 2+ 08/23/20 07:19 Helmet Cells Not Reportable 08/23/20 07:19 Herrera-[place] Bodies Not Reportable 08/23/20 07:19 [place] Rings Not Reportable 08/23/20 07:19 Dain Cells Not Reportable 08/23/20 07:19 Bite Cells Not Reportable 08/23/20 07:19 Crenated Cell Not Reportable 08/23/20 07:19 Elliptocytes Not Reportable 08/23/20 07:19 Acanthocytes (Spur) Not Reportable 08/23/20 07:19 Rouleaux Not Reportable 08/23/20 07:19 Hemoglobin C Crystals Not Reportable 08/23/20 07:19 Schistocytes Not Reportable 08/23/20 07:19 Malaria parasites Not Reportable 08/23/20 07:19 Rock Bodies Not Reportable 08/23/20 07:19 Hem Pathologist Commnt No 08/23/20 07:19 PT 17.4 Sec. (12.2-14.9) H 08/21/20 15:30 INR 1.37 (0.87-1.13) H 08/21/20 15:30 APTT 31.3 Sec. (24.2-36.6) 08/21/20 15:30 D-Dimer 251.44 ng/mlDDU (0-234) H 08/21/20 17:52 ABG pH 7.333 pH Units (7.350-7.450) L 08/27/20 08:40 POC ABG pCO2 87.5 mmHg (32.0-48.0) H 08/25/20 11:22 ABG pCO2 72.2 mm Hg 08/27/20 08:40 POC ABG pO2 64.0 mmHg (83-108) L 08/25/20 11:22 ABG pO2 69.2 mm Hg (80.0-90.0) L 08/27/20 08:40 POC ABG HCO3 49.1 08/25/20 11:22 ABG HCO3 37.5 mmol/L (20.0-26.0) H 08/27/20 08:40 ABG O2 Saturation 93.7 % (95.0-99.0) L 08/27/20 08:40 ABG O2 Content 19.7 (0.0-44) 08/27/20 08:40 POC ABG Base Excess 18.0 08/25/20 11:22 ABG Base Excess 8.4 mmol/L (-2.0-3.0) H 08/27/20 08:40 ABG Hemoglobin 15.3 gm/dl (14.0-18.0) 08/27/20 08:40 ABG Oxyhemoglobin 91.7 (94-98) L 08/25/20 11:22 ABG Carboxyhemoglobin 1.5 % (0.0-5.0) 08/27/20 08:40 ABG Methemoglobin 0.5 % (0.0-1.5) 08/27/20 08:40 ABG Sodium 135.7 mmol/L (136.0-145.0) L 08/25/20 11:22 ABG Potassium 4.6 mmol/L (3.40-4.50) H 08/25/20 11:22 ABG Chloride 89.0 mmol/L (98-107) L 08/25/20 11:22 ABG Glucose 137 mg/dL (65-95) H 08/25/20 11:22 Oxyhemoglobin 91.9 % (95.0-99.0) L 08/27/20 08:40 Carboxyhemoglobin 0.7 (0.5-1.5) 08/25/20 11:22 FiO2 68 % 08/27/20 08:40 FiO2 % 85.0 08/25/20 11:22 Sodium 141 mmol/L (137-145) 08/28/20 08:05 Potassium 5.0 mmol/L (3.6-5.0) 08/28/20 08:05 Chloride 100.9 mmol/L (98-107) 08/28/20 08:05 Carbon Dioxide 33 mmol/L (22-30) H 08/28/20 08:05 Anion Gap 12 mmol/L 08/28/20 08:05 BUN 25 mg/dL (9-20) H 08/28/20 08:05 Creatinine 0.7 mg/dL (0.8-1.3) L 08/28/20 08:05 Estimated GFR > 60 ml/min 08/28/20 08:05 BUN/Creatinine Ratio 36 % 08/28/20 08:05 Glucose 138 mg/dL (75-100) H 08/28/20 08:05 POC Glucose 83 mg/dL (70-105) 08/22/20 07:49 Hemoglobin A1c 5.5 % (4-6) 08/22/20 09:06 Lactic Acid 1.30 mmol/L (0.7-2.0) 08/21/20 15:30 Calcium 8.5 mg/dL (8.4-10.2) 08/28/20 08:05 Phosphorus 3.60 mg/dL (2.5-4.5) 08/26/20 04:47 Magnesium 2.40 mg/dL (1.7-2.3) H 08/26/20 04:47 Total Bilirubin 0.30 mg/dL (0.1-1.2) 08/23/20 07:19 AST 27 units/L (5-40) 08/23/20 07:19 ALT 26 units/L (7-56) 08/23/20 07:19 Alkaline Phosphatase 74 units/L (35-129) 08/23/20 07:19 Lactate Dehydrogenase 303 units/L (91-180) H 08/21/20 17:52 Total Creatine Kinase 51 units/L (55-170) L 08/22/20 19:49 CK-MB (CK-2) 3.0 ng/mL (0.0-4.0) 08/22/20 19:49 CK-MB (CK-2) Rel Index 5.8 (0-4) H 08/22/20 19:49 Troponin T 0.045 ng/mL (0.00-0.029) H 08/21/20 20:38 C-Reactive Protein 18.90 mg/dL (0.00-1.30) H 08/21/20 17:52 NT-Pro-B Natriuret Pep 48928 pg/mL (0-450) H 08/21/20 15:30 Total Protein 6.6 g/dL (6.3-8.2) 08/23/20 07:19 Albumin 3.4 g/dL (3.9-5) L 08/23/20 07:19 Albumin/Globulin Ratio 1.1 % 08/23/20 07:19 Triglycerides 123 mg/dL (2-149) 08/21/20 15:30 Cholesterol 137 mg/dL (50-199) 08/21/20 15:30 LDL Cholesterol Direct 76 mg/dL (50-130) 08/21/20 15:30 HDL Cholesterol 35 mg/dL (40-59) L 08/21/20 15:30 Cholesterol/HDL Ratio 3.91 % 08/21/20 15:30 Procalcitonin 0.43 ng/mL (<0.15) 08/21/20 17:52 Arterial Blood Glucose 137 mg/dL (65-95) H 08/25/20 11:22 Arterial Blood Ionized Calcium 4.6 mg/dL (4.6-5.3) 08/25/20 11:22 Coronavirus (PCR) Negative (Negative) 08/22/20 Unknown Cohen/IV: Voiding Method Urinal Active Medications - Current Medications Current Medications: Generic Name Dose Route Start Last Admin Trade Name Freq PRN Reason Stop Dose Admin Acetaminophen 650 mg 08/22/20 08:16 08/24/20 03:54 Acetaminophen 325 Mg Tab PO 650 mg Q4H PRN Administration Pain MILD(1-3)/Fever >100.5/DIXON Albuterol 1 mg 08/27/20 16:48 Albuterol 2.5 Mg/3 Ml Nebu IH Q4H PRN Wheezing Albuterol/Ipratropium 1 ampul 08/28/20 08:00 08/28/20 07:57 Ipratropium/Albuterol Sulfate 3 Ml Ampul.Neb IH Not Given TIDRT AYAKA Apixaban 5 mg 08/24/20 10:00 08/28/20 09:25 Apixaban 5 Mg Tab PO 5 mg Q12HR AYAKA Administration Arformoterol Tartrate 15 mcg 08/27/20 20:00 08/28/20 07:57 Arformoterol 15 Mcg/2 Ml Nebu IH 15 mcg Q12HRT AYAKA Administration Budesonide 0.5 mg 08/27/20 20:00 08/28/20 07:57 Budesonide 0.5 Mg/2 Ml Nebu IH 0.5 mg Q12HRT AYAKA Administration Carvedilol 3.125 mg 08/24/20 10:00 08/28/20 09:24 Carvedilol 3.125 Mg Tab PO 3.125 mg BID AYAKA Administration Divalproex Sodium 250 mg 08/24/20 10:00 08/28/20 09:24 Divalproex Er 250 Mg Tab PO 250 mg BID AYAKA Administration Famotidine 20 mg 08/22/20 10:00 08/28/20 09:25 Famotidine 20 Mg Tab PO 20 mg DAILY AYAKA Administration Hydroxyzine Pamoate 25 mg 08/24/20 14:00 08/28/20 09:24 Hydroxyzine Pamoate 25 Mg Cap PO 25 mg TID AYAKA Administration Methylprednisolone Sodium Succinate 40 mg 08/22/20 09:00 08/28/20 05:31 Methylprednisolone Sod Succinate 40 Mg/1 Ml Inj IV 40 mg Q8HR AYAKA Administration Morphine Sulfate 2 mg 08/22/20 08:16 08/26/20 20:37 Morphine 2 Mg/1 Ml Inj IV 2 mg Q4H PRN Administration Pain, Moderate (4-6) Nicotine 14 mg 08/24/20 10:00 08/28/20 09:25 Nicotine 14 Mg/24 Hr Patch TD 14 mg QDAY AYAKA Administration Olanzapine 10 mg 08/24/20 10:00 08/28/20 09:24 Olanzapine 10 Mg Tab PO 10 mg DAILY AYAKA Administration Olanzapine 20 mg 08/24/20 22:00 08/27/20 22:07 Olanzapine 10 Mg Tab PO 20 mg HS AYAKA Administration Ondansetron HCl 4 mg 08/22/20 08:16 Ondansetron 4 Mg/2 Ml Inj IV Q8H PRN Nausea And Vomiting Sodium Chloride 10 ml 08/22/20 10:00 08/28/20 09:27 Sodium Chloride 0.9% 10 Ml Flush Syringe IV 10 ml BID AYAKA Administration Sodium Chloride 10 ml 08/22/20 08:16 Sodium Chloride 0.9% 10 Ml Flush Syringe IV PRN PRN LINE FLUSH
--- NOTE | 2020-08-28 11:56 | Progress Note ---
Assessment and Plan 49 y/o male with known COPD, NABIL, and CHF admitted with acute exacerbation of CHF And COPD with chronic hypercapnic respiratory failure. 08/28/20: Continue to wean FiO2 as tolerated for sats>88%. Spoke with patient after he work up. States he really does not want to wear that machine at night and at home but will think about it. Consider changing to orals as early as tomorrow. Would start at 60mg PRednisone daily. 08/25/20: Repeat ABG now and make adjustments accordingly. hopeful will not have to intubate patient. Continue IV steroids. Daily net negative state. May need to restart lasix therapy if BP will allow. CXR for tomorrow. 1. Bipap therapy for now 2. Repeat ABG 3. Ok with IV steroids 4. Continue daily net negative state 5. patient is noncompliant with outpatient therapy. Subjective Date of service: 08/28/20 Principal diagnosis: LLL pneumonia Interval history: No acute events. Asleep in the room on 6 liters. Good sats. Bipap in room and wore it last night. Objective Vital Signs - 12hr 08/28/20 08/28/20 08/28/20 00:00 02:40 04:00 Temperature Pulse Rate 64 66 66 Pulse Rate [ Anterior Bilateral Throughout] Respiratory 20 Rate Respiratory Rate [Anterior Bilateral Throughout] Blood Pressure O2 Sat by Pulse 96 Oximetry 08/28/20 08/28/20 08/28/20 05:03 07:57 09:24 Temperature 97.1 F L Pulse Rate 66 66 Pulse Rate [ 60 Anterior Bilateral Throughout] Respiratory 16 Rate Respiratory 18 Rate [Anterior Bilateral Throughout] Blood Pressure 127/80 O2 Sat by Pulse 98 98 Oximetry Constitutional: no acute distress, alert Eyes: non-icteric ENT: oropharynx moist Neck: supple, no lymphadenopathy Effort: normal Ascultation: Bilateral: clear, wheezes, rales Percussion: Bilateral: not dull Tactile fremitus: Bilateral: normal Cardiovascular: regular rate and rhythm Gastrointestinal: normoactive bowel sounds, soft, non-tender, non-distended Integumentary: normal Extremities: no cyanosis, no edema, pink and warm Neurologic: normal mental status, non-focal exam, pupils equal and round Psychiatric: mood appropriate, affect normal CBC and BMP: 08/28/20 08:08/28/20 08:05 ABG, PT/INR, D-dimer: ABG ABG pH 7.333 pH Units (7.350-7.450) L 08/27/20 08:40 POC ABG pCO2 87.5 mmHg (32.0-48.0) H 08/25/20 11:22 ABG pCO2 72.2 mm Hg 08/27/20 08:40 POC ABG pO2 64.0 mmHg (83-108) L 08/25/20 11:22 ABG pO2 69.2 mm Hg (80.0-90.0) L 08/27/20 08:40 POC ABG HCO3 49.1 08/25/20 11:22 ABG O2 Saturation 93.7 % (95.0-99.0) L 08/27/20 08:40 PT/INR, D-dimer PT 17.4 Sec. (12.2-14.9) H 08/21/20 15:30 INR 1.37 (0.87-1.13) H 08/21/20 15:30 D-Dimer 251.44 ng/mlDDU (0-234) H 08/21/20 17:52 Abnormal lab findings: Abnormal Labs 08/21/20 08/21/20 08/21/20 15:13 15:30 15:30 RBC Hgb 15.7 H Hct 46.9 H MCV 95 H Plt Count 84 L Lymph % (Auto) 9.0 L Pratt % (Auto) 15.8 H Lymph # (Auto) 1.0 L Pratt # (Auto) 1.7 H Seg Neutrophils % 74.9 H Seg Neuts % (Manual) Lymphocytes % (Manual) Nucleated RBC % Seg Neutrophils # 7.9 H Lymphocytes # (Manual) PT INR D-Dimer ABG pH POC ABG pCO2 57.9 H POC ABG pO2 178.0 H ABG pO2 ABG HCO3 ABG O2 Saturation ABG Base Excess ABG Oxyhemoglobin ABG Sodium 134.2 L ABG Potassium 5.1 H ABG Chloride 96.0 L ABG Glucose Oxyhemoglobin Carboxyhemoglobin 4.3 H Potassium Chloride 92.2 L Carbon Dioxide 34 H BUN 47 H Creatinine 3.2 H Glucose 102 H Calcium 8.3 L Magnesium AST 49 H Lactate Dehydrogenase Total Creatine Kinase CK-MB (CK-2) CK-MB (CK-2) Rel Index Troponin T C-Reactive Protein NT-Pro-B Natriuret Pep Albumin 3.3 L HDL Cholesterol Arterial Blood Glucose Arterial Blood Ionized Calcium 4.0 L 08/21/20 08/21/20 08/21/20 15:30 15:30 17:52 RBC Hgb Hct MCV Plt Count Lymph % (Auto) Pratt % (Auto) Lymph # (Auto) Pratt # (Auto) Seg Neutrophils % Seg Neuts % (Manual) Lymphocytes % (Manual) Nucleated RBC % Seg Neutrophils # Lymphocytes # (Manual) PT 17.4 H INR 1.37 H D-Dimer ABG pH POC ABG pCO2 POC ABG pO2 ABG pO2 ABG HCO3 ABG O2 Saturation ABG Base Excess ABG Oxyhemoglobin ABG Sodium ABG Potassium ABG Chloride ABG Glucose Oxyhemoglobin Carboxyhemoglobin Potassium Chloride Carbon Dioxide BUN Creatinine Glucose Calcium Magnesium AST Lactate Dehydrogenase Total Creatine Kinase CK-MB (CK-2) CK-MB (CK-2) Rel Index Troponin T 0.053 H 0.051 H C-Reactive Protein NT-Pro-B Natriuret Pep 96921 H Albumin HDL Cholesterol 35 L Arterial Blood Glucose Arterial Blood Ionized Calcium 08/21/20 08/21/20 08/21/20 17:52 17:52 20:38 RBC Hgb Hct MCV Plt Count Lymph % (Auto) Pratt % (Auto) Lymph # (Auto) Pratt # (Auto) Seg Neutrophils % Seg Neuts % (Manual) Lymphocytes % (Manual) Nucleated RBC % Seg Neutrophils # Lymphocytes # (Manual) PT INR D-Dimer 251.44 H ABG pH POC ABG pCO2 POC ABG pO2 ABG pO2 ABG HCO3 ABG O2 Saturation ABG Base Excess ABG Oxyhemoglobin ABG Sodium ABG Potassium ABG Chloride ABG Glucose Oxyhemoglobin Carboxyhemoglobin Potassium Chloride Carbon Dioxide BUN Creatinine Glucose Calcium Magnesium AST Lactate Dehydrogenase 303 H Total Creatine Kinase CK-MB (CK-2) CK-MB (CK-2) Rel Index Troponin T 0.045 H C-Reactive Protein 18.90 H NT-Pro-B Natriuret Pep Albumin HDL Cholesterol Arterial Blood Glucose Arterial Blood Ionized Calcium 08/22/20 08/22/20 08/22/20 09:06 15:16 19:49 RBC Hgb Hct MCV Plt Count Lymph % (Auto) Pratt % (Auto) Lymph # (Auto) Pratt # (Auto) Seg Neutrophils % Seg Neuts % (Manual) Lymphocytes % (Manual) Nucleated RBC % Seg Neutrophils # Lymphocytes # (Manual) PT INR D-Dimer ABG pH POC ABG pCO2 POC ABG pO2 ABG pO2 ABG HCO3 ABG O2 Saturation ABG Base Excess ABG Oxyhemoglobin ABG Sodium ABG Potassium ABG Chloride ABG Glucose Oxyhemoglobin Carboxyhemoglobin Potassium Chloride Carbon Dioxide BUN Creatinine Glucose Calcium Magnesium AST Lactate Dehydrogenase Total Creatine Kinase 49 L 51 L CK-MB (CK-2) 4.3 H CK-MB (CK-2) Rel Index 8.7 H 5.4 H 5.8 H Troponin T C-Reactive Protein NT-Pro-B Natriuret Pep Albumin HDL Cholesterol Arterial Blood Glucose Arterial Blood Ionized Calcium 08/23/20 08/23/20 08/24/20 07:19 07:19 09:54 RBC 5.12 H Hgb 16.3 H Hct 49.1 H MCV 96 H Plt Count 113 L Lymph % (Auto) Pratt % (Auto) Lymph # (Auto) Pratt # (Auto) Seg Neutrophils % Seg Neuts % (Manual) 89.0 H Lymphocytes % (Manual) 2.0 L Nucleated RBC % 1.0 H Seg Neutrophils # Lymphocytes # (Manual) 0.1 L PT INR D-Dimer ABG pH 7.319 L POC ABG pCO2 97.9 H POC ABG pO2 53.2 L ABG pO2 ABG HCO3 ABG O2 Saturation ABG Base Excess ABG Oxyhemoglobin 86.8 L ABG Sodium ABG Potassium ABG Chloride 87.0 L ABG Glucose 202 H Oxyhemoglobin Carboxyhemoglobin Potassium Chloride 92.3 L Carbon Dioxide 44 H* D BUN 34 H Creatinine Glucose 279 H Calcium Magnesium AST Lactate Dehydrogenase Total Creatine Kinase CK-MB (CK-2) CK-MB (CK-2) Rel Index Troponin T C-Reactive Protein NT-Pro-B Natriuret Pep Albumin 3.4 L HDL Cholesterol Arterial Blood Glucose 202 H Arterial Blood Ionized Calcium 4.4 L 08/24/20 08/24/20 08/25/20 16:19 19:41 11:22 RBC Hgb Hct MCV Plt Count Lymph % (Auto) Pratt % (Auto) Lymph # (Auto) Pratt # (Auto) Seg Neutrophils % Seg Neuts % (Manual) Lymphocytes % (Manual) Nucleated RBC % Seg Neutrophils # Lymphocytes # (Manual) PT INR D-Dimer ABG pH 7.310 L POC ABG pCO2 101.9 H 103.6 H 87.5 H POC ABG pO2 336.0 H 163.1 H 64.0 L ABG pO2 ABG HCO3 ABG O2 Saturation ABG Base Excess ABG Oxyhemoglobin 99.3 H 98.6 H 91.7 L ABG Sodium 133.7 L 131.9 L 135.7 L ABG Potassium 4.6 H 4.6 H ABG Chloride 89.0 L 90.0 L 89.0 L ABG Glucose 146 H 153 H 137 H Oxyhemoglobin Carboxyhemoglobin Potassium Chloride Carbon Dioxide BUN Creatinine Glucose Calcium Magnesium AST Lactate Dehydrogenase Total Creatine Kinase CK-MB (CK-2) CK-MB (CK-2) Rel Index Troponin T C-Reactive Protein NT-Pro-B Natriuret Pep Albumin HDL Cholesterol Arterial Blood Glucose 146 H 153 H 137 H Arterial Blood Ionized Calcium 4.5 L 08/26/20 08/26/20 08/27/20 04:47 04:47 04:51 RBC Hgb 15.4 H Hct 46.8 H MCV 96 H Plt Count Lymph % (Auto) Pratt % (Auto) Lymph # (Auto) Pratt # (Auto) Seg Neutrophils % Seg Neuts % (Manual) Lymphocytes % (Manual) Nucleated RBC % Seg Neutrophils # Lymphocytes # (Manual) PT INR D-Dimer ABG pH POC ABG pCO2 POC ABG pO2 ABG pO2 ABG HCO3 ABG O2 Saturation ABG Base Excess ABG Oxyhemoglobin ABG Sodium ABG Potassium ABG Chloride ABG Glucose Oxyhemoglobin Carboxyhemoglobin Potassium 5.3 H D 5.1 H Chloride Carbon Dioxide 48 H* 37 H D BUN 29 H 23 H Creatinine 0.7 L Glucose 154 H 121 H Calcium Magnesium 2.40 H AST Lactate Dehydrogenase Total Creatine Kinase CK-MB (CK-2) CK-MB (CK-2) Rel Index Troponin T C-Reactive Protein NT-Pro-B Natriuret Pep Albumin HDL Cholesterol Arterial Blood Glucose Arterial Blood Ionized Calcium 08/27/20 08/28/20 08/28/20 08:40 08:05 08:05 RBC 5.31 H Hgb 16.7 H Hct 50.2 H MCV 95 H Plt Count Lymph % (Auto) [place] % (Auto) Lymph # (Auto) [place] # (Auto) Seg Neutrophils % Seg Neuts % (Manual) Lymphocytes % (Manual) Nucleated RBC % Seg Neutrophils # Lymphocytes # (Manual) PT INR D-Dimer ABG pH 7.333 L POC ABG pCO2 POC ABG pO2 ABG pO2 69.2 L ABG HCO3 37.5 H ABG O2 Saturation 93.7 L ABG Base Excess 8.4 H ABG Oxyhemoglobin ABG Sodium ABG Potassium ABG Chloride ABG Glucose Oxyhemoglobin 91.9 L Carboxyhemoglobin Potassium Chloride Carbon Dioxide 33 H BUN 25 H Creatinine 0.7 L Glucose 138 H Calcium Magnesium AST Lactate Dehydrogenase Total Creatine Kinase CK-MB (CK-2) CK-MB (CK-2) Rel Index Troponin T C-Reactive Protein NT-Pro-B Natriuret Pep Albumin HDL Cholesterol Arterial Blood Glucose Arterial Blood Ionized Calcium
--- NOTE | 2020-08-28 11:59 | Progress Note ---
Assessment and Plan Patient presented with COPD exacerbation and associated oxygen desaturation, due to pulmonary infection. Pulmonary and internal medicine management in progress. No acute cardiac issues, will follow intermittently. Subjective Date of service: 08/28/20 Principal diagnosis: LLL pneumonia Interval history: Patient is comfortable, no acute distress. No new cardiac complaints. Objective Vital Signs Temp Pulse Pulse Pulse Resp Resp BP 08/28/20 09:24 66 08/28/20 07:57 60 18 08/28/20 05:03 97.1 F L 66 16 127/80 08/28/20 04:00 66 08/28/20 02:40 66 20 08/28/20 00:00 64 08/27/20 22:18 64 20 08/27/20 22:16 97.5 F L 64 16 115/61 08/27/20 20:00 64 67 16 18 08/27/20 17:43 08/27/20 16:45 08/27/20 14:48 66 20 08/27/20 13:22 97.9 F 76 18 116/74 08/27/20 12:30 110/63 08/27/20 12:20 80 17 110/63 08/27/20 12:10 67 11 L 110/63 08/27/20 12:00 98.6 F 94 H 68 13 110/63 Pulse Ox 08/28/20 09:24 08/28/20 07:57 98 08/28/20 05:03 98 08/28/20 04:00 08/28/20 02:40 96 08/28/20 00:00 08/27/20 22:18 96 08/27/20 22:16 97 08/27/20 20:00 95 08/27/20 17:43 97 08/27/20 16:45 96 08/27/20 14:48 08/27/20 13:22 95 08/27/20 12:30 94 08/27/20 12:20 94 08/27/20 12:10 96 08/27/20 12:00 96 - Physical Examination General: No Apparent Distress HEENT: Positive: PERRL Neck: Positive: trachea midline Cardiac: Positive: Reg Rate and Rhythm Lungs: Positive: Decreased Breath Sounds Neuro: Positive: Grossly Intact Abdomen: Positive: Soft, Active Bowel Sounds Skin: Positive: Clear Extremities: Absent: edema - Labs and Meds CBC 08/28/20 Range/Units 08:05 WBC 9.6 (4.5-11.0) K/mm3 RBC 5.31 H (3.65-5.03) M/mm3 Hgb 16.7 H (11.8-15.2) gm/dl Hct 50.2 H (35.5-45.6) % Plt Count 162 (140-440) K/mm3 Comprehensive Metabolic Panel 08/28/20 Range/Units 08:05 Sodium 141 (137-145) mmol/L Potassium 5.0 (3.6-5.0) mmol/L Chloride 100.9 (98-107) mmol/L Carbon Dioxide 33 H (22-30) mmol/L BUN 25 H (9-20) mg/dL Creatinine 0.7 L (0.8-1.3) mg/dL Glucose 138 H (75-100) mg/dL Calcium 8.5 (8.4-10.2) mg/dL
--- NOTE | 2020-08-28 14:25 | Cat Scan Report ---
CTA CHEST WITH CONTRAST INDICATION / CLINICAL INFORMATION: Hypoxia. TECHNIQUE: Axial CT images were obtained through the chest after injection of 100 cc Omnipaque 350 IV contrast. 3 plane MIP and/or 3D reconstructions were produced. All CT scans at this location are per formed using CT dose reduction for ALARA by means of automated exposure control. COMPARISON: 12/02/19. FINDINGS: PULMONARY ARTERIES: Good opacification bilaterally without intraluminal filling defect to suggest acu te PTE. THORACIC AORTA: Mild atherosclerotic calcification without acute abnormality. HEART: No significant abnormality. CORONARY ARTERY CALCIFICATION: Minimal. MEDIASTINUM / CURLY: No significant abnormality. PLEURA: No pleural effusion. No pneumothorax. LUNGS: Moderate centrilobular emphysema in the right upper lung. Moderate subsegmental scarring in th e right mid to lower lung. The left lung is clear. ADDITIONAL FINDINGS: None. UPPER ABDOMEN: No acute findings. SKELETAL STRUCTURES: No significant osseous abnormality. IMPRESSION: 1. No CT evidence for pulmonary embolism. 2. Moderate centrilobular emphysema in the right upper lung. Moderate subsegmental scarring in the ri ght mid to lower lung. Signer Name: Nate Glover MD Signed: 08/28/2020 2:21 PM Workstation Name: [id number]
[2020-08-29] MEDS: methylPREDNISolone Sod Succinate 40 MG/1 ML INJ IV SCH ×3 (05:22→21:15)
--- NOTE | 2020-08-29 07:31 | Progress Note ---
Assessment and Plan Assessment and plan: This is a 49-year-old male presents to the emergency department via EMS from [place]. EMS was called by the pull tab dealer who says that his oxygen saturation was down in the 40s initially. EMS found him to have a an oxygen saturation in the 70s on 2 L via nasal cannula. Initially he was placed on 6 L via nasal cannula and went up into the mid 80s. He was then placed on CPAP and went up to about 92%. He has a history of hypertension, CHF, COPD and has been here previously for hypercapnic respiratory failure. The patient is currently a poor historian secondary to his current medical condition. 08/22/2020 On 8 L nasal cannula oxygen Cardiology consult appreciated 08/23/2020 More comfortable On 8 L nasal cannula oxygen Patient to be transferred to [facility] with remote telemetry 08/24 Patient seen and examined this morning Remains -encephalopathic and on 15 liter of Oxygen. Pysch medications and apixaban had not been restarted since admission, unsure of the accuracy of the med rec Reviewed prior hx, patient was admitted in Nov 2019 With shortness of breath, was intubated and diagnosed with PE, COPD exacerbation and discharged on Eliquis and steroids Will obtain ABG on Room air if possible. Will obtain Pulmonary consult CXR is unremarkable, Hold transfer to floor until issues sorted out Restart Eliquis Obtain psych consult patient oriented only to person. 08/25: Pulmonary and psych input noted. Evidence of hypercapnia on ABG noted anticipate some correction with BiPAP. Continue current monitoring. Continue IMCU care as patient is too unstable for transfer to the floors at this time. Is still very agitated and encephalopathic. Again when mental status is improved will be apparent discussion with this patient again about need to be on BiPAP even outpatient ramos. 08/26: wean oxygen as tolerated, will transfer to floor in am if continues to i mprove 08/27: Patient seen and examined, mental status showing some improvement, Will transfer to [facility] WITH Continuous tele due to bed space. Discussed with nursing staff to continue close monitoring. 08/28: Patient continues to show remarkable improvement. I did have extensive discussion with the patient again about why it is important to use his BiPAP due to hypercapnic respiratory failure he verbalized understanding he is to be discharged with BiPAP back to his facility. Brief summary patient is a 49-year-old male with a history of COPD hypercapnia and presumed underlining bipolar disease currently resident of [place]. He has been admitted here in the last 2 months with the same symptom presentation which improved with BiPAP use. Anticipate discharge in 2 to 3 days and will need home O2 eval. Continue aggressive weaning of oxygen 08/29/2020; patient is on 6 L of oxygen and saturating 92%. Patient counseled about wearing of his BiPAP. Patient said he will think about it. Need home O2 evaluation. Patient was on 2 to 3 L of oxygen at home and will be discharged once his oxygen requirement decreased to 4 L of oxygen likely tomorrow. (1) Acute hypoxemic and hypercapnic respiratory failure Current Visit: Yes Status: Acute Plan to address problem: Patient is on liters nasal cannula oxygen BNP is high Covid ruled out Elevated troponin Possible troponin leak CK and CK-MB are negative (2) Acute exacerbation of CHF (congestive heart failure) Current Visit: Yes Status: Acute Qualifiers: Heart failure type: unspecified Qualified Code(s): I50.9 - Heart failure, unspecified Plan to address problem: BNP is very high and 27,000 11/2019 echocardiogram reports normal left ventricular systolic function with ejection fraction 55 to 60%. Per cardiology no volume overload (3) Pneumonia Current Visit: Yes Status: Acute Plan to address problem: Treat as community-acquired pneumonia Patient on 8 L nasal cannula oxygen Initially on BiPAP Improved Smokes 6 cigarettes a day (4) Suspected 2019 novel coronavirus infection Current Visit: Yes Status: Acute Plan to address problem: Covid ruled out (5) Hypertension Current Visit: Yes Status: Chronic Plan to address problem: Continue antihypertensive (6) acute toxic metabolic encephalopathy (7)DVT prophylaxis Current Visit: Yes Status: Acute Plan to address problem: On heparin and GI prophylaxis History Interval history: Patient was seen and evaluated this morning Patient was on 6L of oxygen saturating 92 percent Patient does not have any complaints Hospitalist Physical - Physical exam Narrative exam: Not in cardiopulmonary distress. The patient is obese. Vital signs as documented. Head exam is unremarkable. No scleral icterus . Neck is without jugular venous distension, thyromegaly, or carotid bruits. Lungs are clear to auscultation. Cardiac exam reveals regular rate and Rhythm. Abdominal exam reveals normal bowel sounds, nontender, no organomegaly. Extremities are nonedematous and both femoral and pedal pulses are normal. C.O.D. AUDIT CLERK: Alert and oriented 3. No focal weakness. - Constitutional Vitals: Temp Pulse Resp BP Pulse Ox 98.0 F 48 L 16 128/60 92 08/29/20 04:40 08/29/20 04:40 08/29/20 04:40 08/29/20 04:40 08/29/20 04:40 General appearance: Present: mild distress, well-nourished HEART Score - HEART Score Troponin: Troponin T 0.045 ng/mL (0.00-0.029) H 08/21/20 20:38 Results - Labs CBC & Chem 7: 08/28/20 08:05 08/28/20 08:05 Labs: Laboratory Last Values WBC 9.6 K/mm3 (4.5-11.0) 08/28/20 08:05 RBC 5.31 M/mm3 (3.65-5.03) H 08/28/20 08:05 Hgb 16.7 gm/dl (11.8-15.2) H 08/28/20 08:05 Hct 50.2 % (35.5-45.6) H 08/28/20 08:05 MCV 95 fl (84-94) H 08/28/20 08:05 MCH 31 pg (28-32) 08/28/20 08:05 MCHC 33 % (32-34) 08/28/20 08:05 RDW 14.1 % (13.2-15.2) 08/28/20 08:05 Plt Count 162 K/mm3 (140-440) 08/28/20 08:05 Lymph % (Auto) 9.0 % (13.4-35.0) L 08/21/20 15:30 [place] % (Auto) 15.8 % (0.0-7.3) H 08/21/20 15:30 Eos % (Auto) 0.0 % (0.0-4.3) 08/21/20 15:30 Baso % (Auto) 0.3 % (0.0-1.8) 08/21/20 15:30 Lymph # (Auto) 1.0 K/mm3 (1.2-5.4) L 08/21/20 15:30 [place] # (Auto) 1.7 K/mm3 (0.0-0.8) H 08/21/20 15:30 Eos # (Auto) 0.0 K/mm3 (0.0-0.4) 08/21/20 15:30 Baso # (Auto) 0.0 K/mm3 (0.0-0.1) 08/21/20 15:30 Add Manual Diff Complete 08/23/20 07:19 Total Counted 100 08/23/20 07:19 Seg Neutrophils % [employer] 08/23/20 07:19 Seg Neuts % (Manual) 89.0 % (40.0-70.0) H 08/23/20 07:19 Band Neutrophils % 7.0 % 08/23/20 07:19 Lymphocytes % (Manual) 2.0 % (13.4-35.0) L 08/23/20 07:19 Monocytes % (Manual) 2.0 % (0.0-7.3) 08/23/20 07:19 Nucleated RBC % 1.0 % (0.0-0.9) H 08/23/20 07:19 Seg Neutrophils # 7.9 K/mm3 (1.8-7.7) H 08/21/20 15:30 Seg Neutrophils # Man 6.1 K/mm3 (1.8-7.7) 08/23/20 07:19 Band Neutrophils # 0.5 K/mm3 08/23/20 07:19 Lymphocytes # (Manual) 0.1 K/mm3 (1.2-5.4) L 08/23/20 07:19 Abs React Lymphs (Man) 0.0 K/mm3 08/23/20 07:19 Monocytes # (Manual) 0.1 K/mm3 (0.0-0.8) 08/23/20 07:19 Eosinophils # (Manual) 0.0 K/mm3 (0.0-0.4) 08/23/20 07:19 Basophils # (Manual) 0.0 K/mm3 (0.0-0.1) 08/23/20 07:19 Metamyelocytes # 0.0 K/mm3 08/23/20 07:19 Myelocytes # 0.0 K/mm3 08/23/20 07:19 Promyelocytes # 0.0 K/mm3 08/23/20 07:19 Blast Cells # 0.0 K/mm3 08/23/20 07:19 WBC Morphology Not Reportable 08/23/20 07:19 Hypersegmented Neuts Not Reportable 08/23/20 07:19 Hyposegmented Neuts Not Reportable 08/23/20 07:19 Hypogranular Neuts Not Reportable 08/23/20 07:19 Smudge Cells Not Reportable 08/23/20 07:19 Toxic Granulation Not Reportable 08/23/20 07:19 Toxic Vacuolation Not Reportable 08/23/20 07:19 Dohle Bodies Not Reportable 08/23/20 07:19 Pelger-Huet Anomaly Not Reportable 08/23/20 07:19 Malena Rods Not Reportable 08/23/20 07:19 Platelet Estimate Consistent w auto 08/23/20 07:19 Clumped Platelets Not Reportable 08/23/20 07:19 Plt Clumps, EDTA Not Reportable 08/23/20 07:19 Large Platelets Not Reportable 08/23/20 07:19 Giant Platelets Not Reportable 08/23/20 07:19 Platelet Satelliting Not Reportable 08/23/20 07:19 Plt Morphology Comment Not Reportable 08/23/20 07:19 RBC Morphology Not Reportable 08/23/20 07:19 Dimorphic RBCs Not Reportable 08/23/20 07:19 Polychromasia Not Reportable 08/23/20 07:19 Hypochromasia Not Reportable 08/23/20 07:19 Poikilocytosis Not Reportable 08/23/20 07:19 Anisocytosis Not Reportable 08/23/20 07:19 Microcytosis Not Reportable 08/23/20 07:19 Macrocytosis Not Reportable 08/23/20 07:19 Spherocytes Not Reportable 08/23/20 07:19 Pappenheimer Bodies Not Reportable 08/23/20 07:19 Sickle Cells Not Reportable 08/23/20 07:19 Target Cells Not Reportable 08/23/20 07:19 Tear Drop Cells Not Reportable 08/23/20 07:19 Ovalocytes Not Reportable 08/23/20 07:19 Stomatocytes 2+ 08/23/20 07:19 Helmet Cells Not Reportable 08/23/20 07:19 Herrera-Lawrence Bodies Not Reportable 08/23/20 07:19 [place] Rings Not Reportable 08/23/20 07:19 Dain Cells Not Reportable 08/23/20 07:19 Bite Cells Not Reportable 08/23/20 07:19 Crenated Cell Not Reportable 08/23/20 07:19 Elliptocytes Not Reportable 08/23/20 07:19 Acanthocytes (Spur) Not Reportable 08/23/20 07:19 Rouleaux Not Reportable 08/23/20 07:19 Hemoglobin C Crystals Not Reportable 08/23/20 07:19 Schistocytes Not Reportable 08/23/20 07:19 Malaria parasites Not Reportable 08/23/20 07:19 Rock Bodies Not Reportable 08/23/20 07:19 Hem Pathologist Commnt No 08/23/20 07:19 PT 17.4 Sec. (12.2-14.9) H 08/21/20 15:30 INR 1.37 (0.87-1.13) H 08/21/20 15:30 APTT 31.3 Sec. (24.2-36.6) 08/21/20 15:30 D-Dimer 251.44 ng/mlDDU (0-234) H 08/21/20 17:52 ABG pH 7.333 pH Units (7.350-7.450) L 08/27/20 08:40 POC ABG pCO2 87.5 mmHg (32.0-48.0) H 08/25/20 11:22 ABG pCO2 72.2 mm Hg 08/27/20 08:40 POC ABG pO2 64.0 mmHg (83-108) L 08/25/20 11:22 ABG pO2 69.2 mm Hg (80.0-90.0) L 08/27/20 08:40 POC ABG HCO3 49.1 08/25/20 11:22 ABG HCO3 37.5 mmol/L (20.0-26.0) H 08/27/20 08:40 ABG O2 Saturation 93.7 % (95.0-99.0) L 08/27/20 08:40 ABG O2 Content 19.7 (0.0-44) 08/27/20 08:40 POC ABG Base Excess 18.0 08/25/20 11:22 ABG Base Excess 8.4 mmol/L (-2.0-3.0) H 08/27/20 08:40 ABG Hemoglobin 15.3 gm/dl (14.0-18.0) 08/27/20 08:40 ABG Oxyhemoglobin 91.7 (94-98) L 08/25/20 11:22 ABG Carboxyhemoglobin 1.5 % (0.0-5.0) 08/27/20 08:40 ABG Methemoglobin 0.5 % (0.0-1.5) 08/27/20 08:40 ABG Sodium 135.7 mmol/L (136.0-145.0) L 08/25/20 11:22 ABG Potassium 4.6 mmol/L (3.40-4.50) H 08/25/20 11:22 ABG Chloride 89.0 mmol/L (98-107) L 08/25/20 11:22 ABG Glucose 137 mg/dL (65-95) H 08/25/20 11:22 Oxyhemoglobin 91.9 % (95.0-99.0) L 08/27/20 08:40 Carboxyhemoglobin 0.7 (0.5-1.5) 08/25/20 11:22 FiO2 68 % 08/27/20 08:40 FiO2 % 85.0 08/25/20 11:22 Sodium 141 mmol/L (137-145) 08/28/20 08:05 Potassium 5.0 mmol/L (3.6-5.0) 08/28/20 08:05 Chloride 100.9 mmol/L (98-107) 08/28/20 08:05 Carbon Dioxide 33 mmol/L (22-30) H 08/28/20 08:05 Anion Gap 12 mmol/L 08/28/20 08:05 BUN 25 mg/dL (9-20) H 08/28/20 08:05 Creatinine 0.7 mg/dL (0.8-1.3) L 08/28/20 08:05 Estimated GFR > 60 ml/min 08/28/20 08:05 BUN/Creatinine Ratio 36 % 08/28/20 08:05 Glucose 138 mg/dL (75-100) H 08/28/20 08:05 POC Glucose 83 mg/dL (70-105) 08/22/20 07:49 Hemoglobin A1c 5.5 % (4-6) 08/22/20 09:06 Lactic Acid 1.30 mmol/L (0.7-2.0) 08/21/20 15:30 Calcium 8.5 mg/dL (8.4-10.2) 08/28/20 08:05 Phosphorus 3.60 mg/dL (2.5-4.5) 08/26/20 04:47 Magnesium 2.40 mg/dL (1.7-2.3) H 08/26/20 04:47 Total Bilirubin 0.30 mg/dL (0.1-1.2) 08/23/20 07:19 AST 27 units/L (5-40) 08/23/20 07:19 ALT 26 units/L (7-56) 08/23/20 07:19 Alkaline Phosphatase 74 units/L (35-129) 08/23/20 07:19 Lactate Dehydrogenase 303 units/L (91-180) H 08/21/20 17:52 Total Creatine Kinase 51 units/L (55-170) L 08/22/20 19:49 CK-MB (CK-2) 3.0 ng/mL (0.0-4.0) 08/22/20 19:49 CK-MB (CK-2) Rel Index 5.8 (0-4) H 08/22/20 19:49 Troponin T 0.045 ng/mL (0.00-0.029) H 08/21/20 20:38 C-Reactive Protein 18.90 mg/dL (0.00-1.30) H 08/21/20 17:52 NT-Pro-B Natriuret Pep 35235 pg/mL (0-450) H 08/21/20 15:30 Total Protein 6.6 g/dL (6.3-8.2) 08/23/20 07:19 Albumin 3.4 g/dL (3.9-5) L 08/23/20 07:19 Albumin/Globulin Ratio 1.1 % 08/23/20 07:19 Triglycerides 123 mg/dL (2-149) 08/21/20 15:30 Cholesterol 137 mg/dL (50-199) 08/21/20 15:30 LDL Cholesterol Direct 76 mg/dL (50-130) 08/21/20 15:30 HDL Cholesterol 35 mg/dL (40-59) L 08/21/20 15:30 Cholesterol/HDL Ratio 3.91 % 08/21/20 15:30 Procalcitonin 0.43 ng/mL (<0.15) 08/21/20 17:52 Arterial Blood Glucose 137 mg/dL (65-95) H 08/25/20 11:22 Arterial Blood Ionized Calcium 4.6 mg/dL (4.6-5.3) 08/25/20 11:22 Coronavirus (PCR) Negative (Negative) 08/22/20 Unknown Cohen/IV: Voiding Method Urinal Active Medications - Current Medications Current Medications: Generic Name Dose Route Start Last Admin Trade Name Freq PRN Reason Stop Dose Admin Acetaminophen 650 mg 08/22/20 08:16 08/24/20 03:54 Acetaminophen 325 Mg Tab PO 650 mg Q4H PRN Administration Pain MILD(1-3)/Fever >100.5/DIXON Albuterol 1 mg 08/27/20 16:48 Albuterol 2.5 Mg/3 Ml Nebu IH Q4H PRN Wheezing Albuterol/Ipratropium 1 ampul 08/28/20 08:00 08/28/20 19:27 Ipratropium/Albuterol Sulfate 3 Ml Ampul.Neb IH 1 ampul TIDRT AYAKA Administration Apixaban 5 mg 08/24/20 10:00 08/28/20 22:20 Apixaban 5 Mg Tab PO 5 mg Q12HR AYAKA Administration Arformoterol Tartrate 15 mcg 08/27/20 20:00 08/28/20 19:27 Arformoterol 15 Mcg/2 Ml Nebu IH 15 mcg Q12HRT AYAKA Administration Budesonide 0.5 mg 08/27/20 20:00 08/28/20 19:27 Budesonide 0.5 Mg/2 Ml Nebu IH 0.5 mg Q12HRT AYAKA Administration Carvedilol 3.125 mg 08/24/20 10:00 08/28/20 22:20 Carvedilol 3.125 Mg Tab PO 3.125 mg BID AYAKA Administration Divalproex Sodium 250 mg 08/24/20 10:00 08/28/20 22:20 Divalproex Er 250 Mg Tab PO 250 mg BID AYAKA Administration Famotidine 20 mg 08/22/20 10:00 08/28/20 09:25 Famotidine 20 Mg Tab PO 20 mg DAILY AYAKA Administration Hydroxyzine Pamoate 25 mg 08/24/20 14:00 08/28/20 22:20 Hydroxyzine Pamoate 25 Mg Cap PO 25 mg TID AYAKA Administration Methylprednisolone Sodium Succinate 40 mg 08/22/20 09:00 08/29/20 05:22 Methylprednisolone Sod Succinate 40 Mg/1 Ml Inj IV 40 mg Q8HR AYAKA Administration Morphine Sulfate 2 mg 08/22/20 08:16 08/26/20 20:37 Morphine 2 Mg/1 Ml Inj IV 2 mg Q4H PRN Administration Pain, Moderate (4-6) Nicotine 14 mg 08/24/20 10:00 08/28/20 09:25 Nicotine 14 Mg/24 Hr Patch TD 14 mg QDAY AYAKA Administration Olanzapine 10 mg 08/24/20 10:00 08/28/20 09:24 Olanzapine 10 Mg Tab PO 10 mg DAILY AYAKA Administration Olanzapine 20 mg 08/24/20 22:00 08/28/20 22:19 Olanzapine 10 Mg Tab PO 20 mg HS AYAKA Administration Ondansetron HCl 4 mg 08/22/20 08:16 Ondansetron 4 Mg/2 Ml Inj IV Q8H PRN Nausea And Vomiting Sodium Chloride 10 ml 08/22/20 10:00 08/28/20 22:21 Sodium Chloride 0.9% 10 Ml Flush Syringe IV 10 ml BID AYAKA Administration Sodium Chloride 10 ml 08/22/20 08:16 Sodium Chloride 0.9% 10 Ml Flush Syringe IV PRN PRN LINE FLUSH Nutrition/Malnutrition Assess - Dietary Evaluation Nutrition/Malnutrition Findings: Nutrition Notes Start: 08/28/20 13:49 Freq: Status: Active Protocol: Document 08/28/20 13:49 MANI (Rec: 08/28/20 13:49 [email or web address]) Nutrition Notes Need for Assessment generated from: LOS Initial or Follow up Brief Note Subjective/Other Information Screen for LOS. Pt eating 90% of meals. Nutrition Intervention Revisit per MD consult or patient Sign Off request:
[2020-08-29] MEDS ORDERED: FUROSEMIDE 40 MG/4 ML INJ IV NR (09:00)
[2020-08-29] MEDS: BUDESONIDE 0.5 MG/2 ML NEBU IH SCH ×2 (09:04→19:55)
[2020-08-29] MEDS: ARFORMOTEROL 15 MCG/2 ML NEBU IH SCH ×2 (09:04→19:55)
[2020-08-29] MEDS: IPRATROPIUM/ALBUTEROL SULFATE 3 ML AMPUL.NEB IH SCH ×3 (09:04→19:55)
[2020-08-29] MEDS: FAMOTIDINE 20 MG TAB PO SCH (11:13)
[2020-08-29] MEDS: NICOTINE 14 MG/24 HR PATCH TD SCH (11:13)
[2020-08-29] MEDS: hydrOXYzine PAMOATE 25 MG CAP PO SCH ×3 (11:13→21:14)
[2020-08-29] MEDS: APIXABAN 5 MG TAB PO SCH ×2 (11:13→21:15)
[2020-08-29] MEDS: DIVALPROEX ER 250 MG TAB PO SCH ×2 (11:14→21:15)
[2020-08-29] MEDS: carvediloL 3.125 MG TAB PO SCH ×2 (11:14→21:14)
--- NOTE | 2020-08-29 11:35 | Progress Note ---
Assessment and Plan 49 y/o male with known COPD, NABIL, and CHF admitted with acute exacerbation of CHF And COPD with chronic hypercapnic respiratory failure. 08/29/20: Continue to wean FiO2 as tolerated for sats >88%. Change to oral steroids. Discharge planning. 08/28/20: Continue to wean FiO2 as tolerated for sats>88%. Spoke with patient after he woke up. States he really does not want to wear that machine at night and at home but will think about it. Consider changing to orals as early as tomorrow. Would start at 60mg PRednisone daily. 08/25/20: Repeat ABG now and make adjustments accordingly. hopeful will not have to intubate patient. Continue IV steroids. Daily net negative state. May need to restart lasix therapy if BP will allow. CXR for tomorrow. 1. Bipap therapy for now 2. Repeat ABG 3. Ok with IV steroids 4. Continue daily net negative state 5. patient is noncompliant with outpatient therapy. Subjective Date of service: 08/29/20 Principal diagnosis: LLL pneumonia Interval history: No acute events. Stable on nasal cannula. Objective Vital Signs - 12hr 08/29/20 08/29/20 08/29/20 00:00 04:00 04:40 Temperature 98.0 F Pulse Rate 73 73 48 L Pulse Rate [ Posterior Bilateral Throughout] Respiratory 16 Rate Respiratory Rate [Posterior Bilateral Throughout] Blood Pressure 128/60 O2 Sat by Pulse 92 Oximetry 08/29/20 08:00 Temperature Pulse Rate Pulse Rate [ 78 Posterior Bilateral Throughout] Respiratory Rate Respiratory 18 Rate [Posterior Bilateral Throughout] Blood Pressure O2 Sat by Pulse 91 Oximetry Constitutional: no acute distress, alert Eyes: non-icteric ENT: oropharynx moist Neck: supple, no lymphadenopathy Effort: normal Ascultation: Bilateral: clear, wheezes, rales Percussion: Bilateral: not dull Tactile fremitus: Bilateral: normal Cardiovascular: regular rate and rhythm Gastrointestinal: normoactive bowel sounds, soft, non-tender, non-distended Integumentary: normal Extremities: no cyanosis, no edema, pink and warm Neurologic: normal mental status, non-focal exam, pupils equal and round Psychiatric: mood appropriate, affect normal CBC and BMP: 08/28/20 08:05 08/28/20 08:05 ABG, PT/INR, D-dimer: ABG ABG pH 7.333 pH Units (7.350-7.450) L 08/27/20 08:40 POC ABG pCO2 87.5 mmHg (32.0-48.0) H 08/25/20 11:22 ABG pCO2 72.2 mm Hg 08/27/20 08:40 POC ABG pO2 64.0 mmHg (83-108) L 08/25/20 11:22 ABG pO2 69.2 mm Hg (80.0-90.0) L 08/27/20 08:40 POC ABG HCO3 49.1 08/25/20 11:22 ABG O2 Saturation 93.7 % (95.0-99.0) L 08/27/20 08:40 PT/INR, D-dimer PT 17.4 Sec. (12.2-14.9) H 08/21/20 15:30 INR 1.37 (0.87-1.13) H 08/21/20 15:30 D-Dimer 251.44 ng/mlDDU (0-234) H 08/21/20 17:52 Abnormal lab findings: Abnormal Labs 08/21/20 08/21/20 08/21/20 15:13 15:30 15:30 RBC Hgb 15.7 H Hct 46.9 H MCV 95 H Plt Count 84 L Lymph % (Auto) 9.0 L [place] % (Auto) 15.8 H Lymph # (Auto) 1.0 L [place] # (Auto) 1.7 H Seg Neutrophils % 74.9 H Seg Neuts % (Manual) Lymphocytes % (Manual) Nucleated RBC % Seg Neutrophils # 7.9 H Lymphocytes # (Manual) PT INR D-Dimer ABG pH POC ABG pCO2 57.9 H POC ABG pO2 178.0 H ABG pO2 ABG HCO3 ABG O2 Saturation ABG Base Excess ABG Oxyhemoglobin ABG Sodium 134.2 L ABG Potassium 5.1 H ABG Chloride 96.0 L ABG Glucose Oxyhemoglobin Carboxyhemoglobin 4.3 H Potassium Chloride 92.2 L Carbon Dioxide 34 H BUN 47 H Creatinine 3.2 H Glucose 102 H Calcium 8.3 L Magnesium AST 49 H Lactate Dehydrogenase Total Creatine Kinase CK-MB (CK-2) CK-MB (CK-2) Rel Index Troponin T C-Reactive Protein NT-Pro-B Natriuret Pep Albumin 3.3 L HDL Cholesterol Arterial Blood Glucose Arterial Blood Ionized Calcium 4.0 L 08/21/20 08/21/20 08/21/20 15:30 15:30 17:52 RBC Hgb Hct MCV Plt Count Lymph % (Auto) [place] % (Auto) Lymph # (Auto) [place] # (Auto) Seg Neutrophils % Seg Neuts % (Manual) Lymphocytes % (Manual) Nucleated RBC % Seg Neutrophils # Lymphocytes # (Manual) PT 17.4 H INR 1.37 H D-Dimer ABG pH POC ABG pCO2 POC ABG pO2 ABG pO2 ABG HCO3 ABG O2 Saturation ABG Base Excess ABG Oxyhemoglobin ABG Sodium ABG Potassium ABG Chloride ABG Glucose Oxyhemoglobin Carboxyhemoglobin Potassium Chloride Carbon Dioxide BUN Creatinine Glucose Calcium Magnesium AST Lactate Dehydrogenase Total Creatine Kinase CK-MB (CK-2) CK-MB (CK-2) Rel Index Troponin T 0.053 H 0.051 H C-Reactive Protein NT-Pro-B Natriuret Pep 07529 H Albumin HDL Cholesterol 35 L Arterial Blood Glucose Arterial Blood Ionized Calcium 08/21/20 08/21/20 08/21/20 17:52 17:52 20:38 RBC Hgb Hct MCV Plt Count Lymph % (Auto) [place] % (Auto) Lymph # (Auto) [place] # (Auto) Seg Neutrophils % Seg Neuts % (Manual) Lymphocytes % (Manual) Nucleated RBC % Seg Neutrophils # Lymphocytes # (Manual) PT INR D-Dimer 251.44 H ABG pH POC ABG pCO2 POC ABG pO2 ABG pO2 ABG HCO3 ABG O2 Saturation ABG Base Excess ABG Oxyhemoglobin ABG Sodium ABG Potassium ABG Chloride ABG Glucose Oxyhemoglobin Carboxyhemoglobin Potassium Chloride Carbon Dioxide BUN Creatinine Glucose Calcium Magnesium AST Lactate Dehydrogenase 303 H Total Creatine Kinase CK-MB (CK-2) CK-MB (CK-2) Rel Index Troponin T 0.045 H C-Reactive Protein 18.90 H NT-Pro-B Natriuret Pep Albumin HDL Cholesterol Arterial Blood Glucose Arterial Blood Ionized Calcium 08/22/20 08/22/20 08/22/20 09:06 15:16 19:49 RBC Hgb Hct MCV Plt Count Lymph % (Auto) [place] % (Auto) Lymph # (Auto) [place] # (Auto) Seg Neutrophils % Seg Neuts % (Manual) Lymphocytes % (Manual) Nucleated RBC % Seg Neutrophils # Lymphocytes # (Manual) PT INR D-Dimer ABG pH POC ABG pCO2 POC ABG pO2 ABG pO2 ABG HCO3 ABG O2 Saturation ABG Base Excess ABG Oxyhemoglobin ABG Sodium ABG Potassium ABG Chloride ABG Glucose Oxyhemoglobin Carboxyhemoglobin Potassium Chloride Carbon Dioxide BUN Creatinine Glucose Calcium Magnesium AST Lactate Dehydrogenase Total Creatine Kinase 49 L 51 L CK-MB (CK-2) 4.3 H CK-MB (CK-2) Rel Index 8.7 H 5.4 H 5.8 H Troponin T C-Reactive Protein NT-Pro-B Natriuret Pep Albumin HDL Cholesterol Arterial Blood Glucose Arterial Blood Ionized Calcium 08/23/20 08/23/20 08/24/20 07:19 07:19 09:54 RBC 5.12 H Hgb 16.3 H Hct 49.1 H MCV 96 H Plt Count 113 L Lymph % (Auto) [place] % (Auto) Lymph # (Auto) [place] # (Auto) Seg Neutrophils % Seg Neuts % (Manual) 89.0 H Lymphocytes % (Manual) 2.0 L Nucleated RBC % 1.0 H Seg Neutrophils # Lymphocytes # (Manual) 0.1 L PT INR D-Dimer ABG pH 7.319 L POC ABG pCO2 97.9 H POC ABG pO2 53.2 L ABG pO2 ABG HCO3 ABG O2 Saturation ABG Base Excess ABG Oxyhemoglobin 86.8 L ABG Sodium ABG Potassium ABG Chloride 87.0 L ABG Glucose 202 H Oxyhemoglobin Carboxyhemoglobin Potassium Chloride 92.3 L Carbon Dioxide 44 H* D BUN 34 H Creatinine Glucose 279 H Calcium Magnesium AST Lactate Dehydrogenase Total Creatine Kinase CK-MB (CK-2) CK-MB (CK-2) Rel Index Troponin T C-Reactive Protein NT-Pro-B Natriuret Pep Albumin 3.4 L HDL Cholesterol Arterial Blood Glucose 202 H Arterial Blood Ionized Calcium 4.4 L 08/24/20 08/24/20 08/25/20 16:19 19:41 11:22 RBC Hgb Hct MCV Plt Count Lymph % (Auto) [place] % (Auto) Lymph # (Auto) [place] # (Auto) Seg Neutrophils % Seg Neuts % (Manual) Lymphocytes % (Manual) Nucleated RBC % Seg Neutrophils # Lymphocytes # (Manual) PT INR D-Dimer ABG pH 7.310 L POC ABG pCO2 101.9 H 103.6 H 87.5 H POC ABG pO2 336.0 H 163.1 H 64.0 L ABG pO2 ABG HCO3 ABG O2 Saturation ABG Base Excess ABG Oxyhemoglobin 99.3 H 98.6 H 91.7 L ABG Sodium 133.7 L 131.9 L 135.7 L ABG Potassium 4.6 H 4.6 H ABG Chloride 89.0 L 90.0 L 89.0 L ABG Glucose 146 H 153 H 137 H Oxyhemoglobin Carboxyhemoglobin Potassium Chloride Carbon Dioxide BUN Creatinine Glucose Calcium Magnesium AST Lactate Dehydrogenase Total Creatine Kinase CK-MB (CK-2) CK-MB (CK-2) Rel Index Troponin T C-Reactive Protein NT-Pro-B Natriuret Pep Albumin HDL Cholesterol Arterial Blood Glucose 146 H 153 H 137 H Arterial Blood Ionized Calcium 4.5 L 08/26/20 08/26/20 08/27/20 04:47 04:47 04:51 RBC Hgb 15.4 H Hct 46.8 H MCV 96 H Plt Count Lymph % (Auto) [place] % (Auto) Lymph # (Auto) [place] # (Auto) Seg Neutrophils % Seg Neuts % (Manual) Lymphocytes % (Manual) Nucleated RBC % Seg Neutrophils # Lymphocytes # (Manual) PT INR D-Dimer ABG pH POC ABG pCO2 POC ABG pO2 ABG pO2 ABG HCO3 ABG O2 Saturation ABG Base Excess ABG Oxyhemoglobin ABG Sodium ABG Potassium ABG Chloride ABG Glucose Oxyhemoglobin Carboxyhemoglobin Potassium 5.3 H D 5.1 H Chloride Carbon Dioxide 48 H* 37 H D BUN 29 H 23 H Creatinine 0.7 L Glucose 154 H 121 H Calcium Magnesium 2.40 H AST Lactate Dehydrogenase Total Creatine Kinase CK-MB (CK-2) CK-MB (CK-2) Rel Index Troponin T C-Reactive Protein NT-Pro-B Natriuret Pep Albumin HDL Cholesterol Arterial Blood Glucose Arterial Blood Ionized Calcium 08/27/20 08/28/20 08/28/20 08:40 08:05 08:05 RBC 5.31 H Hgb 16.7 H Hct 50.2 H MCV 95 H Plt Count Lymph % (Auto) [place] % (Auto) Lymph # (Auto) [place] # (Auto) Seg Neutrophils % Seg Neuts % (Manual) Lymphocytes % (Manual) Nucleated RBC % Seg Neutrophils # Lymphocytes # (Manual) PT INR D-Dimer ABG pH 7.333 L POC ABG pCO2 POC ABG pO2 ABG pO2 69.2 L ABG HCO3 37.5 H ABG O2 Saturation 93.7 L ABG Base Excess 8.4 H ABG Oxyhemoglobin ABG Sodium ABG Potassium ABG Chloride ABG Glucose Oxyhemoglobin 91.9 L Carboxyhemoglobin Potassium Chloride Carbon Dioxide 33 H BUN 25 H Creatinine 0.7 L Glucose 138 H Calcium Magnesium AST Lactate Dehydrogenase Total Creatine Kinase CK-MB (CK-2) CK-MB (CK-2) Rel Index Troponin T C-Reactive Protein NT-Pro-B Natriuret Pep Albumin HDL Cholesterol Arterial Blood Glucose Arterial Blood Ionized Calcium
[2020-08-29] MEDS: MORPHINE 2 MG/1 ML INJ IV PRN (19:23)
[2020-08-30] MEDS: methylPREDNISolone Sod Succinate 40 MG/1 ML INJ IV SCH (05:24)
[2020-08-30] MEDS: IPRATROPIUM/ALBUTEROL SULFATE 3 ML AMPUL.NEB IH SCH ×3 (08:50→21:08)
[2020-08-30] MEDS: BUDESONIDE 0.5 MG/2 ML NEBU IH SCH ×2 (08:50→21:08)
[2020-08-30] MEDS: ARFORMOTEROL 15 MCG/2 ML NEBU IH SCH ×2 (08:50→21:08)
[2020-08-30] MEDS: hydrOXYzine PAMOATE 25 MG CAP PO SCH ×3 (08:57→19:41)
[2020-08-30] MEDS: FAMOTIDINE 20 MG TAB PO SCH (09:00)
[2020-08-30] MEDS: NICOTINE 14 MG/24 HR PATCH TD SCH (09:00)
[2020-08-30] MEDS: carvediloL 3.125 MG TAB PO SCH ×2 (09:00→21:54)
[2020-08-30] MEDS: APIXABAN 5 MG TAB PO SCH ×2 (09:00→21:52)
[2020-08-30] MEDS: DIVALPROEX ER 250 MG TAB PO SCH ×2 (09:01→21:53)
[2020-08-30] MEDS ORDERED: FUROSEMIDE 40 MG/4 ML INJ IV NR (12:04)
--- NOTE | 2020-08-30 12:04 | Progress Note ---
Assessment and Plan 49 y/o male with known COPD, NABIL, and CHF admitted with acute exacerbation of CHF And COPD with chronic hypercapnic respiratory failure. 08/30/20: Lasix again today. Suggest checking labs tomorrow morning. Will change to prednisone 60 daily starting tomorrow. Hopeful discharge soon. CM to look into PPV at home if patient will wear it. 08/29/20: Continue to wean FiO2 as tolerated for sats >88%. Change to oral steroids. Discharge planning. 08/28/20: Continue to wean FiO2 as tolerated for sats>88%. Spoke with patient after he woke up. States he really does not want to wear that machine at night and at home but will think about it. Consider changing to orals as early as tomorrow. Would start at 60mg PRednisone daily. 08/25/20: Repeat ABG now and make adjustments accordingly. hopeful will not have to intubate patient. Continue IV steroids. Daily net negative state. May need to restart lasix therapy if BP will allow. CXR for tomorrow. 1. Bipap therapy for now 2. Repeat ABG 3. Ok with IV steroids 4. Continue daily net negative state 5. patient is noncompliant with outpatient therapy. Subjective Date of service: 08/30/20 Principal diagnosis: LLL pneumonia Interval history: Down to 5 liters now with decent sats. Wore bipap last night. Net negative fluid balance today. Objective Vital Signs - 12hr 08/30/20 08/30/20 08/30/20 03:35 04:04 09:28 Temperature 97.4 F L Pulse Rate 69 Respiratory 22 20 Rate Blood Pressure 134/81 O2 Sat by Pulse 97 93 Oximetry Constitutional: no acute distress, alert Eyes: non-icteric ENT: oropharynx moist Neck: supple, no lymphadenopathy Effort: normal Ascultation: Bilateral: clear, wheezes, rales Percussion: Bilateral: not dull Tactile fremitus: Bilateral: normal Cardiovascular: regular rate and rhythm Gastrointestinal: normoactive bowel sounds, soft, non-tender, non-distended Integumentary: normal Extremities: no cyanosis, no edema, pink and warm Neurologic: normal mental status, non-focal exam, pupils equal and round Psychiatric: mood appropriate, affect normal CBC and BMP: 08/28/20 08:05 08/28/20 08:05 ABG, PT/INR, D-dimer: ABG ABG pH 7.333 pH Units (7.350-7.450) L 08/27/20 08:40 POC ABG pCO2 87.5 mmHg (32.0-48.0) H 08/25/20 11:22 ABG pCO2 72.2 mm Hg 08/27/20 08:40 POC ABG pO2 64.0 mmHg (83-108) L 08/25/20 11:22 ABG pO2 69.2 mm Hg (80.0-90.0) L 08/27/20 08:40 POC ABG HCO3 49.1 08/25/20 11:22 ABG O2 Saturation 93.7 % (95.0-99.0) L 08/27/20 08:40 PT/INR, D-dimer PT 17.4 Sec. (12.2-14.9) H 08/21/20 15:30 INR 1.37 (0.87-1.13) H 08/21/20 15:30 D-Dimer 251.44 ng/mlDDU (0-234) H 08/21/20 17:52 Abnormal lab findings: Abnormal Labs 08/21/20 08/21/20 08/21/20 15:13 15:30 15:30 RBC Hgb 15.7 H Hct 46.9 H MCV 95 H Plt Count 84 L Lymph % (Auto) 9.0 L [place] % (Auto) 15.8 H Lymph # (Auto) 1.0 L [place] # (Auto) 1.7 H Seg Neutrophils % 74.9 H Seg Neuts % (Manual) Lymphocytes % (Manual) Nucleated RBC % Seg Neutrophils # 7.9 H Lymphocytes # (Manual) PT INR D-Dimer ABG pH POC ABG pCO2 57.9 H POC ABG pO2 178.0 H ABG pO2 ABG HCO3 ABG O2 Saturation ABG Base Excess ABG Oxyhemoglobin ABG Sodium 134.2 L ABG Potassium 5.1 H ABG Chloride 96.0 L ABG Glucose Oxyhemoglobin Carboxyhemoglobin 4.3 H Potassium Chloride 92.2 L Carbon Dioxide 34 H BUN 47 H Creatinine 3.2 H Glucose 102 H Calcium 8.3 L Magnesium AST 49 H Lactate Dehydrogenase Total Creatine Kinase CK-MB (CK-2) CK-MB (CK-2) Rel Index Troponin T C-Reactive Protein NT-Pro-B Natriuret Pep Albumin 3.3 L HDL Cholesterol Arterial Blood Glucose Arterial Blood Ionized Calcium 4.0 L 08/21/20 08/21/20 08/21/20 15:30 15:30 17:52 RBC Hgb Hct MCV Plt Count Lymph % (Auto) [place] % (Auto) Lymph # (Auto) [place] # (Auto) Seg Neutrophils % Seg Neuts % (Manual) Lymphocytes % (Manual) Nucleated RBC % Seg Neutrophils # Lymphocytes # (Manual) PT 17.4 H INR 1.37 H D-Dimer ABG pH POC ABG pCO2 POC ABG pO2 ABG pO2 ABG HCO3 ABG O2 Saturation ABG Base Excess ABG Oxyhemoglobin ABG Sodium ABG Potassium ABG Chloride ABG Glucose Oxyhemoglobin Carboxyhemoglobin Potassium Chloride Carbon Dioxide BUN Creatinine Glucose Calcium Magnesium AST Lactate Dehydrogenase Total Creatine Kinase CK-MB (CK-2) CK-MB (CK-2) Rel Index Troponin T 0.053 H 0.051 H C-Reactive Protein NT-Pro-B Natriuret Pep 33721 H Albumin HDL Cholesterol 35 L Arterial Blood Glucose Arterial Blood Ionized Calcium 08/21/20 08/21/20 08/21/20 17:52 17:52 20:38 RBC Hgb Hct MCV Plt Count Lymph % (Auto) [place] % (Auto) Lymph # (Auto) [place] # (Auto) Seg Neutrophils % Seg Neuts % (Manual) Lymphocytes % (Manual) Nucleated RBC % Seg Neutrophils # Lymphocytes # (Manual) PT INR D-Dimer 251.44 H ABG pH POC ABG pCO2 POC ABG pO2 ABG pO2 ABG HCO3 ABG O2 Saturation ABG Base Excess ABG Oxyhemoglobin ABG Sodium ABG Potassium ABG Chloride ABG Glucose Oxyhemoglobin Carboxyhemoglobin Potassium Chloride Carbon Dioxide BUN Creatinine Glucose Calcium Magnesium AST Lactate Dehydrogenase 303 H Total Creatine Kinase CK-MB (CK-2) CK-MB (CK-2) Rel Index Troponin T 0.045 H C-Reactive Protein 18.90 H NT-Pro-B Natriuret Pep Albumin HDL Cholesterol Arterial Blood Glucose Arterial Blood Ionized Calcium 08/22/20 08/22/20 08/22/20 09:06 15:16 19:49 RBC Hgb Hct MCV Plt Count Lymph % (Auto) [place] % (Auto) Lymph # (Auto) [place] # (Auto) Seg Neutrophils % Seg Neuts % (Manual) Lymphocytes % (Manual) Nucleated RBC % Seg Neutrophils # Lymphocytes # (Manual) PT INR D-Dimer ABG pH POC ABG pCO2 POC ABG pO2 ABG pO2 ABG HCO3 ABG O2 Saturation ABG Base Excess ABG Oxyhemoglobin ABG Sodium ABG Potassium ABG Chloride ABG Glucose Oxyhemoglobin Carboxyhemoglobin Potassium Chloride Carbon Dioxide BUN Creatinine Glucose Calcium Magnesium AST Lactate Dehydrogenase Total Creatine Kinase 49 L 51 L CK-MB (CK-2) 4.3 H CK-MB (CK-2) Rel Index 8.7 H 5.4 H 5.8 H Troponin T C-Reactive Protein NT-Pro-B Natriuret Pep Albumin HDL Cholesterol Arterial Blood Glucose Arterial Blood Ionized Calcium 08/23/20 08/23/20 08/24/20 07:19 07:19 09:54 RBC 5.12 H Hgb 16.3 H Hct 49.1 H MCV 96 H Plt Count 113 L Lymph % (Auto) [place] % (Auto) Lymph # (Auto) [place] # (Auto) Seg Neutrophils % Seg Neuts % (Manual) 89.0 H Lymphocytes % (Manual) 2.0 L Nucleated RBC % 1.0 H Seg Neutrophils # Lymphocytes # (Manual) 0.1 L PT INR D-Dimer ABG pH 7.319 L POC ABG pCO2 97.9 H POC ABG pO2 53.2 L ABG pO2 ABG HCO3 ABG O2 Saturation ABG Base Excess ABG Oxyhemoglobin 86.8 L ABG Sodium ABG Potassium ABG Chloride 87.0 L ABG Glucose 202 H Oxyhemoglobin Carboxyhemoglobin Potassium Chloride 92.3 L Carbon Dioxide 44 H* D BUN 34 H Creatinine Glucose 279 H Calcium Magnesium AST Lactate Dehydrogenase Total Creatine Kinase CK-MB (CK-2) CK-MB (CK-2) Rel Index Troponin T C-Reactive Protein NT-Pro-B Natriuret Pep Albumin 3.4 L HDL Cholesterol Arterial Blood Glucose 202 H Arterial Blood Ionized Calcium 4.4 L 08/24/20 08/24/20 08/25/20 16:19 19:41 11:22 RBC Hgb Hct MCV Plt Count Lymph % (Auto) [place] % (Auto) Lymph # (Auto) [place] # (Auto) Seg Neutrophils % Seg Neuts % (Manual) Lymphocytes % (Manual) Nucleated RBC % Seg Neutrophils # Lymphocytes # (Manual) PT INR D-Dimer ABG pH 7.310 L POC ABG pCO2 101.9 H 103.6 H 87.5 H POC ABG pO2 336.0 H 163.1 H 64.0 L ABG pO2 ABG HCO3 ABG O2 Saturation ABG Base Excess ABG Oxyhemoglobin 99.3 H 98.6 H 91.7 L ABG Sodium 133.7 L 131.9 L 135.7 L ABG Potassium 4.6 H 4.6 H ABG Chloride 89.0 L 90.0 L 89.0 L ABG Glucose 146 H 153 H 137 H Oxyhemoglobin Carboxyhemoglobin Potassium Chloride Carbon Dioxide BUN Creatinine Glucose Calcium Magnesium AST Lactate Dehydrogenase Total Creatine Kinase CK-MB (CK-2) CK-MB (CK-2) Rel Index Troponin T C-Reactive Protein NT-Pro-B Natriuret Pep Albumin HDL Cholesterol Arterial Blood Glucose 146 H 153 H 137 H Arterial Blood Ionized Calcium 4.5 L 08/26/20 08/26/20 08/27/20 04:47 04:47 04:51 RBC Hgb 15.4 H Hct 46.8 H MCV 96 H Plt Count Lymph % (Auto) [place] % (Auto) Lymph # (Auto) [place] # (Auto) Seg Neutrophils % Seg Neuts % (Manual) Lymphocytes % (Manual) Nucleated RBC % Seg Neutrophils # Lymphocytes # (Manual) PT INR D-Dimer ABG pH POC ABG pCO2 POC ABG pO2 ABG pO2 ABG HCO3 ABG O2 Saturation ABG Base Excess ABG Oxyhemoglobin ABG Sodium ABG Potassium ABG Chloride ABG Glucose Oxyhemoglobin Carboxyhemoglobin Potassium 5.3 H D 5.1 H Chloride Carbon Dioxide 48 H* 37 H D BUN 29 H 23 H Creatinine 0.7 L Glucose 154 H 121 H Calcium Magnesium 2.40 H AST Lactate Dehydrogenase Total Creatine Kinase CK-MB (CK-2) CK-MB (CK-2) Rel Index Troponin T C-Reactive Protein NT-Pro-B Natriuret Pep Albumin HDL Cholesterol Arterial Blood Glucose Arterial Blood Ionized Calcium 08/27/20 08/28/20 08/28/20 08:40 08:05 08:05 RBC 5.31 H Hgb 16.7 H Hct 50.2 H MCV 95 H Plt Count Lymph % (Auto) [place] % (Auto) Lymph # (Auto) [place] # (Auto) Seg Neutrophils % Seg Neuts % (Manual) Lymphocytes % (Manual) Nucleated RBC % Seg Neutrophils # Lymphocytes # (Manual) PT INR D-Dimer ABG pH 7.333 L POC ABG pCO2 POC ABG pO2 ABG pO2 69.2 L ABG HCO3 37.5 H ABG O2 Saturation 93.7 L ABG Base Excess 8.4 H ABG Oxyhemoglobin ABG Sodium ABG Potassium ABG Chloride ABG Glucose Oxyhemoglobin 91.9 L Carboxyhemoglobin Potassium Chloride Carbon Dioxide 33 H BUN 25 H Creatinine 0.7 L Glucose 138 H Calcium Magnesium AST Lactate Dehydrogenase Total Creatine Kinase CK-MB (CK-2) CK-MB (CK-2) Rel Index Troponin T C-Reactive Protein NT-Pro-B Natriuret Pep Albumin HDL Cholesterol Arterial Blood Glucose Arterial Blood Ionized Calcium
[2020-08-30] MEDS ORDERED: methylPREDNISolone Sod Succinate 40 MG/1 ML INJ IV NR (12:07)
[2020-08-30 14:07] LABS: Blood Urea Nitrogen 35 mg/dL (9-20); Calcium 8.5 mg/dL (8.4-10.2); Hemolysis Index 16
[2020-08-30 14:11] LABS: BUN/Creatinine Ratio 50
[2020-08-30] MEDS: MORPHINE 2 MG/1 ML INJ IV PRN (14:28)
--- NOTE | 2020-08-30 15:27 | Progress Note ---
Subjective - Reason for Consult Consult date: 08/30/20 Reason for consult: Bipolar - Chief Complaint Chief complaint: The patient was seen resting quietly in bed. He reports dong well. He reports sleep and appetite as good. the patient denies any current suicdal/omicidal ideation and denies hallucinations. REVIEW OF SYSTEMS Constitutional: Negative for weight loss ENT: Negative for stridor Respiratory: Negative for cough or hemoptysis All other systems reviewed and are negative MENTAL STATUS EXAMINATION General Appearance and Behavior: Age appropriate, good hygiene, wearing appropriate clothes, poor eye contact, irritable Cooperation: uncooperative, guarded Mood: "ok" Affect and affective range: congruent with mood Thought Process: Goal directed Thought Content: Impulsive Speech: normal tone and pace Suicidal Ideation: Not SI Homicidal Ideation: Denies Hallucinations: Denies Delusions: Denies Impulse Control: Impaired Insight and Judgment: Limited insight and judgment, Memory: Abnormal Attention: Distractible Orientation: Alert, oriented RECOMMENDATIONS I agree with home meds Risks, benefits and alternatives of medications discussed with the patient, questions answered and consent obtained from patient. PSYCHOTHERAPY: Supportive psychotherapy provided MEDICAL: Per primary team DELIRIUM PRECAUTIONS: Please re-orient patient frequently, keep lights on during the day, and minimize benzodiazepines and opiates as these medications could worsen patient's confusion. 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 The patient understands that if suicidal ideas, homicidal ideas, or any endangering thoughts/behaviors arise, they should immediately seek emergent assistance including but not limited to crisis hotline and emergency room. Follow up with psychiatric out-patient within 7 days or sooner. Please contact with any questions and/or concerns. Case staffed with Dr. Noriega Please contact with any questions and/or concerns. Mental Status Exam - Vital signs Last Vital Signs Temp 97.4 F L 08/30/20 04:04 Pulse 69 08/30/20 03:35 Resp 20 08/30/20 14:28 BP 134/81 08/30/20 04:04 Pulse Ox 93 08/30/20 09:28
--- NOTE | 2020-08-30 16:29 | Progress Note ---
Assessment and Plan Assessment and plan: This is a 49-year-old male presents to the emergency department via EMS from [place]. EMS was called by the racing board marker who says that his oxygen saturation was down in the 40s initially. EMS found him to have a an oxygen saturation in the 70s on 2 L via nasal cannula. Initially he was placed on 6 L via nasal cannula and went up into the mid 80s. He was then placed on CPAP and went up to about 92%. He has a history of hypertension, CHF, COPD and has been here previously for hypercapnic respiratory failure. The patient is currently a poor historian secondary to his current medical condition. 08/22/2020 On 8 L nasal cannula oxygen Cardiology consult appreciated 08/23/2020 More comfortable On 8 L nasal cannula oxygen Patient to be transferred to [facility] with remote telemetry 08/24 Patient seen and examined this morning Remains -encephalopathic and on 15 liter of Oxygen. Pysch medications and apixaban had not been restarted since admission, unsure of the accuracy of the med rec Reviewed prior hx, patient was admitted in Nov 2019 With shortness of breath, was intubated and diagnosed with PE, COPD exacerbation and discharged on Eliquis and steroids Will obtain ABG on Room air if possible. Will obtain Pulmonary consult CXR is unremarkable, Hold transfer to floor until issues sorted out Restart Eliquis Obtain psych consult patient oriented only to person. 08/25: Pulmonary and psych input noted. Evidence of hypercapnia on ABG noted anticipate some correction with BiPAP. Continue current monitoring. Continue IMCU care as patient is too unstable for transfer to the floors at this time. Is still very agitated and encephalopathic. Again when mental status is improved will be apparent discussion with this patient again about need to be on BiPAP even outpatient ramos. 08/26: wean oxygen as tolerated, will transfer to floor in am if continues to i mprove 08/27: Patient seen and examined, mental status showing some improvement, Will transfer to [facility] WITH Continuous tele due to bed space. Discussed with nursing staff to continue close monitoring. 08/28: Patient continues to show remarkable improvement. I did have extensive discussion with the patient again about why it is important to use his BiPAP due to hypercapnic respiratory failure he verbalized understanding he is to be discharged with BiPAP back to his facility. Brief summary patient is a 49-year-old male with a history of COPD hypercapnia and presumed underlining bipolar disease currently resident of [place]. He has been admitted here in the last 2 months with the same symptom presentation which improved with BiPAP use. Anticipate discharge in 2 to 3 days and will need home O2 eval. Continue aggressive weaning of oxygen 08/29/2020; patient is on 6 L of oxygen and saturating 92%. Patient counseled about wearing of his BiPAP. Patient said he will think about it. Need home O2 evaluation. Patient was on 2 to 3 L of oxygen at home and will be discharged once his oxygen requirement decreased to 4 L of oxygen likely tomorrow. 08/30/2020: Patient is currently on 3 L which is his baseline since 2 weeks. He is not wheezing much. IV steroids transition to prednisone 60 mg daily, being tapered by pulmonary. No evidence of volume overload. Acute on chronic hy poxic/hypercapnic respiratory failure. Pulmonary recommends deferring discharge. Patient [facility] that [facility]. Patient has bipolar disorder being followed by psychiatry, deemed stable and signed off today. Discussed with mental health case manager regarding discharge disposition/plan. Hopefully discharge very soon. (1) Acute hypoxemic and hypercapnic respiratory failure Current Visit: Yes Status: Acute Plan to address problem: Patient is on liters nasal cannula oxygen BNP is high Covid ruled out Elevated troponin Possible troponin leak CK and CK-MB are negative (2) Acute exacerbation of CHF (congestive heart failure) Current Visit: Yes Status: Acute Qualifiers: Heart failure type: unspecified Qualified Code(s): I50.9 - Heart failure, unspecified Plan to address problem: BNP is very high and 27,000 11/2019 echocardiogram reports normal left ventricular systolic function with ejection fraction 55 to 60%. Per cardiology no volume overload (3) Pneumonia Current Visit: Yes Status: Acute Plan to address problem: Treat as community-acquired pneumonia Patient on 8 L nasal cannula oxygen Initially on BiPAP Improved Smokes 6 cigarettes a day (4) Suspected 2019 novel coronavirus infection Current Visit: Yes Status: Acute Plan to address problem: Covid ruled out (5) Hypertension Current Visit: Yes Status: Chronic Plan to address problem: Continue antihypertensive (6) acute toxic metabolic encephalopathy (7)DVT prophylaxis Current Visit: Yes Status: Acute Plan to address problem: On heparin and GI prophylaxis History Interval history: Patient reports breathing much better. Is fully alert and oriented. Remains on 3 L of O2 which is his baseline. According patient he has been using a home O2 since 2 weeks. No significant cough. Afebrile. No chest pains. Is currently on prednisone 60 mg daily and pulmonary is tapering the steroids. Patient is bipolar and lives at a boardinghouse and thinks that the cannot return there because his needs are documented. He has no real complaints. Hospitalist Physical - Constitutional Vitals: Temp Pulse Resp BP Pulse Ox 97.4 F L 69 20 134/81 93 08/30/20 04:04 08/30/20 03:35 08/30/20 14:28 08/30/20 04:04 08/30/20 09:28 General appearance: Present: no acute distress, mild distress, other (Mildly obese) - EENT Eyes: Present: PERRL. Absent: scleral icterus - Neck Neck: Present: supple, other (No JVD) - Respiratory Respiratory effort: normal Respiratory: bilateral: diminished - Cardiovascular Rhythm: regular - Extremities Extremities: No edema - Abdominal General gastrointestinal: soft, non-tender, other (Obese) - Integumentary Integumentary: Absent: rash - Psychiatric Psychiatric: cooperative, other (Stable mood) HEART Score - HEART Score Troponin: Troponin T 0.045 ng/mL (0.00-0.029) H 08/21/20 20:38 Results - Labs CBC & Chem 7: 08/28/20 08:05 08/30/20 13:04 Labs: Laboratory Last Values WBC 9.6 K/mm3 (4.5-11.0) 08/28/20 08:05 RBC 5.31 M/mm3 (3.65-5.03) H 08/28/20 08:05 Hgb 16.7 gm/dl (11.8-15.2) H 08/28/20 08:05 Hct 50.2 % (35.5-45.6) H 08/28/20 08:05 MCV 95 fl (84-94) H 08/28/20 08:05 MCH 31 pg (28-32) 08/28/20 08:05 MCHC 33 % (32-34) 08/28/20 08:05 RDW 14.1 % (13.2-15.2) 08/28/20 08:05 Plt Count 162 K/mm3 (140-440) 08/28/20 08:05 Lymph % (Auto) 9.0 % (13.4-35.0) L 08/21/20 15:30 Marshall % (Auto) 15.8 % (0.0-7.3) H 08/21/20 15:30 Eos % (Auto) 0.0 % (0.0-4.3) 08/21/20 15:30 Baso % (Auto) 0.3 % (0.0-1.8) 08/21/20 15:30 Lymph # (Auto) 1.0 K/mm3 (1.2-5.4) L 08/21/20 15:30 Marshall # (Auto) 1.7 K/mm3 (0.0-0.8) H 08/21/20 15:30 Eos # (Auto) 0.0 K/mm3 (0.0-0.4) 08/21/20 15:30 Baso # (Auto) 0.0 K/mm3 (0.0-0.1) 08/21/20 15:30 Add Manual Diff Complete 08/23/20 07:19 Total Counted 100 08/23/20 07:19 Seg Neutrophils % Cream Tester 08/23/20 07:19 Seg Neuts % (Manual) 89.0 % (40.0-70.0) H 08/23/20 07:19 Band Neutrophils % 7.0 % 08/23/20 07:19 Lymphocytes % (Manual) 2.0 % (13.4-35.0) L 08/23/20 07:19 Monocytes % (Manual) 2.0 % (0.0-7.3) 08/23/20 07:19 Nucleated RBC % 1.0 % (0.0-0.9) H 08/23/20 07:19 Seg Neutrophils # 7.9 K/mm3 (1.8-7.7) H 08/21/20 15:30 Seg Neutrophils # Man 6.1 K/mm3 (1.8-7.7) 08/23/20 07:19 Band Neutrophils # 0.5 K/mm3 08/23/20 07:19 Lymphocytes # (Manual) 0.1 K/mm3 (1.2-5.4) L 08/23/20 07:19 Abs React Lymphs (Man) 0.0 K/mm3 08/23/20 07:19 Monocytes # (Manual) 0.1 K/mm3 (0.0-0.8) 08/23/20 07:19 Eosinophils # (Manual) 0.0 K/mm3 (0.0-0.4) 08/23/20 07:19 Basophils # (Manual) 0.0 K/mm3 (0.0-0.1) 08/23/20 07:19 Metamyelocytes # 0.0 K/mm3 08/23/20 07:19 Myelocytes # 0.0 K/mm3 08/23/20 07:19 Promyelocytes # 0.0 K/mm3 08/23/20 07:19 Blast Cells # 0.0 K/mm3 08/23/20 07:19 WBC Morphology Not Reportable 08/23/20 07:19 Hypersegmented Neuts Not Reportable 08/23/20 07:19 Hyposegmented Neuts Not Reportable 08/23/20 07:19 Hypogranular Neuts Not Reportable 08/23/20 07:19 Smudge Cells Not Reportable 08/23/20 07:19 Toxic Granulation Not Reportable 08/23/20 07:19 Toxic Vacuolation Not Reportable 08/23/20 07:19 Dohle Bodies Not Reportable 08/23/20 07:19 Pelger-Huet Anomaly Not Reportable 08/23/20 07:19 Malena Rods Not Reportable 08/23/20 07:19 Platelet Estimate Consistent w auto 08/23/20 07:19 Clumped Platelets Not Reportable 08/23/20 07:19 Plt Clumps, EDTA Not Reportable 08/23/20 07:19 Large Platelets Not Reportable 08/23/20 07:19 Giant Platelets Not Reportable 08/23/20 07:19 Platelet Satelliting Not Reportable 08/23/20 07:19 Plt Morphology Comment Not Reportable 08/23/20 07:19 RBC Morphology Not Reportable 08/23/20 07:19 Dimorphic RBCs Not Reportable 08/23/20 07:19 Polychromasia Not Reportable 08/23/20 07:19 Hypochromasia Not Reportable 08/23/20 07:19 Poikilocytosis Not Reportable 08/23/20 07:19 Anisocytosis Not Reportable 08/23/20 07:19 Microcytosis Not Reportable 08/23/20 07:19 Macrocytosis Not Reportable 08/23/20 07:19 Spherocytes Not Reportable 08/23/20 07:19 Pappenheimer Bodies Not Reportable 08/23/20 07:19 Sickle Cells Not Reportable 08/23/20 07:19 Target Cells Not Reportable 08/23/20 07:19 Tear Drop Cells Not Reportable 08/23/20 07:19 Ovalocytes Not Reportable 08/23/20 07:19 Stomatocytes 2+ 08/23/20 07:19 Helmet Cells Not Reportable 08/23/20 07:19 [place] Bodies Not Reportable 08/23/20 07:19 [place] Rings Not Reportable 08/23/20 07:19 [place] Cells Not Reportable 08/23/20 07:19 Bite Cells Not Reportable 08/23/20 07:19 Crenated Cell Not Reportable 08/23/20 07:19 Elliptocytes Not Reportable 08/23/20 07:19 Acanthocytes (Spur) Not Reportable 08/23/20 07:19 Rouleaux Not Reportable 08/23/20 07:19 Hemoglobin C Crystals Not Reportable 08/23/20 07:19 Schistocytes Not Reportable 08/23/20 07:19 Malaria parasites Not Reportable 08/23/20 07:19 Rock Bodies Not Reportable 08/23/20 07:19 Hem Pathologist Commnt No 08/23/20 07:19 PT 17.4 Sec. (12.2-14.9) H 08/21/20 15:30 INR 1.37 (0.87-1.13) H 08/21/20 15:30 APTT 31.3 Sec. (24.2-36.6) 08/21/20 15:30 D-Dimer 251.44 ng/mlDDU (0-234) H 08/21/20 17:52 ABG pH 7.333 pH Units (7.350-7.450) L 08/27/20 08:40 POC ABG pCO2 87.5 mmHg (32.0-48.0) H 08/25/20 11:22 ABG pCO2 72.2 mm Hg 08/27/20 08:40 POC ABG pO2 64.0 mmHg (83-108) L 08/25/20 11:22 ABG pO2 69.2 mm Hg (80.0-90.0) L 08/27/20 08:40 POC ABG HCO3 49.1 08/25/20 11:22 ABG HCO3 37.5 mmol/L (20.0-26.0) H 08/27/20 08:40 ABG O2 Saturation 93.7 % (95.0-99.0) L 08/27/20 08:40 ABG O2 Content 19.7 (0.0-44) 08/27/20 08:40 POC ABG Base Excess 18.0 08/25/20 11: ABG Base Excess 8.4 mmol/L (-2.0-3.0) H 08/27/20 08:40 ABG Hemoglobin 15.3 gm/dl (14.0-18.0) 08/27/20 08:40 ABG Oxyhemoglobin 91.7 (94-98) L 08/25/20 11:22 ABG Carboxyhemoglobin 1.5 % (0.0-5.0) 08/27/20 08:40 ABG Methemoglobin 0.5 % (0.0-1.5) 08/27/20 08:40 ABG Sodium 135.7 mmol/L (136.0-145.0) L 08/25/20 11:22 ABG Potassium 4.6 mmol/L (3.40-4.50) H 08/25/20 11:22 ABG Chloride 89.0 mmol/L (98-107) L 08/25/20 11:22 ABG Glucose 137 mg/dL (65-95) H 08/25/20 11:22 Oxyhemoglobin 91.9 % (95.0-99.0) L 08/27/20 08:40 Carboxyhemoglobin 0.7 (0.5-1.5) 08/25/20 11:22 FiO2 68 % 08/27/20 08:40 FiO2 % 85.0 08/25/20 11:22 Sodium 140 mmol/L (137-145) 08/30/20 13:04 Potassium 4.7 mmol/L (3.6-5.0) 08/30/20 13:04 Chloride 97.9 mmol/L (98-107) L 08/30/20 13:04 Carbon Dioxide 32 mmol/L (22-30) H 08/30/20 13:04 Anion Gap 15 mmol/L 08/30/20 13:04 BUN 35 mg/dL (9-20) H 08/30/20 13:04 Creatinine 0.7 mg/dL (0.8-1.3) L 08/30/20 13:04 Estimated GFR > 60 ml/min 08/30/20 13:04 BUN/Creatinine Ratio 50 % 08/30/20 13:04 Glucose 167 mg/dL (75-100) H 08/30/20 13:04 POC Glucose 83 mg/dL (70-105) 08/22/20 07:49 Hemoglobin A1c 5.5 % (4-6) 08/22/20 09:06 Lactic Acid 1.30 mmol/L (0.7-2.0) 08/21/20 15:30 Calcium 8.5 mg/dL (8.4-10.2) 08/30/20 13:04 Phosphorus 4.00 mg/dL (2.5-4.5) 08/30/20 13:04 Magnesium 2.30 mg/dL (1.7-2.3) 08/30/20 13:04 Total Bilirubin 0.30 mg/dL (0.1-1.2) 08/23/20 07:19 AST 27 units/L (5-40) 08/23/20 07:19 ALT 26 units/L (7-56) 08/23/20 07:19 Alkaline Phosphatase 74 units/L (35-129) 08/23/20 07:19 Lactate Dehydrogenase 303 units/L (91-180) H 08/21/20 17:52 Total Creatine Kinase 51 units/L (55-170) L 08/22/20 19:49 CK-MB (CK-2) 3.0 ng/mL (0.0-4.0) 08/22/20 19:49 CK-MB (CK-2) Rel Index 5.8 (0-4) H 08/22/20 19:49 Troponin T 0.045 ng/mL (0.00-0.029) H 08/21/20 20:38 C-Reactive Protein 18.90 mg/dL (0.00-1.30) H 08/21/20 17:52 NT-Pro-B Natriuret Pep 43716 pg/mL (0-450) H 08/21/20 15:30 Total Protein 6.6 g/dL (6.3-8.2) 08/23/20 07:19 Albumin 3.4 g/dL (3.9-5) L 08/23/20 07:19 Albumin/Globulin Ratio 1.1 % 08/23/20 07:19 Triglycerides 123 mg/dL (2-149) 08/21/20 15:30 Cholesterol 137 mg/dL (50-199) 08/21/20 15:30 LDL Cholesterol Direct 76 mg/dL (50-130) 08/21/20 15:30 HDL Cholesterol 35 mg/dL (40-59) L 08/21/20 15:30 Cholesterol/HDL Ratio 3.91 % 08/21/20 15:30 Procalcitonin 0.43 ng/mL (<0.15) 08/21/20 17:52 Arterial Blood Glucose 137 mg/dL (65-95) H 08/25/20 11:22 Arterial Blood Ionized Calcium 4.6 mg/dL (4.6-5.3) 08/25/20 11:22 Coronavirus (PCR) Negative (Negative) 08/22/20 Unknown Cohen/IV: Voiding Method Urinal Active Medications - Current Medications Current Medications: Generic Name Dose Route Start Last Admin Trade Name Freq PRN Reason Stop Dose Admin Acetaminophen 650 mg 08/22/20 08:16 08/24/20 03:54 Acetaminophen 325 Mg Tab PO 650 mg Q4H PRN Administration Pain MILD(1-3)/Fever >100.5/DIXON Albuterol 1 mg 08/27/20 16:48 Albuterol 2.5 Mg/3 Ml Nebu IH Q4H PRN Wheezing Albuterol/Ipratropium 1 ampul 08/28/20 08:00 08/30/20 14:50 Ipratropium/Albuterol Sulfate 3 Ml Ampul.Neb IH 1 ampul TIDRT AYAKA Administration Apixaban 5 mg 08/24/20 10:00 08/30/20 09:00 Apixaban 5 Mg Tab PO 5 mg Q12HR AYAKA Administration Arformoterol Tartrate 15 mcg 08/27/20 20:00 08/30/20 08:50 Arformoterol 15 Mcg/2 Ml Nebu IH 15 mcg Q12HRT AYAKA Administration Budesonide 0.5 mg 08/27/20 20:00 08/30/20 08:50 Budesonide 0.5 Mg/2 Ml Nebu IH 0.5 mg Q12HRT AYAKA Administration Carvedilol 3.125 mg 08/24/20 10:00 08/30/20 09:00 Carvedilol 3.125 Mg Tab PO 3.125 mg BID AYAKA Administration Divalproex Sodium 250 mg 08/24/20 10:00 08/30/20 09:01 Divalproex Er 250 Mg Tab PO 250 mg BID AYAKA Administration Famotidine 20 mg 08/22/20 10:00 08/30/20 09:00 Famotidine 20 Mg Tab PO 20 mg DAILY AYAKA Administration Hydroxyzine Pamoate 25 mg 08/24/20 14:00 08/30/20 14:27 Hydroxyzine Pamoate 25 Mg Cap PO 25 mg TID AYAKA Administration Nicotine 14 mg 08/24/20 10:00 08/30/20 09:00 Nicotine 14 Mg/24 Hr Patch TD 14 mg QDAY AYAKA Administration Olanzapine 10 mg 08/24/20 10:00 08/30/20 09:00 Olanzapine 10 Mg Tab PO 10 mg DAILY AYAKA Administration Olanzapine 20 mg 08/24/20 22:00 08/29/20 21:17 Olanzapine 10 Mg Tab PO 20 mg HS AYAKA Administration Ondansetron HCl 4 mg 08/22/20 08:16 Ondansetron 4 Mg/2 Ml Inj IV Q8H PRN Nausea And Vomiting Prednisone 60 mg 08/31/20 10:00 Prednisone 20 Mg Tab PO QDAY AYAKA Sodium Chloride 10 ml 08/22/20 10:00 08/30/20 09:01 Sodium Chloride 0.9% 10 Ml Flush Syringe IV 10 ml BID AYAKA Administration Sodium Chloride 10 ml 08/22/20 08:16 Sodium Chloride 0.9% 10 Ml Flush Syringe IV PRN PRN LINE FLUSH Nutrition/Malnutrition Assess - Dietary Evaluation Nutrition/Malnutrition Findings: Nutrition Notes Start: 08/28/20 13:49 Freq: Status: Active Protocol: Document 08/28/20 13:49 MANI (Rec: 08/28/20 13:49 MANI [id number]) Nutrition Notes Need for Assessment generated from: LOS Initial or Follow up Brief Note Subjective/Other Information Screen for LOS. Pt eating 90% of meals. Nutrition Intervention Revisit per MD consult or patient Sign Off request:
[2020-08-30] MEDS: ACETAMINOPHEN 325 MG TAB PO PRN (19:41)
[2020-08-31] MEDS: BUDESONIDE 0.5 MG/2 ML NEBU IH SCH ×2 (08:40→20:31)
[2020-08-31] MEDS: IPRATROPIUM/ALBUTEROL SULFATE 3 ML AMPUL.NEB IH SCH ×3 (08:41→20:31)
[2020-08-31] MEDS: ARFORMOTEROL 15 MCG/2 ML NEBU IH SCH ×2 (08:41→20:32)
--- NOTE | 2020-08-31 09:12 | Progress Note ---
Assessment and Plan 49 y/o male with known COPD, NABIL, and CHF admitted with acute exacerbation of CHF And COPD with chronic hypercapnic respiratory failure. 08/31/20: The patient has a known history of CHF and should be on daily lasix. not sure why he hasn't which is why I have been giving him PRN IV lasix to make sure he has a daily net negative state and to help with oxygen requirement. Per IMS note from yesterday, baseline flow is 3 liters, however when the patient was discharged in November he was not discharged on home O2. So this baseline must have come from another hospital stay outside of [facility]. I have transitioned the patient to Oral steroids and suggest the following taper Pred 60 daily for 2 days, then 40 daily for 4 days, then 20 daily for 4 days, then 10 daily for 4 days then stop. He has a long history of noncompliance with medications and with NIV therapy at night. I have no objection to discharge as early as today. Patient has been given a follow up appointment in the past which he did not keep, will arrange for another follow up in 10-14 days. I did give lasix today again and reviewed the labs from yesterday which are stable. Please call if questions. 08/30/20: Lasix again today. Suggest checking labs tomorrow morning. Will change to prednisone 60 daily starting tomorrow. Hopeful discharge soon. CM to look into PPV at home if patient will wear it. 08/29/20: Continue to wean FiO2 as tolerated for sats >88%. Change to oral steroids. Discharge planning. 08/28/20: Continue to wean FiO2 as tolerated for sats>88%. Spoke with patient after he woke up. States he really does not want to wear that machine at night and at home but will think about it. Consider changing to orals as early as tomorrow. Would start at 60mg PRednisone daily. 08/25/20: Repeat ABG now and make adjustments accordingly. hopeful will not have to intubate patient. Continue IV steroids. Daily net negative state. May need to restart lasix therapy if BP will allow. CXR for tomorrow. 1. Bipap therapy for now 2. Repeat ABG 3. Ok with IV steroids 4. Continue daily net negative state 5. patient is noncompliant with outpatient therapy. Subjective Date of service: 08/31/20 Principal diagnosis: LLL pneumonia Interval history: No acute events. Last documented oxygen requirement was still 5 liters as of last night. Wore bipap therapy as well. Reviewed IMS note and psych notes from yesterday. Tolerated lasix dosing on yesterday as well. Objective Vital Signs - 12hr 08/30/20 08/30/20 08/30/20 21:11 21:37 21:44 Temperature 97.1 F L 97.9 F Pulse Rate 71 101 H Pulse Rate [ 73 Posterior Bilateral Throughout] Respiratory 20 18 Rate Respiratory 20 Rate [Posterior Bilateral Throughout] Blood Pressure 110/70 149/106 Blood Pressure [Right] O2 Sat by Pulse 93 93 100 Oximetry 08/30/20 08/30/20 08/31/20 22:57 23:03 04:42 Temperature 97.1 F L 97.1 F L Pulse Rate 67 67 59 L Pulse Rate [ Posterior Bilateral Throughout] Respiratory 20 18 20 Rate Respiratory Rate [Posterior Bilateral Throughout] Blood Pressure 126/75 Blood Pressure 110/70 [Right] O2 Sat by Pulse 96 94 96 Oximetry 08/31/20 08:25 Temperature Pulse Rate Pulse Rate [ Posterior Bilateral Throughout] Respiratory Rate Respiratory Rate [Posterior Bilateral Throughout] Blood Pressure Blood Pressure [Right] O2 Sat by Pulse 92 Oximetry Constitutional: no acute distress, alert Eyes: non-icteric ENT: oropharynx moist Neck: supple, no lymphadenopathy Effort: normal Ascultation: Bilateral: clear, wheezes, rales Percussion: Bilateral: not dull Tactile fremitus: Bilateral: normal Cardiovascular: regular rate and rhythm Gastrointestinal: normoactive bowel sounds, soft, non-tender, non-distended Integumentary: normal Extremities: no cyanosis, no edema, pink and warm Neurologic: normal mental status, non-focal exam, pupils equal and round Psychiatric: mood appropriate, affect normal CBC and BMP: 08/28/20 08:05 08/30/20 13:04 ABG, PT/INR, D-dimer: ABG ABG pH 7.333 pH Units (7.350-7.450) L 08/27/20 08:40 POC ABG pCO2 87.5 mmHg (32.0-48.0) H 08/25/20 11:22 ABG pCO2 72.2 mm Hg 08/27/20 08:40 POC ABG pO2 64.0 mmHg (83-108) L 08/25/20 11:22 ABG pO2 69.2 mm Hg (80.0-90.0) L 08/27/20 08:40 POC ABG HCO3 49.1 08/25/20 11:22 ABG O2 Saturation 93.7 % (95.0-99.0) L 08/27/20 08:40 PT/INR, D-dimer PT 17.4 Sec. (12.2-14.9) H 08/21/20 15:30 INR 1.37 (0.87-1.13) H 08/21/20 15:30 D-Dimer 251.44 ng/mlDDU (0-234) H 08/21/20 17:52 Abnormal lab findings: Abnormal Labs 08/21/20 08/21/20 08/21/20 15:13 15:30 15:30 RBC Hgb 15.7 H Hct 46.9 H MCV 95 H Plt Count 84 L Lymph % (Auto) 9.0 L [place] % (Auto) 15.8 H Lymph # (Auto) 1.0 L [place] # (Auto) 1.7 H Seg Neutrophils % 74.9 H Seg Neuts % (Manual) Lymphocytes % (Manual) Nucleated RBC % Seg Neutrophils # 7.9 H Lymphocytes # (Manual) PT INR D-Dimer ABG pH POC ABG pCO2 57.9 H POC ABG pO2 178.0 H ABG pO2 ABG HCO3 ABG O2 Saturation ABG Base Excess ABG Oxyhemoglobin ABG Sodium 134.2 L ABG Potassium 5.1 H ABG Chloride 96.0 L ABG Glucose Oxyhemoglobin Carboxyhemoglobin 4.3 H Potassium Chloride 92.2 L Carbon Dioxide 34 H BUN 47 H Creatinine 3.2 H Glucose 102 H Calcium 8.3 L Magnesium AST 49 H Lactate Dehydrogenase Total Creatine Kinase CK-MB (CK-2) CK-MB (CK-2) Rel Index Troponin T C-Reactive Protein NT-Pro-B Natriuret Pep Albumin 3.3 L HDL Cholesterol Arterial Blood Glucose Arterial Blood Ionized Calcium 4.0 L 08/21/20 08/21/20 08/21/20 15:30 15:30 17:52 RBC Hgb Hct MCV Plt Count Lymph % (Auto) [place] % (Auto) Lymph # (Auto) [place] # (Auto) Seg Neutrophils % Seg Neuts % (Manual) Lymphocytes % (Manual) Nucleated RBC % Seg Neutrophils # Lymphocytes # (Manual) PT 17.4 H INR 1.37 H D-Dimer ABG pH POC ABG pCO2 POC ABG pO2 ABG pO2 ABG HCO3 ABG O2 Saturation ABG Base Excess ABG Oxyhemoglobin ABG Sodium ABG Potassium ABG Chloride ABG Glucose Oxyhemoglobin Carboxyhemoglobin Potassium Chloride Carbon Dioxide BUN Creatinine Glucose Calcium Magnesium AST Lactate Dehydrogenase Total Creatine Kinase CK-MB (CK-2) CK-MB (CK-2) Rel Index Troponin T 0.053 H 0.051 H C-Reactive Protein NT-Pro-B Natriuret Pep 16312 H Albumin HDL Cholesterol 35 L Arterial Blood Glucose Arterial Blood Ionized Calcium 08/21/20 08/21/20 08/21/20 17:52 17:52 20:38 RBC Hgb Hct MCV Plt Count Lymph % (Auto) [place] % (Auto) Lymph # (Auto) [place] # (Auto) Seg Neutrophils % Seg Neuts % (Manual) Lymphocytes % (Manual) Nucleated RBC % Seg Neutrophils # Lymphocytes # (Manual) PT INR D-Dimer 251.44 H ABG pH POC ABG pCO2 POC ABG pO2 ABG pO2 ABG HCO3 ABG O2 Saturation ABG Base Excess ABG Oxyhemoglobin ABG Sodium ABG Potassium ABG Chloride ABG Glucose Oxyhemoglobin Carboxyhemoglobin Potassium Chloride Carbon Dioxide BUN Creatinine Glucose Calcium Magnesium AST Lactate Dehydrogenase 303 H Total Creatine Kinase CK-MB (CK-2) CK-MB (CK-2) Rel Index Troponin T 0.045 H C-Reactive Protein 18.90 H NT-Pro-B Natriuret Pep Albumin HDL Cholesterol Arterial Blood Glucose Arterial Blood Ionized Calcium 08/22/20 08/22/20 08/22/20 09:06 15:16 19:49 RBC Hgb Hct MCV Plt Count Lymph % (Auto) [place] % (Auto) Lymph # (Auto) [place] # (Auto) Seg Neutrophils % Seg Neuts % (Manual) Lymphocytes % (Manual) Nucleated RBC % Seg Neutrophils # Lymphocytes # (Manual) PT INR D-Dimer ABG pH POC ABG pCO2 POC ABG pO2 ABG pO2 ABG HCO3 ABG O2 Saturation ABG Base Excess ABG Oxyhemoglobin ABG Sodium ABG Potassium ABG Chloride ABG Glucose Oxyhemoglobin Carboxyhemoglobin Potassium Chloride Carbon Dioxide BUN Creatinine Glucose Calcium Magnesium AST Lactate Dehydrogenase Total Creatine Kinase 49 L 51 L CK-MB (CK-2) 4.3 H CK-MB (CK-2) Rel Index 8.7 H 5.4 H 5.8 H Troponin T C-Reactive Protein NT-Pro-B Natriuret Pep Albumin HDL Cholesterol Arterial Blood Glucose Arterial Blood Ionized Calcium 08/23/20 08/23/20 08/24/20 07:19 07:19 09:54 RBC 5.12 H Hgb 16.3 H Hct 49.1 H MCV 96 H Plt Count 113 L Lymph % (Auto) [place] % (Auto) Lymph # (Auto) [place] # (Auto) Seg Neutrophils % Seg Neuts % (Manual) 89.0 H Lymphocytes % (Manual) 2.0 L Nucleated RBC % 1.0 H Seg Neutrophils # Lymphocytes # (Manual) 0.1 L PT INR D-Dimer ABG pH 7.319 L POC ABG pCO2 97.9 H POC ABG pO2 53.2 L ABG pO2 ABG HCO3 ABG O2 Saturation ABG Base Excess ABG Oxyhemoglobin 86.8 L ABG Sodium ABG Potassium ABG Chloride 87.0 L ABG Glucose 202 H Oxyhemoglobin Carboxyhemoglobin Potassium Chloride 92.3 L Carbon Dioxide 44 H* D BUN 34 H Creatinine Glucose 279 H Calcium Magnesium AST Lactate Dehydrogenase Total Creatine Kinase CK-MB (CK-2) CK-MB (CK-2) Rel Index Troponin T C-Reactive Protein NT-Pro-B Natriuret Pep Albumin 3.4 L HDL Cholesterol Arterial Blood Glucose 202 H Arterial Blood Ionized Calcium 4.4 L 08/24/20 08/24/20 08/25/20 16:19 19:41 11:22 RBC Hgb Hct MCV Plt Count Lymph % (Auto) [place] % (Auto) Lymph # (Auto) [place] # (Auto) Seg Neutrophils % Seg Neuts % (Manual) Lymphocytes % (Manual) Nucleated RBC % Seg Neutrophils # Lymphocytes # (Manual) PT INR D-Dimer ABG pH 7.310 L POC ABG pCO2 101.9 H 103.6 H 87.5 H POC ABG pO2 336.0 H 163.1 H 64.0 L ABG pO2 ABG HCO3 ABG O2 Saturation ABG Base Excess ABG Oxyhemoglobin 99.3 H 98.6 H 91.7 L ABG Sodium 133.7 L 131.9 L 135.7 L ABG Potassium 4.6 H 4.6 H ABG Chloride 89.0 L 90.0 L 89.0 L ABG Glucose 146 H 153 H 137 H Oxyhemoglobin Carboxyhemoglobin Potassium Chloride Carbon Dioxide BUN Creatinine Glucose Calcium Magnesium AST Lactate Dehydrogenase Total Creatine Kinase CK-MB (CK-2) CK-MB (CK-2) Rel Index Troponin T C-Reactive Protein NT-Pro-B Natriuret Pep Albumin HDL Cholesterol Arterial Blood Glucose 146 H 153 H 137 H Arterial Blood Ionized Calcium 4.5 L 08/26/20 08/26/20 08/27/20 04:47 04:47 04:51 RBC Hgb 15.4 H Hct 46.8 H MCV 96 H Plt Count Lymph % (Auto) [place] % (Auto) Lymph # (Auto) [place] # (Auto) Seg Neutrophils % Seg Neuts % (Manual) Lymphocytes % (Manual) Nucleated RBC % Seg Neutrophils # Lymphocytes # (Manual) PT INR D-Dimer ABG pH POC ABG pCO2 POC ABG pO2 ABG pO2 ABG HCO3 ABG O2 Saturation ABG Base Excess ABG Oxyhemoglobin ABG Sodium ABG Potassium ABG Chloride ABG Glucose Oxyhemoglobin Carboxyhemoglobin Potassium 5.3 H D 5.1 H Chloride Carbon Dioxide 48 H* 37 H D BUN 29 H 23 H Creatinine 0.7 L Glucose 154 H 121 H Calcium Magnesium 2.40 H AST Lactate Dehydrogenase Total Creatine Kinase CK-MB (CK-2) CK-MB (CK-2) Rel Index Troponin T C-Reactive Protein NT-Pro-B Natriuret Pep Albumin HDL Cholesterol Arterial Blood Glucose Arterial Blood Ionized Calcium 08/27/20 08/28/20 08/28/20 08:40 08:05 08:05 RBC 5.31 H Hgb 16.7 H Hct 50.2 H MCV 95 H Plt Count Lymph % (Auto) [place] % (Auto) Lymph # (Auto) [place] # (Auto) Seg Neutrophils % Seg Neuts % (Manual) Lymphocytes % (Manual) Nucleated RBC % Seg Neutrophils # Lymphocytes # (Manual) PT INR D-Dimer ABG pH 7.333 L POC ABG pCO2 POC ABG pO2 ABG pO2 69.2 L ABG HCO3 37.5 H ABG O2 Saturation 93.7 L ABG Base Excess 8.4 H ABG Oxyhemoglobin ABG Sodium ABG Potassium ABG Chloride ABG Glucose Oxyhemoglobin 91.9 L Carboxyhemoglobin Potassium Chloride Carbon Dioxide 33 H BUN 25 H Creatinine 0.7 L Glucose 138 H Calcium Magnesium AST Lactate Dehydrogenase Total Creatine Kinase CK-MB (CK-2) CK-MB (CK-2) Rel Index Troponin T C-Reactive Protein NT-Pro-B Natriuret Pep Albumin HDL Cholesterol Arterial Blood Glucose Arterial Blood Ionized Calcium 08/30/20 13:04 RBC Hgb Hct MCV Plt Count Lymph % (Auto) [place] % (Auto) Lymph # (Auto) [place] # (Auto) Seg Neutrophils % Seg Neuts % (Manual) Lymphocytes % (Manual) Nucleated RBC % Seg Neutrophils # Lymphocytes # (Manual) PT INR D-Dimer ABG pH POC ABG pCO2 POC ABG pO2 ABG pO2 ABG HCO3 ABG O2 Saturation ABG Base Excess ABG Oxyhemoglobin ABG Sodium ABG Potassium ABG Chloride ABG Glucose Oxyhemoglobin Carboxyhemoglobin Potassium Chloride 97.9 L Carbon Dioxide 32 H BUN 35 H Creatinine 0.7 L Glucose 167 H Calcium Magnesium AST Lactate Dehydrogenase Total Creatine Kinase CK-MB (CK-2) CK-MB (CK-2) Rel Index Troponin T C-Reactive Protein NT-Pro-B Natriuret Pep Albumin HDL Cholesterol Arterial Blood Glucose Arterial Blood Ionized Calcium
[2020-08-31] MEDS: FAMOTIDINE 20 MG TAB PO SCH (09:41)
[2020-08-31] MEDS: NICOTINE 14 MG/24 HR PATCH TD SCH (09:42)
[2020-08-31] MEDS: predniSONE 20 MG TAB PO SCH (09:42)
[2020-08-31] MEDS: APIXABAN 5 MG TAB PO SCH ×2 (09:42→22:28)
[2020-08-31] MEDS: hydrOXYzine PAMOATE 25 MG CAP PO SCH ×3 (09:42→20:19)
[2020-08-31] MEDS: DIVALPROEX ER 250 MG TAB PO SCH ×2 (09:42→22:28)
[2020-08-31] MEDS: carvediloL 3.125 MG TAB PO SCH ×2 (09:42→22:32)
[2020-08-31] MEDS ORDERED: FUROSEMIDE 40 MG/4 ML INJ IV ONE (10:08)
[2020-08-31] MEDS: ACETAMINOPHEN 325 MG TAB PO PRN (17:31)
--- NOTE | 2020-08-31 17:32 | Progress Note ---
Assessment and Plan Assessment and plan: This is a 49-year-old male presents to the emergency department via EMS from [place]. EMS was called by the data reduction technician who says that his oxygen saturation was down in the 40s initially. EMS found him to have a an oxygen saturation in the 70s on 2 L via nasal cannula. Initially he was placed on 6 L via nasal cannula and went up into the mid 80s. He was then placed on CPAP and went up to about 92%. He has a history of hypertension, CHF, COPD and has been here previously for hypercapnic respiratory failure. The patient is currently a poor historian secondary to his current medical condition. 08/22/2020 On 8 L nasal cannula oxygen Cardiology consult appreciated 08/23/2020 More comfortable On 8 L nasal cannula oxygen Patient to be transferred to [facility] with remote telemetry 08/24 Patient seen and examined this morning Remains -encephalopathic and on 15 liter of Oxygen. Pysch medications and apixaban had not been restarted since admission, unsure of the accuracy of the med rec Reviewed prior hx, patient was admitted in Nov 2019 With shortness of breath, was intubated and diagnosed with PE, COPD exacerbation and discharged on Eliquis and steroids Will obtain ABG on Room air if possible. Will obtain Pulmonary consult CXR is unremarkable, Hold transfer to floor until issues sorted out Restart Eliquis Obtain psych consult patient oriented only to person. 08/25: Pulmonary and psych input noted. Evidence of hypercapnia on ABG noted anticipate some correction with BiPAP. Continue current monitoring. Continue IMCU care as patient is too unstable for transfer to the floors at this time. Is still very agitated and encephalopathic. Again when mental status is improved will be apparent discussion with this patient again about need to be on BiPAP even outpatient ramos. 08/26: wean oxygen as tolerated, will transfer to floor in am if continues to i mprove 08/27: Patient seen and examined, mental status showing some improvement, Will transfer to [facility] WITH Continuous tele due to bed space. Discussed with nursing staff to continue close monitoring. 08/28: Patient continues to show remarkable improvement. I did have extensive discussion with the patient again about why it is important to use his BiPAP due to hypercapnic respiratory failure he verbalized understanding he is to be discharged with BiPAP back to his facility. Brief summary patient is a 49-year-old male with a history of COPD hypercapnia and presumed underlining bipolar disease currently resident of [place]. He has been admitted here in the last 2 months with the same symptom presentation which improved with BiPAP use. Anticipate discharge in 2 to 3 days and will need home O2 eval. Continue aggressive weaning of oxygen 08/29/2020; patient is on 6 L of oxygen and saturating 92%. Patient counseled about wearing of his BiPAP. Patient said he will think about it. Need home O2 evaluation. Patient was on 2 to 3 L of oxygen at home and will be discharged once his oxygen requirement decreased to 4 L of oxygen likely tomorrow. 08/30/2020: Patient is currently on 3 L which is his baseline since 2 weeks. He is not wheezing much. IV steroids transition to prednisone 60 mg daily, being tapered by pulmonary. No evidence of volume overload. Acute on chronic hy poxic/hypercapnic respiratory failure. Pulmonary recommends deferring discharge. Patient reports that he is not able to [facility] because his needs are not met there. Patient has bipolar disorder being followed by psychiatry, deemed stable and signed off today. Discussed with family independence case manager regarding discharge disposition/plan. Hopefully discharge very soon. 08/31/2020: Patient doing fairly well. Breathing significantly improved. O2 weaned to 1 L today. Patient reports that he has been taking home O2 since 2 weeks but regarding pulmonary, he was discharged home on room air recently. I spoke to family independence case manager and requested to ascertain if patient has home O2 at the facility and I am still waiting for her call back pending discharge. (1) Acute hypoxemic and hypercapnic respiratory failure Current Visit: Yes Status: Acute Plan to address problem: Patient is on liters nasal cannula oxygen BNP is high Covid ruled out Elevated troponin Possible troponin leak CK and CK-MB are negative (2) Acute exacerbation of CHF (congestive heart failure) Current Visit: Yes Status: Acute Qualifiers: Heart failure type: unspecified Qualified Code(s): I50.9 - Heart failure, unspecified Plan to address problem: BNP is very high and 27,000 11/2019 echocardiogram reports normal left ventricular systolic function with ejection fraction 55 to 60%. Per cardiology no volume overload (3) Pneumonia Current Visit: Yes Status: Acute Plan to address problem: Treat as community-acquired pneumonia Patient on 8 L nasal cannula oxygen Initially on BiPAP Improved Smokes 6 cigarettes a day (4) Suspected 2019 novel coronavirus infection Current Visit: Yes Status: Acute Plan to address problem: Covid ruled out (5) Hypertension Current Visit: Yes Status: Chronic Plan to address problem: Continue antihypertensive (6) acute toxic metabolic encephalopathy (7)DVT prophylaxis Current Visit: Yes Status: Acute Plan to address problem: On heparin and GI prophylaxis History Interval history: Patient doing fairly well. Breathing significantly improved. O2 weaned to 1 L today. Patient reports that he has been taking home O2 since 2 weeks but regarding pulmonary, he was discharged home on room air recently. I spoke to family independence case manager and requested to ascertain if patient has home O2 at the facility and I am still waiting for her call back pending discharge. Hospitalist Physical - Constitutional Vitals: Temp Pulse Resp BP Pulse Ox 97.5 F L 70 22 100/67 92 08/31/20 11:59 08/31/20 14:40 08/31/20 14:40 08/31/20 11:59 08/31/20 11:59 General appearance: Present: no acute distress, mild distress, other (Mildly obese) - EENT Eyes: Present: PERRL, EOM intact ENT: clear oral mucosa - Neck Neck: Present: supple - Respiratory Respiratory effort: normal Respiratory: bilateral: wheezing (Mild to moderate expiratory wheezes.) - Cardiovascular Rhythm: regular - Extremities Extremities: No edema - Abdominal General gastrointestinal: soft, non-tender - Integumentary Integumentary: Absent: rash - Neurologic Neurologic: moves all extremities HEART Score - HEART Score Troponin: Troponin T 0.045 ng/mL (0.00-0.029) H 08/21/20 20:38 Results - Labs CBC & Chem 7: 08/28/20 08:05 08/30/20 13:04 Labs: Laboratory Last Values WBC 9.6 K/mm3 (4.5-11.0) 08/28/20 08:05 RBC 5.31 M/mm3 (3.65-5.03) H 08/28/20 08:05 Hgb 16.7 gm/dl (11.8-15.2) H 08/28/20 08:05 Hct 50.2 % (35.5-45.6) H 08/28/20 08:05 MCV 95 fl (84-94) H 08/28/20 08:05 MCH 31 pg (28-32) 08/28/20 08:05 MCHC 33 % (32-34) 08/28/20 08:05 RDW 14.1 % (13.2-15.2) 08/28/20 08:05 Plt Count 162 K/mm3 (140-440) 08/28/20 08:05 Lymph % (Auto) 9.0 % (13.4-35.0) L 08/21/20 15:30 [place] % (Auto) 15.8 % (0.0-7.3) H 08/21/20 15:30 Eos % (Auto) 0.0 % (0.0-4.3) 08/21/20 15:30 Baso % (Auto) 0.3 % (0.0-1.8) 08/21/20 15:30 Lymph # (Auto) 1.0 K/mm3 (1.2-5.4) L 08/21/20 15:30 [place] # (Auto) 1.7 K/mm3 (0.0-0.8) H 08/21/20 15:30 Eos # (Auto) 0.0 K/mm3 (0.0-0.4) 08/21/20 15:30 Baso # (Auto) 0.0 K/mm3 (0.0-0.1) 08/21/20 15:30 Add Manual Diff Complete 08/23/20 07:19 Total Counted 100 08/23/20 07:19 Seg Neutrophils % Legal Records Manager 08/23/20 07:19 Seg Neuts % (Manual) 89.0 % (40.0-70.0) H 08/23/20 07:19 Band Neutrophils % 7.0 % 08/23/20 07:19 Lymphocytes % (Manual) 2.0 % (13.4-35.0) L 08/23/20 07:19 Monocytes % (Manual) 2.0 % (0.0-7.3) 08/23/20 07:19 Nucleated RBC % 1.0 % (0.0-0.9) H 08/23/20 07:19 Seg Neutrophils # 7.9 K/mm3 (1.8-7.7) H 08/21/20 15:30 Seg Neutrophils # Man 6.1 K/mm3 (1.8-7.7) 08/23/20 07:19 Band Neutrophils # 0.5 K/mm3 08/23/20 07:19 Lymphocytes # (Manual) 0.1 K/mm3 (1.2-5.4) L 08/23/20 07:19 Abs React Lymphs (Man) 0.0 K/mm3 08/23/20 07:19 Monocytes # (Manual) 0.1 K/mm3 (0.0-0.8) 08/23/20 07:19 Eosinophils # (Manual) 0.0 K/mm3 (0.0-0.4) 08/23/20 07:19 Basophils # (Manual) 0.0 K/mm3 (0.0-0.1) 08/23/20 07:19 Metamyelocytes # 0.0 K/mm3 08/23/20 07:19 Myelocytes # 0.0 K/mm3 08/23/20 07:19 Promyelocytes # 0.0 K/mm3 08/23/20 07:19 Blast Cells # 0.0 K/mm3 08/23/20 07:19 WBC Morphology Not Reportable 08/23/20 07:19 Hypersegmented Neuts Not Reportable 08/23/20 07:19 Hyposegmented Neuts Not Reportable 08/23/20 07:19 Hypogranular Neuts Not Reportable 08/23/20 07:19 Smudge Cells Not Reportable 08/23/20 07:19 Toxic Granulation Not Reportable 08/23/20 07:19 Toxic Vacuolation Not Reportable 08/23/20 07:19 Dohle Bodies Not Reportable 08/23/20 07:19 Pelger-Huet Anomaly Not Reportable 08/23/20 07:19 Malena Rods Not Reportable 08/23/20 07:19 Platelet Estimate Consistent w auto 08/23/20 07:19 Clumped Platelets Not Reportable 08/23/20 07:19 Plt Clumps, EDTA Not Reportable 08/23/20 07:19 Large Platelets Not Reportable 08/23/20 07:19 Giant Platelets Not Reportable 08/23/20 07:19 Platelet Satelliting Not Reportable 08/23/20 07:19 Plt Morphology Comment Not Reportable 08/23/20 07:19 RBC Morphology Not Reportable 08/23/20 07:19 Dimorphic RBCs Not Reportable 08/23/20 07:19 Polychromasia Not Reportable 08/23/20 07:19 Hypochromasia Not Reportable 08/23/20 07:19 Poikilocytosis Not Reportable 08/23/20 07:19 Anisocytosis Not Reportable 08/23/20 07:19 Microcytosis Not Reportable 08/23/20 07:19 Macrocytosis Not Reportable 08/23/20 07:19 Spherocytes Not Reportable 08/23/20 07:19 Pappenheimer Bodies Not Reportable 08/23/20 07:19 Sickle Cells Not Reportable 08/23/20 07:19 Target Cells Not Reportable 08/23/20 07:19 Tear Drop Cells Not Reportable 08/23/20 07:19 Ovalocytes Not Reportable 08/23/20 07:19 Stomatocytes 2+ 08/23/20 07:19 Helmet Cells Not Reportable 08/23/20 07:19 [place] Bodies Not Reportable 08/23/20 07:19 [place] Rings Not Reportable 08/23/20 07:19 [place] Cells Not Reportable 08/23/20 07:19 Bite Cells Not Reportable 08/23/20 07:19 Crenated Cell Not Reportable 08/23/20 07:19 Elliptocytes Not Reportable 08/23/20 07:19 Acanthocytes (Spur) Not Reportable 08/23/20 07:19 Rouleaux Not Reportable 08/23/20 07:19 Hemoglobin C Crystals Not Reportable 08/23/20 07:19 Schistocytes Not Reportable 08/23/20 07:19 Malaria parasites Not Reportable 08/23/20 07:19 Rock Bodies Not Reportable 08/23/20 07:19 Hem Pathologist Commnt No 08/23/20 07:19 PT 17.4 Sec. (12.2-14.9) H 08/21/20 15:30 INR 1.37 (0.87-1.13) H 08/21/20 15:30 APTT 31.3 Sec. (24.2-36.6) 08/21/20 15:30 D-Dimer 251.44 ng/mlDDU (0-234) H 08/21/20 17:52 ABG pH 7.333 pH Units (7.350-7.450) L 08/27/20 08:40 POC ABG pCO2 87.5 mmHg (32.0-48.0) H 08/25/20 11:22 ABG pCO2 72.2 mm Hg 08/27/20 08:40 POC ABG pO2 64.0 mmHg (83-108) L 08/25/20 11:22 ABG pO2 69.2 mm Hg (80.0-90.0) L 08/27/20 08:40 POC ABG HCO3 49.1 08/25/20 11: ABG HCO3 37.5 mmol/L (20.0-26.0) H 08/27/20 08:40 ABG O2 Saturation 93.7 % (95.0-99.0) L 08/27/20 08:40 ABG O2 Content 19.7 (0.0-44) 08/27/20 08:40 POC ABG Base Excess 18.0 08/25/20 11: ABG Base Excess 8.4 mmol/L (-2.0-3.0) H 08/27/20 08:40 ABG Hemoglobin 15.3 gm/dl (14.0-18.0) 08/27/20 08:40 ABG Oxyhemoglobin 91.7 (94-98) L 08/25/20 11:22 ABG Carboxyhemoglobin 1.5 % (0.0-5.0) 08/27/20 08:40 ABG Methemoglobin 0.5 % (0.0-1.5) 08/27/20 08:40 ABG Sodium 135.7 mmol/L (136.0-145.0) L 08/25/20 11:22 ABG Potassium 4.6 mmol/L (3.40-4.50) H 08/25/20 11:22 ABG Chloride 89.0 mmol/L (98-107) L 08/25/20 11:22 ABG Glucose 137 mg/dL (65-95) H 08/25/20 11: Oxyhemoglobin 91.9 % (95.0-99.0) L 08/27/20 08:40 Carboxyhemoglobin 0.7 (0.5-1.5) 08/25/20 11: FiO2 68 % 08/27/20 08:40 FiO2 % 85.0 08/25/20 11:22 Sodium 140 mmol/L (137-145) 08/30/20 13:04 Potassium 4.7 mmol/L (3.6-5.0) 08/30/20 13:04 Chloride 97.9 mmol/L (98-107) L 08/30/20 13:04 Carbon Dioxide 32 mmol/L (22-30) H 08/30/20 13:04 Anion Gap 15 mmol/L 08/30/20 13:04 BUN 35 mg/dL (9-20) H 08/30/20 13:04 Creatinine 0.7 mg/dL (0.8-1.3) L 08/30/20 13:04 Estimated GFR > 60 ml/min 08/30/20 13:04 BUN/Creatinine Ratio 50 % 08/30/20 13:04 Glucose 167 mg/dL (75-100) H 08/30/20 13:04 POC Glucose 83 mg/dL (70-105) 08/22/20 07:49 Hemoglobin A1c 5.5 % (4-6) 08/22/20 09:06 Lactic Acid 1.30 mmol/L (0.7-2.0) 08/21/20 15:30 Calcium 8.5 mg/dL (8.4-10.2) 08/30/20 13:04 Phosphorus 4.00 mg/dL (2.5-4.5) 08/30/20 13:04 Magnesium 2.30 mg/dL (1.7-2.3) 08/30/20 13:04 Total Bilirubin 0.30 mg/dL (0.1-1.2) 08/23/20 07:19 AST 27 units/L (5-40) 08/23/20 07:19 ALT 26 units/L (7-56) 08/23/20 07:19 Alkaline Phosphatase 74 units/L (35-129) 08/23/20 07:19 Lactate Dehydrogenase 303 units/L (91-180) H 08/21/20 17:52 Total Creatine Kinase 51 units/L (55-170) L 08/22/20 19:49 CK-MB (CK-2) 3.0 ng/mL (0.0-4.0) 08/22/20 19:49 CK-MB (CK-2) Rel Index 5.8 (0-4) H 08/22/20 19:49 Troponin T 0.045 ng/mL (0.00-0.029) H 08/21/20 20:38 C-Reactive Protein 18.90 mg/dL (0.00-1.30) H 08/21/20 17:52 NT-Pro-B Natriuret Pep 75658 pg/mL (0-450) H 08/21/20 15:30 Total Protein 6.6 g/dL (6.3-8.2) 08/23/20 07:19 Albumin 3.4 g/dL (3.9-5) L 08/23/20 07:19 Albumin/Globulin Ratio 1.1 % 08/23/20 07:19 Triglycerides 123 mg/dL (2-149) 08/21/20 15:30 Cholesterol 137 mg/dL (50-199) 08/21/20 15:30 LDL Cholesterol Direct 76 mg/dL (50-130) 08/21/20 15:30 HDL Cholesterol 35 mg/dL (40-59) L 08/21/20 15:30 Cholesterol/HDL Ratio 3.91 % 08/21/20 15:30 Procalcitonin 0.43 ng/mL (<0.15) 08/21/20 17:52 Arterial Blood Glucose 137 mg/dL (65-95) H 08/25/20 11:22 Arterial Blood Ionized Calcium 4.6 mg/dL (4.6-5.3) 08/25/20 11:22 Coronavirus (PCR) Negative (Negative) 08/22/20 Unknown Cohen/IV: Voiding Method Urinal Active Medications - Current Medications Current Medications: Generic Name Dose Route Start Last Admin Trade Name Freq PRN Reason Stop Dose Admin Acetaminophen 650 mg 08/22/20 08:16 08/30/20 19:41 Acetaminophen 325 Mg Tab PO 650 mg Q4H PRN Administration Pain MILD(1-3)/Fever >100.5/DIXON Albuterol 1 mg 08/27/20 16:48 Albuterol 2.5 Mg/3 Ml Nebu IH Q4H PRN Wheezing Albuterol/Ipratropium 1 ampul 08/28/20 08:00 08/31/20 14:40 Ipratropium/Albuterol Sulfate 3 Ml Ampul.Neb IH 1 ampul TIDRT AYAKA Administration Apixaban 5 mg 08/24/20 10:00 08/31/20 09:42 Apixaban 5 Mg Tab PO 5 mg Q12HR AYAKA Administration Arformoterol Tartrate 15 mcg 08/27/20 20:00 08/31/20 08:41 Arformoterol 15 Mcg/2 Ml Nebu IH 15 mcg Q12HRT AYAKA Administration Budesonide 0.5 mg 08/27/20 20:00 08/31/20 08:40 Budesonide 0.5 Mg/2 Ml Nebu IH 0.5 mg Q12HRT AYAKA Administration Carvedilol 3.125 mg 08/24/20 10:00 08/31/20 09:42 Carvedilol 3.125 Mg Tab PO 3.125 mg BID AYAKA Administration Divalproex Sodium 250 mg 08/24/20 10:00 08/31/20 09:42 Divalproex Er 250 Mg Tab PO 250 mg BID AYAKA Administration Famotidine 20 mg 08/22/20 10:00 08/31/20 09:41 Famotidine 20 Mg Tab PO 20 mg DAILY AYAKA Administration Hydroxyzine Pamoate 25 mg 08/24/20 14:00 08/31/20 13:40 Hydroxyzine Pamoate 25 Mg Cap PO 25 mg TID AYAKA Administration Nicotine 14 mg 08/24/20 10:00 08/31/20 09:42 Nicotine 14 Mg/24 Hr Patch TD 14 mg QDAY AYAKA Administration Olanzapine 10 mg 08/24/20 10:00 08/31/20 09:43 Olanzapine 10 Mg Tab PO 10 mg DAILY AYAKA Administration Olanzapine 20 mg 08/24/20 22:00 08/30/20 21:52 Olanzapine 10 Mg Tab PO 20 mg HS AYAKA Administration Ondansetron HCl 4 mg 08/22/20 08:16 Ondansetron 4 Mg/2 Ml Inj IV Q8H PRN Nausea And Vomiting Prednisone 60 mg 08/31/20 10:00 08/31/20 09:42 Prednisone 20 Mg Tab PO 60 mg QDAY AYAKA Administration Sodium Chloride 10 ml 08/22/20 10:00 08/31/20 09:43 Sodium Chloride 0.9% 10 Ml Flush Syringe IV 10 ml BID AYAKA Administration Sodium Chloride 10 ml 08/22/20 08:16 Sodium Chloride 0.9% 10 Ml Flush Syringe IV PRN PRN LINE FLUSH Nutrition/Malnutrition Assess - Dietary Evaluation Nutrition/Malnutrition Findings: Nutrition Notes Start: 08/28/20 13:49 Freq: Status: Active Protocol: Document 08/28/20 13:49 MANI (Rec: 08/28/20 13:49 MANI [id number]) Nutrition Notes Need for Assessment generated from: LOS Initial or Follow up Brief Note Subjective/Other Information Screen for LOS. Pt eating 90% of meals. Nutrition Intervention Revisit per MD consult or patient Sign Off request:
[2020-08-31] MEDS: BUTALB/ACETAMINOPHEN/CAFFEINE TAB PO PRN (20:19)
[2020-09-01] MEDS: BUDESONIDE 0.5 MG/2 ML NEBU IH SCH ×2 (08:45→20:32)
[2020-09-01] MEDS: IPRATROPIUM/ALBUTEROL SULFATE 3 ML AMPUL.NEB IH SCH ×3 (08:45→20:32)
[2020-09-01] MEDS: ARFORMOTEROL 15 MCG/2 ML NEBU IH SCH ×2 (08:45→20:32)
[2020-09-01] MEDS: hydrOXYzine PAMOATE 25 MG CAP PO SCH ×3 (09:24→21:24)
[2020-09-01] MEDS: DIVALPROEX ER 250 MG TAB PO SCH ×2 (09:24→21:24)
[2020-09-01] MEDS: predniSONE 20 MG TAB PO SCH (09:24)
[2020-09-01] MEDS: FAMOTIDINE 20 MG TAB PO SCH (09:24)
[2020-09-01] MEDS: carvediloL 3.125 MG TAB PO SCH ×2 (09:25→21:24)
[2020-09-01] MEDS: NICOTINE 14 MG/24 HR PATCH TD SCH (09:25)
[2020-09-01] MEDS: APIXABAN 5 MG TAB PO SCH ×2 (09:25→21:24)
--- NOTE | 2020-09-01 12:11 | Progress Note ---
Assessment and Plan 49 y/o male with known COPD, NABIL, and CHF admitted with acute exacerbation of CHF And COPD with chronic hypercapnic respiratory failure. 09/01/20: no new recs pulzach ramso. Will see as needed over the weekend. 08/31/20: The patient has a known history of CHF and should be on daily lasix. not sure why he hasn't which is why I have been giving him PRN IV lasix to make sure he has a daily net negative state and to help with oxygen requirement. Per IMS note from yesterday, baseline flow is 3 liters, however when the patient was discharged in November he was not discharged on home O2. So this baseline must have come from another hospital stay outside of [facility]. I have transitioned the patient to Oral steroids and suggest the following taper Pred 60 daily for 2 days, then 40 daily for 4 days, then 20 daily for 4 days, then 10 daily for 4 days then stop. He has a long history of noncompliance with medications and with NIV therapy at night. I have no objection to discharge as early as today. Patient has been given a follow up appointment in the past which he did not keep, will arrange for another follow up in 10-14 days. I did give lasix today again and reviewed the labs from yesterday which are stable. Please call if qu estions. 08/30/20: Lasix again today. Suggest checking labs tomorrow morning. Will change to prednisone 60 daily starting tomorrow. Hopeful discharge soon. CM to look into PPV at home if patient will wear it. 08/29/20: Continue to wean FiO2 as tolerated for sats >88%. Change to oral steroids. Discharge planning. 08/28/20: Continue to wean FiO2 as tolerated for sats>88%. Spoke with patient after he woke up. States he really does not want to wear that machine at night and at home but will think about it. Consider changing to orals as early as tomorrow. Would start at 60mg PRednisone daily. 08/25/20: Repeat ABG now and make adjustments accordingly. hopeful will not have to intubate patient. Continue IV steroids. Daily net negative state. May need to restart lasix therapy if BP will allow. CXR for tomorrow. 1. Bipap therapy for now 2. Repeat ABG 3. Ok with IV steroids 4. Continue daily net negative state 5. patient is noncompliant with outpatient therapy. Subjective Date of service: 09/01/20 Principal diagnosis: LLL pneumonia Interval history: No acute events. Stable on 3 liters. Objective Vital Signs - 12hr 09/01/20 09/01/20 09/01/20 03:59 08:40 08:45 Temperature 98.1 F Pulse Rate 69 Pulse Rate [ 132 H 93 H Posterior Bilateral Throughout] Respiratory 18 Rate Respiratory 18 18 Rate [Posterior Bilateral Throughout] Blood Pressure 121/82 O2 Sat by Pulse 97 Oximetry 09/01/20 09:57 Temperature Pulse Rate Pulse Rate [ Posterior Bilateral Throughout] Respiratory Rate Respiratory Rate [Posterior Bilateral Throughout] Blood Pressure O2 Sat by Pulse 94 Oximetry Constitutional: no acute distress, alert Eyes: non-icteric ENT: oropharynx moist Neck: supple, no lymphadenopathy Effort: normal Ascultation: Bilateral: clear, wheezes, rales Percussion: Bilateral: not dull Tactile fremitus: Bilateral: normal Cardiovascular: regular rate and rhythm Gastrointestinal: normoactive bowel sounds, soft, non-tender, non-distended Integumentary: normal Extremities: no cyanosis, no edema, pink and warm Neurologic: normal mental status, non-focal exam, pupils equal and round Psychiatric: mood appropriate, affect normal CBC and BMP: 08/28/20 08:05 08/30/20 13:04 ABG, PT/INR, D-dimer: ABG ABG pH 7.333 pH Units (7.350-7.450) L 08/27/20 08:40 POC ABG pCO2 87.5 mmHg (32.0-48.0) H 08/25/20 11:22 ABG pCO2 72.2 mm Hg 08/27/20 08:40 POC ABG pO2 64.0 mmHg (83-108) L 08/25/20 11:22 ABG pO2 69.2 mm Hg (80.0-90.0) L 08/27/20 08:40 POC ABG HCO3 49.1 08/25/20 11:22 ABG O2 Saturation 93.7 % (95.0-99.0) L 08/27/20 08:40 PT/INR, D-dimer PT 17.4 Sec. (12.2-14.9) H 08/21/20 15:30 INR 1.37 (0.87-1.13) H 08/21/20 15:30 D-Dimer 251.44 ng/mlDDU (0-234) H 08/21/20 17:52 Abnormal lab findings: Abnormal Labs 08/21/20 08/21/20 08/21/20 15:13 15:30 15:30 RBC Hgb 15.7 H Hct 46.9 H MCV 95 H Plt Count 84 L Lymph % (Auto) 9.0 L Victoria % (Auto) 15.8 H Lymph # (Auto) 1.0 L Victoria # (Auto) 1.7 H Seg Neutrophils % 74.9 H Seg Neuts % (Manual) Lymphocytes % (Manual) Nucleated RBC % Seg Neutrophils # 7.9 H Lymphocytes # (Manual) PT INR D-Dimer ABG pH POC ABG pCO2 57.9 H POC ABG pO2 178.0 H ABG pO2 ABG HCO3 ABG O2 Saturation ABG Base Excess ABG Oxyhemoglobin ABG Sodium 134.2 L ABG Potassium 5.1 H ABG Chloride 96.0 L ABG Glucose Oxyhemoglobin Carboxyhemoglobin 4.3 H Potassium Chloride 92.2 L Carbon Dioxide 34 H BUN 47 H Creatinine 3.2 H Glucose 102 H Calcium 8.3 L Magnesium AST 49 H Lactate Dehydrogenase Total Creatine Kinase CK-MB (CK-2) CK-MB (CK-2) Rel Index Troponin T C-Reactive Protein NT-Pro-B Natriuret Pep Albumin 3.3 L HDL Cholesterol Arterial Blood Glucose Arterial Blood Ionized Calcium 4.0 L 08/21/20 08/21/20 08/21/20 15:30 15:30 17:52 RBC Hgb Hct MCV Plt Count Lymph % (Auto) Victoria % (Auto) Lymph # (Auto) Victoria # (Auto) Seg Neutrophils % Seg Neuts % (Manual) Lymphocytes % (Manual) Nucleated RBC % Seg Neutrophils # Lymphocytes # (Manual) PT 17.4 H INR 1.37 H D-Dimer ABG pH POC ABG pCO2 POC ABG pO2 ABG pO2 ABG HCO3 ABG O2 Saturation ABG Base Excess ABG Oxyhemoglobin ABG Sodium ABG Potassium ABG Chloride ABG Glucose Oxyhemoglobin Carboxyhemoglobin Potassium Chloride Carbon Dioxide BUN Creatinine Glucose Calcium Magnesium AST Lactate Dehydrogenase Total Creatine Kinase CK-MB (CK-2) CK-MB (CK-2) Rel Index Troponin T 0.053 H 0.051 H C-Reactive Protein NT-Pro-B Natriuret Pep 63311 H Albumin HDL Cholesterol 35 L Arterial Blood Glucose Arterial Blood Ionized Calcium 08/21/20 08/21/20 08/21/20 17:52 17:52 20:38 RBC Hgb Hct MCV Plt Count Lymph % (Auto) Victoria % (Auto) Lymph # (Auto) Victoria # (Auto) Seg Neutrophils % Seg Neuts % (Manual) Lymphocytes % (Manual) Nucleated RBC % Seg Neutrophils # Lymphocytes # (Manual) PT INR D-Dimer 251.44 H ABG pH POC ABG pCO2 POC ABG pO2 ABG pO2 ABG HCO3 ABG O2 Saturation ABG Base Excess ABG Oxyhemoglobin ABG Sodium ABG Potassium ABG Chloride ABG Glucose Oxyhemoglobin Carboxyhemoglobin Potassium Chloride Carbon Dioxide BUN Creatinine Glucose Calcium Magnesium AST Lactate Dehydrogenase 303 H Total Creatine Kinase CK-MB (CK-2) CK-MB (CK-2) Rel Index Troponin T 0.045 H C-Reactive Protein 18.90 H NT-Pro-B Natriuret Pep Albumin HDL Cholesterol Arterial Blood Glucose Arterial Blood Ionized Calcium 08/22/20 08/22/20 08/22/20 09:06 15:16 19:49 RBC Hgb Hct MCV Plt Count Lymph % (Auto) Victoria % (Auto) Lymph # (Auto) Victoria # (Auto) Seg Neutrophils % Seg Neuts % (Manual) Lymphocytes % (Manual) Nucleated RBC % Seg Neutrophils # Lymphocytes # (Manual) PT INR D-Dimer ABG pH POC ABG pCO2 POC ABG pO2 ABG pO2 ABG HCO3 ABG O2 Saturation ABG Base Excess ABG Oxyhemoglobin ABG Sodium ABG Potassium ABG Chloride ABG Glucose Oxyhemoglobin Carboxyhemoglobin Potassium Chloride Carbon Dioxide BUN Creatinine Glucose Calcium Magnesium AST Lactate Dehydrogenase Total Creatine Kinase 49 L 51 L CK-MB (CK-2) 4.3 H CK-MB (CK-2) Rel Index 8.7 H 5.4 H 5.8 H Troponin T C-Reactive Protein NT-Pro-B Natriuret Pep Albumin HDL Cholesterol Arterial Blood Glucose Arterial Blood Ionized Calcium 08/23/20 08/23/20 08/24/20 07:19 07:19 09:54 RBC 5.12 H Hgb 16.3 H Hct 49.1 H MCV 96 H Plt Count 113 L Lymph % (Auto) Victoria % (Auto) Lymph # (Auto) Victoria # (Auto) Seg Neutrophils % Seg Neuts % (Manual) 89.0 H Lymphocytes % (Manual) 2.0 L Nucleated RBC % 1.0 H Seg Neutrophils # Lymphocytes # (Manual) 0.1 L PT INR D-Dimer ABG pH 7.319 L POC ABG pCO2 97.9 H POC ABG pO2 53.2 L ABG pO2 ABG HCO3 ABG O2 Saturation ABG Base Excess ABG Oxyhemoglobin 86.8 L ABG Sodium ABG Potassium ABG Chloride 87.0 L ABG Glucose 202 H Oxyhemoglobin Carboxyhemoglobin Potassium Chloride 92.3 L Carbon Dioxide 44 H* D BUN 34 H Creatinine Glucose 279 H Calcium Magnesium AST Lactate Dehydrogenase Total Creatine Kinase CK-MB (CK-2) CK-MB (CK-2) Rel Index Troponin T C-Reactive Protein NT-Pro-B Natriuret Pep Albumin 3.4 L HDL Cholesterol Arterial Blood Glucose 202 H Arterial Blood Ionized Calcium 4.4 L 08/24/20 08/24/20 08/25/20 16:19 19:41 11:22 RBC Hgb Hct MCV Plt Count Lymph % (Auto) Victoria % (Auto) Lymph # (Auto) [place] # (Auto) Seg Neutrophils % Seg Neuts % (Manual) Lymphocytes % (Manual) Nucleated RBC % Seg Neutrophils # Lymphocytes # (Manual) PT INR D-Dimer ABG pH 7.310 L POC ABG pCO2 101.9 H 103.6 H 87.5 H POC ABG pO2 336.0 H 163.1 H 64.0 L ABG pO2 ABG HCO3 ABG O2 Saturation ABG Base Excess ABG Oxyhemoglobin 99.3 H 98.6 H 91.7 L ABG Sodium 133.7 L 131.9 L 135.7 L ABG Potassium 4.6 H 4.6 H ABG Chloride 89.0 L 90.0 L 89.0 L ABG Glucose 146 H 153 H 137 H Oxyhemoglobin Carboxyhemoglobin Potassium Chloride Carbon Dioxide BUN Creatinine Glucose Calcium Magnesium AST Lactate Dehydrogenase Total Creatine Kinase CK-MB (CK-2) CK-MB (CK-2) Rel Index Troponin T C-Reactive Protein NT-Pro-B Natriuret Pep Albumin HDL Cholesterol Arterial Blood Glucose 146 H 153 H 137 H Arterial Blood Ionized Calcium 4.5 L 08/26/20 08/26/20 08/27/20 04:47 04:47 04:51 RBC Hgb 15.4 H Hct 46.8 H MCV 96 H Plt Count Lymph % (Auto) Victoria % (Auto) Lymph # (Auto) Victoria # (Auto) Seg Neutrophils % Seg Neuts % (Manual) Lymphocytes % (Manual) Nucleated RBC % Seg Neutrophils # Lymphocytes # (Manual) PT INR D-Dimer ABG pH POC ABG pCO2 POC ABG pO2 ABG pO2 ABG HCO3 ABG O2 Saturation ABG Base Excess ABG Oxyhemoglobin ABG Sodium ABG Potassium ABG Chloride ABG Glucose Oxyhemoglobin Carboxyhemoglobin Potassium 5.3 H D 5.1 H Chloride Carbon Dioxide 48 H* 37 H D BUN 29 H 23 H Creatinine 0.7 L Glucose 154 H 121 H Calcium Magnesium 2.40 H AST Lactate Dehydrogenase Total Creatine Kinase CK-MB (CK-2) CK-MB (CK-2) Rel Index Troponin T C-Reactive Protein NT-Pro-B Natriuret Pep Albumin HDL Cholesterol Arterial Blood Glucose Arterial Blood Ionized Calcium 08/27/20 08/28/20 08/28/20 08:40 08:05 08:05 RBC 5.31 H Hgb 16.7 H Hct 50.2 H MCV 95 H Plt Count Lymph % (Auto) Victoria % (Auto) Lymph # (Auto) [place] # (Auto) Seg Neutrophils % Seg Neuts % (Manual) Lymphocytes % (Manual) Nucleated RBC % Seg Neutrophils # Lymphocytes # (Manual) PT INR D-Dimer ABG pH 7.333 L POC ABG pCO2 POC ABG pO2 ABG pO2 69.2 L ABG HCO3 37.5 H ABG O2 Saturation 93.7 L ABG Base Excess 8.4 H ABG Oxyhemoglobin ABG Sodium ABG Potassium ABG Chloride ABG Glucose Oxyhemoglobin 91.9 L Carboxyhemoglobin Potassium Chloride Carbon Dioxide 33 H BUN 25 H Creatinine 0.7 L Glucose 138 H Calcium Magnesium AST Lactate Dehydrogenase Total Creatine Kinase CK-MB (CK-2) CK-MB (CK-2) Rel Index Troponin T C-Reactive Protein NT-Pro-B Natriuret Pep Albumin HDL Cholesterol Arterial Blood Glucose Arterial Blood Ionized Calcium 08/30/20 13:04 RBC Hgb Hct MCV Plt Count Lymph % (Auto) Victoria % (Auto) Lymph # (Auto) [place] # (Auto) Seg Neutrophils % Seg Neuts % (Manual) Lymphocytes % (Manual) Nucleated RBC % Seg Neutrophils # Lymphocytes # (Manual) PT INR D-Dimer ABG pH POC ABG pCO2 POC ABG pO2 ABG pO2 ABG HCO3 ABG O2 Saturation ABG Base Excess ABG Oxyhemoglobin ABG Sodium ABG Potassium ABG Chloride ABG Glucose Oxyhemoglobin Carboxyhemoglobin Potassium Chloride 97.9 L Carbon Dioxide 32 H BUN 35 H Creatinine 0.7 L Glucose 167 H Calcium Magnesium AST Lactate Dehydrogenase Total Creatine Kinase CK-MB (CK-2) CK-MB (CK-2) Rel Index Troponin T C-Reactive Protein NT-Pro-B Natriuret Pep Albumin HDL Cholesterol Arterial Blood Glucose Arterial Blood Ionized Calcium
--- NOTE | 2020-09-01 16:18 | Discharge Summary ---
Providers - Providers Date of Admission: 08/21/20 17:45 Attending physician: MARCO ANTONIO MARINO MD 08/22/20 08:09 Consult to Physician [CONS] Routine Comment: dr. rand came and see patient/ eliza Consulting Provider: BENEDICT RAND Physician Instructions: Reason For Exam: CHF exacerbation 08/24/20 08:30 Consult to Physician [CONS] Routine Comment: noted/ eliza Consulting Provider: ROMEO CRAWFORD Physician Instructions: Reason For Exam: Hypoxic respiratory failure 08/24/20 08:31 Consult to Physician [CONS] Routine Comment: spoke to mikala mosley PHOTOENGRAVING HELPER/ eliza Consulting Provider: LYNN MATTHEWS Physician Instructions: Reason For Exam: Bipolar Disorder 08/24/20 11:08 Consult to Mental Health [CONS] Routine Reason For Exam: bipolar, ams 08/28/20 14:16 Physical Therapy Evaluation and Treat [CONS] Stat Comment: Reason For Exam: eval and treat 08/28/20 14:18 Occupational Therapy Evaluate and Treat [CONS] Stat Comment: Reason For Exam: eval and treat Primary care physician: RISK INVESTIGATOR Hospitalization Condition: Serious Disposition: [id number] HOME [facility] Final Discharge Diagnosis (Prints w/discharge instructions): Acute COPD exacerbation Core Measure Documentation - Palliative Care Palliative Care/ Comfort Measures: Not Applicable - Core Measures Any of the following diagnoses?: none Exam - Constitutional Vitals: Temp Pulse Resp BP Pulse Ox 98.1 F 93 H 18 121/82 94 09/01/20 03:59 09/01/20 08:45 09/01/20 08:45 09/01/20 03:59 09/01/20 09:57 Plan Activity: advance as tolerated Weight Bearing Status: Weight Bear as Tolerated Diet: low fat Additional Instructions: Follow-up with pulmonary, Dr Contreras In 1 to 2 weeks. Take prednisone as follows. 40 mg daily x4 days. 20 mg daily times 4 days. 10 mg daily x4 days then stop Follow up with: PRIMARY CARE, [Primary Care Provider] - 7 Days ROMEO CRAWFORD MD [Staff Physician] - 7 Days Prescriptions: predniSONE [Deltasone] 20 mg PO QDAY #4 tab
[2020-09-01] MEDS: BUTALB/ACETAMINOPHEN/CAFFEINE TAB PO PRN (19:36)
[2020-09-01 21:23] VITALS: BP 111/65
== END 2020-09-01 23:20 | disposition home health service (06) | DRG 193 ==
LOC: ED 15:07 → IMCU 17:45 → 3A 08-27 12:18
PROVIDERS: ADMIT Internal Medicine; ATTEND Internal Medicine
PROC: 4A033R1 Measurement of Arterial Saturation, Peripheral, Percutaneous Approach (ICD-10-PCS; principal; 2020-08-21)
PROC: 5A09557 Assistance with Respiratory Ventilation, Greater than 96 Consecutive Hours, Continuous Positive Airway Pressure (ICD-10-PCS; 2020-08-21)
DX: J18.9 Pneumonia, unspecified organism (principal); J96.01 Acute respiratory failure with hypoxia; G92 Toxic encephalopathy; J96.22 Acute and chronic respiratory failure with hypercapnia; N17.9 Acute kidney failure, unspecified; Z20.822 Contact with and (suspected) exposure to COVID-19; I50.9 Heart failure, unspecified; I11.0 Hypertensive heart disease with heart failure; G47.33 Obstructive sleep apnea (adult) (pediatric); D75.1 Secondary polycythemia; E66.9 Obesity, unspecified; J43.9 Emphysema, unspecified; F17.200 Nicotine dependence, unspecified, uncomplicated; Z79.899 Other long term (current) drug therapy; Z68.30 Body mass index [BMI] 30.0-30.9, adult; Z95.5 Presence of coronary angioplasty implant and graft
CPT/HCPCS: 36415; 36600; 71045; 71275; 80048; 80053; 80061; 82140; 82550; 82553; 82803; 82805; 82962; 83036; 83615; 83735; 83880; 84100; 84145; 84484; 85007; 85025; 85027; 85379; 85610; 85730; 86140; 87040; 87116; 93005; 94640; 94660; 96365; 99406; G0378; J0456; J0696; J1120; J1200; J1630; J1940; J2060; J2270; J2920; J7050; J7512; Q0177; Q9967; U0003